=== PATIENT | male | born 1960 | race Caucasian/White ===

== ENCOUNTER 2017-10-12 13:40 | Emergency (ER) | payer OTHER ==
[~2017-10-12] VITALS: Ht 162.6 cm; Wt 87.0 kg
[2017-10-12 13:57] VITALS: BP 129/60; PULSE 111; RESP 22; TEMP 97.8; O2SAT 97
--- NOTE | 2017-10-12 14:09 | PD ---
HPI Chief Complaint: Medical Clearance Time Seen by Provider: 13:59 Travel History International Travel<30 days: No Contact w/Intl Traveler<30days: No Traveled to known affect area: No History of Present Illness HPI 57-year-old male presents to the emergency department under Isai's act. According to the [facility] senior care of intoxicated person report" Mr. Forrester was advised as stumbling drunk, unable to keep balance for treatment. Usama became combative and upset and had to be physically restrained. Due to these conditions, Isai's act is necessary." The patient arrives restrained and restraints are continued upon arrival. The patient is yelling, cursing, and being verbally aggressive towards staff. On my examination he would only answer that he has had 3 alcoholic beverages today and that I need to talk to the land inspector if I think he had more. When I tried to continue to ask him questions he would ask any questions back and I asked them to answer my questions and he came back with the statement, "well are you going to answer my questions first." He continued to curse and belittle the staff in the room. History of present illness is therefore limited secondary to patient uncooperation. PFSH Past Medical History Diabetes: Yes (TYPE 11) Patient Takes Glucophage: No Diminished Hearing: No Hypertension: Yes Tetanus Vaccination: < 5 Years Past Surgical History Other Surgery: Yes (shoulder) Social History Alcohol Use: Yes (DAILY) Tobacco Use: Yes Substance Use: No Allergies-Medications (Allergen,Severity, Reaction): Coded Allergies: lisinopril (Unverified Allergy, Severe, airway edema, 10/12/17) Reported Meds & Prescriptions Reported Meds & Active Scripts Active Active Prescriptions or Reported Medications Unobtainable Review of Systems Except as stated in HPI: all other systems reviewed are Neg Physical Exam Narrative GENERAL: Well-nourished, well-developed male patient, in no acute distress; smells of EtOH; cursing, yelling, being verbally aggressive; agitated ; all extremities restrained SKIN: Warm and dry. HEAD: Atraumatic. Normocephalic. EYES: Pupils equal and round. ENT: Mucosa pink and moist. NECK: Supple. Trachea midline. CARDIOVASCULAR: Regular rate and rhythm. No murmur appreciated. RESPIRATORY: No accessory muscle use. Clear to auscultation. Breath sounds equal bilaterally. GASTROINTESTINAL: Abdomen soft, non-tender, nondistended. Hepatic and splenic margins not palpable. Bowel sounds are active 4 quadrants. MUSCULOSKELETAL: No obvious deformities. No clubbing. No cyanosis. No edema. NEUROLOGICAL: Awake and alert. Oriented 3. No obvious cranial nerve deficits. Motor grossly within normal limits. Normal speech. Moves all extremities. 5/5 strength to all extremities. PSYCHIATRIC: No delusional thought processes. No hallucinations. Data Data Last Documented VS Vital Signs Date Time Temp Pulse Resp B/P (MAP) Pulse Ox O2 Delivery O2 Flow Rate FiO2 10/12/17 13:57 97.8 111 22 129/60 (83) 97 Orders Orders Restraints Violent (10/12/17 14:07) Lorazepam Inj (Ativan Inj) (10/12/17 14:15) Haloperidol Inj (Haldol Inj) (10/12/17 14:15) Ed Discharge Order (10/12/17 18:27) MDM Medical Decision Making Medical Screen Exam Complete: Yes Emergency Medical Condition: Yes Medical Record Reviewed: Yes Differential Diagnosis Alcohol intoxication, alcohol abuse, alcohol dependence, medical clearance Narrative Course 57-year-old male presents under Selby Act. He arrived via EMS in 4-point restraints and restraints will be continued secondary to imminent harm to others. He is being verbally aggressive, cursing, yelling and belittling staff. I tried to talk to the patient and get him to cooperate and he is unwilling to do so. I discussed the patient with Dr. Pro, my attending physician, and she agrees with my plan of care. Haldol 5 mg and Ativan 2 mg ordered. The patient will be given time to calm down, sleep it off and sober up and will be reevaluated at a later time. 1818: Patient is awake and being cooperative. Restraints removed. 1827: Patient has been cooperative and pleasant. He is asking to go home. He has no medical complaints. Patient is clinically sober and safe for discharge. Instructed patient to follow up with primary care provider. Patient verbalizes understanding and agreement with treatment plan. Patient is medically cleared and stable for discharge. Discussed reasons to return to the emergency department. Patient agrees with treatment plan. The patients vital signs are stable and the patient is stable for outpatient follow-up and treatment. Patient discharged home, stable and in no acute distress. Diagnosis Primary Impression: Alcohol intoxication Qualified Codes: F10.929 - Alcohol use, unspecified with intoxication, unspecified Referrals: [facility] Primary Care Physician Patient Instructions: Abuse of Alcohol (ED), Alcohol Dependence (ED), Alcohol Intoxication (ED), General Instructions Additional Instructions: Contract safety to your self and others Stop drinking alcohol Follow-up in the community with community support, such as Alcoholics Anonymous Follow-up with psychiatry Follow-up with primary care provider Follow-up with Mateo Butler Return to the emergency department immediately with worsening of symptoms Med/Other Pt SpecificInfo: No Change to Meds, No Meds Exist/No RX given Scripts Unable to Obtain Active Prescriptions or Reported Meds Disposition: 01 DISCHARGE HOME Condition: Stable Celeste Toure Oct 12, 2017 14:09
[2017-10-12] MEDS ORDERED: LORazepam 2 MG/ML VIAL IM ONE (14:15)
[2017-10-12] MEDS ORDERED: HALOPERIDOL LACTATE 5 MG/ML AMP IM ONE (14:15)
[2017-10-12 18:36] VITALS: BP 142/78
== END 2017-10-12 18:54 | disposition home or self-care (01) ==
LOC: NEPD 13:40
DX: F10.929 Alcohol use, unspecified with intoxication, unspecified (principal); E11.9 Type 2 diabetes mellitus without complications; I10 Essential (primary) hypertension; Z72.0 Tobacco use; Z88.8 Allergy status to other drugs, medicaments and biological substances
CPT/HCPCS: 96372; 99285; J1630; J2060

== ENCOUNTER 2018-01-26 15:24 | Emergency (ER) | payer OTHER ==
[~2018-01-26] VITALS: Ht 172.7 cm; Wt 100.0 kg
[2018-01-26 15:30] VITALS: BP 157/85; PULSE 90; RESP 16; TEMP 98.5; O2SAT 98
--- NOTE | 2018-01-26 16:51 | PD ---
HPI Chief Complaint: Alcohol/Drug Intoxication Time Seen by Provider: 16:50 Travel History International Travel<30 days: No Contact w/Intl Traveler<30days: No Traveled to known affect area: No History of Present Illness HPI 57-year-old male normally seen by the MT, presents to the emergency department voluntarily with his brother for recent binge drinking since Father' s Day. Patient has pain and swelling to the right hand, and left index finger. He is unsure how the injuries occurred. There is old ecchymosis to these areas as well as through the right upper arm, and a couple spots on his back. He states his last drink of alcohol was 2 hours prior to arrival. Patient denies any other medical issues currently. Pain in the hands and fingers is 6 out of 10. Patient denies headache, nausea, vomiting, or diarrhea. Patient denies suicidal or homicidal ideation. Patient is allergic to lisinopril. PFSH Past Medical History Cardiovascular Problems: Yes Diabetes: Yes Diminished Hearing: No Hypertension: Yes Respiratory: Yes Past Surgical History Other Surgery: Yes (shoulder) Social History Alcohol Use: Yes (DAILY) Tobacco Use: Yes Substance Use: No Allergies-Medications (Allergen,Severity, Reaction): Coded Allergies: lisinopril (Unverified Allergy, Severe, airway edema, 10/12/17) Reported Meds & Prescriptions Reported Meds & Active Scripts Active Chlordiazepoxide HCl 25 Mg Capsule 1 Tab PO QID Review of Systems ROS Limitations: Intoxication Except as stated in HPI: all other systems reviewed are Neg General / Constitutional: No: Fever Eyes: No: Visual changes HENT: No: Headaches Cardiovascular: No: Chest Pain or Discomfort Respiratory: No: Shortness of Breath Gastrointestinal: No: Abdominal Pain Genitourinary: No: Dysuria Musculoskeletal: No: Pain Skin: No Rash Neurologic: No: Weakness Psychiatric: Positive: Substance Abuse, No: Anxiety, Depression, Suicidal Ideations, Homicidal Ideation Endocrine: No: Polydipsia Hematologic/Lymphatic: No: Easy Bruising Physical Exam Exam Limitations: Intoxication Narrative GENERAL: Patient appears intoxicated. He is otherwise in no acute distress. SKIN: No open wounds. Patient has multiple ecchymotic areas of various age. Patient has some superficial abrasions to the middle of his back. HEAD: Atraumatic. Normocephalic. Nontender. EYES: Pupils equal and round. No scleral icterus. No injection or drainage. ENT: No nasal bleeding or discharge. Mucous membranes pink and moist. No dental injury. Pharynx is clear. Airways patent. NECK: Trachea midline. Supple and nontender. CARDIOVASCULAR: Regular rate and rhythm. RESPIRATORY: No accessory muscle use. Clear to auscultation. Breath sounds equal bilaterally. GASTROINTESTINAL: Abdomen soft, non-tender, nondistended. Hepatic and splenic margins not palpable. MUSCULOSKELETAL: Extremities without clubbing, cyanosis, or edema. No obvious deformities. Right hand has generalized swelling and ecchymosis across the dorsum. No obvious deformities noted. Manual Qa Tester strength is somewhat limited secondary to pain. NEUROLOGICAL: Awake and alert. No obvious cranial nerve deficits. Motor grossly within normal limits. Five out of 5 muscle strength in the arms and legs. Normal speech. PSYCHIATRIC: Appropriate mood and affect; insight and judgment normal. Data Data Last Documented VS Vital Signs Date Time Temp Pulse Resp B/P (MAP) Pulse Ox O2 Delivery O2 Flow Rate FiO2 01/26/18 15:30 98.5 90 16 157/85 (109) 98 Orders Orders Complete Blood Count With Diff (01/26/18 16:54) Comprehensive Metabolic Panel (01/26/18 16:54) Iv Access Insert/Monitor (01/26/18 16:54) Drug Screen, Random Urine (01/26/18 16:54) Alcohol (Ethanol) (01/26/18 16:54) Finger ([id number]) (01/26/18 16:54) Hand, Complete ([id number]) (01/26/18 16:54) Ice/Cold Pack (01/26/18 16:54) Sodium Chlor 0.9% 1000 Ml Inj (Ns 1000 M (01/26/18 17:00) Thiamine Inj (Thiamine Inj) (01/26/18 17:00) Chlordiazepoxide (Librium) (01/26/18 18:15) Lorazepam (Ativan) (01/26/18 18:15) Splint Or Brace Apply/Monitor (01/26/18 20:42) Ed Discharge Order (01/26/18 20:42) Finger Splint (01/26/18 ) Labs Laboratory Tests Test 01/26/18 17:15 White Blood Count 15.0 TH/MM3 Red Blood Count 5.02 MIL/MM3 Hemoglobin 15.0 GM/DL Hematocrit 44.5 % Mean Corpuscular Volume 88.8 FL Mean Corpuscular Hemoglobin 30.0 PG Mean Corpuscular Hemoglobin Concent 33.8 % Red Cell Distribution Width 15.6 % Platelet Count 227 TH/MM3 Mean Platelet Volume 6.6 FL Neutrophils (%) (Auto) 85.3 % Lymphocytes (%) (Auto) 4.8 % Monocytes (%) (Auto) 9.5 % Eosinophils (%) (Auto) 0.0 % Basophils (%) (Auto) 0.4 % Neutrophils # (Auto) 12.8 TH/MM3 Lymphocytes # (Auto) 0.7 TH/MM3 Monocytes # (Auto) 1.4 TH/MM3 Eosinophils # (Auto) 0.0 TH/MM3 Basophils # (Auto) 0.1 TH/MM3 CBC Comment DIFF FINAL Differential Comment Blood Urea Nitrogen 10 MG/DL Creatinine 1.03 MG/DL Random Glucose 192 MG/DL Total Protein 7.6 GM/DL Albumin 3.9 GM/DL Calcium Level 8.9 MG/DL Alkaline Phosphatase 108 U/L Aspartate Amino Transf (AST/SGOT) 99 U/L Alanine Aminotransferase (ALT/SGPT) 46 U/L Total Bilirubin 1.4 MG/DL Sodium Level 137 MEQ/L Potassium Level 3.4 MEQ/L Chloride Level 101 MEQ/L Carbon Dioxide Level 20.2 MEQ/L Anion Gap 16 MEQ/L Estimat Glomerular Filtration Rate 75 ML/MIN Urine Opiates Screen NEG Urine Barbiturates Screen NEG Urine Amphetamines Screen NEG Urine Benzodiazepines Screen NEG Urine Cocaine Screen NEG Urine Cannabinoids Screen POS Ethyl Alcohol Level 88 MG/DL MDM Medical Decision Making Medical Screen Exam Complete: Yes Emergency Medical Condition: Yes Medical Record Reviewed: Yes Differential Diagnosis EtOH intoxication. Alcohol abuse. Fracture. Contusions Narrative Course Labs ordered including CBC, CMP, urine drug screen, serum alcohol, and x-rays of the right hand and left index finger ordered. Psych screen is ordered as patient would like to go to [facility] Patient is given 25 mg Librium p.o. as well as 1 mg lorazepam p.o. for withdrawal symptoms. X-rays the right hand show no acute process per radiologist. X-ray of the left index finger shows a angulated fracture of the base of the proximal phalanx. Finger splint and papa tape was applied with reapproximation. Patient should follow-up with the MT for his finger fracture after discharge. 1900 hrs. care of the patient is turned over to Isma Diaz PA-C at change of shift. Scripts Chlordiazepoxide HCl (Chlordiazepoxide HCl) 25 Mg Capsule 1 TAB PO QID, #12 Prov: Maegan Carrizales 01/26/18 Condition: Stable Gen Whittington Jan 26, 2018 16:51
[2018-01-26] MEDS ORDERED: THIAMINE HCL 200 MG/2 ML VIAL IM ONE (17:00)
[2018-01-26] MEDS ORDERED: SODIUM CHLOR 0.9% 1000 ML INJ 1,000 ML IV ONE (17:00)
[2018-01-26 17:26] LABS: AUTOMATED NEUTROPHIL # 12.8 TH/MM3 (1.8-7.7); BASOPHIL # 0.1 TH/MM3 (0-0.2); BASOPHIL % 0.4 % (0.0-2.0); HEMATOCRIT 44.5 % (39.0-51.0); LYMPH % 4.8 % (9.0-44.0); LYMPHOCYTE # 0.7 TH/MM3 (1.0-4.8); MEAN CELL VOLUME 88.8 FL (80.0-100.0); MEAN CORPUSCULAR HGB CONC 33.8 % (32.0-36.0); MEAN PLATELET VOLUME 6.6 FL (7.0-11.0); MONO % 9.5 % (0.0-8.0); MONOCYTE # 1.4 TH/MM3 (0-0.9); NEUT % 85.3 % (16.0-70.0); PLATELET COUNT 227 TH/MM3 (150-450); RED BLOOD COUNT 5.02 MIL/MM3 (4.50-5.90); RED CELL DISTRIBUTION WIDTH 15.6 % (11.6-17.2)
--- NOTE | 2018-01-26 17:55 | RADRPT ---
EXAM DATE: 01/26/2018 5:48 PM EDT AGE/SEX: 57 years / Male INDICATIONS: Trauma. CLINICAL DATA: This is the patient's initial encounter. Patient reports that signs and symptoms have been present for 1 day and indicates a pain score of Nonresponsive. MEDICAL/SURGICAL HISTORY: Non-responsive. Non-responsive. COMPARISON: No prior exams available for comparison. FINDINGS: Two-view examination of the second digit demonstrates an oblique fracture through the proximal metaph ysis of the proximal phalanx with moderate dorsal angulation. Metallic prosthesis in the distal aspec t of the second metacarpal. No dislocation at the MCP joint. There is deformity of the distal tuft of the second digit suggesting old healed trauma. CONCLUSION: Angulated fracture of the proximal phalanx of the second digit. Electronically signed by: Leoncio Geller MD 01/26/2018 5:53 PM EDT
[2018-01-26 17:57] LABS: ALBUMIN 3.9 GM/DL (3.4-5.0); ALT (GPT) 46 U/L (12-78); AST (GOT) 99 U/L (15-37); BICARBONATE 20.2 MEQ/L (21.0-32.0); BLOOD UREA NITROGEN 10 MG/DL (7-18); CALCIUM 8.9 MG/DL (8.5-10.1); CHLORIDE 101 MEQ/L (98-107); CREATININE 1.03 MG/DL (0.60-1.30); GLOMERULAR FILTRATION RATE 75 ML/MIN (>89); GLUCOSE,RANDOM 192 MG/DL (74-106); SODIUM (NA) 137 MEQ/L (136-145)
[2018-01-26 17:59] LABS: ALKALINE PHOSPHATASE 108 U/L (45-117); TOTAL BILIRUBIN ADULT 1.4 MG/DL (0.2-1.0); TOTAL PROTEIN 7.6 GM/DL (6.4-8.2)
--- NOTE | 2018-01-26 18:00 | RADRPT ---
EXAM DATE: 01/26/2018 5:47 PM EDT AGE/SEX: 57 years / Male INDICATIONS: Trauma. CLINICAL DATA: This is the patient's initial encounter. Patient reports that signs and symptoms have been present for 1 day and indicates a pain score of Nonresponsive. MEDICAL/SURGICAL HISTORY: Non-responsive. Non-responsive. COMPARISON: No prior exams available for comparison. FINDINGS: There are 6 screws seen through the central and medial carpal bones. There is fusion between the [place], hamate, triquetral bone and lunate. 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 There are some hypertrophic change in the expected location of the scaphoid. There is some joint space narrowing an d hypertrophic change at the fifth DIP joint. An acute abnormality is not seen. CONCLUSION: Chronic changes as described above. Electronically signed by: Vijay Herbert MD 01/26/2018 5:59 PM EDT
[2018-01-26] MEDS ORDERED: chlordiazePOXIDE 25 MG CAP PO ONE (18:15)
[2018-01-26] MEDS ORDERED: LORazepam 1 MG TAB PO ONE (18:15)
[2018-01-26] MEDS ORDERED: CHLO25CA9 PO (20:45)
--- NOTE | 2018-01-26 20:48 | PD ---
Data Data Last Documented VS Vital Signs Date Time Temp Pulse Resp B/P (MAP) Pulse Ox O2 Delivery O2 Flow Rate FiO2 01/26/18 15:30 98.5 90 16 157/85 (109) 98 Orders Orders Complete Blood Count With Diff (01/26/18 16:54) Comprehensive Metabolic Panel (01/26/18 16:54) Iv Access Insert/Monitor (01/26/18 16:54) Drug Screen, Random Urine (01/26/18 16:54) Alcohol (Ethanol) (01/26/18 16:54) Finger (Nxs2oph) (01/26/18 16:54) Hand, Complete ([id number]) (01/26/18 16:54) Ice/Cold Pack (01/26/18 16:54) Sodium Chlor 0.9% 1000 Ml Inj (Ns 1000 M (01/26/18 17:00) Thiamine Inj (Thiamine Inj) (01/26/18 17:00) Chlordiazepoxide (Librium) (01/26/18 18:15) Lorazepam (Ativan) (01/26/18 18:15) Splint Or Brace Apply/Monitor (01/26/18 20:42) Ed Discharge Order (01/26/18 20:42) Labs Laboratory Tests Test 01/26/18 17:15 White Blood Count 15.0 TH/MM3 Red Blood Count 5.02 MIL/MM3 Hemoglobin 15.0 GM/DL Hematocrit 44.5 % Mean Corpuscular Volume 88.8 FL Mean Corpuscular Hemoglobin 30.0 PG Mean Corpuscular Hemoglobin Concent 33.8 % Red Cell Distribution Width 15.6 % Platelet Count 227 TH/MM3 Mean Platelet Volume 6.6 FL Neutrophils (%) (Auto) 85.3 % Lymphocytes (%) (Auto) 4.8 % Monocytes (%) (Auto) 9.5 % Eosinophils (%) (Auto) 0.0 % Basophils (%) (Auto) 0.4 % Neutrophils # (Auto) 12.8 TH/MM3 Lymphocytes # (Auto) 0.7 TH/MM3 Monocytes # (Auto) 1.4 TH/MM3 Eosinophils # (Auto) 0.0 TH/MM3 Basophils # (Auto) 0.1 TH/MM3 CBC Comment DIFF FINAL Differential Comment Blood Urea Nitrogen 10 MG/DL Creatinine 1.03 MG/DL Random Glucose 192 MG/DL Total Protein 7.6 GM/DL Albumin 3.9 GM/DL Calcium Level 8.9 MG/DL Alkaline Phosphatase 108 U/L Aspartate Amino Transf (AST/SGOT) 99 U/L Alanine Aminotransferase (ALT/SGPT) 46 U/L Total Bilirubin 1.4 MG/DL Sodium Level 137 MEQ/L Potassium Level 3.4 MEQ/L Chloride Level 101 MEQ/L Carbon Dioxide Level 20.2 MEQ/L Anion Gap 16 MEQ/L Estimat Glomerular Filtration Rate 75 ML/MIN Urine Opiates Screen NEG Urine Barbiturates Screen NEG Urine Amphetamines Screen NEG Urine Benzodiazepines Screen NEG Urine Cocaine Screen NEG Urine Cannabinoids Screen POS Ethyl Alcohol Level 88 MG/DL MDM Medical Record Reviewed: Yes Supervised Visit with FERNANDO: No Narrative Course See previous providers notes for complete history of present illness. This patient presents complaining of alcoholism. Symptom onset unknown. He reports that he has been a heavy drinker for quite some time and would like to quit drinking so much. He is denying any suicidal ideation, homicidal ideation, depression, hallucinations. He does have a fractured left index finger. Previous provider put a splint on it however he removed it. This will be placed back on. His alcohol level was 88. I discussed with the patient that he would likely benefit from detox at a specialty center such as [facility]. He agrees. He will be given a packet of information about local detoxification centers. He will be discharged with a short course of Librium. Diagnosis Primary Impression: Alcoholism Additional Impression: Fracture of phalanx of left index finger Referrals: Carson Buenrostro MD [facility] Additional Instruction: Do not remove the splint. Follow-up at a detoxification center such as [facility] for help with your alcoholism. Follow-up with a hand specialist such as Dr. Buenrostro in regards to your finger fracture. Return for any emergent medical conditions. Med/Other Pt SpecificInfo: Prescription(s) given, Orthopedic Instructions Scripts Chlordiazepoxide HCl (Chlordiazepoxide HCl) 25 Mg Capsule 1 TAB PO QID, #12 Prov: Maegan Carrizales DO 01/26/18 Disposition: 01 DISCHARGE HOME Condition: Stable Isma Baltazar Jan 26, 2018 20:48
== END 2018-01-26 21:23 | disposition home or self-care (01) ==
LOC: NEPD 15:24
DX: F10.20 Alcohol dependence, uncomplicated (principal); S62.611A Displaced fracture of proximal phalanx of left index finger, initial encounter for closed fracture; S20.419A Abrasion of unspecified back wall of thorax, initial encounter; Y90.4 Blood alcohol level of 80-99 mg/100 ml; X58.XXXA Exposure to other specified factors, initial encounter; I10 Essential (primary) hypertension; E11.9 Type 2 diabetes mellitus without complications; Z72.0 Tobacco use; Z88.8 Allergy status to other drugs, medicaments and biological substances; Z79.899 Other long term (current) drug therapy
CPT/HCPCS: 29130; 73130; 73140; 80053; 80307; 85025; 96360; 96372; 99284; J3411; J7030

== ENCOUNTER 2018-02-02 16:10 | Inpatient (IN) ==
[2018-02-06] MEDS ORDERED: PROTAMINE SULFATE IV.CONT PRN ×2
[2018-02-06] MEDS ORDERED: Chlorhexidine Gluconate 2% 1 Pack (2 Cloths) TOPICAL PRN
[2018-02-06] MEDS ORDERED: Potassium Chlor 40 mEq Premix 40 MEQ/100 ML PIGGYBACK IV.SIG ONE
[2018-02-06] MEDS ORDERED: Heparin 10,000 UNITS/10 ML Vial (for IV use) IV.PUSH PRN
[2018-02-06] MEDS ORDERED: Sodium Bicarbonate 8.4% Inj 50 MEQ/50 ML Syringe IV.SIG SCH
[2018-02-06] MEDS ORDERED: Dextrose 50% in Water 50 ML Vial IV.PUSH PRN
[2018-02-06] MEDS ORDERED: SODIUM CHLORIDE 0.45% IV.CONT SCH ×2
[2018-02-06] MEDS ORDERED: Sod Chloride 0.9% Inj 1,000 ML IV.SIG PRN
[2018-02-06] MEDS ORDERED: SODIUM CHLOR 0.9% IV.CONT PRN ×2
[2018-02-06] MEDS ORDERED: SODIUM BICARBONATE IV.CONT SCH ×2
[2018-02-06] MEDS ORDERED: Heparin Drip 25,000 UNIT/250 ML BAG IV.CONT PRN
[2018-02-06] MEDS ORDERED: [UNRECOGNIZED DRUG - OTHER] OTHER SCH
[2018-02-06] MEDS ORDERED: Sodium Bicarbonate 8.4% Inj 75 MEQ in Sodium Chloride 0.45 % Inj 1,000 ML IV.CONT SCH ×2
[2018-02-06] MEDS ORDERED: Sodium Bicarbonate 8.4% Inj 150 MEQ in Water for Inj, Sterile 850 ML IV.CONT SCH ×2
[2018-02-06] MEDS ORDERED: Sod Chloride 0.9% Inj 1,000 ML IV.SIG SCH ×2 (01:00)
[2018-02-06] MEDS ORDERED: fentaNYL 10 mcg/mL Premix Drip 2,500 MCG/250 ML BAG ONE (01:44)
[2018-02-06] MEDS ORDERED: Calcium Chloride Inj 2 GM in Sodium Chlor 0.9% Inj 100 ML IV.SIG ONE (02:00)
[2018-02-06] MEDS: Amiodarone Inj 450 MG in Sodium Chlor 0.9% Inj 241 ML IV.SIG SCH ×2 (02:03→16:46)
[2018-02-06] MEDS: fentaNYL 10 mcg/mL Premix Drip 2,500 MCG/250 ML BAG IV.CONT PRN ×2 (02:18→13:55)
[2018-02-06] MEDS ORDERED: Potassium Chlor 20 mEq Premix 20 MEQ/100 ML PIGGYBACK IV.SIG ONE (03:17)
[2018-02-06] MEDS ORDERED: Mag Sulf 1 gm/100 ml Premix 100 ML IV.SIG ONE (03:17)
[2018-02-06] MEDS ORDERED: Digoxin Inj 500 MCG/2 ML Ampul IV.PUSH ONE (03:22)
[2018-02-06] MEDS: Propofol 1000 mg/100 ml Inj 1,000 MG/100 ML BOTTLE IV.CONT PRN (03:42)
[2018-02-06] MEDS: Phenylephrine Inj 40 MG in Dextrose 5% in Water Inj 496 ML IV.CONT PRN ×6 (03:44→16:21)
[2018-02-06 04:08] LABS: Hemoglobin 11.7 gm/dL (13.0-17.0); Mean Corpuscular HGB Conc 33.3 % (32.0-36.0); Mean Corpuscular Hemoglobin 29.3 pg (27.0-34.0); Mean Corpuscular Volume 88.1 fL (80.0-100.0); Platelet Count 66 th/mm3 (150-450); Red Blood Count 3.97 mil/mm3 (4.50-5.90); White Blood Count 24.5 th/mm3 (4.0-11.0)
[2018-02-06 04:29] LABS: Activated Partial Thrombo Time 34.5 sec (24.3-30.1); INR 1.1 Ratio; Prothrombin Time 10.7 sec (9.8-11.6)
[2018-02-06 04:54] LABS: Albumin 1.1 g/dL (3.4-5.0); Calcium 6.2 mg/dL (8.5-10.1); Carbon Dioxide 22.6 meq/L (21.0-32.0); Magnesium 1.8 mg/dL (1.5-2.5); Phosphorus 4.4 mg/dL (2.5-4.9); Potassium 3.6 meq/L (3.5-5.1); Total Protein 4.6 g/dL (6.4-8.2)
[2018-02-06] MEDS: SODIUM CHLOR 0.9% IV.SIG SCH ×3 (05:17→22:30)
[2018-02-06] MEDS: TAZOBACTAM IV.SIG SCH ×2 (05:17→13:02)
[2018-02-06] MEDS: CEFTOLOZANE IV.SIG SCH ×2 (05:17→13:02)
[2018-02-06] MEDS: Chlorhexidine Gluconate 2% 1 Pack (2 Cloths) TOPICAL SCH (05:21)
[2018-02-06] MEDS ORDERED: Heparin - SQ 10,000 UNITS/ML Vial SQ SCH (06:00)
[2018-02-06] MEDS: Pantoprazole Inj 40 MG Vial IV.PUSH SCH (08:02)
[2018-02-06] MEDS: Chlorhexidine 0.12% Oral Kit 15 ML UDC OROPHARYNG SCH ×2 (08:03→21:17)
[2018-02-06] MEDS ORDERED: Ceftaroline Inj 300 MG in Sodium Chlor 0.9% Inj 100 ML IV.SIG SCH (09:00)
[2018-02-06 09:28] LABS: Carbon Dioxide 24.1 meq/L (21.0-32.0)
[2018-02-06 09:29] LABS: Calcium 6.2 mg/dL (8.5-10.1)
--- NOTE | 2018-02-06 09:36 | P.PN ---
Subjective Interval history: Patient remain intubated and sedated on Levophed, BP is on lower side. Physical Exam Vital signs: Vital Signs 02/06/18 00:05 02/06/18 01:00 02/06/18 02:00 Temperature Pulse Rate 166 H 102 H 108 H Respiratory Rate 18 18 18 Blood Pressure 101/55 L 93/53 L Pulse Oximetry 93 L 93 L 93 L 02/06/18 03:00 02/06/18 03:03 02/06/18 03:24 Temperature Pulse Rate 104 H 107 H Respiratory Rate 18 18 18 Blood Pressure 99/57 L 82/60 L Pulse Oximetry 93 L 94 L 95 02/06/18 04:00 02/06/18 05:00 02/06/18 06:00 Temperature Pulse Rate 107 H 104 H 101 H Respiratory Rate 2 L 14 6 L Blood Pressure 110/57 L 106/57 L 105/64 Pulse Oximetry 93 L 93 L 94 L 02/06/18 07:00 02/06/18 08:36 02/06/18 08:43 Temperature 100.1 F H Pulse Rate 103 H 103 H 103 H Respiratory Rate 19 18 18 Blood Pressure 100/57 L 98/55 L Pulse Oximetry 100 94 L 94 L Intake & Output 02/05/18 02/06/18 02/06/18 18:59 06:59 18:59 Intake Total 520 / 520 100 / 100 Output Total 270 / 270 Balance 250 / 250 100 / 100 Weight 101 kg Intake: IV 520 / 520 100 / 100 Calcium Chloride Inj 2 GM In NS 120 / 120 Inj 100 ML @ 120 mls/hr IV.SIG ONCE ONE Rx#:[id number] Teflaro Inj 300 MG In NS Inj 100 / 100 100 ML @ 100 mls/hr IV.SIG Q12HR LEROY Rx#:[id number] Zerbaxa Inj 375 MG In NS Inj 100 / 100 100 ML @ 100 mls/hr IV.SIG Q8HR LEROY Rx#:[id number] Magnesium Sulfate 1 gm/D5W 100 100 / 100 ml Premix 100 ML @ 100 mls/hr IV.SIG ONCE ONE Rx#:[id number] Flagyl 500 MG Inj 100 ML @ 100 200 / 200 mls/hr IV.SIG Q6H LEROY Rx#: [id number] Output: Urine 30 / 30 Gastric Drainage 230 / 230 Orogastric Tube 230 / 230 Chest Tube Drainage 10 / 10 #1 Right Anterior 10 / 10 - Constitutional Comments: Intubated and sedated. - Routine HEENT Exam Head: Present: normocephalic - Routine Neck Exam Present: supple, trachea midline - Routine Respiratory Exam Present: patient mechanically ventilated, decreased breath sounds, prolonged expiratory phase, rales, rhonchi - Routine Cardiovascular Exam Present: S1, S2, tachycardia, irregularly irregular - Routine Abdominal Exam Present: soft, distended, firm - Routine Extremities Exam Present: edema - Routine Neurological Exam Sedated and intubated. - Urinary Catheter Management Coude Cath placed during this visit: yes Insertion date: 02/02/18 Indwelling Urethral Catheter Cath placed during this visit: yes Urethral indwelling: Yes Reason for continuing: Chronic Urinary Retention Insertion date: 02/15/18 Insertion time: 20:00 Results - Labs CBC & Chem 7: 02/18/18 10:45 02/18/18 04:01 Laboratory Results - last 24 hr 02/02/18 02/02/18 02/02/18 16:22 16:22 16:22 WBC RBC Hgb Hct MCV MCH MCHC RDW Plt Count MPV Neut % (Auto) Lymph % (Auto) [place] % (Auto) Eos % (Auto) Baso % (Auto) Neut # (Auto) Lymph # (Auto) [place] # (Auto) Eos # (Auto) Baso # (Auto) CBC Comment Total Counted Neutrophils % (Manual) Band Neutrophils % Lymphocytes % Monocytes % Eosinophils % Neutrophils # (Manual) Metamyelocytes Nucleated RBCs Differential Comment Toxic Granulation Toxic Vacuolation Dohle Bodies Platelet Estimate Plt Morphology Comment Target Cells Tear Drop Cells [place] Cells RBC Morph Comment PT INR APTT Fibrinogen Puncture Site Patient Temperature HCO3 Base Excess O2 Saturation ABG pH ABG pCO2 ABG pO2 ABG O2 Content ABG Carboxyhemoglobin ABG Methemoglobin Hemoglobin O2 Delivery Device Vent Setting Inspired O2 Sodium 133 L Potassium 3.4 L Chloride 96 L Carbon Dioxide 10.9 L Anion Gap 26 H BUN 81 H Creatinine 5.71 H Estimated GFR 10 L Random Glucose 142 H Serum Osmolality Lactic Acid Calcium 5.8 L* Prot Corrected Calcium 6.5 L* Phosphorus Magnesium Iron TIBC % Saturation Ferritin Total Bilirubin 1.7 H AST 1685 H ALT 307 H Alkaline Phosphatase 66 Ammonia LESS THAN 10 L Total Creatine Kinase 1286 H CK-MB (CK-2) 8.6 H CK-MB (CK-2) % 0.7 Troponin I 0.03 Total Protein 5.4 L D Albumin 1.8 L Prealbumin Nlkoy-9-Ksygokctlfn Amylase Lipase Tumor Marker AFP TSH 3rd Generation 1.610 Urine Color Urine Turbidity Urine pH Ur Specific [place] Urine Protein Urine Glucose (UA) Urine Ketones Urine Occult Blood Urine Nitrite Urine Bilirubin Urine Urobilinogen Ur Leukocyte Esterase Urine RBC Urine WBC Urine Bacteria Micro UA Comment Urine Osmolality Ur Random Creatinine Ur Random Sodium Pleural pH Pleural WBC Pleural RBC Pleural Neutrophils Pleural Lymphocytes Pleural Monocytes Pleural Fluid Comment Pleural Total Protein Pleural LDH Pleural Glucose Nasal Screen MRSA (PCR) Random Vancomycin Salicylates 5.1 Urine Opiates Screen Acetaminophen LESS THAN 2.0 L Ur Barbiturates Screen Ur Amphetamines Screen U Benzodiazepines Scrn Urine Cocaine Screen U Cannabinoids Screen Ethyl Alcohol LESS THAN 3 GARY Screen Hepatitis A IgM Ab Hep Bs Antigen Hep B Core IgM Ab Hep C IgG Ab HIV 1&2 Ab/P24 Ag 4thGn 02/02/18 02/02/18 02/02/18 16:22 16:22 16:22 WBC 3.4 L RBC 4.98 Hgb 14.7 Hct 44.2 MCV 88.8 MCH 29.6 MCHC 33.3 RDW 15.9 Plt Count 50 L D MPV 11.3 H Neut % (Auto) 92.4 H Lymph % (Auto) 4.4 L [place] % (Auto) 2.6 Eos % (Auto) 0.4 Baso % (Auto) 0.2 Neut # (Auto) 3.2 Lymph # (Auto) 0.2 L [place] # (Auto) 0.1 Eos # (Auto) 0.0 Baso # (Auto) 0.0 CBC Comment AUTO DIFF Total Counted 100 Neutrophils % (Manual) 63 Band Neutrophils % 30 H Lymphocytes % 4 L Monocytes % 2 Eosinophils % 1 Neutrophils # (Manual) 3.2 Metamyelocytes Nucleated RBCs Differential Comment FINAL DIFF MANUAL Toxic Granulation 3+ H Toxic Vacuolation PRESENT H Dohle Bodies PRESENT H Platelet Estimate LOW L Plt Morphology Comment NORMAL Target Cells Tear Drop Cells Uriah Cells 2+ H RBC Morph Comment PT 12.0 H INR 1.2 APTT 32.9 H Fibrinogen Puncture Site Patient Temperature HCO3 Base Excess O2 Saturation ABG pH ABG pCO2 ABG pO2 ABG O2 Content ABG Carboxyhemoglobin ABG Methemoglobin Hemoglobin O2 Delivery Device Vent Setting Inspired O2 Sodium Potassium Chloride Carbon Dioxide Anion Gap BUN Creatinine Estimated GFR Random Glucose Serum Osmolality Lactic Acid Calcium Prot Corrected Calcium Phosphorus Magnesium Iron TIBC % Saturation Ferritin Total Bilirubin AST ALT Alkaline Phosphatase Ammonia Total Creatine Kinase CK-MB (CK-2) CK-MB (CK-2) % Troponin I Total Protein Albumin Prealbumin LESS THAN 3 L Rpdfk-4-Pyskcqndtxm Amylase Lipase Tumor Marker AFP TSH 3rd Generation Urine Color Urine Turbidity Urine pH Ur Specific [place] Urine Protein Urine Glucose (UA) Urine Ketones Urine Occult Blood Urine Nitrite Urine Bilirubin Urine Urobilinogen Ur Leukocyte Esterase Urine RBC Urine WBC Urine Bacteria Micro UA Comment Urine Osmolality Ur Random Creatinine Ur Random Sodium Pleural pH Pleural WBC Pleural RBC Pleural Neutrophils Pleural Lymphocytes Pleural Monocytes Pleural Fluid Comment Pleural Total Protein Pleural LDH Pleural Glucose Nasal Screen MRSA (PCR) Random Vancomycin Salicylates Urine Opiates Screen Acetaminophen Ur Barbiturates Screen Ur Amphetamines Screen U Benzodiazepines Scrn Urine Cocaine Screen U Cannabinoids Screen Ethyl Alcohol GARY Screen Hepatitis A IgM Ab Hep Bs Antigen Hep B Core IgM Ab Hep C IgG Ab HIV 1&2 Ab/P24 Ag 4thGn 02/02/18 02/02/18 02/02/18 16:22 17:09 17:14 WBC RBC Hgb Hct MCV MCH MCHC RDW Plt Count MPV Neut % (Auto) Lymph % (Auto) [place] % (Auto) Eos % (Auto) Baso % (Auto) Neut # (Auto) Lymph # (Auto) [place] # (Auto) Eos # (Auto) Baso # (Auto) CBC Comment Total Counted Neutrophils % (Manual) Band Neutrophils % Lymphocytes % Monocytes % Eosinophils % Neutrophils # (Manual) Metamyelocytes Nucleated RBCs Differential Comment Toxic Granulation Toxic Vacuolation Dohle Bodies Platelet Estimate Plt Morphology Comment Target Cells Tear Drop Cells [place] Cells RBC Morph Comment PT INR APTT Fibrinogen Puncture Site Patient Temperature HCO3 Base Excess O2 Saturation ABG pH ABG pCO2 ABG pO2 ABG O2 Content ABG Carboxyhemoglobin ABG Methemoglobin Hemoglobin O2 Delivery Device Vent Setting Inspired O2 Sodium Potassium Chloride Carbon Dioxide Anion Gap BUN Creatinine Estimated GFR Random Glucose Serum Osmolality 304 H Lactic Acid 6.5 H* Calcium Prot Corrected Calcium Phosphorus Magnesium Iron TIBC % Saturation Ferritin Total Bilirubin AST ALT Alkaline Phosphatase Ammonia Total Creatine Kinase CK-MB (CK-2) CK-MB (CK-2) % Troponin I Total Protein Albumin Prealbumin Sbeyg-8-Rshkiofpsue Amylase Lipase Tumor Marker AFP TSH 3rd Generation Urine Color Taisha Urine Turbidity CLOUDY H Urine pH 5.0 Ur Specific [place] 1.017 Urine Protein 100 H Urine Glucose (UA) 50 Urine Ketones NEG Urine Occult Blood LARGE H Urine Nitrite NEG Urine Bilirubin NEG Urine Urobilinogen 2.0 H Ur Leukocyte Esterase NEG Urine RBC Urine WBC Urine Bacteria FEW H Micro UA Comment CATH-CULTURE IND Urine Osmolality Ur Random Creatinine Ur Random Sodium Pleural pH Pleural WBC Pleural RBC Pleural Neutrophils Pleural Lymphocytes Pleural Monocytes Pleural Fluid Comment Pleural Total Protein Pleural LDH Pleural Glucose Nasal Screen MRSA (PCR) Random Vancomycin Salicylates Urine Opiates Screen Acetaminophen Ur Barbiturates Screen Ur Amphetamines Screen U Benzodiazepines Scrn Urine Cocaine Screen U Cannabinoids Screen Ethyl Alcohol GARY Screen Hepatitis A IgM Ab Hep Bs Antigen Hep B Core IgM Ab Hep C IgG Ab HIV 1&2 Ab/P24 Ag 4thGn 02/02/18 02/02/18 02/02/18 17:20 17:21 17:21 WBC RBC Hgb Hct MCV MCH MCHC RDW Plt Count MPV Neut % (Auto) Lymph % (Auto) [place] % (Auto) Eos % (Auto) Baso % (Auto) Neut # (Auto) Lymph # (Auto) [place] # (Auto) Eos # (Auto) Baso # (Auto) CBC Comment Total Counted Neutrophils % (Manual) Band Neutrophils % Lymphocytes % Monocytes % Eosinophils % Neutrophils # (Manual) Metamyelocytes Nucleated RBCs Differential Comment Toxic Granulation Toxic Vacuolation Dohle Bodies Platelet Estimate Plt Morphology Comment Target Cells Tear Drop Cells [place] Cells RBC Morph Comment PT INR APTT Fibrinogen Puncture Site LT FEMORAL Patient Temperature 98.6 HCO3 15 L* Base Excess -12.9 L O2 Saturation 97 ABG pH 7.13 L* ABG pCO2 47 H ABG pO2 212 H ABG O2 Content 17.8 ABG Carboxyhemoglobin 0.5 ABG Methemoglobin 0.8 Hemoglobin 12.7 O2 Delivery Device VENTILATOR Vent Setting AC/16/500/+5 Inspired O2 100 Sodium Potassium Chloride Carbon Dioxide Anion Gap BUN Creatinine Estimated GFR Random Glucose Serum Osmolality Lactic Acid Calcium Prot Corrected Calcium Phosphorus Magnesium Iron TIBC % Saturation Ferritin Total Bilirubin AST ALT Alkaline Phosphatase Ammonia Total Creatine Kinase CK-MB (CK-2) CK-MB (CK-2) % Troponin I Total Protein Albumin Prealbumin Otofk-5-Rmowqwnsqkd Amylase Lipase Tumor Marker AFP TSH 3rd Generation Urine Color Urine Turbidity Urine pH Ur Specific [place] Urine Protein Urine Glucose (UA) Urine Ketones Urine Occult Blood Urine Nitrite Urine Bilirubin Urine Urobilinogen Ur Leukocyte Esterase Urine RBC Urine WBC Urine Bacteria Micro UA Comment Urine Osmolality 328 Ur Random Creatinine 237.3 Ur Random Sodium 14 Pleural pH Pleural WBC Pleural RBC Pleural Neutrophils Pleural Lymphocytes Pleural Monocytes Pleural Fluid Comment Pleural Total Protein Pleural LDH Pleural Glucose Nasal Screen MRSA (PCR) Random Vancomycin Salicylates Urine Opiates Screen NEG Acetaminophen Ur Barbiturates Screen NEG Ur Amphetamines Screen NEG U Benzodiazepines Scrn POS H Urine Cocaine Screen NEG U Cannabinoids Screen POS H Ethyl Alcohol GARY Screen Hepatitis A IgM Ab Hep Bs Antigen Hep B Core IgM Ab Hep C IgG Ab HIV 1&2 Ab/P24 Ag 4thGn 02/02/18 02/02/18 02/02/18 18:03 21:30 21:30 WBC RBC Hgb Hct MCV MCH MCHC RDW Plt Count MPV Neut % (Auto) Lymph % (Auto) [place] % (Auto) Eos % (Auto) Baso % (Auto) Neut # (Auto) Lymph # (Auto) [place] # (Auto) Eos # (Auto) Baso # (Auto) CBC Comment Total Counted Neutrophils % (Manual) Band Neutrophils % Lymphocytes % Monocytes % Eosinophils % Neutrophils # (Manual) Metamyelocytes Nucleated RBCs Differential Comment Toxic Granulation Toxic Vacuolation Dohle Bodies Platelet Estimate Plt Morphology Comment Target Cells Tear Drop Cells Uriah Cells RBC Morph Comment PT INR APTT Fibrinogen Puncture Site ART LINE Patient Temperature 98.6 HCO3 19 L Base Excess -5.7 L O2 Saturation 95 ABG pH 7.33 L ABG pCO2 37 L ABG pO2 129 H ABG O2 Content 16.1 ABG Carboxyhemoglobin 0.8 ABG Methemoglobin 1.5 Hemoglobin 11.9 L O2 Delivery Device VENTILATOR Vent Setting VOLUME A/C Inspired O2 100 Sodium 138 Potassium Chloride Carbon Dioxide Anion Gap BUN Creatinine Estimated GFR Random Glucose Serum Osmolality Lactic Acid 7.0 H* Calcium Prot Corrected Calcium Phosphorus Magnesium Iron TIBC % Saturation Ferritin Total Bilirubin AST ALT Alkaline Phosphatase Ammonia Total Creatine Kinase 1596 H CK-MB (CK-2) 8.8 H CK-MB (CK-2) % 0.6 Troponin I 0.04 Total Protein Albumin Prealbumin Ivsld-7-Gpqyfqqqesu Amylase Lipase Tumor Marker AFP TSH 3rd Generation Urine Color Urine Turbidity Urine pH Ur Specific [place] Urine Protein Urine Glucose (UA) Urine Ketones Urine Occult Blood Urine Nitrite Urine Bilirubin Urine Urobilinogen Ur Leukocyte Esterase Urine RBC Urine WBC Urine Bacteria Micro UA Comment Urine Osmolality Ur Random Creatinine Ur Random Sodium Pleural pH Pleural WBC Pleural RBC Pleural Neutrophils Pleural Lymphocytes Pleural Monocytes Pleural Fluid Comment Pleural Total Protein Pleural LDH Pleural Glucose Nasal Screen MRSA (PCR) Random Vancomycin Salicylates Urine Opiates Screen Acetaminophen Ur Barbiturates Screen Ur Amphetamines Screen U Benzodiazepines Scrn Urine Cocaine Screen U Cannabinoids Screen Ethyl Alcohol GARY Screen Hepatitis A IgM Ab Hep Bs Antigen Hep B Core IgM Ab Hep C IgG Ab HIV 1&2 Ab/P24 Ag 4thGn 02/02/18 02/03/18 02/03/18 23:15 04:15 04:15 WBC RBC Hgb Hct MCV MCH MCHC RDW Plt Count MPV Neut % (Auto) Lymph % (Auto) [place] % (Auto) Eos % (Auto) Baso % (Auto) Neut # (Auto) Lymph # (Auto) [place] # (Auto) Eos # (Auto) Baso # (Auto) CBC Comment Total Counted Neutrophils % (Manual) Band Neutrophils % Lymphocytes % Monocytes % Eosinophils % Neutrophils # (Manual) Metamyelocytes Nucleated RBCs Differential Comment Toxic Granulation Toxic Vacuolation Dohle Bodies Platelet Estimate Plt Morphology Comment Target Cells Tear Drop Cells Uri[place] Cells RBC Morph Comment PT INR APTT Fibrinogen Puncture Site Patient Temperature HCO3 Base Excess O2 Saturation ABG pH ABG pCO2 ABG pO2 ABG O2 Content ABG Carboxyhemoglobin ABG Methemoglobin Hemoglobin O2 Delivery Device Vent Setting Inspired O2 Sodium 136 Potassium 3.4 L Chloride 97 L Carbon Dioxide 15.5 L Anion Gap 24 H BUN 85 H Creatinine 5.55 H Estimated GFR 11 L Random Glucose 121 H Serum Osmolality Lactic Acid 6.6 H* Calcium 6.8 L* D Prot Corrected Calcium 7.9 L D Phosphorus 5.0 H Magnesium 2.0 Iron TIBC % Saturation Ferritin Total Bilirubin 2.4 H AST 1778 H ALT 294 H Alkaline Phosphatase 67 Ammonia Total Creatine Kinase 2164 H CK-MB (CK-2) 9.3 H CK-MB (CK-2) % 0.4 Troponin I 0.09 H Total Protein 4.9 L Albumin 1.4 L Prealbumin Ycdxa-6-Zydsfubplav Amylase Lipase Tumor Marker AFP TSH 3rd Generation Urine Color Urine Turbidity Urine pH Ur Specific [place] Urine Protein Urine Glucose (UA) Urine Ketones Urine Occult Blood Urine Nitrite Urine Bilirubin Urine Urobilinogen Ur Leukocyte Esterase Urine RBC Urine WBC Urine Bacteria Micro UA Comment Urine Osmolality Ur Random Creatinine Ur Random Sodium Pleural pH Pleural WBC Pleural RBC Pleural Neutrophils Pleural Lymphocytes Pleural Monocytes Pleural Fluid Comment Pleural Total Protein Pleural LDH Pleural Glucose Nasal Screen MRSA (PCR) MRSA NOT DETECTED Random Vancomycin Salicylates Urine Opiates Screen Acetaminophen Ur Barbiturates Screen Ur Amphetamines Screen U Benzodiazepines Scrn Urine Cocaine Screen U Cannabinoids Screen Ethyl Alcohol GARY Screen Hepatitis A IgM Ab Hep Bs Antigen Hep B Core IgM Ab Hep C IgG Ab HIV 1&2 Ab/P24 Ag 4thGn 02/03/18 02/03/18 02/03/18 04:15 04:15 08:18 WBC 3.6 L RBC 4.60 Hgb 13.6 Hct 40.4 MCV 87.9 MCH 29.7 MCHC 33.8 RDW 16.2 Plt Count 61 L MPV 11.5 H Neut % (Auto) Lymph % (Auto) [place] % (Auto) Eos % (Auto) Baso % (Auto) Neut # (Auto) Lymph # (Auto) [place] # (Auto) Eos # (Auto) Baso # (Auto) CBC Comment Total Counted Neutrophils % (Manual) Band Neutrophils % Lymphocytes % Monocytes % Eosinophils % Neutrophils # (Manual) Metamyelocytes Nucleated RBCs Differential Comment Toxic Granulation Toxic Vacuolation Dohle Bodies Platelet Estimate Plt Morphology Comment Target Cells Tear Drop Cells Uriah Cells RBC Morph Comment PT 11.1 INR 1.1 APTT 35.1 H Fibrinogen Puncture Site ART LINE Patient Temperature 98.6 HCO3 16 L* Base Excess -8.3 L O2 Saturation 93 ABG pH 7.38 ABG pCO2 28 L ABG pO2 88 ABG O2 Content 18.2 ABG Carboxyhemoglobin 0.4 ABG Methemoglobin 1.6 Hemoglobin 13.9 O2 Delivery Device VENTILATOR Vent Setting AC22/650/PEEP5 Inspired O2 40 Sodium Potassium Chloride Carbon Dioxide Anion Gap BUN Creatinine Estimated GFR Random Glucose Serum Osmolality Lactic Acid Calcium Prot Corrected Calcium Phosphorus Magnesium Iron TIBC % Saturation Ferritin Total Bilirubin AST ALT Alkaline Phosphatase Ammonia Total Creatine Kinase CK-MB (CK-2) CK-MB (CK-2) % Troponin I Total Protein Albumin Prealbumin Lyszu-3-Wqysidztdyi Amylase Lipase Tumor Marker AFP TSH 3rd Generation Urine Color Urine Turbidity Urine pH Ur Specific [place] Urine Protein Urine Glucose (UA) Urine Ketones Urine Occult Blood Urine Nitrite Urine Bilirubin Urine Urobilinogen Ur Leukocyte Esterase Urine RBC Urine WBC Urine Bacteria Micro UA Comment Urine Osmolality Ur Random Creatinine Ur Random Sodium Pleural pH Pleural WBC Pleural RBC Pleural Neutrophils Pleural Lymphocytes Pleural Monocytes Pleural Fluid Comment Pleural Total Protein Pleural LDH Pleural Glucose Nasal Screen MRSA (PCR) Random Vancomycin Salicylates Urine Opiates Screen Acetaminophen Ur Barbiturates Screen Ur Amphetamines Screen U Benzodiazepines Scrn Urine Cocaine Screen U Cannabinoids Screen Ethyl Alcohol GARY Screen Hepatitis A IgM Ab Hep Bs Antigen Hep B Core IgM Ab Hep C IgG Ab HIV 1&2 Ab/P24 Ag 4thGn 02/03/18 02/03/18 02/03/18 10:45 10:45 10:45 WBC RBC Hgb Hct MCV MCH MCHC RDW Plt Count MPV Neut % (Auto) Lymph % (Auto) [place] % (Auto) Eos % (Auto) Baso % (Auto) Neut # (Auto) Lymph # (Auto) [place] # (Auto) Eos # (Auto) Baso # (Auto) CBC Comment Total Counted Neutrophils % (Manual) Band Neutrophils % Lymphocytes % Monocytes % Eosinophils % Neutrophils # (Manual) Metamyelocytes Nucleated RBCs Differential Comment Toxic Granulation Toxic Vacuolation Dohle Bodies Platelet Estimate Plt Morphology Comment Target Cells Tear Drop Cells [place] Cells RBC Morph Comment PT INR APTT Fibrinogen GREATER THAN 860 H Puncture Site Patient Temperature HCO3 Base Excess O2 Saturation ABG pH ABG pCO2 ABG pO2 ABG O2 Content ABG Carboxyhemoglobin ABG Methemoglobin Hemoglobin O2 Delivery Device Vent Setting Inspired O2 Sodium Potassium Chloride Carbon Dioxide Anion Gap BUN Creatinine Estimated GFR Random Glucose Serum Osmolality Lactic Acid Calcium Prot Corrected Calcium Phosphorus Magnesium Iron TIBC % Saturation Ferritin Total Bilirubin AST ALT Alkaline Phosphatase Ammonia Total Creatine Kinase CK-MB (CK-2) CK-MB (CK-2) % Troponin I Total Protein Albumin Prealbumin Tigyp-6-Bmviasaxfki Amylase Lipase Tumor Marker AFP TSH 3rd Generation Urine Color Urine Turbidity Urine pH Ur Specific [place] Urine Protein Urine Glucose (UA) Urine Ketones Urine Occult Blood Urine Nitrite Urine Bilirubin Urine Urobilinogen Ur Leukocyte Esterase Urine RBC Urine WBC Urine Bacteria Micro UA Comment Urine Osmolality Ur Random Creatinine Ur Random Sodium Pleural pH Pleural WBC Pleural RBC Pleural Neutrophils Pleural Lymphocytes Pleural Monocytes Pleural Fluid Comment Pleural Total Protein Pleural LDH Pleural Glucose Nasal Screen MRSA (PCR) Random Vancomycin Salicylates Urine Opiates Screen Acetaminophen Ur Barbiturates Screen Ur Amphetamines Screen U Benzodiazepines Scrn Urine Cocaine Screen U Cannabinoids Screen Ethyl Alcohol GARY Screen Hepatitis A IgM Ab NONREACTIVE Hep Bs Antigen NONREACTIVE Hep B Core IgM Ab NONREACTIVE Hep C IgG Ab NONREACTIVE HIV 1&2 Ab/P24 Ag 4thGn NONREACTIVE 02/03/18 02/03/18 02/03/18 12:00 12:22 13:45 WBC RBC Hgb Hct MCV MCH MCHC RDW Plt Count MPV Neut % (Auto) Lymph % (Auto) [place] % (Auto) Eos % (Auto) Baso % (Auto) Neut # (Auto) Lymph # (Auto) [place] # (Auto) Eos # (Auto) Baso # (Auto) CBC Comment Total Counted Neutrophils % (Manual) Band Neutrophils % Lymphocytes % Monocytes % Eosinophils % Neutrophils # (Manual) Metamyelocytes Nucleated RBCs Differential Comment Toxic Granulation Toxic Vacuolation Dohle Bodies Platelet Estimate Plt Morphology Comment Target Cells Tear Drop Cells [place] Cells RBC Morph Comment PT INR APTT Fibrinogen Puncture Site Patient Temperature HCO3 Base Excess O2 Saturation ABG pH ABG pCO2 ABG pO2 ABG O2 Content ABG Carboxyhemoglobin ABG Methemoglobin Hemoglobin O2 Delivery Device Vent Setting Inspired O2 Sodium 136 Potassium Chloride Carbon Dioxide Anion Gap BUN Creatinine Estimated GFR Random Glucose Serum Osmolality Lactic Acid 7.8 H* Calcium Prot Corrected Calcium Phosphorus Magnesium Iron TIBC % Saturation Ferritin Total Bilirubin AST ALT Alkaline Phosphatase Ammonia Total Creatine Kinase 2688 H CK-MB (CK-2) 9.5 H CK-MB (CK-2) % 0.4 Troponin I 0.10 H Total Protein Albumin Prealbumin Lqlbk-0-Btksfgbsvtj Amylase Lipase Tumor Marker AFP TSH 3rd Generation Urine Color Urine Turbidity Urine pH Ur Specific [place] Urine Protein Urine Glucose (UA) Urine Ketones Urine Occult Blood Urine Nitrite Urine Bilirubin Urine Urobilinogen Ur Leukocyte Esterase Urine RBC Urine WBC Urine Bacteria Micro UA Comment Urine Osmolality Ur Random Creatinine Ur Random Sodium Pleural pH 7.5 Pleural WBC 05284 H Pleural RBC 07467 H Pleural Neutrophils 82 Pleural Lymphocytes 17 Pleural Monocytes 1 Pleural Fluid Comment Pleural Total Protein Pleural LDH Pleural Glucose Nasal Screen MRSA (PCR) Random Vancomycin Salicylates Urine Opiates Screen Acetaminophen Ur Barbiturates Screen Ur Amphetamines Screen U Benzodiazepines Scrn Urine Cocaine Screen U Cannabinoids Screen Ethyl Alcohol GARY Screen Hepatitis A IgM Ab Hep Bs Antigen Hep B Core IgM Ab Hep C IgG Ab HIV 1&2 Ab/P24 Ag 4thGn 02/03/18 02/03/18 02/03/18 13:45 13:50 15:45 WBC RBC Hgb Hct MCV MCH MCHC RDW Plt Count MPV Neut % (Auto) Lymph % (Auto) [place] % (Auto) Eos % (Auto) Baso % (Auto) Neut # (Auto) Lymph # (Auto) [place] # (Auto) Eos # (Auto) Baso # (Auto) CBC Comment Total Counted Neutrophils % (Manual) Band Neutrophils % Lymphocytes % Monocytes % Eosinophils % Neutrophils # (Manual) Metamyelocytes Nucleated RBCs Differential Comment Toxic Granulation Toxic Vacuolation Dohle Bodies Platelet Estimate Plt Morphology Comment Target Cells Tear Drop Cells [place] Cells RBC Morph Comment PT INR APTT Fibrinogen Puncture Site Patient Temperature HCO3 Base Excess O2 Saturation ABG pH ABG pCO2 ABG pO2 ABG O2 Content ABG Carboxyhemoglobin ABG Methemoglobin Hemoglobin O2 Delivery Device Vent Setting Inspired O2 Sodium 133 L Potassium 4.1 Chloride 92 L Carbon Dioxide 17.4 L Anion Gap 24 H BUN 91 H Creatinine 5.85 H Estimated GFR 10 L Random Glucose 133 H Serum Osmolality Lactic Acid Calcium 6.5 L* Prot Corrected Calcium 7.6 L Phosphorus Magnesium Iron TIBC % Saturation Ferritin Total Bilirubin AST ALT Alkaline Phosphatase Ammonia Total Creatine Kinase CK-MB (CK-2) CK-MB (CK-2) % Troponin I Total Protein 4.9 L Albumin Prealbumin Dkgyy-2-Hdmfixpvynv Amylase Lipase Tumor Marker AFP 0.8 TSH 3rd Generation Urine Color Urine Turbidity Urine pH Ur Specific [place] Urine Protein Urine Glucose (UA) Urine Ketones Urine Occult Blood Urine Nitrite Urine Bilirubin Urine Urobilinogen Ur Leukocyte Esterase Urine RBC Urine WBC Urine Bacteria Micro UA Comment Urine Osmolality Ur Random Creatinine Ur Random Sodium Pleural pH Pleural WBC Pleural RBC Pleural Neutrophils Pleural Lymphocytes Pleural Monocytes Pleural Fluid Comment Pleural Total Protein 4.0 Pleural LDH 3449 Pleural Glucose 4 Nasal Screen MRSA (PCR) Random Vancomycin Salicylates Urine Opiates Screen Acetaminophen Ur Barbiturates Screen Ur Amphetamines Screen U Benzodiazepines Scrn Urine Cocaine Screen U Cannabinoids Screen Ethyl Alcohol GARY Screen Hepatitis A IgM Ab Hep Bs Antigen Hep B Core IgM Ab Hep C IgG Ab HIV 1&2 Ab/P24 Ag 4thGn 02/03/18 02/03/18 02/03/18 15:45 15:45 15:45 WBC RBC Hgb Hct MCV MCH MCHC RDW Plt Count MPV Neut % (Auto) Lymph % (Auto) [place] % (Auto) Eos % (Auto) Baso % (Auto) Neut # (Auto) Lymph # (Auto) [place] # (Auto) Eos # (Auto) Baso # (Auto) CBC Comment Total Counted Neutrophils % (Manual) Band Neutrophils % Lymphocytes % Monocytes % Eosinophils % Neutrophils # (Manual) Metamyelocytes Nucleated RBCs Differential Comment Toxic Granulation Toxic Vacuolation Dohle Bodies Platelet Estimate Plt Morphology Comment Target Cells Tear Drop Cells Logan Cells RBC Morph Comment PT INR APTT Fibrinogen Puncture Site Patient Temperature HCO3 Base Excess O2 Saturation ABG pH ABG pCO2 ABG pO2 ABG O2 Content ABG Carboxyhemoglobin ABG Methemoglobin Hemoglobin O2 Delivery Device Vent Setting Inspired O2 Sodium Potassium Chloride Carbon Dioxide Anion Gap BUN Creatinine Estimated GFR Random Glucose Serum Osmolality Lactic Acid Calcium Prot Corrected Calcium Phosphorus Magnesium Iron TIBC % Saturation Ferritin Total Bilirubin AST ALT Alkaline Phosphatase Ammonia LESS THAN 10 L Total Creatine Kinase CK-MB (CK-2) CK-MB (CK-2) % Troponin I Total Protein Albumin Prealbumin [id number] 433 H Amylase Lipase Tumor Marker AFP TSH 3rd Generation Urine Color Urine Turbidity Urine pH Ur Specific [place] Urine Protein Urine Glucose (UA) Urine Ketones Urine Occult Blood Urine Nitrite Urine Bilirubin Urine Urobilinogen Ur Leukocyte Esterase Urine RBC Urine WBC Urine Bacteria Micro UA Comment Urine Osmolality Ur Random Creatinine Ur Random Sodium Pleural pH Pleural WBC Pleural RBC Pleural Neutrophils Pleural Lymphocytes Pleural Monocytes Pleural Fluid Comment Pleural Total Protein Pleural LDH Pleural Glucose Nasal Screen MRSA (PCR) Random Vancomycin Salicylates Urine Opiates Screen Acetaminophen Ur Barbiturates Screen Ur Amphetamines Screen U Benzodiazepines Scrn Urine Cocaine Screen U Cannabinoids Screen Ethyl Alcohol GARY Screen NEG Hepatitis A IgM Ab Hep Bs Antigen Hep B Core IgM Ab Hep C IgG Ab HIV 1&2 Ab/P24 Ag 4thGn 02/04/18 02/04/18 02/04/18 04:55 04:55 04:55 WBC RBC Hgb Hct MCV MCH MCHC RDW Plt Count MPV Neut % (Auto) Lymph % (Auto) [place] % (Auto) Eos % (Auto) Baso % (Auto) Neut # (Auto) Lymph # (Auto) [place] # (Auto) Eos # (Auto) Baso # (Auto) CBC Comment Total Counted Neutrophils % (Manual) Band Neutrophils % Lymphocytes % Monocytes % Eosinophils % Neutrophils # (Manual) Metamyelocytes Nucleated RBCs Differential Comment Toxic Granulation Toxic Vacuolation Dohle Bodies Platelet Estimate Plt Morphology Comment Target Cells Tear Drop Cells Uriah Cells RBC Morph Comment PT 11.0 INR 1.1 APTT 39.9 H Fibrinogen Puncture Site Patient Temperature HCO3 Base Excess O2 Saturation ABG pH ABG pCO2 ABG pO2 ABG O2 Content ABG Carboxyhemoglobin ABG Methemoglobin Hemoglobin O2 Delivery Device Vent Setting Inspired O2 Sodium 131 L Potassium 4.0 Chloride 86 L Carbon Dioxide 20.4 L Anion Gap 25 H BUN 93 H Creatinine 5.87 H Estimated GFR 10 L Random Glucose 218 H Serum Osmolality Lactic Acid 6.2 H* Calcium 5.9 L* Prot Corrected Calcium 7.2 L* Phosphorus 8.0 H D Magnesium 1.8 Iron 30 L TIBC 126 L % Saturation 23.8 Ferritin 2246 H Total Bilirubin 3.8 H AST 1034 H ALT 184 H Alkaline Phosphatase 89 Ammonia Total Creatine Kinase 3357 H CK-MB (CK-2) 13.8 H CK-MB (CK-2) % 0.4 Troponin I Total Protein 4.4 L Albumin 1.2 L Prealbumin [id number] Amylase 49 Lipase 102 Tumor Marker AFP TSH 3rd Generation Urine Color Urine Turbidity Urine pH Ur Specific [place] Urine Protein Urine Glucose (UA) Urine Ketones Urine Occult Blood Urine Nitrite Urine Bilirubin Urine Urobilinogen Ur Leukocyte Esterase Urine RBC Urine WBC Urine Bacteria Micro UA Comment Urine Osmolality Ur Random Creatinine Ur Random Sodium Pleural pH Pleural WBC Pleural RBC Pleural Neutrophils Pleural Lymphocytes Pleural Monocytes Pleural Fluid Comment Pleural Total Protein Pleural LDH Pleural Glucose Nasal Screen MRSA (PCR) Random Vancomycin 20.4 Salicylates Urine Opiates Screen Acetaminophen Ur Barbiturates Screen Ur Amphetamines Screen U Benzodiazepines Scrn Urine Cocaine Screen U Cannabinoids Screen Ethyl Alcohol GARY Screen Hepatitis A IgM Ab Hep Bs Antigen Hep B Core IgM Ab Hep C IgG Ab HIV 1&2 Ab/P24 Ag 4thGn 02/04/18 02/04/18 02/04/18 04:55 08:10 12:46 WBC 14.4 H RBC 4.09 L Hgb 12.2 L Hct 36.0 L MCV 88.2 MCH 29.8 MCHC 33.8 RDW 16.1 Plt Count 76 L MPV 10.8 Neut % (Auto) 93.9 H Lymph % (Auto) 3.0 L [place] % (Auto) 0.5 Eos % (Auto) 2.0 Baso % (Auto) 0.6 Neut # (Auto) 13.6 H Lymph # (Auto) 0.4 L [place] # (Auto) 0.1 Eos # (Auto) 0.3 Baso # (Auto) 0.1 CBC Comment AUTO DIFF Total Counted 100 Neutrophils % (Manual) 56 Band Neutrophils % 38 H Lymphocytes % Monocytes % 4 Eosinophils % Neutrophils # (Manual) 13.8 H Metamyelocytes 2 H Nucleated RBCs 3 H Differential Comment FINAL DIFF MANUAL Toxic Granulation 1+ H Toxic Vacuolation Dohle Bodies PRESENT H Platelet Estimate LOW L Plt Morphology Comment ENLARGED H Target Cells Tear Drop Cells Logan Cells RBC Morph Comment NORMAL PT INR APTT Fibrinogen Puncture Site ART LINE Patient Temperature 98.6 HCO3 23 Base Excess -0.9 O2 Saturation 95 ABG pH 7.43 H ABG pCO2 36 L ABG pO2 101 ABG O2 Content 15.9 ABG Carboxyhemoglobin 0.6 ABG Methemoglobin 1.6 Hemoglobin 11.9 L O2 Delivery Device VENTILATOR Vent Setting A/C 650/18/5PEEP Inspired O2 40 Sodium 130 L Potassium 3.9 Chloride 84 L Carbon Dioxide 27.1 Anion Gap 19 H BUN 97 H Creatinine 5.78 H Estimated GFR 10 L Random Glucose 193 H Serum Osmolality Lactic Acid Calcium 5.5 L* Prot Corrected Calcium 6.7 L* D Phosphorus Magnesium Iron TIBC % Saturation Ferritin Total Bilirubin AST ALT Alkaline Phosphatase Ammonia Total Creatine Kinase 3765 H CK-MB (CK-2) 12.6 H CK-MB (CK-2) % 0.3 Troponin I Total Protein 4.3 L Albumin Prealbumin Ulkqj-7-Gdacognaxti Amylase Lipase Tumor Marker AFP TSH 3rd Generation Urine Color Urine Turbidity Urine pH Ur Specific [place] Urine Protein Urine Glucose (UA) Urine Ketones Urine Occult Blood Urine Nitrite Urine Bilirubin Urine Urobilinogen Ur Leukocyte Esterase Urine RBC Urine WBC Urine Bacteria Micro UA Comment Urine Osmolality Ur Random Creatinine Ur Random Sodium Pleural pH Pleural WBC Pleural RBC Pleural Neutrophils Pleural Lymphocytes Pleural Monocytes Pleural Fluid Comment Pleural Total Protein Pleural LDH Pleural Glucose Nasal Screen MRSA (PCR) Random Vancomycin Salicylates Urine Opiates Screen Acetaminophen Ur Barbiturates Screen Ur Amphetamines Screen U Benzodiazepines Scrn Urine Cocaine Screen U Cannabinoids Screen Ethyl Alcohol GARY Screen Hepatitis A IgM Ab Hep Bs Antigen Hep B Core IgM Ab Hep C IgG Ab HIV 1&2 Ab/P24 Ag 4thGn 02/04/18 02/05/18 02/05/18 16:30 01:30 01:30 WBC RBC Hgb Hct MCV MCH MCHC RDW Plt Count MPV Neut % (Auto) Lymph % (Auto) [place] % (Auto) Eos % (Auto) Baso % (Auto) Neut # (Auto) Lymph # (Auto) [place] # (Auto) Eos # (Auto) Baso # (Auto) CBC Comment Total Counted Neutrophils % (Manual) Band Neutrophils % Lymphocytes % Monocytes % Eosinophils % Neutrophils # (Manual) Metamyelocytes Nucleated RBCs Differential Comment Toxic Granulation Toxic Vacuolation Dohle Bodies Platelet Estimate Plt Morphology Comment Target Cells Tear Drop Cells Uriah Cells RBC Morph Comment PT INR APTT 37.5 H Fibrinogen Puncture Site Patient Temperature HCO3 Base Excess O2 Saturation ABG pH ABG pCO2 ABG pO2 ABG O2 Content ABG Carboxyhemoglobin ABG Methemoglobin Hemoglobin O2 Delivery Device Vent Setting Inspired O2 Sodium Cancelled 130 L Potassium Cancelled 3.5 Chloride Cancelled 86 L Carbon Dioxide Cancelled 29.1 Anion Gap Cancelled 15 BUN Cancelled 83 H D Creatinine Cancelled 4.35 H D Estimated GFR Cancelled 14 L Random Glucose Cancelled 180 H Serum Osmolality Lactic Acid Calcium Cancelled 5.1 L* Prot Corrected Calcium 6.2 L* D Phosphorus 4.7 D Magnesium 1.6 Iron TIBC % Saturation Ferritin Total Bilirubin 4.2 H AST 729 H ALT 145 H Alkaline Phosphatase 125 H Ammonia Total Creatine Kinase CK-MB (CK-2) CK-MB (CK-2) % Troponin I Total Protein 4.4 L Albumin 1.2 L Prealbumin Gtumq-1-Uyhfcquumvh Amylase Lipase Tumor Marker AFP TSH 3rd Generation Urine Color Urine Turbidity Urine pH Ur Specific [place] Urine Protein Urine Glucose (UA) Urine Ketones Urine Occult Blood Urine Nitrite Urine Bilirubin Urine Urobilinogen Ur Leukocyte Esterase Urine RBC Urine WBC Urine Bacteria Micro UA Comment Urine Osmolality Ur Random Creatinine Ur Random Sodium Pleural pH Pleural WBC Pleural RBC Pleural Neutrophils Pleural Lymphocytes Pleural Monocytes Pleural Fluid Comment Pleural Total Protein Pleural LDH Pleural Glucose Nasal Screen MRSA (PCR) Random Vancomycin Salicylates Urine Opiates Screen Acetaminophen Ur Barbiturates Screen Ur Amphetamines Screen U Benzodiazepines Scrn Urine Cocaine Screen U Cannabinoids Screen Ethyl Alcohol GARY Screen Hepatitis A IgM Ab Hep Bs Antigen Hep B Core IgM Ab Hep C IgG Ab HIV 1&2 Ab/P24 Ag 4thGn 02/05/18 02/05/18 02/05/18 01:30 01:30 01:30 WBC 18.0 H RBC 3.98 L Hgb 12.0 L Hct 34.5 L MCV 86.7 MCH 30.2 MCHC 34.8 RDW 16.8 Plt Count 69 L MPV 11.3 H Neut % (Auto) Lymph % (Auto) [place] % (Auto) Eos % (Auto) Baso % (Auto) Neut # (Auto) Lymph # (Auto) [place] # (Auto) Eos # (Auto) Baso # (Auto) CBC Comment AUTO DIFF Total Counted 100 Neutrophils % (Manual) 71 H Band Neutrophils % 20 H Lymphocytes % 1 L Monocytes % 3 Eosinophils % Neutrophils # (Manual) 17.3 H Metamyelocytes 5 H Nucleated RBCs Differential Comment FINAL DIFF MANUAL Toxic Granulation 1+ H Toxic Vacuolation PRESENT H Dohle Bodies PRESENT H Platelet Estimate LOW L Plt Morphology Comment ENLARGED H Target Cells 1+ H Tear Drop Cells 3+ H Logan Cells RBC Morph Comment PT 10.4 INR 1.0 APTT 38.6 H Fibrinogen Puncture Site Patient Temperature HCO3 Base Excess O2 Saturation ABG pH ABG pCO2 ABG pO2 ABG O2 Content ABG Carboxyhemoglobin ABG Methemoglobin Hemoglobin O2 Delivery Device Vent Setting Inspired O2 Sodium Potassium Chloride Carbon Dioxide Anion Gap BUN Creatinine Estimated GFR Random Glucose Serum Osmolality Lactic Acid 3.2 H Calcium Prot Corrected Calcium Phosphorus Magnesium Iron TIBC % Saturation Ferritin Total Bilirubin AST ALT Alkaline Phosphatase Ammonia Total Creatine Kinase CK-MB (CK-2) CK-MB (CK-2) % Troponin I Total Protein Albumin Prealbumin Hgatw-7-Bzbvaolcnzo Amylase Lipase Tumor Marker AFP TSH 3rd Generation Urine Color Urine Turbidity Urine pH Ur Specific [place] Urine Protein Urine Glucose (UA) Urine Ketones Urine Occult Blood Urine Nitrite Urine Bilirubin Urine Urobilinogen Ur Leukocyte Esterase Urine RBC Urine WBC Urine Bacteria Micro UA Comment Urine Osmolality Ur Random Creatinine Ur Random Sodium Pleural pH Pleural WBC Pleural RBC Pleural Neutrophils Pleural Lymphocytes Pleural Monocytes Pleural Fluid Comment Pleural Total Protein Pleural LDH Pleural Glucose Nasal Screen MRSA (PCR) Random Vancomycin Salicylates Urine Opiates Screen Acetaminophen Ur Barbiturates Screen Ur Amphetamines Screen U Benzodiazepines Scrn Urine Cocaine Screen U Cannabinoids Screen Ethyl Alcohol GARY Screen Hepatitis A IgM Ab Hep Bs Antigen Hep B Core IgM Ab Hep C IgG Ab HIV 1&2 Ab/P24 Ag 4thGn 02/05/18 02/06/18 02/06/18 21:00 03:40 03:40 WBC 24.5 H RBC 3.97 L Hgb 11.7 L Hct 35.0 L MCV 88.1 MCH 29.3 MCHC 33.3 RDW 17.0 Plt Count 66 L MPV 11.0 Neut % (Auto) Lymph % (Auto) [place] % (Auto) Eos % (Auto) Baso % (Auto) Neut # (Auto) Lymph # (Auto) [place] # (Auto) Eos # (Auto) Baso # (Auto) CBC Comment Total Counted Neutrophils % (Manual) Band Neutrophils % Lymphocytes % Monocytes % Eosinophils % Neutrophils # (Manual) Metamyelocytes Nucleated RBCs Differential Comment Toxic Granulation Toxic Vacuolation Dohle Bodies Platelet Estimate Plt Morphology Comment Target Cells Tear Drop Cells Uriah Cells RBC Morph Comment PT 10.7 INR 1.1 APTT 34.5 H Fibrinogen 681 H Puncture Site Patient Temperature HCO3 Base Excess O2 Saturation ABG pH ABG pCO2 ABG pO2 ABG O2 Content ABG Carboxyhemoglobin ABG Methemoglobin Hemoglobin O2 Delivery Device Vent Setting Inspired O2 Sodium 133 L Potassium 3.7 Chloride 89 L Carbon Dioxide 23.6 Anion Gap 20 H BUN 57 H D Creatinine 2.98 H D Estimated GFR 22 L Random Glucose 187 H Serum Osmolality Lactic Acid Calcium LESS THAN 5.0 L* Prot Corrected Calcium Phosphorus Magnesium Iron TIBC % Saturation Ferritin Total Bilirubin AST ALT Alkaline Phosphatase Ammonia Total Creatine Kinase CK-MB (CK-2) CK-MB (CK-2) % Troponin I Total Protein Albumin Prealbumin Tcloe-8-Ycdyszuelya Amylase Lipase Tumor Marker AFP TSH 3rd Generation Urine Color Urine Turbidity Urine pH Ur Specific [place] Urine Protein Urine Glucose (UA) Urine Ketones Urine Occult Blood Urine Nitrite Urine Bilirubin Urine Urobilinogen Ur Leukocyte Esterase Urine RBC Urine WBC Urine Bacteria Micro UA Comment Urine Osmolality Ur Random Creatinine Ur Random Sodium Pleural pH Pleural WBC Pleural RBC Pleural Neutrophils Pleural Lymphocytes Pleural Monocytes Pleural Fluid Comment Pleural Total Protein Pleural LDH Pleural Glucose Nasal Screen MRSA (PCR) Random Vancomycin Salicylates Urine Opiates Screen Acetaminophen Ur Barbiturates Screen Ur Amphetamines Screen U Benzodiazepines Scrn Urine Cocaine Screen U Cannabinoids Screen Ethyl Alcohol GARY Screen Hepatitis A IgM Ab Hep Bs Antigen Hep B Core IgM Ab Hep C IgG Ab HIV 1&2 Ab/P24 Ag 4thGn 02/06/18 02/06/18 03:40 08:00 WBC RBC Hgb Hct MCV MCH MCHC RDW Plt Count MPV Neut % (Auto) Lymph % (Auto) [place] % (Auto) Eos % (Auto) Baso % (Auto) Neut # (Auto) Lymph # (Auto) [place] # (Auto) Eos # (Auto) Baso # (Auto) CBC Comment Total Counted Neutrophils % (Manual) Band Neutrophils % Lymphocytes % Monocytes % Eosinophils % Neutrophils # (Manual) Metamyelocytes Nucleated RBCs Differential Comment Toxic Granulation Toxic Vacuolation Dohle Bodies Platelet Estimate Plt Morphology Comment Target Cells Tear Drop Cells [place] Cells RBC Morph Comment PT INR APTT Fibrinogen Puncture Site Patient Temperature HCO3 Base Excess O2 Saturation ABG pH ABG pCO2 ABG pO2 ABG O2 Content ABG Carboxyhemoglobin ABG Methemoglobin Hemoglobin O2 Delivery Device Vent Setting Inspired O2 Sodium 134 L 132 L Potassium 3.6 4.0 Chloride 91 L 90 L Carbon Dioxide 22.6 24.1 Anion Gap 20 H 18 H BUN 62 H 67 H Creatinine 3.45 H 3.79 H Estimated GFR 19 L 17 L Random Glucose 205 H 229 H Serum Osmolality Lactic Acid Calcium 6.2 L* 6.2 L* Prot Corrected Calcium 7.4 L* Phosphorus 4.4 Magnesium 1.8 Iron TIBC % Saturation Ferritin Total Bilirubin 4.6 H AST 486 H ALT 118 H Alkaline Phosphatase 163 H Ammonia Total Creatine Kinase CK-MB (CK-2) CK-MB (CK-2) % Troponin I Total Protein 4.6 L Albumin 1.1 L Prealbumin 4 L Wiodc-2-Ainawfgniur Amylase Lipase Tumor Marker AFP TSH 3rd Generation Urine Color Urine Turbidity Urine pH Ur Specific [place] Urine Protein Urine Glucose (UA) Urine Ketones Urine Occult Blood Urine Nitrite Urine Bilirubin Urine Urobilinogen Ur Leukocyte Esterase Urine RBC Urine WBC Urine Bacteria Micro UA Comment Urine Osmolality Ur Random Creatinine Ur Random Sodium Pleural pH Pleural WBC Pleural RBC Pleural Neutrophils Pleural Lymphocytes Pleural Monocytes Pleural Fluid Comment Pleural Total Protein Pleural LDH Pleural Glucose Nasal Screen MRSA (PCR) Random Vancomycin Salicylates Urine Opiates Screen Acetaminophen Ur Barbiturates Screen Ur Amphetamines Screen U Benzodiazepines Scrn Urine Cocaine Screen U Cannabinoids Screen Ethyl Alcohol GARY Screen Hepatitis A IgM Ab Hep Bs Antigen Hep B Core IgM Ab Hep C IgG Ab HIV 1&2 Ab/P24 Ag 4thGn Assessment and Plan - Assessment (1) Acute renal failure (ARF) Code(s): N17.9 - Acute kidney failure, unspecified Status: Acute (2) Sepsis Code(s): A41.9 - Sepsis, unspecified organism Status: Acute (3) Respiratory failure Code(s): J96.90 - Respiratory failure, unspecified, unspecified whether with hypoxia or hypercapnia Status: Acute (4) Hypotension Code(s): I95.9 - Hypotension, unspecified Status: Acute - Plan (1) Acute renal failure ICD Codes: N17.9 - Acute kidney failure, unspecified Plan: Patient has no urine output Cr higher CRRT started on 02/04. BP low normal off vasopressor Large pleural effusion was drained He has gram-negative in sputum Ceftaroline/Zerbaxa ID following CRRT clotted last night at 8 pm. Now BP is better, will try conventional HD today. BP is better, on pressors. (2) Sepsis ICD Codes: A41.9 - Sepsis, unspecified organism Plan: ID following (3) Rhabdomyolysis ICD Codes: M62.82 - Rhabdomyolysis Plan: On bicarbonate drip (4) UTI (lower urinary tract infection) ICD Codes: N39.0 - Urinary tract infection, site not specified Plan: Patient has staph infection and ID is following (5) Pneumonia ICD Codes: J18.9 - Pneumonia, unspecified organism Plan: Pleural effusion drained
[2018-02-06 11:34] LABS: Calcium-Albumin Corrected 7.5 mg/dL (8.5-10.1); Total Protein 4.4 g/dL (6.4-8.2)
--- NOTE | 2018-02-06 11:34 | P.PNCC ---
Subjective Subjective Remarks/Hospital Course: 02/05: This is a 57-year-old male with a strong history of EtOH abuse, his family states that he drinks greater than a pint today times at least 25 years. He was found unresponsive at home this afternoon. The last time he was seen normal was 5 days ago. He was brought in by EMS and was severely altered. He was intubated for acute hypoxemia and hypercarbia. He was also in a supraventricular tachycardia with a heart rate greater than 200. In the emergency department he was electrically cardioverted 2 without success, and given 5 mill grams of IV Lopressor which caused severe hypotension, but did not resolve his tachycardia. Immediately upon being notified went down to the emergency department evaluated the patient and transported him up to the intensive care unit. Once in the intensive care unit, I placed arterial and central lines, see separate procedure note for details. I loaded the patient with 150 mg of amiodarone and 2 g magnesium. In addition, the patient has a blood gas with severe metabolic acidosis and a pH less than 7.2. I gave 4 A of sodium bicarbonate as well as 1 g of calcium chloride for severe hypocalcemia. After these interventions, the patient spontaneously converted to a sinus tachycardia. The patient was placed on norepinephrine for persistent hypotension and shock. The emergency department attempted to place a 16 [place]divian Ennis catheter and was unsuccessful with this. I attempted an additional time to place both an 18 Maldivian coud catheter as well as a 24 Maldivian three-way catheter, both which were unsuccessful and met significant resistance at approximately 10-12 cm. I consulted urology and discussed the case with Dr. Worley who agrees to Place Ennis catheter tonight for emergent urine output monitoring while in shock. The patient remains altered no additional information is available from patient. ROS is unobtainable. 02/03 Patient is intubated on Levoped 5 mics, Amio and bicarb drips. 16Fr catheter was placed by Urology. 02/04 Patient remains intubated and sedated with Diprivan. Off Levophed on Neosyn 60mics. Right sided pig tail catheter placed yesterday with removal 1100ml cloudy fluid fluid analysis c/w empyema. Renal function declining with Cr: 5.87 and UOP 120ml in 12 hrs. Tmax 102.2 02/05: remains intubated and critically ill. on CVVHD. per RN, net -300/hr on CVVHD. off vasopressors this AM. 02/06: Remains sedated, orally intubated on mechanical ventilation. CRRT clotted off last night. Nephrology planning HD Objective Vital Signs / I&O: Vital Signs 02/06/18 00:05 02/06/18 01:00 02/06/18 02:00 Temperature Pulse Rate 166 H 102 H 108 H Respiratory Rate 18 18 18 Blood Pressure 101/55 L 93/53 L Pulse Oximetry 93 L 93 L 93 L 02/06/18 03:00 02/06/18 03:03 02/06/18 03:24 Temperature Pulse Rate 104 H 107 H Respiratory Rate 18 18 18 Blood Pressure 99/57 L 82/60 L Pulse Oximetry 93 L 94 L 95 02/06/18 04:00 02/06/18 05:00 02/06/18 06:00 Temperature Pulse Rate 107 H 104 H 101 H Respiratory Rate 2 L 14 6 L Blood Pressure 110/57 L 106/57 L 105/64 Pulse Oximetry 93 L 93 L 94 L 02/06/18 07:00 02/06/18 08:00 02/06/18 08:36 Temperature 100.1 F H Pulse Rate 103 H 105 H 103 H Respiratory Rate 19 18 Blood Pressure 100/57 L Pulse Oximetry 100 94 L 02/06/18 08:43 Temperature Pulse Rate 103 H Respiratory Rate 18 Blood Pressure 98/55 L Pulse Oximetry 94 L Intake & Output 02/05/18 02/06/18 02/06/18 18:59 06:59 18:59 Intake Total 520 / 520 100 / 100 Output Total 270 / 270 Balance 250 / 250 100 / 100 Weight 101 kg Intake: IV 520 / 520 100 / 100 Calcium Chloride Inj 2 GM In NS 120 / 120 Inj 100 ML @ 120 mls/hr IV.SIG ONCE ONE Rx#:[id number] Teflaro Inj 300 MG In NS Inj 100 / 100 100 ML @ 100 mls/hr IV.SIG Q12HR LEROY Rx#:[id number] Zerbaxa Inj 375 MG In NS Inj 100 / 100 100 ML @ 100 mls/hr IV.SIG Q8HR LEROY Rx#:[id number] Magnesium Sulfate 1 gm/D5W 100 100 / 100 ml Premix 100 ML @ 100 mls/hr IV.SIG ONCE ONE Rx#:[id number] Flagyl 500 MG Inj 100 ML @ 100 200 / 200 mls/hr IV.SIG Q6H LEROY Rx#: [id number] Output: Urine 30 / 30 Gastric Drainage 230 / 230 Orogastric Tube 230 / 230 Chest Tube Drainage #1 Right Anterior Result Diagrams: 02/06/18 03:40 02/06/18 08:00 Imaging: Last Impressions Chest X-Ray 02/03/18 Signed Impressions: CONCLUSION: Interval right chest pigtail thoracostomy tube placement with significant impro vement in aeration. Chest CT 02/03/18 0000 Signed Impressions: CONCLUSION: 1. There is a large right pleural effusion which extends up to the lateral ape x, measures in excess of 5 cm in width and with possible loculation. 2. Consolidation and volume loss in the right lower and right middle lobe. 3. Patchy areas of infiltrate scattered throughout the left lung, subsegmental . Abdomen/Pelvis CT 02/03/18 Signed Impressions: CONCLUSION: 1. Moderate-sized right pleural effusion. 2. Two calcifications in the expected region of the distal common bile duct or pancreatic head measuring 3 mm each. Correlation with alkaline phosphatase and bilirubin levels is suggested to rule out biliary obstruction. 3. Bibasilar atelectasis and/or infiltrates which are slightly worse on the ri ght than the left. 4. Cardiomegaly. 5. Left adrenal nodule measuring 2.6 x 2.3 cm consistent with probable adrenal adenoma or cyst. 6. Small amount of ascites. 7. Probable 2.3 cm right renal cyst. Head CT 02/02/18 1614 Signed Impressions: CONCLUSION: Negative noncontrasted CT examination. Renal Ultrasound 02/02/18 Signed Impressions: CONCLUSION: 1. Right renal cyst. 2. Small right pleural effusion. 3. No hydronephrosis. Lines: 02/02 left subclavian triple lumen catheter 02/02 left radial arterial line 02/03 Right pigtail catheter placement 02/04 Right IJ vascath placement Objective Remarks: Objective Remarks GENERAL: Patient is 57 yo intubated. SKIN: Warm and dry. HEAD: Normocephalic. EYES: No scleral icterus. No injection or drainage. NECK: Supple, trachea midline. No JVD. CARDIOVASCULAR: Regular rate and rhythm. sinus. HR 62. RESPIRATORY: Breath sounds equal bilaterally. No accessory muscle use. GASTROINTESTINAL: Abdomen soft, non-tender, nondistended. MUSCULOSKELETAL: No cyanosis, or edema. Neuro: Intubated Assessment and Plan - Assessment and Plan Plan: A/P Assessment and Plan Assessment: 57-year-old male with strong EtOH history found unresponsive at home who has severe metabolic derangements, multiorgan system dysfunction, acute rhabdomyolysis, and acute shock, likely combination of hypovolemic and septic, present on admission. Likely sources would be aspiration pneumonia or urinary tract infection. Remains very critically ill. Plan by systems: Neurologic: Acute metabolic encephalopathy etoh abuse Likely secondary to EtOH abuse Monitor neuro status, on Thiamine/MVI/ On Diprivan infusion for sedation. Daily sedation vacation when appropriate CT brain : No acute process on 02/02 Respiratory: Acute hypoxic and hypercarbic respiratory failure Right sided empyema Continue with vent support keep sats >92% Bronchodilates, ICU vent bundle. Check ABG s/p right pigtail catheter placement 02/03 Pleural fluid analysis c/w empyema. Follow up on fluid cxs and monitor CT drainage. CXR post CT placement showed significant improvement on right. Cardiovascular: Mixed hypovolemic and septic shock Atrial fibrillation with rapid ventricular response Larry-Synephrine for pressor support. Monitor HR and BP keep MAP>65mmHg Status post 5 L crystalloid resuscitation in the emergency department Serial lactic acid monitoring till clear. Continue with bicarb drip. Echo showed EF 60-65%, no RWMA Renal: Acute kidney injury-severe Acute rhabdomyolysis Obstructive uropathy BPH Monitor renal function, I/O's, avoid nephrotoxins Continue with bicarb drip ( SW+ 3amps bicarb), monitor CK's Urology is following- s/p 16Fr Ennis catheter placement Renal is following- Dr. Dinh. Was on CRRT which clotted off on 02/05. Nephrology planning HD FEN/GI: Elevated LFT's with hyperbilirubinemia Acute protein calorie malnutrition: S orogastric tube to low intermittent wall suction GI is following discussed with GI for perc cholecystostomy tube placement today Ammonia level <10 on 02/02 Hepatitis profile: Non reactive, Heme/ID: Coagulopathy, probably secondary to end-stage liver disease Thrombocytopenia, secondary to shock Leukopenia, secondary septic shock On Zerbaxa, Teflaro, Flagyl per ID Monitor for signs of infections ( Fever, WBC) follow up on cultures from 02/02 02/02 Sputum cx: GNR 02/02 Urine cx: Staph Aureus 02/03 BC: GPC 08/12 bottles 02/03 Fluid cx: NGTD HIV ab: non reactive Monitor CBC, coags Endocrine: Hyperglycemia of critical illness -- SSI, TSH 1.6 Prophylaxis: GI Prophylaxis Protonix IV DVT Prophylaxis -- SCDs - Subcu heparin on hold for thrombocytopenia Condition critical Time spent on critical care excluding procedures 40 minutes
[2018-02-06] MEDS ORDERED: Insulin NovoLIN Regular Correctional Sugar Inj SQ SCH ×2 (12:00)
[2018-02-06] MEDS: Insulin NovoLIN Regular Correctional Sugar Inj SQ SCH ×2 (12:24→17:22)
[2018-02-06] MEDS ORDERED: Gelatin 12 MM/7 MM Topical Foam TOPICAL PRN (13:57)
[2018-02-06] MEDS ORDERED: Sod Chloride 0.9% Inj 1,000 ML IV.CONT PRN (13:57)
[2018-02-06] MEDS ORDERED: Sod Chloride 0.9% Inj 1,000 ML OTHER PRN (13:57)
[2018-02-06 14:34] LABS: Potassium 3.4 meq/L (3.5-5.1)
[2018-02-06 14:35] LABS: Calcium 5.2 mg/dL (8.5-10.1); Carbon Dioxide 20.5 meq/L (21.0-32.0)
[2018-02-06 14:56] LABS: Total Protein 3.6 g/dL (6.4-8.2)
[2018-02-06 15:16] LABS: Calcium-Albumin Corrected 6.7 mg/dL (8.5-10.1)
--- NOTE | 2018-02-06 15:32 | P.PNGI ---
Subjective Interval history: Patient is being managed in the intensive care unit intubated FiO2 40% and continues to be critically ill. Positive for pressures Now receiving regular dialysis today Orogastric tube in place Current hemoglobin 11.7, WBC count 24.5 PT/INR 1.1 <Brittany Willard - Last Filed: 02/06/18 15:14> Physical Exam Vital signs: Vital Signs 02/06/18 00:05 02/06/18 01:00 02/06/18 02:00 Temperature Pulse Rate 166 H 102 H 108 H Respiratory Rate 18 18 18 Blood Pressure 101/55 L 93/53 L Pulse Oximetry 93 L 93 L 93 L 02/06/18 03:00 02/06/18 03:03 02/06/18 03:24 Temperature Pulse Rate 104 H 107 H Respiratory Rate 18 18 18 Blood Pressure 99/57 L 82/60 L Pulse Oximetry 93 L 94 L 95 02/06/18 04:00 02/06/18 05:00 02/06/18 06:00 Temperature Pulse Rate 107 H 104 H 101 H Respiratory Rate 2 L 14 6 L Blood Pressure 110/57 L 106/57 L 105/64 Pulse Oximetry 93 L 93 L 94 L 02/06/18 07:00 02/06/18 08:00 02/06/18 08:36 Temperature 100.1 F H Pulse Rate 101 H 103 H 103 H Respiratory Rate 11 L 18 18 Blood Pressure 127/59 L 120/64 Pulse Oximetry 94 L 94 L 94 L 02/06/18 08:43 02/06/18 09:00 02/06/18 10:00 Temperature Pulse Rate 103 H 104 H 107 H Respiratory Rate 18 18 18 Blood Pressure 98/55 L 116/59 L 114/61 Pulse Oximetry 94 L 93 L 94 L 02/06/18 11:00 02/06/18 12:00 02/06/18 12:12 Temperature Pulse Rate 107 H 109 H Respiratory Rate 13 18 18 Blood Pressure 109/59 L 110/61 Pulse Oximetry 93 L 94 L Intake & Output 02/05/18 02/06/18 02/06/18 18:59 06:59 18:59 Intake Total 520 / 520 1050 / 1050 Output Total 270 / 270 Balance 250 / 250 1050 / 1050 Weight 101 kg Intake: IV 520 / 520 1050 / 1050 Neosynephrine Inj 40 MG In D5W 500 / 500 Inj 496 ML @ 40 MCG/MIN 30 mls/ hr IV.CONT TITRATE PRN Rx#: [id number] fentaNYL 10 mcg/mL Premix Drip 250 / 250 2,500 mcg In 250 ml @ 50 MCG/HR 5 mls/hr IV.CONT TITRATE PRN Rx#:[id number] Calcium Chloride Inj 2 GM In NS 120 / 120 Inj 100 ML @ 120 mls/hr IV.SIG ONCE ONE Rx#:[id number] Teflaro Inj 300 MG In NS Inj 100 / 100 100 ML @ 100 mls/hr IV.SIG Q12HR LEROY Rx#:[id number] Zerbaxa Inj 375 MG In NS Inj 100 / 100 100 ML @ 100 mls/hr IV.SIG Q8HR LEROY Rx#:[id number] Magnesium Sulfate 1 gm/D5W 100 100 / 100 ml Premix 100 ML @ 100 mls/hr IV.SIG ONCE ONE Rx#:[id number] KCl 20 mEq Premix Inj 20 meq In 100 / 100 100 ml @ 50 mls/hr IV.SIG ONCE ONE Rx#:[id number] Flagyl 500 MG Inj 100 ML @ 100 200 / 200 100 / 100 mls/hr IV.SIG Q6H LEROY Rx#: [id number] Output: Urine 30 / 30 Gastric Drainage 230 / 230 Orogastric Tube 230 / 230 Chest Tube Drainage 10 / 10 #1 Right Anterior 10 / 10 - Constitutional obtunded Comments: Patient is intubated with 40% FiO2 OGT tube - Routine HEENT Exam Head: Present: normocephalic, atraumatic Eye: Present: EOMI (Eyes are closed) ENT: Present: mucous membranes moist - Routine Neck Exam Present: supple - Routine Respiratory Exam Present: patient mechanically ventilated, decreased breath sounds - Routine Cardiovascular Exam Present: tachycardia (Currently sinus tach with PACs heart rate 113) - Routine Abdominal Exam Present: normoactive bowel sounds (Minimal soft, abdomen taut, ) - Routine Extremities Exam Present: edema (Minimal no obvious extremity movement for now) - Detailed Neurological Exam: Coma Scale Eye Opening: None Verbal Response: None Motor Response: None Rona Coma Scale Total: 3 - Urinary Catheter Management Coude Cath placed during this visit: yes Insertion date: 02/02/18 <Brittany Willard - Last Filed: 02/06/18 15:14> Vital signs: Vital Signs 07/01/18 00:05 02/06/18 01:00 02/06/18 02:00 Temperature Pulse Rate 166 H 102 H 108 H Respiratory Rate 18 18 18 Blood Pressure 101/55 L 93/53 L Pulse Oximetry 93 L 93 L 93 L 02/06/18 03:00 02/06/18 03:03 02/06/18 03:24 Temperature Pulse Rate 104 H 107 H Respiratory Rate 18 18 18 Blood Pressure 99/57 L 82/60 L Pulse Oximetry 93 L 94 L 95 02/06/18 04:00 02/06/18 05:00 02/06/18 06:00 Temperature Pulse Rate 107 H 104 H 101 H Respiratory Rate 2 L 14 6 L Blood Pressure 110/57 L 106/57 L 105/64 Pulse Oximetry 93 L 93 L 94 L 02/06/18 07:00 02/06/18 08:00 02/06/18 08:36 Temperature 100.1 F H Pulse Rate 101 H 103 H 103 H Respiratory Rate 11 L 18 18 Blood Pressure 127/59 L 120/64 Pulse Oximetry 94 L 94 L 94 L 02/06/18 08:43 02/06/18 09:00 02/06/18 10:00 Temperature Pulse Rate 103 H 104 H 107 H Respiratory Rate 18 18 18 Blood Pressure 98/55 L 116/59 L 114/61 Pulse Oximetry 94 L 93 L 94 L 02/06/18 11:00 02/06/18 12:00 02/06/18 12:12 Temperature Pulse Rate 107 H 109 H Respiratory Rate 13 18 18 Blood Pressure 109/59 L 110/61 Pulse Oximetry 93 L 94 L 02/06/18 16:02 02/06/18 16:04 Temperature Pulse Rate 108 H Respiratory Rate 18 18 Blood Pressure Pulse Oximetry Intake & Output 02/05/18 02/06/18 02/06/18 18:59 06:59 18:59 Intake Total 520 / 520 1550 / 1550 Output Total 270 / 270 2500 / 2500 Balance 250 / 250 -950 / -950 Weight 101 kg Intake: IV 520 / 520 1550 / 1550 Neosynephrine Inj 40 MG In D5W 1000 / 1000 Inj 496 ML @ 40 MCG/MIN 30 mls/ hr IV.CONT TITRATE PRN Rx#: [id number] fentaNYL 10 mcg/mL Premix Drip 250 / 250 2,500 mcg In 250 ml @ 50 MCG/HR 5 mls/hr IV.CONT TITRATE PRN Rx#:[id number] Calcium Chloride Inj 2 GM In NS 120 / 120 Inj 100 ML @ 120 mls/hr IV.SIG ONCE ONE Rx#:[id number] Teflaro Inj 300 MG In NS Inj 100 / 100 100 ML @ 100 mls/hr IV.SIG Q12HR LEROY Rx#:[id number] Zerbaxa Inj 375 MG In NS Inj 100 / 100 100 ML @ 100 mls/hr IV.SIG Q8HR LEROY Rx#:[id number] Magnesium Sulfate 1 gm/D5W 100 100 / 100 ml Premix 100 ML @ 100 mls/hr IV.SIG ONCE ONE Rx#:[id number] KCl 20 mEq Premix Inj 20 meq In 100 / 100 100 ml @ 50 mls/hr IV.SIG ONCE ONE Rx#:[id number] Flagyl 500 MG Inj 100 ML @ 100 200 / 200 100 / 100 mls/hr IV.SIG Q6H LEROY Rx#: [id number] Output: Urine 30 / 30 Hemodialysis Amount 2500 / 2500 Gastric Drainage 230 / 230 Orogastric Tube 230 / 230 Chest Tube Drainage #1 Right Anterior - Urinary Catheter Management Coude Cath placed during this visit: no <Olena Reed - Last Filed: 02/06/18 16:59> Results - Labs CBC & Chem 7: 02/06/18 03:40 02/06/18 12:50 Labs: Laboratory Results - last 24 hr 02/02/18 02/02/18 02/02/18 16:22 16:22 16:22 WBC RBC Hgb Hct MCV MCH MCHC RDW Plt Count MPV Neut % (Auto) Lymph % (Auto) [place] % (Auto) Eos % (Auto) Baso % (Auto) Neut # (Auto) Lymph # (Auto) [place] # (Auto) Eos # (Auto) Baso # (Auto) CBC Comment Total Counted Neutrophils % (Manual) Band Neutrophils % Lymphocytes % Monocytes % Eosinophils % Neutrophils # (Manual) Metamyelocytes Nucleated RBCs Differential Comment Toxic Granulation Toxic Vacuolation Dohle Bodies Platelet Estimate Plt Morphology Comment Target Cells Tear Drop Cells [place] Cells RBC Morph Comment PT INR APTT Fibrinogen Puncture Site Patient Temperature HCO3 Base Excess O2 Saturation ABG pH ABG pCO2 ABG pO2 ABG O2 Content ABG Carboxyhemoglobin ABG Methemoglobin Hemoglobin O2 Delivery Device Vent Setting Inspired O2 Sodium 133 L Potassium 3.4 L Chloride 96 L Carbon Dioxide 10.9 L Anion Gap 26 H BUN 81 H Creatinine 5.71 H Estimated GFR 10 L POC Glucose Random Glucose 142 H Serum Osmolality Lactic Acid Calcium 5.8 L* Prot Corrected Calcium 6.5 L* Phosphorus Magnesium Iron TIBC % Saturation Ferritin Total Bilirubin 1.7 H AST 1685 H ALT 307 H Alkaline Phosphatase 66 Ammonia LESS THAN 10 L Total Creatine Kinase 1286 H CK-MB (CK-2) 8.6 H CK-MB (CK-2) % 0.7 Troponin I 0.03 Total Protein 5.4 L D Albumin 1.8 L Prealbumin Fexay-0-Vbyrrbprrfu Amylase Lipase Tumor Marker AFP TSH 3rd Generation 1.610 Urine Color Urine Turbidity Urine pH Ur Specific [place] Urine Protein Urine Glucose (UA) Urine Ketones Urine Occult Blood Urine Nitrite Urine Bilirubin Urine Urobilinogen Ur Leukocyte Esterase Urine RBC Urine WBC Urine Bacteria Micro UA Comment Urine Osmolality Ur Random Creatinine Ur Random Sodium Pleural pH Pleural WBC Pleural RBC Pleural Neutrophils Pleural Lymphocytes Pleural Monocytes Pleural Fluid Comment Pleural Total Protein Pleural LDH Pleural Glucose Nasal Screen MRSA (PCR) Random Vancomycin Salicylates 5.1 Urine Opiates Screen Acetaminophen LESS THAN 2.0 L Ur Barbiturates Screen Ur Amphetamines Screen U Benzodiazepines Scrn Urine Cocaine Screen U Cannabinoids Screen Ethyl Alcohol LESS THAN 3 GARY Screen Hepatitis A IgM Ab Hep Bs Antigen Hep B Core IgM Ab Hep C IgG Ab HIV 1&2 Ab/P24 Ag 4thGn 02/02/18 02/02/18 02/02/18 16:22 16:22 16:22 WBC 3.4 L RBC 4.98 Hgb 14.7 Hct 44.2 MCV 88.8 MCH 29.6 MCHC 33.3 RDW 15.9 Plt Count 50 L D MPV 11.3 H Neut % (Auto) 92.4 H Lymph % (Auto) 4.4 L [place] % (Auto) 2.6 Eos % (Auto) 0.4 Baso % (Auto) 0.2 Neut # (Auto) 3.2 Lymph # (Auto) 0.2 L [place] # (Auto) 0.1 Eos # (Auto) 0.0 Baso # (Auto) 0.0 CBC Comment AUTO DIFF Total Counted 100 Neutrophils % (Manual) 63 Band Neutrophils % 30 H Lymphocytes % 4 L Monocytes % 2 Eosinophils % 1 Neutrophils # (Manual) 3.2 Metamyelocytes Nucleated RBCs Differential Comment FINAL DIFF MANUAL Toxic Granulation 3+ H Toxic Vacuolation PRESENT H Dohle Bodies PRESENT H Platelet Estimate LOW L Plt Morphology Comment NORMAL Target Cells Tear Drop Cells Logan Cells 2+ H RBC Morph Comment PT 12.0 H INR 1.2 APTT 32.9 H Fibrinogen Puncture Site Patient Temperature HCO3 Base Excess O2 Saturation ABG pH ABG pCO2 ABG pO2 ABG O2 Content ABG Carboxyhemoglobin ABG Methemoglobin Hemoglobin O2 Delivery Device Vent Setting Inspired O2 Sodium Potassium Chloride Carbon Dioxide Anion Gap BUN Creatinine Estimated GFR POC Glucose Random Glucose Serum Osmolality Lactic Acid Calcium Prot Corrected Calcium Phosphorus Magnesium Iron TIBC % Saturation Ferritin Total Bilirubin AST ALT Alkaline Phosphatase Ammonia Total Creatine Kinase CK-MB (CK-2) CK-MB (CK-2) % Troponin I Total Protein Albumin Prealbumin LESS THAN 3 L Mzvbs-7-Xeclptvsoid Amylase Lipase Tumor Marker AFP TSH 3rd Generation Urine Color Urine Turbidity Urine pH Ur Specific [place] Urine Protein Urine Glucose (UA) Urine Ketones Urine Occult Blood Urine Nitrite Urine Bilirubin Urine Urobilinogen Ur Leukocyte Esterase Urine RBC Urine WBC Urine Bacteria Micro UA Comment Urine Osmolality Ur Random Creatinine Ur Random Sodium Pleural pH Pleural WBC Pleural RBC Pleural Neutrophils Pleural Lymphocytes Pleural Monocytes Pleural Fluid Comment Pleural Total Protein Pleural LDH Pleural Glucose Nasal Screen MRSA (PCR) Random Vancomycin Salicylates Urine Opiates Screen Acetaminophen Ur Barbiturates Screen Ur Amphetamines Screen U Benzodiazepines Scrn Urine Cocaine Screen U Cannabinoids Screen Ethyl Alcohol GARY Screen Hepatitis A IgM Ab Hep Bs Antigen Hep B Core IgM Ab Hep C IgG Ab HIV 1&2 Ab/P24 Ag 4thGn 02/02/18 02/02/18 02/02/18 16:22 17:09 17:14 WBC RBC Hgb Hct MCV MCH MCHC RDW Plt Count MPV Neut % (Auto) Lymph % (Auto) [place] % (Auto) Eos % (Auto) Baso % (Auto) Neut # (Auto) Lymph # (Auto) [place] # (Auto) Eos # (Auto) Baso # (Auto) CBC Comment Total Counted Neutrophils % (Manual) Band Neutrophils % Lymphocytes % Monocytes % Eosinophils % Neutrophils # (Manual) Metamyelocytes Nucleated RBCs Differential Comment Toxic Granulation Toxic Vacuolation Dohle Bodies Platelet Estimate Plt Morphology Comment Target Cells Tear Drop Cells Check Cells RBC Morph Comment PT INR APTT Fibrinogen Puncture Site Patient Temperature HCO3 Base Excess O2 Saturation ABG pH ABG pCO2 ABG pO2 ABG O2 Content ABG Carboxyhemoglobin ABG Methemoglobin Hemoglobin O2 Delivery Device Vent Setting Inspired O2 Sodium Potassium Chloride Carbon Dioxide Anion Gap BUN Creatinine Estimated GFR POC Glucose Random Glucose Serum Osmolality 304 H Lactic Acid 6.5 H* Calcium Prot Corrected Calcium Phosphorus Magnesium Iron TIBC % Saturation Ferritin Total Bilirubin AST ALT Alkaline Phosphatase Ammonia Total Creatine Kinase CK-MB (CK-2) CK-MB (CK-2) % Troponin I Total Protein Albumin Prealbumin Uvpya-1-Sclcxtqeebc Amylase Lipase Tumor Marker AFP TSH 3rd Generation Urine Color Taisha Urine Turbidity CLOUDY H Urine pH 5.0 Ur Specific [place] 1.017 Urine Protein 100 H Urine Glucose (UA) 50 Urine Ketones NEG Urine Occult Blood LARGE H Urine Nitrite NEG Urine Bilirubin NEG Urine Urobilinogen 2.0 H Ur Leukocyte Esterase NEG Urine RBC Urine WBC Urine Bacteria FEW H Micro UA Comment CATH-CULTURE IND Urine Osmolality Ur Random Creatinine Ur Random Sodium Pleural pH Pleural WBC Pleural RBC Pleural Neutrophils Pleural Lymphocytes Pleural Monocytes Pleural Fluid Comment Pleural Total Protein Pleural LDH Pleural Glucose Nasal Screen MRSA (PCR) Random Vancomycin Salicylates Urine Opiates Screen Acetaminophen Ur Barbiturates Screen Ur Amphetamines Screen U Benzodiazepines Scrn Urine Cocaine Screen U Cannabinoids Screen Ethyl Alcohol GARY Screen Hepatitis A IgM Ab Hep Bs Antigen Hep B Core IgM Ab Hep C IgG Ab HIV 1&2 Ab/P24 Ag 4thGn 02/02/18 02/02/18 02/02/18 17:20 17:21 17:21 WBC RBC Hgb Hct MCV MCH MCHC RDW Plt Count MPV Neut % (Auto) Lymph % (Auto) [place] % (Auto) Eos % (Auto) Baso % (Auto) Neut # (Auto) Lymph # (Auto) [place] # (Auto) Eos # (Auto) Baso # (Auto) CBC Comment Total Counted Neutrophils % (Manual) Band Neutrophils % Lymphocytes % Monocytes % Eosinophils % Neutrophils # (Manual) Metamyelocytes Nucleated RBCs Differential Comment Toxic Granulation Toxic Vacuolation Dohle Bodies Platelet Estimate Plt Morphology Comment Target Cells Tear Drop Cells Logan Cells RBC Morph Comment PT INR APTT Fibrinogen Puncture Site LT FEMORAL Patient Temperature 98.6 HCO3 15 L* Base Excess -12.9 L O2 Saturation 97 ABG pH 7.13 L* ABG pCO2 47 H ABG pO2 212 H ABG O2 Content 17.8 ABG Carboxyhemoglobin 0.5 ABG Methemoglobin 0.8 Hemoglobin 12.7 O2 Delivery Device VENTILATOR Vent Setting AC/16/500/+5 Inspired O2 100 Sodium Potassium Chloride Carbon Dioxide Anion Gap BUN Creatinine Estimated GFR POC Glucose Random Glucose Serum Osmolality Lactic Acid Calcium Prot Corrected Calcium Phosphorus Magnesium Iron TIBC % Saturation Ferritin Total Bilirubin AST ALT Alkaline Phosphatase Ammonia Total Creatine Kinase CK-MB (CK-2) CK-MB (CK-2) % Troponin I Total Protein Albumin Prealbumin Krqhf-5-Bynmihyrcaq Amylase Lipase Tumor Marker AFP TSH 3rd Generation Urine Color Urine Turbidity Urine pH Ur Specific [place] Urine Protein Urine Glucose (UA) Urine Ketones Urine Occult Blood Urine Nitrite Urine Bilirubin Urine Urobilinogen Ur Leukocyte Esterase Urine RBC Urine WBC Urine Bacteria Micro UA Comment Urine Osmolality 328 Ur Random Creatinine 237.3 Ur Random Sodium 14 Pleural pH Pleural WBC Pleural RBC Pleural Neutrophils Pleural Lymphocytes Pleural Monocytes Pleural Fluid Comment Pleural Total Protein Pleural LDH Pleural Glucose Nasal Screen MRSA (PCR) Random Vancomycin Salicylates Urine Opiates Screen NEG Acetaminophen Ur Barbiturates Screen NEG Ur Amphetamines Screen NEG U Benzodiazepines Scrn POS H Urine Cocaine Screen NEG U Cannabinoids Screen POS H Ethyl Alcohol GARY Screen Hepatitis A IgM Ab Hep Bs Antigen Hep B Core IgM Ab Hep C IgG Ab HIV 1&2 Ab/P24 Ag 4thGn 02/02/18 02/02/18 02/02/18 18:03 21:30 21:30 WBC RBC Hgb Hct MCV MCH MCHC RDW Plt Count MPV Neut % (Auto) Lymph % (Auto) [place] % (Auto) Eos % (Auto) Baso % (Auto) Neut # (Auto) Lymph # (Auto) [place] # (Auto) Eos # (Auto) Baso # (Auto) CBC Comment Total Counted Neutrophils % (Manual) Band Neutrophils % Lymphocytes % Monocytes % Eosinophils % Neutrophils # (Manual) Metamyelocytes Nucleated RBCs Differential Comment Toxic Granulation Toxic Vacuolation Dohle Bodies Platelet Estimate Plt Morphology Comment Target Cells Tear Drop Cells [place] Cells RBC Morph Comment PT INR APTT Fibrinogen Puncture Site ART LINE Patient Temperature 98.6 HCO3 19 L Base Excess -5.7 L O2 Saturation 95 ABG pH 7.33 L ABG pCO2 37 L ABG pO2 129 H ABG O2 Content 16.1 ABG Carboxyhemoglobin 0.8 ABG Methemoglobin 1.5 Hemoglobin 11.9 L O2 Delivery Device VENTILATOR Vent Setting VOLUME A/C Inspired O2 100 Sodium 138 Potassium Chloride Carbon Dioxide Anion Gap BUN Creatinine Estimated GFR POC Glucose Random Glucose Serum Osmolality Lactic Acid 7.0 H* Calcium Prot Corrected Calcium Phosphorus Magnesium Iron TIBC % Saturation Ferritin Total Bilirubin AST ALT Alkaline Phosphatase Ammonia Total Creatine Kinase 1596 H CK-MB (CK-2) 8.8 H CK-MB (CK-2) % 0.6 Troponin I 0.04 Total Protein Albumin Prealbumin Ktgjs-0-Cdcmjffszic Amylase Lipase Tumor Marker AFP TSH 3rd Generation Urine Color Urine Turbidity Urine pH Ur Specific [place] Urine Protein Urine Glucose (UA) Urine Ketones Urine Occult Blood Urine Nitrite Urine Bilirubin Urine Urobilinogen Ur Leukocyte Esterase Urine RBC Urine WBC Urine Bacteria Micro UA Comment Urine Osmolality Ur Random Creatinine Ur Random Sodium Pleural pH Pleural WBC Pleural RBC Pleural Neutrophils Pleural Lymphocytes Pleural Monocytes Pleural Fluid Comment Pleural Total Protein Pleural LDH Pleural Glucose Nasal Screen MRSA (PCR) Random Vancomycin Salicylates Urine Opiates Screen Acetaminophen Ur Barbiturates Screen Ur Amphetamines Screen U Benzodiazepines Scrn Urine Cocaine Screen U Cannabinoids Screen Ethyl Alcohol GARY Screen Hepatitis A IgM Ab Hep Bs Antigen Hep B Core IgM Ab Hep C IgG Ab HIV 1&2 Ab/P24 Ag 4thGn 02/02/18 02/03/18 02/03/18 23:15 04:15 04:15 WBC RBC Hgb Hct MCV MCH MCHC RDW Plt Count MPV Neut % (Auto) Lymph % (Auto) [place] % (Auto) Eos % (Auto) Baso % (Auto) Neut # (Auto) Lymph # (Auto) [place] # (Auto) Eos # (Auto) Baso # (Auto) CBC Comment Total Counted Neutrophils % (Manual) Band Neutrophils % Lymphocytes % Monocytes % Eosinophils % Neutrophils # (Manual) Metamyelocytes Nucleated RBCs Differential Comment Toxic Granulation Toxic Vacuolation Dohle Bodies Platelet Estimate Plt Morphology Comment Target Cells Tear Drop Cells [place] Cells RBC Morph Comment PT INR APTT Fibrinogen Puncture Site Patient Temperature HCO3 Base Excess O2 Saturation ABG pH ABG pCO2 ABG pO2 ABG O2 Content ABG Carboxyhemoglobin ABG Methemoglobin Hemoglobin O2 Delivery Device Vent Setting Inspired O2 Sodium 136 Potassium 3.4 L Chloride 97 L Carbon Dioxide 15.5 L Anion Gap 24 H BUN 85 H Creatinine 5.55 H Estimated GFR 11 L POC Glucose Random Glucose 121 H Serum Osmolality Lactic Acid 6.6 H* Calcium 6.8 L* D Prot Corrected Calcium 7.9 L D Phosphorus 5.0 H Magnesium 2.0 Iron TIBC % Saturation Ferritin Total Bilirubin 2.4 H AST 1778 H ALT 294 H Alkaline Phosphatase 67 Ammonia Total Creatine Kinase 2164 H CK-MB (CK-2) 9.3 H CK-MB (CK-2) % 0.4 Troponin I 0.09 H Total Protein 4.9 L Albumin 1.4 L Prealbumin Zjyfb-4-Aggfiiptmpp Amylase Lipase Tumor Marker AFP TSH 3rd Generation Urine Color Urine Turbidity Urine pH Ur Specific [place] Urine Protein Urine Glucose (UA) Urine Ketones Urine Occult Blood Urine Nitrite Urine Bilirubin Urine Urobilinogen Ur Leukocyte Esterase Urine RBC Urine WBC Urine Bacteria Micro UA Comment Urine Osmolality Ur Random Creatinine Ur Random Sodium Pleural pH Pleural WBC Pleural RBC Pleural Neutrophils Pleural Lymphocytes Pleural Monocytes Pleural Fluid Comment Pleural Total Protein Pleural LDH Pleural Glucose Nasal Screen MRSA (PCR) MRSA NOT DETECTED Random Vancomycin Salicylates Urine Opiates Screen Acetaminophen Ur Barbiturates Screen Ur Amphetamines Screen U Benzodiazepines Scrn Urine Cocaine Screen U Cannabinoids Screen Ethyl Alcohol GARY Screen Hepatitis A IgM Ab Hep Bs Antigen Hep B Core IgM Ab Hep C IgG Ab HIV 1&2 Ab/P24 Ag 4thGn 02/03/18 02/03/18 02/03/18 04:15 04:15 08:18 WBC 3.6 L RBC 4.60 Hgb 13.6 Hct 40.4 MCV 87.9 MCH 29.7 MCHC 33.8 RDW 16.2 Plt Count 61 L MPV 11.5 H Neut % (Auto) Lymph % (Auto) [place] % (Auto) Eos % (Auto) Baso % (Auto) Neut # (Auto) Lymph # (Auto) [place] # (Auto) Eos # (Auto) Baso # (Auto) CBC Comment Total Counted Neutrophils % (Manual) Band Neutrophils % Lymphocytes % Monocytes % Eosinophils % Neutrophils # (Manual) Metamyelocytes Nucleated RBCs Differential Comment Toxic Granulation Toxic Vacuolation Dohle Bodies Platelet Estimate Plt Morphology Comment Target Cells Tear Drop Cells [place] Cells RBC Morph Comment PT 11.1 INR 1.1 APTT 35.1 H Fibrinogen Puncture Site ART LINE Patient Temperature 98.6 HCO3 16 L* Base Excess -8.3 L O2 Saturation 93 ABG pH 7.38 ABG pCO2 28 L ABG pO2 88 ABG O2 Content 18.2 ABG Carboxyhemoglobin 0.4 ABG Methemoglobin 1.6 Hemoglobin 13.9 O2 Delivery Device VENTILATOR Vent Setting AC22/650/PEEP5 Inspired O2 40 Sodium Potassium Chloride Carbon Dioxide Anion Gap BUN Creatinine Estimated GFR POC Glucose Random Glucose Serum Osmolality Lactic Acid Calcium Prot Corrected Calcium Phosphorus Magnesium Iron TIBC % Saturation Ferritin Total Bilirubin AST ALT Alkaline Phosphatase Ammonia Total Creatine Kinase CK-MB (CK-2) CK-MB (CK-2) % Troponin I Total Protein Albumin Prealbumin Sviof-1-Vagxdtfclno Amylase Lipase Tumor Marker AFP TSH 3rd Generation Urine Color Urine Turbidity Urine pH Ur Specific [place] Urine Protein Urine Glucose (UA) Urine Ketones Urine Occult Blood Urine Nitrite Urine Bilirubin Urine Urobilinogen Ur Leukocyte Esterase Urine RBC Urine WBC Urine Bacteria Micro UA Comment Urine Osmolality Ur Random Creatinine Ur Random Sodium Pleural pH Pleural WBC Pleural RBC Pleural Neutrophils Pleural Lymphocytes Pleural Monocytes Pleural Fluid Comment Pleural Total Protein Pleural LDH Pleural Glucose Nasal Screen MRSA (PCR) Random Vancomycin Salicylates Urine Opiates Screen Acetaminophen Ur Barbiturates Screen Ur Amphetamines Screen U Benzodiazepines Scrn Urine Cocaine Screen U Cannabinoids Screen Ethyl Alcohol GARY Screen Hepatitis A IgM Ab Hep Bs Antigen Hep B Core IgM Ab Hep C IgG Ab HIV 1&2 Ab/P24 Ag 4thGn 02/03/18 02/03/18 02/03/18 10:45 10:45 10:45 WBC RBC Hgb Hct MCV MCH MCHC RDW Plt Count MPV Neut % (Auto) Lymph % (Auto) [place] % (Auto) Eos % (Auto) Baso % (Auto) Neut # (Auto) Lymph # (Auto) [place] # (Auto) Eos # (Auto) Baso # (Auto) CBC Comment Total Counted Neutrophils % (Manual) Band Neutrophils % Lymphocytes % Monocytes % Eosinophils % Neutrophils # (Manual) Metamyelocytes Nucleated RBCs Differential Comment Toxic Granulation Toxic Vacuolation Dohle Bodies Platelet Estimate Plt Morphology Comment Target Cells Tear Drop Cells Check Cells RBC Morph Comment PT INR APTT Fibrinogen GREATER THAN 860 H Puncture Site Patient Temperature HCO3 Base Excess O2 Saturation ABG pH ABG pCO2 ABG pO2 ABG O2 Content ABG Carboxyhemoglobin ABG Methemoglobin Hemoglobin O2 Delivery Device Vent Setting Inspired O2 Sodium Potassium Chloride Carbon Dioxide Anion Gap BUN Creatinine Estimated GFR POC Glucose Random Glucose Serum Osmolality Lactic Acid Calcium Prot Corrected Calcium Phosphorus Magnesium Iron TIBC % Saturation Ferritin Total Bilirubin AST ALT Alkaline Phosphatase Ammonia Total Creatine Kinase CK-MB (CK-2) CK-MB (CK-2) % Troponin I Total Protein Albumin Prealbumin Djowx-2-Ybpfyfzkgqt Amylase Lipase Tumor Marker AFP TSH 3rd Generation Urine Color Urine Turbidity Urine pH Ur Specific [place] Urine Protein Urine Glucose (UA) Urine Ketones Urine Occult Blood Urine Nitrite Urine Bilirubin Urine Urobilinogen Ur Leukocyte Esterase Urine RBC Urine WBC Urine Bacteria Micro UA Comment Urine Osmolality Ur Random Creatinine Ur Random Sodium Pleural pH Pleural WBC Pleural RBC Pleural Neutrophils Pleural Lymphocytes Pleural Monocytes Pleural Fluid Comment Pleural Total Protein Pleural LDH Pleural Glucose Nasal Screen MRSA (PCR) Random Vancomycin Salicylates Urine Opiates Screen Acetaminophen Ur Barbiturates Screen Ur Amphetamines Screen U Benzodiazepines Scrn Urine Cocaine Screen U Cannabinoids Screen Ethyl Alcohol GARY Screen Hepatitis A IgM Ab NONREACTIVE Hep Bs Antigen NONREACTIVE Hep B Core IgM Ab NONREACTIVE Hep C IgG Ab NONREACTIVE HIV 1&2 Ab/P24 Ag 4thGn NONREACTIVE 02/03/18 02/03/18 02/03/18 12:00 12:22 13:45 WBC RBC Hgb Hct MCV MCH MCHC RDW Plt Count MPV Neut % (Auto) Lymph % (Auto) [place] % (Auto) Eos % (Auto) Baso % (Auto) Neut # (Auto) Lymph # (Auto) [place] # (Auto) Eos # (Auto) Baso # (Auto) CBC Comment Total Counted Neutrophils % (Manual) Band Neutrophils % Lymphocytes % Monocytes % Eosinophils % Neutrophils # (Manual) Metamyelocytes Nucleated RBCs Differential Comment Toxic Granulation Toxic Vacuolation Dohle Bodies Platelet Estimate Plt Morphology Comment Target Cells Tear Drop Cells Check Cells RBC Morph Comment PT INR APTT Fibrinogen Puncture Site Patient Temperature HCO3 Base Excess O2 Saturation ABG pH ABG pCO2 ABG pO2 ABG O2 Content ABG Carboxyhemoglobin ABG Methemoglobin Hemoglobin O2 Delivery Device Vent Setting Inspired O2 Sodium 136 Potassium Chloride Carbon Dioxide Anion Gap BUN Creatinine Estimated GFR POC Glucose Random Glucose Serum Osmolality Lactic Acid 7.8 H* Calcium Prot Corrected Calcium Phosphorus Magnesium Iron TIBC % Saturation Ferritin Total Bilirubin AST ALT Alkaline Phosphatase Ammonia Total Creatine Kinase 2688 H CK-MB (CK-2) 9.5 H CK-MB (CK-2) % 0.4 Troponin I 0.10 H Total Protein Albumin Prealbumin Vvolc-1-Hiiyrrpdikv Amylase Lipase Tumor Marker AFP TSH 3rd Generation Urine Color Urine Turbidity Urine pH Ur Specific [place] Urine Protein Urine Glucose (UA) Urine Ketones Urine Occult Blood Urine Nitrite Urine Bilirubin Urine Urobilinogen Ur Leukocyte Esterase Urine RBC Urine WBC Urine Bacteria Micro UA Comment Urine Osmolality Ur Random Creatinine Ur Random Sodium Pleural pH 7.5 Pleural WBC 04405 H Pleural RBC 67660 H Pleural Neutrophils 82 Pleural Lymphocytes 17 Pleural Monocytes 1 Pleural Fluid Comment Pleural Total Protein Pleural LDH Pleural Glucose Nasal Screen MRSA (PCR) Random Vancomycin Salicylates Urine Opiates Screen Acetaminophen Ur Barbiturates Screen Ur Amphetamines Screen U Benzodiazepines Scrn Urine Cocaine Screen U Cannabinoids Screen Ethyl Alcohol GARY Screen Hepatitis A IgM Ab Hep Bs Antigen Hep B Core IgM Ab Hep C IgG Ab HIV 1&2 Ab/P24 Ag 4thGn 02/03/18 02/03/18 02/03/18 13:45 13:50 15:45 WBC RBC Hgb Hct MCV MCH MCHC RDW Plt Count MPV Neut % (Auto) Lymph % (Auto) [place] % (Auto) Eos % (Auto) Baso % (Auto) Neut # (Auto) Lymph # (Auto) [place] # (Auto) Eos # (Auto) Baso # (Auto) CBC Comment Total Counted Neutrophils % (Manual) Band Neutrophils % Lymphocytes % Monocytes % Eosinophils % Neutrophils # (Manual) Metamyelocytes Nucleated RBCs Differential Comment Toxic Granulation Toxic Vacuolation Dohle Bodies Platelet Estimate Plt Morphology Comment Target Cells Tear Drop Cells [place] Cells RBC Morph Comment PT INR APTT Fibrinogen Puncture Site Patient Temperature HCO3 Base Excess O2 Saturation ABG pH ABG pCO2 ABG pO2 ABG O2 Content ABG Carboxyhemoglobin ABG Methemoglobin Hemoglobin O2 Delivery Device Vent Setting Inspired O2 Sodium 133 L Potassium 4.1 Chloride 92 L Carbon Dioxide 17.4 L Anion Gap 24 H BUN 91 H Creatinine 5.85 H Estimated GFR 10 L POC Glucose Random Glucose 133 H Serum Osmolality Lactic Acid Calcium 6.5 L* Prot Corrected Calcium 7.6 L Phosphorus Magnesium Iron TIBC % Saturation Ferritin Total Bilirubin AST ALT Alkaline Phosphatase Ammonia Total Creatine Kinase CK-MB (CK-2) CK-MB (CK-2) % Troponin I Total Protein 4.9 L Albumin Prealbumin Pnhry-1-Thlubotcdpi Amylase Lipase Tumor Marker AFP 0.8 TSH 3rd Generation Urine Color Urine Turbidity Urine pH Ur Specific [place] Urine Protein Urine Glucose (UA) Urine Ketones Urine Occult Blood Urine Nitrite Urine Bilirubin Urine Urobilinogen Ur Leukocyte Esterase Urine RBC Urine WBC Urine Bacteria Micro UA Comment Urine Osmolality Ur Random Creatinine Ur Random Sodium Pleural pH Pleural WBC Pleural RBC Pleural Neutrophils Pleural Lymphocytes Pleural Monocytes Pleural Fluid Comment Pleural Total Protein 4.0 Pleural LDH 3449 Pleural Glucose 4 Nasal Screen MRSA (PCR) Random Vancomycin Salicylates Urine Opiates Screen Acetaminophen Ur Barbiturates Screen Ur Amphetamines Screen U Benzodiazepines Scrn Urine Cocaine Screen U Cannabinoids Screen Ethyl Alcohol GARY Screen Hepatitis A IgM Ab Hep Bs Antigen Hep B Core IgM Ab Hep C IgG Ab HIV 1&2 Ab/P24 Ag 4thGn 02/03/18 02/03/18 02/03/18 15:45 15:45 15:45 WBC RBC Hgb Hct MCV MCH MCHC RDW Plt Count MPV Neut % (Auto) Lymph % (Auto) [place] % (Auto) Eos % (Auto) Baso % (Auto) Neut # (Auto) Lymph # (Auto) [place] # (Auto) Eos # (Auto) Baso # (Auto) CBC Comment Total Counted Neutrophils % (Manual) Band Neutrophils % Lymphocytes % Monocytes % Eosinophils % Neutrophils # (Manual) Metamyelocytes Nucleated RBCs Differential Comment Toxic Granulation Toxic Vacuolation Dohle Bodies Platelet Estimate Plt Morphology Comment Target Cells Tear Drop Cells Check Cells RBC Morph Comment PT INR APTT Fibrinogen Puncture Site Patient Temperature HCO3 Base Excess O2 Saturation ABG pH ABG pCO2 ABG pO2 ABG O2 Content ABG Carboxyhemoglobin ABG Methemoglobin Hemoglobin O2 Delivery Device Vent Setting Inspired O2 Sodium Potassium Chloride Carbon Dioxide Anion Gap BUN Creatinine Estimated GFR POC Glucose Random Glucose Serum Osmolality Lactic Acid Calcium Prot Corrected Calcium Phosphorus Magnesium Iron TIBC % Saturation Ferritin Total Bilirubin AST ALT Alkaline Phosphatase Ammonia LESS THAN 10 L Total Creatine Kinase CK-MB (CK-2) CK-MB (CK-2) % Troponin I Total Protein Albumin Prealbumin Gonqs-0-Uqmijigkrca 433 H Amylase Lipase Tumor Marker AFP TSH 3rd Generation Urine Color Urine Turbidity Urine pH Ur Specific [place] Urine Protein Urine Glucose (UA) Urine Ketones Urine Occult Blood Urine Nitrite Urine Bilirubin Urine Urobilinogen Ur Leukocyte Esterase Urine RBC Urine WBC Urine Bacteria Micro UA Comment Urine Osmolality Ur Random Creatinine Ur Random Sodium Pleural pH Pleural WBC Pleural RBC Pleural Neutrophils Pleural Lymphocytes Pleural Monocytes Pleural Fluid Comment Pleural Total Protein Pleural LDH Pleural Glucose Nasal Screen MRSA (PCR) Random Vancomycin Salicylates Urine Opiates Screen Acetaminophen Ur Barbiturates Screen Ur Amphetamines Screen U Benzodiazepines Scrn Urine Cocaine Screen U Cannabinoids Screen Ethyl Alcohol GARY Screen NEG Hepatitis A IgM Ab Hep Bs Antigen Hep B Core IgM Ab Hep C IgG Ab HIV 1&2 Ab/P24 Ag 4thGn 02/04/18 02/04/18 02/04/18 04:55 04:55 04:55 WBC RBC Hgb Hct MCV MCH MCHC RDW Plt Count MPV Neut % (Auto) Lymph % (Auto) [place] % (Auto) Eos % (Auto) Baso % (Auto) Neut # (Auto) Lymph # (Auto) [place] # (Auto) Eos # (Auto) Baso # (Auto) CBC Comment Total Counted Neutrophils % (Manual) Band Neutrophils % Lymphocytes % Monocytes % Eosinophils % Neutrophils # (Manual) Metamyelocytes Nucleated RBCs Differential Comment Toxic Granulation Toxic Vacuolation Dohle Bodies Platelet Estimate Plt Morphology Comment Target Cells Tear Drop Cells Logan Cells RBC Morph Comment PT 11.0 INR 1.1 APTT 39.9 H Fibrinogen Puncture Site Patient Temperature HCO3 Base Excess O2 Saturation ABG pH ABG pCO2 ABG pO2 ABG O2 Content ABG Carboxyhemoglobin ABG Methemoglobin Hemoglobin O2 Delivery Device Vent Setting Inspired O2 Sodium 131 L Potassium 4.0 Chloride 86 L Carbon Dioxide 20.4 L Anion Gap 25 H BUN 93 H Creatinine 5.87 H Estimated GFR 10 L POC Glucose Random Glucose 218 H Serum Osmolality Lactic Acid 6.2 H* Calcium 5.9 L* Prot Corrected Calcium 7.2 L* Phosphorus 8.0 H D Magnesium 1.8 Iron 30 L TIBC 126 L % Saturation 23.8 Ferritin 2246 H Total Bilirubin 3.8 H AST 1034 H ALT 184 H Alkaline Phosphatase 89 Ammonia Total Creatine Kinase 3357 H CK-MB (CK-2) 13.8 H CK-MB (CK-2) % 0.4 Troponin I Total Protein 4.4 L Albumin 1.2 L Prealbumin Wmzot-3-Peecrutpcxo Amylase 49 Lipase 102 Tumor Marker AFP TSH 3rd Generation Urine Color Urine Turbidity Urine pH Ur Specific [place] Urine Protein Urine Glucose (UA) Urine Ketones Urine Occult Blood Urine Nitrite Urine Bilirubin Urine Urobilinogen Ur Leukocyte Esterase Urine RBC Urine WBC Urine Bacteria Micro UA Comment Urine Osmolality Ur Random Creatinine Ur Random Sodium Pleural pH Pleural WBC Pleural RBC Pleural Neutrophils Pleural Lymphocytes Pleural Monocytes Pleural Fluid Comment Pleural Total Protein Pleural LDH Pleural Glucose Nasal Screen MRSA (PCR) Random Vancomycin 20.4 Salicylates Urine Opiates Screen Acetaminophen Ur Barbiturates Screen Ur Amphetamines Screen U Benzodiazepines Scrn Urine Cocaine Screen U Cannabinoids Screen Ethyl Alcohol GARY Screen Hepatitis A IgM Ab Hep Bs Antigen Hep B Core IgM Ab Hep C IgG Ab HIV 1&2 Ab/P24 Ag 4thGn 02/04/18 02/04/18 02/04/18 04:55 08:10 12:46 WBC 14.4 H RBC 4.09 L Hgb 12.2 L Hct 36.0 L MCV 88.2 MCH 29.8 MCHC 33.8 RDW 16.1 Plt Count 76 L MPV 10.8 Neut % (Auto) 93.9 H Lymph % (Auto) 3.0 L [place] % (Auto) 0.5 Eos % (Auto) 2.0 Baso % (Auto) 0.6 Neut # (Auto) 13.6 H Lymph # (Auto) 0.4 L [place] # (Auto) 0.1 Eos # (Auto) 0.3 Baso # (Auto) 0.1 CBC Comment AUTO DIFF Total Counted 100 Neutrophils % (Manual) 56 Band Neutrophils % 38 H Lymphocytes % Monocytes % 4 Eosinophils % Neutrophils # (Manual) 13.8 H Metamyelocytes 2 H Nucleated RBCs 3 H Differential Comment FINAL DIFF MANUAL Toxic Granulation 1+ H Toxic Vacuolation Dohle Bodies PRESENT H Platelet Estimate LOW L Plt Morphology Comment ENLARGED H Target Cells Tear Drop Cells Logan Cells RBC Morph Comment NORMAL PT INR APTT Fibrinogen Puncture Site ART LINE Patient Temperature 98.6 HCO3 23 Base Excess -0.9 O2 Saturation 95 ABG pH 7.43 H ABG pCO2 36 L ABG pO2 101 ABG O2 Content 15.9 ABG Carboxyhemoglobin 0.6 ABG Methemoglobin 1.6 Hemoglobin 11.9 L O2 Delivery Device VENTILATOR Vent Setting A/C 650/18/5PEEP Inspired O2 40 Sodium 130 L Potassium 3.9 Chloride 84 L Carbon Dioxide 27.1 Anion Gap 19 H BUN 97 H Creatinine 5.78 H Estimated GFR 10 L POC Glucose Random Glucose 193 H Serum Osmolality Lactic Acid Calcium 5.5 L* Prot Corrected Calcium 6.7 L* D Phosphorus Magnesium Iron TIBC % Saturation Ferritin Total Bilirubin AST ALT Alkaline Phosphatase Ammonia Total Creatine Kinase 3765 H CK-MB (CK-2) 12.6 H CK-MB (CK-2) % 0.3 Troponin I Total Protein 4.3 L Albumin Prealbumin Hvihj-8-Ffpdvwdhjsc Amylase Lipase Tumor Marker AFP TSH 3rd Generation Urine Color Urine Turbidity Urine pH Ur Specific [place] Urine Protein Urine Glucose (UA) Urine Ketones Urine Occult Blood Urine Nitrite Urine Bilirubin Urine Urobilinogen Ur Leukocyte Esterase Urine RBC Urine WBC Urine Bacteria Micro UA Comment Urine Osmolality Ur Random Creatinine Ur Random Sodium Pleural pH Pleural WBC Pleural RBC Pleural Neutrophils Pleural Lymphocytes Pleural Monocytes Pleural Fluid Comment Pleural Total Protein Pleural LDH Pleural Glucose Nasal Screen MRSA (PCR) Random Vancomycin Salicylates Urine Opiates Screen Acetaminophen Ur Barbiturates Screen Ur Amphetamines Screen U Benzodiazepines Scrn Urine Cocaine Screen U Cannabinoids Screen Ethyl Alcohol GARY Screen Hepatitis A IgM Ab Hep Bs Antigen Hep B Core IgM Ab Hep C IgG Ab HIV 1&2 Ab/P24 Ag 4thGn 02/04/18 02/05/18 02/05/18 16:30 01:30 01:30 WBC RBC Hgb Hct MCV MCH MCHC RDW Plt Count MPV Neut % (Auto) Lymph % (Auto) [place] % (Auto) Eos % (Auto) Baso % (Auto) Neut # (Auto) Lymph # (Auto) [place] # (Auto) Eos # (Auto) Baso # (Auto) CBC Comment Total Counted Neutrophils % (Manual) Band Neutrophils % Lymphocytes % Monocytes % Eosinophils % Neutrophils # (Manual) Metamyelocytes Nucleated RBCs Differential Comment Toxic Granulation Toxic Vacuolation Dohle Bodies Platelet Estimate Plt Morphology Comment Target Cells Tear Drop Cells Check Cells RBC Morph Comment PT INR APTT 37.5 H Fibrinogen Puncture Site Patient Temperature HCO3 Base Excess O2 Saturation ABG pH ABG pCO2 ABG pO2 ABG O2 Content ABG Carboxyhemoglobin ABG Methemoglobin Hemoglobin O2 Delivery Device Vent Setting Inspired O2 Sodium Cancelled 130 L Potassium Cancelled 3.5 Chloride Cancelled 86 L Carbon Dioxide Cancelled 29.1 Anion Gap Cancelled 15 BUN Cancelled 83 H D Creatinine Cancelled 4.35 H D Estimated GFR Cancelled 14 L POC Glucose Random Glucose Cancelled 180 H Serum Osmolality Lactic Acid Calcium Cancelled 5.1 L* Prot Corrected Calcium 6.2 L* D Phosphorus 4.7 D Magnesium 1.6 Iron TIBC % Saturation Ferritin Total Bilirubin 4.2 H AST 729 H ALT 145 H Alkaline Phosphatase 125 H Ammonia Total Creatine Kinase CK-MB (CK-2) CK-MB (CK-2) % Troponin I Total Protein 4.4 L Albumin 1.2 L Prealbumin Xduot-0-Lbxaeyoxlcn Amylase Lipase Tumor Marker AFP TSH 3rd Generation Urine Color Urine Turbidity Urine pH Ur Specific [place] Urine Protein Urine Glucose (UA) Urine Ketones Urine Occult Blood Urine Nitrite Urine Bilirubin Urine Urobilinogen Ur Leukocyte Esterase Urine RBC Urine WBC Urine Bacteria Micro UA Comment Urine Osmolality Ur Random Creatinine Ur Random Sodium Pleural pH Pleural WBC Pleural RBC Pleural Neutrophils Pleural Lymphocytes Pleural Monocytes Pleural Fluid Comment Pleural Total Protein Pleural LDH Pleural Glucose Nasal Screen MRSA (PCR) Random Vancomycin Salicylates Urine Opiates Screen Acetaminophen Ur Barbiturates Screen Ur Amphetamines Screen U Benzodiazepines Scrn Urine Cocaine Screen U Cannabinoids Screen Ethyl Alcohol GARY Screen Hepatitis A IgM Ab Hep Bs Antigen Hep B Core IgM Ab Hep C IgG Ab HIV 1&2 Ab/P24 Ag 4thGn 02/05/18 02/05/18 02/05/18 01:30 01:30 01:30 WBC 18.0 H RBC 3.98 L Hgb 12.0 L Hct 34.5 L MCV 86.7 MCH 30.2 MCHC 34.8 RDW 16.8 Plt Count 69 L MPV 11.3 H Neut % (Auto) Lymph % (Auto) [place] % (Auto) Eos % (Auto) Baso % (Auto) Neut # (Auto) Lymph # (Auto) [place] # (Auto) Eos # (Auto) Baso # (Auto) CBC Comment AUTO DIFF Total Counted 100 Neutrophils % (Manual) 71 H Band Neutrophils % 20 H Lymphocytes % 1 L Monocytes % 3 Eosinophils % Neutrophils # (Manual) 17.3 H Metamyelocytes 5 H Nucleated RBCs Differential Comment FINAL DIFF MANUAL Toxic Granulation 1+ H Toxic Vacuolation PRESENT H Dohle Bodies PRESENT H Platelet Estimate LOW L Plt Morphology Comment ENLARGED H Target Cells 1+ H Tear Drop Cells 3+ H Check Cells RBC Morph Comment PT 10.4 INR 1.0 APTT 38.6 H Fibrinogen Puncture Site Patient Temperature HCO3 Base Excess O2 Saturation ABG pH ABG pCO2 ABG pO2 ABG O2 Content ABG Carboxyhemoglobin ABG Methemoglobin Hemoglobin O2 Delivery Device Vent Setting Inspired O2 Sodium Potassium Chloride Carbon Dioxide Anion Gap BUN Creatinine Estimated GFR POC Glucose Random Glucose Serum Osmolality Lactic Acid 3.2 H Calcium Prot Corrected Calcium Phosphorus Magnesium Iron TIBC % Saturation Ferritin Total Bilirubin AST ALT Alkaline Phosphatase Ammonia Total Creatine Kinase CK-MB (CK-2) CK-MB (CK-2) % Troponin I Total Protein Albumin Prealbumin Xqfut-4-Rcajcxvvefl Amylase Lipase Tumor Marker AFP TSH 3rd Generation Urine Color Urine Turbidity Urine pH Ur Specific [place] Urine Protein Urine Glucose (UA) Urine Ketones Urine Occult Blood Urine Nitrite Urine Bilirubin Urine Urobilinogen Ur Leukocyte Esterase Urine RBC Urine WBC Urine Bacteria Micro UA Comment Urine Osmolality Ur Random Creatinine Ur Random Sodium Pleural pH Pleural WBC Pleural RBC Pleural Neutrophils Pleural Lymphocytes Pleural Monocytes Pleural Fluid Comment Pleural Total Protein Pleural LDH Pleural Glucose Nasal Screen MRSA (PCR) Random Vancomycin Salicylates Urine Opiates Screen Acetaminophen Ur Barbiturates Screen Ur Amphetamines Screen U Benzodiazepines Scrn Urine Cocaine Screen U Cannabinoids Screen Ethyl Alcohol GARY Screen Hepatitis A IgM Ab Hep Bs Antigen Hep B Core IgM Ab Hep C IgG Ab HIV 1&2 Ab/P24 Ag 4thGn 02/05/18 02/06/18 02/06/18 21:00 03:40 03:40 WBC 24.5 H RBC 3.97 L Hgb 11.7 L Hct 35.0 L MCV 88.1 MCH 29.3 MCHC 33.3 RDW 17.0 Plt Count 66 L MPV 11.0 Neut % (Auto) Lymph % (Auto) [place] % (Auto) Eos % (Auto) Baso % (Auto) Neut # (Auto) Lymph # (Auto) [place] # (Auto) Eos # (Auto) Baso # (Auto) CBC Comment Total Counted Neutrophils % (Manual) Band Neutrophils % Lymphocytes % Monocytes % Eosinophils % Neutrophils # (Manual) Metamyelocytes Nucleated RBCs Differential Comment Toxic Granulation Toxic Vacuolation Dohle Bodies Platelet Estimate Plt Morphology Comment Target Cells Tear Drop Cells Check Cells RBC Morph Comment PT 10.7 INR 1.1 APTT 34.5 H Fibrinogen 681 H Puncture Site Patient Temperature HCO3 Base Excess O2 Saturation ABG pH ABG pCO2 ABG pO2 ABG O2 Content ABG Carboxyhemoglobin ABG Methemoglobin Hemoglobin O2 Delivery Device Vent Setting Inspired O2 Sodium 133 L Potassium 3.7 Chloride 89 L Carbon Dioxide 23.6 Anion Gap 20 H BUN 57 H D Creatinine 2.98 H D Estimated GFR 22 L POC Glucose Random Glucose 187 H Serum Osmolality Lactic Acid Calcium LESS THAN 5.0 L* Prot Corrected Calcium Phosphorus Magnesium Iron TIBC % Saturation Ferritin Total Bilirubin AST ALT Alkaline Phosphatase Ammonia Total Creatine Kinase CK-MB (CK-2) CK-MB (CK-2) % Troponin I Total Protein Albumin Prealbumin Zxqbx-8-Pswkwkhfwye Amylase Lipase Tumor Marker AFP TSH 3rd Generation Urine Color Urine Turbidity Urine pH Ur Specific [place] Urine Protein Urine Glucose (UA) Urine Ketones Urine Occult Blood Urine Nitrite Urine Bilirubin Urine Urobilinogen Ur Leukocyte Esterase Urine RBC Urine WBC Urine Bacteria Micro UA Comment Urine Osmolality Ur Random Creatinine Ur Random Sodium Pleural pH Pleural WBC Pleural RBC Pleural Neutrophils Pleural Lymphocytes Pleural Monocytes Pleural Fluid Comment Pleural Total Protein Pleural LDH Pleural Glucose Nasal Screen MRSA (PCR) Random Vancomycin Salicylates Urine Opiates Screen Acetaminophen Ur Barbiturates Screen Ur Amphetamines Screen U Benzodiazepines Scrn Urine Cocaine Screen U Cannabinoids Screen Ethyl Alcohol GARY Screen Hepatitis A IgM Ab Hep Bs Antigen Hep B Core IgM Ab Hep C IgG Ab HIV 1&2 Ab/P24 Ag 4thGn 02/06/18 02/06/18 02/06/18 03:40 08:00 10:24 WBC RBC Hgb Hct MCV MCH MCHC RDW Plt Count MPV Neut % (Auto) Lymph % (Auto) [place] % (Auto) Eos % (Auto) Baso % (Auto) Neut # (Auto) Lymph # (Auto) [place] # (Auto) Eos # (Auto) Baso # (Auto) CBC Comment Total Counted Neutrophils % (Manual) Band Neutrophils % Lymphocytes % Monocytes % Eosinophils % Neutrophils # (Manual) Metamyelocytes Nucleated RBCs Differential Comment Toxic Granulation Toxic Vacuolation Dohle Bodies Platelet Estimate Plt Morphology Comment Target Cells Tear Drop Cells Check Cells RBC Morph Comment PT INR APTT Fibrinogen Puncture Site Patient Temperature HCO3 Base Excess O2 Saturation ABG pH ABG pCO2 ABG pO2 ABG O2 Content ABG Carboxyhemoglobin ABG Methemoglobin Hemoglobin O2 Delivery Device Vent Setting Inspired O2 Sodium 134 L 132 L Potassium 3.6 4.0 Chloride 91 L 90 L Carbon Dioxide 22.6 24.1 Anion Gap 20 H 18 H BUN 62 H 67 H Creatinine 3.45 H 3.79 H Estimated GFR 19 L 17 L POC Glucose 250 H Random Glucose 205 H 229 H Serum Osmolality Lactic Acid Calcium 6.2 L* 6.2 L* Prot Corrected Calcium 7.4 L* 7.5 L Phosphorus 4.4 Magnesium 1.8 Iron TIBC % Saturation Ferritin Total Bilirubin 4.6 H AST 486 H ALT 118 H Alkaline Phosphatase 163 H Ammonia Total Creatine Kinase CK-MB (CK-2) CK-MB (CK-2) % Troponin I Total Protein 4.6 L 4.4 L Albumin 1.1 L Prealbumin 4 L Ghayd-2-Pcdfszunijd Amylase Lipase Tumor Marker AFP TSH 3rd Generation Urine Color Urine Turbidity Urine pH Ur Specific [place] Urine Protein Urine Glucose (UA) Urine Ketones Urine Occult Blood Urine Nitrite Urine Bilirubin Urine Urobilinogen Ur Leukocyte Esterase Urine RBC Urine WBC Urine Bacteria Micro UA Comment Urine Osmolality Ur Random Creatinine Ur Random Sodium Pleural pH Pleural WBC Pleural RBC Pleural Neutrophils Pleural Lymphocytes Pleural Monocytes Pleural Fluid Comment Pleural Total Protein Pleural LDH Pleural Glucose Nasal Screen MRSA (PCR) Random Vancomycin Salicylates Urine Opiates Screen Acetaminophen Ur Barbiturates Screen Ur Amphetamines Screen U Benzodiazepines Scrn Urine Cocaine Screen U Cannabinoids Screen Ethyl Alcohol GARY Screen Hepatitis A IgM Ab Hep Bs Antigen Hep B Core IgM Ab Hep C IgG Ab HIV 1&2 Ab/P24 Ag 4thGn 02/06/18 12:50 WBC RBC Hgb Hct MCV MCH MCHC RDW Plt Count MPV Neut % (Auto) Lymph % (Auto) [place] % (Auto) Eos % (Auto) Baso % (Auto) Neut # (Auto) Lymph # (Auto) [place] # (Auto) Eos # (Auto) Baso # (Auto) CBC Comment Total Counted Neutrophils % (Manual) Band Neutrophils % Lymphocytes % Monocytes % Eosinophils % Neutrophils # (Manual) Metamyelocytes Nucleated RBCs Differential Comment Toxic Granulation Toxic Vacuolation Dohle Bodies Platelet Estimate Plt Morphology Comment Target Cells Tear Drop Cells [place] Cells RBC Morph Comment PT INR APTT Fibrinogen Puncture Site Patient Temperature HCO3 Base Excess O2 Saturation ABG pH ABG pCO2 ABG pO2 ABG O2 Content ABG Carboxyhemoglobin ABG Methemoglobin Hemoglobin O2 Delivery Device Vent Setting Inspired O2 Sodium 138 Potassium 3.4 L Chloride 99 D Carbon Dioxide 20.5 L Anion Gap 19 H BUN 60 H Creatinine 3.34 H Estimated GFR 19 L POC Glucose Random Glucose 216 H Serum Osmolality Lactic Acid Calcium 5.2 L* D Prot Corrected Calcium 6.7 L* D Phosphorus Magnesium Iron TIBC % Saturation Ferritin Total Bilirubin AST ALT Alkaline Phosphatase Ammonia Total Creatine Kinase CK-MB (CK-2) CK-MB (CK-2) % Troponin I Total Protein Albumin Prealbumin Quvno-1-Gqzihigloww Amylase Lipase Tumor Marker AFP TSH 3rd Generation Urine Color Urine Turbidity Urine pH Ur Specific [place] Urine Protein Urine Glucose (UA) Urine Ketones Urine Occult Blood Urine Nitrite Urine Bilirubin Urine Urobilinogen Ur Leukocyte Esterase Urine RBC Urine WBC Urine Bacteria Micro UA Comment Urine Osmolality Ur Random Creatinine Ur Random Sodium Pleural pH Pleural WBC Pleural RBC Pleural Neutrophils Pleural Lymphocytes Pleural Monocytes Pleural Fluid Comment Pleural Total Protein Pleural LDH Pleural Glucose Nasal Screen MRSA (PCR) Random Vancomycin Salicylates Urine Opiates Screen Acetaminophen Ur Barbiturates Screen Ur Amphetamines Screen U Benzodiazepines Scrn Urine Cocaine Screen U Cannabinoids Screen Ethyl Alcohol GARY Screen Hepatitis A IgM Ab Hep Bs Antigen Hep B Core IgM Ab Hep C IgG Ab HIV 1&2 Ab/P24 Ag 4thGn <Brittany Willard Last Filed: 02/06/18 15:14> - Labs CBC & Chem 7: 02/06/18 03:40 02/06/18 12:50 Labs: Laboratory Results - last 24 hr 02/02/18 02/02/18 02/02/18 16:22 16:22 16:22 WBC RBC Hgb Hct MCV MCH MCHC RDW Plt Count MPV Neut % (Auto) Lymph % (Auto) [place] % (Auto) Eos % (Auto) Baso % (Auto) Neut # (Auto) Lymph # (Auto) [place] # (Auto) Eos # (Auto) Baso # (Auto) CBC Comment Total Counted Neutrophils % (Manual) Band Neutrophils % Lymphocytes % Monocytes % Eosinophils % Neutrophils # (Manual) Metamyelocytes Nucleated RBCs Differential Comment Toxic Granulation Toxic Vacuolation Dohle Bodies Platelet Estimate Plt Morphology Comment Target Cells Tear Drop Cells [place] Cells RBC Morph Comment PT INR APTT Fibrinogen Puncture Site Patient Temperature HCO3 Base Excess O2 Saturation ABG pH ABG pCO2 ABG pO2 ABG O2 Content ABG Carboxyhemoglobin ABG Methemoglobin Hemoglobin O2 Delivery Device Vent Setting Inspired O2 Sodium 133 L Potassium 3.4 L Chloride 96 L Carbon Dioxide 10.9 L Anion Gap 26 H BUN 81 H Creatinine 5.71 H Estimated GFR 10 L POC Glucose Random Glucose 142 H Serum Osmolality Lactic Acid Calcium 5.8 L* Prot Corrected Calcium 6.5 L* Phosphorus Magnesium Iron TIBC % Saturation Ferritin Total Bilirubin 1.7 H AST 1685 H ALT 307 H Alkaline Phosphatase 66 Ammonia LESS THAN 10 L Total Creatine Kinase 1286 H CK-MB (CK-2) 8.6 H CK-MB (CK-2) % 0.7 Troponin I 0.03 Total Protein 5.4 L D Albumin 1.8 L Prealbumin Fwhmt-1-Fcpmyfsdbyw Amylase Lipase Tumor Marker AFP TSH 3rd Generation 1.610 Urine Color Urine Turbidity Urine pH Ur Specific [place] Urine Protein Urine Glucose (UA) Urine Ketones Urine Occult Blood Urine Nitrite Urine Bilirubin Urine Urobilinogen Ur Leukocyte Esterase Urine RBC Urine WBC Urine Bacteria Micro UA Comment Urine Osmolality Ur Random Creatinine Ur Random Sodium Pleural pH Pleural WBC Pleural RBC Pleural Neutrophils Pleural Lymphocytes Pleural Monocytes Pleural Fluid Comment Pleural Total Protein Pleural LDH Pleural Glucose Nasal Screen MRSA (PCR) Random Vancomycin Salicylates 5.1 Urine Opiates Screen Acetaminophen LESS THAN 2.0 L Ur Barbiturates Screen Ur Amphetamines Screen U Benzodiazepines Scrn Urine Cocaine Screen U Cannabinoids Screen Ethyl Alcohol LESS THAN 3 GARY Screen Hepatitis A IgM Ab Hep Bs Antigen Hep B Core IgM Ab Hep C IgG Ab HIV 1&2 Ab/P24 Ag 4thGn 02/02/18 02/02/18 02/02/18 16:22 16:22 16:22 WBC 3.4 L RBC 4.98 Hgb 14.7 Hct 44.2 MCV 88.8 MCH 29.6 MCHC 33.3 RDW 15.9 Plt Count 50 L D MPV 11.3 H Neut % (Auto) 92.4 H Lymph % (Auto) 4.4 L [place] % (Auto) 2.6 Eos % (Auto) 0.4 Baso % (Auto) 0.2 Neut # (Auto) 3.2 Lymph # (Auto) 0.2 L [place] # (Auto) 0.1 Eos # (Auto) 0.0 Baso # (Auto) 0.0 CBC Comment AUTO DIFF Total Counted 100 Neutrophils % (Manual) 63 Band Neutrophils % 30 H Lymphocytes % 4 L Monocytes % 2 Eosinophils % 1 Neutrophils # (Manual) 3.2 Metamyelocytes Nucleated RBCs Differential Comment FINAL DIFF MANUAL Toxic Granulation 3+ H Toxic Vacuolation PRESENT H Dohle Bodies PRESENT H Platelet Estimate LOW L Plt Morphology Comment NORMAL Target Cells Tear Drop Cells [place] Cells 2+ H RBC Morph Comment PT 12.0 H INR 1.2 APTT 32.9 H Fibrinogen Puncture Site Patient Temperature HCO3 Base Excess O2 Saturation ABG pH ABG pCO2 ABG pO2 ABG O2 Content ABG Carboxyhemoglobin ABG Methemoglobin Hemoglobin O2 Delivery Device Vent Setting Inspired O2 Sodium Potassium Chloride Carbon Dioxide Anion Gap BUN Creatinine Estimated GFR POC Glucose Random Glucose Serum Osmolality Lactic Acid Calcium Prot Corrected Calcium Phosphorus Magnesium Iron TIBC % Saturation Ferritin Total Bilirubin AST ALT Alkaline Phosphatase Ammonia Total Creatine Kinase CK-MB (CK-2) CK-MB (CK-2) % Troponin I Total Protein Albumin Prealbumin LESS THAN 3 L Dqldw-8-Ybbqqmrxbxy Amylase Lipase Tumor Marker AFP TSH 3rd Generation Urine Color Urine Turbidity Urine pH Ur Specific [place] Urine Protein Urine Glucose (UA) Urine Ketones Urine Occult Blood Urine Nitrite Urine Bilirubin Urine Urobilinogen Ur Leukocyte Esterase Urine RBC Urine WBC Urine Bacteria Micro UA Comment Urine Osmolality Ur Random Creatinine Ur Random Sodium Pleural pH Pleural WBC Pleural RBC Pleural Neutrophils Pleural Lymphocytes Pleural Monocytes Pleural Fluid Comment Pleural Total Protein Pleural LDH Pleural Glucose Nasal Screen MRSA (PCR) Random Vancomycin Salicylates Urine Opiates Screen Acetaminophen Ur Barbiturates Screen Ur Amphetamines Screen U Benzodiazepines Scrn Urine Cocaine Screen U Cannabinoids Screen Ethyl Alcohol GARY Screen Hepatitis A IgM Ab Hep Bs Antigen Hep B Core IgM Ab Hep C IgG Ab HIV 1&2 Ab/P24 Ag 4thGn 02/02/18 02/02/18 02/02/18 16:22 17:09 17:14 WBC RBC Hgb Hct MCV MCH MCHC RDW Plt Count MPV Neut % (Auto) Lymph % (Auto) [place] % (Auto) Eos % (Auto) Baso % (Auto) Neut # (Auto) Lymph # (Auto) [place] # (Auto) Eos # (Auto) Baso # (Auto) CBC Comment Total Counted Neutrophils % (Manual) Band Neutrophils % Lymphocytes % Monocytes % Eosinophils % Neutrophils # (Manual) Metamyelocytes Nucleated RBCs Differential Comment Toxic Granulation Toxic Vacuolation Dohle Bodies Platelet Estimate Plt Morphology Comment Target Cells Tear Drop Cells Logan Cells RBC Morph Comment PT INR APTT Fibrinogen Puncture Site Patient Temperature HCO3 Base Excess O2 Saturation ABG pH ABG pCO2 ABG pO2 ABG O2 Content ABG Carboxyhemoglobin ABG Methemoglobin Hemoglobin O2 Delivery Device Vent Setting Inspired O2 Sodium Potassium Chloride Carbon Dioxide Anion Gap BUN Creatinine Estimated GFR POC Glucose Random Glucose Serum Osmolality 304 H Lactic Acid 6.5 H* Calcium Prot Corrected Calcium Phosphorus Magnesium Iron TIBC % Saturation Ferritin Total Bilirubin AST ALT Alkaline Phosphatase Ammonia Total Creatine Kinase CK-MB (CK-2) CK-MB (CK-2) % Troponin I Total Protein Albumin Prealbumin Gokih-5-Tsavoijhqjx Amylase Lipase Tumor Marker AFP TSH 3rd Generation Urine Color Taisha Urine Turbidity CLOUDY H Urine pH 5.0 Ur Specific [place] 1.017 Urine Protein 100 H Urine Glucose (UA) 50 Urine Ketones NEG Urine Occult Blood LARGE H Urine Nitrite NEG Urine Bilirubin NEG Urine Urobilinogen 2.0 H Ur Leukocyte Esterase NEG Urine RBC Urine WBC Urine Bacteria FEW H Micro UA Comment CATH-CULTURE IND Urine Osmolality Ur Random Creatinine Ur Random Sodium Pleural pH Pleural WBC Pleural RBC Pleural Neutrophils Pleural Lymphocytes Pleural Monocytes Pleural Fluid Comment Pleural Total Protein Pleural LDH Pleural Glucose Nasal Screen MRSA (PCR) Random Vancomycin Salicylates Urine Opiates Screen Acetaminophen Ur Barbiturates Screen Ur Amphetamines Screen U Benzodiazepines Scrn Urine Cocaine Screen U Cannabinoids Screen Ethyl Alcohol GARY Screen Hepatitis A IgM Ab Hep Bs Antigen Hep B Core IgM Ab Hep C IgG Ab HIV 1&2 Ab/P24 Ag 4thGn 02/02/18 02/02/18 02/02/18 17:20 17:21 17:21 WBC RBC Hgb Hct MCV MCH MCHC RDW Plt Count MPV Neut % (Auto) Lymph % (Auto) [place] % (Auto) Eos % (Auto) Baso % (Auto) Neut # (Auto) Lymph # (Auto) [place] # (Auto) Eos # (Auto) Baso # (Auto) CBC Comment Total Counted Neutrophils % (Manual) Band Neutrophils % Lymphocytes % Monocytes % Eosinophils % Neutrophils # (Manual) Metamyelocytes Nucleated RBCs Differential Comment Toxic Granulation Toxic Vacuolation Dohle Bodies Platelet Estimate Plt Morphology Comment Target Cells Tear Drop Cells Check Cells RBC Morph Comment PT INR APTT Fibrinogen Puncture Site LT FEMORAL Patient Temperature 98.6 HCO3 15 L* Base Excess -12.9 L O2 Saturation 97 ABG pH 7.13 L* ABG pCO2 47 H ABG pO2 212 H ABG O2 Content 17.8 ABG Carboxyhemoglobin 0.5 ABG Methemoglobin 0.8 Hemoglobin 12.7 O2 Delivery Device VENTILATOR Vent Setting AC/16/500/+5 Inspired O2 100 Sodium Potassium Chloride Carbon Dioxide Anion Gap BUN Creatinine Estimated GFR POC Glucose Random Glucose Serum Osmolality Lactic Acid Calcium Prot Corrected Calcium Phosphorus Magnesium Iron TIBC % Saturation Ferritin Total Bilirubin AST ALT Alkaline Phosphatase Ammonia Total Creatine Kinase CK-MB (CK-2) CK-MB (CK-2) % Troponin I Total Protein Albumin Prealbumin Rzmwt-9-Wyyonchcolp Amylase Lipase Tumor Marker AFP TSH 3rd Generation Urine Color Urine Turbidity Urine pH Ur Specific [place] Urine Protein Urine Glucose (UA) Urine Ketones Urine Occult Blood Urine Nitrite Urine Bilirubin Urine Urobilinogen Ur Leukocyte Esterase Urine RBC Urine WBC Urine Bacteria Micro UA Comment Urine Osmolality 328 Ur Random Creatinine 237.3 Ur Random Sodium 14 Pleural pH Pleural WBC Pleural RBC Pleural Neutrophils Pleural Lymphocytes Pleural Monocytes Pleural Fluid Comment Pleural Total Protein Pleural LDH Pleural Glucose Nasal Screen MRSA (PCR) Random Vancomycin Salicylates Urine Opiates Screen NEG Acetaminophen Ur Barbiturates Screen NEG Ur Amphetamines Screen NEG U Benzodiazepines Scrn POS H Urine Cocaine Screen NEG U Cannabinoids Screen POS H Ethyl Alcohol GARY Screen Hepatitis A IgM Ab Hep Bs Antigen Hep B Core IgM Ab Hep C IgG Ab HIV 1&2 Ab/P24 Ag 4thGn 02/02/18 02/02/18 02/02/18 18:03 21:30 21:30 WBC RBC Hgb Hct MCV MCH MCHC RDW Plt Count MPV Neut % (Auto) Lymph % (Auto) [place] % (Auto) Eos % (Auto) Baso % (Auto) Neut # (Auto) Lymph # (Auto) [place] # (Auto) Eos # (Auto) Baso # (Auto) CBC Comment Total Counted Neutrophils % (Manual) Band Neutrophils % Lymphocytes % Monocytes % Eosinophils % Neutrophils # (Manual) Metamyelocytes Nucleated RBCs Differential Comment Toxic Granulation Toxic Vacuolation Dohle Bodies Platelet Estimate Plt Morphology Comment Target Cells Tear Drop Cells Logan Cells RBC Morph Comment PT INR APTT Fibrinogen Puncture Site ART LINE Patient Temperature 98.6 HCO3 19 L Base Excess -5.7 L O2 Saturation 95 ABG pH 7.33 L ABG pCO2 37 L ABG pO2 129 H ABG O2 Content 16.1 ABG Carboxyhemoglobin 0.8 ABG Methemoglobin 1.5 Hemoglobin 11.9 L O2 Delivery Device VENTILATOR Vent Setting VOLUME A/C Inspired O2 100 Sodium 138 Potassium Chloride Carbon Dioxide Anion Gap BUN Creatinine Estimated GFR POC Glucose Random Glucose Serum Osmolality Lactic Acid 7.0 H* Calcium Prot Corrected Calcium Phosphorus Magnesium Iron TIBC % Saturation Ferritin Total Bilirubin AST ALT Alkaline Phosphatase Ammonia Total Creatine Kinase 1596 H CK-MB (CK-2) 8.8 H CK-MB (CK-2) % 0.6 Troponin I 0.04 Total Protein Albumin Prealbumin Gyyaq-9-Nvjcivdlyxb Amylase Lipase Tumor Marker AFP TSH 3rd Generation Urine Color Urine Turbidity Urine pH Ur Specific [place] Urine Protein Urine Glucose (UA) Urine Ketones Urine Occult Blood Urine Nitrite Urine Bilirubin Urine Urobilinogen Ur Leukocyte Esterase Urine RBC Urine WBC Urine Bacteria Micro UA Comment Urine Osmolality Ur Random Creatinine Ur Random Sodium Pleural pH Pleural WBC Pleural RBC Pleural Neutrophils Pleural Lymphocytes Pleural Monocytes Pleural Fluid Comment Pleural Total Protein Pleural LDH Pleural Glucose Nasal Screen MRSA (PCR) Random Vancomycin Salicylates Urine Opiates Screen Acetaminophen Ur Barbiturates Screen Ur Amphetamines Screen U Benzodiazepines Scrn Urine Cocaine Screen U Cannabinoids Screen Ethyl Alcohol GARY Screen Hepatitis A IgM Ab Hep Bs Antigen Hep B Core IgM Ab Hep C IgG Ab HIV 1&2 Ab/P24 Ag 4thGn 02/02/18 02/03/18 02/03/18 23:15 04:15 04:15 WBC RBC Hgb Hct MCV MCH MCHC RDW Plt Count MPV Neut % (Auto) Lymph % (Auto) [place] % (Auto) Eos % (Auto) Baso % (Auto) Neut # (Auto) Lymph # (Auto) [place] # (Auto) Eos # (Auto) Baso # (Auto) CBC Comment Total Counted Neutrophils % (Manual) Band Neutrophils % Lymphocytes % Monocytes % Eosinophils % Neutrophils # (Manual) Metamyelocytes Nucleated RBCs Differential Comment Toxic Granulation Toxic Vacuolation Dohle Bodies Platelet Estimate Plt Morphology Comment Target Cells Tear Drop Cells Logan Cells RBC Morph Comment PT INR APTT Fibrinogen Puncture Site Patient Temperature HCO3 Base Excess O2 Saturation ABG pH ABG pCO2 ABG pO2 ABG O2 Content ABG Carboxyhemoglobin ABG Methemoglobin Hemoglobin O2 Delivery Device Vent Setting Inspired O2 Sodium 136 Potassium 3.4 L Chloride 97 L Carbon Dioxide 15.5 L Anion Gap 24 H BUN 85 H Creatinine 5.55 H Estimated GFR 11 L POC Glucose Random Glucose 121 H Serum Osmolality Lactic Acid 6.6 H* Calcium 6.8 L* D Prot Corrected Calcium 7.9 L D Phosphorus 5.0 H Magnesium 2.0 Iron TIBC % Saturation Ferritin Total Bilirubin 2.4 H AST 1778 H ALT 294 H Alkaline Phosphatase 67 Ammonia Total Creatine Kinase 2164 H CK-MB (CK-2) 9.3 H CK-MB (CK-2) % 0.4 Troponin I 0.09 H Total Protein 4.9 L Albumin 1.4 L Prealbumin Byibm-1-Dagbwxloyny Amylase Lipase Tumor Marker AFP TSH 3rd Generation Urine Color Urine Turbidity Urine pH Ur Specific [place] Urine Protein Urine Glucose (UA) Urine Ketones Urine Occult Blood Urine Nitrite Urine Bilirubin Urine Urobilinogen Ur Leukocyte Esterase Urine RBC Urine WBC Urine Bacteria Micro UA Comment Urine Osmolality Ur Random Creatinine Ur Random Sodium Pleural pH Pleural WBC Pleural RBC Pleural Neutrophils Pleural Lymphocytes Pleural Monocytes Pleural Fluid Comment Pleural Total Protein Pleural LDH Pleural Glucose Nasal Screen MRSA (PCR) MRSA NOT DETECTED Random Vancomycin Salicylates Urine Opiates Screen Acetaminophen Ur Barbiturates Screen Ur Amphetamines Screen U Benzodiazepines Scrn Urine Cocaine Screen U Cannabinoids Screen Ethyl Alcohol GARY Screen Hepatitis A IgM Ab Hep Bs Antigen Hep B Core IgM Ab Hep C IgG Ab HIV 1&2 Ab/P24 Ag 4thGn 02/03/18 02/03/18 02/03/18 04:15 04:15 08:18 WBC 3.6 L RBC 4.60 Hgb 13.6 Hct 40.4 MCV 87.9 MCH 29.7 MCHC 33.8 RDW 16.2 Plt Count 61 L MPV 11.5 H Neut % (Auto) Lymph % (Auto) [place] % (Auto) Eos % (Auto) Baso % (Auto) Neut # (Auto) Lymph # (Auto) [place] # (Auto) Eos # (Auto) Baso # (Auto) CBC Comment Total Counted Neutrophils % (Manual) Band Neutrophils % Lymphocytes % Monocytes % Eosinophils % Neutrophils # (Manual) Metamyelocytes Nucleated RBCs Differential Comment Toxic Granulation Toxic Vacuolation Dohle Bodies Platelet Estimate Plt Morphology Comment Target Cells Tear Drop Cells Check Cells RBC Morph Comment PT 11.1 INR 1.1 APTT 35.1 H Fibrinogen Puncture Site ART LINE Patient Temperature 98.6 HCO3 16 L* Base Excess -8.3 L O2 Saturation 93 ABG pH 7.38 ABG pCO2 28 L ABG pO2 88 ABG O2 Content 18.2 ABG Carboxyhemoglobin 0.4 ABG Methemoglobin 1.6 Hemoglobin 13.9 O2 Delivery Device VENTILATOR Vent Setting AC22/650/PEEP5 Inspired O2 40 Sodium Potassium Chloride Carbon Dioxide Anion Gap BUN Creatinine Estimated GFR POC Glucose Random Glucose Serum Osmolality Lactic Acid Calcium Prot Corrected Calcium Phosphorus Magnesium Iron TIBC % Saturation Ferritin Total Bilirubin AST ALT Alkaline Phosphatase Ammonia Total Creatine Kinase CK-MB (CK-2) CK-MB (CK-2) % Troponin I Total Protein Albumin Prealbumin Dnufe-5-Fysimqftkpu Amylase Lipase Tumor Marker AFP TSH 3rd Generation Urine Color Urine Turbidity Urine pH Ur Specific [place] Urine Protein Urine Glucose (UA) Urine Ketones Urine Occult Blood Urine Nitrite Urine Bilirubin Urine Urobilinogen Ur Leukocyte Esterase Urine RBC Urine WBC Urine Bacteria Micro UA Comment Urine Osmolality Ur Random Creatinine Ur Random Sodium Pleural pH Pleural WBC Pleural RBC Pleural Neutrophils Pleural Lymphocytes Pleural Monocytes Pleural Fluid Comment Pleural Total Protein Pleural LDH Pleural Glucose Nasal Screen MRSA (PCR) Random Vancomycin Salicylates Urine Opiates Screen Acetaminophen Ur Barbiturates Screen Ur Amphetamines Screen U Benzodiazepines Scrn Urine Cocaine Screen U Cannabinoids Screen Ethyl Alcohol GARY Screen Hepatitis A IgM Ab Hep Bs Antigen Hep B Core IgM Ab Hep C IgG Ab HIV 1&2 Ab/P24 Ag 4thGn 02/03/18 02/03/18 02/03/18 10:45 10:45 10:45 WBC RBC Hgb Hct MCV MCH MCHC RDW Plt Count MPV Neut % (Auto) Lymph % (Auto) [place] % (Auto) Eos % (Auto) Baso % (Auto) Neut # (Auto) Lymph # (Auto) [place] # (Auto) Eos # (Auto) Baso # (Auto) CBC Comment Total Counted Neutrophils % (Manual) Band Neutrophils % Lymphocytes % Monocytes % Eosinophils % Neutrophils # (Manual) Metamyelocytes Nucleated RBCs Differential Comment Toxic Granulation Toxic Vacuolation Dohle Bodies Platelet Estimate Plt Morphology Comment Target Cells Tear Drop Cells Check Cells RBC Morph Comment PT INR APTT Fibrinogen GREATER THAN 860 H Puncture Site Patient Temperature HCO3 Base Excess O2 Saturation ABG pH ABG pCO2 ABG pO2 ABG O2 Content ABG Carboxyhemoglobin ABG Methemoglobin Hemoglobin O2 Delivery Device Vent Setting Inspired O2 Sodium Potassium Chloride Carbon Dioxide Anion Gap BUN Creatinine Estimated GFR POC Glucose Random Glucose Serum Osmolality Lactic Acid Calcium Prot Corrected Calcium Phosphorus Magnesium Iron TIBC % Saturation Ferritin Total Bilirubin AST ALT Alkaline Phosphatase Ammonia Total Creatine Kinase CK-MB (CK-2) CK-MB (CK-2) % Troponin I Total Protein Albumin Prealbumin Pooxw-5-Oxzsebufltu Amylase Lipase Tumor Marker AFP TSH 3rd Generation Urine Color Urine Turbidity Urine pH Ur Specific [place] Urine Protein Urine Glucose (UA) Urine Ketones Urine Occult Blood Urine Nitrite Urine Bilirubin Urine Urobilinogen Ur Leukocyte Esterase Urine RBC Urine WBC Urine Bacteria Micro UA Comment Urine Osmolality Ur Random Creatinine Ur Random Sodium Pleural pH Pleural WBC Pleural RBC Pleural Neutrophils Pleural Lymphocytes Pleural Monocytes Pleural Fluid Comment Pleural Total Protein Pleural LDH Pleural Glucose Nasal Screen MRSA (PCR) Random Vancomycin Salicylates Urine Opiates Screen Acetaminophen Ur Barbiturates Screen Ur Amphetamines Screen U Benzodiazepines Scrn Urine Cocaine Screen U Cannabinoids Screen Ethyl Alcohol GARY Screen Hepatitis A IgM Ab NONREACTIVE Hep Bs Antigen NONREACTIVE Hep B Core IgM Ab NONREACTIVE Hep C IgG Ab NONREACTIVE HIV 1&2 Ab/P24 Ag 4thGn NONREACTIVE 02/03/18 02/03/18 02/03/18 12:00 12:22 13:45 WBC RBC Hgb Hct MCV MCH MCHC RDW Plt Count MPV Neut % (Auto) Lymph % (Auto) [place] % (Auto) Eos % (Auto) Baso % (Auto) Neut # (Auto) Lymph # (Auto) [place] # (Auto) Eos # (Auto) Baso # (Auto) CBC Comment Total Counted Neutrophils % (Manual) Band Neutrophils % Lymphocytes % Monocytes % Eosinophils % Neutrophils # (Manual) Metamyelocytes Nucleated RBCs Differential Comment Toxic Granulation Toxic Vacuolation Dohle Bodies Platelet Estimate Plt Morphology Comment Target Cells Tear Drop Cells Logan Cells RBC Morph Comment PT INR APTT Fibrinogen Puncture Site Patient Temperature HCO3 Base Excess O2 Saturation ABG pH ABG pCO2 ABG pO2 ABG O2 Content ABG Carboxyhemoglobin ABG Methemoglobin Hemoglobin O2 Delivery Device Vent Setting Inspired O2 Sodium 136 Potassium Chloride Carbon Dioxide Anion Gap BUN Creatinine Estimated GFR POC Glucose Random Glucose Serum Osmolality Lactic Acid 7.8 H* Calcium Prot Corrected Calcium Phosphorus Magnesium Iron TIBC % Saturation Ferritin Total Bilirubin AST ALT Alkaline Phosphatase Ammonia Total Creatine Kinase 2688 H CK-MB (CK-2) 9.5 H CK-MB (CK-2) % 0.4 Troponin I 0.10 H Total Protein Albumin Prealbumin Njgdm-6-Rlbybgpktmf Amylase Lipase Tumor Marker AFP TSH 3rd Generation Urine Color Urine Turbidity Urine pH Ur Specific [place] Urine Protein Urine Glucose (UA) Urine Ketones Urine Occult Blood Urine Nitrite Urine Bilirubin Urine Urobilinogen Ur Leukocyte Esterase Urine RBC Urine WBC Urine Bacteria Micro UA Comment Urine Osmolality Ur Random Creatinine Ur Random Sodium Pleural pH 7.5 Pleural WBC 00864 H Pleural RBC 68822 H Pleural Neutrophils 82 Pleural Lymphocytes 17 Pleural Monocytes 1 Pleural Fluid Comment Pleural Total Protein Pleural LDH Pleural Glucose Nasal Screen MRSA (PCR) Random Vancomycin Salicylates Urine Opiates Screen Acetaminophen Ur Barbiturates Screen Ur Amphetamines Screen U Benzodiazepines Scrn Urine Cocaine Screen U Cannabinoids Screen Ethyl Alcohol GARY Screen Hepatitis A IgM Ab Hep Bs Antigen Hep B Core IgM Ab Hep C IgG Ab HIV 1&2 Ab/P24 Ag 4thGn 02/03/18 02/03/18 02/03/18 13:45 13:50 15:45 WBC RBC Hgb Hct MCV MCH MCHC RDW Plt Count MPV Neut % (Auto) Lymph % (Auto) [place] % (Auto) Eos % (Auto) Baso % (Auto) Neut # (Auto) Lymph # (Auto) [place] # (Auto) Eos # (Auto) Baso # (Auto) CBC Comment Total Counted Neutrophils % (Manual) Band Neutrophils % Lymphocytes % Monocytes % Eosinophils % Neutrophils # (Manual) Metamyelocytes Nucleated RBCs Differential Comment Toxic Granulation Toxic Vacuolation Dohle Bodies Platelet Estimate Plt Morphology Comment Target Cells Tear Drop Cells Check Cells RBC Morph Comment PT INR APTT Fibrinogen Puncture Site Patient Temperature HCO3 Base Excess O2 Saturation ABG pH ABG pCO2 ABG pO2 ABG O2 Content ABG Carboxyhemoglobin ABG Methemoglobin Hemoglobin O2 Delivery Device Vent Setting Inspired O2 Sodium 133 L Potassium 4.1 Chloride 92 L Carbon Dioxide 17.4 L Anion Gap 24 H BUN 91 H Creatinine 5.85 H Estimated GFR 10 L POC Glucose Random Glucose 133 H Serum Osmolality Lactic Acid Calcium 6.5 L* Prot Corrected Calcium 7.6 L Phosphorus Magnesium Iron TIBC % Saturation Ferritin Total Bilirubin AST ALT Alkaline Phosphatase Ammonia Total Creatine Kinase CK-MB (CK-2) CK-MB (CK-2) % Troponin I Total Protein 4.9 L Albumin Prealbumin Slzpo-1-Wdsdcctmdsj Amylase Lipase Tumor Marker AFP 0.8 TSH 3rd Generation Urine Color Urine Turbidity Urine pH Ur Specific [place] Urine Protein Urine Glucose (UA) Urine Ketones Urine Occult Blood Urine Nitrite Urine Bilirubin Urine Urobilinogen Ur Leukocyte Esterase Urine RBC Urine WBC Urine Bacteria Micro UA Comment Urine Osmolality Ur Random Creatinine Ur Random Sodium Pleural pH Pleural WBC Pleural RBC Pleural Neutrophils Pleural Lymphocytes Pleural Monocytes Pleural Fluid Comment Pleural Total Protein 4.0 Pleural LDH 3449 Pleural Glucose 4 Nasal Screen MRSA (PCR) Random Vancomycin Salicylates Urine Opiates Screen Acetaminophen Ur Barbiturates Screen Ur Amphetamines Screen U Benzodiazepines Scrn Urine Cocaine Screen U Cannabinoids Screen Ethyl Alcohol GARY Screen Hepatitis A IgM Ab Hep Bs Antigen Hep B Core IgM Ab Hep C IgG Ab HIV 1&2 Ab/P24 Ag 4thGn 02/03/18 02/03/18 02/03/18 15:45 15:45 15:45 WBC RBC Hgb Hct MCV MCH MCHC RDW Plt Count MPV Neut % (Auto) Lymph % (Auto) [place] % (Auto) Eos % (Auto) Baso % (Auto) Neut # (Auto) Lymph # (Auto) [place] # (Auto) Eos # (Auto) Baso # (Auto) CBC Comment Total Counted Neutrophils % (Manual) Band Neutrophils % Lymphocytes % Monocytes % Eosinophils % Neutrophils # (Manual) Metamyelocytes Nucleated RBCs Differential Comment Toxic Granulation Toxic Vacuolation Dohle Bodies Platelet Estimate Plt Morphology Comment Target Cells Tear Drop Cells Check Cells RBC Morph Comment PT INR APTT Fibrinogen Puncture Site Patient Temperature HCO3 Base Excess O2 Saturation ABG pH ABG pCO2 ABG pO2 ABG O2 Content ABG Carboxyhemoglobin ABG Methemoglobin Hemoglobin O2 Delivery Device Vent Setting Inspired O2 Sodium Potassium Chloride Carbon Dioxide Anion Gap BUN Creatinine Estimated GFR POC Glucose Random Glucose Serum Osmolality Lactic Acid Calcium Prot Corrected Calcium Phosphorus Magnesium Iron TIBC % Saturation Ferritin Total Bilirubin AST ALT Alkaline Phosphatase Ammonia LESS THAN 10 L Total Creatine Kinase CK-MB (CK-2) CK-MB (CK-2) % Troponin I Total Protein Albumin Prealbumin Seslk-6-Yfiadcizwmi 433 H Amylase Lipase Tumor Marker AFP TSH 3rd Generation Urine Color Urine Turbidity Urine pH Ur Specific [place] Urine Protein Urine Glucose (UA) Urine Ketones Urine Occult Blood Urine Nitrite Urine Bilirubin Urine Urobilinogen Ur Leukocyte Esterase Urine RBC Urine WBC Urine Bacteria Micro UA Comment Urine Osmolality Ur Random Creatinine Ur Random Sodium Pleural pH Pleural WBC Pleural RBC Pleural Neutrophils Pleural Lymphocytes Pleural Monocytes Pleural Fluid Comment Pleural Total Protein Pleural LDH Pleural Glucose Nasal Screen MRSA (PCR) Random Vancomycin Salicylates Urine Opiates Screen Acetaminophen Ur Barbiturates Screen Ur Amphetamines Screen U Benzodiazepines Scrn Urine Cocaine Screen U Cannabinoids Screen Ethyl Alcohol GARY Screen NEG Hepatitis A IgM Ab Hep Bs Antigen Hep B Core IgM Ab Hep C IgG Ab HIV 1&2 Ab/P24 Ag 4thGn 02/04/18 02/04/18 02/04/18 04:55 04:55 04:55 WBC RBC Hgb Hct MCV MCH MCHC RDW Plt Count MPV Neut % (Auto) Lymph % (Auto) [place] % (Auto) Eos % (Auto) Baso % (Auto) Neut # (Auto) Lymph # (Auto) [place] # (Auto) Eos # (Auto) Baso # (Auto) CBC Comment Total Counted Neutrophils % (Manual) Band Neutrophils % Lymphocytes % Monocytes % Eosinophils % Neutrophils # (Manual) Metamyelocytes Nucleated RBCs Differential Comment Toxic Granulation Toxic Vacuolation Dohle Bodies Platelet Estimate Plt Morphology Comment Target Cells Tear Drop Cells Logan Cells RBC Morph Comment PT 11.0 INR 1.1 APTT 39.9 H Fibrinogen Puncture Site Patient Temperature HCO3 Base Excess O2 Saturation ABG pH ABG pCO2 ABG pO2 ABG O2 Content ABG Carboxyhemoglobin ABG Methemoglobin Hemoglobin O2 Delivery Device Vent Setting Inspired O2 Sodium 131 L Potassium 4.0 Chloride 86 L Carbon Dioxide 20.4 L Anion Gap 25 H BUN 93 H Creatinine 5.87 H Estimated GFR 10 L POC Glucose Random Glucose 218 H Serum Osmolality Lactic Acid 6.2 H* Calcium 5.9 L* Prot Corrected Calcium 7.2 L* Phosphorus 8.0 H D Magnesium 1.8 Iron 30 L TIBC 126 L % Saturation 23.8 Ferritin 2246 H Total Bilirubin 3.8 H AST 1034 H ALT 184 H Alkaline Phosphatase 89 Ammonia Total Creatine Kinase 3357 H CK-MB (CK-2) 13.8 H CK-MB (CK-2) % 0.4 Troponin I Total Protein 4.4 L Albumin 1.2 L Prealbumin Djqzq-1-Dcihdtepvmf Amylase 49 Lipase 102 Tumor Marker AFP TSH 3rd Generation Urine Color Urine Turbidity Urine pH Ur Specific [place] Urine Protein Urine Glucose (UA) Urine Ketones Urine Occult Blood Urine Nitrite Urine Bilirubin Urine Urobilinogen Ur Leukocyte Esterase Urine RBC Urine WBC Urine Bacteria Micro UA Comment Urine Osmolality Ur Random Creatinine Ur Random Sodium Pleural pH Pleural WBC Pleural RBC Pleural Neutrophils Pleural Lymphocytes Pleural Monocytes Pleural Fluid Comment Pleural Total Protein Pleural LDH Pleural Glucose Nasal Screen MRSA (PCR) Random Vancomycin 20.4 Salicylates Urine Opiates Screen Acetaminophen Ur Barbiturates Screen Ur Amphetamines Screen U Benzodiazepines Scrn Urine Cocaine Screen U Cannabinoids Screen Ethyl Alcohol GARY Screen Hepatitis A IgM Ab Hep Bs Antigen Hep B Core IgM Ab Hep C IgG Ab HIV 1&2 Ab/P24 Ag 4thGn 02/04/18 02/04/18 02/04/18 04:55 08:10 12:46 WBC 14.4 H RBC 4.09 L Hgb 12.2 L Hct 36.0 L MCV 88.2 MCH 29.8 MCHC 33.8 RDW 16.1 Plt Count 76 L MPV 10.8 Neut % (Auto) 93.9 H Lymph % (Auto) 3.0 L [place] % (Auto) 0.5 Eos % (Auto) 2.0 Baso % (Auto) 0.6 Neut # (Auto) 13.6 H Lymph # (Auto) 0.4 L [place] # (Auto) 0.1 Eos # (Auto) 0.3 Baso # (Auto) 0.1 CBC Comment AUTO DIFF Total Counted 100 Neutrophils % (Manual) 56 Band Neutrophils % 38 H Lymphocytes % Monocytes % 4 Eosinophils % Neutrophils # (Manual) 13.8 H Metamyelocytes 2 H Nucleated RBCs 3 H Differential Comment FINAL DIFF MANUAL Toxic Granulation 1+ H Toxic Vacuolation Dohle Bodies PRESENT H Platelet Estimate LOW L Plt Morphology Comment ENLARGED H Target Cells Tear Drop Cells Check Cells RBC Morph Comment NORMAL PT INR APTT Fibrinogen Puncture Site ART LINE Patient Temperature 98.6 HCO3 23 Base Excess -0.9 O2 Saturation 95 ABG pH 7.43 H ABG pCO2 36 L ABG pO2 101 ABG O2 Content 15.9 ABG Carboxyhemoglobin 0.6 ABG Methemoglobin 1.6 Hemoglobin 11.9 L O2 Delivery Device VENTILATOR Vent Setting A/C 650/18/5PEEP Inspired O2 40 Sodium 130 L Potassium 3.9 Chloride 84 L Carbon Dioxide 27.1 Anion Gap 19 H BUN 97 H Creatinine 5.78 H Estimated GFR 10 L POC Glucose Random Glucose 193 H Serum Osmolality Lactic Acid Calcium 5.5 L* Prot Corrected Calcium 6.7 L* D Phosphorus Magnesium Iron TIBC % Saturation Ferritin Total Bilirubin AST ALT Alkaline Phosphatase Ammonia Total Creatine Kinase 3765 H CK-MB (CK-2) 12.6 H CK-MB (CK-2) % 0.3 Troponin I Total Protein 4.3 L Albumin Prealbumin Bfssd-[id number] Amylase Lipase Tumor Marker AFP TSH 3rd Generation Urine Color Urine Turbidity Urine pH Ur Specific [place] Urine Protein Urine Glucose (UA) Urine Ketones Urine Occult Blood Urine Nitrite Urine Bilirubin Urine Urobilinogen Ur Leukocyte Esterase Urine RBC Urine WBC Urine Bacteria Micro UA Comment Urine Osmolality Ur Random Creatinine Ur Random Sodium Pleural pH Pleural WBC Pleural RBC Pleural Neutrophils Pleural Lymphocytes Pleural Monocytes Pleural Fluid Comment Pleural Total Protein Pleural LDH Pleural Glucose Nasal Screen MRSA (PCR) Random Vancomycin Salicylates Urine Opiates Screen Acetaminophen Ur Barbiturates Screen Ur Amphetamines Screen U Benzodiazepines Scrn Urine Cocaine Screen U Cannabinoids Screen Ethyl Alcohol GARY Screen Hepatitis A IgM Ab Hep Bs Antigen Hep B Core IgM Ab Hep C IgG Ab HIV 1&2 Ab/P24 Ag 4thGn 02/04/18 02/05/18 02/05/18 16:30 01:30 01:30 WBC RBC Hgb Hct MCV MCH MCHC RDW Plt Count MPV Neut % (Auto) Lymph % (Auto) [place] % (Auto) Eos % (Auto) Baso % (Auto) Neut # (Auto) Lymph # (Auto) [place] # (Auto) Eos # (Auto) Baso # (Auto) CBC Comment Total Counted Neutrophils % (Manual) Band Neutrophils % Lymphocytes % Monocytes % Eosinophils % Neutrophils # (Manual) Metamyelocytes Nucleated RBCs Differential Comment Toxic Granulation Toxic Vacuolation Dohle Bodies Platelet Estimate Plt Morphology Comment Target Cells Tear Drop Cells Check Cells RBC Morph Comment PT INR APTT 37.5 H Fibrinogen Puncture Site Patient Temperature HCO3 Base Excess O2 Saturation ABG pH ABG pCO2 ABG pO2 ABG O2 Content ABG Carboxyhemoglobin ABG Methemoglobin Hemoglobin O2 Delivery Device Vent Setting Inspired O2 Sodium Cancelled 130 L Potassium Cancelled 3.5 Chloride Cancelled 86 L Carbon Dioxide Cancelled 29.1 Anion Gap Cancelled 15 BUN Cancelled 83 H D Creatinine Cancelled 4.35 H D Estimated GFR Cancelled 14 L POC Glucose Random Glucose Cancelled 180 H Serum Osmolality Lactic Acid Calcium Cancelled 5.1 L* Prot Corrected Calcium 6.2 L* D Phosphorus 4.7 D Magnesium 1.6 Iron TIBC % Saturation Ferritin Total Bilirubin 4.2 H AST 729 H ALT 145 H Alkaline Phosphatase 125 H Ammonia Total Creatine Kinase CK-MB (CK-2) CK-MB (CK-2) % Troponin I Total Protein 4.4 L Albumin 1.2 L Prealbumin Nxfzq-1-Vrtnhqqhanh Amylase Lipase Tumor Marker AFP TSH 3rd Generation Urine Color Urine Turbidity Urine pH Ur Specific [place] Urine Protein Urine Glucose (UA) Urine Ketones Urine Occult Blood Urine Nitrite Urine Bilirubin Urine Urobilinogen Ur Leukocyte Esterase Urine RBC Urine WBC Urine Bacteria Micro UA Comment Urine Osmolality Ur Random Creatinine Ur Random Sodium Pleural pH Pleural WBC Pleural RBC Pleural Neutrophils Pleural Lymphocytes Pleural Monocytes Pleural Fluid Comment Pleural Total Protein Pleural LDH Pleural Glucose Nasal Screen MRSA (PCR) Random Vancomycin Salicylates Urine Opiates Screen Acetaminophen Ur Barbiturates Screen Ur Amphetamines Screen U Benzodiazepines Scrn Urine Cocaine Screen U Cannabinoids Screen Ethyl Alcohol GARY Screen Hepatitis A IgM Ab Hep Bs Antigen Hep B Core IgM Ab Hep C IgG Ab HIV 1&2 Ab/P24 Ag 4thGn 02/05/18 02/05/18 02/05/18 01:30 01:30 01:30 WBC 18.0 H RBC 3.98 L Hgb 12.0 L Hct 34.5 L MCV 86.7 MCH 30.2 MCHC 34.8 RDW 16.8 Plt Count 69 L MPV 11.3 H Neut % (Auto) Lymph % (Auto) [place] % (Auto) Eos % (Auto) Baso % (Auto) Neut # (Auto) Lymph # (Auto) [place] # (Auto) Eos # (Auto) Baso # (Auto) CBC Comment AUTO DIFF Total Counted 100 Neutrophils % (Manual) 71 H Band Neutrophils % 20 H Lymphocytes % 1 L Monocytes % 3 Eosinophils % Neutrophils # (Manual) 17.3 H Metamyelocytes 5 H Nucleated RBCs Differential Comment FINAL DIFF MANUAL Toxic Granulation 1+ H Toxic Vacuolation PRESENT H Dohle Bodies PRESENT H Platelet Estimate LOW L Plt Morphology Comment ENLARGED H Target Cells 1+ H Tear Drop Cells 3+ H Check Cells RBC Morph Comment PT 10.4 INR 1.0 APTT 38.6 H Fibrinogen Puncture Site Patient Temperature HCO3 Base Excess O2 Saturation ABG pH ABG pCO2 ABG pO2 ABG O2 Content ABG Carboxyhemoglobin ABG Methemoglobin Hemoglobin O2 Delivery Device Vent Setting Inspired O2 Sodium Potassium Chloride Carbon Dioxide Anion Gap BUN Creatinine Estimated GFR POC Glucose Random Glucose Serum Osmolality Lactic Acid 3.2 H Calcium Prot Corrected Calcium Phosphorus Magnesium Iron TIBC % Saturation Ferritin Total Bilirubin AST ALT Alkaline Phosphatase Ammonia Total Creatine Kinase CK-MB (CK-2) CK-MB (CK-2) % Troponin I Total Protein Albumin Prealbumin Wfsfb-3-Dniashbvplb Amylase Lipase Tumor Marker AFP TSH 3rd Generation Urine Color Urine Turbidity Urine pH Ur Specific [place] Urine Protein Urine Glucose (UA) Urine Ketones Urine Occult Blood Urine Nitrite Urine Bilirubin Urine Urobilinogen Ur Leukocyte Esterase Urine RBC Urine WBC Urine Bacteria Micro UA Comment Urine Osmolality Ur Random Creatinine Ur Random Sodium Pleural pH Pleural WBC Pleural RBC Pleural Neutrophils Pleural Lymphocytes Pleural Monocytes Pleural Fluid Comment Pleural Total Protein Pleural LDH Pleural Glucose Nasal Screen MRSA (PCR) Random Vancomycin Salicylates Urine Opiates Screen Acetaminophen Ur Barbiturates Screen Ur Amphetamines Screen U Benzodiazepines Scrn Urine Cocaine Screen U Cannabinoids Screen Ethyl Alcohol GARY Screen Hepatitis A IgM Ab Hep Bs Antigen Hep B Core IgM Ab Hep C IgG Ab HIV 1&2 Ab/P24 Ag 4thGn 02/05/18 02/06/18 02/06/18 21:00 03:40 03:40 WBC 24.5 H RBC 3.97 L Hgb 11.7 L Hct 35.0 L MCV 88.1 MCH 29.3 MCHC 33.3 RDW 17.0 Plt Count 66 L MPV 11.0 Neut % (Auto) Lymph % (Auto) [place] % (Auto) Eos % (Auto) Baso % (Auto) Neut # (Auto) Lymph # (Auto) [place] # (Auto) Eos # (Auto) Baso # (Auto) CBC Comment Total Counted Neutrophils % (Manual) Band Neutrophils % Lymphocytes % Monocytes % Eosinophils % Neutrophils # (Manual) Metamyelocytes Nucleated RBCs Differential Comment Toxic Granulation Toxic Vacuolation Dohle Bodies Platelet Estimate Plt Morphology Comment Target Cells Tear Drop Cells Check Cells RBC Morph Comment PT 10.7 INR 1.1 APTT 34.5 H Fibrinogen 681 H Puncture Site Patient Temperature HCO3 Base Excess O2 Saturation ABG pH ABG pCO2 ABG pO2 ABG O2 Content ABG Carboxyhemoglobin ABG Methemoglobin Hemoglobin O2 Delivery Device Vent Setting Inspired O2 Sodium 133 L Potassium 3.7 Chloride 89 L Carbon Dioxide 23.6 Anion Gap 20 H BUN 57 H D Creatinine 2.98 H D Estimated GFR 22 L POC Glucose Random Glucose 187 H Serum Osmolality Lactic Acid Calcium LESS THAN 5.0 L* Prot Corrected Calcium Phosphorus Magnesium Iron TIBC % Saturation Ferritin Total Bilirubin AST ALT Alkaline Phosphatase Ammonia Total Creatine Kinase CK-MB (CK-2) CK-MB (CK-2) % Troponin I Total Protein Albumin Prealbumin Spmph-5-Nhctwmehtvx Amylase Lipase Tumor Marker AFP TSH 3rd Generation Urine Color Urine Turbidity Urine pH Ur Specific [place] Urine Protein Urine Glucose (UA) Urine Ketones Urine Occult Blood Urine Nitrite Urine Bilirubin Urine Urobilinogen Ur Leukocyte Esterase Urine RBC Urine WBC Urine Bacteria Micro UA Comment Urine Osmolality Ur Random Creatinine Ur Random Sodium Pleural pH Pleural WBC Pleural RBC Pleural Neutrophils Pleural Lymphocytes Pleural Monocytes Pleural Fluid Comment Pleural Total Protein Pleural LDH Pleural Glucose Nasal Screen MRSA (PCR) Random Vancomycin Salicylates Urine Opiates Screen Acetaminophen Ur Barbiturates Screen Ur Amphetamines Screen U Benzodiazepines Scrn Urine Cocaine Screen U Cannabinoids Screen Ethyl Alcohol GARY Screen Hepatitis A IgM Ab Hep Bs Antigen Hep B Core IgM Ab Hep C IgG Ab HIV 1&2 Ab/P24 Ag 4thGn 02/06/18 02/06/18 02/06/18 03:40 08:00 10:24 WBC RBC Hgb Hct MCV MCH MCHC RDW Plt Count MPV Neut % (Auto) Lymph % (Auto) [place] % (Auto) Eos % (Auto) Baso % (Auto) Neut # (Auto) Lymph # (Auto) [place] # (Auto) Eos # (Auto) Baso # (Auto) CBC Comment Total Counted Neutrophils % (Manual) Band Neutrophils % Lymphocytes % Monocytes % Eosinophils % Neutrophils # (Manual) Metamyelocytes Nucleated RBCs Differential Comment Toxic Granulation Toxic Vacuolation Dohle Bodies Platelet Estimate Plt Morphology Comment Target Cells Tear Drop Cells [place] Cells RBC Morph Comment PT INR APTT Fibrinogen Puncture Site Patient Temperature HCO3 Base Excess O2 Saturation ABG pH ABG pCO2 ABG pO2 ABG O2 Content ABG Carboxyhemoglobin ABG Methemoglobin Hemoglobin O2 Delivery Device Vent Setting Inspired O2 Sodium 134 L 132 L Potassium 3.6 4.0 Chloride 91 L 90 L Carbon Dioxide 22.6 24.1 Anion Gap 20 H 18 H BUN 62 H 67 H Creatinine 3.45 H 3.79 H Estimated GFR 19 L 17 L POC Glucose 250 H Random Glucose 205 H 229 H Serum Osmolality Lactic Acid Calcium 6.2 L* 6.2 L* Prot Corrected Calcium 7.4 L* 7.5 L Phosphorus 4.4 Magnesium 1.8 Iron TIBC % Saturation Ferritin Total Bilirubin 4.6 H AST 486 H ALT 118 H Alkaline Phosphatase 163 H Ammonia Total Creatine Kinase CK-MB (CK-2) CK-MB (CK-2) % Troponin I Total Protein 4.6 L 4.4 L Albumin 1.1 L Prealbumin 4 L Mxfjq-1-Rzqgimwmknv Amylase Lipase Tumor Marker AFP TSH 3rd Generation Urine Color Urine Turbidity Urine pH Ur Specific [place] Urine Protein Urine Glucose (UA) Urine Ketones Urine Occult Blood Urine Nitrite Urine Bilirubin Urine Urobilinogen Ur Leukocyte Esterase Urine RBC Urine WBC Urine Bacteria Micro UA Comment Urine Osmolality Ur Random Creatinine Ur Random Sodium Pleural pH Pleural WBC Pleural RBC Pleural Neutrophils Pleural Lymphocytes Pleural Monocytes Pleural Fluid Comment Pleural Total Protein Pleural LDH Pleural Glucose Nasal Screen MRSA (PCR) Random Vancomycin Salicylates Urine Opiates Screen Acetaminophen Ur Barbiturates Screen Ur Amphetamines Screen U Benzodiazepines Scrn Urine Cocaine Screen U Cannabinoids Screen Ethyl Alcohol GARY Screen Hepatitis A IgM Ab Hep Bs Antigen Hep B Core IgM Ab Hep C IgG Ab HIV 1&2 Ab/P24 Ag 4thGn 02/06/18 02/06/18 12:50 16:23 WBC RBC Hgb Hct MCV MCH MCHC RDW Plt Count MPV Neut % (Auto) Lymph % (Auto) [place] % (Auto) Eos % (Auto) Baso % (Auto) Neut # (Auto) Lymph # (Auto) [place] # (Auto) Eos # (Auto) Baso # (Auto) CBC Comment Total Counted Neutrophils % (Manual) Band Neutrophils % Lymphocytes % Monocytes % Eosinophils % Neutrophils # (Manual) Metamyelocytes Nucleated RBCs Differential Comment Toxic Granulation Toxic Vacuolation Dohle Bodies Platelet Estimate Plt Morphology Comment Target Cells Tear Drop Cells Check Cells RBC Morph Comment PT INR APTT Fibrinogen Puncture Site Patient Temperature HCO3 Base Excess O2 Saturation ABG pH ABG pCO2 ABG pO2 ABG O2 Content ABG Carboxyhemoglobin ABG Methemoglobin Hemoglobin O2 Delivery Device Vent Setting Inspired O2 Sodium 138 Potassium 3.4 L Chloride 99 D Carbon Dioxide 20.5 L Anion Gap 19 H BUN 60 H Creatinine 3.34 H Estimated GFR 19 L POC Glucose 171 H Random Glucose 216 H Serum Osmolality Lactic Acid Calcium 5.2 L* D Prot Corrected Calcium 6.7 L* D Phosphorus Magnesium Iron TIBC % Saturation Ferritin Total Bilirubin AST ALT Alkaline Phosphatase Ammonia Total Creatine Kinase CK-MB (CK-2) CK-MB (CK-2) % Troponin I Total Protein 3.6 L D Albumin Prealbumin Ltypu-4-Dubwtsquxqu Amylase Lipase Tumor Marker AFP TSH 3rd Generation Urine Color Urine Turbidity Urine pH Ur Specific [place] Urine Protein Urine Glucose (UA) Urine Ketones Urine Occult Blood Urine Nitrite Urine Bilirubin Urine Urobilinogen Ur Leukocyte Esterase Urine RBC Urine WBC Urine Bacteria Micro UA Comment Urine Osmolality Ur Random Creatinine Ur Random Sodium Pleural pH Pleural WBC Pleural RBC Pleural Neutrophils Pleural Lymphocytes Pleural Monocytes Pleural Fluid Comment Pleural Total Protein Pleural LDH Pleural Glucose Nasal Screen MRSA (PCR) Random Vancomycin Salicylates Urine Opiates Screen Acetaminophen Ur Barbiturates Screen Ur Amphetamines Screen U Benzodiazepines Scrn Urine Cocaine Screen U Cannabinoids Screen Ethyl Alcohol GARY Screen Hepatitis A IgM Ab Hep Bs Antigen Hep B Core IgM Ab Hep C IgG Ab HIV 1&2 Ab/P24 Ag 4thGn <Olena Reed - Last Filed: 02/06/18 16:59> Assessment and Plan (1) Anemia Status: Acute Code(s): D64.9 - Anemia, unspecified (2) Leukocytosis Status: Acute Code(s): D72.829 - Elevated white blood cell count, unspecified (3) Cholelithiasis Status: Acute Code(s): K80.20 - Calculus of gallbladder without cholecystitis without obstruction - Plan 02/06/2018 , 57-year-old critically ill male currently being managed in the intensive care setting intubated with FiO2 40% and currently today's receiving regular dialysis. Patient was found down at home and was last seen normal 5 days before admission. He is some on pressors, currently has sinus tachycardia with PACs heart rate 113. History of SVT this admission EtOH abuse elevated LFTs and bilirubin on admission CT scan showed 2 calcifications in the expected region of the distal common bile duct or pancreatic head measuring 3 mm questionable Choledocholithiasis initial consult suggested considering biliary tube and MRCP when stable. Transaminitis and hyper bilirubinemia, initial labs show AFP 0.8 normal iron saturation but high iron level, GARY negative, ammonia level less than 10. History of EtOH abuse, positive for barbiturates and cannabis. Thrombocytopenia secondary to above Current labs show leukocytosis increased to 24.5, hemoglobin 11.7, INR 1.1, nonreactive hepatitis panel Currently patient continues to be critical ill, with multi organ involvement . no family present Dependent on patient's progress consider PEG in the future and nutritional feedings Plan OG tube, no feedings present. Monitor labs and monitor for any acute bleeding Possible consider Jermaine tube and ERCP when stable, currently remains unstable Supportive care Further recommendations to follow we will continue to monitor this patient Patient was seen per myself and Dr Reed, this note was written on his behalf <Brittany Willard - Last Filed: 02/06/18 15:14> (1) Anemia Status: Acute Code(s): D64.9 - Anemia, unspecified (2) Leukocytosis Status: Acute Code(s): D72.829 - Elevated white blood cell count, unspecified (3) Cholelithiasis Status: Acute Code(s): K80.20 - Calculus of gallbladder without cholecystitis without obstruction - Attending Attestation Seen and examined with [facility]URSE, no bleeding. Monitor labs The exam, history, and the medical decision-making described in the above note were completed with the assistance of the mid-level provider. I reviewed and agree with the findings presented. I attest that I had a [id number] encounter with the patient on the same day, and personally performed and documented my assessment and findings in the medical record. <lOena Reed - Last Filed: 02/06/18 16:59>
[2018-02-06] MEDS ORDERED: SODIUM CHLOR 0.9% IV.SIG ONE (16:00)
[2018-02-06] MEDS ORDERED: CALCIUM CHLORIDE IV.SIG ONE (16:00)
[2018-02-06] MEDS ORDERED: Adenosine Inj 6 MG/2 ML Syringe IV.PUSH ONE (16:54)
--- NOTE | 2018-02-06 16:59 | P.PNID ---
Subjective Remarks: ID COVERAGE Most of the history of optimal review of medical records. is a 57-year-old male with very strong current history of alcohol abuse. His brother and hdumjx-sa-msa were in the room report that he drinks greater than a pint for at least 25 years. Patient is a resident of [place] and reportedly moved here to be close to his brother. [facility]. Patient's brother reports that they often go to patient's house for safety checks. The last time he was reportedly normal was 5 days prior to him coming to the hospital. When patient' s brother went to visit him on the day of admission patient was markedly obtunded and difficult to arouse and had some matting of his eyelids and brother called EMS reportedly. When patient was seen by EMS she was found to be significantly encephalopathic and there was a concern for airway protection and therefore he was intubated for acute hypoxemia and hypercarbia. Reportedly was also an SVT with a heart rate greater than 200. In the emergency department he was cardioverted and was hypotensive requiring pressors. Patient was admitted to the ICU under critical care team. Patient is currently on vasopressors Larry-Synephrine at 100 mics, he is also on a propofol drip for sedation. He is currently on a ventilator with AC 50% FiO2, PEEP of 5 not much respiratory secretions noted. He also has a right-sided chest tube which was placed when a large effusion was noted on the CT scan. Per description by RN there was a lot of yellow looking purulent material noted when the chest tube was placed. Urology has been consulted because Ennis was difficult to be placed. Patient does not have much in terms of her urine output and is currently at 50 cc. GI is following patient as well. Sepsis workup was initiated on admission infectious diseases consulted for evaluation and management of septic shock secondary to possibly right-sided empyema. Notes reviewed Discussed with LACI butts On neosynephrine Had HD today All blood cultures with staph aureus, MSSA Pleural fluid with staph aureus, MSSA Urine culture with MSSA Sputum with Pseudomonas, E coli and MSSA Has a large hemorrhagic bullous lesion L palm Antibiotics: Teflaro Zerbaxa Lines: RIJ Vascath L TLC Past Medical History: Diabetes Hypertension Significant EtOH history some shoulder surgery Allergies/Adverse Reactions: Allergies lisinopril Allergy (Severe, Verified 02/05/18 06:22) airway edema Sulfa (Sulfonamide Antibiotics) Allergy (Severe, Verified 02/05/18 06:22) Edema, Localized AIRWAY EDEMA Objective Vital Signs Temp Pulse Resp BP Pulse Ox 02/06/18 16:04 18 02/06/18 16:02 108 H 18 02/06/18 12:12 18 02/06/18 12:00 109 H 18 110/61 94 L 02/06/18 11:00 107 H 13 109/59 L 93 L 02/06/18 10:00 107 H 18 114/61 94 L 02/06/18 09:00 104 H 18 116/59 L 93 L 02/06/18 08:43 103 H 18 98/55 L 94 L 02/06/18 08:36 103 H 18 94 L 02/06/18 08:00 103 H 18 120/64 94 L 02/06/18 07:00 100.1 F H 101 H 11 L 127/59 L 94 L 02/06/18 06:00 101 H 6 L 105/64 94 L 02/06/18 05:00 104 H 14 106/57 L 93 L 02/06/18 04:00 107 H 2 L 110/57 L 93 L 02/06/18 03:24 107 H 18 82/60 L 95 02/06/18 03:03 18 94 L 02/06/18 03:00 104 H 18 99/57 L 93 L 02/06/18 02:00 108 H 18 93/53 L 93 L 02/06/18 01:00 102 H 18 101/55 L 93 L 02/06/18 00:05 166 H 18 93 L Intake and Output 02/06/18 02/06/18 02/06/18 06:59 14:59 22:59 Intake Total 520 / 520 1050 / 1050 750 / 750 Output Total 270 / 270 2500 / 2500 Balance 250 / 250 1050 / 1050 -1750 / -1750 Intake: IV 520 / 520 1050 / 1050 750 / 750 Neosynephrine Inj 40 MG In D5W 500 / 500 500 / 500 Inj 496 ML @ 40 MCG/MIN 30 mls/ hr IV.CONT TITRATE PRN Rx#: [id number] fentaNYL 10 mcg/mL Premix Drip 250 / 250 2,500 mcg In 250 ml @ 50 MCG/HR 5 mls/hr IV.CONT TITRATE PRN Rx#:[id number] Cordarone Inj 450 MG In NS Inj 250 / 250 241 ML @ 0.5 MG/MIN 16.66 mls/ hr IV.SIG .Q15H1M [facility] Rx#: [id number] Calcium Chloride Inj 2 GM In NS 120 / 120 Inj 100 ML @ 120 mls/hr IV.SIG ONCE ONE Rx#:[id number] Teflaro Inj 300 MG In NS Inj 100 / 100 100 ML @ 100 mls/hr IV.SIG Q12HR [facility] Rx#:[id number] Zerbaxa Inj 375 MG In NS Inj 100 / 100 100 ML @ 100 mls/hr IV.SIG Q8HR [facility] Rx#:[id number] Magnesium Sulfate 1 gm/D5W 100 100 / 100 ml Premix 100 ML @ 100 mls/hr IV.SIG ONCE ONE Rx#:[id number] KCl 20 mEq Premix Inj 20 meq In 100 / 100 100 ml @ 50 mls/hr IV.SIG ONCE ONE Rx#:[id number] Flagyl 500 MG Inj 100 ML @ 100 200 / 200 100 / 100 mls/hr IV.SIG Q6H [facility] Rx#: [id number] Output: Urine 30 / 30 Hemodialysis Amount 2500 / 2500 Gastric Drainage 230 / 230 Orogastric Tube 230 / 230 Chest Tube Drainage #1 Right Anterior Other: Weight 101 kg Intake & Output 02/05/18 02/06/18 02/06/18 18:59 06:59 18:59 Intake Total 520 / 520 1800 / 1800 Output Total 270 / 270 2500 / 2500 Balance 250 / 250 -700 / -700 Weight 101 kg Intake: IV 520 / 520 1800 / 1800 Neosynephrine Inj 40 MG In D5W 1000 / 1000 Inj 496 ML @ 40 MCG/MIN 30 mls/ hr IV.CONT TITRATE PRN Rx#: [id number] fentaNYL 10 mcg/mL Premix Drip 250 / 250 2,500 mcg In 250 ml @ 50 MCG/HR 5 mls/hr IV.CONT TITRATE PRN Rx#:[id number] Cordarone Inj 450 MG In NS Inj 250 / 250 241 ML @ 0.5 MG/MIN 16.66 mls/ hr IV.SIG .Q15H1M [facility] Rx#: [id number] Calcium Chloride Inj 2 GM In NS 120 / 120 Inj 100 ML @ 120 mls/hr IV.SIG ONCE ONE Rx#:[id number] Teflaro Inj 300 MG In NS Inj 100 / 100 100 ML @ 100 mls/hr IV.SIG Q12HR [facility] Rx#:[id number] Zerbaxa Inj 375 MG In NS Inj 100 / 100 100 ML @ 100 mls/hr IV.SIG Q8HR [facility] Rx#:[id number] Magnesium Sulfate 1 gm/D5W 100 100 / 100 ml Premix 100 ML @ 100 mls/hr IV.SIG ONCE ONE Rx#:[id number] KCl 20 mEq Premix Inj 20 meq In 100 / 100 100 ml @ 50 mls/hr IV.SIG ONCE ONE Rx#:[id number] Flagyl 500 MG Inj 100 ML @ 100 200 / 200 100 / 100 mls/hr IV.SIG Q6H [facility] Rx#: [id number] Output: Urine 30 / 30 Hemodialysis Amount 2500 / 2500 Gastric Drainage 230 / 230 Orogastric Tube 230 / 230 Chest Tube Drainage #1 Right Anterior 02/06/18 10:59 Blood - Peripheral Aerobic Blood Culture - Pending 02/06/18 10:59 Blood - Peripheral Anaerobic Blood Culture - Pending Lab - Hematology Results 02/02/18 02/03/18 02/04/18 16:22 04:15 04:55 WBC 3.4 L 3.6 L 14.4 H RBC 4.98 4.60 4.09 L Hgb 14.7 13.6 12.2 L Hct 44.2 40.4 36.0 L MCV 88.8 87.9 88.2 MCH 29.6 29.7 29.8 MCHC 33.3 33.8 33.8 RDW 15.9 16.2 16.1 Plt Count 50 L D 61 L 76 L MPV 11.3 H 11.5 H 10.8 Neut % (Auto) 92.4 H 93.9 H Lymph % (Auto) 4.4 L 3.0 L Gage % (Auto) 2.6 0.5 Eos % (Auto) 0.4 2.0 Baso % (Auto) 0.2 0.6 Neut # (Auto) 3.2 13.6 H Lymph # (Auto) 0.2 L 0.4 L Gage # (Auto) 0.1 0.1 Eos # (Auto) 0.0 0.3 Baso # (Auto) 0.0 0.1 CBC Comment AUTO DIFF AUTO DIFF Total Counted 100 100 Neutrophils % (Manual) 63 56 Band Neutrophils % 30 H 38 H Lymphocytes % 4 L Monocytes % 2 4 Eosinophils % 1 Neutrophils # (Manual) 3.2 13.8 H Metamyelocytes 2 H Nucleated RBCs 3 H Differential Comment FINAL DIFF MANUAL FINAL DIFF MANUAL Toxic Granulation 3+ H 1+ H Toxic Vacuolation PRESENT H Dohle Bodies PRESENT H PRESENT H Platelet Estimate LOW L LOW L Plt Morphology Comment NORMAL ENLARGED H Target Cells Tear Drop Cells Logan Cells 2+ H RBC Morph Comment NORMAL 02/05/18 02/06/18 01:30 03:40 WBC 18.0 H 24.5 H RBC 3.98 L 3.97 L Hgb 12.0 L 11.7 L Hct 34.5 L 35.0 L MCV 86.7 88.1 MCH 30.2 29.3 MCHC 34.8 33.3 RDW 16.8 17.0 Plt Count 69 L 66 L MPV 11.3 H 11.0 Neut % (Auto) Lymph % (Auto) Gage % (Auto) Eos % (Auto) Baso % (Auto) Neut # (Auto) Lymph # (Auto) Gage # (Auto) Eos # (Auto) Baso # (Auto) CBC Comment AUTO DIFF Total Counted 100 Neutrophils % (Manual) 71 H Band Neutrophils % 20 H Lymphocytes % 1 L Monocytes % 3 Eosinophils % Neutrophils # (Manual) 17.3 H Metamyelocytes 5 H Nucleated RBCs Differential Comment FINAL DIFF MANUAL Toxic Granulation 1+ H Toxic Vacuolation PRESENT H Dohle Bodies PRESENT H Platelet Estimate LOW L Plt Morphology Comment ENLARGED H Target Cells 1+ H Tear Drop Cells 3+ H Logan Cells RBC Morph Comment Lab - Chemistry Results 02/02/18 02/02/18 02/02/18 16:22 16:22 16:22 Sodium 133 L Potassium 3.4 L Chloride 96 L Carbon Dioxide 10.9 L Anion Gap 26 H BUN 81 H Creatinine 5.71 H Estimated GFR 10 L POC Glucose Random Glucose 142 H Serum Osmolality Lactic Acid Calcium 5.8 L* Prot Corrected Calcium 6.5 L* Phosphorus Magnesium Iron TIBC % Saturation Ferritin Total Bilirubin 1.7 H AST 1685 H ALT 307 H Alkaline Phosphatase 66 Ammonia LESS THAN 10 L Total Creatine Kinase 1286 H CK-MB (CK-2) 8.6 H CK-MB (CK-2) % 0.7 Troponin I 0.03 Total Protein 5.4 L D Albumin 1.8 L Prealbumin LESS THAN 3 L Bcgzx-2-Rxzhnricdqh Amylase Lipase Tumor Marker AFP TSH 3rd Generation 1.610 02/02/18 02/02/18 02/02/18 16:22 17:14 21:30 Sodium 138 Potassium Chloride Carbon Dioxide Anion Gap BUN Creatinine Estimated GFR POC Glucose Random Glucose Serum Osmolality 304 H Lactic Acid 6.5 H* Calcium Prot Corrected Calcium Phosphorus Magnesium Iron TIBC % Saturation Ferritin Total Bilirubin AST ALT Alkaline Phosphatase Ammonia Total Creatine Kinase 1596 H CK-MB (CK-2) 8.8 H CK-MB (CK-2) % 0.6 Troponin I 0.04 Total Protein Albumin Prealbumin Lykcr-9-Xvhdjqexaec Amylase Lipase Tumor Marker AFP TSH 3rd Generation 02/02/18 02/03/18 02/03/18 21:30 04:15 04:15 Sodium 136 Potassium 3.4 L Chloride 97 L Carbon Dioxide 15.5 L Anion Gap 24 H BUN 85 H Creatinine 5.55 H Estimated GFR 11 L POC Glucose Random Glucose 121 H Serum Osmolality Lactic Acid 7.0 H* 6.6 H* Calcium 6.8 L* D Prot Corrected Calcium 7.9 L D Phosphorus 5.0 H Magnesium 2.0 Iron TIBC % Saturation Ferritin Total Bilirubin 2.4 H AST 1778 H ALT 294 H Alkaline Phosphatase 67 Ammonia Total Creatine Kinase 2164 H CK-MB (CK-2) 9.3 H CK-MB (CK-2) % 0.4 Troponin I 0.09 H Total Protein 4.9 L Albumin 1.4 L Prealbumin Xcdci-7-Rnmcvjmduvn Amylase Lipase Tumor Marker AFP TSH 3rd Generation 02/03/18 02/03/18 02/03/18 12:00 12:22 13:50 Sodium 136 133 L Potassium 4.1 Chloride 92 L Carbon Dioxide 17.4 L Anion Gap 24 H BUN 91 H Creatinine 5.85 H Estimated GFR 10 L POC Glucose Random Glucose 133 H Serum Osmolality Lactic Acid 7.8 H* Calcium 6.5 L* Prot Corrected Calcium 7.6 L Phosphorus Magnesium Iron TIBC % Saturation Ferritin Total Bilirubin AST ALT Alkaline Phosphatase Ammonia Total Creatine Kinase 2688 H CK-MB (CK-2) 9.5 H CK-MB (CK-2) % 0.4 Troponin I 0.10 H Total Protein 4.9 L Albumin Prealbumin Wphip-8-Objwkbjekgk Amylase Lipase Tumor Marker AFP TSH 3rd Generation 02/03/18 02/03/18 02/03/18 15:45 15:45 15:45 Sodium Potassium Chloride Carbon Dioxide Anion Gap BUN Creatinine Estimated GFR POC Glucose Random Glucose Serum Osmolality Lactic Acid Calcium Prot Corrected Calcium Phosphorus Magnesium Iron TIBC % Saturation Ferritin Total Bilirubin AST ALT Alkaline Phosphatase Ammonia LESS THAN 10 L Total Creatine Kinase CK-MB (CK-2) CK-MB (CK-2) % Troponin I Total Protein Albumin Prealbumin Hpngu-2-Gwmtblszzwz 433 H Amylase Lipase Tumor Marker AFP 0.8 TSH 3rd Generation 02/04/18 02/04/18 02/04/18 04:55 04:55 12:46 Sodium 131 L 130 L Potassium 4.0 3.9 Chloride 86 L 84 L Carbon Dioxide 20.4 L 27.1 Anion Gap 25 H 19 H BUN 93 H 97 H Creatinine 5.87 H 5.78 H Estimated GFR 10 L 10 L POC Glucose Random Glucose 218 H 193 H Serum Osmolality Lactic Acid 6.2 H* Calcium 5.9 L* 5.5 L* Prot Corrected Calcium 7.2 L* 6.7 L* D Phosphorus 8.0 H D Magnesium 1.8 Iron 30 L TIBC 126 L % Saturation 23.8 Ferritin 2246 H Total Bilirubin 3.8 H AST 1034 H ALT 184 H Alkaline Phosphatase 89 Ammonia Total Creatine Kinase 3357 H 3765 H CK-MB (CK-2) 13.8 H 12.6 H CK-MB (CK-2) % 0.4 0.3 Troponin I Total Protein 4.4 L 4.3 L Albumin 1.2 L Prealbumin Yqvoe-4-Fyhdfvaesxe Amylase 49 Lipase 102 Tumor Marker AFP TSH 3rd Generation 02/05/18 02/05/18 02/05/18 01:30 01:30 01:30 Sodium Cancelled 130 L Potassium Cancelled 3.5 Chloride Cancelled 86 L Carbon Dioxide Cancelled 29.1 Anion Gap Cancelled 15 BUN Cancelled 83 H D Creatinine Cancelled 4.35 H D Estimated GFR Cancelled 14 L POC Glucose Random Glucose Cancelled 180 H Serum Osmolality Lactic Acid 3.2 H Calcium Cancelled 5.1 L* Prot Corrected Calcium 6.2 L* D Phosphorus 4.7 D Magnesium 1.6 Iron TIBC % Saturation Ferritin Total Bilirubin 4.2 H AST 729 H ALT 145 H Alkaline Phosphatase 125 H Ammonia Total Creatine Kinase CK-MB (CK-2) CK-MB (CK-2) % Troponin I Total Protein 4.4 L Albumin 1.2 L Prealbumin Ztwmf-7-Vdrxmvkosnx Amylase Lipase Tumor Marker AFP TSH 3rd Generation 02/05/18 02/06/18 02/06/18 21:00 03:40 08:00 Sodium 133 L 134 L 132 L Potassium 3.7 3.6 4.0 Chloride 89 L 91 L 90 L Carbon Dioxide 23.6 22.6 24.1 Anion Gap 20 H 20 H 18 H BUN 57 H D 62 H 67 H Creatinine 2.98 H D 3.45 H 3.79 H Estimated GFR 22 L 19 L 17 L POC Glucose Random Glucose 187 H 205 H 229 H Serum Osmolality Lactic Acid Calcium LESS THAN 5.0 L* 6.2 L* 6.2 L* Prot Corrected Calcium 7.4 L* 7.5 L Phosphorus 4.4 Magnesium 1.8 Iron TIBC % Saturation Ferritin Total Bilirubin 4.6 H AST 486 H ALT 118 H Alkaline Phosphatase 163 H Ammonia Total Creatine Kinase CK-MB (CK-2) CK-MB (CK-2) % Troponin I Total Protein 4.6 L 4.4 L Albumin 1.1 L Prealbumin 4 L Fxbxx-3-Llzhrfzsril Amylase Lipase Tumor Marker AFP [facility] 3rd Generation 02/06/18 02/06/18 02/06/18 10:24 12:50 16:23 Sodium 138 Potassium 3.4 L Chloride 99 D Carbon Dioxide 20.5 L Anion Gap 19 H BUN 60 H Creatinine 3.34 H Estimated GFR 19 L POC Glucose 250 H 171 H Random Glucose 216 H Serum Osmolality Lactic Acid Calcium 5.2 L* D Prot Corrected Calcium 6.7 L* D Phosphorus Magnesium Iron TIBC % Saturation Ferritin Total Bilirubin AST ALT Alkaline Phosphatase Ammonia Total Creatine Kinase CK-MB (CK-2) CK-MB (CK-2) % Troponin I Total Protein 3.6 L D Albumin Prealbumin Lizcb-5-Jlipxwnfwqv Amylase Lipase Tumor Marker AFP [facility] 3rd Generation Imaging: Chest X-Ray 02/04/18 0000 Signed Impressions: CONCLUSION: 1. Right IJ temporary dialysis catheter in good position. No pneumothorax. 2. Stable ETT and NGT. 3. Stable right-sided chest tube with minimal residual pleural-parenchymal opa cities in the right lung base. Chest CT 02/03/18 Signed Impressions: CONCLUSION: 1. There is a large right pleural effusion which extends up to the lateral ape x, measures in excess of 5 cm in width and with possible loculation. 2. Consolidation and volume loss in the right lower and right middle lobe. 3. Patchy areas of infiltrate scattered throughout the left lung, subsegmental . Abdomen/Pelvis CT 02/03/18 Signed Impressions: CONCLUSION: 1. Moderate-sized right pleural effusion. 2. Two calcifications in the expected region of the distal common bile duct or pancreatic head measuring 3 mm each. Correlation with alkaline phosphatase and bilirubin levels is suggested to rule out biliary obstruction. 3. Bibasilar atelectasis and/or infiltrates which are slightly worse on the ri ght than the left. 4. Cardiomegaly. 5. Left adrenal nodule measuring 2.6 x 2.3 cm consistent with probable adrenal adenoma or cyst. 6. Small amount of ascites. 7. Probable 2.3 cm right renal cyst. Head CT 02/02/181613 Signed Impressions: CONCLUSION: Negative noncontrasted CT examination. Renal Ultrasound 02/02/18 Signed Impressions: CONCLUSION: 1. Right renal cyst. 2. Small right pleural effusion. 3. No hydronephrosis. Physical Exam: Physical Exam GENERAL: Sedated, on the vent, NAD SKIN: Cool and dry, no generalized rash HEAD: Atraumatic. Normocephalic. No temporal or scalp tenderness. EYES: Pupils equal round and reactive. Scleral icterus. No injection or drainage. No petechia ENT: Orally intubated NECK: Trachea midline. Supple, nontender, no meningeal signs. CARDIOVASCULAR: HS audible. RESPIRATORY: AE decreased in the bases R>L. Right side CT with serous fluid noted GASTROINTESTINAL: Abdomen distended, some grimacing during palpation MUSCULOSKELETAL: Extremities without clubbing, cyanosis. Mild pedal edema. Both feet are cool to touch. Has a large hemorrhagic bullous lesion on L palm NEUROLOGICAL: Sedated Psych could not be assessed IV line sites ok. Assessment and Plan - Plan IMPRESSION MSSA sepsis, Septic Shock, on pressors Right side Pulm Empyema, MSSA Rule out endocarditis. Polymicrobial PNA ( PSAE, second GNR, Staph aureus) also likely aspiration in setting of alcoholism Cardiomegaly: ? alcohol related vs CAD. MSSA in urine. Acute resp failure on vent Acute oliguric renal failure: prerenal, sepsis. - on CVVHD Acute metabolic encephalopathy: sepsis, metabolic. Leukocytosis Thrombocytopenia: sepsis, no DIC RECOMMENDATION Change to Oxacillin for MSSA Cefepime for PSAE and E coli Continue Flagyl for aspiration PNA Repeat BC to document clearing Follow cultures Monitor progress Repeat CXR D/W RN
[2018-02-06] MEDS: Vasopressin Inj 40 UNIT in Dextrose 5% in Water Inj 98 ML IV.CONT SCH ×2 (17:40)
[2018-02-06 19:22] LABS: Carbon Dioxide 28.5 meq/L (21.0-32.0); Potassium 3.7 meq/L (3.5-5.1)
[2018-02-06 20:08] LABS: Calcium-Albumin Corrected 8.5 mg/dL (8.5-10.1); Total Protein 4.4 g/dL (6.4-8.2)
[2018-02-06 20:09] LABS: Magnesium 2.1 mg/dL (1.5-2.5); Phosphorus 2.9 mg/dL (2.5-4.9)
[2018-02-06] MEDS ORDERED: Calcium Gluconate Inj 1 GM in Sodium Chlor 0.9% Inj 90 ML IV.SIG SCH (22:00)
[2018-02-06] MEDS: CALCIUM CHLORIDE IV.SIG SCH (22:30)
[2018-02-06 23:40] LABS: Calcium 6.8 mg/dL (8.5-10.1); Potassium 3.8 meq/L (3.5-5.1)
[2018-02-07 00:03] LABS: Calcium-Albumin Corrected 8.2 mg/dL (8.5-10.1); Total Protein 4.4 g/dL (6.4-8.2)
[2018-02-07] MEDS: Insulin NovoLIN Regular Correctional Sugar Inj SQ SCH ×5 (01:12→21:29)
[2018-02-07] MEDS: CALCIUM CHLORIDE IV.SIG SCH (03:08)
[2018-02-07] MEDS: SODIUM CHLOR 0.9% IV.SIG SCH (03:08)
[2018-02-07] MEDS: Chlorhexidine Gluconate 2% 1 Pack (2 Cloths) TOPICAL SCH (03:09)
[2018-02-07] MEDS: fentaNYL 10 mcg/mL Premix Drip 2,500 MCG/250 ML BAG IV.CONT PRN ×2 (03:11→11:29)
--- NOTE | 2018-02-07 03:26 | XR ---
EXAM DATE: 02/07/2018 3:22 AM EDT AGE/SEX: 57 years / Male INDICATIONS: Short of breath. CLINICAL DATA: This is the patient's subsequent encounter. Patient reports that signs and symptoms h ave been present for 4 - 6 days and indicates a pain score of 0/10. MEDICAL/SURGICAL HISTORY: Diabetes mellitus type II. Hypertension. Non-responsive. [place] [facility] [place]. . FINDINGS: ET tube tip 2.4 cm above the ayala. Gastric tube tip projects in the stomach. Right IJ catheter tip projects in the right atrium. Interval development of areas of consolidation in the left lower lung w ith loss of delineation left hemidiaphragm. The right lung remains clear. The heart is normal in size . CONCLUSION: 1. Lines and tubes stable. 2. Interval development of left lower lung consolidation. Electronically signed by: Leoncio Geller MD 02/07/2018 3:25 AM EDT
[2018-02-07 06:11] LABS: Hemoglobin 10.2 gm/dL (13.0-17.0); Mean Corpuscular HGB Conc 33.9 % (32.0-36.0); Mean Corpuscular Hemoglobin 29.8 pg (27.0-34.0); Mean Corpuscular Volume 87.9 fL (80.0-100.0); Mean Platelet Volume 11.1 fL (7.0-11.0); Platelet Count 32 th/mm3 (150-450); Red Blood Count 3.42 mil/mm3 (4.50-5.90); Red Cell Distribution Width 17.1 % (11.6-17.2)
[2018-02-07 07:00] LABS: Activated Partial Thrombo Time 32.4 sec (24.3-30.1); INR 1.1 Ratio; Prothrombin Time 11.1 sec (9.8-11.6)
[2018-02-07 07:08] LABS: Alanine Aminotransferase 76 U/L (12-78); Albumin 0.9 g/dL (3.4-5.0); Alkaline Phosphatase 164 U/L (45-117); Anion Gap 16 meq/L (5-15); Aspartate Aminotransferase 229 U/L (15-37); Blood Urea Nitrogen 59 mg/dL (7-18); Calcium 7.8 mg/dL (8.5-10.1); Carbon Dioxide 23.7 meq/L (21.0-32.0); Chloride 97 meq/L (98-107); Glomerular Filtration Rate 17 mL/min (>89); Glucose,Random 248 mg/dL (74-106); Magnesium 2.2 mg/dL (1.5-2.5); Phosphorus 5.4 mg/dL (2.5-4.9); Potassium 3.8 meq/L (3.5-5.1); Sodium 137 meq/L (136-145); Total Protein 4.3 g/dL (6.4-8.2)
[2018-02-07] MEDS: Pantoprazole Inj 40 MG Vial IV.PUSH SCH (08:02)
[2018-02-07] MEDS: Chlorhexidine 0.12% Oral Kit 15 ML UDC OROPHARYNG SCH ×2 (08:18→21:27)
--- NOTE | 2018-02-07 08:29 | P.PNCC ---
Subjective Subjective Remarks/Hospital Course: 02/05: This is a 57-year-old male with a strong history of EtOH abuse, his family states that he drinks greater than a pint today times at least 25 years. He was found unresponsive at home this afternoon. The last time he was seen normal was 5 days ago. He was brought in by EMS and was severely altered. He was intubated for acute hypoxemia and hypercarbia. He was also in a supraventricular tachycardia with a heart rate greater than 200. In the emergency department he was electrically cardioverted 2 without success, and given 5 mill grams of IV Lopressor which caused severe hypotension, but did not resolve his tachycardia. Immediately upon being notified went down to the emergency department evaluated the patient and transported him up to the intensive care unit. Once in the intensive care unit, I placed arterial and central lines, see separate procedure note for details. I loaded the patient with 150 mg of amiodarone and 2 g magnesium. In addition, the patient has a blood gas with severe metabolic acidosis and a pH less than 7.2. I gave 4 A of sodium bicarbonate as well as 1 g of calcium chloride for severe hypocalcemia. After these interventions, the patient spontaneously converted to a sinus tachycardia. The patient was placed on norepinephrine for persistent hypotension and shock. The emergency department attempted to place a 16 Turkmen Ennis catheter and was unsuccessful with this. I attempted an additional time to place both an 18 Turkmen coud catheter as well as a 24 Turkmen three-way catheter, both which were unsuccessful and met significant resistance at approximately 10-12 cm. I consulted urology and discussed the case with Dr. Worley who agrees to Place Ennis catheter tonight for emergent urine output monitoring while in shock. The patient remains altered no additional information is available from patient. ROS is unobtainable. 02/03 Patient is intubated on Levoped 5 mics, Amio and bicarb drips. 16Fr catheter was placed by Urology. 02/04 Patient remains intubated and sedated with Diprivan. Off Levophed on Neosyn 60mics. Right sided pig tail catheter placed yesterday with removal 1100ml cloudy fluid fluid analysis c/w empyema. Renal function declining with Cr: 5.87 and UOP 120ml in 12 hrs. Tmax 102.2 02/05: remains intubated and critically ill. on CVVHD. per RN, net -300/hr on CVVHD. off vasopressors this AM. 02/06: Remains sedated, orally intubated on mechanical ventilation. CRRT clotted off last night. Nephrology planning HD 02/07 Patient remains intubated and sedated with Fentanyl infusion. Off Neosyn remains on Vasopressin and Amio drip. T;102 last night. Objective Vital Signs / I&O: Vital Signs 02/06/18 08:36 02/06/18 08:43 02/06/18 09:00 Temperature Pulse Rate 103 H 103 H 104 H Respiratory Rate 18 18 18 Blood Pressure 98/55 L 116/59 L Pulse Oximetry 94 L 94 L 93 L 02/06/18 10:00 02/06/18 11:00 02/06/18 12:00 Temperature Pulse Rate 107 H 107 H 109 H Respiratory Rate 18 13 18 Blood Pressure 114/61 109/59 L 110/61 Pulse Oximetry 94 L 93 L 94 L 02/06/18 12:12 02/06/18 13:00 02/06/18 14:00 Temperature Pulse Rate 110 H 111 H Respiratory Rate 18 18 18 Blood Pressure 108/55 L 102/60 Pulse Oximetry 93 L 94 L 02/06/18 15:00 02/06/18 16:00 02/06/18 16:02 Temperature Pulse Rate 105 H 106 H 108 H Respiratory Rate 18 18 18 Blood Pressure 103/62 100/62 Pulse Oximetry 96 96 02/06/18 16:04 02/06/18 17:00 02/06/18 17:10 Temperature Pulse Rate 100 H 171 H Respiratory Rate 18 18 Blood Pressure 103/63 Pulse Oximetry 94 L 02/06/18 18:00 02/06/18 19:00 02/06/18 19:53 Temperature Pulse Rate 101 H 100 H 100 H Respiratory Rate 18 18 18 Blood Pressure 127/61 124/63 Pulse Oximetry 94 L 93 L 99 02/06/18 20:00 02/06/18 21:00 02/06/18 22:00 Temperature 102 F H Pulse Rate 100 H 99 H 170 H Respiratory Rate 18 18 18 Blood Pressure 141/67 H 139/64 108/59 L Pulse Oximetry 96 94 L 90 L 02/06/18 23:00 02/07/18 00:00 02/07/18 02:00 Temperature Pulse Rate 91 H 152 H 134 H Respiratory Rate 18 18 Blood Pressure 130/61 117/59 L Pulse Oximetry 93 L 94 L 02/07/18 03:47 02/07/18 04:00 02/07/18 06:00 Temperature 97.7 F Pulse Rate 146 H 141 H Respiratory Rate 18 18 Blood Pressure 125/68 Pulse Oximetry 95 Intake & Output 02/06/18 02/07/18 02/07/18 18:59 06:59 18:59 Intake Total 1999 850 / 850 Output Total 2500 / 2500 360 / 360 Balance -500 / -500 490 / 490 Weight 101 kg Intake: IV 1999 850 / 850 Neosynephrine Inj 40 MG In D5W 1000 / 1000 Inj 496 ML @ 40 MCG/MIN 30 mls/ hr IV.CONT TITRATE PRN Rx#: [id number] fentaNYL 10 mcg/mL Premix Drip 250 / 250 250 / 250 2,500 mcg In 250 ml @ 50 MCG/HR 5 mls/hr IV.CONT TITRATE PRN Rx#:[id number] Cordarone Inj 450 MG In NS Inj 250 / 250 241 ML @ 0.5 MG/MIN 16.66 mls/ hr IV.SIG .Q15H1M LEROY Rx#: [id number] Calcium Chloride Inj 1 GM In NS 100 / 100 100 / 100 Inj 90 ML @ 100 mls/hr IV.SIG Q6H LEROY Rx#:[id number] Maxipime Inj 2,000 MG In NS Inj 100 / 100 100 ML @ 200 mls/hr IV.SIG Q24H LEROY Rx#:[id number] Teflaro Inj 300 MG In NS Inj 100 / 100 100 ML @ 100 mls/hr IV.SIG Q12HR LEROY Rx#:[id number] Prostaphlin Inj 2 GM In NS Inj 300 / 300 100 ML @ 200 mls/hr IV.SIG Q4H LEROY Rx#:[id number] KCl 20 mEq Premix Inj 20 meq In 100 / 100 100 ml @ 50 mls/hr IV.SIG ONCE ONE Rx#:[id number] Flagyl 500 MG Inj 100 ML @ 100 200 / 200 100 / 100 mls/hr IV.SIG Q6H LEROY Rx#: [id number] Oral 0 / 0 Output: Urine 0 / 0 Hemodialysis Amount 2500 / 2500 Urine Amount (Catheter) 60 / 60 Coude 60 / 60 Gastric Drainage 300 / 300 Orogastric Tube 300 / 300 Chest Tube Drainage 0 / 0 0 / 0 #1 Right Anterior 0 / 0 0 / 0 Other: # Bowel Movements 0 Result Diagrams: 02/07/18 05:44 02/07/18 05:44 Objective Remarks: Objective Remarks GENERAL: Patient is 57 yo intubated and sedated. SKIN: Warm and dry. HEAD: Normocephalic. EYES: No scleral icterus. No injection or drainage. NECK: Supple, trachea midline. No JVD. CARDIOVASCULAR: Regular rate and rhythm. sinus. RESPIRATORY: Breath sounds equal bilaterally. No accessory muscle use. GASTROINTESTINAL: Abdomen soft, non-tender, nondistended. MUSCULOSKELETAL: No cyanosis, or edema. Neuro: Intubated Assessment and Plan - Assessment and Plan Plan: A/P Assessment and Plan Assessment: 57-year-old male with strong EtOH history found unresponsive at home who has severe metabolic derangements, multiorgan system dysfunction, acute rhabdomyolysis, and acute shock, likely combination of hypovolemic and septic, present on admission. Likely sources would be aspiration pneumonia or urinary tract infection. Remains very critically ill. Plan by systems: Neurologic: Acute metabolic encephalopathy etoh abuse Likely secondary to EtOH abuse Monitor neuro status, on Thiamine/MVI/ On Fentanyl infusion for sedation. Daily sedation vacation CT brain : No acute process on 02/02 Respiratory: Acute hypoxic and hypercarbic respiratory failure Right sided empyema Continue with vent support keep sats >92% Bronchodilates, ICU vent bundle. s/p right pigtail catheter placement 02/03 Pleural fluid analysis c/w empyema, monitor CT drainage. CXR post CT placement showed significant improvement on right. Cardiovascular: Mixed hypovolemic and septic shock Atrial fibrillation with rapid ventricular response Off Neosy, remians on Vasopressin. Monitor HR and BP keep MAP>65mmHg Status post 5 L crystalloid resuscitation in the emergency department Serial lactic acid monitoring till clear. Echo showed EF 60-65%, no RWMA Renal: Acute kidney injury-severe Acute rhabdomyolysis Obstructive uropathy BPH Monitor renal function, I/O's, avoid nephrotoxins Urology is following- s/p 16Fr Ennis catheter placement Renal is following- Dr. Dinh. Was on CRRT which clotted, Nephrology planning HD FEN/GI: Elevated LFT's with hyperbilirubinemia Acute protein calorie malnutrition: S orogastric tube to low intermittent wall suction Ammonia level <10 on 02/02 Hepatitis profile: Non reactive, Heme/ID: Coagulopathy, probably secondary to end-stage liver disease Thrombocytopenia, secondary to shock Leukopenia, secondary septic shock On Cefepime, Oxacillin and Flagyl per ID Monitor for signs of infections ( Fever, WBC) follow up on cultures from 02/02 02/02 Sputum cx: GNR 02/02 Urine cx: Staph Aureus 02/03 BC: GPC 08/12 bottles 02/03 Fluid cx: NGTD HIV ab: non reactive Monitor CBC, coags Endocrine: Hyperglycemia of critical illness -- SSI, TSH 1.6 Prophylaxis: GI Prophylaxis Protonix IV DVT Prophylaxis -- SCDs - Subcu heparin on hold for thrombocytopenia Consult palliative care to asses with goals of care Condition critical Time spent on critical care excluding procedures 30 minutes
[2018-02-07] MEDS: Heparin 10,000 UNITS/10 ML Vial (for IV use) OTHER PRN (08:49)
[2018-02-07] MEDS: Amiodarone Inj 450 MG in Sodium Chlor 0.9% Inj 241 ML IV.SIG SCH (10:17)
--- NOTE | 2018-02-07 10:46 | P.CONPAL ---
Consult Service: Palliative Care Requesting Physician: Manny So Reason for Consult: a. To assist with evaluation and management of symptoms including: pain, anxiety b. To assist medical decision maker(s) with: better understanding of current medical conditions; weighing benefits/burdens of medical treatment options; making medical treatment decisions. Primary Care Provider: Physician [facility] Admin [facility] History of Present Illness History of Present Illness: 57-year-old who came in to the hospital on 02/02/2018 with irregular complex tachycardia via EMS. It has been documented that patient has been drinking alcohol about 1-1.5 L of vodka every 3 days for about 2 weeks. Patient's brother has stated that patient was found sleeping on his back and was essentially unarousable in the past. Patient's brother visited patient on 2017 and found the patient supine the floor beneath the chair staring and nonverbal. In the ER: * Vitals pulse is 166, respirations 18, blood pressure is 105/55, pulse ox is 93 % * WBCs 3.4, hemoglobin is 14.7, hematocrit is 44.2, platelets 50 * Sodium is 136, potassium 3.4, chloride is 97, bicarb is 15.5, BUNs 85, creatinine is 5.55 * AST is 1778, ALT is 294 * Total creatinine kinase is 2164, CK-MB is 9.3, troponin I is 0.09 * Albumin is 1.4 * PT is 12.0, INR is 1.2, PTT is 32.9, fibrinogen is 860 * Toxicology positive for benzodiazepine, positive for cannabinoids, ethyl alcohol is less than 3. * Renal ultrasound shows right renal cysts, small right pleural effusion, no hydronephrosis. * Head CT negative for acute changes * CT of the abdomen and pelvis shows moderate size right pleural effusion, to calcification in the expected region of distal common bile duct measuring 3 mm each. Bibasilar atelectasis, cardiomegaly, left adrenal nodule, small amount of ascites, probable 2.3 cm right renal cyst. * Chest CT shows a large right pleural effusion which extended's up to the lateral apex. Consolidation and volume loss in the right lower and right middle lobe. Patchy areas of infiltrate scattered throughout the left lung. In the ER patient received etomidate and cardioversion 2 without success in resolving tachycardia. Patient also receive Ativan. Patient was intubated and transferred to the ICU. In the ICU central line was placed, patient given amiodarone. Patient placed on pressors for persistent hypotension and shock. Patient was given bicarbonate as well as calcium chloride for severe hypocalcemia. After these intervention patient spontaneously converted to sinus tachycardia. Quezada catheter cannot be placed and urology is consulted. 02/03/2018-GI was consulted. Elevated LFTs and hyperbilirubinemia is likely multifactorial: alcohol abuse, possible choleledolithiasis, shock liver. Hepatitis panel was negative. 2D echo shows an EF of 60-65%. Mild tricuspid valve regurgitation. Estimated pulmonary artery pressure is 40 mmHg. Infectious disease consulted; reaffirmed sepsis, staph in the urine, pneumonia likely in the setting of alcoholism. Pt started on Zerbaxa, Tflaro, Flagyl, nephrology has been consulted 02/04- 02/05-patient's remains intubated and critically ill. Patient is weaned off Levophed, remains on Larry-Synephrine. Right sided pigtail catheter was placed for pleural effusion. Patient remains encephalopathic. Infectious disease continue to follow. HIV antibody negative, hepatitis panel negative. Nephrology continued to follow this on CRRT. GI continues to follow. Patient remains critically ill and placement of cholecystectomy tube is left up to critical medicine. In summary: 57 year old male with etoh abuse, found to be supine on the floor, unresponsive. Brought to the ER, had irregular complex tachycardia- cardioversion x 2. Pt has sepsis (aspiration pneumonia etoh, staph in urine), shock liver (multifactorial- etoh, choledolithiasis, hepatitas neg) pleurail effusion (s/p pigtail palcemnet), and renal failure (on CRRT), intubated, sedated, encephalopathic. Palliative Care was consulted by critical medicine given clinical situation. On my visit pt is intubated and sedated. Pt not able to give any history regarding anxiety or pain. I spoke with pt's brother, and also later on spoke with patient's son. Pt's health and clinical condition prior to hospitalization was inquired. Patient's course of hospitalization was reviewed. Questions answered. Goals of care is as follow per pt's son: == No cpr/acls/shock should his heart gets into trouble again. == They do want aggressive measure short of cpr. == Pt's son will arrive here from [place], and will have a Meeting this coming Wednesday. Function/Cognitive Trajectory: Per Brother, patient has had bouts of sobriety for 6 months or so, then would start drinking again, binge. The past brother reportedly was found to have a nodule, did not follow up; heavy drinking. Review of Systems All other systems reviewed negative except as stated in HPI, unobtainable due to endotracheal tube Constitutional: Reports fatigue Eyes: Denies bulging eyes, Denies change in vision Ears, Nose, Mouth, and Throat: Denies abnormal hearing, Denies mouth lesions Cardiovascular: Reports irregular heart rhythm, Reports shortness of breath Respiratory: Reports shortness of breath Gastrointestinal: Denies abdominal pain, Denies belching, Denies black, tarry stools Genitourinary: Reports decreased urination, Denies blood in semen, Denies blood in urine Musculoskeletal: Reports back pain (chronic back pain), Denies decreased muscle mass Skin/Breast: Denies lesions, Denies nail changes Neurologic: Reports confusion Psychiatric: Reports anxiety Endocrine: Denies cold intolerance Hematologic/Lymphatic: Denies enlarged lymph nodes Allergic/Immunologic: Denies seasonal runny nose PMFSH - History History Provided By: Medical Record - Medical History Medical History: Medical History (Last Updated 02/07/18 @ 12:07 by Aj Chavez MD) Chronic back pain Depression Diabetes Diverticulitis ETOH abuse - Family History Family History: Family History (Last Updated 02/07/18 @ 12:07 by Aj Chavez MD) Other Coronary artery disease Diabetes - Tobacco History Tobacco Use In Past 30 Days: Yes Smoking Status: Current every day smoker Tobacco Type: Cigarettes - Alcohol History How Often Do You Have a Drink Containing Alcohol: 4 or more times a week (daily) - Substance Use Type Marijuana Status: Active Medications and Allergies Active Medications: Active Medications Acetylcysteine (Mucomyst 10% Neb) 2 ml NEB Q4HR NEB GUNJAN Albuterol (Duoneb Neb (Gunjan)) 1 ampul NEB Q6HR NEB GUNJAN Last Admin: 02/07/18 03:47 Dose: Not Given Albuterol (Duoneb Neb (Prn)) 1 ampul NEB Q2HR NEB PRN PRN Reason: WHEEZING Chlorhexidine Gluconate (Peridex 0.12% Oral Kit) 15 ml OROPHARYNG BID@0800, 1999 GUNJAN Last Admin: 02/07/18 08:18 Dose: 15 ml Chlorhexidine Gluconate (Chlorhexidine 2% Cloth) 3 pack TOPICAL DAILY@0400 [facility] Stop: 02/10/18 03:59 Last Admin: 02/07/18 03:09 Dose: 3 pack Chlorhexidine Gluconate (Chlorhexidine 2% Cloth) 3 pack TOPICAL UNSCH PRN PRN Reason: HYGIENIC CARE Clonidine HCl (Catapres) 0.1 mg PO UNSCH PRN PRN Reason: SEE LABEL COMMENTS Dextrose (D50w Vial) 25 ml IV.PUSH UNSCH PRN PRN Reason: SEE LABEL COMMENTS Gelatin (Gelfoam 12 Mm/7 Mm Topical) 1 foam TOPICAL PRN PRN PRN Reason: help stop bleeding from site Gentamicin Sulfate (Gentamicin Inj) 20 mg OTHER WITH DIALYSIS PRN PRN Reason: Dwell Gentamycin Lock Last Admin: 02/07/18 08:49 Dose: 20 mg Heparin Sodium (Porcine) (Heparin Inj) 1,000 units OTHER WITH DIALYSIS PRN PRN Reason: Dwell Heparin to Fill Catheter Last Admin: 02/07/18 08:49 Dose: 1,000 units Heparin Sodium (Porcine) (Heparin Inj) 5,000 units SQ Q8H [facility] Heparin Sodium (Porcine) (Heparin Inj) 8,000 units IV.PUSH WITH DIALYSIS PRN PRN Reason: WITH DIALYSIS Sodium Chloride (Ns Inj) 1,000 mls @ 0 mls/hr IV.CONT .Q0M PRN PRN Reason: hypotension / volume replace Sodium Chloride (Ns Inj) 1,000 mls @ 0 mls/hr OTHER .Q0M PRN PRN Reason: for prime and rinse back Oxacillin Sodium 2 gm/ Sodium (Chloride) 100 mls @ 200 mls/hr IV.SIG Q4H [facility] Last Admin: 02/07/18 06:02 Dose: 200 mls/hr Cefepime HCl 2,000 mg/ Sodium (Chloride) 100 mls @ 200 mls/hr IV.SIG Q24H [facility] Last Infusion: 02/06/18 19:00 Dose: Infused Vasopressin 40 unit/ Dextrose 100 mls @ 6 mls/hr IV.CONT CONT GUNJAN; Protocol Last Infusion: 02/06/18 19:00 Dose: 0.04 units/min, 6 mls/hr Fentanyl (Fentanyl 10 Mcg/Ml Premix Drip) 2,500 mcg in 250 mls @ 5 mls/hr IV.CONT TITRATE PRN; Protocol PRN Reason: Per Protocol Stop: 02/12/18 00:00 Last Admin: 02/07/18 03:11 Dose: 250 mcg/hr, 25 mls/hr Metronidazole/Sodium Chloride (Flagyl 500 Mg Inj) 100 mls @ 100 mls/hr IV.SIG Q6H GUNJAN Last Admin: 02/07/18 03:08 Dose: 100 mls/hr Norepinephrine Bitartrate (Levophed-Dextrose 4 Mg/250 Ml Drip) 4 mg in 250 mls @ 7.5 mls/hr IV.SIG TITRATE PRN; Protocol PRN Reason: See protocol Sodium Chloride (Ns Inj) 1,000 mls @ 0 mls/hr IV.SIG .Q0M PRN PRN Reason: SEE LABEL COMMENTS Sodium Chloride (Ns Inj) 1,000 mls @ 500 mls/hr IV.SIG .Q2H GUNJAN Sodium Chloride (Ns Inj) 1,000 mls @ 500 mls/hr IV.SIG .Q2H GUNJAN Sodium Bicarbonate 75 meq/ (Sodium Chloride) 1,075 mls @ 999 mls/hr IV.CONT .Q1H5M GUNJAN Amiodarone HCl 450 mg/ Sodium (Chloride) 250 mls @ 16.66 mls/hr IV.SIG .Q15H1M GUNJAN Last Infusion: 02/06/18 19:00 Dose: 0.5 mg/min, 16.66 mls/hr Protamine Sulfate 25 mg/ (Sodium Chloride) 252.5 mls @ 5 mls/hr IV.CONT TITRATE PRN PRN Reason: HEPARINIZATION PROTOCOL Phenylephrine HCl 40 mg/ (Dextrose) 500 mls @ 30 mls/hr IV.CONT TITRATE PRN; Protocol PRN Reason: BLOOD PRESSURE MANAGEMENT Last Titration: 02/06/18 19:40 Dose: 0 mcg/min, 0 mls/hr Propofol (Diprivan 1000 Mg/100 Ml Inj) 1,000 mg in 100 mls @ 2.85 mls/hr IV.CONT TITRATE PRN; Protocol PRN Reason: SEDATION Last Titration: 02/06/18 19:00 Dose: 0 mcg/kg/min, 0 mls/hr Heparin Sodium/Dextrose (Heparin/D5w 25,000 U/250 Ml) 25,000 unit in 250 mls @ 0 mls/hr IV.CONT TITRATE PRN; Protocol PRN Reason: PROTOCOL Insulin Human Regular (Novolin R Supplemental Scale) 0 units SQ ACHS [facility]; Protocol Last Admin: 02/07/18 08:16 Dose: 4 units Mannitol (Mannitol Inj) 12.5 gm IV.PUSH PRN PRN PRN Reason: hypotension / volume replace Miscellaneous Information (Misc Nursing Information) 0 each OTHER UNSCH [facility] Miscellaneous Information (Mis Information) 1 each OTHER Q361D [facility] Multivitamins (Theragran) 1 tab PO DAILY [facility] Last Admin: 02/07/18 08:02 Dose: 1 tab Nitroglycerin (Nitrostat Sl) 0.4 mg SL Q5M PRN PRN Reason: CHEST PAIN Ondansetron HCl (Zofran Odt) 4 mg PO Q6H PRN PRN Reason: NAUSEA OR VOMITING Pantoprazole Sodium (Protonix Inj) 40 mg IV.PUSH DAILY [facility] Last Admin: 02/07/18 08:02 Dose: 40 mg Sodium Chloride (Ns Flush) 2 ml IV.FLUSH UNSCH PRN PRN Reason: FLUSH AFTER USING IV ACCESS Thiamine HCl (Vitamin B1) 100 mg PO DAILY [facility] Last Admin: 02/07/18 08:02 Dose: 100 mg Allergies Allergy/AdvReac Type Severity Reaction Status Date / Time lisinopril Allergy Severe airway Verified 02/05/18 06:22 edema Sulfa (Sulfonamide Allergy Severe Edema, Verified 02/05/18 06:22 Antibiotics) Localized Home Medications Medication Instructions Recorded Confirmed Type chlordiazepoxide HCl 25 mg PO QID 02/05/18 02/05/18 History Advance Directives Living Will: No Healthcare Surrogate: No Power of Corporate Security Manager: No Physical Exam Vital Signs: Vital Signs - 24 hr 02/06/18 10:00 02/06/18 11:00 02/06/18 12:00 Temperature Pulse Rate 107 H 107 H 109 H Respiratory Rate 18 13 18 Blood Pressure 114/61 109/59 L 110/61 Pulse Oximetry 94 L 93 L 94 L 02/06/18 12:12 02/06/18 13:00 02/06/18 14:00 Temperature Pulse Rate 110 H 111 H Respiratory Rate 18 18 18 Blood Pressure 108/55 L 102/60 Pulse Oximetry 93 L 94 L 02/06/18 15:00 02/06/18 16:00 02/06/18 16:02 Temperature Pulse Rate 105 H 106 H 108 H Respiratory Rate 18 18 18 Blood Pressure 103/62 100/62 Pulse Oximetry 96 96 02/06/18 16:04 02/06/18 17:00 02/06/18 17:10 Temperature Pulse Rate 100 H 171 H Respiratory Rate 18 18 Blood Pressure 103/63 Pulse Oximetry 94 L 02/06/18 18:00 02/06/18 19:00 02/06/18 19:53 Temperature Pulse Rate 101 H 100 H 100 H Respiratory Rate 18 18 18 Blood Pressure 127/61 124/63 Pulse Oximetry 94 L 93 L 99 02/06/18 20:00 02/06/18 21:00 02/06/18 22:00 Temperature 102 F H Pulse Rate 100 H 99 H 170 H Respiratory Rate 18 18 18 Blood Pressure 141/67 H 139/64 108/59 L Pulse Oximetry 96 94 L 90 L 02/06/18 23:00 02/07/18 00:00 02/07/18 01:00 Temperature Pulse Rate 91 H 152 H 80 Respiratory Rate 18 18 18 Blood Pressure 130/61 117/59 L 119/61 Pulse Oximetry 93 L 94 L 94 L 02/07/18 02:00 02/07/18 03:00 02/07/18 03:47 Temperature Pulse Rate 80 134 H Respiratory Rate 18 2 L 18 Blood Pressure 125/62 124/79 Pulse Oximetry 95 100 95 02/07/18 04:00 02/07/18 05:00 02/07/18 06:00 Temperature 97.7 F Pulse Rate 146 H 137 H 137 H Respiratory Rate 4 L 6 L 19 Blood Pressure 125/68 115/63 116/66 Pulse Oximetry 96 96 96 02/07/18 07:00 02/07/18 08:00 Temperature 98.4 F Pulse Rate 80 79 Respiratory Rate 0 L 18 Blood Pressure 108/55 L 96/61 L Pulse Oximetry 95 92 L I&O: Intake & Output 02/05/18 02/06/18 02/07/18 02/08/18 06:59 06:59 06:59 06:59 Intake Total 520 / 520 2850 / 2850 Output Total 270 / 270 2860 / 2860 Balance 250 / 250 -10 / -10 Weight 95 kg 101 kg 101 kg Physical Exam: CONSTITUTIONAL/GENERAL: This is a critically ill 57 year old male, intubated and sedated TUBES/LINES/DRAINS: pigtail cathether, quezada, ET tube, central line. SKIN:jaundice HEAD: Atraumatic. Normocephalic. EYES: Pupils equal and round and reactive. Icteric scelera ENT: Hearing grossly normal. Nose without bleeding or purulent drainage. Throat ET tube present NECK: Trachea midline. Supple, nontender. No palpable thyroid enlargement or nodularity. CARDIOVASCULAR: Regular rate and rhythm without murmurs, gallops, or rubs. No JVD. RESPIRATORY/CHEST:Rhonchi bilaterally. GASTROINTESTINAL: Abdomen distended. soft. BS present. GENITOURINARY: Without palpable bladder distension. Quezada catheter in place. MUSCULOSKELETAL: Extremities without clubbing, cyanosis. 2+ edema LYMPHATICS: No palpable cervical or supraclavicular adenopathy. NEUROLOGICAL: Intubated sedated PSYCHIATRIC: unable to elicit Diagnostic Tests Laboratory: Laboratory Results - last 72 hr 02/02/18 02/02/18 02/02/18 16:22 16:22 16:22 WBC RBC Hgb Hct MCV MCH MCHC RDW Plt Count MPV Neut % (Auto) Lymph % (Auto) [place] % (Auto) Eos % (Auto) Baso % (Auto) Neut # (Auto) Lymph # (Auto) [place] # (Auto) Eos # (Auto) Baso # (Auto) CBC Comment Total Counted Neutrophils % (Manual) Band Neutrophils % Lymphocytes % Monocytes % Eosinophils % Neutrophils # (Manual) Metamyelocytes Nucleated RBCs Differential Comment Toxic Granulation Toxic Vacuolation Dohle Bodies Platelet Estimate Plt Morphology Comment Target Cells Tear Drop Cells Logan Cells RBC Morph Comment PT INR APTT Fibrinogen Puncture Site Patient Temperature HCO3 Base Excess O2 Saturation ABG pH ABG pCO2 ABG pO2 ABG O2 Content ABG Carboxyhemoglobin ABG Methemoglobin Hemoglobin O2 Delivery Device Vent Setting Inspired O2 Sodium 133 L Potassium 3.4 L Chloride 96 L Carbon Dioxide 10.9 L Anion Gap 26 H BUN 81 H Creatinine 5.71 H Estimated GFR 10 L POC Glucose Random Glucose 142 H Serum Osmolality Lactic Acid Calcium 5.8 L* Prot Corrected Calcium 6.5 L* Phosphorus Magnesium Iron TIBC % Saturation Ferritin Total Bilirubin 1.7 H AST 1685 H ALT 307 H Alkaline Phosphatase 66 Ammonia LESS THAN 10 L Total Creatine Kinase 1286 H CK-MB (CK-2) 8.6 H CK-MB (CK-2) % 0.7 Troponin I 0.03 Total Protein 5.4 L D Albumin 1.8 L Prealbumin Iofhe-5-Odysetdbhah Amylase Lipase Tumor Marker AFP TSH 3rd Generation 1.610 Urine Color Urine Turbidity Urine pH Ur Specific [place] Urine Protein Urine Glucose (UA) Urine Ketones Urine Occult Blood Urine Nitrite Urine Bilirubin Urine Urobilinogen Ur Leukocyte Esterase Urine RBC Urine WBC Urine Bacteria Micro UA Comment Urine Osmolality Ur Random Creatinine Ur Random Sodium Pleural pH Pleural WBC Pleural RBC Pleural Neutrophils Pleural Lymphocytes Pleural Monocytes Pleural Fluid Comment Pleural Total Protein Pleural LDH Pleural Glucose Nasal Screen MRSA (PCR) Random Vancomycin Salicylates 5.1 Urine Opiates Screen Acetaminophen LESS THAN 2.0 L Ur Barbiturates Screen Ur Amphetamines Screen U Benzodiazepines Scrn Urine Cocaine Screen U Cannabinoids Screen Ethyl Alcohol LESS THAN 3 GARY Screen Hepatitis A IgM Ab Hep Bs Antigen Hep B Core IgM Ab Hep C IgG Ab HIV 1&2 Ab/P24 Ag 4thGn 02/02/18 02/02/18 02/02/18 16:22 16:22 16:22 WBC 3.4 L RBC 4.98 Hgb 14.7 Hct 44.2 MCV 88.8 MCH 29.6 MCHC 33.3 RDW 15.9 Plt Count 50 L D MPV 11.3 H Neut % (Auto) 92.4 H Lymph % (Auto) 4.4 L [place] % (Auto) 2.6 Eos % (Auto) 0.4 Baso % (Auto) 0.2 Neut # (Auto) 3.2 Lymph # (Auto) 0.2 L [place] # (Auto) 0.1 Eos # (Auto) 0.0 Baso # (Auto) 0.0 CBC Comment AUTO DIFF Total Counted 100 Neutrophils % (Manual) 63 Band Neutrophils % 30 H Lymphocytes % 4 L Monocytes % 2 Eosinophils % 1 Neutrophils # (Manual) 3.2 Metamyelocytes Nucleated RBCs Differential Comment FINAL DIFF MANUAL Toxic Granulation 3+ H Toxic Vacuolation PRESENT H Dohle Bodies PRESENT H Platelet Estimate LOW L Plt Morphology Comment NORMAL Target Cells Tear Drop Cells Amanda Cells 2+ H RBC Morph Comment PT 12.0 H INR 1.2 APTT 32.9 H Fibrinogen Puncture Site Patient Temperature HCO3 Base Excess O2 Saturation ABG pH ABG pCO2 ABG pO2 ABG O2 Content ABG Carboxyhemoglobin ABG Methemoglobin Hemoglobin O2 Delivery Device Vent Setting Inspired O2 Sodium Potassium Chloride Carbon Dioxide Anion Gap BUN Creatinine Estimated GFR POC Glucose Random Glucose Serum Osmolality Lactic Acid Calcium Prot Corrected Calcium Phosphorus Magnesium Iron TIBC % Saturation Ferritin Total Bilirubin AST ALT Alkaline Phosphatase Ammonia Total Creatine Kinase CK-MB (CK-2) CK-MB (CK-2) % Troponin I Total Protein Albumin Prealbumin LESS THAN 3 L Mhpuc-4-Zpufprcmyid Amylase Lipase Tumor Marker AFP TSH 3rd Generation Urine Color Urine Turbidity Urine pH Ur Specific [place] Urine Protein Urine Glucose (UA) Urine Ketones Urine Occult Blood Urine Nitrite Urine Bilirubin Urine Urobilinogen Ur Leukocyte Esterase Urine RBC Urine WBC Urine Bacteria Micro UA Comment Urine Osmolality Ur Random Creatinine Ur Random Sodium Pleural pH Pleural WBC Pleural RBC Pleural Neutrophils Pleural Lymphocytes Pleural Monocytes Pleural Fluid Comment Pleural Total Protein Pleural LDH Pleural Glucose Nasal Screen MRSA (PCR) Random Vancomycin Salicylates Urine Opiates Screen Acetaminophen Ur Barbiturates Screen Ur Amphetamines Screen U Benzodiazepines Scrn Urine Cocaine Screen U Cannabinoids Screen Ethyl Alcohol GARY Screen Hepatitis A IgM Ab Hep Bs Antigen Hep B Core IgM Ab Hep C IgG Ab HIV 1&2 Ab/P24 Ag 4thGn 02/02/18 02/02/18 02/02/18 16:22 17:09 17:14 WBC RBC Hgb Hct MCV MCH MCHC RDW Plt Count MPV Neut % (Auto) Lymph % (Auto) [place] % (Auto) Eos % (Auto) Baso % (Auto) Neut # (Auto) Lymph # (Auto) [place] # (Auto) Eos # (Auto) Baso # (Auto) CBC Comment Total Counted Neutrophils % (Manual) Band Neutrophils % Lymphocytes % Monocytes % Eosinophils % Neutrophils # (Manual) Metamyelocytes Nucleated RBCs Differential Comment Toxic Granulation Toxic Vacuolation Dohle Bodies Platelet Estimate Plt Morphology Comment Target Cells Tear Drop Cells Amanda Cells RBC Morph Comment PT INR APTT Fibrinogen Puncture Site Patient Temperature HCO3 Base Excess O2 Saturation ABG pH ABG pCO2 ABG pO2 ABG O2 Content ABG Carboxyhemoglobin ABG Methemoglobin Hemoglobin O2 Delivery Device Vent Setting Inspired O2 Sodium Potassium Chloride Carbon Dioxide Anion Gap BUN Creatinine Estimated GFR POC Glucose Random Glucose Serum Osmolality 304 H Lactic Acid 6.5 H* Calcium Prot Corrected Calcium Phosphorus Magnesium Iron TIBC % Saturation Ferritin Total Bilirubin AST ALT Alkaline Phosphatase Ammonia Total Creatine Kinase CK-MB (CK-2) CK-MB (CK-2) % Troponin I Total Protein Albumin Prealbumin Dqnxu-1-Chetpsgibph Amylase Lipase Tumor Marker AFP TSH 3rd Generation Urine Color Taisha Urine Turbidity CLOUDY H Urine pH 5.0 Ur Specific [place] 1.017 Urine Protein 100 H Urine Glucose (UA) 50 Urine Ketones NEG Urine Occult Blood LARGE H Urine Nitrite NEG Urine Bilirubin NEG Urine Urobilinogen 2.0 H Ur Leukocyte Esterase NEG Urine RBC Urine WBC Urine Bacteria FEW H Micro UA Comment CATH-CULTURE IND Urine Osmolality Ur Random Creatinine Ur Random Sodium Pleural pH Pleural WBC Pleural RBC Pleural Neutrophils Pleural Lymphocytes Pleural Monocytes Pleural Fluid Comment Pleural Total Protein Pleural LDH Pleural Glucose Nasal Screen MRSA (PCR) Random Vancomycin Salicylates Urine Opiates Screen Acetaminophen Ur Barbiturates Screen Ur Amphetamines Screen U Benzodiazepines Scrn Urine Cocaine Screen U Cannabinoids Screen Ethyl Alcohol GARY Screen Hepatitis A IgM Ab Hep Bs Antigen Hep B Core IgM Ab Hep C IgG Ab HIV 1&2 Ab/P24 Ag 4thGn 02/02/18 02/02/18 02/02/18 17:20 17:21 17:21 WBC RBC Hgb Hct MCV MCH MCHC RDW Plt Count MPV Neut % (Auto) Lymph % (Auto) [place] % (Auto) Eos % (Auto) Baso % (Auto) Neut # (Auto) Lymph # (Auto) [place] # (Auto) Eos # (Auto) Baso # (Auto) CBC Comment Total Counted Neutrophils % (Manual) Band Neutrophils % Lymphocytes % Monocytes % Eosinophils % Neutrophils # (Manual) Metamyelocytes Nucleated RBCs Differential Comment Toxic Granulation Toxic Vacuolation Dohle Bodies Platelet Estimate Plt Morphology Comment Target Cells Tear Drop Cells Amanda Cells RBC Morph Comment PT INR APTT Fibrinogen Puncture Site LT FEMORAL Patient Temperature 98.6 HCO3 15 L* Base Excess -12.9 L O2 Saturation 97 ABG pH 7.13 L* ABG pCO2 47 H ABG pO2 212 H ABG O2 Content 17.8 ABG Carboxyhemoglobin 0.5 ABG Methemoglobin 0.8 Hemoglobin 12.7 O2 Delivery Device VENTILATOR Vent Setting AC/16/500/+5 Inspired O2 100 Sodium Potassium Chloride Carbon Dioxide Anion Gap BUN Creatinine Estimated GFR POC Glucose Random Glucose Serum Osmolality Lactic Acid Calcium Prot Corrected Calcium Phosphorus Magnesium Iron TIBC % Saturation Ferritin Total Bilirubin AST ALT Alkaline Phosphatase Ammonia Total Creatine Kinase CK-MB (CK-2) CK-MB (CK-2) % Troponin I Total Protein Albumin Prealbumin Qarus-3-Tlibrtfklyy Amylase Lipase Tumor Marker AFP TSH 3rd Generation Urine Color Urine Turbidity Urine pH Ur Specific [place] Urine Protein Urine Glucose (UA) Urine Ketones Urine Occult Blood Urine Nitrite Urine Bilirubin Urine Urobilinogen Ur Leukocyte Esterase Urine RBC Urine WBC Urine Bacteria Micro UA Comment Urine Osmolality 328 Ur Random Creatinine 237.3 Ur Random Sodium 14 Pleural pH Pleural WBC Pleural RBC Pleural Neutrophils Pleural Lymphocytes Pleural Monocytes Pleural Fluid Comment Pleural Total Protein Pleural LDH Pleural Glucose Nasal Screen MRSA (PCR) Random Vancomycin Salicylates Urine Opiates Screen NEG Acetaminophen Ur Barbiturates Screen NEG Ur Amphetamines Screen NEG U Benzodiazepines Scrn POS H Urine Cocaine Screen NEG U Cannabinoids Screen POS H Ethyl Alcohol GARY Screen Hepatitis A IgM Ab Hep Bs Antigen Hep B Core IgM Ab Hep C IgG Ab HIV 1&2 Ab/P24 Ag 4thGn 02/02/18 02/02/18 02/02/18 18:03 21:30 21:30 WBC RBC Hgb Hct MCV MCH MCHC RDW Plt Count MPV Neut % (Auto) Lymph % (Auto) [place] % (Auto) Eos % (Auto) Baso % (Auto) Neut # (Auto) Lymph # (Auto) [place] # (Auto) Eos # (Auto) Baso # (Auto) CBC Comment Total Counted Neutrophils % (Manual) Band Neutrophils % Lymphocytes % Monocytes % Eosinophils % Neutrophils # (Manual) Metamyelocytes Nucleated RBCs Differential Comment Toxic Granulation Toxic Vacuolation Dohle Bodies Platelet Estimate Plt Morphology Comment Target Cells Tear Drop Cells Amanda Cells RBC Morph Comment PT INR APTT Fibrinogen Puncture Site ART LINE Patient Temperature 98.6 HCO3 19 L Base Excess -5.7 L O2 Saturation 95 ABG pH 7.33 L ABG pCO2 37 L ABG pO2 129 H ABG O2 Content 16.1 ABG Carboxyhemoglobin 0.8 ABG Methemoglobin 1.5 Hemoglobin 11.9 L O2 Delivery Device VENTILATOR Vent Setting VOLUME A/C Inspired O2 100 Sodium 138 Potassium Chloride Carbon Dioxide Anion Gap BUN Creatinine Estimated GFR POC Glucose Random Glucose Serum Osmolality Lactic Acid 7.0 H* Calcium Prot Corrected Calcium Phosphorus Magnesium Iron TIBC % Saturation Ferritin Total Bilirubin AST ALT Alkaline Phosphatase Ammonia Total Creatine Kinase 1596 H CK-MB (CK-2) 8.8 H CK-MB (CK-2) % 0.6 Troponin I 0.04 Total Protein Albumin Prealbumin Vcbdu-1-Erwodyczgwc Amylase Lipase Tumor Marker AFP TSH 3rd Generation Urine Color Urine Turbidity Urine pH Ur Specific [place] Urine Protein Urine Glucose (UA) Urine Ketones Urine Occult Blood Urine Nitrite Urine Bilirubin Urine Urobilinogen Ur Leukocyte Esterase Urine RBC Urine WBC Urine Bacteria Micro UA Comment Urine Osmolality Ur Random Creatinine Ur Random Sodium Pleural pH Pleural WBC Pleural RBC Pleural Neutrophils Pleural Lymphocytes Pleural Monocytes Pleural Fluid Comment Pleural Total Protein Pleural LDH Pleural Glucose Nasal Screen MRSA (PCR) Random Vancomycin Salicylates Urine Opiates Screen Acetaminophen Ur Barbiturates Screen Ur Amphetamines Screen U Benzodiazepines Scrn Urine Cocaine Screen U Cannabinoids Screen Ethyl Alcohol GARY Screen Hepatitis A IgM Ab Hep Bs Antigen Hep B Core IgM Ab Hep C IgG Ab HIV 1&2 Ab/P24 Ag 4thGn 02/02/18 02/03/18 02/03/18 23:15 04:15 04:15 WBC RBC Hgb Hct MCV MCH MCHC RDW Plt Count MPV Neut % (Auto) Lymph % (Auto) [place] % (Auto) Eos % (Auto) Baso % (Auto) Neut # (Auto) Lymph # (Auto) [place] # (Auto) Eos # (Auto) Baso # (Auto) CBC Comment Total Counted Neutrophils % (Manual) Band Neutrophils % Lymphocytes % Monocytes % Eosinophils % Neutrophils # (Manual) Metamyelocytes Nucleated RBCs Differential Comment Toxic Granulation Toxic Vacuolation Dohle Bodies Platelet Estimate Plt Morphology Comment Target Cells Tear Drop Cells [place] Cells RBC Morph Comment PT INR APTT Fibrinogen Puncture Site Patient Temperature HCO3 Base Excess O2 Saturation ABG pH ABG pCO2 ABG pO2 ABG O2 Content ABG Carboxyhemoglobin ABG Methemoglobin Hemoglobin O2 Delivery Device Vent Setting Inspired O2 Sodium 136 Potassium 3.4 L Chloride 97 L Carbon Dioxide 15.5 L Anion Gap 24 H BUN 85 H Creatinine 5.55 H Estimated GFR 11 L POC Glucose Random Glucose 121 H Serum Osmolality Lactic Acid 6.6 H* Calcium 6.8 L* D Prot Corrected Calcium 7.9 L D Phosphorus 5.0 H Magnesium 2.0 Iron TIBC % Saturation Ferritin Total Bilirubin 2.4 H AST 1778 H ALT 294 H Alkaline Phosphatase 67 Ammonia Total Creatine Kinase 2164 H CK-MB (CK-2) 9.3 H CK-MB (CK-2) % 0.4 Troponin I 0.09 H Total Protein 4.9 L Albumin 1.4 L Prealbumin Tinky-0-Bzsqquteqaw Amylase Lipase Tumor Marker AFP TSH 3rd Generation Urine Color Urine Turbidity Urine pH Ur Specific [place] Urine Protein Urine Glucose (UA) Urine Ketones Urine Occult Blood Urine Nitrite Urine Bilirubin Urine Urobilinogen Ur Leukocyte Esterase Urine RBC Urine WBC Urine Bacteria Micro UA Comment Urine Osmolality Ur Random Creatinine Ur Random Sodium Pleural pH Pleural WBC Pleural RBC Pleural Neutrophils Pleural Lymphocytes Pleural Monocytes Pleural Fluid Comment Pleural Total Protein Pleural LDH Pleural Glucose Nasal Screen MRSA (PCR) MRSA NOT DETECTED Random Vancomycin Salicylates Urine Opiates Screen Acetaminophen Ur Barbiturates Screen Ur Amphetamines Screen U Benzodiazepines Scrn Urine Cocaine Screen U Cannabinoids Screen Ethyl Alcohol GARY Screen Hepatitis A IgM Ab Hep Bs Antigen Hep B Core IgM Ab Hep C IgG Ab HIV 1&2 Ab/P24 Ag 4thGn 02/03/18 02/03/18 02/03/18 04:15 04:15 08:18 WBC 3.6 L RBC 4.60 Hgb 13.6 Hct 40.4 MCV 87.9 MCH 29.7 MCHC 33.8 RDW 16.2 Plt Count 61 L MPV 11.5 H Neut % (Auto) Lymph % (Auto) [place] % (Auto) Eos % (Auto) Baso % (Auto) Neut # (Auto) Lymph # (Auto) [place] # (Auto) Eos # (Auto) Baso # (Auto) CBC Comment Total Counted Neutrophils % (Manual) Band Neutrophils % Lymphocytes % Monocytes % Eosinophils % Neutrophils # (Manual) Metamyelocytes Nucleated RBCs Differential Comment Toxic Granulation Toxic Vacuolation Dohle Bodies Platelet Estimate Plt Morphology Comment Target Cells Tear Drop Cells Logan Cells RBC Morph Comment PT 11.1 INR 1.1 APTT 35.1 H Fibrinogen Puncture Site ART LINE Patient Temperature 98.6 HCO3 16 L* Base Excess -8.3 L O2 Saturation 93 ABG pH 7.38 ABG pCO2 28 L ABG pO2 88 ABG O2 Content 18.2 ABG Carboxyhemoglobin 0.4 ABG Methemoglobin 1.6 Hemoglobin 13.9 O2 Delivery Device VENTILATOR Vent Setting AC22/650/PEEP5 Inspired O2 40 Sodium Potassium Chloride Carbon Dioxide Anion Gap BUN Creatinine Estimated GFR POC Glucose Random Glucose Serum Osmolality Lactic Acid Calcium Prot Corrected Calcium Phosphorus Magnesium Iron TIBC % Saturation Ferritin Total Bilirubin AST ALT Alkaline Phosphatase Ammonia Total Creatine Kinase CK-MB (CK-2) CK-MB (CK-2) % Troponin I Total Protein Albumin Prealbumin Tudmn-3-Lpfvmicckdx Amylase Lipase Tumor Marker AFP TSH 3rd Generation Urine Color Urine Turbidity Urine pH Ur Specific [place] Urine Protein Urine Glucose (UA) Urine Ketones Urine Occult Blood Urine Nitrite Urine Bilirubin Urine Urobilinogen Ur Leukocyte Esterase Urine RBC Urine WBC Urine Bacteria Micro UA Comment Urine Osmolality Ur Random Creatinine Ur Random Sodium Pleural pH Pleural WBC Pleural RBC Pleural Neutrophils Pleural Lymphocytes Pleural Monocytes Pleural Fluid Comment Pleural Total Protein Pleural LDH Pleural Glucose Nasal Screen MRSA (PCR) Random Vancomycin Salicylates Urine Opiates Screen Acetaminophen Ur Barbiturates Screen Ur Amphetamines Screen U Benzodiazepines Scrn Urine Cocaine Screen U Cannabinoids Screen Ethyl Alcohol GARY Screen Hepatitis A IgM Ab Hep Bs Antigen Hep B Core IgM Ab Hep C IgG Ab HIV 1&2 Ab/P24 Ag 4thGn 02/03/18 02/03/18 02/03/18 10:45 10:45 10:45 WBC RBC Hgb Hct MCV MCH MCHC RDW Plt Count MPV Neut % (Auto) Lymph % (Auto) [place] % (Auto) Eos % (Auto) Baso % (Auto) Neut # (Auto) Lymph # (Auto) [place] # (Auto) Eos # (Auto) Baso # (Auto) CBC Comment Total Counted Neutrophils % (Manual) Band Neutrophils % Lymphocytes % Monocytes % Eosinophils % Neutrophils # (Manual) Metamyelocytes Nucleated RBCs Differential Comment Toxic Granulation Toxic Vacuolation Dohle Bodies Platelet Estimate Plt Morphology Comment Target Cells Tear Drop Cells Logan Cells RBC Morph Comment PT INR APTT Fibrinogen GREATER THAN 860 H Puncture Site Patient Temperature HCO3 Base Excess O2 Saturation ABG pH ABG pCO2 ABG pO2 ABG O2 Content ABG Carboxyhemoglobin ABG Methemoglobin Hemoglobin O2 Delivery Device Vent Setting Inspired O2 Sodium Potassium Chloride Carbon Dioxide Anion Gap BUN Creatinine Estimated GFR POC Glucose Random Glucose Serum Osmolality Lactic Acid Calcium Prot Corrected Calcium Phosphorus Magnesium Iron TIBC % Saturation Ferritin Total Bilirubin AST ALT Alkaline Phosphatase Ammonia Total Creatine Kinase CK-MB (CK-2) CK-MB (CK-2) % Troponin I Total Protein Albumin Prealbumin Tpjwr-2-Udkznygqvtm Amylase Lipase Tumor Marker AFP TSH 3rd Generation Urine Color Urine Turbidity Urine pH Ur Specific [place] Urine Protein Urine Glucose (UA) Urine Ketones Urine Occult Blood Urine Nitrite Urine Bilirubin Urine Urobilinogen Ur Leukocyte Esterase Urine RBC Urine WBC Urine Bacteria Micro UA Comment Urine Osmolality Ur Random Creatinine Ur Random Sodium Pleural pH Pleural WBC Pleural RBC Pleural Neutrophils Pleural Lymphocytes Pleural Monocytes Pleural Fluid Comment Pleural Total Protein Pleural LDH Pleural Glucose Nasal Screen MRSA (PCR) Random Vancomycin Salicylates Urine Opiates Screen Acetaminophen Ur Barbiturates Screen Ur Amphetamines Screen U Benzodiazepines Scrn Urine Cocaine Screen U Cannabinoids Screen Ethyl Alcohol GARY Screen Hepatitis A IgM Ab NONREACTIVE Hep Bs Antigen NONREACTIVE Hep B Core IgM Ab NONREACTIVE Hep C IgG Ab NONREACTIVE HIV 1&2 Ab/P24 Ag 4thGn NONREACTIVE 02/03/18 02/03/18 02/03/18 12:00 12:22 13:45 WBC RBC Hgb Hct MCV MCH MCHC RDW Plt Count MPV Neut % (Auto) Lymph % (Auto) [place] % (Auto) Eos % (Auto) Baso % (Auto) Neut # (Auto) Lymph # (Auto) [place] # (Auto) Eos # (Auto) Baso # (Auto) CBC Comment Total Counted Neutrophils % (Manual) Band Neutrophils % Lymphocytes % Monocytes % Eosinophils % Neutrophils # (Manual) Metamyelocytes Nucleated RBCs Differential Comment Toxic Granulation Toxic Vacuolation Dohle Bodies Platelet Estimate Plt Morphology Comment Target Cells Tear Drop Cells Amanda Cells RBC Morph Comment PT INR APTT Fibrinogen Puncture Site Patient Temperature HCO3 Base Excess O2 Saturation ABG pH ABG pCO2 ABG pO2 ABG O2 Content ABG Carboxyhemoglobin ABG Methemoglobin Hemoglobin O2 Delivery Device Vent Setting Inspired O2 Sodium 136 Potassium Chloride Carbon Dioxide Anion Gap BUN Creatinine Estimated GFR POC Glucose Random Glucose Serum Osmolality Lactic Acid 7.8 H* Calcium Prot Corrected Calcium Phosphorus Magnesium Iron TIBC % Saturation Ferritin Total Bilirubin AST ALT Alkaline Phosphatase Ammonia Total Creatine Kinase 2688 H CK-MB (CK-2) 9.5 H CK-MB (CK-2) % 0.4 Troponin I 0.10 H Total Protein Albumin Prealbumin Bfzsf-6-Ugdqnwxfafv Amylase Lipase Tumor Marker AFP TSH 3rd Generation Urine Color Urine Turbidity Urine pH Ur Specific [place] Urine Protein Urine Glucose (UA) Urine Ketones Urine Occult Blood Urine Nitrite Urine Bilirubin Urine Urobilinogen Ur Leukocyte Esterase Urine RBC Urine WBC Urine Bacteria Micro UA Comment Urine Osmolality Ur Random Creatinine Ur Random Sodium Pleural pH 7.5 Pleural WBC 49748 H Pleural RBC 87626 H Pleural Neutrophils 82 Pleural Lymphocytes 17 Pleural Monocytes 1 Pleural Fluid Comment Pleural Total Protein Pleural LDH Pleural Glucose Nasal Screen MRSA (PCR) Random Vancomycin Salicylates Urine Opiates Screen Acetaminophen Ur Barbiturates Screen Ur Amphetamines Screen U Benzodiazepines Scrn Urine Cocaine Screen U Cannabinoids Screen Ethyl Alcohol GARY Screen Hepatitis A IgM Ab Hep Bs Antigen Hep B Core IgM Ab Hep C IgG Ab HIV 1&2 Ab/P24 Ag 4thGn 02/03/18 02/03/18 02/03/18 13:45 13:50 15:45 WBC RBC Hgb Hct MCV MCH MCHC RDW Plt Count MPV Neut % (Auto) Lymph % (Auto) [place] % (Auto) Eos % (Auto) Baso % (Auto) Neut # (Auto) Lymph # (Auto) [place] # (Auto) Eos # (Auto) Baso # (Auto) CBC Comment Total Counted Neutrophils % (Manual) Band Neutrophils % Lymphocytes % Monocytes % Eosinophils % Neutrophils # (Manual) Metamyelocytes Nucleated RBCs Differential Comment Toxic Granulation Toxic Vacuolation Dohle Bodies Platelet Estimate Plt Morphology Comment Target Cells Tear Drop Cells [place] Cells RBC Morph Comment PT INR APTT Fibrinogen Puncture Site Patient Temperature HCO3 Base Excess O2 Saturation ABG pH ABG pCO2 ABG pO2 ABG O2 Content ABG Carboxyhemoglobin ABG Methemoglobin Hemoglobin O2 Delivery Device Vent Setting Inspired O2 Sodium 133 L Potassium 4.1 Chloride 92 L Carbon Dioxide 17.4 L Anion Gap 24 H BUN 91 H Creatinine 5.85 H Estimated GFR 10 L POC Glucose Random Glucose 133 H Serum Osmolality Lactic Acid Calcium 6.5 L* Prot Corrected Calcium 7.6 L Phosphorus Magnesium Iron TIBC % Saturation Ferritin Total Bilirubin AST ALT Alkaline Phosphatase Ammonia Total Creatine Kinase CK-MB (CK-2) CK-MB (CK-2) % Troponin I Total Protein 4.9 L Albumin Prealbumin Pbsxn-9-Zpeihggduev Amylase Lipase Tumor Marker AFP 0.8 TSH 3rd Generation Urine Color Urine Turbidity Urine pH Ur Specific [place] Urine Protein Urine Glucose (UA) Urine Ketones Urine Occult Blood Urine Nitrite Urine Bilirubin Urine Urobilinogen Ur Leukocyte Esterase Urine RBC Urine WBC Urine Bacteria Micro UA Comment Urine Osmolality Ur Random Creatinine Ur Random Sodium Pleural pH Pleural WBC Pleural RBC Pleural Neutrophils Pleural Lymphocytes Pleural Monocytes Pleural Fluid Comment Pleural Total Protein 4.0 Pleural LDH 3449 Pleural Glucose 4 Nasal Screen MRSA (PCR) Random Vancomycin Salicylates Urine Opiates Screen Acetaminophen Ur Barbiturates Screen Ur Amphetamines Screen U Benzodiazepines Scrn Urine Cocaine Screen U Cannabinoids Screen Ethyl Alcohol GARY Screen Hepatitis A IgM Ab Hep Bs Antigen Hep B Core IgM Ab Hep C IgG Ab HIV 1&2 Ab/P24 Ag 4thGn 02/03/18 02/03/18 02/03/18 15:45 15:45 15:45 WBC RBC Hgb Hct MCV MCH MCHC RDW Plt Count MPV Neut % (Auto) Lymph % (Auto) [place] % (Auto) Eos % (Auto) Baso % (Auto) Neut # (Auto) Lymph # (Auto) [place] # (Auto) Eos # (Auto) Baso # (Auto) CBC Comment Total Counted Neutrophils % (Manual) Band Neutrophils % Lymphocytes % Monocytes % Eosinophils % Neutrophils # (Manual) Metamyelocytes Nucleated RBCs Differential Comment Toxic Granulation Toxic Vacuolation Dohle Bodies Platelet Estimate Plt Morphology Comment Target Cells Tear Drop Cells Amanda Cells RBC Morph Comment PT INR APTT Fibrinogen Puncture Site Patient Temperature HCO3 Base Excess O2 Saturation ABG pH ABG pCO2 ABG pO2 ABG O2 Content ABG Carboxyhemoglobin ABG Methemoglobin Hemoglobin O2 Delivery Device Vent Setting Inspired O2 Sodium Potassium Chloride Carbon Dioxide Anion Gap BUN Creatinine Estimated GFR POC Glucose Random Glucose Serum Osmolality Lactic Acid Calcium Prot Corrected Calcium Phosphorus Magnesium Iron TIBC % Saturation Ferritin Total Bilirubin AST ALT Alkaline Phosphatase Ammonia LESS THAN 10 L Total Creatine Kinase CK-MB (CK-2) CK-MB (CK-2) % Troponin I Total Protein Albumin Prealbumin Dhhjz-8-Vsosmumwiqe 433 H Amylase Lipase Tumor Marker AFP TSH 3rd Generation Urine Color Urine Turbidity Urine pH Ur Specific [place] Urine Protein Urine Glucose (UA) Urine Ketones Urine Occult Blood Urine Nitrite Urine Bilirubin Urine Urobilinogen Ur Leukocyte Esterase Urine RBC Urine WBC Urine Bacteria Micro UA Comment Urine Osmolality Ur Random Creatinine Ur Random Sodium Pleural pH Pleural WBC Pleural RBC Pleural Neutrophils Pleural Lymphocytes Pleural Monocytes Pleural Fluid Comment Pleural Total Protein Pleural LDH Pleural Glucose Nasal Screen MRSA (PCR) Random Vancomycin Salicylates Urine Opiates Screen Acetaminophen Ur Barbiturates Screen Ur Amphetamines Screen U Benzodiazepines Scrn Urine Cocaine Screen U Cannabinoids Screen Ethyl Alcohol GARY Screen NEG Hepatitis A IgM Ab Hep Bs Antigen Hep B Core IgM Ab Hep C IgG Ab HIV 1&2 Ab/P24 Ag 4thGn 02/04/18 02/04/18 02/04/18 04:55 04:55 04:55 WBC RBC Hgb Hct MCV MCH MCHC RDW Plt Count MPV Neut % (Auto) Lymph % (Auto) [place] % (Auto) Eos % (Auto) Baso % (Auto) Neut # (Auto) Lymph # (Auto) [place] # (Auto) Eos # (Auto) Baso # (Auto) CBC Comment Total Counted Neutrophils % (Manual) Band Neutrophils % Lymphocytes % Monocytes % Eosinophils % Neutrophils # (Manual) Metamyelocytes Nucleated RBCs Differential Comment Toxic Granulation Toxic Vacuolation Dohle Bodies Platelet Estimate Plt Morphology Comment Target Cells Tear Drop Cells [place] Cells RBC Morph Comment PT 11.0 INR 1.1 APTT 39.9 H Fibrinogen Puncture Site Patient Temperature HCO3 Base Excess O2 Saturation ABG pH ABG pCO2 ABG pO2 ABG O2 Content ABG Carboxyhemoglobin ABG Methemoglobin Hemoglobin O2 Delivery Device Vent Setting Inspired O2 Sodium 131 L Potassium 4.0 Chloride 86 L Carbon Dioxide 20.4 L Anion Gap 25 H BUN 93 H Creatinine 5.87 H Estimated GFR 10 L POC Glucose Random Glucose 218 H Serum Osmolality Lactic Acid 6.2 H* Calcium 5.9 L* Prot Corrected Calcium 7.2 L* Phosphorus 8.0 H D Magnesium 1.8 Iron 30 L TIBC 126 L % Saturation 23.8 Ferritin 2246 H Total Bilirubin 3.8 H AST 1034 H ALT 184 H Alkaline Phosphatase 89 Ammonia Total Creatine Kinase 3357 H CK-MB (CK-2) 13.8 H CK-MB (CK-2) % 0.4 Troponin I Total Protein 4.4 L Albumin 1.2 L Prealbumin Gnfub-1-Qclscqfnzed Amylase 49 Lipase 102 Tumor Marker AFP TSH 3rd Generation Urine Color Urine Turbidity Urine pH Ur Specific [place] Urine Protein Urine Glucose (UA) Urine Ketones Urine Occult Blood Urine Nitrite Urine Bilirubin Urine Urobilinogen Ur Leukocyte Esterase Urine RBC Urine WBC Urine Bacteria Micro UA Comment Urine Osmolality Ur Random Creatinine Ur Random Sodium Pleural pH Pleural WBC Pleural RBC Pleural Neutrophils Pleural Lymphocytes Pleural Monocytes Pleural Fluid Comment Pleural Total Protein Pleural LDH Pleural Glucose Nasal Screen MRSA (PCR) Random Vancomycin 20.4 Salicylates Urine Opiates Screen Acetaminophen Ur Barbiturates Screen Ur Amphetamines Screen U Benzodiazepines Scrn Urine Cocaine Screen U Cannabinoids Screen Ethyl Alcohol GARY Screen Hepatitis A IgM Ab Hep Bs Antigen Hep B Core IgM Ab Hep C IgG Ab HIV 1&2 Ab/P24 Ag 4thGn 02/04/18 02/04/18 02/04/18 04:55 08:10 12:46 WBC 14.4 H RBC 4.09 L Hgb 12.2 L Hct 36.0 L MCV 88.2 MCH 29.8 MCHC 33.8 RDW 16.1 Plt Count 76 L MPV 10.8 Neut % (Auto) 93.9 H Lymph % (Auto) 3.0 L [place] % (Auto) 0.5 Eos % (Auto) 2.0 Baso % (Auto) 0.6 Neut # (Auto) 13.6 H Lymph # (Auto) 0.4 L [place] # (Auto) 0.1 Eos # (Auto) 0.3 Baso # (Auto) 0.1 CBC Comment AUTO DIFF Total Counted 100 Neutrophils % (Manual) 56 Band Neutrophils % 38 H Lymphocytes % Monocytes % 4 Eosinophils % Neutrophils # (Manual) 13.8 H Metamyelocytes 2 H Nucleated RBCs 3 H Differential Comment FINAL DIFF MANUAL Toxic Granulation 1+ H Toxic Vacuolation Dohle Bodies PRESENT H Platelet Estimate LOW L Plt Morphology Comment ENLARGED H Target Cells Tear Drop Cells Amanda Cells RBC Morph Comment NORMAL PT INR APTT Fibrinogen Puncture Site ART LINE Patient Temperature 98.6 HCO3 23 Base Excess -0.9 O2 Saturation 95 ABG pH 7.43 H ABG pCO2 36 L ABG pO2 101 ABG O2 Content 15.9 ABG Carboxyhemoglobin 0.6 ABG Methemoglobin 1.6 Hemoglobin 11.9 L O2 Delivery Device VENTILATOR Vent Setting A/C 650/18/5PEEP Inspired O2 40 Sodium 130 L Potassium 3.9 Chloride 84 L Carbon Dioxide 27.1 Anion Gap 19 H BUN 97 H Creatinine 5.78 H Estimated GFR 10 L POC Glucose Random Glucose 193 H Serum Osmolality Lactic Acid Calcium 5.5 L* Prot Corrected Calcium 6.7 L* D Phosphorus Magnesium Iron TIBC % Saturation Ferritin Total Bilirubin AST ALT Alkaline Phosphatase Ammonia Total Creatine Kinase 3765 H CK-MB (CK-2) 12.6 H CK-MB (CK-2) % 0.3 Troponin I Total Protein 4.3 L Albumin Prealbumin Fjxjd-3-Mgbnykmmdhm Amylase Lipase Tumor Marker AFP TSH 3rd Generation Urine Color Urine Turbidity Urine pH Ur Specific [place] Urine Protein Urine Glucose (UA) Urine Ketones Urine Occult Blood Urine Nitrite Urine Bilirubin Urine Urobilinogen Ur Leukocyte Esterase Urine RBC Urine WBC Urine Bacteria Micro UA Comment Urine Osmolality Ur Random Creatinine Ur Random Sodium Pleural pH Pleural WBC Pleural RBC Pleural Neutrophils Pleural Lymphocytes Pleural Monocytes Pleural Fluid Comment Pleural Total Protein Pleural LDH Pleural Glucose Nasal Screen MRSA (PCR) Random Vancomycin Salicylates Urine Opiates Screen Acetaminophen Ur Barbiturates Screen Ur Amphetamines Screen U Benzodiazepines Scrn Urine Cocaine Screen U Cannabinoids Screen Ethyl Alcohol GARY Screen Hepatitis A IgM Ab Hep Bs Antigen Hep B Core IgM Ab Hep C IgG Ab HIV 1&2 Ab/P24 Ag 4thGn 02/04/18 02/05/18 02/05/18 16:30 01:30 01:30 WBC RBC Hgb Hct MCV MCH MCHC RDW Plt Count MPV Neut % (Auto) Lymph % (Auto) [place] % (Auto) Eos % (Auto) Baso % (Auto) Neut # (Auto) Lymph # (Auto) [place] # (Auto) Eos # (Auto) Baso # (Auto) CBC Comment Total Counted Neutrophils % (Manual) Band Neutrophils % Lymphocytes % Monocytes % Eosinophils % Neutrophils # (Manual) Metamyelocytes Nucleated RBCs Differential Comment Toxic Granulation Toxic Vacuolation Dohle Bodies Platelet Estimate Plt Morphology Comment Target Cells Tear Drop Cells [place] Cells RBC Morph Comment PT INR APTT 37.5 H Fibrinogen Puncture Site Patient Temperature HCO3 Base Excess O2 Saturation ABG pH ABG pCO2 ABG pO2 ABG O2 Content ABG Carboxyhemoglobin ABG Methemoglobin Hemoglobin O2 Delivery Device Vent Setting Inspired O2 Sodium Cancelled 130 L Potassium Cancelled 3.5 Chloride Cancelled 86 L Carbon Dioxide Cancelled 29.1 Anion Gap Cancelled 15 BUN Cancelled 83 H D Creatinine Cancelled 4.35 H D Estimated GFR Cancelled 14 L POC Glucose Random Glucose Cancelled 180 H Serum Osmolality Lactic Acid Calcium Cancelled 5.1 L* Prot Corrected Calcium 6.2 L* D Phosphorus 4.7 D Magnesium 1.6 Iron TIBC % Saturation Ferritin Total Bilirubin 4.2 H AST 729 H ALT 145 H Alkaline Phosphatase 125 H Ammonia Total Creatine Kinase CK-MB (CK-2) CK-MB (CK-2) % Troponin I Total Protein 4.4 L Albumin 1.2 L Prealbumin Svyfb-1-Uczathpjteb Amylase Lipase Tumor Marker AFP TSH 3rd Generation Urine Color Urine Turbidity Urine pH Ur Specific [place] Urine Protein Urine Glucose (UA) Urine Ketones Urine Occult Blood Urine Nitrite Urine Bilirubin Urine Urobilinogen Ur Leukocyte Esterase Urine RBC Urine WBC Urine Bacteria Micro UA Comment Urine Osmolality Ur Random Creatinine Ur Random Sodium Pleural pH Pleural WBC Pleural RBC Pleural Neutrophils Pleural Lymphocytes Pleural Monocytes Pleural Fluid Comment Pleural Total Protein Pleural LDH Pleural Glucose Nasal Screen MRSA (PCR) Random Vancomycin Salicylates Urine Opiates Screen Acetaminophen Ur Barbiturates Screen Ur Amphetamines Screen U Benzodiazepines Scrn Urine Cocaine Screen U Cannabinoids Screen Ethyl Alcohol GARY Screen Hepatitis A IgM Ab Hep Bs Antigen Hep B Core IgM Ab Hep C IgG Ab HIV 1&2 Ab/P24 Ag 4thGn 02/05/18 02/05/18 02/05/18 01:30 01:30 01:30 WBC 18.0 H RBC 3.98 L Hgb 12.0 L Hct 34.5 L MCV 86.7 MCH 30.2 MCHC 34.8 RDW 16.8 Plt Count 69 L MPV 11.3 H Neut % (Auto) Lymph % (Auto) [place] % (Auto) Eos % (Auto) Baso % (Auto) Neut # (Auto) Lymph # (Auto) [place] # (Auto) Eos # (Auto) Baso # (Auto) CBC Comment AUTO DIFF Total Counted 100 Neutrophils % (Manual) 71 H Band Neutrophils % 20 H Lymphocytes % 1 L Monocytes % 3 Eosinophils % Neutrophils # (Manual) 17.3 H Metamyelocytes 5 H Nucleated RBCs Differential Comment FINAL DIFF MANUAL Toxic Granulation 1+ H Toxic Vacuolation PRESENT H Dohle Bodies PRESENT H Platelet Estimate LOW L Plt Morphology Comment ENLARGED H Target Cells 1+ H Tear Drop Cells 3+ H Amanda Cells RBC Morph Comment PT 10.4 INR 1.0 APTT 38.6 H Fibrinogen Puncture Site Patient Temperature HCO3 Base Excess O2 Saturation ABG pH ABG pCO2 ABG pO2 ABG O2 Content ABG Carboxyhemoglobin ABG Methemoglobin Hemoglobin O2 Delivery Device Vent Setting Inspired O2 Sodium Potassium Chloride Carbon Dioxide Anion Gap BUN Creatinine Estimated GFR POC Glucose Random Glucose Serum Osmolality Lactic Acid 3.2 H Calcium Prot Corrected Calcium Phosphorus Magnesium Iron TIBC % Saturation Ferritin Total Bilirubin AST ALT Alkaline Phosphatase Ammonia Total Creatine Kinase CK-MB (CK-2) CK-MB (CK-2) % Troponin I Total Protein Albumin Prealbumin Bnqrw-3-Rhbtepxpiwk Amylase Lipase Tumor Marker AFP TSH 3rd Generation Urine Color Urine Turbidity Urine pH Ur Specific [place] Urine Protein Urine Glucose (UA) Urine Ketones Urine Occult Blood Urine Nitrite Urine Bilirubin Urine Urobilinogen Ur Leukocyte Esterase Urine RBC Urine WBC Urine Bacteria Micro UA Comment Urine Osmolality Ur Random Creatinine Ur Random Sodium Pleural pH Pleural WBC Pleural RBC Pleural Neutrophils Pleural Lymphocytes Pleural Monocytes Pleural Fluid Comment Pleural Total Protein Pleural LDH Pleural Glucose Nasal Screen MRSA (PCR) Random Vancomycin Salicylates Urine Opiates Screen Acetaminophen Ur Barbiturates Screen Ur Amphetamines Screen U Benzodiazepines Scrn Urine Cocaine Screen U Cannabinoids Screen Ethyl Alcohol GARY Screen Hepatitis A IgM Ab Hep Bs Antigen Hep B Core IgM Ab Hep C IgG Ab HIV 1&2 Ab/P24 Ag 4thGn 02/05/18 02/06/18 02/06/18 21:00 03:40 03:40 WBC 24.5 H RBC 3.97 L Hgb 11.7 L Hct 35.0 L MCV 88.1 MCH 29.3 MCHC 33.3 RDW 17.0 Plt Count 66 L MPV 11.0 Neut % (Auto) Lymph % (Auto) [place] % (Auto) Eos % (Auto) Baso % (Auto) Neut # (Auto) Lymph # (Auto) [place] # (Auto) Eos # (Auto) Baso # (Auto) CBC Comment Total Counted Neutrophils % (Manual) Band Neutrophils % Lymphocytes % Monocytes % Eosinophils % Neutrophils # (Manual) Metamyelocytes Nucleated RBCs Differential Comment Toxic Granulation Toxic Vacuolation Dohle Bodies Platelet Estimate Plt Morphology Comment Target Cells Tear Drop Cells Logan Cells RBC Morph Comment PT 10.7 INR 1.1 APTT 34.5 H Fibrinogen 681 H Puncture Site Patient Temperature HCO3 Base Excess O2 Saturation ABG pH ABG pCO2 ABG pO2 ABG O2 Content ABG Carboxyhemoglobin ABG Methemoglobin Hemoglobin O2 Delivery Device Vent Setting Inspired O2 Sodium 133 L Potassium 3.7 Chloride 89 L Carbon Dioxide 23.6 Anion Gap 20 H BUN 57 H D Creatinine 2.98 H D Estimated GFR 22 L POC Glucose Random Glucose 187 H Serum Osmolality Lactic Acid Calcium LESS THAN 5.0 L* Prot Corrected Calcium Phosphorus Magnesium Iron TIBC % Saturation Ferritin Total Bilirubin AST ALT Alkaline Phosphatase Ammonia Total Creatine Kinase CK-MB (CK-2) CK-MB (CK-2) % Troponin I Total Protein Albumin Prealbumin Zicvi-5-Xrdgpslctke Amylase Lipase Tumor Marker AFP TSH 3rd Generation Urine Color Urine Turbidity Urine pH Ur Specific [place] Urine Protein Urine Glucose (UA) Urine Ketones Urine Occult Blood Urine Nitrite Urine Bilirubin Urine Urobilinogen Ur Leukocyte Esterase Urine RBC Urine WBC Urine Bacteria Micro UA Comment Urine Osmolality Ur Random Creatinine Ur Random Sodium Pleural pH Pleural WBC Pleural RBC Pleural Neutrophils Pleural Lymphocytes Pleural Monocytes Pleural Fluid Comment Pleural Total Protein Pleural LDH Pleural Glucose Nasal Screen MRSA (PCR) Random Vancomycin Salicylates Urine Opiates Screen Acetaminophen Ur Barbiturates Screen Ur Amphetamines Screen U Benzodiazepines Scrn Urine Cocaine Screen U Cannabinoids Screen Ethyl Alcohol GARY Screen Hepatitis A IgM Ab Hep Bs Antigen Hep B Core IgM Ab Hep C IgG Ab HIV 1&2 Ab/P24 Ag 4thGn 02/06/18 02/06/18 02/06/18 03:40 08:00 10:24 WBC RBC Hgb Hct MCV MCH MCHC RDW Plt Count MPV Neut % (Auto) Lymph % (Auto) [place] % (Auto) Eos % (Auto) Baso % (Auto) Neut # (Auto) Lymph # (Auto) [place] # (Auto) Eos # (Auto) Baso # (Auto) CBC Comment Total Counted Neutrophils % (Manual) Band Neutrophils % Lymphocytes % Monocytes % Eosinophils % Neutrophils # (Manual) Metamyelocytes Nucleated RBCs Differential Comment Toxic Granulation Toxic Vacuolation Dohle Bodies Platelet Estimate Plt Morphology Comment Target Cells Tear Drop Cells [place] Cells RBC Morph Comment PT INR APTT Fibrinogen Puncture Site Patient Temperature HCO3 Base Excess O2 Saturation ABG pH ABG pCO2 ABG pO2 ABG O2 Content ABG Carboxyhemoglobin ABG Methemoglobin Hemoglobin O2 Delivery Device Vent Setting Inspired O2 Sodium 134 L 132 L Potassium 3.6 4.0 Chloride 91 L 90 L Carbon Dioxide 22.6 24.1 Anion Gap 20 H 18 H BUN 62 H 67 H Creatinine 3.45 H 3.79 H Estimated GFR 19 L 17 L POC Glucose 250 H Random Glucose 205 H 229 H Serum Osmolality Lactic Acid Calcium 6.2 L* 6.2 L* Prot Corrected Calcium 7.4 L* 7.5 L Phosphorus 4.4 Magnesium 1.8 Iron TIBC % Saturation Ferritin Total Bilirubin 4.6 H AST 486 H ALT 118 H Alkaline Phosphatase 163 H Ammonia Total Creatine Kinase CK-MB (CK-2) CK-MB (CK-2) % Troponin I Total Protein 4.6 L 4.4 L Albumin 1.1 L Prealbumin 4 L Txscd-3-Opifroviceb Amylase Lipase Tumor Marker AFP TSH 3rd Generation Urine Color Urine Turbidity Urine pH Ur Specific [place] Urine Protein Urine Glucose (UA) Urine Ketones Urine Occult Blood Urine Nitrite Urine Bilirubin Urine Urobilinogen Ur Leukocyte Esterase Urine RBC Urine WBC Urine Bacteria Micro UA Comment Urine Osmolality Ur Random Creatinine Ur Random Sodium Pleural pH Pleural WBC Pleural RBC Pleural Neutrophils Pleural Lymphocytes Pleural Monocytes Pleural Fluid Comment Pleural Total Protein Pleural LDH Pleural Glucose Nasal Screen MRSA (PCR) Random Vancomycin Salicylates Urine Opiates Screen Acetaminophen Ur Barbiturates Screen Ur Amphetamines Screen U Benzodiazepines Scrn Urine Cocaine Screen U Cannabinoids Screen Ethyl Alcohol GARY Screen Hepatitis A IgM Ab Hep Bs Antigen Hep B Core IgM Ab Hep C IgG Ab HIV 1&2 Ab/P24 Ag 4thGn 02/06/18 02/06/18 02/06/18 12:50 16:23 18:06 WBC RBC Hgb Hct MCV MCH MCHC RDW Plt Count MPV Neut % (Auto) Lymph % (Auto) [place] % (Auto) Eos % (Auto) Baso % (Auto) Neut # (Auto) Lymph # (Auto) [place] # (Auto) Eos # (Auto) Baso # (Auto) CBC Comment Total Counted Neutrophils % (Manual) Band Neutrophils % Lymphocytes % Monocytes % Eosinophils % Neutrophils # (Manual) Metamyelocytes Nucleated RBCs Differential Comment Toxic Granulation Toxic Vacuolation Dohle Bodies Platelet Estimate Plt Morphology Comment Target Cells Tear Drop Cells Amanda Cells RBC Morph Comment PT INR APTT Fibrinogen Puncture Site Patient Temperature HCO3 Base Excess O2 Saturation ABG pH ABG pCO2 ABG pO2 ABG O2 Content ABG Carboxyhemoglobin ABG Methemoglobin Hemoglobin O2 Delivery Device Vent Setting Inspired O2 Sodium 138 138 Potassium 3.4 L 3.7 Chloride 99 D 98 Carbon Dioxide 20.5 L 28.5 Anion Gap 19 H 12 BUN 60 H 47 H Creatinine 3.34 H 2.99 H Estimated GFR 19 L 22 L POC Glucose 171 H Random Glucose 216 H 206 H Serum Osmolality Lactic Acid Calcium 5.2 L* D 7.0 L* D Prot Corrected Calcium 6.7 L* D 8.5 D Phosphorus Magnesium Iron TIBC % Saturation Ferritin Total Bilirubin AST ALT Alkaline Phosphatase Ammonia Total Creatine Kinase CK-MB (CK-2) CK-MB (CK-2) % Troponin I Total Protein 3.6 L D 4.4 L D Albumin Prealbumin Fynms-5-Hqkvuafwvfx Amylase Lipase Tumor Marker AFP TSH 3rd Generation Urine Color Urine Turbidity Urine pH Ur Specific [place] Urine Protein Urine Glucose (UA) Urine Ketones Urine Occult Blood Urine Nitrite Urine Bilirubin Urine Urobilinogen Ur Leukocyte Esterase Urine RBC Urine WBC Urine Bacteria Micro UA Comment Urine Osmolality Ur Random Creatinine Ur Random Sodium Pleural pH Pleural WBC Pleural RBC Pleural Neutrophils Pleural Lymphocytes Pleural Monocytes Pleural Fluid Comment Pleural Total Protein Pleural LDH Pleural Glucose Nasal Screen MRSA (PCR) Random Vancomycin Salicylates Urine Opiates Screen Acetaminophen Ur Barbiturates Screen Ur Amphetamines Screen U Benzodiazepines Scrn Urine Cocaine Screen U Cannabinoids Screen Ethyl Alcohol GARY Screen Hepatitis A IgM Ab Hep Bs Antigen Hep B Core IgM Ab Hep C IgG Ab HIV 1&2 Ab/P24 Ag 4thGn 02/06/18 02/06/18 02/06/18 18:06 20:54 21:35 WBC RBC Hgb Hct MCV MCH MCHC RDW Plt Count MPV Neut % (Auto) Lymph % (Auto) [place] % (Auto) Eos % (Auto) Baso % (Auto) Neut # (Auto) Lymph # (Auto) [place] # (Auto) Eos # (Auto) Baso # (Auto) CBC Comment Total Counted Neutrophils % (Manual) Band Neutrophils % Lymphocytes % Monocytes % Eosinophils % Neutrophils # (Manual) Metamyelocytes Nucleated RBCs Differential Comment Toxic Granulation Toxic Vacuolation Dohle Bodies Platelet Estimate Plt Morphology Comment Target Cells Tear Drop Cells Logan Cells RBC Morph Comment PT INR APTT Fibrinogen Puncture Site Patient Temperature HCO3 Base Excess O2 Saturation ABG pH ABG pCO2 ABG pO2 ABG O2 Content ABG Carboxyhemoglobin ABG Methemoglobin Hemoglobin O2 Delivery Device Vent Setting Inspired O2 Sodium 139 Potassium 3.8 Chloride 98 Carbon Dioxide 29.0 Anion Gap 12 BUN 48 H Creatinine 3.31 H Estimated GFR 19 L POC Glucose 204 H Random Glucose 212 H Serum Osmolality Lactic Acid Calcium 6.8 L* Prot Corrected Calcium 8.2 L Phosphorus 2.9 D Magnesium 2.1 Iron TIBC % Saturation Ferritin Total Bilirubin AST ALT Alkaline Phosphatase Ammonia Total Creatine Kinase CK-MB (CK-2) CK-MB (CK-2) % Troponin I Total Protein 4.4 L Albumin Prealbumin Guyec-5-Urvbwmcbmdg Amylase Lipase Tumor Marker AFP TSH 3rd Generation Urine Color Urine Turbidity Urine pH Ur Specific [place] Urine Protein Urine Glucose (UA) Urine Ketones Urine Occult Blood Urine Nitrite Urine Bilirubin Urine Urobilinogen Ur Leukocyte Esterase Urine RBC Urine WBC Urine Bacteria Micro UA Comment Urine Osmolality Ur Random Creatinine Ur Random Sodium Pleural pH Pleural WBC Pleural RBC Pleural Neutrophils Pleural Lymphocytes Pleural Monocytes Pleural Fluid Comment Pleural Total Protein Pleural LDH Pleural Glucose Nasal Screen MRSA (PCR) Random Vancomycin Salicylates Urine Opiates Screen Acetaminophen Ur Barbiturates Screen Ur Amphetamines Screen U Benzodiazepines Scrn Urine Cocaine Screen U Cannabinoids Screen Ethyl Alcohol GARY Screen Hepatitis A IgM Ab Hep Bs Antigen Hep B Core IgM Ab Hep C IgG Ab HIV 1&2 Ab/P24 Ag 4thGn 02/07/18 02/07/18 02/07/18 05:44 05:44 05:44 WBC 15.0 H RBC 3.42 L Hgb 10.2 L Hct 30.0 L MCV 87.9 MCH 29.8 MCHC 33.9 RDW 17.1 Plt Count 32 L D MPV 11.1 H Neut % (Auto) Lymph % (Auto) [place] % (Auto) Eos % (Auto) Baso % (Auto) Neut # (Auto) Lymph # (Auto) [place] # (Auto) Eos # (Auto) Baso # (Auto) CBC Comment Total Counted Neutrophils % (Manual) Band Neutrophils % Lymphocytes % Monocytes % Eosinophils % Neutrophils # (Manual) Metamyelocytes Nucleated RBCs Differential Comment Toxic Granulation Toxic Vacuolation Dohle Bodies Platelet Estimate Plt Morphology Comment Target Cells Tear Drop Cells Amanda Cells RBC Morph Comment PT 11.1 INR 1.1 APTT 32.4 H Fibrinogen 452 H Puncture Site Patient Temperature HCO3 Base Excess O2 Saturation ABG pH ABG pCO2 ABG pO2 ABG O2 Content ABG Carboxyhemoglobin ABG Methemoglobin Hemoglobin O2 Delivery Device Vent Setting Inspired O2 Sodium 137 Potassium 3.8 Chloride 97 L Carbon Dioxide 23.7 Anion Gap 16 H BUN 59 H Creatinine 3.64 H Estimated GFR 17 L POC Glucose Random Glucose 248 H Serum Osmolality Lactic Acid Calcium 7.8 L D Prot Corrected Calcium Phosphorus 5.4 H D Magnesium 2.2 Iron TIBC % Saturation Ferritin Total Bilirubin 4.6 H AST 229 H ALT 76 Alkaline Phosphatase 164 H Ammonia Total Creatine Kinase CK-MB (CK-2) CK-MB (CK-2) % Troponin I Total Protein 4.3 L Albumin 0.9 L Prealbumin Sjhva-0-Poktclypawd Amylase Lipase Tumor Marker AFP TSH 3rd Generation Urine Color Urine Turbidity Urine pH Ur Specific [place] Urine Protein Urine Glucose (UA) Urine Ketones Urine Occult Blood Urine Nitrite Urine Bilirubin Urine Urobilinogen Ur Leukocyte Esterase Urine RBC Urine WBC Urine Bacteria Micro UA Comment Urine Osmolality Ur Random Creatinine Ur Random Sodium Pleural pH Pleural WBC Pleural RBC Pleural Neutrophils Pleural Lymphocytes Pleural Monocytes Pleural Fluid Comment Pleural Total Protein Pleural LDH Pleural Glucose Nasal Screen MRSA (PCR) Random Vancomycin Salicylates Urine Opiates Screen Acetaminophen Ur Barbiturates Screen Ur Amphetamines Screen U Benzodiazepines Scrn Urine Cocaine Screen U Cannabinoids Screen Ethyl Alcohol GARY Screen Hepatitis A IgM Ab Hep Bs Antigen Hep B Core IgM Ab Hep C IgG Ab HIV 1&2 Ab/P24 Ag 4thGn Result Diagrams: 02/07/18 08:30 02/07/18 08:30 Microbiology: Laboratory Tests 02/02/18 02/02/18 02/02/18 16:22 16:22 16:22 WBC RBC Hgb Hct MCV MCH MCHC RDW Plt Count MPV Neut % (Auto) Lymph % (Auto) [place] % (Auto) Eos % (Auto) Baso % (Auto) Neut # (Auto) Lymph # (Auto) [place] # (Auto) Eos # (Auto) Baso # (Auto) CBC Comment Total Counted Neutrophils % (Manual) Band Neutrophils % Lymphocytes % Monocytes % Eosinophils % Neutrophils # (Manual) Metamyelocytes Nucleated RBCs Differential Comment Toxic Granulation Toxic Vacuolation Dohle Bodies Platelet Estimate Plt Morphology Comment Target Cells Tear Drop Cells [place] Cells RBC Morph Comment PT INR APTT Fibrinogen Puncture Site Patient Temperature HCO3 Base Excess O2 Saturation ABG pH ABG pCO2 ABG pO2 ABG O2 Content ABG Carboxyhemoglobin ABG Methemoglobin Hemoglobin O2 Delivery Device Vent Setting Inspired O2 Sodium 133 L Potassium 3.4 L Chloride 96 L Carbon Dioxide 10.9 L Anion Gap 26 H BUN 81 H Creatinine 5.71 H Estimated GFR 10 L POC Glucose Random Glucose 142 H Serum Osmolality Lactic Acid Calcium 5.8 L* Prot Corrected Calcium 6.5 L* Phosphorus Magnesium Iron TIBC % Saturation Ferritin Total Bilirubin 1.7 H AST 1685 H ALT 307 H Alkaline Phosphatase 66 Ammonia LESS THAN 10 L Total Creatine Kinase 1286 H CK-MB (CK-2) 8.6 H CK-MB (CK-2) % 0.7 Troponin I 0.03 Total Protein 5.4 L D Albumin 1.8 L Prealbumin Vsjup-2-Vddepvcqbmb Amylase Lipase Tumor Marker AFP TSH 3rd Generation 1.610 Urine Color Urine Turbidity Urine pH Ur Specific [place] Urine Protein Urine Glucose (UA) Urine Ketones Urine Occult Blood Urine Nitrite Urine Bilirubin Urine Urobilinogen Ur Leukocyte Esterase Urine RBC Urine WBC Urine Bacteria Micro UA Comment Urine Osmolality Ur Random Creatinine Ur Random Sodium Pleural pH Pleural WBC Pleural RBC Pleural Neutrophils Pleural Lymphocytes Pleural Monocytes Pleural Fluid Comment Pleural Total Protein Pleural LDH Pleural Glucose Nasal Screen MRSA (PCR) Random Vancomycin Salicylates 5.1 Urine Opiates Screen Acetaminophen LESS THAN 2.0 L Ur Barbiturates Screen Ur Amphetamines Screen U Benzodiazepines Scrn Urine Cocaine Screen U Cannabinoids Screen Ethyl Alcohol LESS THAN 3 GARY Screen Hepatitis A IgM Ab Hep Bs Antigen Hep B Core IgM Ab Hep C IgG Ab HIV 1&2 Ab/P24 Ag 4thGn 02/02/18 02/02/18 02/02/18 16:22 16:22 16:22 WBC 3.4 L RBC 4.98 Hgb 14.7 Hct 44.2 MCV 88.8 MCH 29.6 MCHC 33.3 RDW 15.9 Plt Count 50 L D MPV 11.3 H Neut % (Auto) 92.4 H Lymph % (Auto) 4.4 L [place] % (Auto) 2.6 Eos % (Auto) 0.4 Baso % (Auto) 0.2 Neut # (Auto) 3.2 Lymph # (Auto) 0.2 L [place] # (Auto) 0.1 Eos # (Auto) 0.0 Baso # (Auto) 0.0 CBC Comment AUTO DIFF Total Counted 100 Neutrophils % (Manual) 63 Band Neutrophils % 30 H Lymphocytes % 4 L Monocytes % 2 Eosinophils % 1 Neutrophils # (Manual) 3.2 Metamyelocytes Nucleated RBCs Differential Comment FINAL DIFF MANUAL Toxic Granulation 3+ H Toxic Vacuolation PRESENT H Dohle Bodies PRESENT H Platelet Estimate LOW L Plt Morphology Comment NORMAL Target Cells Tear Drop Cells Amanda Cells 2+ H RBC Morph Comment PT 12.0 H INR 1.2 APTT 32.9 H Fibrinogen Puncture Site Patient Temperature HCO3 Base Excess O2 Saturation ABG pH ABG pCO2 ABG pO2 ABG O2 Content ABG Carboxyhemoglobin ABG Methemoglobin Hemoglobin O2 Delivery Device Vent Setting Inspired O2 Sodium Potassium Chloride Carbon Dioxide Anion Gap BUN Creatinine Estimated GFR POC Glucose Random Glucose Serum Osmolality Lactic Acid Calcium Prot Corrected Calcium Phosphorus Magnesium Iron TIBC % Saturation Ferritin Total Bilirubin AST ALT Alkaline Phosphatase Ammonia Total Creatine Kinase CK-MB (CK-2) CK-MB (CK-2) % Troponin I Total Protein Albumin Prealbumin LESS THAN 3 L Jwlcj-2-Ffiuwggpodf Amylase Lipase Tumor Marker AFP TSH 3rd Generation Urine Color Urine Turbidity Urine pH Ur Specific [place] Urine Protein Urine Glucose (UA) Urine Ketones Urine Occult Blood Urine Nitrite Urine Bilirubin Urine Urobilinogen Ur Leukocyte Esterase Urine RBC Urine WBC Urine Bacteria Micro UA Comment Urine Osmolality Ur Random Creatinine Ur Random Sodium Pleural pH Pleural WBC Pleural RBC Pleural Neutrophils Pleural Lymphocytes Pleural Monocytes Pleural Fluid Comment Pleural Total Protein Pleural LDH Pleural Glucose Nasal Screen MRSA (PCR) Random Vancomycin Salicylates Urine Opiates Screen Acetaminophen Ur Barbiturates Screen Ur Amphetamines Screen U Benzodiazepines Scrn Urine Cocaine Screen U Cannabinoids Screen Ethyl Alcohol GARY Screen Hepatitis A IgM Ab Hep Bs Antigen Hep B Core IgM Ab Hep C IgG Ab HIV 1&2 Ab/P24 Ag 4thGn 02/02/18 02/02/18 02/02/18 16:22 17:09 17:14 WBC RBC Hgb Hct MCV MCH MCHC RDW Plt Count MPV Neut % (Auto) Lymph % (Auto) [place] % (Auto) Eos % (Auto) Baso % (Auto) Neut # (Auto) Lymph # (Auto) [place] # (Auto) Eos # (Auto) Baso # (Auto) CBC Comment Total Counted Neutrophils % (Manual) Band Neutrophils % Lymphocytes % Monocytes % Eosinophils % Neutrophils # (Manual) Metamyelocytes Nucleated RBCs Differential Comment Toxic Granulation Toxic Vacuolation Dohle Bodies Platelet Estimate Plt Morphology Comment Target Cells Tear Drop Cells Amanda Cells RBC Morph Comment PT INR APTT Fibrinogen Puncture Site Patient Temperature HCO3 Base Excess O2 Saturation ABG pH ABG pCO2 ABG pO2 ABG O2 Content ABG Carboxyhemoglobin ABG Methemoglobin Hemoglobin O2 Delivery Device Vent Setting Inspired O2 Sodium Potassium Chloride Carbon Dioxide Anion Gap BUN Creatinine Estimated GFR POC Glucose Random Glucose Serum Osmolality 304 H Lactic Acid 6.5 H* Calcium Prot Corrected Calcium Phosphorus Magnesium Iron TIBC % Saturation Ferritin Total Bilirubin AST ALT Alkaline Phosphatase Ammonia Total Creatine Kinase CK-MB (CK-2) CK-MB (CK-2) % Troponin I Total Protein Albumin Prealbumin Tlmho-7-Ckcvlntrges Amylase Lipase Tumor Marker AFP TSH 3rd Generation Urine Color Taisha Urine Turbidity CLOUDY H Urine pH 5.0 Ur Specific [place] 1.017 Urine Protein 100 H Urine Glucose (UA) 50 Urine Ketones NEG Urine Occult Blood LARGE H Urine Nitrite NEG Urine Bilirubin NEG Urine Urobilinogen 2.0 H Ur Leukocyte Esterase NEG Urine RBC Urine WBC Urine Bacteria FEW H Micro UA Comment CATH-CULTURE IND Urine Osmolality Ur Random Creatinine Ur Random Sodium Pleural pH Pleural WBC Pleural RBC Pleural Neutrophils Pleural Lymphocytes Pleural Monocytes Pleural Fluid Comment Pleural Total Protein Pleural LDH Pleural Glucose Nasal Screen MRSA (PCR) Random Vancomycin Salicylates Urine Opiates Screen Acetaminophen Ur Barbiturates Screen Ur Amphetamines Screen U Benzodiazepines Scrn Urine Cocaine Screen U Cannabinoids Screen Ethyl Alcohol AGRY Screen Hepatitis A IgM Ab Hep Bs Antigen Hep B Core IgM Ab Hep C IgG Ab HIV 1&2 Ab/P24 Ag 4thGn 02/02/18 02/02/18 02/02/18 17:20 17:21 17:21 WBC RBC Hgb Hct MCV MCH MCHC RDW Plt Count MPV Neut % (Auto) Lymph % (Auto) [place] % (Auto) Eos % (Auto) Baso % (Auto) Neut # (Auto) Lymph # (Auto) [place] # (Auto) Eos # (Auto) Baso # (Auto) CBC Comment Total Counted Neutrophils % (Manual) Band Neutrophils % Lymphocytes % Monocytes % Eosinophils % Neutrophils # (Manual) Metamyelocytes Nucleated RBCs Differential Comment Toxic Granulation Toxic Vacuolation Dohle Bodies Platelet Estimate Plt Morphology Comment Target Cells Tear Drop Cells Amanda Cells RBC Morph Comment PT INR APTT Fibrinogen Puncture Site LT FEMORAL Patient Temperature 98.6 HCO3 15 L* Base Excess -12.9 L O2 Saturation 97 ABG pH 7.13 L* ABG pCO2 47 H ABG pO2 212 H ABG O2 Content 17.8 ABG Carboxyhemoglobin 0.5 ABG Methemoglobin 0.8 Hemoglobin 12.7 O2 Delivery Device VENTILATOR Vent Setting AC/16/500/+5 Inspired O2 100 Sodium Potassium Chloride Carbon Dioxide Anion Gap BUN Creatinine Estimated GFR POC Glucose Random Glucose Serum Osmolality Lactic Acid Calcium Prot Corrected Calcium Phosphorus Magnesium Iron TIBC % Saturation Ferritin Total Bilirubin AST ALT Alkaline Phosphatase Ammonia Total Creatine Kinase CK-MB (CK-2) CK-MB (CK-2) % Troponin I Total Protein Albumin Prealbumin Npwko-0-Cphmtfrtqyy Amylase Lipase Tumor Marker AFP TSH 3rd Generation Urine Color Urine Turbidity Urine pH Ur Specific [place] Urine Protein Urine Glucose (UA) Urine Ketones Urine Occult Blood Urine Nitrite Urine Bilirubin Urine Urobilinogen Ur Leukocyte Esterase Urine RBC Urine WBC Urine Bacteria Micro UA Comment Urine Osmolality 328 Ur Random Creatinine 237.3 Ur Random Sodium 14 Pleural pH Pleural WBC Pleural RBC Pleural Neutrophils Pleural Lymphocytes Pleural Monocytes Pleural Fluid Comment Pleural Total Protein Pleural LDH Pleural Glucose Nasal Screen MRSA (PCR) Random Vancomycin Salicylates Urine Opiates Screen NEG Acetaminophen Ur Barbiturates Screen NEG Ur Amphetamines Screen NEG U Benzodiazepines Scrn POS H Urine Cocaine Screen NEG U Cannabinoids Screen POS H Ethyl Alcohol GARY Screen Hepatitis A IgM Ab Hep Bs Antigen Hep B Core IgM Ab Hep C IgG Ab HIV 1&2 Ab/P24 Ag 4thGn 02/02/18 02/02/18 02/02/18 18:03 21:30 21:30 WBC RBC Hgb Hct MCV MCH MCHC RDW Plt Count MPV Neut % (Auto) Lymph % (Auto) [place] % (Auto) Eos % (Auto) Baso % (Auto) Neut # (Auto) Lymph # (Auto) [place] # (Auto) Eos # (Auto) Baso # (Auto) CBC Comment Total Counted Neutrophils % (Manual) Band Neutrophils % Lymphocytes % Monocytes % Eosinophils % Neutrophils # (Manual) Metamyelocytes Nucleated RBCs Differential Comment Toxic Granulation Toxic Vacuolation Dohle Bodies Platelet Estimate Plt Morphology Comment Target Cells Tear Drop Cells Logan Cells RBC Morph Comment PT INR APTT Fibrinogen Puncture Site ART LINE Patient Temperature 98.6 HCO3 19 L Base Excess -5.7 L O2 Saturation 95 ABG pH 7.33 L ABG pCO2 37 L ABG pO2 129 H ABG O2 Content 16.1 ABG Carboxyhemoglobin 0.8 ABG Methemoglobin 1.5 Hemoglobin 11.9 L O2 Delivery Device VENTILATOR Vent Setting VOLUME A/C Inspired O2 100 Sodium 138 Potassium Chloride Carbon Dioxide Anion Gap BUN Creatinine Estimated GFR POC Glucose Random Glucose Serum Osmolality Lactic Acid 7.0 H* Calcium Prot Corrected Calcium Phosphorus Magnesium Iron TIBC % Saturation Ferritin Total Bilirubin AST ALT Alkaline Phosphatase Ammonia Total Creatine Kinase 1596 H CK-MB (CK-2) 8.8 H CK-MB (CK-2) % 0.6 Troponin I 0.04 Total Protein Albumin Prealbumin Zhjsj-8-Socshohyxhn Amylase Lipase Tumor Marker AFP TSH 3rd Generation Urine Color Urine Turbidity Urine pH Ur Specific [place] Urine Protein Urine Glucose (UA) Urine Ketones Urine Occult Blood Urine Nitrite Urine Bilirubin Urine Urobilinogen Ur Leukocyte Esterase Urine RBC Urine WBC Urine Bacteria Micro UA Comment Urine Osmolality Ur Random Creatinine Ur Random Sodium Pleural pH Pleural WBC Pleural RBC Pleural Neutrophils Pleural Lymphocytes Pleural Monocytes Pleural Fluid Comment Pleural Total Protein Pleural LDH Pleural Glucose Nasal Screen MRSA (PCR) Random Vancomycin Salicylates Urine Opiates Screen Acetaminophen Ur Barbiturates Screen Ur Amphetamines Screen U Benzodiazepines Scrn Urine Cocaine Screen U Cannabinoids Screen Ethyl Alcohol GARY Screen Hepatitis A IgM Ab Hep Bs Antigen Hep B Core IgM Ab Hep C IgG Ab HIV 1&2 Ab/P24 Ag 4thGn 02/02/18 02/03/18 02/03/18 23:15 04:15 04:15 WBC RBC Hgb Hct MCV MCH MCHC RDW Plt Count MPV Neut % (Auto) Lymph % (Auto) [place] % (Auto) Eos % (Auto) Baso % (Auto) Neut # (Auto) Lymph # (Auto) [place] # (Auto) Eos # (Auto) Baso # (Auto) CBC Comment Total Counted Neutrophils % (Manual) Band Neutrophils % Lymphocytes % Monocytes % Eosinophils % Neutrophils # (Manual) Metamyelocytes Nucleated RBCs Differential Comment Toxic Granulation Toxic Vacuolation Dohle Bodies Platelet Estimate Plt Morphology Comment Target Cells Tear Drop Cells Amanda Cells RBC Morph Comment PT INR APTT Fibrinogen Puncture Site Patient Temperature HCO3 Base Excess O2 Saturation ABG pH ABG pCO2 ABG pO2 ABG O2 Content ABG Carboxyhemoglobin ABG Methemoglobin Hemoglobin O2 Delivery Device Vent Setting Inspired O2 Sodium 136 Potassium 3.4 L Chloride 97 L Carbon Dioxide 15.5 L Anion Gap 24 H BUN 85 H Creatinine 5.55 H Estimated GFR 11 L POC Glucose Random Glucose 121 H Serum Osmolality Lactic Acid 6.6 H* Calcium 6.8 L* D Prot Corrected Calcium 7.9 L D Phosphorus 5.0 H Magnesium 2.0 Iron TIBC % Saturation Ferritin Total Bilirubin 2.4 H AST 1778 H ALT 294 H Alkaline Phosphatase 67 Ammonia Total Creatine Kinase 2164 H CK-MB (CK-2) 9.3 H CK-MB (CK-2) % 0.4 Troponin I 0.09 H Total Protein 4.9 L Albumin 1.4 L Prealbumin Vivgw-2-Ijlzzcsidge Amylase Lipase Tumor Marker AFP TSH 3rd Generation Urine Color Urine Turbidity Urine pH Ur Specific [place] Urine Protein Urine Glucose (UA) Urine Ketones Urine Occult Blood Urine Nitrite Urine Bilirubin Urine Urobilinogen Ur Leukocyte Esterase Urine RBC Urine WBC Urine Bacteria Micro UA Comment Urine Osmolality Ur Random Creatinine Ur Random Sodium Pleural pH Pleural WBC Pleural RBC Pleural Neutrophils Pleural Lymphocytes Pleural Monocytes Pleural Fluid Comment Pleural Total Protein Pleural LDH Pleural Glucose Nasal Screen MRSA (PCR) MRSA NOT DETECTED Random Vancomycin Salicylates Urine Opiates Screen Acetaminophen Ur Barbiturates Screen Ur Amphetamines Screen U Benzodiazepines Scrn Urine Cocaine Screen U Cannabinoids Screen Ethyl Alcohol GARY Screen Hepatitis A IgM Ab Hep Bs Antigen Hep B Core IgM Ab Hep C IgG Ab HIV 1&2 Ab/P24 Ag 4thGn 02/03/18 02/03/18 02/03/18 04:15 04:15 08:18 WBC 3.6 L RBC 4.60 Hgb 13.6 Hct 40.4 MCV 87.9 MCH 29.7 MCHC 33.8 RDW 16.2 Plt Count 61 L MPV 11.5 H Neut % (Auto) Lymph % (Auto) [place] % (Auto) Eos % (Auto) Baso % (Auto) Neut # (Auto) Lymph # (Auto) [place] # (Auto) Eos # (Auto) Baso # (Auto) CBC Comment Total Counted Neutrophils % (Manual) Band Neutrophils % Lymphocytes % Monocytes % Eosinophils % Neutrophils # (Manual) Metamyelocytes Nucleated RBCs Differential Comment Toxic Granulation Toxic Vacuolation Dohle Bodies Platelet Estimate Plt Morphology Comment Target Cells Tear Drop Cells Amanda Cells RBC Morph Comment PT 11.1 INR 1.1 APTT 35.1 H Fibrinogen Puncture Site ART LINE Patient Temperature 98.6 HCO3 16 L* Base Excess -8.3 L O2 Saturation 93 ABG pH 7.38 ABG pCO2 28 L ABG pO2 88 ABG O2 Content 18.2 ABG Carboxyhemoglobin 0.4 ABG Methemoglobin 1.6 Hemoglobin 13.9 O2 Delivery Device VENTILATOR Vent Setting AC22/650/[id number] Inspired O2 40 Sodium Potassium Chloride Carbon Dioxide Anion Gap BUN Creatinine Estimated GFR POC Glucose Random Glucose Serum Osmolality Lactic Acid Calcium Prot Corrected Calcium Phosphorus Magnesium Iron TIBC % Saturation Ferritin Total Bilirubin AST ALT Alkaline Phosphatase Ammonia Total Creatine Kinase CK-MB (CK-2) CK-MB (CK-2) % Troponin I Total Protein Albumin Prealbumin Qgidz-4-Vkgaonmxnth Amylase Lipase Tumor Marker AFP TSH 3rd Generation Urine Color Urine Turbidity Urine pH Ur Specific [place] Urine Protein Urine Glucose (UA) Urine Ketones Urine Occult Blood Urine Nitrite Urine Bilirubin Urine Urobilinogen Ur Leukocyte Esterase Urine RBC Urine WBC Urine Bacteria Micro UA Comment Urine Osmolality Ur Random Creatinine Ur Random Sodium Pleural pH Pleural WBC Pleural RBC Pleural Neutrophils Pleural Lymphocytes Pleural Monocytes Pleural Fluid Comment Pleural Total Protein Pleural LDH Pleural Glucose Nasal Screen MRSA (PCR) Random Vancomycin Salicylates Urine Opiates Screen Acetaminophen Ur Barbiturates Screen Ur Amphetamines Screen U Benzodiazepines Scrn Urine Cocaine Screen U Cannabinoids Screen Ethyl Alcohol GARY Screen Hepatitis A IgM Ab Hep Bs Antigen Hep B Core IgM Ab Hep C IgG Ab HIV 1&2 Ab/P24 Ag 4thGn 02/03/18 02/03/18 02/03/18 10:45 10:45 10:45 WBC RBC Hgb Hct MCV MCH MCHC RDW Plt Count MPV Neut % (Auto) Lymph % (Auto) [place] % (Auto) Eos % (Auto) Baso % (Auto) Neut # (Auto) Lymph # (Auto) [place] # (Auto) Eos # (Auto) Baso # (Auto) CBC Comment Total Counted Neutrophils % (Manual) Band Neutrophils % Lymphocytes % Monocytes % Eosinophils % Neutrophils # (Manual) Metamyelocytes Nucleated RBCs Differential Comment Toxic Granulation Toxic Vacuolation Dohle Bodies Platelet Estimate Plt Morphology Comment Target Cells Tear Drop Cells Amanda Cells RBC Morph Comment PT INR APTT Fibrinogen GREATER THAN 860 H Puncture Site Patient Temperature HCO3 Base Excess O2 Saturation ABG pH ABG pCO2 ABG pO2 ABG O2 Content ABG Carboxyhemoglobin ABG Methemoglobin Hemoglobin O2 Delivery Device Vent Setting Inspired O2 Sodium Potassium Chloride Carbon Dioxide Anion Gap BUN Creatinine Estimated GFR POC Glucose Random Glucose Serum Osmolality Lactic Acid Calcium Prot Corrected Calcium Phosphorus Magnesium Iron TIBC % Saturation Ferritin Total Bilirubin AST ALT Alkaline Phosphatase Ammonia Total Creatine Kinase CK-MB (CK-2) CK-MB (CK-2) % Troponin I Total Protein Albumin Prealbumin Boslc-1-Fltanqhclzb Amylase Lipase Tumor Marker AFP TSH 3rd Generation Urine Color Urine Turbidity Urine pH Ur Specific [place] Urine Protein Urine Glucose (UA) Urine Ketones Urine Occult Blood Urine Nitrite Urine Bilirubin Urine Urobilinogen Ur Leukocyte Esterase Urine RBC Urine WBC Urine Bacteria Micro UA Comment Urine Osmolality Ur Random Creatinine Ur Random Sodium Pleural pH Pleural WBC Pleural RBC Pleural Neutrophils Pleural Lymphocytes Pleural Monocytes Pleural Fluid Comment Pleural Total Protein Pleural LDH Pleural Glucose Nasal Screen MRSA (PCR) Random Vancomycin Salicylates Urine Opiates Screen Acetaminophen Ur Barbiturates Screen Ur Amphetamines Screen U Benzodiazepines Scrn Urine Cocaine Screen U Cannabinoids Screen Ethyl Alcohol GARY Screen Hepatitis A IgM Ab NONREACTIVE Hep Bs Antigen NONREACTIVE Hep B Core IgM Ab NONREACTIVE Hep C IgG Ab NONREACTIVE HIV 1&2 Ab/P24 Ag 4thGn NONREACTIVE 02/03/18 02/03/18 02/03/18 12:00 12:22 13:45 WBC RBC Hgb Hct MCV MCH MCHC RDW Plt Count MPV Neut % (Auto) Lymph % (Auto) [place] % (Auto) Eos % (Auto) Baso % (Auto) Neut # (Auto) Lymph # (Auto) [place] # (Auto) Eos # (Auto) Baso # (Auto) CBC Comment Total Counted Neutrophils % (Manual) Band Neutrophils % Lymphocytes % Monocytes % Eosinophils % Neutrophils # (Manual) Metamyelocytes Nucleated RBCs Differential Comment Toxic Granulation Toxic Vacuolation Dohle Bodies Platelet Estimate Plt Morphology Comment Target Cells Tear Drop Cells Logan Cells RBC Morph Comment PT INR APTT Fibrinogen Puncture Site Patient Temperature HCO3 Base Excess O2 Saturation ABG pH ABG pCO2 ABG pO2 ABG O2 Content ABG Carboxyhemoglobin ABG Methemoglobin Hemoglobin O2 Delivery Device Vent Setting Inspired O2 Sodium 136 Potassium Chloride Carbon Dioxide Anion Gap BUN Creatinine Estimated GFR POC Glucose Random Glucose Serum Osmolality Lactic Acid 7.8 H* Calcium Prot Corrected Calcium Phosphorus Magnesium Iron TIBC % Saturation Ferritin Total Bilirubin AST ALT Alkaline Phosphatase Ammonia Total Creatine Kinase 2688 H CK-MB (CK-2) 9.5 H CK-MB (CK-2) % 0.4 Troponin I 0.10 H Total Protein Albumin Prealbumin Sxrmt-1-Wypztatqjir Amylase Lipase Tumor Marker AFP TSH 3rd Generation Urine Color Urine Turbidity Urine pH Ur Specific [place] Urine Protein Urine Glucose (UA) Urine Ketones Urine Occult Blood Urine Nitrite Urine Bilirubin Urine Urobilinogen Ur Leukocyte Esterase Urine RBC Urine WBC Urine Bacteria Micro UA Comment Urine Osmolality Ur Random Creatinine Ur Random Sodium Pleural pH 7.5 Pleural WBC 44301 H Pleural RBC 16835 H Pleural Neutrophils 82 Pleural Lymphocytes 17 Pleural Monocytes 1 Pleural Fluid Comment Pleural Total Protein Pleural LDH Pleural Glucose Nasal Screen MRSA (PCR) Random Vancomycin Salicylates Urine Opiates Screen Acetaminophen Ur Barbiturates Screen Ur Amphetamines Screen U Benzodiazepines Scrn Urine Cocaine Screen U Cannabinoids Screen Ethyl Alcohol GARY Screen Hepatitis A IgM Ab Hep Bs Antigen Hep B Core IgM Ab Hep C IgG Ab HIV 1&2 Ab/P24 Ag 4thGn 02/03/18 02/03/18 02/03/18 13:45 13:50 15:45 WBC RBC Hgb Hct MCV MCH MCHC RDW Plt Count MPV Neut % (Auto) Lymph % (Auto) [place] % (Auto) Eos % (Auto) Baso % (Auto) Neut # (Auto) Lymph # (Auto) [place] # (Auto) Eos # (Auto) Baso # (Auto) CBC Comment Total Counted Neutrophils % (Manual) Band Neutrophils % Lymphocytes % Monocytes % Eosinophils % Neutrophils # (Manual) Metamyelocytes Nucleated RBCs Differential Comment Toxic Granulation Toxic Vacuolation Dohle Bodies Platelet Estimate Plt Morphology Comment Target Cells Tear Drop Cells Amanda Cells RBC Morph Comment PT INR APTT Fibrinogen Puncture Site Patient Temperature HCO3 Base Excess O2 Saturation ABG pH ABG pCO2 ABG pO2 ABG O2 Content ABG Carboxyhemoglobin ABG Methemoglobin Hemoglobin O2 Delivery Device Vent Setting Inspired O2 Sodium 133 L Potassium 4.1 Chloride 92 L Carbon Dioxide 17.4 L Anion Gap 24 H BUN 91 H Creatinine 5.85 H Estimated GFR 10 L POC Glucose Random Glucose 133 H Serum Osmolality Lactic Acid Calcium 6.5 L* Prot Corrected Calcium 7.6 L Phosphorus Magnesium Iron TIBC % Saturation Ferritin Total Bilirubin AST ALT Alkaline Phosphatase Ammonia Total Creatine Kinase CK-MB (CK-2) CK-MB (CK-2) % Troponin I Total Protein 4.9 L Albumin Prealbumin Doiyo-0-Vhduakkpxgj Amylase Lipase Tumor Marker AFP 0.8 TSH 3rd Generation Urine Color Urine Turbidity Urine pH Ur Specific [place] Urine Protein Urine Glucose (UA) Urine Ketones Urine Occult Blood Urine Nitrite Urine Bilirubin Urine Urobilinogen Ur Leukocyte Esterase Urine RBC Urine WBC Urine Bacteria Micro UA Comment Urine Osmolality Ur Random Creatinine Ur Random Sodium Pleural pH Pleural WBC Pleural RBC Pleural Neutrophils Pleural Lymphocytes Pleural Monocytes Pleural Fluid Comment Pleural Total Protein 4.0 Pleural LDH 3449 Pleural Glucose 4 Nasal Screen MRSA (PCR) Random Vancomycin Salicylates Urine Opiates Screen Acetaminophen Ur Barbiturates Screen Ur Amphetamines Screen U Benzodiazepines Scrn Urine Cocaine Screen U Cannabinoids Screen Ethyl Alcohol GARY Screen Hepatitis A IgM Ab Hep Bs Antigen Hep B Core IgM Ab Hep C IgG Ab HIV 1&2 Ab/P24 Ag 4thGn 02/03/18 02/03/18 02/03/18 15:45 15:45 15:45 WBC RBC Hgb Hct MCV MCH MCHC RDW Plt Count MPV Neut % (Auto) Lymph % (Auto) [place] % (Auto) Eos % (Auto) Baso % (Auto) Neut # (Auto) Lymph # (Auto) [place] # (Auto) Eos # (Auto) Baso # (Auto) CBC Comment Total Counted Neutrophils % (Manual) Band Neutrophils % Lymphocytes % Monocytes % Eosinophils % Neutrophils # (Manual) Metamyelocytes Nucleated RBCs Differential Comment Toxic Granulation Toxic Vacuolation Dohle Bodies Platelet Estimate Plt Morphology Comment Target Cells Tear Drop Cells Amanda Cells RBC Morph Comment PT INR APTT Fibrinogen Puncture Site Patient Temperature HCO3 Base Excess O2 Saturation ABG pH ABG pCO2 ABG pO2 ABG O2 Content ABG Carboxyhemoglobin ABG Methemoglobin Hemoglobin O2 Delivery Device Vent Setting Inspired O2 Sodium Potassium Chloride Carbon Dioxide Anion Gap BUN Creatinine Estimated GFR POC Glucose Random Glucose Serum Osmolality Lactic Acid Calcium Prot Corrected Calcium Phosphorus Magnesium Iron TIBC % Saturation Ferritin Total Bilirubin AST ALT Alkaline Phosphatase Ammonia LESS THAN 10 L Total Creatine Kinase CK-MB (CK-2) CK-MB (CK-2) % Troponin I Total Protein Albumin Prealbumin Mjssc-0-Fktihtjaphh 433 H Amylase Lipase Tumor Marker AFP TSH 3rd Generation Urine Color Urine Turbidity Urine pH Ur Specific [place] Urine Protein Urine Glucose (UA) Urine Ketones Urine Occult Blood Urine Nitrite Urine Bilirubin Urine Urobilinogen Ur Leukocyte Esterase Urine RBC Urine WBC Urine Bacteria Micro UA Comment Urine Osmolality Ur Random Creatinine Ur Random Sodium Pleural pH Pleural WBC Pleural RBC Pleural Neutrophils Pleural Lymphocytes Pleural Monocytes Pleural Fluid Comment Pleural Total Protein Pleural LDH Pleural Glucose Nasal Screen MRSA (PCR) Random Vancomycin Salicylates Urine Opiates Screen Acetaminophen Ur Barbiturates Screen Ur Amphetamines Screen U Benzodiazepines Scrn Urine Cocaine Screen U Cannabinoids Screen Ethyl Alcohol GARY Screen NEG Hepatitis A IgM Ab Hep Bs Antigen Hep B Core IgM Ab Hep C IgG Ab HIV 1&2 Ab/P24 Ag 4thGn 02/04/18 02/04/18 02/04/18 04:55 04:55 04:55 WBC RBC Hgb Hct MCV MCH MCHC RDW Plt Count MPV Neut % (Auto) Lymph % (Auto) [place] % (Auto) Eos % (Auto) Baso % (Auto) Neut # (Auto) Lymph # (Auto) [place] # (Auto) Eos # (Auto) Baso # (Auto) CBC Comment Total Counted Neutrophils % (Manual) Band Neutrophils % Lymphocytes % Monocytes % Eosinophils % Neutrophils # (Manual) Metamyelocytes Nucleated RBCs Differential Comment Toxic Granulation Toxic Vacuolation Dohle Bodies Platelet Estimate Plt Morphology Comment Target Cells Tear Drop Cells Amanda Cells RBC Morph Comment PT 11.0 INR 1.1 APTT 39.9 H Fibrinogen Puncture Site Patient Temperature HCO3 Base Excess O2 Saturation ABG pH ABG pCO2 ABG pO2 ABG O2 Content ABG Carboxyhemoglobin ABG Methemoglobin Hemoglobin O2 Delivery Device Vent Setting Inspired O2 Sodium 131 L Potassium 4.0 Chloride 86 L Carbon Dioxide 20.4 L Anion Gap 25 H BUN 93 H Creatinine 5.87 H Estimated GFR 10 L POC Glucose Random Glucose 218 H Serum Osmolality Lactic Acid 6.2 H* Calcium 5.9 L* Prot Corrected Calcium 7.2 L* Phosphorus 8.0 H D Magnesium 1.8 Iron 30 L TIBC 126 L % Saturation 23.8 Ferritin 2246 H Total Bilirubin 3.8 H AST 1034 H ALT 184 H Alkaline Phosphatase 89 Ammonia Total Creatine Kinase 3357 H CK-MB (CK-2) 13.8 H CK-MB (CK-2) % 0.4 Troponin I Total Protein 4.4 L Albumin 1.2 L Prealbumin Hdzuo-1-Varwewbjvpy Amylase 49 Lipase 102 Tumor Marker AFP TSH 3rd Generation Urine Color Urine Turbidity Urine pH Ur Specific [place] Urine Protein Urine Glucose (UA) Urine Ketones Urine Occult Blood Urine Nitrite Urine Bilirubin Urine Urobilinogen Ur Leukocyte Esterase Urine RBC Urine WBC Urine Bacteria Micro UA Comment Urine Osmolality Ur Random Creatinine Ur Random Sodium Pleural pH Pleural WBC Pleural RBC Pleural Neutrophils Pleural Lymphocytes Pleural Monocytes Pleural Fluid Comment Pleural Total Protein Pleural LDH Pleural Glucose Nasal Screen MRSA (PCR) Random Vancomycin 20.4 Salicylates Urine Opiates Screen Acetaminophen Ur Barbiturates Screen Ur Amphetamines Screen U Benzodiazepines Scrn Urine Cocaine Screen U Cannabinoids Screen Ethyl Alcohol GARY Screen Hepatitis A IgM Ab Hep Bs Antigen Hep B Core IgM Ab Hep C IgG Ab HIV 1&2 Ab/P24 Ag 4thGn 02/04/18 02/04/18 02/04/18 04:55 08:10 12:46 WBC 14.4 H RBC 4.09 L Hgb 12.2 L Hct 36.0 L MCV 88.2 MCH 29.8 MCHC 33.8 RDW 16.1 Plt Count 76 L MPV 10.8 Neut % (Auto) 93.9 H Lymph % (Auto) 3.0 L [place] % (Auto) 0.5 Eos % (Auto) 2.0 Baso % (Auto) 0.6 Neut # (Auto) 13.6 H Lymph # (Auto) 0.4 L [place] # (Auto) 0.1 Eos # (Auto) 0.3 Baso # (Auto) 0.1 CBC Comment AUTO DIFF Total Counted 100 Neutrophils % (Manual) 56 Band Neutrophils % 38 H Lymphocytes % Monocytes % 4 Eosinophils % Neutrophils # (Manual) 13.8 H Metamyelocytes 2 H Nucleated RBCs 3 H Differential Comment FINAL DIFF MANUAL Toxic Granulation 1+ H Toxic Vacuolation Dohle Bodies PRESENT H Platelet Estimate LOW L Plt Morphology Comment ENLARGED H Target Cells Tear Drop Cells [place] Cells RBC Morph Comment NORMAL PT INR APTT Fibrinogen Puncture Site ART LINE Patient Temperature 98.6 HCO3 23 Base Excess -0.9 O2 Saturation 95 ABG pH 7.43 H ABG pCO2 36 L ABG pO2 101 ABG O2 Content 15.9 ABG Carboxyhemoglobin 0.6 ABG Methemoglobin 1.6 Hemoglobin 11.9 L O2 Delivery Device VENTILATOR Vent Setting A/C 650/18/5PEEP Inspired O2 40 Sodium 130 L Potassium 3.9 Chloride 84 L Carbon Dioxide 27.1 Anion Gap 19 H BUN 97 H Creatinine 5.78 H Estimated GFR 10 L POC Glucose Random Glucose 193 H Serum Osmolality Lactic Acid Calcium 5.5 L* Prot Corrected Calcium 6.7 L* D Phosphorus Magnesium Iron TIBC % Saturation Ferritin Total Bilirubin AST ALT Alkaline Phosphatase Ammonia Total Creatine Kinase 3765 H CK-MB (CK-2) 12.6 H CK-MB (CK-2) % 0.3 Troponin I Total Protein 4.3 L Albumin Prealbumin Xuant-8-Yswsxywgaij Amylase Lipase Tumor Marker AFP TSH 3rd Generation Urine Color Urine Turbidity Urine pH Ur Specific [place] Urine Protein Urine Glucose (UA) Urine Ketones Urine Occult Blood Urine Nitrite Urine Bilirubin Urine Urobilinogen Ur Leukocyte Esterase Urine RBC Urine WBC Urine Bacteria Micro UA Comment Urine Osmolality Ur Random Creatinine Ur Random Sodium Pleural pH Pleural WBC Pleural RBC Pleural Neutrophils Pleural Lymphocytes Pleural Monocytes Pleural Fluid Comment Pleural Total Protein Pleural LDH Pleural Glucose Nasal Screen MRSA (PCR) Random Vancomycin Salicylates Urine Opiates Screen Acetaminophen Ur Barbiturates Screen Ur Amphetamines Screen U Benzodiazepines Scrn Urine Cocaine Screen U Cannabinoids Screen Ethyl Alcohol GARY Screen Hepatitis A IgM Ab Hep Bs Antigen Hep B Core IgM Ab Hep C IgG Ab HIV 1&2 Ab/P24 Ag 4thGn 02/04/18 02/05/18 02/05/18 16:30 01:30 01:30 WBC RBC Hgb Hct MCV MCH MCHC RDW Plt Count MPV Neut % (Auto) Lymph % (Auto) [place] % (Auto) Eos % (Auto) Baso % (Auto) Neut # (Auto) Lymph # (Auto) [place] # (Auto) Eos # (Auto) Baso # (Auto) CBC Comment Total Counted Neutrophils % (Manual) Band Neutrophils % Lymphocytes % Monocytes % Eosinophils % Neutrophils # (Manual) Metamyelocytes Nucleated RBCs Differential Comment Toxic Granulation Toxic Vacuolation Dohle Bodies Platelet Estimate Plt Morphology Comment Target Cells Tear Drop Cells Amanda Cells RBC Morph Comment PT INR APTT 37.5 H Fibrinogen Puncture Site Patient Temperature HCO3 Base Excess O2 Saturation ABG pH ABG pCO2 ABG pO2 ABG O2 Content ABG Carboxyhemoglobin ABG Methemoglobin Hemoglobin O2 Delivery Device Vent Setting Inspired O2 Sodium Cancelled 130 L Potassium Cancelled 3.5 Chloride Cancelled 86 L Carbon Dioxide Cancelled 29.1 Anion Gap Cancelled 15 BUN Cancelled 83 H D Creatinine Cancelled 4.35 H D Estimated GFR Cancelled 14 L POC Glucose Random Glucose Cancelled 180 H Serum Osmolality Lactic Acid Calcium Cancelled 5.1 L* Prot Corrected Calcium 6.2 L* D Phosphorus 4.7 D Magnesium 1.6 Iron TIBC % Saturation Ferritin Total Bilirubin 4.2 H AST 729 H ALT 145 H Alkaline Phosphatase 125 H Ammonia Total Creatine Kinase CK-MB (CK-2) CK-MB (CK-2) % Troponin I Total Protein 4.4 L Albumin 1.2 L Prealbumin Ubpsy-7-Ojedoeoydpj Amylase Lipase Tumor Marker AFP TSH 3rd Generation Urine Color Urine Turbidity Urine pH Ur Specific [place] Urine Protein Urine Glucose (UA) Urine Ketones Urine Occult Blood Urine Nitrite Urine Bilirubin Urine Urobilinogen Ur Leukocyte Esterase Urine RBC Urine WBC Urine Bacteria Micro UA Comment Urine Osmolality Ur Random Creatinine Ur Random Sodium Pleural pH Pleural WBC Pleural RBC Pleural Neutrophils Pleural Lymphocytes Pleural Monocytes Pleural Fluid Comment Pleural Total Protein Pleural LDH Pleural Glucose Nasal Screen MRSA (PCR) Random Vancomycin Salicylates Urine Opiates Screen Acetaminophen Ur Barbiturates Screen Ur Amphetamines Screen U Benzodiazepines Scrn Urine Cocaine Screen U Cannabinoids Screen Ethyl Alcohol GARY Screen Hepatitis A IgM Ab Hep Bs Antigen Hep B Core IgM Ab Hep C IgG Ab HIV 1&2 Ab/P24 Ag 4thGn 02/05/18 02/05/18 02/05/18 01:30 01:30 01:30 WBC 18.0 H RBC 3.98 L Hgb 12.0 L Hct 34.5 L MCV 86.7 MCH 30.2 MCHC 34.8 RDW 16.8 Plt Count 69 L MPV 11.3 H Neut % (Auto) Lymph % (Auto) [place] % (Auto) Eos % (Auto) Baso % (Auto) Neut # (Auto) Lymph # (Auto) [place] # (Auto) Eos # (Auto) Baso # (Auto) CBC Comment AUTO DIFF Total Counted 100 Neutrophils % (Manual) 71 H Band Neutrophils % 20 H Lymphocytes % 1 L Monocytes % 3 Eosinophils % Neutrophils # (Manual) 17.3 H Metamyelocytes 5 H Nucleated RBCs Differential Comment FINAL DIFF MANUAL Toxic Granulation 1+ H Toxic Vacuolation PRESENT H Dohle Bodies PRESENT H Platelet Estimate LOW L Plt Morphology Comment ENLARGED H Target Cells 1+ H Tear Drop Cells 3+ H Logan Cells RBC Morph Comment PT 10.4 INR 1.0 APTT 38.6 H Fibrinogen Puncture Site Patient Temperature HCO3 Base Excess O2 Saturation ABG pH ABG pCO2 ABG pO2 ABG O2 Content ABG Carboxyhemoglobin ABG Methemoglobin Hemoglobin O2 Delivery Device Vent Setting Inspired O2 Sodium Potassium Chloride Carbon Dioxide Anion Gap BUN Creatinine Estimated GFR POC Glucose Random Glucose Serum Osmolality Lactic Acid 3.2 H Calcium Prot Corrected Calcium Phosphorus Magnesium Iron TIBC % Saturation Ferritin Total Bilirubin AST ALT Alkaline Phosphatase Ammonia Total Creatine Kinase CK-MB (CK-2) CK-MB (CK-2) % Troponin I Total Protein Albumin Prealbumin Yxmqi-6-Tugxbarkgjk Amylase Lipase Tumor Marker AFP TSH 3rd Generation Urine Color Urine Turbidity Urine pH Ur Specific [place] Urine Protein Urine Glucose (UA) Urine Ketones Urine Occult Blood Urine Nitrite Urine Bilirubin Urine Urobilinogen Ur Leukocyte Esterase Urine RBC Urine WBC Urine Bacteria Micro UA Comment Urine Osmolality Ur Random Creatinine Ur Random Sodium Pleural pH Pleural WBC Pleural RBC Pleural Neutrophils Pleural Lymphocytes Pleural Monocytes Pleural Fluid Comment Pleural Total Protein Pleural LDH Pleural Glucose Nasal Screen MRSA (PCR) Random Vancomycin Salicylates Urine Opiates Screen Acetaminophen Ur Barbiturates Screen Ur Amphetamines Screen U Benzodiazepines Scrn Urine Cocaine Screen U Cannabinoids Screen Ethyl Alcohol GARY Screen Hepatitis A IgM Ab Hep Bs Antigen Hep B Core IgM Ab Hep C IgG Ab HIV 1&2 Ab/P24 Ag 4thGn 02/05/18 02/06/18 02/06/18 21:00 03:40 03:40 WBC 24.5 H RBC 3.97 L Hgb 11.7 L Hct 35.0 L MCV 88.1 MCH 29.3 MCHC 33.3 RDW 17.0 Plt Count 66 L MPV 11.0 Neut % (Auto) Lymph % (Auto) [place] % (Auto) Eos % (Auto) Baso % (Auto) Neut # (Auto) Lymph # (Auto) [place] # (Auto) Eos # (Auto) Baso # (Auto) CBC Comment Total Counted Neutrophils % (Manual) Band Neutrophils % Lymphocytes % Monocytes % Eosinophils % Neutrophils # (Manual) Metamyelocytes Nucleated RBCs Differential Comment Toxic Granulation Toxic Vacuolation Dohle Bodies Platelet Estimate Plt Morphology Comment Target Cells Tear Drop Cells Logan Cells RBC Morph Comment PT 10.7 INR 1.1 APTT 34.5 H Fibrinogen 681 H Puncture Site Patient Temperature HCO3 Base Excess O2 Saturation ABG pH ABG pCO2 ABG pO2 ABG O2 Content ABG Carboxyhemoglobin ABG Methemoglobin Hemoglobin O2 Delivery Device Vent Setting Inspired O2 Sodium 133 L Potassium 3.7 Chloride 89 L Carbon Dioxide 23.6 Anion Gap 20 H BUN 57 H D Creatinine 2.98 H D Estimated GFR 22 L POC Glucose Random Glucose 187 H Serum Osmolality Lactic Acid Calcium LESS THAN 5.0 L* Prot Corrected Calcium Phosphorus Magnesium Iron TIBC % Saturation Ferritin Total Bilirubin AST ALT Alkaline Phosphatase Ammonia Total Creatine Kinase CK-MB (CK-2) CK-MB (CK-2) % Troponin I Total Protein Albumin Prealbumin Sbtwl-3-Lgmczigkqpz Amylase Lipase Tumor Marker AFP TSH 3rd Generation Urine Color Urine Turbidity Urine pH Ur Specific [place] Urine Protein Urine Glucose (UA) Urine Ketones Urine Occult Blood Urine Nitrite Urine Bilirubin Urine Urobilinogen Ur Leukocyte Esterase Urine RBC Urine WBC Urine Bacteria Micro UA Comment Urine Osmolality Ur Random Creatinine Ur Random Sodium Pleural pH Pleural WBC Pleural RBC Pleural Neutrophils Pleural Lymphocytes Pleural Monocytes Pleural Fluid Comment Pleural Total Protein Pleural LDH Pleural Glucose Nasal Screen MRSA (PCR) Random Vancomycin Salicylates Urine Opiates Screen Acetaminophen Ur Barbiturates Screen Ur Amphetamines Screen U Benzodiazepines Scrn Urine Cocaine Screen U Cannabinoids Screen Ethyl Alcohol GARY Screen Hepatitis A IgM Ab Hep Bs Antigen Hep B Core IgM Ab Hep C IgG Ab HIV 1&2 Ab/P24 Ag 4thGn 02/06/18 02/06/18 02/06/18 03:40 08:00 10:24 WBC RBC Hgb Hct MCV MCH MCHC RDW Plt Count MPV Neut % (Auto) Lymph % (Auto) [place] % (Auto) Eos % (Auto) Baso % (Auto) Neut # (Auto) Lymph # (Auto) [place] # (Auto) Eos # (Auto) Baso # (Auto) CBC Comment Total Counted Neutrophils % (Manual) Band Neutrophils % Lymphocytes % Monocytes % Eosinophils % Neutrophils # (Manual) Metamyelocytes Nucleated RBCs Differential Comment Toxic Granulation Toxic Vacuolation Dohle Bodies Platelet Estimate Plt Morphology Comment Target Cells Tear Drop Cells Amanda Cells RBC Morph Comment PT INR APTT Fibrinogen Puncture Site Patient Temperature HCO3 Base Excess O2 Saturation ABG pH ABG pCO2 ABG pO2 ABG O2 Content ABG Carboxyhemoglobin ABG Methemoglobin Hemoglobin O2 Delivery Device Vent Setting Inspired O2 Sodium 134 L 132 L Potassium 3.6 4.0 Chloride 91 L 90 L Carbon Dioxide 22.6 24.1 Anion Gap 20 H 18 H BUN 62 H 67 H Creatinine 3.45 H 3.79 H Estimated GFR 19 L 17 L POC Glucose 250 H Random Glucose 205 H 229 H Serum Osmolality Lactic Acid Calcium 6.2 L* 6.2 L* Prot Corrected Calcium 7.4 L* 7.5 L Phosphorus 4.4 Magnesium 1.8 Iron TIBC % Saturation Ferritin Total Bilirubin 4.6 H AST 486 H ALT 118 H Alkaline Phosphatase 163 H Ammonia Total Creatine Kinase CK-MB (CK-2) CK-MB (CK-2) % Troponin I Total Protein 4.6 L 4.4 L Albumin 1.1 L Prealbumin 4 L Rasnq-7-Vkqjnolgaoo Amylase Lipase Tumor Marker AFP TSH 3rd Generation Urine Color Urine Turbidity Urine pH Ur Specific [place] Urine Protein Urine Glucose (UA) Urine Ketones Urine Occult Blood Urine Nitrite Urine Bilirubin Urine Urobilinogen Ur Leukocyte Esterase Urine RBC Urine WBC Urine Bacteria Micro UA Comment Urine Osmolality Ur Random Creatinine Ur Random Sodium Pleural pH Pleural WBC Pleural RBC Pleural Neutrophils Pleural Lymphocytes Pleural Monocytes Pleural Fluid Comment Pleural Total Protein Pleural LDH Pleural Glucose Nasal Screen MRSA (PCR) Random Vancomycin Salicylates Urine Opiates Screen Acetaminophen Ur Barbiturates Screen Ur Amphetamines Screen U Benzodiazepines Scrn Urine Cocaine Screen U Cannabinoids Screen Ethyl Alcohol GARY Screen Hepatitis A IgM Ab Hep Bs Antigen Hep B Core IgM Ab Hep C IgG Ab HIV 1&2 Ab/P24 Ag 4thGn 02/06/18 02/06/18 02/06/18 12:50 16:23 18:06 WBC RBC Hgb Hct MCV MCH MCHC RDW Plt Count MPV Neut % (Auto) Lymph % (Auto) [place] % (Auto) Eos % (Auto) Baso % (Auto) Neut # (Auto) Lymph # (Auto) [place] # (Auto) Eos # (Auto) Baso # (Auto) CBC Comment Total Counted Neutrophils % (Manual) Band Neutrophils % Lymphocytes % Monocytes % Eosinophils % Neutrophils # (Manual) Metamyelocytes Nucleated RBCs Differential Comment Toxic Granulation Toxic Vacuolation Dohle Bodies Platelet Estimate Plt Morphology Comment Target Cells Tear Drop Cells Amanda Cells RBC Morph Comment PT INR APTT Fibrinogen Puncture Site Patient Temperature HCO3 Base Excess O2 Saturation ABG pH ABG pCO2 ABG pO2 ABG O2 Content ABG Carboxyhemoglobin ABG Methemoglobin Hemoglobin O2 Delivery Device Vent Setting Inspired O2 Sodium 138 138 Potassium 3.4 L 3.7 Chloride 99 D 98 Carbon Dioxide 20.5 L 28.5 Anion Gap 19 H 12 BUN 60 H 47 H Creatinine 3.34 H 2.99 H Estimated GFR 19 L 22 L POC Glucose 171 H Random Glucose 216 H 206 H Serum Osmolality Lactic Acid Calcium 5.2 L* D 7.0 L* D Prot Corrected Calcium 6.7 L* D 8.5 D Phosphorus Magnesium Iron TIBC % Saturation Ferritin Total Bilirubin AST ALT Alkaline Phosphatase Ammonia Total Creatine Kinase CK-MB (CK-2) CK-MB (CK-2) % Troponin I Total Protein 3.6 L D 4.4 L D Albumin Prealbumin Mwglg-4-Beppisqjdtd Amylase Lipase Tumor Marker AFP TSH 3rd Generation Urine Color Urine Turbidity Urine pH Ur Specific [place] Urine Protein Urine Glucose (UA) Urine Ketones Urine Occult Blood Urine Nitrite Urine Bilirubin Urine Urobilinogen Ur Leukocyte Esterase Urine RBC Urine WBC Urine Bacteria Micro UA Comment Urine Osmolality Ur Random Creatinine Ur Random Sodium Pleural pH Pleural WBC Pleural RBC Pleural Neutrophils Pleural Lymphocytes Pleural Monocytes Pleural Fluid Comment Pleural Total Protein Pleural LDH Pleural Glucose Nasal Screen MRSA (PCR) Random Vancomycin Salicylates Urine Opiates Screen Acetaminophen Ur Barbiturates Screen Ur Amphetamines Screen U Benzodiazepines Scrn Urine Cocaine Screen U Cannabinoids Screen Ethyl Alcohol GARY Screen Hepatitis A IgM Ab Hep Bs Antigen Hep B Core IgM Ab Hep C IgG Ab HIV 1&2 Ab/P24 Ag 4thGn 02/06/18 02/06/18 02/06/18 18:06 20:54 21:35 WBC RBC Hgb Hct MCV MCH MCHC RDW Plt Count MPV Neut % (Auto) Lymph % (Auto) [place] % (Auto) Eos % (Auto) Baso % (Auto) Neut # (Auto) Lymph # (Auto) [place] # (Auto) Eos # (Auto) Baso # (Auto) CBC Comment Total Counted Neutrophils % (Manual) Band Neutrophils % Lymphocytes % Monocytes % Eosinophils % Neutrophils # (Manual) Metamyelocytes Nucleated RBCs Differential Comment Toxic Granulation Toxic Vacuolation Dohle Bodies Platelet Estimate Plt Morphology Comment Target Cells Tear Drop Cells [place] Cells RBC Morph Comment PT INR APTT Fibrinogen Puncture Site Patient Temperature HCO3 Base Excess O2 Saturation ABG pH ABG pCO2 ABG pO2 ABG O2 Content ABG Carboxyhemoglobin ABG Methemoglobin Hemoglobin O2 Delivery Device Vent Setting Inspired O2 Sodium 139 Potassium 3.8 Chloride 98 Carbon Dioxide 29.0 Anion Gap 12 BUN 48 H Creatinine 3.31 H Estimated GFR 19 L POC Glucose 204 H Random Glucose 212 H Serum Osmolality Lactic Acid Calcium 6.8 L* Prot Corrected Calcium 8.2 L Phosphorus 2.9 D Magnesium 2.1 Iron TIBC % Saturation Ferritin Total Bilirubin AST ALT Alkaline Phosphatase Ammonia Total Creatine Kinase CK-MB (CK-2) CK-MB (CK-2) % Troponin I Total Protein 4.4 L Albumin Prealbumin Xaixu-[id number] Amylase Lipase Tumor Marker AFP TSH 3rd Generation Urine Color Urine Turbidity Urine pH Ur Specific [place] Urine Protein Urine Glucose (UA) Urine Ketones Urine Occult Blood Urine Nitrite Urine Bilirubin Urine Urobilinogen Ur Leukocyte Esterase Urine RBC Urine WBC Urine Bacteria Micro UA Comment Urine Osmolality Ur Random Creatinine Ur Random Sodium Pleural pH Pleural WBC Pleural RBC Pleural Neutrophils Pleural Lymphocytes Pleural Monocytes Pleural Fluid Comment Pleural Total Protein Pleural LDH Pleural Glucose Nasal Screen MRSA (PCR) Random Vancomycin Salicylates Urine Opiates Screen Acetaminophen Ur Barbiturates Screen Ur Amphetamines Screen U Benzodiazepines Scrn Urine Cocaine Screen U Cannabinoids Screen Ethyl Alcohol GARY Screen Hepatitis A IgM Ab Hep Bs Antigen Hep B Core IgM Ab Hep C IgG Ab HIV 1&2 Ab/P24 Ag 4thGn 02/07/18 02/07/18 02/07/18 05:44 05:44 05:44 WBC 15.0 H RBC 3.42 L Hgb 10.2 L Hct 30.0 L MCV 87.9 MCH 29.8 MCHC 33.9 RDW 17.1 Plt Count 32 L D MPV 11.1 H Neut % (Auto) Lymph % (Auto) [place] % (Auto) Eos % (Auto) Baso % (Auto) Neut # (Auto) Lymph # (Auto) [place] # (Auto) Eos # (Auto) Baso # (Auto) CBC Comment Total Counted Neutrophils % (Manual) Band Neutrophils % Lymphocytes % Monocytes % Eosinophils % Neutrophils # (Manual) Metamyelocytes Nucleated RBCs Differential Comment Toxic Granulation Toxic Vacuolation Dohle Bodies Platelet Estimate Plt Morphology Comment Target Cells Tear Drop Cells Amanda Cells RBC Morph Comment PT 11.1 INR 1.1 APTT 32.4 H Fibrinogen 452 H Puncture Site Patient Temperature HCO3 Base Excess O2 Saturation ABG pH ABG pCO2 ABG pO2 ABG O2 Content ABG Carboxyhemoglobin ABG Methemoglobin Hemoglobin O2 Delivery Device Vent Setting Inspired O2 Sodium 137 Potassium 3.8 Chloride 97 L Carbon Dioxide 23.7 Anion Gap 16 H BUN 59 H Creatinine 3.64 H Estimated GFR 17 L POC Glucose Random Glucose 248 H Serum Osmolality Lactic Acid Calcium 7.8 L D Prot Corrected Calcium Phosphorus 5.4 H D Magnesium 2.2 Iron TIBC % Saturation Ferritin Total Bilirubin 4.6 H AST 229 H ALT 76 Alkaline Phosphatase 164 H Ammonia Total Creatine Kinase CK-MB (CK-2) CK-MB (CK-2) % Troponin I Total Protein 4.3 L Albumin 0.9 L Prealbumin Qxbfk-3-Ujddtoxwcyg Amylase Lipase Tumor Marker AFP TSH 3rd Generation Urine Color Urine Turbidity Urine pH Ur Specific [place] Urine Protein Urine Glucose (UA) Urine Ketones Urine Occult Blood Urine Nitrite Urine Bilirubin Urine Urobilinogen Ur Leukocyte Esterase Urine RBC Urine WBC Urine Bacteria Micro UA Comment Urine Osmolality Ur Random Creatinine Ur Random Sodium Pleural pH Pleural WBC Pleural RBC Pleural Neutrophils Pleural Lymphocytes Pleural Monocytes Pleural Fluid Comment Pleural Total Protein Pleural LDH Pleural Glucose Nasal Screen MRSA (PCR) Random Vancomycin Salicylates Urine Opiates Screen Acetaminophen Ur Barbiturates Screen Ur Amphetamines Screen U Benzodiazepines Scrn Urine Cocaine Screen U Cannabinoids Screen Ethyl Alcohol GARY Screen Hepatitis A IgM Ab Hep Bs Antigen Hep B Core IgM Ab Hep C IgG Ab HIV 1&2 Ab/P24 Ag 4thGn Microbiology 02/06/18 10:59 Blood - Peripheral Aerobic Blood Culture - Preliminary gram positive cocci 02/06/18 10:59 Blood - Peripheral Anaerobic Blood Culture - Preliminary No growth in 1 day Imagin/2. Chest X ray. left lower lung consolidation ITS Impressions Chest X-Ray 02/07/18 00:00 CONCLUSION: 1. Lines and tubes stable. 2. Interval development of left lower lung consolidation. Patient/Family Conference Present at Family Conference: Chris Rowaner (over the telephone) 30 min. Ronald Forrester (over the telephone) 30 min. Advance care planning >18 min. Family Conference Location: Telephone Issues Discussed: * Palliative care role, purpose, approach * Additional medical, psychosocial, and spiritual history * Patients general health, functional status, and cognitive changes in the months leading up to the current hospitalization * Patient/family understanding of the current medical problems * Patient/family understanding of prognosis * Patients goals of care as best understood from advance directives and/or conversations and/or values * Current medical treatment options and benefits/burdens of those options * Likely scenarios comparing ongoing aggressive care with a transition to comfort measures only * Questions answered to the best of my ability * Palliative care contact information provided Assessment and Plan - Disease Oriented Problem List (1) Acute renal failure (ARF) (2) Sepsis (3) Respiratory failure (4) Hypotension (5) Cholelithiasis - Symptom Scale (1) Pain 0-10 Scale: Unable to quantify (3) Anxiety 0-10 Scale: Unable to quantify Pertinent Non-Medical Issues: Psychosocial: Veteram. disablilty (back pain) and x 3. Have one son Ronald Forrester from 2nd marriage. Spiritual: Legal:no known advacnce directive per bother. Ethical issues impacting care: Important Contacts: (Son/ health care proxy) [phone] (brother)Chris Forrester [phone] Prognosis: 57 year old hx of etoh abuse, came in with severe sepsis, tachycardia, respiratory failure. Pt continue to be in sepsis with pressor support, mechanically ventilated, on dialysis, encephalopathic, hepatic shock. Prognosis is guarded. Code Status: Alternative Code (no cpr/acls/shock) Plan: == capacity- does not have capacity to make medical decision. Critically ill, encephalopathic, multi-organ failure. I do not anticipate return to have capacity unless pt becomes non critical. There is a big potential that this may not happen. == health care decision maker: x 3, and x 3. Son from 2nd marriage Ronald Forrester is medical decision maker == code- Full code for now, but family is contemplating no shock,acls/ cpr. I spoke with pt's brother, and also later on spoke with patient's son. Pt's health and clinical condition prior to hospitalization was inquired. Patient's course of hospitalization was reviewed. Questions answered. Goals of care is as follow per pt's son: * No cpr/acls/shock should his heart gets into trouble again. * They do want aggressive measure short of cpr. * Pt's son will arrive here from [place], and will have a Meeting this coming Wednesday symptom: pain- tachycardia, chronic back pain, found on the floor, hospitalize debility- fentanyl protocol placed anxiety- associated with dyspnea and discomfort. -fentanyl availabe for == Palliative care will follow to make recommendation for symptom managment, and review goals of care as clinical conditions evolves. Appreciation Thank you for the opportunity to participate in the care of Luigi Forrester. Attestation Attestation: To help prompt me to consider important information that might be impacting today's encounter and assessment, information from prior notes written by myself or my colleagues may have been "brought forward" into today's note. My signature on this note, however, is an attestation that I personally performed the exam, history, and/or decision-making noted today, and, unless otherwise indicated, the interactions with patient, family, and staff as well as the review of records all occurred today. I also attest that the listed assessment and stated plan reflect my best clinical judgment today based on the combination of historical information, prior notes, and today's exam/ interactions. When time spent is documented, it refers only to time spent today by the signer, or if indicated, combined time spent today by collaborating physician/nurse practitioner.
[2018-02-07 11:34] LABS: Baso # (Auto) 0.1 th/mm3 (0.0-0.2); Baso % (Auto) 0.4 % (0.0-2.0); Eos # (Auto) 0.2 th/mm3 (0.0-0.4); Eos % (Auto) 1.9 % (0.0-4.0); Hematocrit 26.4 % (39.0-51.0); Hemoglobin 8.8 gm/dL (13.0-17.0); Lymph # (Auto) 0.7 th/mm3 (1.0-4.8); Lymph % (Auto) 5.5 % (9.0-44.0); Mean Corpuscular HGB Conc 33.4 % (32.0-36.0); Mean Corpuscular Hemoglobin 29.4 pg (27.0-34.0); Mean Corpuscular Volume 87.9 fL (80.0-100.0); Mono # (Auto) 0.1 th/mm3 (0.0-0.9); Mono % (Auto) 1.1 % (0.0-8.0); Neut # (Auto) 11.1 th/mm3 (1.8-7.7); Neut % (Auto) 91.1 % (16.0-70.0); Platelet Count 25 th/mm3 (150-450); Red Blood Count 3.01 mil/mm3 (4.50-5.90); Red Cell Distribution Width 16.9 % (11.6-17.2); White Blood Count 12.2 th/mm3 (4.0-11.0)
[2018-02-07] MEDS: Vasopressin Inj 40 UNIT in Dextrose 5% in Water Inj 98 ML IV.CONT SCH ×2 (11:34)
[2018-02-07 12:34] LABS: Monocytes 1 % (0-8); Myelocytes 1 % (0-0); Tallied Nucleated RBC 1 (0-0)
[2018-02-07 12:35] LABS: Platelet Morphology Normal (Normal); Toxic Granulation 1+
[2018-02-07 13:01] LABS: Albumin 1.5 g/dL (3.4-5.0); Calcium 7.4 mg/dL (8.5-10.1); Carbon Dioxide 24.9 meq/L (21.0-32.0); Potassium 3.9 meq/L (3.5-5.1); Total Protein 4.7 g/dL (6.4-8.2)
--- NOTE | 2018-02-07 13:07 | P.PN ---
Subjective Interval history: Patient remain intubated and sedated, on pressors. Physical Exam Vital signs: Vital Signs 02/06/18 14:00 02/06/18 15:00 02/06/18 16:00 Temperature Pulse Rate 111 H 105 H 106 H Respiratory Rate 18 18 18 Blood Pressure 102/60 103/62 100/62 Pulse Oximetry 94 L 96 96 02/06/18 16:02 02/06/18 16:04 02/06/18 17:00 Temperature Pulse Rate 108 H 100 H Respiratory Rate 18 18 18 Blood Pressure 103/63 Pulse Oximetry 94 L 02/06/18 17:10 02/06/18 18:00 02/06/18 19:00 Temperature Pulse Rate 171 H 101 H 100 H Respiratory Rate 18 18 Blood Pressure 127/61 124/63 Pulse Oximetry 94 L 93 L 02/06/18 19:53 02/06/18 20:00 02/06/18 21:00 Temperature 102 F H Pulse Rate 100 H 100 H 99 H Respiratory Rate 18 18 18 Blood Pressure 141/67 H 139/64 Pulse Oximetry 99 96 94 L 02/06/18 22:00 02/06/18 23:00 02/07/18 00:00 Temperature Pulse Rate 170 H 91 H 152 H Respiratory Rate 18 18 18 Blood Pressure 108/59 L 130/61 117/59 L Pulse Oximetry 90 L 93 L 94 L 02/07/18 01:00 02/07/18 02:00 02/07/18 03:00 Temperature Pulse Rate 80 80 134 H Respiratory Rate 18 18 2 L Blood Pressure 119/61 125/62 124/79 Pulse Oximetry 94 L 95 100 02/07/18 03:47 02/07/18 04:00 02/07/18 05:00 Temperature 97.7 F Pulse Rate 146 H 137 H Respiratory Rate 18 4 L 6 L Blood Pressure 125/68 115/63 Pulse Oximetry 95 96 96 02/07/18 06:00 02/07/18 07:00 02/07/18 08:00 Temperature 98.4 F Pulse Rate 137 H 80 79 Respiratory Rate 19 0 L 18 Blood Pressure 116/66 108/55 L 96/61 L Pulse Oximetry 96 95 92 L 02/07/18 09:00 02/07/18 09:58 02/07/18 10:00 Temperature Pulse Rate 142 H 122 H 132 H Respiratory Rate 18 18 Blood Pressure 103/61 100/58 L Pulse Oximetry 97 98 02/07/18 10:30 02/07/18 11:00 02/07/18 11:30 Temperature Pulse Rate 129 H 133 H 130 H Respiratory Rate 18 18 18 Blood Pressure 100/60 113/66 97/57 L Pulse Oximetry 98 98 97 02/07/18 12:00 02/07/18 12:09 Temperature 98.8 F Pulse Rate 128 H Respiratory Rate 18 18 Blood Pressure 83/61 L Pulse Oximetry 96 96 Intake & Output 02/06/18 02/07/18 02/07/18 18:59 06:59 18:59 Intake Total 1999 1050 / 1050 600 / 600 Output Total 2500 / 2500 360 / 360 0 / 0 Balance -500 / -500 690 / 690 600 / 600 Weight 101 kg Intake: IV 1999 1050 / 1050 600 / 600 Neosynephrine Inj 40 MG In D5W 1000 / 1000 Inj 496 ML @ 40 MCG/MIN 30 mls/ hr IV.CONT TITRATE PRN Rx#: [id number] Pitressin Inj 40 UNIT In D5W 100 / 100 Inj 98 ML @ 0.04 UNITS/MIN 6 mls/hr IV.CONT CONT LEROY Rx#: [id number] fentaNYL 10 mcg/mL Premix Drip 250 / 250 250 / 250 250 / 250 2,500 mcg In 250 ml @ 50 MCG/HR 5 mls/hr IV.CONT TITRATE PRN Rx#:[id number] Cordarone Inj 450 MG In NS Inj 250 / 250 250 / 250 241 ML @ 0.5 MG/MIN 16.66 mls/ hr IV.SIG .Q15H1M LEROY Rx#: [id number] Calcium Chloride Inj 1 GM In NS 100 / 100 100 / 100 Inj 90 ML @ 100 mls/hr IV.SIG Q6H LEROY Rx#:[id number] Maxipime Inj 2,000 MG In NS Inj 100 / 100 100 ML @ 200 mls/hr IV.SIG Q24H LEROY Rx#:[id number] Teflaro Inj 300 MG In NS Inj 100 / 100 100 ML @ 100 mls/hr IV.SIG Q12HR LEROY Rx#:[id number] Prostaphlin Inj 2 GM In NS Inj 400 / 400 100 ML @ 200 mls/hr IV.SIG Q4H LEROY Rx#:[id number] KCl 20 mEq Premix Inj 20 meq In 100 / 100 100 ml @ 50 mls/hr IV.SIG ONCE ONE Rx#:[id number] Flagyl 500 MG Inj 100 ML @ 100 200 / 200 200 / 200 mls/hr IV.SIG Q6H LEROY Rx#: [id number] Oral 0 / 0 Output: Urine 0 / 0 Hemodialysis Amount 2500 / 2500 0 / 0 Urine Amount (Catheter) 60 / 60 Coude 60 / 60 Gastric Drainage 300 / 300 Orogastric Tube 300 / 300 Chest Tube Drainage 0 / 0 0 / 0 #1 Right Anterior 0 / 0 0 / 0 Other: # Bowel Movements 0 - Constitutional Comments: Intubated and sedated. - Routine HEENT Exam Head: Present: normocephalic Eye: Present: EOMI ENT: Present: mucous membranes moist - Routine Neck Exam Present: supple - Routine Respiratory Exam Present: patient mechanically ventilated, rales, rhonchi, diminished air movement - Routine Cardiovascular Exam Present: S1, S2, tachycardia - Routine Abdominal Exam Present: soft, distended - Routine Extremities Exam Comments: Moderate leg edema. - Urinary Catheter Management Coude Cath placed during this visit: yes Insertion date: 02/02/18 Indwelling Urethral Catheter Cath placed during this visit: yes Urethral indwelling: Yes Reason for continuing: Chronic Urinary Retention Insertion date: 02/15/18 Insertion time: 20:00 Results - Labs CBC & Chem 7: 02/18/18 10:45 02/18/18 04:01 Laboratory Results - last 24 hr 02/06/18 02/06/18 02/06/18 12:50 16:23 18:06 WBC RBC Hgb Hct MCV MCH MCHC RDW Plt Count MPV Prelim Diff (Auto) Neut % (Auto) Lymph % (Auto) [place] % (Auto) Eos % (Auto) Baso % (Auto) Neut # (Auto) Lymph # (Auto) [place] # (Auto) Eos # (Auto) Baso # (Auto) WBC Differential Seg Neuts % (Manual) Band Neuts % (Manual) Monocytes % (Manual) Myelocytes % (Man) Abs Neuts (Manual) Nucleated RBCs/100 WBC Differential Comment Toxic Granulation Platelet Estimate Platelet Morphology PT INR APTT Fibrinogen Sodium 138 138 Potassium 3.4 L 3.7 Chloride 99 D 98 Carbon Dioxide 20.5 L 28.5 Anion Gap 19 H 12 BUN 60 H 47 H Creatinine 3.34 H 2.99 H Estimated GFR 19 L 22 L POC Glucose 171 H Random Glucose 216 H 206 H Calcium 5.2 L* D 7.0 L* D Prot Corrected Calcium 6.7 L* D 8.5 D Phosphorus Magnesium Total Bilirubin AST ALT Alkaline Phosphatase Total Protein 3.6 L D 4.4 L D Albumin 02/06/18 02/06/18 02/06/18 18:06 20:54 21:35 WBC RBC Hgb Hct MCV MCH MCHC RDW Plt Count MPV Prelim Diff (Auto) Neut % (Auto) Lymph % (Auto) [place] % (Auto) Eos % (Auto) Baso % (Auto) Neut # (Auto) Lymph # (Auto) [place] # (Auto) Eos # (Auto) Baso # (Auto) WBC Differential Seg Neuts % (Manual) Band Neuts % (Manual) Monocytes % (Manual) Myelocytes % (Man) Abs Neuts (Manual) Nucleated RBCs/100 WBC Differential Comment Toxic Granulation Platelet Estimate Platelet Morphology PT INR APTT Fibrinogen Sodium 139 Potassium 3.8 Chloride 98 Carbon Dioxide 29.0 Anion Gap 12 BUN 48 H Creatinine 3.31 H Estimated GFR 19 L POC Glucose 204 H Random Glucose 212 H Calcium 6.8 L* Prot Corrected Calcium 8.2 L Phosphorus 2.9 D Magnesium 2.1 Total Bilirubin AST ALT Alkaline Phosphatase Total Protein 4.4 L Albumin 02/07/18 02/07/18 02/07/18 05:44 05:44 05:44 WBC 15.0 H RBC 3.42 L Hgb 10.2 L Hct 30.0 L MCV 87.9 MCH 29.8 MCHC 33.9 RDW 17.1 Plt Count 32 L D MPV 11.1 H Prelim Diff (Auto) Neut % (Auto) Lymph % (Auto) [place] % (Auto) Eos % (Auto) Baso % (Auto) Neut # (Auto) Lymph # (Auto) [place] # (Auto) Eos # (Auto) Baso # (Auto) WBC Differential Seg Neuts % (Manual) Band Neuts % (Manual) Monocytes % (Manual) Myelocytes % (Man) Abs Neuts (Manual) Nucleated RBCs/100 WBC Differential Comment Toxic Granulation Platelet Estimate Platelet Morphology PT 11.1 INR 1.1 APTT 32.4 H Fibrinogen 452 H Sodium 137 Potassium 3.8 Chloride 97 L Carbon Dioxide 23.7 Anion Gap 16 H BUN 59 H Creatinine 3.64 H Estimated GFR 17 L POC Glucose Random Glucose 248 H Calcium 7.8 L D Prot Corrected Calcium Phosphorus 5.4 H D Magnesium 2.2 Total Bilirubin 4.6 H AST 229 H ALT 76 Alkaline Phosphatase 164 H Total Protein 4.3 L Albumin 0.9 L 02/07/18 02/07/18 02/07/18 08:30 08:30 11:51 WBC 12.2 H RBC 3.01 L Hgb 8.8 L Hct 26.4 L MCV 87.9 MCH 29.4 MCHC 33.4 RDW 16.9 Plt Count 25 L MPV 10.0 Prelim Diff (Auto) Slide review pending Neut % (Auto) 91.1 H Lymph % (Auto) 5.5 L [place] % (Auto) 1.1 Eos % (Auto) 1.9 Baso % (Auto) 0.4 Neut # (Auto) 11.1 H Lymph # (Auto) 0.7 L [place] # (Auto) 0.1 Eos # (Auto) 0.2 Baso # (Auto) 0.1 WBC Differential Manual diff final Seg Neuts % (Manual) 88 H Band Neuts % (Manual) 10 H Monocytes % (Manual) 1 Myelocytes % (Man) 1 H Abs Neuts (Manual) 12.1 H Nucleated RBCs/100 WBC 1 H Differential Comment . Toxic Granulation 1+ H Platelet Estimate Low L Platelet Morphology Normal PT INR APTT Fibrinogen Sodium 139 Potassium 3.9 Chloride 99 Carbon Dioxide 24.9 Anion Gap 15 BUN 52 H Creatinine 3.45 H Estimated GFR 19 L POC Glucose 169 H Random Glucose 220 H Calcium 7.4 L* Prot Corrected Calcium 8.8 D Phosphorus Magnesium Total Bilirubin 4.3 H AST 198 H ALT 70 Alkaline Phosphatase 159 H Total Protein 4.7 L Albumin 1.5 L D Microbiology 02/06/18 10:59 Blood - Peripheral Aerobic Blood Culture - Preliminary gram positive cocci 02/06/18 10:59 Blood - Peripheral Anaerobic Blood Culture - Preliminary No growth in 1 day - Imaging Impressions Chest X-Ray 02/07/18 00:00 CONCLUSION: 1. Lines and tubes stable. 2. Interval development of left lower lung consolidation. Assessment and Plan - Assessment (1) Acute renal failure (ARF) Code(s): N17.9 - Acute kidney failure, unspecified Status: Acute (2) Sepsis Code(s): A41.9 - Sepsis, unspecified organism Status: Acute (3) Respiratory failure Code(s): J96.90 - Respiratory failure, unspecified, unspecified whether with hypoxia or hypercapnia Status: Acute (4) Hypotension Code(s): I95.9 - Hypotension, unspecified Status: Acute - Plan (1) Acute renal failure ICD Codes: N17.9 - Acute kidney failure, unspecified Plan: Patient has no urine output Cr higher CRRT started on 02/04. BP low normal off vasopressor Large pleural effusion was drained He has gram-negative in sputum Ceftaroline/Zerbaxa ID following HD done yesterday. ID want to get Vascath removed, will need tomorrow again if removed, as HD due in AM. Continue antibiotics. D/W the mother at bed side. (2) Sepsis ICD Codes: A41.9 - Sepsis, unspecified organism Plan: ID following (3) Rhabdomyolysis ICD Codes: M62.82 - Rhabdomyolysis Plan: On bicarbonate drip (4) UTI (lower urinary tract infection) ICD Codes: N39.0 - Urinary tract infection, site not specified Plan: Patient has staph infection and ID is following (5) Pneumonia ICD Codes: J18.9 - Pneumonia, unspecified organism Plan: Pleural effusion drained
--- NOTE | 2018-02-07 14:02 | P.PNID ---
Subjective Remarks: ID COVERAGE Most of the history of optimal review of medical records. is a 57-year-old male with very strong current history of alcohol abuse. His brother and [id number] were in the room report that he drinks greater than a pint for at least 25 years. Patient is a resident of [place] and reportedly moved here to be close to his brother. [facility]. Patient's brother reports that they often go to patient's house for safety checks. The last time he was reportedly normal was 5 days prior to him coming to the hospital. When patient' s brother went to visit him on the day of admission patient was markedly obtunded and difficult to arouse and had some matting of his eyelids and brother called EMS reportedly. When patient was seen by EMS she was found to be significantly encephalopathic and there was a concern for airway protection and therefore he was intubated for acute hypoxemia and hypercarbia. Reportedly was also an SVT with a heart rate greater than 200. In the emergency department he was cardioverted and was hypotensive requiring pressors. Patient was admitted to the ICU under critical care team. Patient is currently on vasopressors Larry-Synephrine at 100 mics, he is also on a propofol drip for sedation. He is currently on a ventilator with AC 50% FiO2, PEEP of 5 not much respiratory secretions noted. He also has a right-sided chest tube which was placed when a large effusion was noted on the CT scan. Per description by RN there was a lot of yellow looking purulent material noted when the chest tube was placed. Urology has been consulted because En[place] was difficult to be placed. Patient does not have much in terms of her urine output and is currently at 50 cc. GI is following patient as well. Sepsis workup was initiated on admission infectious diseases consulted for evaluation and management of septic shock secondary to possibly right-sided empyema. Overnight events reviewed with RN. Temp 102 F On neosynephrine and vasopressin Had HD yday All blood cultures with staph aureus, MSSA Pleural fluid with staph aureus, MSSA Urine culture with MSSA Sputum with Pseudomonas, E coli and MSSA Has a large hemorrhagic bullous lesion L palm No generalized rash No diarrhea. No BM. Antibiotics: Cefepime IV Flagyl IV Oxacillin IV Lines: MARIA DOLORES Gonzalez T[facility] Past Medical History: Diabetes Hypertension Significant EtOH history some shoulder surgery Allergies/Adverse Reactions: Allergies lisinopril Allergy (Severe, Verified 02/05/18 06:22) airway edema Sulfa (Sulfonamide Antibiotics) Allergy (Severe, Verified 02/05/18 06:22) Edema, Localized AIRWAY EDEMA Objective Vital Signs 02/06/18 14:00 02/06/18 15:00 02/06/18 16:00 Temperature Pulse Rate 111 H 105 H 106 H Respiratory Rate 18 18 18 Blood Pressure 102/60 103/62 100/62 Pulse Oximetry 94 L 96 96 02/06/18 16:02 02/06/18 16:04 02/06/18 17:00 Temperature Pulse Rate 108 H 100 H Respiratory Rate 18 18 18 Blood Pressure 103/63 Pulse Oximetry 94 L 02/06/18 17:10 02/06/18 18:00 02/06/18 19:00 Temperature Pulse Rate 171 H 101 H 100 H Respiratory Rate 18 18 Blood Pressure 127/61 124/63 Pulse Oximetry 94 L 93 L 02/06/18 19:53 02/06/18 20:00 02/06/18 21:00 Temperature 102 F H Pulse Rate 100 H 100 H 99 H Respiratory Rate 18 18 18 Blood Pressure 141/67 H 139/64 Pulse Oximetry 99 96 94 L 02/06/18 22:00 02/06/18 23:00 02/07/18 00:00 Temperature Pulse Rate 170 H 91 H 152 H Respiratory Rate 18 18 18 Blood Pressure 108/59 L 130/61 117/59 L Pulse Oximetry 90 L 93 L 94 L 02/07/18 01:00 02/07/18 02:00 02/07/18 03:00 Temperature Pulse Rate 80 80 134 H Respiratory Rate 18 18 2 L Blood Pressure 119/61 125/62 124/79 Pulse Oximetry 94 L 95 100 02/07/18 03:47 02/07/18 04:00 02/07/18 05:00 Temperature 97.7 F Pulse Rate 146 H 137 H Respiratory Rate 18 4 L 6 L Blood Pressure 125/68 115/63 Pulse Oximetry 95 96 96 02/07/18 06:00 02/07/18 07:00 02/07/18 08:00 Temperature 98.4 F Pulse Rate 137 H 80 79 Respiratory Rate 19 0 L 18 Blood Pressure 116/66 108/55 L 96/61 L Pulse Oximetry 96 95 92 L 02/07/18 09:00 02/07/18 09:58 02/07/18 10:00 Temperature Pulse Rate 142 H 122 H 132 H Respiratory Rate 18 18 Blood Pressure 103/61 100/58 L Pulse Oximetry 97 98 02/07/18 10:30 02/07/18 11:00 02/07/18 11:30 Temperature Pulse Rate 129 H 133 H 130 H Respiratory Rate 18 18 18 Blood Pressure 100/60 113/66 97/57 L Pulse Oximetry 98 98 97 02/07/18 12:00 02/07/18 12:09 Temperature 98.8 F Pulse Rate 128 H Respiratory Rate 18 18 Blood Pressure 83/61 L Pulse Oximetry 96 96 Intake & Output 02/06/18 02/07/18 02/07/18 18:59 06:59 18:59 Intake Total 1999 1050 / 1050 800 / 800 Output Total 2500 / 2500 360 / 360 0 / 0 Balance -500 / -500 690 / 690 800 / 800 Weight 101 kg Intake: IV 1999 1050 / 1050 800 / 800 Neosynephrine Inj 40 MG In D5W 1000 / 1000 Inj 496 ML @ 40 MCG/MIN 30 mls/ hr IV.CONT TITRATE PRN Rx#: [id number] Pitressin Inj 40 UNIT In D5W 100 / 100 Inj 98 ML @ 0.04 UNITS/MIN 6 mls/hr IV.CONT CONT [facility] Rx#: [id number] fentaNYL 10 mcg/mL Premix Drip 250 / 250 250 / 250 250 / 250 2,500 mcg In 250 ml @ 50 MCG/HR 5 mls/hr IV.CONT TITRATE PRN Rx#:[id number] Cordarone Inj 450 MG In NS Inj 250 / 250 250 / 250 241 ML @ 0.5 MG/MIN 16.66 mls/ hr IV.SIG .Q15H1M [facility] Rx#: [id number] Calcium Chloride Inj 1 GM In NS 100 / 100 100 / 100 Inj 90 ML @ 100 mls/hr IV.SIG Q6H [facility] Rx#:[id number] Maxipime Inj 2,000 MG In NS Inj 100 / 100 100 ML @ 200 mls/hr IV.SIG Q24H [facility] Rx#:[id number] Teflaro Inj 300 MG In NS Inj 100 / 100 100 ML @ 100 mls/hr IV.SIG Q12HR [facility] Rx#:[id number] Prostaphlin Inj 2 GM In NS Inj 400 / 400 100 / 100 100 ML @ 200 mls/hr IV.SIG Q4H [facility] Rx#:[id number] KCl 20 mEq Premix Inj 20 meq In 100 / 100 100 ml @ 50 mls/hr IV.SIG ONCE ONE Rx#:[id number] Flagyl 500 MG Inj 100 ML @ 100 200 / 200 200 / 200 100 / 100 mls/hr IV.SIG Q6H [facility] Rx#: [id number] Oral 0 / 0 Output: Urine 0 / 0 Hemodialysis Amount 2500 / 2500 0 / 0 Urine Amount (Catheter) 60 / 60 Coude 60 / 60 Gastric Drainage 300 / 300 Orogastric Tube 300 / 300 Chest Tube Drainage 0 / 0 0 / 0 #1 Right Anterior 0 / 0 0 / 0 Other: # Bowel Movements 0 02/06/18 10:59 Blood - Peripheral Aerobic Blood Culture - Preliminary gram positive cocci 02/06/18 10:59 Blood - Peripheral Anaerobic Blood Culture - Preliminary No growth in 1 day 02/07/18 03:59 Blood - Peripheral Aerobic Blood Culture - Pending 02/07/18 03:59 Blood - Peripheral Anaerobic Blood Culture - Pending Lab - Hematology Results 02/02/18 02/03/18 02/04/18 16:22 04:15 04:55 WBC 3.4 L 3.6 L 14.4 H RBC 4.98 4.60 4.09 L Hgb 14.7 13.6 12.2 L Hct 44.2 40.4 36.0 L MCV 88.8 87.9 88.2 MCH 29.6 29.7 29.8 MCHC 33.3 33.8 33.8 RDW 15.9 16.2 16.1 Plt Count 50 L D 61 L 76 L MPV 11.3 H 11.5 H 10.8 Prelim Diff (Auto) Neut % (Auto) 92.4 H 93.9 H Lymph % (Auto) 4.4 L 3.0 L [place] % (Auto) 2.6 0.5 Eos % (Auto) 0.4 2.0 Baso % (Auto) 0.2 0.6 Neut # (Auto) 3.2 13.6 H Lymph # (Auto) 0.2 L 0.4 L [place] # (Auto) 0.1 0.1 Eos # (Auto) 0.0 0.3 Baso # (Auto) 0.0 0.1 CBC Comment AUTO DIFF AUTO DIFF WBC Differential Total Counted 100 100 Neutrophils % (Manual) 63 56 Seg Neuts % (Manual) Band Neutrophils % 30 H 38 H Band Neuts % (Manual) Lymphocytes % 4 L Monocytes % 2 4 Monocytes % (Manual) Eosinophils % 1 Myelocytes % (Man) Neutrophils # (Manual) 3.2 13.8 H Abs Neuts (Manual) Metamyelocytes 2 H Nucleated RBCs 3 H Nucleated RBCs/100 WBC Differential Comment FINAL DIFF MANUAL FINAL DIFF MANUAL Toxic Granulation 3+ H 1+ H Toxic Vacuolation PRESENT H Dohle Bodies PRESENT H PRESENT H Platelet Estimate LOW L LOW L Platelet Morphology Plt Morphology Comment NORMAL ENLARGED H Target Cells Tear Drop Cells Logan Cells 2+ H RBC Morph Comment NORMAL 02/05/18 02/06/18 02/07/18 01:30 03:40 05:44 WBC 18.0 H 24.5 H 15.0 H RBC 3.98 L 3.97 L 3.42 L Hgb 12.0 L 11.7 L 10.2 L Hct 34.5 L 35.0 L 30.0 L MCV 86.7 88.1 87.9 MCH 30.2 29.3 29.8 MCHC 34.8 33.3 33.9 RDW 16.8 17.0 17.1 Plt Count 69 L 66 L 32 L D MPV 11.3 H 11.0 11.1 H Prelim Diff (Auto) Neut % (Auto) Lymph % (Auto) [place] % (Auto) Eos % (Auto) Baso % (Auto) Neut # (Auto) Lymph # (Auto) [place] # (Auto) Eos # (Auto) Baso # (Auto) CBC Comment AUTO DIFF WBC Differential Total Counted 100 Neutrophils % (Manual) 71 H Seg Neuts % (Manual) Band Neutrophils % 20 H Band Neuts % (Manual) Lymphocytes % 1 L Monocytes % 3 Monocytes % (Manual) Eosinophils % Myelocytes % (Man) Neutrophils # (Manual) 17.3 H Abs Neuts (Manual) Metamyelocytes 5 H Nucleated RBCs Nucleated RBCs/100 WBC Differential Comment FINAL DIFF MANUAL Toxic Granulation 1+ H Toxic Vacuolation PRESENT H Dohle Bodies PRESENT H Platelet Estimate LOW L Platelet Morphology Plt Morphology Comment ENLARGED H Target Cells 1+ H Tear Drop Cells 3+ H Logan Cells RBC Morph Comment 02/07/18 08:30 WBC 12.2 H RBC 3.01 L Hgb 8.8 L Hct 26.4 L MCV 87.9 MCH 29.4 MCHC 33.4 RDW 16.9 Plt Count 25 L MPV 10.0 Prelim Diff (Auto) Slide review pending Neut % (Auto) 91.1 H Lymph % (Auto) 5.5 L [place] % (Auto) 1.1 Eos % (Auto) 1.9 Baso % (Auto) 0.4 Neut # (Auto) 11.1 H Lymph # (Auto) 0.7 L [place] # (Auto) 0.1 Eos # (Auto) 0.2 Baso # (Auto) 0.1 CBC Comment WBC Differential Manual diff final Total Counted Neutrophils % (Manual) Seg Neuts % (Manual) 88 H Band Neutrophils % Band Neuts % (Manual) 10 H Lymphocytes % Monocytes % Monocytes % (Manual) 1 Eosinophils % Myelocytes % (Man) 1 H Neutrophils # (Manual) Abs Neuts (Manual) 12.1 H Metamyelocytes Nucleated RBCs Nucleated RBCs/100 WBC 1 H Differential Comment . Toxic Granulation 1+ H Toxic Vacuolation Dohle Bodies Platelet Estimate Low L Platelet Morphology Normal Plt Morphology Comment Target Cells Tear Drop Cells Benedict Cells RBC Morph Comment Lab - Chemistry Results 02/02/18 02/02/18 02/02/18 16:22 16:22 16:22 Sodium 133 L Potassium 3.4 L Chloride 96 L Carbon Dioxide 10.9 L Anion Gap 26 H BUN 81 H Creatinine 5.71 H Estimated GFR 10 L POC Glucose Random Glucose 142 H Serum Osmolality Lactic Acid Calcium 5.8 L* Prot Corrected Calcium 6.5 L* Phosphorus Magnesium Iron TIBC % Saturation Ferritin Total Bilirubin 1.7 H AST 1685 H ALT 307 H Alkaline Phosphatase 66 Ammonia LESS THAN 10 L Total Creatine Kinase 1286 H CK-MB (CK-2) 8.6 H CK-MB (CK-2) % 0.7 Troponin I 0.03 Total Protein 5.4 L D Albumin 1.8 L Prealbumin LESS THAN 3 L Huipo-4-Ennkpttltsb Amylase Lipase Tumor Marker AFP TSH 3rd Generation 1.610 02/02/18 02/02/18 02/02/18 16:22 17:14 21:30 Sodium 138 Potassium Chloride Carbon Dioxide Anion Gap BUN Creatinine Estimated GFR POC Glucose Random Glucose Serum Osmolality 304 H Lactic Acid 6.5 H* Calcium Prot Corrected Calcium Phosphorus Magnesium Iron TIBC % Saturation Ferritin Total Bilirubin AST ALT Alkaline Phosphatase Ammonia Total Creatine Kinase 1596 H CK-MB (CK-2) 8.8 H CK-MB (CK-2) % 0.6 Troponin I 0.04 Total Protein Albumin Prealbumin Goyfz-4-Logksijjsyc Amylase Lipase Tumor Marker AFP TSH 3rd Generation 02/02/18 02/03/18 02/03/18 21:30 04:15 04:15 Sodium 136 Potassium 3.4 L Chloride 97 L Carbon Dioxide 15.5 L Anion Gap 24 H BUN 85 H Creatinine 5.55 H Estimated GFR 11 L POC Glucose Random Glucose 121 H Serum Osmolality Lactic Acid 7.0 H* 6.6 H* Calcium 6.8 L* D Prot Corrected Calcium 7.9 L D Phosphorus 5.0 H Magnesium 2.0 Iron TIBC % Saturation Ferritin Total Bilirubin 2.4 H AST 1778 H ALT 294 H Alkaline Phosphatase 67 Ammonia Total Creatine Kinase 2164 H CK-MB (CK-2) 9.3 H CK-MB (CK-2) % 0.4 Troponin I 0.09 H Total Protein 4.9 L Albumin 1.4 L Prealbumin Gvjsv-8-Swthoceoicb Amylase Lipase Tumor Marker AFP [facility] 3rd Generation 02/03/18 02/03/18 02/03/18 12:00 12:22 13:50 Sodium 136 133 L Potassium 4.1 Chloride 92 L Carbon Dioxide 17.4 L Anion Gap 24 H BUN 91 H Creatinine 5.85 H Estimated GFR 10 L POC Glucose Random Glucose 133 H Serum Osmolality Lactic Acid 7.8 H* Calcium 6.5 L* Prot Corrected Calcium 7.6 L Phosphorus Magnesium Iron TIBC % Saturation Ferritin Total Bilirubin AST ALT Alkaline Phosphatase Ammonia Total Creatine Kinase 2688 H CK-MB (CK-2) 9.5 H CK-MB (CK-2) % 0.4 Troponin I 0.10 H Total Protein 4.9 L Albumin Prealbumin Mwetq-8-Fidxvwfprrk Amylase Lipase Tumor Marker AFP TSH 3rd Generation 02/03/18 02/03/18 02/03/18 15:45 15:45 15:45 Sodium Potassium Chloride Carbon Dioxide Anion Gap BUN Creatinine Estimated GFR POC Glucose Random Glucose Serum Osmolality Lactic Acid Calcium Prot Corrected Calcium Phosphorus Magnesium Iron TIBC % Saturation Ferritin Total Bilirubin AST ALT Alkaline Phosphatase Ammonia LESS THAN 10 L Total Creatine Kinase CK-MB (CK-2) CK-MB (CK-2) % Troponin I Total Protein Albumin Prealbumin Wkuej-5-Mxkdiwyafmz 433 H Amylase Lipase Tumor Marker AFP 0.8 TSH 3rd Generation 02/04/18 02/04/18 02/04/18 04:55 04:55 12:46 Sodium 131 L 130 L Potassium 4.0 3.9 Chloride 86 L 84 L Carbon Dioxide 20.4 L 27.1 Anion Gap 25 H 19 H BUN 93 H 97 H Creatinine 5.87 H 5.78 H Estimated GFR 10 L 10 L POC Glucose Random Glucose 218 H 193 H Serum Osmolality Lactic Acid 6.2 H* Calcium 5.9 L* 5.5 L* Prot Corrected Calcium 7.2 L* 6.7 L* D Phosphorus 8.0 H D Magnesium 1.8 Iron 30 L TIBC 126 L % Saturation 23.8 Ferritin 2246 H Total Bilirubin 3.8 H AST 1034 H ALT 184 H Alkaline Phosphatase 89 Ammonia Total Creatine Kinase 3357 H 3765 H CK-MB (CK-2) 13.8 H 12.6 H CK-MB (CK-2) % 0.4 0.3 Troponin I Total Protein 4.4 L 4.3 L Albumin 1.2 L Prealbumin Rgxzf-8-Myxxbenosow Amylase 49 Lipase 102 Tumor Marker AFP [facility] 3rd Generation 02/05/18 02/05/18 02/05/18 01:30 01:30 01:30 Sodium Cancelled 130 L Potassium Cancelled 3.5 Chloride Cancelled 86 L Carbon Dioxide Cancelled 29.1 Anion Gap Cancelled 15 BUN Cancelled 83 H D Creatinine Cancelled 4.35 H D Estimated GFR Cancelled 14 L POC Glucose Random Glucose Cancelled 180 H Serum Osmolality Lactic Acid 3.2 H Calcium Cancelled 5.1 L* Prot Corrected Calcium 6.2 L* D Phosphorus 4.7 D Magnesium 1.6 Iron TIBC % Saturation Ferritin Total Bilirubin 4.2 H AST 729 H ALT 145 H Alkaline Phosphatase 125 H Ammonia Total Creatine Kinase CK-MB (CK-2) CK-MB (CK-2) % Troponin I Total Protein 4.4 L Albumin 1.2 L Prealbumin Jgfzk-8-Efmgpkdzmqa Amylase Lipase Tumor Marker AFP TSH 3rd Generation 02/05/18 02/06/18 02/06/18 21:00 03:40 08:00 Sodium 133 L 134 L 132 L Potassium 3.7 3.6 4.0 Chloride 89 L 91 L 90 L Carbon Dioxide 23.6 22.6 24.1 Anion Gap 20 H 20 H 18 H BUN 57 H D 62 H 67 H Creatinine 2.98 H D 3.45 H 3.79 H Estimated GFR 22 L 19 L 17 L POC Glucose Random Glucose 187 H 205 H 229 H Serum Osmolality Lactic Acid Calcium LESS THAN 5.0 L* 6.2 L* 6.2 L* Prot Corrected Calcium 7.4 L* 7.5 L Phosphorus 4.4 Magnesium 1.8 Iron TIBC % Saturation Ferritin Total Bilirubin 4.6 H AST 486 H ALT 118 H Alkaline Phosphatase 163 H Ammonia Total Creatine Kinase CK-MB (CK-2) CK-MB (CK-2) % Troponin I Total Protein 4.6 L 4.4 L Albumin 1.1 L Prealbumin 4 L Syvqw-8-Sdlrtnvwlrt Amylase Lipase Tumor Marker AFP [facility] 3rd Generation 02/06/18 02/06/18 02/06/18 10:24 12:50 16:23 Sodium 138 Potassium 3.4 L Chloride 99 D Carbon Dioxide 20.5 L Anion Gap 19 H BUN 60 H Creatinine 3.34 H Estimated GFR 19 L POC Glucose 250 H 171 H Random Glucose 216 H Serum Osmolality Lactic Acid Calcium 5.2 L* D Prot Corrected Calcium 6.7 L* D Phosphorus Magnesium Iron TIBC % Saturation Ferritin Total Bilirubin AST ALT Alkaline Phosphatase Ammonia Total Creatine Kinase CK-MB (CK-2) CK-MB (CK-2) % Troponin I Total Protein 3.6 L D Albumin Prealbumin Aychu-9-Fkyurqnirkb Amylase Lipase Tumor Marker AFP [facility] 3rd Generation 02/06/18 02/06/18 02/06/18 18:06 18:06 20:54 Sodium 138 Potassium 3.7 Chloride 98 Carbon Dioxide 28.5 Anion Gap 12 BUN 47 H Creatinine 2.99 H Estimated GFR 22 L POC Glucose 204 H Random Glucose 206 H Serum Osmolality Lactic Acid Calcium 7.0 L* D Prot Corrected Calcium 8.5 D Phosphorus 2.9 D Magnesium 2.1 Iron TIBC % Saturation Ferritin Total Bilirubin AST ALT Alkaline Phosphatase Ammonia Total Creatine Kinase CK-MB (CK-2) CK-MB (CK-2) % Troponin I Total Protein 4.4 L D Albumin Prealbumin Khsls-9-Cvviibrobly Amylase Lipase Tumor Marker AFP [facility] 3rd Generation 02/06/18 02/07/18 02/07/18 21:35 05:44 08:30 Sodium 139 137 139 Potassium 3.8 3.8 3.9 Chloride 98 97 L 99 Carbon Dioxide 29.0 23.7 24.9 Anion Gap 12 16 H 15 BUN 48 H 59 H 52 H Creatinine 3.31 H 3.64 H 3.45 H Estimated GFR 19 L 17 L 19 L POC Glucose Random Glucose 212 H 248 H 220 H Serum Osmolality Lactic Acid Calcium 6.8 L* 7.8 L D 7.4 L* Prot Corrected Calcium 8.2 L 8.8 D Phosphorus 5.4 H D Magnesium 2.2 Iron TIBC % Saturation Ferritin Total Bilirubin 4.6 H 4.3 H AST 229 H 198 H ALT 76 70 Alkaline Phosphatase 164 H 159 H Ammonia Total Creatine Kinase CK-MB (CK-2) CK-MB (CK-2) % Troponin I Total Protein 4.4 L 4.3 L 4.7 L Albumin 0.9 L 1.5 L D Prealbumin Pgtzt-4-Nrmrolxccxs Amylase Lipase Tumor Marker AFP TSH 3rd Generation 02/07/18 11:51 Sodium Potassium Chloride Carbon Dioxide Anion Gap BUN Creatinine Estimated GFR POC Glucose 169 H Random Glucose Serum Osmolality Lactic Acid Calcium Prot Corrected Calcium Phosphorus Magnesium Iron TIBC % Saturation Ferritin Total Bilirubin AST ALT Alkaline Phosphatase Ammonia Total Creatine Kinase CK-MB (CK-2) CK-MB (CK-2) % Troponin I Total Protein Albumin Prealbumin Ovmid-0-Cqnhvnhwigz Amylase Lipase Tumor Marker AFP TSH 3rd Generation Imaging: ITS Impressions Chest X-Ray 02/07/18 00:00 CONCLUSION: 1. Lines and tubes stable. 2. Interval development of left lower lung consolidation. Physical Exam: Physical Exam GENERAL: Sedated, on the vent, NAD SKIN: Cool and dry, no generalized rash HEAD: Atraumatic. Normocephalic. No temporal or scalp tenderness. EYES: Pupils equal round and reactive. Scleral icterus. No injection or drainage. No petechia ENT: Orally intubated NECK: Trachea midline. Supple, nontender, no meningeal signs. CARDIOVASCULAR: HS audible. RESPIRATORY: AE decreased in the bases R>L. Right side CT with serous fluid noted GASTROINTESTINAL: Abdomen distended, some grimacing during palpation MUSCULOSKELETAL: Extremities without clubbing, cyanosis. Mild pedal edema. Both feet are cool to touch. Has a large hemorrhagic bullous lesion on L palm NEUROLOGICAL: Sedated Psych could not be assessed IV line sites ok. Assessment and Plan - Plan MSSA sepsis, Septic Shock, on pressors Right side Pulm Empyema, MSSA Rule out endocarditis. Polymicrobial PNA ( PSAE, second GNR, Staph aureus) also likely aspiration in setting of alcoholism Cardiomegaly: ? alcohol related vs CAD. MSSA in urine. Acute resp failure on vent Acute oliguric renal failure: prerenal, sepsis. - on CVVHD Acute metabolic encephalopathy: sepsis, metabolic. Leukocytosis Thrombocytopenia: sepsis, no DIC RECOMMENDATION Change to Oxacillin for MSSA Continue IV Cefepime for PSAE and E coli Continue Flagyl for aspiration PNA Start Teflaro IV Repeat BC to document clearing Troy Aguirre to change Central line and HD cath. EMILY if goals remain aggressive. Cholecystostomy per GI although I suspect ongoing sepsis more from MSSA sepsis. If lines removed please send tips for culture. Source control is essential. troy Oscar he is ok with HD cath removal as HD planned for tomorrow. His platelets are low await troy palliative care. troy Palliative care : patients family would like aggressive medical management. Follow cultures Monitor progress D/W RN
[2018-02-08] MEDS: Amiodarone Inj 450 MG in Sodium Chlor 0.9% Inj 241 ML IV.SIG SCH ×2 (00:17→16:39)
[2018-02-08 01:30] LABS: Carbon Dioxide 25.3 meq/L (21.0-32.0); Potassium 3.4 meq/L (3.5-5.1)
[2018-02-08 01:31] LABS: Calcium 7.3 mg/dL (8.5-10.1)
[2018-02-08 02:02] LABS: Calcium-Albumin Corrected 8.7 mg/dL (8.5-10.1); Total Protein 4.7 g/dL (6.4-8.2)
[2018-02-08] MEDS: fentaNYL 10 mcg/mL Premix Drip 2,500 MCG/250 ML BAG IV.CONT PRN (02:04)
[2018-02-08] MEDS: Chlorhexidine Gluconate 2% 1 Pack (2 Cloths) TOPICAL SCH (04:34)
[2018-02-08 05:08] LABS: Baso % (Auto) 0.3 % (0.0-2.0); Eos % (Auto) 0.2 % (0.0-4.0); Hematocrit 25.5 % (39.0-51.0); Hemoglobin 8.7 gm/dL (13.0-17.0); Lymph # (Auto) 0.5 th/mm3 (1.0-4.8); Lymph % (Auto) 4.8 % (9.0-44.0); Mean Corpuscular HGB Conc 34.2 % (32.0-36.0); Mean Corpuscular Hemoglobin 29.9 pg (27.0-34.0); Mean Corpuscular Volume 87.5 fL (80.0-100.0); Mean Platelet Volume 10.8 fL (7.0-11.0); Mono # (Auto) 0.2 th/mm3 (0.0-0.9); Mono % (Auto) 1.9 % (0.0-8.0); Neut # (Auto) 9.8 th/mm3 (1.8-7.7); Neut % (Auto) 92.8 % (16.0-70.0); Platelet Count 29 th/mm3 (150-450); Red Blood Count 2.92 mil/mm3 (4.50-5.90); Red Cell Distribution Width 17.1 % (11.6-17.2); White Blood Count 10.5 th/mm3 (4.0-11.0)
[2018-02-08 05:31] LABS: Albumin 1.6 g/dL (3.4-5.0); Calcium 7.4 mg/dL (8.5-10.1); Carbon Dioxide 23.8 meq/L (21.0-32.0); Potassium 3.4 meq/L (3.5-5.1); Total Protein 4.8 g/dL (6.4-8.2)
[2018-02-08] MEDS: Insulin NovoLIN Regular Correctional Sugar Inj SQ SCH ×4 (08:02→21:52)
[2018-02-08] MEDS: Chlorhexidine 0.12% Oral Kit 15 ML UDC OROPHARYNG SCH ×2 (08:02→21:53)
[2018-02-08] MEDS: Pantoprazole Inj 40 MG Vial IV.PUSH SCH (08:03)
--- NOTE | 2018-02-08 08:16 | P.PNCC ---
Subjective Subjective Remarks/Hospital Course: 02/05: This is a 57-year-old male with a strong history of EtOH abuse, his family states that he drinks greater than a pint today times at least 25 years. He was found unresponsive at home this afternoon. The last time he was seen normal was 5 days ago. He was brought in by EMS and was severely altered. He was intubated for acute hypoxemia and hypercarbia. He was also in a supraventricular tachycardia with a heart rate greater than 200. In the emergency department he was electrically cardioverted 2 without success, and given 5 mill grams of IV Lopressor which caused severe hypotension, but did not resolve his tachycardia. Immediately upon being notified went down to the emergency department evaluated the patient and transported him up to the intensive care unit. Once in the intensive care unit, I placed arterial and central lines, see separate procedure note for details. I loaded the patient with 150 mg of amiodarone and 2 g magnesium. In addition, the patient has a blood gas with severe metabolic acidosis and a pH less than 7.2. I gave 4 A of sodium bicarbonate as well as 1 g of calcium chloride for severe hypocalcemia. After these interventions, the patient spontaneously converted to a sinus tachycardia. The patient was placed on norepinephrine for persistent hypotension and shock. The emergency department attempted to place a 16 Danish Ennis catheter and was unsuccessful with this. I attempted an additional time to place both an 18 Danish coud catheter as well as a 24 Danish three-way catheter, both which were unsuccessful and met significant resistance at approximately 10-12 cm. I consulted urology and discussed the case with Dr. Worley who agrees to Place Ennis catheter tonight for emergent urine output monitoring while in shock. The patient remains altered no additional information is available from patient. ROS is unobtainable. 02/03 Patient is intubated on Levoped 5 mics, Amio and bicarb drips. 16Fr catheter was placed by Urology. 02/04 Patient remains intubated and sedated with Diprivan. Off Levophed on Neosyn 60mics. Right sided pig tail catheter placed yesterday with removal 1100ml cloudy fluid fluid analysis c/w empyema. Renal function declining with Cr: 5.87 and UOP 120ml in 12 hrs. Tmax 102.2 02/05: remains intubated and critically ill. on CVVHD. per RN, net -300/hr on CVVHD. off vasopressors this AM. 02/06: Remains sedated, orally intubated on mechanical ventilation. CRRT clotted off last night. Nephrology planning HD 02/07 Patient remains intubated and sedated with Fentanyl infusion. Off Neosyn remains on Vasopressin and Amio drip. T;102 last night. 02/08 No events overnight. Intubated and on Fentnayl infusion for sedation. Afebrile. Off all pressors. s/p HD yesterday. On Amio drip. Objective Vital Signs / I&O: Vital Signs 02/07/18 09:00 02/07/18 09:58 02/07/18 10:00 Temperature Pulse Rate 142 H 122 H 132 H Respiratory Rate 18 18 Blood Pressure 103/61 100/58 L Pulse Oximetry 97 98 02/07/18 10:30 02/07/18 11:00 02/07/18 11:30 Temperature Pulse Rate 129 H 133 H 130 H Respiratory Rate 18 18 18 Blood Pressure 100/60 113/66 97/57 L Pulse Oximetry 98 98 97 02/07/18 12:00 02/07/18 12:09 02/07/18 12:30 Temperature 98.8 F Pulse Rate 128 H 126 H Respiratory Rate 18 18 0 L Blood Pressure 83/61 L 88/58 L Pulse Oximetry 96 96 96 02/07/18 13:00 02/07/18 14:00 02/07/18 15:00 Temperature Pulse Rate 128 H 83 82 Respiratory Rate 18 18 18 Blood Pressure 92/56 L 118/59 L 100/55 L Pulse Oximetry 96 96 96 02/07/18 15:26 02/07/18 16:00 02/07/18 17:00 Temperature 99.2 F Pulse Rate 88 91 H Respiratory Rate 18 18 18 Blood Pressure 101/56 L 123/58 L Pulse Oximetry 97 96 97 02/07/18 18:00 02/07/18 20:00 02/07/18 20:01 Temperature 99.3 F Pulse Rate 89 89 Respiratory Rate 18 3 L 18 Blood Pressure 102/54 L 120/58 L Pulse Oximetry 96 97 97 02/07/18 21:02 02/07/18 22:00 02/07/18 22:33 Temperature Pulse Rate 86 88 Respiratory Rate 18 18 Blood Pressure Pulse Oximetry 97 02/08/18 00:00 02/08/18 00:34 02/08/18 01:45 Temperature 99.1 F Pulse Rate 90 90 Respiratory Rate 18 20 18 Blood Pressure 112/56 L Pulse Oximetry 96 97 02/08/18 02:00 02/08/18 04:00 02/08/18 04:36 Temperature 98.4 F Pulse Rate 98 H 94 H 94 H Respiratory Rate 19 Blood Pressure 118/56 L Pulse Oximetry 97 97 02/08/18 06:00 Temperature Pulse Rate 95 H Respiratory Rate Blood Pressure Pulse Oximetry Intake & Output 02/07/18 02/08/18 02/08/18 18:59 06:59 18:59 Intake Total 1299 / 1299 1020 / 1020 100 / 100 Output Total 95 / 95 25 / 25 Balance 1204 / 1204 995 / 995 100 / 100 Weight 103.5 kg Intake: IV 1299 / 1299 1020 / 1020 100 / 100 Pitressin Inj 40 UNIT In D5W 119 / 119 Inj 98 ML @ 0.04 UNITS/MIN 6 mls/hr IV.CONT CONT LEROY Rx#: [id number] fentaNYL 10 mcg/mL Premix Drip 330 / 330 170 / 170 2,500 mcg In 250 ml @ 50 MCG/HR 5 mls/hr IV.CONT TITRATE PRN Rx#:[id number] Cordarone Inj 450 MG In NS Inj 250 / 250 250 / 250 241 ML @ 0.5 MG/MIN 16.66 mls/ hr IV.SIG .Q15H1M LEROY Rx#: [id number] Calcium Chloride Inj 1 GM In NS 100 / 100 Inj 90 ML @ 100 mls/hr IV.SIG Q6H LEROY Rx#:[id number] Maxipime Inj 2,000 MG In NS Inj 100 / 100 100 ML @ 200 mls/hr IV.SIG Q24H LEROY Rx#:[id number] Teflaro Inj 600 MG In NS Inj 100 / 100 100 / 100 100 ML @ 100 mls/hr IV.SIG Q8H LEROY Rx#:[id number] Prostaphlin Inj 2 GM In NS Inj 200 / 200 200 / 200 100 / 100 100 ML @ 200 mls/hr IV.SIG Q4H LEROY Rx#:[id number] Flagyl 500 MG Inj 100 ML @ 100 200 / 200 200 / 200 mls/hr IV.SIG Q6H LEROY Rx#: [id number] Output: Hemodialysis Amount 0 / 0 Urine Amount (Catheter) Coude Gastric Drainage 75 / 75 Orogastric Tube 75 / 75 Chest Tube Drainage 0 / 0 #1 Right Anterior 0 / 0 Other: # Bowel Movements 0 Result Diagrams: 02/08/18 08:50 02/08/18 08:50 Objective Remarks: Objective Remarks GENERAL: Patient is 57 yo intubated and sedated. SKIN: Warm and dry. HEAD: Normocephalic. EYES: No scleral icterus. No injection or drainage. NECK: Supple, trachea midline. No JVD. CARDIOVASCULAR: Regular rate and rhythm. sinus. RESPIRATORY: Breath sounds equal bilaterally. No accessory muscle use. GASTROINTESTINAL: Abdomen soft, non-tender, nondistended. MUSCULOSKELETAL: No cyanosis, or edema. Neuro: Intubated, sedated Assessment and Plan - Assessment and Plan Plan: A/P Plan by systems: Neurologic: Acute metabolic encephalopathy etoh abuse Likely secondary to EtOH abuse Monitor neuro status, on Thiamine/MVI/ On Fentanyl infusion for sedation. Daily sedation vacation CT brain : No acute process on 02/02 Check EEG Respiratory: Acute hypoxic and hypercarbic respiratory failure Right sided empyema Continue with vent support keep sats >92% Bronchodilates, ICU vent bundle. s/p right pigtail catheter placement 02/03 Pleural fluid analysis c/w empyema, monitor CT drainage. CXR post CT placement showed significant improvement on right. Cardiovascular: Mixed hypovolemic and septic shock Atrial fibrillation with rapid ventricular response Monitor HR and BP keep MAP>65mmHg Status post 5 L crystalloid resuscitation in the emergency department Lactic acid is trending down Echo showed EF 60-65%, no RWMA Cards consulted for EMILY ( persistent bacteremia) Renal: Acute kidney injury-severe Acute rhabdomyolysis Obstructive uropathy BPH Monitor renal function, I/O's, avoid nephrotoxins Urology is following- s/p 16Fr Ennis catheter placement Renal is following- Dr. Dinh. s/p HD yesterday FEN/GI: Elevated LFT's with hyperbilirubinemia Acute protein calorie malnutrition: S Start tube feeds ( Nepro) with goal rate 40ml/hr Ammonia level <10 on 02/02 Hepatitis profile: Non reactive, Heme/ID: Coagulopathy, probably secondary to end-stage liver disease Thrombocytopenia, secondary to shock Leukopenia, secondary septic shock On Teflaro, Cefepime, Oxacillin and Flagyl per ID Monitor for signs of infections ( Fever, WBC) follow up on cultures 02/07 BC GPC 1/4 bottles 02/02 Sputum cx: GNR 02/02 Urine cx: Staph Aureus 02/03 BC: GPC 1/ bottles 02/03 Fluid cx: NGTD HIV ab: non reactive Monitor CBC, coags, will transfuse 1u PLT pheresis for PLT 29 prior to vascath placement. Endocrine: Hyperglycemia of critical illness -- SSI, TSH 1.6 Prophylaxis: GI Prophylaxis Protonix IV DVT Prophylaxis -- SCDs - Subcu heparin on hold for thrombocytopenia Palliative care is following Code status: Alternative code Lines: Right IJ vascath d/c yesterday will d/c central line today Condition critical Time spent on critical care excluding procedures 30 minutes
[2018-02-08 08:34] LABS: Lymphocytes 1 % (9-44); Monocytes 1 % (0-8); Myelocytes 2 % (0-0); Tallied Nucleated RBC 2 (0-0)
[2018-02-08 08:35] LABS: Stomatocytes 1+; Toxic Granulation 1+
[2018-02-08 10:53] LABS: Baso # (Auto) 0.1 th/mm3 (0.0-0.2); Baso % (Auto) 0.6 % (0.0-2.0); Eos % (Auto) 0.3 % (0.0-4.0); Hematocrit 25.3 % (39.0-51.0); Hemoglobin 8.5 gm/dL (13.0-17.0); Lymph # (Auto) 0.4 th/mm3 (1.0-4.8); Lymph % (Auto) 4.8 % (9.0-44.0); Mean Corpuscular HGB Conc 33.7 % (32.0-36.0); Mean Corpuscular Hemoglobin 30.2 pg (27.0-34.0); Mean Corpuscular Volume 89.7 fL (80.0-100.0); Mean Platelet Volume 9.7 fL (7.0-11.0); Mono # (Auto) 0.1 th/mm3 (0.0-0.9); Mono % (Auto) 1.1 % (0.0-8.0); Neut # (Auto) 8.7 th/mm3 (1.8-7.7); Neut % (Auto) 93.2 % (16.0-70.0); Platelet Count 33 th/mm3 (150-450); Red Blood Count 2.82 mil/mm3 (4.50-5.90); Red Cell Distribution Width 16.9 % (11.6-17.2); White Blood Count 9.3 th/mm3 (4.0-11.0)
[2018-02-08 11:23] LABS: Albumin 1.6 g/dL (3.4-5.0); Calcium 7.4 mg/dL (8.5-10.1); Potassium 3.7 meq/L (3.5-5.1); Total Protein 4.8 g/dL (6.4-8.2)
[2018-02-08 12:22] LABS: Eosinophils 1 % (0-4); Lymphocytes 1 % (9-44)
[2018-02-08 12:23] LABS: Platelet Morphology Normal (Normal)
--- NOTE | 2018-02-08 12:25 | P.PNID ---
Subjective Remarks: ID COVERAGE Most of the history of optimal review of medical records. is a 57-year-old male with very strong current history of alcohol abuse. His brother and [id number] were in the room report that he drinks greater than a pint for at least 25 years. Patient is a resident of [place] and reportedly moved here to be close to his brother. [facility]. Patient's brother reports that they often go to patient's house for safety checks. The last time he was reportedly normal was 5 days prior to him coming to the hospital. When patient' s brother went to visit him on the day of admission patient was markedly obtunded and difficult to arouse and had some matting of his eyelids and brother called EMS reportedly. When patient was seen by EMS she was found to be significantly encephalopathic and there was a concern for airway protection and therefore he was intubated for acute hypoxemia and hypercarbia. Reportedly was also an SVT with a heart rate greater than 200. In the emergency department he was cardioverted and was hypotensive requiring pressors. Patient was admitted to the ICU under critical care team. Patient is currently on vasopressors Larry-Synephrine at 100 mics, he is also on a propofol drip for sedation. He is currently on a ventilator with AC 50% FiO2, PEEP of 5 not much respiratory secretions noted. He also has a right-sided chest tube which was placed when a large effusion was noted on the CT scan. Per description by RN there was a lot of yellow looking purulent material noted when the chest tube was placed. Urology has been consulted because Ennis was difficult to be placed. Patient does not have much in terms of her urine output and is currently at 50 cc. GI is following patient as well. Sepsis workup was initiated on admission infectious diseases consulted for evaluation and management of septic shock secondary to possibly right-sided empyema. Overnight events reviewed with RN. Temp 102 F On neosynephrine and vasopressin Had HD yday All blood cultures with staph aureus, MSSA Pleural fluid with staph aureus, MSSA Urine culture with MSSA Sputum with Pseudomonas, E coli and MSSA Has a large hemorrhagic bullous lesion L palm No generalized rash No diarrhea. No BM. Antibiotics: Cefepime IV Flagyl IV Oxacillin IV Teflaro IV Lines: L TLC Past Medical History: Diabetes Hypertension Significant EtOH history some shoulder surgery Allergies/Adverse Reactions: Allergies lisinopril Allergy (Severe, Verified 02/05/18 06:22) airway edema Sulfa (Sulfonamide Antibiotics) Allergy (Severe, Verified 02/05/18 06:22) Edema, Localized AIRWAY EDEMA Objective Vital Signs 02/07/18 12:30 02/07/18 13:00 02/07/18 14:00 Temperature Pulse Rate 126 H 128 H 83 Respiratory Rate 0 L 18 18 Blood Pressure 88/58 L 92/56 L 118/59 L Pulse Oximetry 96 96 96 02/07/18 15:00 02/07/18 15:26 02/07/18 16:00 Temperature 99.2 F Pulse Rate 82 88 Respiratory Rate 18 18 18 Blood Pressure 100/55 L 101/56 L Pulse Oximetry 96 97 96 02/07/18 17:00 02/07/18 18:00 02/07/18 19:00 Temperature Pulse Rate 91 H 89 87 Respiratory Rate 18 18 5 L Blood Pressure 123/58 L 102/54 L 104/58 L Pulse Oximetry 97 96 97 02/07/18 20:00 02/07/18 20:01 02/07/18 21:00 Temperature 99.3 F Pulse Rate 89 86 Respiratory Rate 3 L 18 1 L Blood Pressure 120/58 L 108/57 L Pulse Oximetry 97 97 97 02/07/18 21:02 02/07/18 22:00 02/07/18 22:33 Temperature Pulse Rate 86 88 Respiratory Rate 18 17 18 Blood Pressure 105/58 L Pulse Oximetry 97 97 02/07/18 23:00 02/08/18 00:00 02/08/18 00:34 Temperature 99.1 F Pulse Rate 89 90 90 Respiratory Rate 18 18 20 Blood Pressure 109/59 L 112/56 L Pulse Oximetry 97 96 02/08/18 01:00 02/08/18 01:45 02/08/18 02:00 Temperature Pulse Rate 90 98 H Respiratory Rate 9 L 18 29 H Blood Pressure 109/59 L 165/95 H Pulse Oximetry 97 97 100 02/08/18 03:00 02/08/18 04:00 02/08/18 04:36 Temperature 98.4 F Pulse Rate 95 H 94 H 94 H Respiratory Rate 18 18 19 Blood Pressure 126/59 L 118/56 L Pulse Oximetry 96 97 97 02/08/18 05:00 02/08/18 06:00 02/08/18 07:00 Temperature Pulse Rate 94 H 95 H 96 H Respiratory Rate 18 18 18 Blood Pressure 118/56 L 114/56 L 112/56 L Pulse Oximetry 97 98 98 02/08/18 08:00 02/08/18 08:47 02/08/18 09:00 Temperature 100.1 F H Pulse Rate 100 H 97 H 100 H Respiratory Rate 18 18 18 Blood Pressure 114/59 L 119/57 L Pulse Oximetry 97 98 97 02/08/18 10:00 02/08/18 12:14 Temperature Pulse Rate 100 H 97 H Respiratory Rate 18 Blood Pressure Pulse Oximetry 97 Intake & Output 02/07/18 02/08/18 02/08/18 18:59 06:59 18:59 Intake Total 1299 / 1299 1020 / 1020 278 / 278 Output Total 95 / 95 25 / 25 Balance 1204 / 1204 995 / 995 278 / 278 Weight 103.5 kg Intake: IV 1299 / 1299 1020 / 1020 278 / 278 Neosynephrine Inj 40 MG In D5W 178 / 178 Inj 496 ML @ 40 MCG/MIN 30 mls/ hr IV.CONT TITRATE PRN Rx#: [id number] Pitressin Inj 40 UNIT In D5W 119 / 119 0 / 0 Inj 98 ML @ 0.04 UNITS/MIN 6 mls/hr IV.CONT CONT LEROY Rx#: [id number] fentaNYL 10 mcg/mL Premix Drip 330 / 330 170 / 170 2,500 mcg In 250 ml @ 50 MCG/HR 5 mls/hr IV.CONT TITRATE PRN Rx#:[id number] Cordarone Inj 450 MG In NS Inj 250 / 250 250 / 250 241 ML @ 0.5 MG/MIN 16.66 mls/ hr IV.SIG .Q15H1M LEROY Rx#: [id number] Calcium Chloride Inj 1 GM In NS 100 / 100 Inj 90 ML @ 100 mls/hr IV.SIG Q6H LEROY Rx#:[id number] Maxipime Inj 2,000 MG In NS Inj 100 / 100 100 ML @ 200 mls/hr IV.SIG Q24H LEROY Rx#:[id number] Teflaro Inj 600 MG In NS Inj 100 / 100 100 / 100 100 ML @ 100 mls/hr IV.SIG Q8H LEROY Rx#:[id number] Prostaphlin Inj 2 GM In NS Inj 200 / 200 200 / 200 100 / 100 100 ML @ 200 mls/hr IV.SIG Q4H LEROY Rx#:[id number] Flagyl 500 MG Inj 100 ML @ 100 200 / 200 200 / 200 mls/hr IV.SIG Q6H LEROY Rx#: [id number] Output: Hemodialysis Amount 0 / 0 Urine Amount (Catheter) Coude Gastric Drainage 75 / 75 Orogastric Tube 75 / 75 Chest Tube Drainage 0 / 0 #1 Right Anterior 0 / 0 Other: # Bowel Movements 0 02/07/18 03:59 Blood - Peripheral Aerobic Blood Culture - Preliminary gram positive cocci 02/07/18 03:59 Blood - Peripheral Anaerobic Blood Culture - Preliminary No growth in 1 day 02/06/18 10:59 Blood - Peripheral Aerobic Blood Culture - Preliminary gram positive cocci 02/06/18 10:59 Blood - Peripheral Anaerobic Blood Culture - Preliminary No growth in 2 days Lab - Hematology Results 02/07/18 02/07/18 02/08/18 05:44 08:30 04:30 WBC 15.0 H 12.2 H 10.5 RBC 3.42 L 3.01 L 2.92 L Hgb 10.2 L 8.8 L 8.7 L Hct 30.0 L 26.4 L 25.5 L MCV 87.9 87.9 87.5 MCH 29.8 29.4 29.9 MCHC 33.9 33.4 34.2 RDW 17.1 16.9 17.1 Plt Count 32 L D 25 L 29 L MPV 11.1 H 10.0 10.8 Prelim Diff (Auto) Slide review pending Slide review pending Neut % (Auto) 91.1 H 92.8 H Lymph % (Auto) 5.5 L 4.8 L Trigg % (Auto) 1.1 1.9 Eos % (Auto) 1.9 0.2 Baso % (Auto) 0.4 0.3 Neut # (Auto) 11.1 H 9.8 H Lymph # (Auto) 0.7 L 0.5 L Trigg # (Auto) 0.1 0.2 Eos # (Auto) 0.2 0.0 Baso # (Auto) 0.1 0.0 WBC Differential Manual diff final Manual diff final Seg Neuts % (Manual) 88 H 83 H Band Neuts % (Manual) 10 H 13 H Lymphocytes % (Manual) 1 L Monocytes % (Manual) 1 1 Myelocytes % (Man) 1 H 2 H Abs Neuts (Manual) 12.1 H 10.3 H Nucleated RBCs/100 WBC 1 H 2 H Differential Comment . . Toxic Granulation 1+ H 1+ H Platelet Estimate Low L Low L Platelet Morphology Normal Enlarged H Stomatocytes 1+ H 02/08/18 08:50 WBC 9.3 RBC 2.82 L Hgb 8.5 L Hct 25.3 L MCV 89.7 MCH 30.2 MCHC 33.7 RDW 16.9 Plt Count 33 L MPV 9.7 Prelim Diff (Auto) Slide review pending Neut % (Auto) 93.2 H Lymph % (Auto) 4.8 L Trigg % (Auto) 1.1 Eos % (Auto) 0.3 Baso % (Auto) 0.6 Neut # (Auto) 8.7 H Lymph # (Auto) 0.4 L Trigg # (Auto) 0.1 Eos # (Auto) 0.0 Baso # (Auto) 0.1 WBC Differential Seg Neuts % (Manual) Band Neuts % (Manual) Lymphocytes % (Manual) Monocytes % (Manual) Myelocytes % (Man) Abs Neuts (Manual) Nucleated RBCs/100 WBC Differential Comment . Toxic Granulation Platelet Estimate Platelet Morphology Stomatocytes Lab - Chemistry Results 02/06/18 02/06/18 02/06/18 12:50 16:23 18:06 Sodium 138 138 Potassium 3.4 L 3.7 Chloride 99 D 98 Carbon Dioxide 20.5 L 28.5 Anion Gap 19 H 12 BUN 60 H 47 H Creatinine 3.34 H 2.99 H Estimated GFR 19 L 22 L POC Glucose 171 H Random Glucose 216 H 206 H Calcium 5.2 L* D 7.0 L* D Prot Corrected Calcium 6.7 L* D 8.5 D Phosphorus Magnesium Total Bilirubin AST ALT Alkaline Phosphatase Total Protein 3.6 L D 4.4 L D Albumin 02/06/18 02/06/18 02/06/18 18:06 20:54 21:35 Sodium 139 Potassium 3.8 Chloride 98 Carbon Dioxide 29.0 Anion Gap 12 BUN 48 H Creatinine 3.31 H Estimated GFR 19 L POC Glucose 204 H Random Glucose 212 H Calcium 6.8 L* Prot Corrected Calcium 8.2 L Phosphorus 2.9 D Magnesium 2.1 Total Bilirubin AST ALT Alkaline Phosphatase Total Protein 4.4 L Albumin 02/07/18 02/07/18 02/07/18 05:44 08:30 11:51 Sodium 137 139 Potassium 3.8 3.9 Chloride 97 L 99 Carbon Dioxide 23.7 24.9 Anion Gap 16 H 15 BUN 59 H 52 H Creatinine 3.64 H 3.45 H Estimated GFR 17 L 19 L POC Glucose 169 H Random Glucose 248 H 220 H Calcium 7.8 L D 7.4 L* Prot Corrected Calcium 8.8 D Phosphorus 5.4 H D Magnesium 2.2 Total Bilirubin 4.6 H 4.3 H AST 229 H 198 H ALT 76 70 Alkaline Phosphatase 164 H 159 H Total Protein 4.3 L 4.7 L Albumin 0.9 L 1.5 L D 02/07/18 02/07/18 02/08/18 17:14 21:25 00:30 Sodium 143 Potassium 3.4 L Chloride 104 Carbon Dioxide 25.3 Anion Gap 14 BUN 49 H Creatinine 3.22 H Estimated GFR 20 L POC Glucose 181 H 188 H Random Glucose 180 H Calcium 7.3 L* Prot Corrected Calcium 8.7 Phosphorus Magnesium Total Bilirubin AST ALT Alkaline Phosphatase Total Protein 4.7 L Albumin 02/08/18 02/08/18 02/08/18 04:30 07:42 08:50 Sodium 142 142 Potassium 3.4 L 3.7 Chloride 102 103 Carbon Dioxide 23.8 21.0 Anion Gap 16 H 18 H BUN 52 H 57 H Creatinine 3.50 H 3.77 H Estimated GFR 18 L 17 L POC Glucose 194 H Random Glucose 189 H 191 H Calcium 7.4 L* 7.4 L* Prot Corrected Calcium 8.7 8.7 Phosphorus Magnesium Total Bilirubin 6.2 H 6.1 H AST 114 H 106 H ALT 49 48 Alkaline Phosphatase 121 H 118 H Total Protein 4.8 L 4.8 L Albumin 1.6 L 1.6 L 02/08/18 11:34 Sodium Potassium Chloride Carbon Dioxide Anion Gap BUN Creatinine Estimated GFR POC Glucose 183 H Random Glucose Calcium Prot Corrected Calcium Phosphorus Magnesium Total Bilirubin AST ALT Alkaline Phosphatase Total Protein Albumin Imaging: ITS Impressions Chest X-Ray 02/07/18 00:00 CONCLUSION: 1. Lines and tubes stable. 2. Interval development of left lower lung consolidation. Physical Exam: GENERAL: Sedated, on the vent, NAD SKIN: Cool and dry, no generalized rash HEAD: Atraumatic. Normocephalic. No temporal or scalp tenderness. EYES: Pupils equal round and reactive. Scleral icterus. No injection or drainage. No petechia ENT: Orally intubated NECK: Trachea midline. Supple, nontender, no meningeal signs. CARDIOVASCULAR: HS audible. RESPIRATORY: AE decreased in the bases R>L. Right side CT with serous fluid noted GASTROINTESTINAL: Abdomen distended, some grimacing during palpation MUSCULOSKELETAL: Extremities without clubbing, cyanosis. Mild pedal edema. Both feet are cool to touch. Has a large hemorrhagic bullous lesion on L palm NEUROLOGICAL: Sedated Psych could not be assessed IV line sites ok. Assessment and Plan - Plan MSSA sepsis, Septic Shock, on pressors Right side Pulm Empyema, MSSA Rule out endocarditis. Polymicrobial PNA ( PSAE, second GNR, Staph aureus) also likely aspiration in setting of alcoholism Cardiomegaly: ? alcohol related vs CAD. MSSA in urine. Acute resp failure on vent Acute oliguric renal failure: prerenal, sepsis. - on CVVHD Acute metabolic encephalopathy: sepsis, metabolic. Leukocytosis Thrombocytopenia: sepsis, no DIC RECOMMENDATION Continue IV Oxacillin for MSSA Continue IV Cefepime for PSAE and E coli Continue Flagyl for aspiration PNA Continue Teflaro IV Repeat BC to document clearing Dw Catheter holiday. EMILY if goals remain aggressive. Cholecystostomy per GI although I suspect ongoing sepsis more from MSSA sepsis. If lines removed please send tips for culture. Source control is essential. Follow cultures Monitor progress D/W RN
--- NOTE | 2018-02-08 16:35 | XR ---
EXAM DATE: 02/08/2018 4:17 PM EDT AGE/SEX: 57 years / Male INDICATIONS: Status post vas-cath insertion. CLINICAL DATA: This is the patient's subsequent encounter. Patient reports that signs and symptoms h ave been present for 1 day and indicates a pain score of Nonresponsive. MEDICAL/SURGICAL HISTORY: . Diabetes mellitus type II. Hypertension. Non-responsive. COMPARISON: [facility] – [place]ST 1V SINGLE AP, 02/07/2018. . FINDINGS: A single AP view of the chest demonstrates bibasilar and right upper lobe airspace disease. Cardiomeg hanny. Endotracheal tube and nasogastric tube are stable in position. Right jugular vascular catheter w ith tip in the right atrium. No pneumothorax. Right-sided chest tube stable in position. The cardiome diastinal contours are unremarkable. Osseous structures are intact. Left humeral prosthesis. CONCLUSION: Stable chest. Vascular catheter in good position. Electronically signed by: Joshua Crocker MD 02/08/2018 4:33 PM EDT
--- NOTE | 2018-02-08 17:02 | MG ---
cc: Darshan Pham MD, PhD DATE OF STUDY: 02/08/2018 TECHNIQUE: This is a 17-channel EEG. DESCRIPTION: The background rhythm is generalized slow in the delta frequency of 3-4 Hz, amplitude about 10-20 microvolts. Rare muscle artifact identified. There were no lateralizing features seen. There were no epileptiform discharges present. Photic results in a poor driving response. Occasional intermittent sharp activity seen, but this is mainly artifactual. INTERPRETATION: Abnormal study consistent with a diffuse encephalopathy. Darshan Pham MD, PhD LAUREL/DENZEL , 04:48 PM , 05:01 PM
--- NOTE | 2018-02-08 21:38 | P.PN ---
Subjective Interval history: Patient remain on the vent., and off sedation now. Physical Exam Vital signs: Vital Signs 02/07/18 22:00 02/07/18 22:33 02/07/18 23:00 Temperature Pulse Rate 88 89 Respiratory Rate 17 18 18 Blood Pressure 105/58 L 109/59 L Pulse Oximetry 97 97 97 02/08/18 00:00 02/08/18 00:34 02/08/18 01:00 Temperature 99.1 F Pulse Rate 90 90 90 Respiratory Rate 18 20 9 L Blood Pressure 112/56 L 109/59 L Pulse Oximetry 96 97 02/08/18 01:45 02/08/18 02:00 02/08/18 03:00 Temperature Pulse Rate 98 H 95 H Respiratory Rate 18 29 H 18 Blood Pressure 165/95 H 126/59 L Pulse Oximetry 97 100 96 02/08/18 04:00 02/08/18 04:36 02/08/18 05:00 Temperature 98.4 F Pulse Rate 94 H 94 H 94 H Respiratory Rate 18 19 18 Blood Pressure 118/56 L 118/56 L Pulse Oximetry 97 97 97 02/08/18 06:00 02/08/18 07:00 02/08/18 08:00 Temperature 100.1 F H Pulse Rate 95 H 96 H 100 H Respiratory Rate 18 18 18 Blood Pressure 114/56 L 112/56 L 114/59 L Pulse Oximetry 98 98 97 02/08/18 08:47 02/08/18 09:00 02/08/18 10:00 Temperature Pulse Rate 97 H 100 H 97 H Respiratory Rate 18 18 18 Blood Pressure 119/57 L 115/56 L Pulse Oximetry 98 97 97 02/08/18 11:00 02/08/18 12:00 02/08/18 12:14 Temperature 100.3 F H Pulse Rate 96 H 97 H 97 H Respiratory Rate 18 18 18 Blood Pressure 113/59 L 112/55 L Pulse Oximetry 97 97 97 02/08/18 13:00 02/08/18 14:00 02/08/18 14:48 Temperature 99.0 F Pulse Rate 97 H 99 H 93 H Respiratory Rate 18 18 20 Blood Pressure 113/55 L 138/74 129/68 Pulse Oximetry 96 97 02/08/18 15:00 02/08/18 15:51 02/08/18 16:00 Temperature 99.5 F 99.5 F Pulse Rate 93 H 93 H 93 H Respiratory Rate 18 18 18 Blood Pressure 132/71 120/66 137/76 Pulse Oximetry 97 100 97 02/08/18 17:00 02/08/18 17:42 02/08/18 18:00 Temperature Pulse Rate 91 H 94 H 94 H Respiratory Rate 1 L 24 Blood Pressure 118/59 L Pulse Oximetry 98 96 Intake & Output 02/08/18 02/08/18 02/09/18 06:59 18:59 06:59 Intake Total 1020 / 1020 1631 / 1631 Output Total 30 / 30 Balance 995 / 995 1601 / 1601 Weight 103.5 kg Intake: IV 1020 / 1020 1228 / 1228 Neosynephrine Inj 40 MG In D5W 178 / 178 Inj 496 ML @ 40 MCG/MIN 30 mls/ hr IV.CONT TITRATE PRN Rx#: [id number] Pitressin Inj 40 UNIT In D5W 0 / 0 Inj 98 ML @ 0.04 UNITS/MIN 6 mls/hr IV.CONT CONT LEROY Rx#: [id number] fentaNYL 10 mcg/mL Premix Drip 170 / 170 2,500 mcg In 250 ml @ 50 MCG/HR 5 mls/hr IV.CONT TITRATE PRN Rx#:[id number] Cordarone Inj 450 MG In NS Inj 250 / 250 250 / 250 241 ML @ 0.5 MG/MIN 16.66 mls/ hr IV.SIG .Q15H1M LEROY Rx#: [id number] Maxipime Inj 2,000 MG In NS Inj 100 / 100 100 ML @ 200 mls/hr IV.SIG Q24H LEROY Rx#:[id number] Teflaro Inj 600 MG In NS Inj 100 / 100 200 / 200 100 ML @ 100 mls/hr IV.SIG Q8H LEROY Rx#:[id number] Prostaphlin Inj 2 GM In NS Inj 200 / 200 400 / 400 100 ML @ 200 mls/hr IV.SIG Q4H LEROY Rx#:[id number] Flagyl 500 MG Inj 100 ML @ 100 200 / 200 200 / 200 mls/hr IV.SIG Q6H LEROY Rx#: [id number] Tube Feeding 56 / 56 Water Bolus Amount 60 / 60 Intake (Blood Product) Amt 287 / 287 Plt Pheresis B Leukoreduced 287 / 287 Unit [id number] Output: Urine Amount (Catheter) Coude Gastric Drainage Orogastric Tube Chest Tube Drainage 0 / 0 0 / 0 #1 Right Anterior 0 / 0 0 / 0 Other: # Bowel Movements 0 - Constitutional obtunded Comments: Intubated and off sedation. - Routine Neck Exam Present: supple, JVD - Routine Respiratory Exam Present: patient mechanically ventilated, rales, rhonchi, crackles, distant breath sounds, diminished air movement - Routine Cardiovascular Exam Present: S1, S2 - Routine Abdominal Exam Present: soft, normoactive bowel sounds, distended - Routine Neurological Exam Obtunded. - Urinary Catheter Management Coude Cath placed during this visit: yes Reason for continuing: Hourly intake/output Insertion date: 02/02/18 Results - Labs CBC & Chem 7: 02/08/18 08:50 02/08/18 08:50 Laboratory Results - last 24 hr 02/08/18 02/08/18 02/08/18 00:30 04:30 04:30 WBC 10.5 RBC 2.92 L Hgb 8.7 L Hct 25.5 L MCV 87.5 MCH 29.9 MCHC 34.2 RDW 17.1 Plt Count 29 L MPV 10.8 Prelim Diff (Auto) Slide review pending Neut % (Auto) 92.8 H Lymph % (Auto) 4.8 L Cherry % (Auto) 1.9 Eos % (Auto) 0.2 Baso % (Auto) 0.3 Neut # (Auto) 9.8 H Lymph # (Auto) 0.5 L Cherry # (Auto) 0.2 Eos # (Auto) 0.0 Baso # (Auto) 0.0 WBC Differential Manual diff final Seg Neuts % (Manual) 83 H Band Neuts % (Manual) 13 H Lymphocytes % (Manual) 1 L Monocytes % (Manual) 1 Eosinophils % (Manual) Myelocytes % (Man) 2 H Abs Neuts (Manual) 10.3 H Nucleated RBCs/100 WBC 2 H Differential Comment . Toxic Granulation 1+ H Platelet Estimate Low L Platelet Morphology Enlarged H Stomatocytes 1+ H Sodium 143 142 Potassium 3.4 L 3.4 L Chloride 104 102 Carbon Dioxide 25.3 23.8 Anion Gap 14 16 H BUN 49 H 52 H Creatinine 3.22 H 3.50 H Estimated GFR 20 L 18 L POC Glucose Random Glucose 180 H 189 H Calcium 7.3 L* 7.4 L* Prot Corrected Calcium 8.7 8.7 Total Bilirubin 6.2 H AST 114 H ALT 49 Alkaline Phosphatase 121 H Total Protein 4.7 L 4.8 L Albumin 1.6 L Blood Type Blood Type Confirm Blood Type Recheck Bld Prod Order Comment 02/08/18 02/08/18 02/08/18 07:42 08:50 08:50 WBC 9.3 RBC 2.82 L Hgb 8.5 L Hct 25.3 L MCV 89.7 MCH 30.2 MCHC 33.7 RDW 16.9 Plt Count 33 L MPV 9.7 Prelim Diff (Auto) Slide review pending Neut % (Auto) 93.2 H Lymph % (Auto) 4.8 L Cherry % (Auto) 1.1 Eos % (Auto) 0.3 Baso % (Auto) 0.6 Neut # (Auto) 8.7 H Lymph # (Auto) 0.4 L Cherry # (Auto) 0.1 Eos # (Auto) 0.0 Baso # (Auto) 0.1 WBC Differential Manual diff final Seg Neuts % (Manual) 78 H Band Neuts % (Manual) 20 H Lymphocytes % (Manual) 1 L Monocytes % (Manual) Eosinophils % (Manual) 1 Myelocytes % (Man) Abs Neuts (Manual) 9.1 H Nucleated RBCs/100 WBC Differential Comment . Toxic Granulation Platelet Estimate Low L Platelet Morphology Normal Stomatocytes Sodium 142 Potassium 3.7 Chloride 103 Carbon Dioxide 21.0 Anion Gap 18 H BUN 57 H Creatinine 3.77 H Estimated GFR 17 L POC Glucose 194 H Random Glucose 191 H Calcium 7.4 L* Prot Corrected Calcium 8.7 Total Bilirubin 6.1 H AST 106 H ALT 48 Alkaline Phosphatase 118 H Total Protein 4.8 L Albumin 1.6 L Blood Type Blood Type Confirm Blood Type Recheck Bld Prod Order Comment 02/08/18 02/08/18 02/08/18 11:34 13:00 13:09 WBC RBC Hgb Hct MCV MCH MCHC RDW Plt Count MPV Prelim Diff (Auto) Neut % (Auto) Lymph % (Auto) Cherry % (Auto) Eos % (Auto) Baso % (Auto) Neut # (Auto) Lymph # (Auto) Cherry # (Auto) Eos # (Auto) Baso # (Auto) WBC Differential Seg Neuts % (Manual) Band Neuts % (Manual) Lymphocytes % (Manual) Monocytes % (Manual) Eosinophils % (Manual) Myelocytes % (Man) Abs Neuts (Manual) Nucleated RBCs/100 WBC Differential Comment Toxic Granulation Platelet Estimate Platelet Morphology Stomatocytes Sodium Potassium Chloride Carbon Dioxide Anion Gap BUN Creatinine Estimated GFR POC Glucose 183 H Random Glucose Calcium Prot Corrected Calcium Total Bilirubin AST ALT Alkaline Phosphatase Total Protein Albumin Blood Type O Positive Blood Type Confirm O Positive Blood Type Recheck Required Bld Prod Order Comment 02/08/18 02/08/18 16:09 20:53 WBC RBC Hgb Hct MCV MCH MCHC RDW Plt Count MPV Prelim Diff (Auto) Neut % (Auto) Lymph % (Auto) Cherry % (Auto) Eos % (Auto) Baso % (Auto) Neut # (Auto) Lymph # (Auto) Cherry # (Auto) Eos # (Auto) Baso # (Auto) WBC Differential Seg Neuts % (Manual) Band Neuts % (Manual) Lymphocytes % (Manual) Monocytes % (Manual) Eosinophils % (Manual) Myelocytes % (Man) Abs Neuts (Manual) Nucleated RBCs/100 WBC Differential Comment Toxic Granulation Platelet Estimate Platelet Morphology Stomatocytes Sodium Potassium Chloride Carbon Dioxide Anion Gap BUN Creatinine Estimated GFR POC Glucose 186 H 215 H Random Glucose Calcium Prot Corrected Calcium Total Bilirubin AST ALT Alkaline Phosphatase Total Protein Albumin Blood Type Blood Type Confirm Blood Type Recheck Bld Prod Order Comment Microbiology 02/06/18 10:59 Blood - Peripheral Aerobic Blood Culture - Final Staphylococcus aureus 02/06/18 10:59 Blood - Peripheral Anaerobic Blood Culture - Preliminary No growth in 2 days 02/07/18 03:59 Blood - Peripheral Aerobic Blood Culture - Preliminary gram positive cocci 02/07/18 03:59 Blood - Peripheral Anaerobic Blood Culture - Preliminary No growth in 1 day - Imaging Impressions Chest X-Ray 02/08/18 00:00 CONCLUSION: Stable chest. Vascular catheter in good position. Assessment and Plan - Assessment (1) Acute renal failure (ARF) Code(s): N17.9 - Acute kidney failure, unspecified Status: Acute (2) Sepsis Code(s): A41.9 - Sepsis, unspecified organism Status: Acute (3) Respiratory failure Code(s): J96.90 - Respiratory failure, unspecified, unspecified whether with hypoxia or hypercapnia Status: Acute (4) Hypotension Code(s): I95.9 - Hypotension, unspecified Status: Acute - Plan (1) Acute renal failure ICD Codes: N17.9 - Acute kidney failure, unspecified Plan: Patient has no urine output Cr higher CRRT started on 02/04. BP low normal off vasopressor Large pleural effusion was drained He has gram-negative in sputum Ceftaroline/Zerbaxa ID following HD done yesterday. Vascath was removed, and re inserted today will need tomorrow again. Continue antibiotics. D/W the mother at bed side. (2) Sepsis ICD Codes: A41.9 - Sepsis, unspecified organism Plan: ID following (3) Rhabdomyolysis ICD Codes: M62.82 - Rhabdomyolysis Plan: On bicarbonate drip (4) UTI (lower urinary tract infection) ICD Codes: N39.0 - Urinary tract infection, site not specified Plan: Patient has staph infection and ID is following (5) Pneumonia ICD Codes: J18.9 - Pneumonia, unspecified organism Plan: Pleural effusion drained
[2018-02-09] MEDS: Chlorhexidine Gluconate 2% 1 Pack (2 Cloths) TOPICAL SCH (05:26)
[2018-02-09 06:22] LABS: Hematocrit 25.9 % (39.0-51.0); Hemoglobin 8.9 gm/dL (13.0-17.0); Mean Corpuscular HGB Conc 34.1 % (32.0-36.0); Mean Corpuscular Hemoglobin 30.1 pg (27.0-34.0); Mean Corpuscular Volume 88.2 fL (80.0-100.0); Mean Platelet Volume 9.9 fL (7.0-11.0); Platelet Count 39 th/mm3 (150-450); Red Blood Count 2.94 mil/mm3 (4.50-5.90); Red Cell Distribution Width 17.1 % (11.6-17.2); White Blood Count 9.4 th/mm3 (4.0-11.0)
[2018-02-09 06:57] LABS: Alanine Aminotransferase 45 U/L (12-78); Albumin 1.4 g/dL (3.4-5.0); Alkaline Phosphatase 131 U/L (45-117); Anion Gap 16 meq/L (5-15); Aspartate Aminotransferase 86 U/L (15-37); Blood Urea Nitrogen 75 mg/dL (7-18); Calcium 7.5 mg/dL (8.5-10.1); Carbon Dioxide 21.8 meq/L (21.0-32.0); Chloride 105 meq/L (98-107); Glomerular Filtration Rate 12 mL/min (>89); Glucose,Random 209 mg/dL (74-106); Potassium 4.1 meq/L (3.5-5.1); Sodium 143 meq/L (136-145); Total Protein 5.5 g/dL (6.4-8.2)
--- NOTE | 2018-02-09 08:16 | P.PNCC ---
Subjective Subjective Remarks/Hospital Course: 02/05: This is a 57-year-old male with a strong history of EtOH abuse, his family states that he drinks greater than a pint today times at least 25 years. He was found unresponsive at home this afternoon. The last time he was seen normal was 5 days ago. He was brought in by EMS and was severely altered. He was intubated for acute hypoxemia and hypercarbia. He was also in a supraventricular tachycardia with a heart rate greater than 200. In the emergency department he was electrically cardioverted 2 without success, and given 5 mill grams of IV Lopressor which caused severe hypotension, but did not resolve his tachycardia. Immediately upon being notified went down to the emergency department evaluated the patient and transported him up to the intensive care unit. Once in the intensive care unit, I placed arterial and central lines, see separate procedure note for details. I loaded the patient with 150 mg of amiodarone and 2 g magnesium. In addition, the patient has a blood gas with severe metabolic acidosis and a pH less than 7.2. I gave 4 A of sodium bicarbonate as well as 1 g of calcium chloride for severe hypocalcemia. After these interventions, the patient spontaneously converted to a sinus tachycardia. The patient was placed on norepinephrine for persistent hypotension and shock. The emergency department attempted to place a 16 [place] Ennis catheter and was unsuccessful with this. I attempted an additional time to place both an 18 Latvian coud catheter as well as a 24 Latvian three-way catheter, both which were unsuccessful and met significant resistance at approximately 10-12 cm. I consulted urology and discussed the case with Dr. Worley who agrees to Place Ennis catheter tonight for emergent urine output monitoring while in shock. The patient remains altered no additional information is available from patient. ROS is unobtainable. 02/03 Patient is intubated on Levoped 5 mics, Amio and bicarb drips. 16Fr catheter was placed by Urology. 02/04 Patient remains intubated and sedated with Diprivan. Off Levophed on Neosyn 60mics. Right sided pig tail catheter placed yesterday with removal 1100ml cloudy fluid fluid analysis c/w empyema. Renal function declining with Cr: 5.87 and UOP 120ml in 12 hrs. Tmax 102.2 02/05: remains intubated and critically ill. on CVVHD. per RN, net -300/hr on CVVHD. off vasopressors this AM. 02/06: Remains sedated, orally intubated on mechanical ventilation. CRRT clotted off last night. Nephrology planning HD 02/07 Patient remains intubated and sedated with Fentanyl infusion. Off Neosyn remains on Vasopressin and Amio drip. T;102 last night. 02/08 No events overnight. Intubated and on Fentanyl infusion for sedation. Afebrile. Off all pressors. s/p HD yesterday. On Amio drip. 02/09 Patient remains sedated and intubated. For HD today. On Amio drip, T:101.3 last night. Objective Vital Signs / I&O: Vital Signs 02/08/18 08:47 02/08/18 09:00 02/08/18 10:00 Temperature Pulse Rate 97 H 100 H 97 H Respiratory Rate 18 18 18 Blood Pressure 119/57 L 115/56 L Pulse Oximetry 98 97 97 02/08/18 11:00 02/08/18 12:00 02/08/18 12:14 Temperature 100.3 F H Pulse Rate 96 H 97 H 97 H Respiratory Rate 18 18 18 Blood Pressure 113/59 L 112/55 L Pulse Oximetry 97 97 97 02/08/18 13:00 02/08/18 14:00 02/08/18 14:48 Temperature 99.0 F Pulse Rate 97 H 99 H 93 H Respiratory Rate 18 18 20 Blood Pressure 113/55 L 138/74 129/68 Pulse Oximetry 96 97 02/08/18 15:00 02/08/18 15:51 02/08/18 16:00 Temperature 99.5 F 99.5 F Pulse Rate 93 H 93 H 93 H Respiratory Rate 18 18 18 Blood Pressure 132/71 120/66 137/76 Pulse Oximetry 97 100 97 02/08/18 17:00 02/08/18 17:42 02/08/18 18:00 Temperature Pulse Rate 91 H 94 H 96 H Respiratory Rate 1 L 24 0 L Blood Pressure 118/59 L 119/59 L Pulse Oximetry 98 96 97 02/08/18 19:00 02/08/18 20:00 02/08/18 21:00 Temperature 101.3 F H Pulse Rate 97 H 101 H 101 H Respiratory Rate 18 18 18 Blood Pressure 114/57 L 115/60 118/58 L Pulse Oximetry 97 97 97 02/08/18 21:45 02/08/18 22:00 02/08/18 23:00 Temperature Pulse Rate 160 H 103 H Respiratory Rate 18 18 18 Blood Pressure 111/60 114/57 L Pulse Oximetry 96 97 97 02/09/18 00:00 02/09/18 01:00 02/09/18 02:00 Temperature 100.6 F H Pulse Rate 101 H 97 H 95 H Respiratory Rate 18 18 18 Blood Pressure 111/55 L 113/56 L 116/57 L Pulse Oximetry 97 96 96 02/09/18 03:00 02/09/18 04:00 02/09/18 05:00 Temperature 100.3 F H Pulse Rate 96 H 97 H 165 H Respiratory Rate 18 18 18 Blood Pressure 110/56 L 112/56 L 117/74 Pulse Oximetry 97 97 94 L 02/09/18 06:00 02/09/18 06:02 Temperature Pulse Rate 155 H 156 H Respiratory Rate 18 18 Blood Pressure 106/59 L Pulse Oximetry 96 96 Intake & Output 02/08/18 02/09/18 02/09/18 18:59 06:59 18:59 Intake Total 1631 / 1631 743 / 743 Output Total 30 / 30 28 / 28 Balance 1601 / 1601 715 / 715 Weight 106 kg Intake: IV 1228 / 1228 500 / 500 Neosynephrine Inj 40 MG In D5W 178 / 178 Inj 496 ML @ 40 MCG/MIN 30 mls/ hr IV.CONT TITRATE PRN Rx#: [id number] Pitressin Inj 40 UNIT In D5W 0 / 0 Inj 98 ML @ 0.04 UNITS/MIN 6 mls/hr IV.CONT CONT LEROY Rx#: [id number] Cordarone Inj 450 MG In NS Inj 250 / 250 241 ML @ 0.5 MG/MIN 16.66 mls/ hr IV.SIG .Q15H1M LEROY Rx#: [id number] Teflaro Inj 600 MG In NS Inj 200 / 200 100 / 100 100 ML @ 100 mls/hr IV.SIG Q8H LEROY Rx#:[id number] Prostaphlin Inj 2 GM In NS Inj 400 / 400 200 / 200 100 ML @ 200 mls/hr IV.SIG Q4H LEROY Rx#:[id number] Flagyl 500 MG Inj 100 ML @ 100 200 / 200 200 / 200 mls/hr IV.SIG Q6H LEROY Rx#: [id number] Tube Feeding 56 / 56 243 / 243 Water Bolus Amount 60 / 60 Intake (Blood Product) Amt 287 / 287 Plt Pheresis B Leukoreduced 287 / 287 Unit [id number] Output: Urine Amount (Catheter) Coude Chest Tube Drainage 0 / 0 #1 Right Anterior 0 / 0 Result Diagrams: 02/09/18 10:08 02/09/18 10:08 Objective Remarks: GENERAL: Patient is 57 yo intubated and sedated. SKIN: Warm and dry. HEAD: Normocephalic. EYES: No scleral icterus. No injection or drainage. NECK: Supple, trachea midline. No JVD. CARDIOVASCULAR: Regular rate and rhythm. sinus. RESPIRATORY: Breath sounds equal bilaterally. No accessory muscle use. GASTROINTESTINAL: Abdomen soft, non-tender, nondistended. MUSCULOSKELETAL: No cyanosis, or edema. Neuro: Intubated, sedated Assessment and Plan - Assessment and Plan Plan: A/P Plan by systems: Neurologic: Acute metabolic encephalopathy etoh abuse Likely secondary to EtOH abuse Monitor neuro status, on Thiamine/MVI/ On Fentanyl infusion for sedation. Daily sedation vacation CT brain : No acute process on 02/02 EEG: Diffuse encephalopathy Respiratory: Acute hypoxic and hypercarbic respiratory failure Right sided empyema Continue with vent support keep sats >92% Bronchodilates, ICU vent bundle, SBT daily as marquez. s/p right pigtail catheter placement 02/03 Pleural fluid analysis c/w empyema, monitor CT drainage. Cardiovascular: Mixed hypovolemic and septic shock Atrial fibrillation with rapid ventricular response Monitor HR and BP keep MAP>65mmHg Status post 5 L crystalloid resuscitation in the emergency department Lactic acid is trending down Echo showed EF 60-65%, no RWMA Discussed with Dr. Delcid plan for EMILY on Wednesday. Renal: Acute kidney injury-severe Acute rhabdomyolysis Obstructive uropathy BPH Monitor renal function, I/O's, avoid nephrotoxins Urology is following- s/p 16Fr Ennis catheter placement Renal is following- Dr. Dinh. For HD today FEN/GI: Elevated LFT's with hyperbilirubinemia Acute protein calorie malnutrition: S Start tube feeds ( Nepro) with goal rate 40ml/hr Ammonia level <10 on 02/02 Hepatitis profile: Non reactive, Heme/ID: Coagulopathy, probably secondary to end-stage liver disease Thrombocytopenia, secondary to shock Leukopenia, secondary septic shock On Teflaro, Cefepime, Oxacillin and Flagyl per ID Monitor for signs of infections ( Fever, WBC) follow up on cultures on BC from 02/08 02/07 BC GPC , staph bacteremia 02/02 Sputum cx: GNR 02/02 Urine cx: Staph Aureus 02/03 BC: GPC 08/12 bottles 02/03 Fluid cx: NGTD HIV ab: non reactive Monitor CBC, coags, s/p transfusion 1u PLT pheresis 02/08 Endocrine: Hyperglycemia of critical illness -- SSI, TSH 1.6 Prophylaxis: GI Prophylaxis Protonix IV DVT Prophylaxis -- SCDs - Subcu heparin on hold for thrombocytopenia Palliative care is following Code status: Alternative code Lines: New Right IJ vascath placed 02/08. Peripheral IV's Condition critical Time spent on critical care excluding procedures 30 minutes
[2018-02-09] MEDS: Albumin Human 25% Inj 100 ML IV.SIG SCH ×2 (08:48→09:07)
--- NOTE | 2018-02-09 10:55 | P.PNPAL ---
Reason for Visit Reason for visit: a. To assist with evaluation and management of symptoms including: pain, anxiety b. To assist medical decision maker(s) with: better understanding of current medical conditions; weighing benefits/burdens of medical treatment options; making medical treatment decisions. Subjective Subjective/Interval History: Pt had tMax of 101.4 this morning. Leukocytosis trending down. Cr up at 4.90. Again getting dialysis. Liver enzymes trending down. Blood cultures from 02/07 shows S. aureus. other blood culture form 02/08 and cath tip culture pending. Chest X ray form 11/09 show stable chest. EEG show diffuse encephalopathy. ID noted pt would need EMILY. Pt continue Oxacillin for MSSA, Cefepime for E. coli, Flagyl for PNA and Tflaro. Patient is off pressors. Family/Friend Interactions: Met with pt's son, Ronald. Pt's ex , pt's sister in law. Geovani is health care proxy. Spend extensive time review pt's condition prior to hospitalization, course of hospitalization. revew challenges. reviewed cod status again. peg/ trach. Spoke about EMILY. Goals of care- okay with EMILY. = continue aggressive care short of cpr/compression/ shock/acls. = If pt could not be weaned of venitilator and required peg or trach, family state pt would not want to proceed with peg or trach, and at that time they are amenable to transition to hospice care and compassionate withdrawl. Objective Vital Signs: Vital Signs 02/08/18 11:00 02/08/18 12:00 02/08/18 12:14 Temperature 100.3 F H Pulse Rate 96 H 97 H 97 H Respiratory Rate 18 18 18 Blood Pressure 113/59 L 112/55 L Pulse Oximetry 97 97 97 02/08/18 13:00 02/08/18 14:00 02/08/18 14:48 Temperature 99.0 F Pulse Rate 97 H 99 H 93 H Respiratory Rate 18 18 20 Blood Pressure 113/55 L 138/74 129/68 Pulse Oximetry 96 97 02/08/18 15:00 02/08/18 15:51 02/08/18 16:00 Temperature 99.5 F 99.5 F Pulse Rate 93 H 93 H 93 H Respiratory Rate 18 18 18 Blood Pressure 132/71 120/66 137/76 Pulse Oximetry 97 100 97 02/08/18 17:00 02/08/18 17:42 02/08/18 18:00 Temperature Pulse Rate 91 H 94 H 96 H Respiratory Rate 1 L 24 0 L Blood Pressure 118/59 L 119/59 L Pulse Oximetry 98 96 97 02/08/18 19:00 02/08/18 20:00 02/08/18 21:00 Temperature 101.3 F H Pulse Rate 97 H 101 H 101 H Respiratory Rate 18 18 18 Blood Pressure 114/57 L 115/60 118/58 L Pulse Oximetry 97 97 97 02/08/18 21:45 02/08/18 22:00 02/08/18 23:00 Temperature Pulse Rate 160 H 103 H Respiratory Rate 18 18 18 Blood Pressure 111/60 114/57 L Pulse Oximetry 96 97 97 02/09/18 00:00 02/09/18 01:00 02/09/18 02:00 Temperature 100.6 F H Pulse Rate 101 H 97 H 95 H Respiratory Rate 18 18 18 Blood Pressure 111/55 L 113/56 L 116/57 L Pulse Oximetry 97 96 96 02/09/18 03:00 02/09/18 04:00 02/09/18 05:00 Temperature 100.3 F H Pulse Rate 96 H 97 H 165 H Respiratory Rate 18 18 18 Blood Pressure 110/56 L 112/56 L 117/74 Pulse Oximetry 97 97 94 L 02/09/18 06:00 02/09/18 06:02 02/09/18 08:00 Temperature 101.4 F H Pulse Rate 155 H 156 H 155 H Respiratory Rate 18 18 Blood Pressure 106/59 L 109/63 Pulse Oximetry 96 96 02/09/18 08:57 02/09/18 10:19 Temperature Pulse Rate 161 H Respiratory Rate 20 18 Blood Pressure Pulse Oximetry 98 98 Intake & Output 02/08/18 02/09/18 02/09/18 18:59 06:59 18:59 Intake Total 1631 / 1631 743 / 743 200 / 200 Output Total 30 / 30 28 / 28 Balance 1601 / 1601 715 / 715 200 / 200 Weight 106 kg Intake: IV 1228 / 1228 500 / 500 200 / 200 Neosynephrine Inj 40 MG In D5W 178 / 178 Inj 496 ML @ 40 MCG/MIN 30 mls/ hr IV.CONT TITRATE PRN Rx#: [id number] Pitressin Inj 40 UNIT In D5W 0 / 0 Inj 98 ML @ 0.04 UNITS/MIN 6 mls/hr IV.CONT CONT LEROY Rx#: [id number] Flexbumin 25% Inj 100 ML @ 60 200 / 200 mls/hr IV.SIG WITH DIALYSIS LEROY Rx#:[id number] Cordarone Inj 450 MG In NS Inj 250 / 250 241 ML @ 0.5 MG/MIN 16.66 mls/ hr IV.SIG .Q15H1M LEROY Rx#: [id number] Teflaro Inj 600 MG In NS Inj 200 / 200 100 / 100 100 ML @ 100 mls/hr IV.SIG Q8H LEROY Rx#:[id number] Prostaphlin Inj 2 GM In NS Inj 400 / 400 200 / 200 100 ML @ 200 mls/hr IV.SIG Q4H LEROY Rx#:[id number] Flagyl 500 MG Inj 100 ML @ 100 200 / 200 200 / 200 mls/hr IV.SIG Q6H LEROY Rx#: [id number] Tube Feeding / 243 / 243 Water Bolus Amount 60 / 60 Intake (Blood Product) Amt 287 / 287 Plt Pheresis B Leukoreduced 287 / 287 Unit [id number] Output: Urine Amount (Catheter) Coude Chest Tube Drainage 0 / 0 #1 Right Anterior 0 / 0 Physical Exam: CONSTITUTIONAL/GENERAL: This is a critically ill 57 year old male, intubated and sedated TUBES/LINES/DRAINS: pigtail cathether, quezada, ET tube, central line. SKIN:jaundice HEAD: Atraumatic. Normocephalic. EYES: Pupils equal and round and reactive. Icteric scelera ENT: Hearing grossly normal. Nose without bleeding or purulent drainage. Throat ET tube present NECK: Trachea midline. Supple, nontender. No palpable thyroid enlargement or nodularity. CARDIOVASCULAR: Regular rate and rhythm without murmurs, gallops, or rubs. No JVD. RESPIRATORY/CHEST:Rhonchi bilaterally. GASTROINTESTINAL: Abdomen distended. soft. BS present. GENITOURINARY: Without palpable bladder distension. Quezada catheter in place. MUSCULOSKELETAL: Extremities without clubbing, cyanosis. 2+ edema LYMPHATICS: No palpable cervical or supraclavicular adenopathy. NEUROLOGICAL: Intubated sedated PSYCHIATRIC: unable to elicit Diagnostic Tests Laboratory: Laboratory Results - last 72 hr 02/06/18 02/06/18 02/06/18 08:00 12:50 16:23 WBC RBC Hgb Hct MCV MCH MCHC RDW Plt Count MPV Prelim Diff (Auto) Neut % (Auto) Lymph % (Auto) [place] % (Auto) Eos % (Auto) Baso % (Auto) Neut # (Auto) Lymph # (Auto) [place] # (Auto) Eos # (Auto) Baso # (Auto) WBC Differential Seg Neuts % (Manual) Band Neuts % (Manual) Lymphocytes % (Manual) Monocytes % (Manual) Eosinophils % (Manual) Myelocytes % (Man) Abs Neuts (Manual) Nucleated RBCs/100 WBC Differential Comment Toxic Granulation Platelet Estimate Platelet Morphology Stomatocytes PT INR APTT Fibrinogen Sodium 138 Potassium 3.4 L Chloride 99 D Carbon Dioxide 20.5 L Anion Gap 19 H BUN 60 H Creatinine 3.34 H Estimated GFR 19 L POC Glucose 171 H Random Glucose 216 H Calcium 5.2 L* D Prot Corrected Calcium 7.5 L 6.7 L* D Phosphorus Magnesium Total Bilirubin AST ALT Alkaline Phosphatase Total Protein 4.4 L 3.6 L D Albumin Blood Type Blood Type Confirm Blood Type Recheck Bld Prod Order Comment 02/06/18 02/06/18 02/06/18 18:06 18:06 20:54 WBC RBC Hgb Hct MCV MCH MCHC RDW Plt Count MPV Prelim Diff (Auto) Neut % (Auto) Lymph % (Auto) [place] % (Auto) Eos % (Auto) Baso % (Auto) Neut # (Auto) Lymph # (Auto) [place] # (Auto) Eos # (Auto) Baso # (Auto) WBC Differential Seg Neuts % (Manual) Band Neuts % (Manual) Lymphocytes % (Manual) Monocytes % (Manual) Eosinophils % (Manual) Myelocytes % (Man) Abs Neuts (Manual) Nucleated RBCs/100 WBC Differential Comment Toxic Granulation Platelet Estimate Platelet Morphology Stomatocytes PT INR APTT Fibrinogen Sodium 138 Potassium 3.7 Chloride 98 Carbon Dioxide 28.5 Anion Gap 12 BUN 47 H Creatinine 2.99 H Estimated GFR 22 L POC Glucose 204 H Random Glucose 206 H Calcium 7.0 L* D Prot Corrected Calcium 8.5 D Phosphorus 2.9 D Magnesium 2.1 Total Bilirubin AST ALT Alkaline Phosphatase Total Protein 4.4 L D Albumin Blood Type Blood Type Confirm Blood Type Recheck Bld Prod Order Comment 02/06/18 02/07/18 02/07/18 21:35 05:44 05:44 WBC 15.0 H RBC 3.42 L Hgb 10.2 L Hct 30.0 L MCV 87.9 MCH 29.8 MCHC 33.9 RDW 17.1 Plt Count 32 L D MPV 11.1 H Prelim Diff (Auto) Neut % (Auto) Lymph % (Auto) [place] % (Auto) Eos % (Auto) Baso % (Auto) Neut # (Auto) Lymph # (Auto) [place] # (Auto) Eos # (Auto) Baso # (Auto) WBC Differential Seg Neuts % (Manual) Band Neuts % (Manual) Lymphocytes % (Manual) Monocytes % (Manual) Eosinophils % (Manual) Myelocytes % (Man) Abs Neuts (Manual) Nucleated RBCs/100 WBC Differential Comment Toxic Granulation Platelet Estimate Platelet Morphology Stomatocytes PT 11.1 INR 1.1 APTT 32.4 H Fibrinogen 452 H Sodium 139 Potassium 3.8 Chloride 98 Carbon Dioxide 29.0 Anion Gap 12 BUN 48 H Creatinine 3.31 H Estimated GFR 19 L POC Glucose Random Glucose 212 H Calcium 6.8 L* Prot Corrected Calcium 8.2 L Phosphorus Magnesium Total Bilirubin AST ALT Alkaline Phosphatase Total Protein 4.4 L Albumin Blood Type Blood Type Confirm Blood Type Recheck Bld Prod Order Comment 02/07/18 02/07/18 02/07/18 05:44 08:30 08:30 WBC 12.2 H RBC 3.01 L Hgb 8.8 L Hct 26.4 L MCV 87.9 MCH 29.4 MCHC 33.4 RDW 16.9 Plt Count 25 L MPV 10.0 Prelim Diff (Auto) Slide review pending Neut % (Auto) 91.1 H Lymph % (Auto) 5.5 L [place] % (Auto) 1.1 Eos % (Auto) 1.9 Baso % (Auto) 0.4 Neut # (Auto) 11.1 H Lymph # (Auto) 0.7 L [place] # (Auto) 0.1 Eos # (Auto) 0.2 Baso # (Auto) 0.1 WBC Differential Manual diff final Seg Neuts % (Manual) 88 H Band Neuts % (Manual) 10 H Lymphocytes % (Manual) Monocytes % (Manual) 1 Eosinophils % (Manual) Myelocytes % (Man) 1 H Abs Neuts (Manual) 12.1 H Nucleated RBCs/100 WBC 1 H Differential Comment . Toxic Granulation 1+ H Platelet Estimate Low L Platelet Morphology Normal Stomatocytes PT INR APTT Fibrinogen Sodium 137 139 Potassium 3.8 3.9 Chloride 97 L 99 Carbon Dioxide 23.7 24.9 Anion Gap 16 H 15 BUN 59 H 52 H Creatinine 3.64 H 3.45 H Estimated GFR 17 L 19 L POC Glucose Random Glucose 248 H 220 H Calcium 7.8 L D 7.4 L* Prot Corrected Calcium 8.8 D Phosphorus 5.4 H D Magnesium 2.2 Total Bilirubin 4.6 H 4.3 H AST 229 H 198 H ALT 76 70 Alkaline Phosphatase 164 H 159 H Total Protein 4.3 L 4.7 L Albumin 0.9 L 1.5 L D Blood Type Blood Type Confirm Blood Type Recheck Bld Prod Order Comment 02/07/18 02/07/18 02/07/18 11:51 17:14 21:25 WBC RBC Hgb Hct MCV MCH MCHC RDW Plt Count MPV Prelim Diff (Auto) Neut % (Auto) Lymph % (Auto) [place] % (Auto) Eos % (Auto) Baso % (Auto) Neut # (Auto) Lymph # (Auto) [place] # (Auto) Eos # (Auto) Baso # (Auto) WBC Differential Seg Neuts % (Manual) Band Neuts % (Manual) Lymphocytes % (Manual) Monocytes % (Manual) Eosinophils % (Manual) Myelocytes % (Man) Abs Neuts (Manual) Nucleated RBCs/100 WBC Differential Comment Toxic Granulation Platelet Estimate Platelet Morphology Stomatocytes PT INR APTT Fibrinogen Sodium Potassium Chloride Carbon Dioxide Anion Gap BUN Creatinine Estimated GFR POC Glucose 169 H 181 H 188 H Random Glucose Calcium Prot Corrected Calcium Phosphorus Magnesium Total Bilirubin AST ALT Alkaline Phosphatase Total Protein Albumin Blood Type Blood Type Confirm Blood Type Recheck Bld Prod Order Comment 02/08/18 02/08/18 02/08/18 00:30 04:30 04:30 WBC 10.5 RBC 2.92 L Hgb 8.7 L Hct 25.5 L MCV 87.5 MCH 29.9 MCHC 34.2 RDW 17.1 Plt Count 29 L MPV 10.8 Prelim Diff (Auto) Slide review pending Neut % (Auto) 92.8 H Lymph % (Auto) 4.8 L [place] % (Auto) 1.9 Eos % (Auto) 0.2 Baso % (Auto) 0.3 Neut # (Auto) 9.8 H Lymph # (Auto) 0.5 L [place] # (Auto) 0.2 Eos # (Auto) 0.0 Baso # (Auto) 0.0 WBC Differential Manual diff final Seg Neuts % (Manual) 83 H Band Neuts % (Manual) 13 H Lymphocytes % (Manual) 1 L Monocytes % (Manual) 1 Eosinophils % (Manual) Myelocytes % (Man) 2 H Abs Neuts (Manual) 10.3 H Nucleated RBCs/100 WBC 2 H Differential Comment . Toxic Granulation 1+ H Platelet Estimate Low L Platelet Morphology Enlarged H Stomatocytes 1+ H PT INR APTT Fibrinogen Sodium 143 142 Potassium 3.4 L 3.4 L Chloride 104 102 Carbon Dioxide 25.3 23.8 Anion Gap 14 16 H BUN 49 H 52 H Creatinine 3.22 H 3.50 H Estimated GFR 20 L 18 L POC Glucose Random Glucose 180 H 189 H Calcium 7.3 L* 7.4 L* Prot Corrected Calcium 8.7 8.7 Phosphorus Magnesium Total Bilirubin 6.2 H AST 114 H ALT 49 Alkaline Phosphatase 121 H Total Protein 4.7 L 4.8 L Albumin 1.6 L Blood Type Blood Type Confirm Blood Type Recheck Bld Prod Order Comment 02/08/18 02/08/18 02/08/18 07:42 08:50 08:50 WBC 9.3 RBC 2.82 L Hgb 8.5 L Hct 25.3 L MCV 89.7 MCH 30.2 MCHC 33.7 RDW 16.9 Plt Count 33 L MPV 9.7 Prelim Diff (Auto) Slide review pending Neut % (Auto) 93.2 H Lymph % (Auto) 4.8 L [place] % (Auto) 1.1 Eos % (Auto) 0.3 Baso % (Auto) 0.6 Neut # (Auto) 8.7 H Lymph # (Auto) 0.4 L [place] # (Auto) 0.1 Eos # (Auto) 0.0 Baso # (Auto) 0.1 WBC Differential Manual diff final Seg Neuts % (Manual) 78 H Band Neuts % (Manual) 20 H Lymphocytes % (Manual) 1 L Monocytes % (Manual) Eosinophils % (Manual) 1 Myelocytes % (Man) Abs Neuts (Manual) 9.1 H Nucleated RBCs/100 WBC Differential Comment . Toxic Granulation Platelet Estimate Low L Platelet Morphology Normal Stomatocytes PT INR APTT Fibrinogen Sodium 142 Potassium 3.7 Chloride 103 Carbon Dioxide 21.0 Anion Gap 18 H BUN 57 H Creatinine 3.77 H Estimated GFR 17 L POC Glucose 194 H Random Glucose 191 H Calcium 7.4 L* Prot Corrected Calcium 8.7 Phosphorus Magnesium Total Bilirubin 6.1 H AST 106 H ALT 48 Alkaline Phosphatase 118 H Total Protein 4.8 L Albumin 1.6 L Blood Type Blood Type Confirm Blood Type Recheck Bld Prod Order Comment 02/08/18 02/08/18 02/08/18 11:34 13:00 13:09 WBC RBC Hgb Hct MCV MCH MCHC RDW Plt Count MPV Prelim Diff (Auto) Neut % (Auto) Lymph % (Auto) [place] % (Auto) Eos % (Auto) Baso % (Auto) Neut # (Auto) Lymph # (Auto) [place] # (Auto) Eos # (Auto) Baso # (Auto) WBC Differential Seg Neuts % (Manual) Band Neuts % (Manual) Lymphocytes % (Manual) Monocytes % (Manual) Eosinophils % (Manual) Myelocytes % (Man) Abs Neuts (Manual) Nucleated RBCs/100 WBC Differential Comment Toxic Granulation Platelet Estimate Platelet Morphology Stomatocytes PT INR APTT Fibrinogen Sodium Potassium Chloride Carbon Dioxide Anion Gap BUN Creatinine Estimated GFR POC Glucose 183 H Random Glucose Calcium Prot Corrected Calcium Phosphorus Magnesium Total Bilirubin AST ALT Alkaline Phosphatase Total Protein Albumin Blood Type O Positive Blood Type Confirm O Positive Blood Type Recheck Required Bld Prod Order Comment 02/08/18 02/08/18 02/09/18 16:09 20:53 05:14 WBC 9.4 RBC 2.94 L Hgb 8.9 L Hct 25.9 L MCV 88.2 MCH 30.1 MCHC 34.1 RDW 17.1 Plt Count 39 L MPV 9.9 Prelim Diff (Auto) Neut % (Auto) Lymph % (Auto) [place] % (Auto) Eos % (Auto) Baso % (Auto) Neut # (Auto) Lymph # (Auto) [place] # (Auto) Eos # (Auto) Baso # (Auto) WBC Differential Seg Neuts % (Manual) Band Neuts % (Manual) Lymphocytes % (Manual) Monocytes % (Manual) Eosinophils % (Manual) Myelocytes % (Man) Abs Neuts (Manual) Nucleated RBCs/100 WBC Differential Comment Toxic Granulation Platelet Estimate Platelet Morphology Stomatocytes PT INR APTT Fibrinogen Sodium Potassium Chloride Carbon Dioxide Anion Gap BUN Creatinine Estimated GFR POC Glucose 186 H 215 H Random Glucose Calcium Prot Corrected Calcium Phosphorus Magnesium Total Bilirubin AST ALT Alkaline Phosphatase Total Protein Albumin Blood Type Blood Type Confirm Blood Type Recheck Bld Prod Order Comment 02/09/18 02/09/18 05:14 08:08 WBC RBC Hgb Hct MCV MCH MCHC RDW Plt Count MPV Prelim Diff (Auto) Neut % (Auto) Lymph % (Auto) [place] % (Auto) Eos % (Auto) Baso % (Auto) Neut # (Auto) Lymph # (Auto) [place] # (Auto) Eos # (Auto) Baso # (Auto) WBC Differential Seg Neuts % (Manual) Band Neuts % (Manual) Lymphocytes % (Manual) Monocytes % (Manual) Eosinophils % (Manual) Myelocytes % (Man) Abs Neuts (Manual) Nucleated RBCs/100 WBC Differential Comment Toxic Granulation Platelet Estimate Platelet Morphology Stomatocytes PT INR APTT Fibrinogen Sodium 143 Potassium 4.1 Chloride 105 Carbon Dioxide 21.8 Anion Gap 16 H BUN 75 H Creatinine 4.90 H Estimated GFR 12 L POC Glucose 256 H Random Glucose 209 H Calcium 7.5 L Prot Corrected Calcium Phosphorus Magnesium Total Bilirubin 7.4 H AST 86 H ALT 45 Alkaline Phosphatase 131 H Total Protein 5.5 L D Albumin 1.4 L Blood Type Blood Type Confirm Blood Type Recheck Bld Prod Order Comment Result Diagrams: 02/09/18 10:08 02/09/18 10:08 Microbiology: Microbiology 02/07/18 03:59 Aerobic Blood Culture - Preliminary Blood - Peripheral Staphylococcus aureus Anaerobic Blood Culture - Preliminary No growth in 1 day 02/06/18 10:59 Aerobic Blood Culture - Final Blood - Peripheral Staphylococcus aureus Anaerobic Blood Culture - Preliminary No growth in 2 days Assessment and Plan - Disease Oriented Problem List (1) Acute renal failure (ARF) (2) Sepsis (3) Respiratory failure (4) Hypotension (5) Cholelithiasis Pertinent Non-Medical Issues: Psychosocial: Veteram. disablilty (back pain) and x 3. Have one son Ronald Forrester from 2nd marriage. Spiritual: Legal:no known advacnce directive per bother. Ethical issues impacting care: Important Contacts: (Son/ health care proxy) [phone] (brother)Chris Forrester [phone] Prognosis: 57 year old hx of etoh abuse, came in with severe sepsis, tachycardia, respiratory failure. Pt continue to be in sepsis with pressor support, mechanically ventilated, on dialysis, encephalopathic, hepatic shock. Prognosis is guarded. Code Status: Alternative Code (no cpr/acls/shock) Plan: == capacity- does not have capacity to make medical decision. Critically ill, encephalopathic, multi-organ failure. I do not anticipate return to have capacity unless pt becomes non critical. There is a big potential that this may not happen. == health care decision maker: x 3, and x 3. Son from 2nd marriage Ronald Forrester is medical decision maker == code- Alternative Code: No shock/acls/cpr. Okay with pressors and continue with intubation. I spoke with pt's son, sister in law, and ex . Pt's son is health care proxy. = Goals of care- okay with EMILY. = continue aggressive care short of cpr/compression/ shock/acls. = If pt could not be weaned of venitilator and required peg or trach, family state pt would not want to proceed with peg or trach, and at that time they would consider/ and transition to hospice care and compassionate withdrawl. symptom: pain- tachycardia, chronic back pain, found on the floor, hospitalize debility- fentanyl protocol placed anxiety- associated with dyspnea and discomfort. -fentanyl availabe for == Palliative care will follow to make recommendation for symptom managment, and review goals of care as clinical conditions evolves. d/w with Dr. Bell and Dr. Terrell [place] Attestation Attestation: To help prompt me to consider important information that might be impacting today's encounter and assessment, information from prior notes written by myself or my colleagues may have been "brought forward" into today's note. My signature on this note, however, is an attestation that I personally performed the exam, history, and/or decision-making noted today, and, unless otherwise indicated, the interactions with patient, family, and staff as well as the review of records all occurred today. I also attest that the listed assessment and stated plan reflect my best clinical judgment today based on the combination of historical information, prior notes, and today's exam/ interactions. When time spent is documented, it refers only to time spent today by the signer, or if indicated, combined time spent today by collaborating physician/nurse practitioner.
[2018-02-09 10:59] LABS: Baso % (Auto) 0.4 % (0.0-2.0); Eos % (Auto) 0.1 % (0.0-4.0); Hematocrit 24.2 % (39.0-51.0); Hemoglobin 8.1 gm/dL (13.0-17.0); Lymph # (Auto) 0.3 th/mm3 (1.0-4.8); Lymph % (Auto) 3.2 % (9.0-44.0); Mean Corpuscular HGB Conc 33.5 % (32.0-36.0); Mean Corpuscular Hemoglobin 29.8 pg (27.0-34.0); Mean Corpuscular Volume 88.9 fL (80.0-100.0); Mean Platelet Volume 9.7 fL (7.0-11.0); Mono # (Auto) 0.2 th/mm3 (0.0-0.9); Mono % (Auto) 2.5 % (0.0-8.0); Neut # (Auto) 8.2 th/mm3 (1.8-7.7); Neut % (Auto) 93.8 % (16.0-70.0); Platelet Count 37 th/mm3 (150-450); Red Blood Count 2.72 mil/mm3 (4.50-5.90); Red Cell Distribution Width 17.3 % (11.6-17.2); White Blood Count 8.8 th/mm3 (4.0-11.0)
[2018-02-09 11:28] LABS: Alanine Aminotransferase 40 U/L (12-78); Albumin 2.3 g/dL (3.4-5.0); Alkaline Phosphatase 122 U/L (45-117); Anion Gap 15 meq/L (5-15); Aspartate Aminotransferase 74 U/L (15-37); Blood Urea Nitrogen 50 mg/dL (7-18); Calcium 8.1 mg/dL (8.5-10.1); Carbon Dioxide 23.6 meq/L (21.0-32.0); Chloride 105 meq/L (98-107); Glomerular Filtration Rate 20 mL/min (>89); Glucose,Random 202 mg/dL (74-106); Potassium 3.9 meq/L (3.5-5.1); Sodium 144 meq/L (136-145)
[2018-02-09] MEDS: Amiodarone Inj 450 MG in Sodium Chlor 0.9% Inj 241 ML IV.SIG SCH ×2 (11:43→21:18)
--- NOTE | 2018-02-09 11:51 | P.PNID ---
Subjective Remarks: ID COVERAGE Most of the history of optimal review of medical records. is a 57-year-old male with very strong current history of alcohol abuse. His brother and [id number]-sy-jps were in the room report that he drinks greater than a pint for at least 25 years. Patient is a resident of [place] and reportedly moved here to be close to his brother. [facility]. Patient's brother reports that they often go to patient's house for safety checks. The last time he was reportedly normal was 5 days prior to him coming to the hospital. When patient' s brother went to visit him on the day of admission patient was markedly obtunded and difficult to arouse and had some matting of his eyelids and brother called EMS reportedly. When patient was seen by EMS she was found to be significantly encephalopathic and there was a concern for airway protection and therefore he was intubated for acute hypoxemia and hypercarbia. Reportedly was also an SVT with a heart rate greater than 200. In the emergency department he was cardioverted and was hypotensive requiring pressors. Patient was admitted to the ICU under critical care team. Patient is currently on vasopressors Larry-Synephrine at 100 mics, he is also on a propofol drip for sedation. He is currently on a ventilator with AC 50% FiO2, PEEP of 5 not much respiratory secretions noted. He also has a right-sided chest tube which was placed when a large effusion was noted on the CT scan. Per description by RN there was a lot of yellow looking purulent material noted when the chest tube was placed. Urology has been consulted because [place] was difficult to be placed. Patient does not have much in terms of her urine output and is currently at 50 cc. GI is following patient as well. Sepsis workup was initiated on admission infectious diseases consulted for evaluation and management of septic shock secondary to possibly right-sided empyema. Overnight events reviewed with RN. Temp 101 F Off pressors. Had HD today 2.5 L removed. All blood cultures with staph aureus, MSSA Pleural fluid with staph aureus, MSSA Urine culture with MSSA Sputum with Pseudomonas, E coli and MSSA No generalized rash No diarrhea. No BM. Antibiotics: Cefepime IV Flagyl IV Oxacillin IV Teflaro IV Lines: L TLC Past Medical History: Diabetes Hypertension Significant EtOH history some shoulder surgery Allergies/Adverse Reactions: Allergies lisinopril Allergy (Severe, Verified 02/05/18 06:22) airway edema Sulfa (Sulfonamide Antibiotics) Allergy (Severe, Verified 02/05/18 06:22) Edema, Localized AIRWAY EDEMA Objective Vital Signs 02/08/18 12:00 02/08/18 12:14 02/08/18 13:00 Temperature 100.3 F H Pulse Rate 97 H 97 H 97 H Respiratory Rate 18 18 18 Blood Pressure 112/55 L 113/55 L Pulse Oximetry 97 97 96 02/08/18 14:00 02/08/18 14:48 02/08/18 15:00 Temperature 99.0 F Pulse Rate 99 H 93 H 93 H Respiratory Rate 18 20 18 Blood Pressure 138/74 129/68 132/71 Pulse Oximetry 97 97 02/08/18 15:51 02/08/18 16:00 02/08/18 17:00 Temperature 99.5 F 99.5 F Pulse Rate 93 H 93 H 91 H Respiratory Rate 18 18 1 L Blood Pressure 120/66 137/76 118/59 L Pulse Oximetry 100 97 98 02/08/18 17:42 02/08/18 18:00 02/08/18 19:00 Temperature Pulse Rate 94 H 96 H 97 H Respiratory Rate 24 0 L 18 Blood Pressure 119/59 L 114/57 L Pulse Oximetry 96 97 97 02/08/18 20:00 02/08/18 21:00 02/08/18 21:45 Temperature 101.3 F H Pulse Rate 101 H 101 H Respiratory Rate 18 18 18 Blood Pressure 115/60 118/58 L Pulse Oximetry 97 97 96 02/08/18 22:00 02/08/18 23:00 02/09/18 00:00 Temperature 100.6 F H Pulse Rate 160 H 103 H 101 H Respiratory Rate 18 18 18 Blood Pressure 111/60 114/57 L 111/55 L Pulse Oximetry 97 97 97 02/09/18 01:00 02/09/18 02:00 02/09/18 03:00 Temperature Pulse Rate 97 H 95 H 96 H Respiratory Rate 18 18 18 Blood Pressure 113/56 L 116/57 L 110/56 L Pulse Oximetry 96 96 97 02/09/18 04:00 02/09/18 05:00 02/09/18 06:00 Temperature 100.3 F H Pulse Rate 97 H 165 H 155 H Respiratory Rate 18 18 18 Blood Pressure 112/56 L 117/74 106/59 L Pulse Oximetry 97 94 L 96 02/09/18 06:02 02/09/18 08:00 02/09/18 08:57 Temperature 101.4 F H Pulse Rate 156 H 155 H 161 H Respiratory Rate 18 20 Blood Pressure 109/63 Pulse Oximetry 96 98 02/09/18 10:19 02/09/18 11:38 Temperature Pulse Rate 145 H Respiratory Rate 18 22 Blood Pressure Pulse Oximetry 98 Intake & Output 02/08/18 02/09/18 02/09/18 18:59 06:59 18:59 Intake Total 1631 / 1631 743 / 743 450 / 450 Output Total 2500 / 2500 Balance 1601 / 1601 715 / 715 -2049 / -2049 Weight 106 kg Intake: IV 1228 / 1228 500 / 500 450 / 450 Neosynephrine Inj 40 MG In D5W 178 / 178 Inj 496 ML @ 40 MCG/MIN 30 mls/ hr IV.CONT TITRATE PRN Rx#: [id number] Pitressin Inj 40 UNIT In D5W 0 / 0 Inj 98 ML @ 0.04 UNITS/MIN 6 mls/hr IV.CONT CONT LEROY Rx#: [id number] Flexbumin 25% Inj 100 ML @ 60 200 / 200 mls/hr IV.SIG WITH DIALYSIS LEROY Rx#:[id number] Cordarone Inj 450 MG In NS Inj 250 / 250 250 / 250 241 ML @ 0.5 MG/MIN 16.66 mls/ hr IV.SIG .Q15H1M LEROY Rx#: [id number] Teflaro Inj 600 MG In NS Inj 200 / 200 100 / 100 100 ML @ 100 mls/hr IV.SIG Q8H LEROY Rx#:[id number] Prostaphlin Inj 2 GM In NS Inj 400 / 400 200 / 200 100 ML @ 200 mls/hr IV.SIG Q4H LEROY Rx#:[id number] Flagyl 500 MG Inj 100 ML @ 100 200 / 200 200 / 200 mls/hr IV.SIG Q6H LEROY Rx#: [id number] Tube Feeding 56 / 56 243 / 243 Water Bolus Amount 60 / 60 Intake (Blood Product) Amt 287 / 287 Plt Pheresis B Leukoreduced 287 / 287 Unit [id number] Output: Hemodialysis Amount 2500 / 2500 Urine Amount (Catheter) Coude Chest Tube Drainage 0 / 0 #1 Right Anterior 0 / 0 02/08/18 14:02 Blood - Peripheral Aerobic Blood Culture - Preliminary No growth in 1 day 02/08/18 14:02 Blood - Peripheral Anaerobic Blood Culture - Preliminary No growth in 1 day 02/08/18 13:55 Blood - Peripheral Aerobic Blood Culture - Preliminary No growth in 1 day 02/08/18 13:55 Blood - Peripheral Anaerobic Blood Culture - Preliminary No growth in 1 day 02/07/18 03:59 Blood - Peripheral Aerobic Blood Culture - Preliminary Staphylococcus aureus 02/07/18 03:59 Blood - Peripheral Anaerobic Blood Culture - Preliminary No growth in 2 days 02/06/18 10:59 Blood - Peripheral Aerobic Blood Culture - Final Staphylococcus aureus 02/06/18 10:59 Blood - Peripheral Anaerobic Blood Culture - Preliminary No growth in 3 days 02/08/18 12:30 Catheter Tip - Central Venous Line Wound Culture - Pending Lab - Hematology Results 02/07/18 02/08/18 02/08/18 08:30 04:30 08:50 WBC 10.5 9.3 RBC 2.92 L 2.82 L Hgb 8.7 L 8.5 L Hct 25.5 L 25.3 L MCV 87.5 89.7 MCH 29.9 30.2 MCHC 34.2 33.7 RDW 17.1 16.9 Plt Count 29 L 33 L MPV 10.8 9.7 Prelim Diff (Auto) Slide review pending Slide review pending Neut % (Auto) 92.8 H 93.2 H Lymph % (Auto) 4.8 L 4.8 L [place] % (Auto) 1.9 1.1 Eos % (Auto) 0.2 0.3 Baso % (Auto) 0.3 0.6 Neut # (Auto) 9.8 H 8.7 H Lymph # (Auto) 0.5 L 0.4 L [place] # (Auto) 0.2 0.1 Eos # (Auto) 0.0 0.0 Baso # (Auto) 0.0 0.1 WBC Differential Manual diff final Manual diff final Manual diff final Seg Neuts % (Manual) 88 H 83 H 78 H Band Neuts % (Manual) 10 H 13 H 20 H Lymphocytes % (Manual) 1 L 1 L Monocytes % (Manual) 1 1 Eosinophils % (Manual) 1 Myelocytes % (Man) 1 H 2 H Abs Neuts (Manual) 12.1 H 10.3 H 9.1 H Nucleated RBCs/100 WBC 1 H 2 H Differential Comment . . Toxic Granulation 1+ H 1+ H Platelet Estimate Low L Low L Low L Platelet Morphology Normal Enlarged H Normal Stomatocytes 1+ H 02/09/18 02/09/18 05:14 10:08 WBC 9.4 8.8 RBC 2.94 L 2.72 L Hgb 8.9 L 8.1 L Hct 25.9 L 24.2 L MCV 88.2 88.9 MCH 30.1 29.8 MCHC 34.1 33.5 RDW 17.1 17.3 H Plt Count 39 L 37 L MPV 9.9 9.7 Prelim Diff (Auto) Slide review pending Neut % (Auto) 93.8 H Lymph % (Auto) 3.2 L [place] % (Auto) 2.5 Eos % (Auto) 0.1 Baso % (Auto) 0.4 Neut # (Auto) 8.2 H Lymph # (Auto) 0.3 L [place] # (Auto) 0.2 Eos # (Auto) 0.0 Baso # (Auto) 0.0 WBC Differential Seg Neuts % (Manual) Band Neuts % (Manual) Lymphocytes % (Manual) Monocytes % (Manual) Eosinophils % (Manual) Myelocytes % (Man) Abs Neuts (Manual) Nucleated RBCs/100 WBC Differential Comment . Toxic Granulation Platelet Estimate Platelet Morphology Stomatocytes Lab - Chemistry Results 02/07/18 02/07/18 02/07/18 08:30 11:51 17:14 Sodium 139 Potassium 3.9 Chloride 99 Carbon Dioxide 24.9 Anion Gap 15 BUN 52 H Creatinine 3.45 H Estimated GFR 19 L POC Glucose 169 H 181 H Random Glucose 220 H Calcium 7.4 L* Prot Corrected Calcium 8.8 D Total Bilirubin 4.3 H AST 198 H ALT 70 Alkaline Phosphatase 159 H Total Protein 4.7 L Albumin 1.5 L D 02/07/18 02/08/18 02/08/18 21:25 00:30 04:30 Sodium 143 142 Potassium 3.4 L 3.4 L Chloride 104 102 Carbon Dioxide 25.3 23.8 Anion Gap 14 16 H BUN 49 H 52 H Creatinine 3.22 H 3.50 H Estimated GFR 20 L 18 L POC Glucose 188 H Random Glucose 180 H 189 H Calcium 7.3 L* 7.4 L* Prot Corrected Calcium 8.7 8.7 Total Bilirubin 6.2 H AST 114 H ALT 49 Alkaline Phosphatase 121 H Total Protein 4.7 L 4.8 L Albumin 1.6 L 02/08/18 02/08/18 02/08/18 07:42 08:50 11:34 Sodium 142 Potassium 3.7 Chloride 103 Carbon Dioxide 21.0 Anion Gap 18 H BUN 57 H Creatinine 3.77 H Estimated GFR 17 L POC Glucose 194 H 183 H Random Glucose 191 H Calcium 7.4 L* Prot Corrected Calcium 8.7 Total Bilirubin 6.1 H AST 106 H ALT 48 Alkaline Phosphatase 118 H Total Protein 4.8 L Albumin 1.6 L 02/08/18 02/08/18 02/09/18 16:09 20:53 05:14 Sodium 143 Potassium 4.1 Chloride 105 Carbon Dioxide 21.8 Anion Gap 16 H BUN 75 H Creatinine 4.90 H Estimated GFR 12 L POC Glucose 186 H 215 H Random Glucose 209 H Calcium 7.5 L Prot Corrected Calcium Total Bilirubin 7.4 H AST 86 H ALT 45 Alkaline Phosphatase 131 H Total Protein 5.5 L D Albumin 1.4 L 02/09/18 02/09/18 08:08 10:08 Sodium 144 Potassium 3.9 Chloride 105 Carbon Dioxide 23.6 Anion Gap 15 BUN 50 H Creatinine 3.30 H Estimated GFR 20 L POC Glucose 256 H Random Glucose 202 H Calcium 8.1 L Prot Corrected Calcium Total Bilirubin 7.7 H AST 74 H ALT 40 Alkaline Phosphatase 122 H Total Protein 6.0 L Albumin 2.3 L D Imaging: ITS Impressions Chest X-Ray 02/08/18 00:00 CONCLUSION: Stable chest. Vascular catheter in good position. Physical Exam: GENERAL: Sedated, on the vent, NAD SKIN: Cool and dry, no generalized rash HEAD: Atraumatic. Normocephalic. No temporal or scalp tenderness. EYES: Pupils equal round and reactive. Scleral icterus. No injection or drainage. No petechia ENT: Orally intubated NECK: Trachea midline. Supple, nontender, no meningeal signs. CARDIOVASCULAR: HS audible. RESPIRATORY: AE decreased in the bases R>L. Right side CT with serous fluid noted GASTROINTESTINAL: Abdomen distended, some grimacing during palpation MUSCULOSKELETAL: Extremities without clubbing, cyanosis. Mild pedal edema. Both feet are cool to touch. Has a large hemorrhagic bullous lesion on L palm NEUROLOGICAL: Sedated Psych could not be assessed IV line sites ok. Assessment and Plan - Plan MSSA sepsis, Septic Shock, on pressors Right side Pulm Empyema, MSSA Rule out endocarditis. Polymicrobial PNA ( PSAE, second GNR, Staph aureus) also likely aspiration in setting of alcoholism Cardiomegaly: ? alcohol related vs CAD. MSSA in urine. Acute resp failure on vent Acute oliguric renal failure: prerenal, sepsis. - on CVVHD Acute metabolic encephalopathy: sepsis, metabolic. Leukocytosis Thrombocytopenia: sepsis, no DIC RECOMMENDATION Continue IV Oxacillin for MSSA Continue IV Cefepime for PSAE and E coli Continue Teflaro IV (as second MSSA agent pending clearance of bacteremia) DC Flagyl IV Repeat BC to document clearing Troy Aguirre EMILY if goals remain aggressive. Cardiology consult placed 02/07/2018 by . Control Systems Engineer and RN notified. Troy Aguirre to address this as EMILY may help with further guidance of care and prognostication. troy Vega palliative care: he will dw Family about EMILY. He later informed me patient family ok with EMILY. Follow cultures Monitor progress D/W RN
[2018-02-09 11:59] LABS: Platelet Morphology Normal (Normal); Stomatocytes 2+; Toxic Granulation 1+
[2018-02-09] MEDS: Pantoprazole Inj 40 MG Vial IV.PUSH SCH (12:06)
[2018-02-09] MEDS: Chlorhexidine 0.12% Oral Kit 15 ML UDC OROPHARYNG SCH ×2 (12:07→21:18)
[2018-02-09] MEDS: Insulin NovoLIN Regular Correctional Sugar Inj SQ SCH ×4 (14:00→21:19)
--- NOTE | 2018-02-09 14:09 | MB ---
cc: Kellen Delcid MD DATE: 02/09/2018 HISTORY OF PRESENT ILLNESS: A 57-year-old white male with a history of alcohol abuse, was found unresponsive at home on 02/02/2018. He had altered mental status, respiratory failure and was intubated. He was found to have atrial fibrillation/flutter; cardioversion was unsuccessful. His rate was eventually slowed with IV amiodarone. The patient was started on pressors for hypotension and shock. He was seen by ID and transesophageal echocardiogram is now requested to evaluate for endocarditis. The patient is intubated on the ventilator in the ICU. PAST MEDICAL HISTORY: Positive for diabetes mellitus, hypertension. PAST SURGICAL HISTORY: Shoulder surgery. MEDICATIONS: Include Mucomyst, Albumin, Albuterol, amiodarone, cefepime, ceftaroline, vancomycin, insulin and thiamine. The patient is now off pressors. ALLERGIES: LISINOPRIL AND SULFA. SOCIAL HISTORY: The patient admits to heavy alcohol use. He also smokes. FAMILY HISTORY: Negative for heart disease. REVIEW OF SYSTEMS: Otherwise negative. PHYSICAL EXAMINATION: VITAL SIGNS: Blood pressure 109/63, pulse 145 and irregular. GENERAL: The patient is intubated, restless. NECK: 2+ carotid upstrokes. No bruits. LUNGS: Bilateral few rhonchi. HEART: Irregular. No murmur, gallop or rub. ABDOMEN: Soft. EXTREMITIES: Trace edema. 2+ distal pulses. NEUROLOGIC: Grossly nonfocal. The patient is moving all extremities. He is restless, but not responding to commands. LABORATORY DATA: EKG was reviewed and showed atrial fibrillation/flutter with a rapid ventricular response. Telemetry now shows atrial flutter with variable block. Echocardiogram on 02/03/2018, showed preserved left ventricular systolic function, ejection fraction 60-65%, mild tricuspid regurgitation and pulmonary artery pressure of 40 mmHg. Hemoglobin 8.1, platelets 37, potassium 3.9, creatinine 3.3, AST 74, ALT 40. DIAGNOSES: 1. Respiratory failure. 2. Acute metabolic encephalopathy. 3. Heavy alcohol abuse. 4. Right-sided empyema. 5. Septic shock. 6. Atrial flutter with a rapid ventricular response. 7. Acute kidney injury. 8. Acute rhabdomyolysis. 9. Elevated liver function tests. 10. Coagulopathy. DISPOSITION: Mr. Forrester will continue his current ICU program. I recommend to continue antibiotics as per infectious disease service. He has been weaned off pressors. I recommend to continue to wean him off the ventilator as tolerated. He will be scheduled for transesophageal echocardiogram in the near future to evaluate for endocarditis. MD LACEY Santillan/TL , 01:42 PM , 02:08 PM MTDLaureano
--- NOTE | 2018-02-09 14:26 | P.DIET ---
Nutritional Evaluation Type of nutrition evaluation: initial Nutrition consult regarding: Tube Feeding Objective - Diagnosis AMS, Intubated - Objective % IBW: 127 Body Weight Used for Calculations: IBW Energy Needs - Lower Range (kCal/kg): 28 Energy Needs - Upper Range (kCal/kg): 33 Lower Limit kCal/kg (kCals): 1,960 Upper Limit kCal/kg (kCals): 2,310 Lower Limit Protein Factor (Grams per Kg): 1.2 Upper Limit Protein Factor (Grams per Kg): 1.5 Lower Protein Needs (Protein): 84 Upper Protein Needs (Protein): 105 Objective Comments: Nutritional needs assessed using 70kg PMH: Chronic back pain, Depression, DM, Diverticulitis, ETOH Abuse Meds include: Theragran, Vit B1, Fentanyl Labs include: Hgb 8.1, Hct 24.2, Cr 3.30, Glu 202, POC Glu 256, 215, T Bili 7.7 , elevated LFT's HD 02/09 2500mls removed (-) BM Feeding - Current Tube Feeding Tube Feeding Product: Nepro Tube Feeding Method: Pump Tube Feeding Rate: 35 Assessment Assessment: Pt at nutritional risk r/t dx and need for a TF for nutrition support. Pt intubated and sedated on Fentanyl. Pt with acute kidney failure with tubular necrosis, is on HD. TF Nepro with goal rate 40 ml/hr per MD. P't's nutritional needs as assessed above. To meet his needs, a goal rate of 50 ml/hr is necessary which provides 2160 kcals, 97 gms protein and 872 mls free water. Will monitor TF tolerance, clinical course. Recommendations: TF Nepro with goal rate 50 ml/hr to meet pt's nutritional needs Dietitian to monitor TF tolerance, clinica course. Dietitian to Monitor: Lab values, Renal labs, Intake & Output, Tube feeding tolerance, Medical course
[2018-02-09] MEDS: fentaNYL 10 mcg/mL Premix Drip 2,500 MCG/250 ML BAG IV.CONT PRN (14:53)
--- NOTE | 2018-02-09 19:06 | P.PN ---
Subjective Interval history: Patient remain on the vent. and sedated. Physical Exam Vital signs: Vital Signs 02/08/18 20:00 02/08/18 21:00 02/08/18 21:45 Temperature 101.3 F H Pulse Rate 101 H 101 H Respiratory Rate 18 18 18 Blood Pressure 115/60 118/58 L Pulse Oximetry 97 97 96 02/08/18 22:00 02/08/18 23:00 02/09/18 00:00 Temperature 100.6 F H Pulse Rate 160 H 103 H 101 H Respiratory Rate 18 18 18 Blood Pressure 111/60 114/57 L 111/55 L Pulse Oximetry 97 97 97 02/09/18 01:00 02/09/18 02:00 02/09/18 03:00 Temperature Pulse Rate 97 H 95 H 96 H Respiratory Rate 18 18 18 Blood Pressure 113/56 L 116/57 L 110/56 L Pulse Oximetry 96 96 97 02/09/18 04:00 02/09/18 05:00 02/09/18 06:00 Temperature 100.3 F H Pulse Rate 97 H 165 H 155 H Respiratory Rate 18 18 18 Blood Pressure 112/56 L 117/74 106/59 L Pulse Oximetry 97 94 L 96 02/09/18 06:02 02/09/18 08:00 02/09/18 08:57 Temperature 101.4 F H Pulse Rate 156 H 155 H 161 H Respiratory Rate 18 20 Blood Pressure 109/63 Pulse Oximetry 96 98 02/09/18 10:00 02/09/18 10:19 02/09/18 11:38 Temperature Pulse Rate 146 H 145 H Respiratory Rate 18 22 Blood Pressure Pulse Oximetry 98 02/09/18 12:00 02/09/18 14:00 02/09/18 14:04 Temperature 99.5 F Pulse Rate 144 H 162 H Respiratory Rate 18 24 Blood Pressure 94/56 L Pulse Oximetry 99 95 02/09/18 15:29 02/09/18 16:00 02/09/18 16:45 Temperature 99.0 F Pulse Rate 49 L 169 H Respiratory Rate 16 18 17 Blood Pressure 111/66 Pulse Oximetry 97 97 02/09/18 18:00 Temperature Pulse Rate 154 H Respiratory Rate Blood Pressure Pulse Oximetry Intake & Output 02/09/18 02/09/18 02/10/18 06:59 18:59 06:59 Intake Total 743 / 743 1304 / 1304 Output Total 2528 / 2528 Balance 715 / 715 -1224 / -1224 Weight 106 kg Intake: IV 500 / 500 950 / 950 Flexbumin 25% Inj 100 ML @ 60 200 / 200 mls/hr IV.SIG WITH DIALYSIS LEROY Rx#:[id number] Cordarone Inj 450 MG In NS Inj 250 / 250 241 ML @ 0.5 MG/MIN 16.66 mls/ hr IV.SIG .Q15H1M LEROY Rx#: [id number] Maxipime Inj 2,000 MG In NS Inj 100 / 100 100 ML @ 200 mls/hr IV.SIG Q24H LEROY Rx#:[id number] Teflaro Inj 600 MG In NS Inj 100 / 100 100 / 100 100 ML @ 100 mls/hr IV.SIG Q8H LEROY Rx#:[id number] Prostaphlin Inj 2 GM In NS Inj 200 / 200 300 / 300 100 ML @ 200 mls/hr IV.SIG Q4H LEROY Rx#:[id number] Flagyl 500 MG Inj 100 ML @ 100 200 / 200 mls/hr IV.SIG Q6H LEROY Rx#: [id number] Tube Feeding 243 / 243 354 / 354 Output: Hemodialysis Amount 2500 / 2500 Urine Amount (Catheter) Coude Chest Tube Drainage 0 / 0 #1 Right Anterior 0 / 0 - Constitutional no acute distress - Routine HEENT Exam Head: Present: normocephalic - Routine Neck Exam Present: supple - Routine Cardiovascular Exam Present: S1, S2 - Routine Abdominal Exam Present: soft, normoactive bowel sounds - Routine Extremities Exam Present: edema - Urinary Catheter Management Coude Cath placed during this visit: yes Reason for continuing: Hourly intake/output Insertion date: 02/02/18 Results - Labs CBC & Chem 7: 02/09/18 10:08 02/09/18 10:08 Laboratory Results - last 24 hr 02/08/18 02/09/18 02/09/18 20:53 05:14 05:14 WBC 9.4 RBC 2.94 L Hgb 8.9 L Hct 25.9 L MCV 88.2 MCH 30.1 MCHC 34.1 RDW 17.1 Plt Count 39 L MPV 9.9 Prelim Diff (Auto) Neut % (Auto) Lymph % (Auto) [place] % (Auto) Eos % (Auto) Baso % (Auto) Neut # (Auto) Lymph # (Auto) [place] # (Auto) Eos # (Auto) Baso # (Auto) WBC Differential Diff Scan Differential Comment Toxic Granulation Platelet Estimate Platelet Morphology Stomatocytes Sodium 143 Potassium 4.1 Chloride 105 Carbon Dioxide 21.8 Anion Gap 16 H BUN 75 H Creatinine 4.90 H Estimated GFR 12 L POC Glucose 215 H Random Glucose 209 H Calcium 7.5 L Total Bilirubin 7.4 H AST 86 H ALT 45 Alkaline Phosphatase 131 H Total Protein 5.5 L D Albumin 1.4 L 02/09/18 02/09/18 02/09/18 08:08 10:08 10:08 WBC 8.8 RBC 2.72 L Hgb 8.1 L Hct 24.2 L MCV 88.9 MCH 29.8 MCHC 33.5 RDW 17.3 H Plt Count 37 L MPV 9.7 Prelim Diff (Auto) Slide review pending Neut % (Auto) 93.8 H Lymph % (Auto) 3.2 L [place] % (Auto) 2.5 Eos % (Auto) 0.1 Baso % (Auto) 0.4 Neut # (Auto) 8.2 H Lymph # (Auto) 0.3 L [place] # (Auto) 0.2 Eos # (Auto) 0.0 Baso # (Auto) 0.0 WBC Differential . Diff Scan Auto diff confirmed Differential Comment . Toxic Granulation 1+ H Platelet Estimate Low L Platelet Morphology Normal Stomatocytes 2+ H Sodium 144 Potassium 3.9 Chloride 105 Carbon Dioxide 23.6 Anion Gap 15 BUN 50 H Creatinine 3.30 H Estimated GFR 20 L POC Glucose 256 H Random Glucose 202 H Calcium 8.1 L Total Bilirubin 7.7 H AST 74 H ALT 40 Alkaline Phosphatase 122 H Total Protein 6.0 L Albumin 2.3 L D 02/09/18 02/09/18 13:17 16:39 WBC RBC Hgb Hct MCV MCH MCHC RDW Plt Count MPV Prelim Diff (Auto) Neut % (Auto) Lymph % (Auto) [place] % (Auto) Eos % (Auto) Baso % (Auto) Neut # (Auto) Lymph # (Auto) [place] # (Auto) Eos # (Auto) Baso # (Auto) WBC Differential Diff Scan Differential Comment Toxic Granulation Platelet Estimate Platelet Morphology Stomatocytes Sodium Potassium Chloride Carbon Dioxide Anion Gap BUN Creatinine Estimated GFR POC Glucose 226 H 261 H Random Glucose Calcium Total Bilirubin AST ALT Alkaline Phosphatase Total Protein Albumin Microbiology 02/08/18 12:30 Catheter Tip - Central Venous Line Wound Culture - Preliminary No growth in 24 hours 02/08/18 14:02 Blood - Peripheral Aerobic Blood Culture - Preliminary No growth in 1 day 02/08/18 14:02 Blood - Peripheral Anaerobic Blood Culture - Preliminary No growth in 1 day 02/08/18 13:55 Blood - Peripheral Aerobic Blood Culture - Preliminary No growth in 1 day 02/08/18 13:55 Blood - Peripheral Anaerobic Blood Culture - Preliminary No growth in 1 day 02/07/18 03:59 Blood - Peripheral Aerobic Blood Culture - Preliminary Staphylococcus aureus 02/07/18 03:59 Blood - Peripheral Anaerobic Blood Culture - Preliminary No growth in 2 days 02/06/18 10:59 Blood - Peripheral Aerobic Blood Culture - Final Staphylococcus aureus 02/06/18 10:59 Blood - Peripheral Anaerobic Blood Culture - Preliminary No growth in 3 days Assessment and Plan - Assessment (1) Acute renal failure (ARF) Code(s): N17.9 - Acute kidney failure, unspecified Status: Acute (2) Sepsis Code(s): A41.9 - Sepsis, unspecified organism Status: Acute (3) Respiratory failure Code(s): J96.90 - Respiratory failure, unspecified, unspecified whether with hypoxia or hypercapnia Status: Acute (4) Hypotension Code(s): I95.9 - Hypotension, unspecified Status: Acute - Plan (1) Acute renal failure ICD Codes: N17.9 - Acute kidney failure, unspecified Plan: Patient has no urine output Cr higher CRRT started on 02/04. BP low normal off vasopressor Large pleural effusion was drained He has gram-negative in sputum Ceftaroline/Zerbaxa ID following Vascath was removed, and re inserted. HD done in AM, Continue antibiotics. Watch for renal recovery. (2) Sepsis ICD Codes: A41.9 - Sepsis, unspecified organism Plan: ID following (3) Rhabdomyolysis ICD Codes: M62.82 - Rhabdomyolysis Plan: On bicarbonate drip (4) UTI (lower urinary tract infection) ICD Codes: N39.0 - Urinary tract infection, site not specified Plan: Patient has staph infection and ID is following (5) Pneumonia ICD Codes: J18.9 - Pneumonia, unspecified organism Plan: Pleural effusion drained
[2018-02-10] MEDS: Propofol 1000 mg/100 ml Inj 1,000 MG/100 ML BOTTLE IV.CONT PRN ×3 (02:05→22:55)
[2018-02-10] MEDS: fentaNYL 10 mcg/mL Premix Drip 2,500 MCG/250 ML BAG IV.CONT PRN ×3 (02:05→22:56)
[2018-02-10] MEDS: Insulin NovoLIN Regular Correctional Sugar Inj SQ SCH ×2 (08:00→12:29)
[2018-02-10] MEDS: Pantoprazole Inj 40 MG Vial IV.PUSH SCH (08:02)
[2018-02-10] MEDS: Chlorhexidine 0.12% Oral Kit 15 ML UDC OROPHARYNG SCH ×2 (08:05→22:53)
--- NOTE | 2018-02-10 08:48 | P.PNCC ---
Subjective Subjective Remarks/Hospital Course: 02/05: This is a 57-year-old male with a strong history of EtOH abuse, his family states that he drinks greater than a pint today times at least 25 years. He was found unresponsive at home this afternoon. The last time he was seen normal was 5 days ago. He was brought in by EMS and was severely altered. He was intubated for acute hypoxemia and hypercarbia. He was also in a supraventricular tachycardia with a heart rate greater than 200. In the emergency department he was electrically cardioverted 2 without success, and given 5 mill grams of IV Lopressor which caused severe hypotension, but did not resolve his tachycardia. Immediately upon being notified went down to the emergency department evaluated the patient and transported him up to the intensive care unit. Once in the intensive care unit, I placed arterial and central lines, see separate procedure note for details. I loaded the patient with 150 mg of amiodarone and 2 g magnesium. In addition, the patient has a blood gas with severe metabolic acidosis and a pH less than 7.2. I gave 4 A of sodium bicarbonate as well as 1 g of calcium chloride for severe hypocalcemia. After these interventions, the patient spontaneously converted to a sinus tachycardia. The patient was placed on norepinephrine for persistent hypotension and shock. The emergency department attempted to place a 16 Iranian Ennis catheter and was unsuccessful with this. I attempted an additional time to place both an 18 Iranian coud catheter as well as a 24 Iranian three-way catheter, both which were unsuccessful and met significant resistance at approximately 10-12 cm. I consulted urology and discussed the case with Dr. Worley who agrees to Place Ennis catheter tonight for emergent urine output monitoring while in shock. The patient remains altered no additional information is available from patient. ROS is unobtainable. 02/03 Patient is intubated on Levoped 5 mics, Amio and bicarb drips. 16Fr catheter was placed by Urology. 02/04 Patient remains intubated and sedated with Diprivan. Off Levophed on Neosyn 60mics. Right sided pig tail catheter placed yesterday with removal 1100ml cloudy fluid fluid analysis c/w empyema. Renal function declining with Cr: 5.87 and UOP 120ml in 12 hrs. Tmax 102.2 02/05: remains intubated and critically ill. on CVVHD. per RN, net -300/hr on CVVHD. off vasopressors this AM. 02/06: Remains sedated, orally intubated on mechanical ventilation. CRRT clotted off last night. Nephrology planning HD 02/07 Patient remains intubated and sedated with Fentanyl infusion. Off Neosyn remains on Vasopressin and Amio drip. T;102 last night. 02/08 No events overnight. Intubated and on Fentanyl infusion for sedation. Afebrile. Off all pressors. s/p HD yesterday. On Amio drip. 02/09 Patient remains sedated and intubated. For HD today. On Amio drip, T:101.3 last night. 02/10 No events overnight. Sedated with Diprivan and Fentnayl drips. Afebrile. For possible EMILY today. Objective Vital Signs / I&O: Vital Signs 02/09/18 08:57 02/09/18 10:00 02/09/18 10:19 Temperature Pulse Rate 161 H 146 H Respiratory Rate 20 18 Blood Pressure Pulse Oximetry 98 98 02/09/18 11:38 02/09/18 12:00 02/09/18 14:00 Temperature 99.5 F Pulse Rate 145 H 144 H 162 H Respiratory Rate 22 18 Blood Pressure 94/56 L Pulse Oximetry 99 02/09/18 14:04 02/09/18 15:29 02/09/18 16:00 Temperature 99.0 F Pulse Rate 49 L 169 H Respiratory Rate 24 16 18 Blood Pressure 111/66 Pulse Oximetry 95 97 02/09/18 16:45 02/09/18 18:00 02/09/18 19:00 Temperature Pulse Rate 154 H 149 H Respiratory Rate 17 18 Blood Pressure 110/64 Pulse Oximetry 97 96 02/09/18 20:00 02/09/18 20:41 02/09/18 20:49 Temperature 98.9 F Pulse Rate 146 H 101 H Respiratory Rate 18 18 18 Blood Pressure 103/57 L Pulse Oximetry 96 97 02/09/18 21:00 02/09/18 22:00 02/09/18 23:00 Temperature Pulse Rate 146 H 144 H 146 H Respiratory Rate 18 18 18 Blood Pressure 89/57 L 135/74 106/65 Pulse Oximetry 96 96 97 02/10/18 00:00 02/10/18 01:00 02/10/18 01:06 Temperature 99.2 F Pulse Rate 149 H 146 H 101 H Respiratory Rate 18 18 21 Blood Pressure 109/63 151/84 H Pulse Oximetry 97 96 02/10/18 01:07 02/10/18 02:00 02/10/18 03:00 Temperature Pulse Rate 147 H 150 H Respiratory Rate 23 18 18 Blood Pressure 130/78 99/58 L Pulse Oximetry 95 96 97 02/10/18 04:00 02/10/18 04:45 02/10/18 04:58 Temperature 99.0 F Pulse Rate 150 H 100 H Respiratory Rate 18 18 18 Blood Pressure 104/63 Pulse Oximetry 97 97 02/10/18 05:00 02/10/18 06:00 02/10/18 07:00 Temperature Pulse Rate 148 H 148 H 90 Respiratory Rate 18 18 18 Blood Pressure 106/72 104/64 104/55 L Pulse Oximetry 97 97 98 Intake & Output 02/09/18 02/10/18 02/10/18 18:59 06:59 18:59 Intake Total 1304 / 1304 1073 / 1073 100 / 100 Output Total 2528 / 2528 0 / 0 Balance -1224 / -1224 1073 / 1073 100 / 100 Weight 106 kg Intake: IV 950 / 950 800 / 800 100 / 100 Diprivan 1000 mg/100 ml Inj 1, 0 / 0 000 mg In 100 ml @ 5 MCG/KG/MIN 2.85 mls/hr IV.CONT TITRATE PRN Rx#:[id number] fentaNYL 10 mcg/mL Premix Drip 250 / 250 2,500 mcg In 250 ml @ 50 MCG/HR 5 mls/hr IV.CONT TITRATE PRN Rx#:[id number] Flexbumin 25% Inj 100 ML @ 60 200 / 200 mls/hr IV.SIG WITH DIALYSIS LEROY Rx#:[id number] Cordarone Inj 450 MG In NS Inj 250 / 250 250 / 250 241 ML @ 0.5 MG/MIN 16.66 mls/ hr IV.SIG .Q15H1M LEROY Rx#: [id number] Maxipime Inj 2,000 MG In NS Inj 100 / 100 100 ML @ 200 mls/hr IV.SIG Q24H LEROY Rx#:[id number] Teflaro Inj 600 MG In NS Inj 100 / 100 100 / 100 100 ML @ 100 mls/hr IV.SIG Q8H LEROY Rx#:[id number] Prostaphlin Inj 2 GM In NS Inj 300 / 300 200 / 200 100 / 100 100 ML @ 200 mls/hr IV.SIG Q4H LEROY Rx#:[id number] Tube Feeding 354 / 354 273 / 273 Output: Hemodialysis Amount 2500 / 2500 Urine Amount (Catheter) 0 / 0 Coude 0 / 0 Chest Tube Drainage 0 / 0 #1 Right Anterior 0 / 0 Result Diagrams: 02/10/18 10:54 02/10/18 09:30 Objective Remarks: GENERAL: Patient is 57 yo intubated and sedated. SKIN: Warm and dry. HEAD: Normocephalic. EYES: No scleral icterus. No injection or drainage. NECK: Supple, trachea midline. No JVD. CARDIOVASCULAR: Regular rate and rhythm. sinus. RESPIRATORY: Breath sounds equal bilaterally. No accessory muscle use. GASTROINTESTINAL: Abdomen soft, non-tender, nondistended. MUSCULOSKELETAL: No cyanosis, or edema. Neuro: Intubated, sedated Assessment and Plan - Assessment and Plan Plan: A/P Plan by systems: Neurologic: Acute metabolic encephalopathy etoh abuse Likely secondary to EtOH abuse Monitor neuro status, on Thiamine/MVI/ On Fentanyl/Diprivan infusion for sedation. Daily sedation vacation CT brain : No acute process on 02/02 EEG: Diffuse encephalopathy Respiratory: Acute hypoxic and hypercarbic respiratory failure Right sided empyema Continue with vent support keep sats >92% Bronchodilates, ICU vent bundle, SBT daily as marquez. s/p right pigtail catheter placement 02/03 Pleural fluid analysis c/w empyema, monitor CT drainage. Cardiovascular: Mixed hypovolemic and septic shock Atrial fibrillation with rapid ventricular response Monitor HR and BP keep MAP>65mmHg On Amio drip, place on Cardizem 60mg QID Status post 5 L crystalloid resuscitation in the emergency department Lactic acid is trending down Echo showed EF 60-65%, no RWMA Discussed with Dr. Delcid for possible EMILY today Renal: Acute kidney injury-severe Acute rhabdomyolysis Obstructive uropathy BPH Monitor renal function, I/O's, avoid nephrotoxins Urology is following- s/p 16Fr Ennis catheter placement Renal is following- Dr. Dinh. s/p HD yesterday with 2.5L fluid removal. FEN/GI: Elevated LFT's with hyperbilirubinemia Acute protein calorie malnutrition: S NPO for EMILY today tube feeds ( Nepro) @ 40ml/hr on hold Ammonia level <10 on 02/02 Hepatitis profile: Non reactive, Heme/ID: Coagulopathy, probably secondary to end-stage liver disease Thrombocytopenia, secondary to shock Leukopenia, secondary septic shock On Teflaro, Cefepime, Oxacillinnl per ID Monitor for signs of infections ( Fever, WBC) follow up on cultures on BC from 02/08- NGTD 02/07 BC GPC , staph bacteremia 02/02 Sputum cx: GNR 02/02 Urine cx: Staph Aureus 02/03 BC: GPC 08/12 bottles 02/03 Fluid cx: NGTD HIV ab: non reactive Monitor CBC, coags, s/p transfusion 1u PLT pheresis 02/08 Endocrine: Hyperglycemia of critical illness -- SSI, TSH 1.6 Prophylaxis: GI Prophylaxis Protonix IV DVT Prophylaxis -- SCDs - Subcu heparin on hold for thrombocytopenia Palliative care is following Code status: Alternative code Lines: New Right IJ vascath placed 02/08. Peripheral IV's Follow up on labs today Condition critical Time spent on critical care excluding procedures 30 minutes
[2018-02-10 09:52] LABS: Hematocrit 21.7 % (39.0-51.0); Hemoglobin 7.2 gm/dL (13.0-17.0); Mean Corpuscular HGB Conc 33.4 % (32.0-36.0); Mean Corpuscular Hemoglobin 30.4 pg (27.0-34.0); Mean Platelet Volume 10.3 fL (7.0-11.0); Platelet Count 51 th/mm3 (150-450); Red Blood Count 2.38 mil/mm3 (4.50-5.90); Red Cell Distribution Width 17.5 % (11.6-17.2); White Blood Count 5.8 th/mm3 (4.0-11.0)
[2018-02-10 10:08] LABS: ABG Base Excess -1.4 mmol/L (-2-2); ABG PCO2 30 mmHg (38-42); ABG PO2 80 mmHG (61-120)
[2018-02-10 10:13] LABS: Albumin 1.5 g/dL (3.4-5.0); Calcium 7.1 mg/dL (8.5-10.1); Carbon Dioxide 22.5 meq/L (21.0-32.0); Potassium 4.1 meq/L (3.5-5.1); Total Protein 5.3 g/dL (6.4-8.2)
--- NOTE | 2018-02-10 12:56 | P.PNGI ---
Subjective Interval history: Pt on Fentany and Propofol but awake. Remains intubated via ETT. Tube feeding currently off for possible EMILY today. Physical Exam Vital signs: Vital Signs 02/09/18 14:00 02/09/18 14:04 02/09/18 15:29 Temperature Pulse Rate 162 H 49 L Respiratory Rate 24 16 Blood Pressure Pulse Oximetry 95 02/09/18 16:00 02/09/18 16:45 02/09/18 18:00 Temperature 99.0 F Pulse Rate 169 H 154 H Respiratory Rate 18 17 Blood Pressure 111/66 Pulse Oximetry 97 97 02/09/18 19:00 02/09/18 20:00 02/09/18 20:41 Temperature 98.9 F Pulse Rate 149 H 146 H Respiratory Rate 18 18 18 Blood Pressure 110/64 103/57 L Pulse Oximetry 96 96 97 02/09/18 20:49 02/09/18 21:00 02/09/18 22:00 Temperature Pulse Rate 101 H 146 H 144 H Respiratory Rate 18 18 18 Blood Pressure 89/57 L 135/74 Pulse Oximetry 96 96 02/09/18 23:00 02/10/18 00:00 02/10/18 01:00 Temperature 99.2 F Pulse Rate 146 H 149 H 146 H Respiratory Rate 18 18 18 Blood Pressure 106/65 109/63 151/84 H Pulse Oximetry 97 97 96 02/10/18 01:06 02/10/18 01:07 02/10/18 02:00 Temperature Pulse Rate 101 H 147 H Respiratory Rate 21 23 18 Blood Pressure 130/78 Pulse Oximetry 95 96 02/10/18 03:00 02/10/18 04:00 02/10/18 04:45 Temperature 99.0 F Pulse Rate 150 H 150 H Respiratory Rate 18 18 18 Blood Pressure 99/58 L 104/63 Pulse Oximetry 97 97 97 02/10/18 04:58 02/10/18 05:00 02/10/18 06:00 Temperature Pulse Rate 100 H 148 H 148 H Respiratory Rate 18 18 18 Blood Pressure 106/72 104/64 Pulse Oximetry 97 97 02/10/18 07:00 02/10/18 08:00 02/10/18 09:17 Temperature 100.1 F H Pulse Rate 90 91 H 86 Respiratory Rate 18 18 22 Blood Pressure 104/55 L 111/60 Pulse Oximetry 98 91 L 97 02/10/18 10:00 Temperature Pulse Rate 83 Respiratory Rate Blood Pressure Pulse Oximetry Intake & Output 02/09/18 02/10/18 02/10/18 18:59 06:59 18:59 Intake Total 1304 / 1304 1073 / 1073 450 / 450 Output Total 2528 / 2528 0 / 0 Balance -1224 / -1224 1073 / 1073 450 / 450 Weight 106 kg Intake: IV 950 / 950 800 / 800 450 / 450 Diprivan 1000 mg/100 ml Inj 1, 0 / 0 100 / 100 000 mg In 100 ml @ 5 MCG/KG/MIN 2.85 mls/hr IV.CONT TITRATE PRN Rx#:[id number] fentaNYL 10 mcg/mL Premix Drip 250 / 250 250 / 250 2,500 mcg In 250 ml @ 50 MCG/HR 5 mls/hr IV.CONT TITRATE PRN Rx#:[id number] Flexbumin 25% Inj 100 ML @ 60 200 / 200 mls/hr IV.SIG WITH DIALYSIS LEROY Rx#:[id number] Cordarone Inj 450 MG In NS Inj 250 / 250 250 / 250 241 ML @ 0.5 MG/MIN 16.66 mls/ hr IV.SIG .Q15H1M LEROY Rx#: [id number] Maxipime Inj 2,000 MG In NS Inj 100 / 100 100 ML @ 200 mls/hr IV.SIG Q24H LEROY Rx#:[id number] Teflaro Inj 600 MG In NS Inj 100 / 100 100 / 100 100 ML @ 100 mls/hr IV.SIG Q8H LEROY Rx#:[id number] Prostaphlin Inj 2 GM In NS Inj 300 / 300 200 / 200 100 / 100 100 ML @ 200 mls/hr IV.SIG Q4H LEROY Rx#:[id number] Tube Feeding 354 / 354 273 / 273 Output: Hemodialysis Amount 2500 / 2500 Urine Amount (Catheter) 0 / 0 Coude 0 / 0 Chest Tube Drainage 0 / 0 #1 Right Anterior 0 / 0 - Constitutional mild distress - Routine HEENT Exam Head: Present: normocephalic, atraumatic Eye: Present: conjunctival icterus - Routine Respiratory Exam Present: patient mechanically ventilated - Routine Cardiovascular Exam Present: RRR - Routine Abdominal Exam Present: distended, firm Comments: decreased bowel sounds - Routine Skin Exam Present: jaundice - Urinary Catheter Management Coude Cath placed during this visit: yes Reason for continuing: Hourly intake/output Insertion date: 02/02/18 Results - Labs CBC & Chem 7: 02/10/18 10:54 02/10/18 09:30 Laboratory Results - last 24 hr 02/09/18 02/09/18 02/09/18 13:17 16:39 21:18 WBC RBC Hgb Hct MCV MCH MCHC RDW Plt Count MPV Puncture Site Patient Temperature O2 Saturation ABG pH ABG pCO2 ABG pO2 ABG HCO3 ABG O2 Content ABG Base Excess ABG Methemoglobin Hemoglobin Carboxyhemoglobin O2 Delivery Device Vent Setting Inspired O2 Critical Value Sodium Potassium Chloride Carbon Dioxide Anion Gap BUN Creatinine Estimated GFR POC Glucose 226 H 261 H 254 H Random Glucose Calcium Prot Corrected Calcium Total Bilirubin AST ALT Alkaline Phosphatase Total Protein Albumin 02/10/18 02/10/18 02/10/18 08:00 09:30 09:30 WBC 5.8 RBC 2.38 L Hgb 7.2 L Hct 21.7 L MCV 91.0 MCH 30.4 MCHC 33.4 RDW 17.5 H Plt Count 51 L D MPV 10.3 Puncture Site Patient Temperature O2 Saturation ABG pH ABG pCO2 ABG pO2 ABG HCO3 ABG O2 Content ABG Base Excess ABG Methemoglobin Hemoglobin Carboxyhemoglobin O2 Delivery Device Vent Setting Inspired O2 Critical Value Sodium 144 Potassium 4.1 Chloride 107 Carbon Dioxide 22.5 Anion Gap 15 BUN 73 H Creatinine 4.71 H Estimated GFR 13 L POC Glucose 256 H Random Glucose 234 H Calcium 7.1 L* D Prot Corrected Calcium 8.1 L Total Bilirubin 6.8 H AST 56 H ALT 32 Alkaline Phosphatase 156 H Total Protein 5.3 L D Albumin 1.5 L D 02/10/18 02/10/18 02/10/18 09:58 10:54 11:48 WBC RBC Hgb 7.0 L Hct 21.0 L MCV MCH MCHC RDW Plt Count MPV Puncture Site Art line Patient Temperature 98.6 O2 Saturation 92 ABG pH 7.48 H ABG pCO2 30 L ABG pO2 80 ABG HCO3 22 ABG O2 Content 17.2 ABG Base Excess -1.4 ABG Methemoglobin 1.6 Hemoglobin 13.2 Carboxyhemoglobin 1.0 O2 Delivery Device Ventilator Vent Setting Prvc/ac Inspired O2 40 Critical Value No Sodium Potassium Chloride Carbon Dioxide Anion Gap BUN Creatinine Estimated GFR POC Glucose 237 H Random Glucose Calcium Prot Corrected Calcium Total Bilirubin AST ALT Alkaline Phosphatase Total Protein Albumin Microbiology 02/07/18 03:59 Blood - Peripheral Aerobic Blood Culture - Final Staphylococcus aureus 02/07/18 03:59 Blood - Peripheral Anaerobic Blood Culture - Preliminary No growth in 3 days 02/08/18 14:02 Blood - Peripheral Aerobic Blood Culture - Preliminary gram positive cocci 02/08/18 14:02 Blood - Peripheral Anaerobic Blood Culture - Preliminary No growth in 2 days 02/08/18 13:55 Blood - Peripheral Aerobic Blood Culture - Preliminary gram positive cocci 02/08/18 13:55 Blood - Peripheral Anaerobic Blood Culture - Preliminary No growth in 2 days 02/06/18 10:59 Blood - Peripheral Aerobic Blood Culture - Final Staphylococcus aureus 02/06/18 10:59 Blood - Peripheral Anaerobic Blood Culture - Preliminary No growth in 4 days 02/08/18 12:30 Catheter Tip - Central Venous Line Wound Culture - Final No growth in 48 hours Assessment and Plan (1) Anemia Status: Acute Code(s): D64.9 - Anemia, unspecified (2) Leukocytosis Status: Acute Code(s): D72.829 - Elevated white blood cell count, unspecified (3) Cholelithiasis Status: Acute Code(s): K80.20 - Calculus of gallbladder without cholecystitis without obstruction - Plan Assessment: - Elevated LFTs likely secondary to shocked liver in background of ETOH abuse LFTs from ER visit 01/26 AST-99 ALT-46 Alk phos-108 T bili-1.4 Returned on 02/02 AST-[id number] ALT-307 Alk phos-66 T bili-1.7 Pt found unresponsive at home with known history of ETOH abuse, on admission pt was in SVT with noted extreme hypotension and sleeve turner noted persistent hypotension and shock requiring Levo gtt. Unable to obtain history from pt because he is orally intubated, on sedation but awake. According to notes pt was drinking greater than a pint daily. Abdomen US (02/04) Prominent gallbladder with small stones and minimal gallbladder wall thickening. Patient is not tender over the gallbladder. Echogenic liver. Small right pleural effusion. CT abdomen and pelvis WO IV contrast (02/03) Moderate-sized right pleural effusion. Two calcifications in the expected region of the distal common bile duct or pancreatic head measuring 3 mm each. Bibasilar atelectasis and/or infiltrates which are slightly worse on the right than the left. Cardiomegaly. Left adrenal nodule measuring 2.6 x 2.3 cm consistent with probable adrenal adenoma or cyst. Small amount of ascites. Probable 2.3 cm right renal cyst. Liver Work up: Hepatitis panel negative. GARY negative. AAT-433 Ceruloplasmin-69 AFP-0.8 Iron-30 TIBC-126 %Sat-23.8 Ferritin-2246 - Thrombocytopenia- secondary to liver disease - Hypoalbuminemia- albumin 1.5 - pt on replacement - ANIBAL, rhabdomyolysis, obstructive uropathy, BPH- Pt on HD- nephorlogy following (02/10) T bili and alk phos have increased and fluctuated some since admission. Give CT findings of calcifications in expected region on CBD or pancreatic head, pt would likely benefit from MRCP when stable to transport. Plan HFE Serum copper MRCP WO contrast Albumin replacement Monitor LFTS Continue TF- currently NPO for possible EMILY today Prognosis guarded Further recommendations based on clinical course and results of above Patient has been seen and examined by myself and Dr. Galvin and this note is written on her behalf
--- NOTE | 2018-02-10 13:27 | P.PNID ---
Subjective Remarks: ID COVERAGE Most of the history of optimal review of medical records. is a 57-year-old male with very strong current history of alcohol abuse. His brother and [id number] were in the room report that he drinks greater than a pint for at least 25 years. Patient is a resident of [place] and reportedly moved here to be close to his brother. [facility]. Patient's brother reports that they often go to patient's house for safety checks. The last time he was reportedly normal was 5 days prior to him coming to the hospital. When patient' s brother went to visit him on the day of admission patient was markedly obtunded and difficult to arouse and had some matting of his eyelids and brother called EMS reportedly. When patient was seen by EMS she was found to be significantly encephalopathic and there was a concern for airway protection and therefore he was intubated for acute hypoxemia and hypercarbia. Reportedly was also an SVT with a heart rate greater than 200. In the emergency department he was cardioverted and was hypotensive requiring pressors. Patient was admitted to the ICU under critical care team. Patient is currently on vasopressors Larry-Synephrine at 100 mics, he is also on a propofol drip for sedation. He is currently on a ventilator with AC 50% FiO2, PEEP of 5 not much respiratory secretions noted. He also has a right-sided chest tube which was placed when a large effusion was noted on the CT scan. Per description by RN there was a lot of yellow looking purulent material noted when the chest tube was placed. Urology has been consulted because Ennis was difficult to be placed. Patient does not have much in terms of her urine output and is currently at 50 cc. GI is following patient as well. Sepsis workup was initiated on admission infectious diseases consulted for evaluation and management of septic shock secondary to possibly right-sided empyema. Overnight events reviewed with RN. Tmax 100 F Off pressors. Had HD y. Has an arterial line still in place. All blood cultures with staph aureus, MSSA Pleural fluid with staph aureus, MSSA Urine culture with MSSA Sputum with Pseudomonas, E coli and MSSA No generalized rash No diarrhea. No BM. Antibiotics: Cefepime IV Flagyl IV Oxacillin IV Teflaro IV Lines: Line sites ok Past Medical History: Diabetes Hypertension Significant EtOH history some shoulder surgery Allergies/Adverse Reactions: Allergies lisinopril Allergy (Severe, Verified 02/05/18 06:22) airway edema Sulfa (Sulfonamide Antibiotics) Allergy (Severe, Verified 02/05/18 06:22) Edema, Localized AIRWAY EDEMA Objective Vital Signs 02/09/18 14:00 02/09/18 14:04 02/09/18 15:29 Temperature Pulse Rate 162 H 49 L Respiratory Rate 24 16 Blood Pressure Pulse Oximetry 95 02/09/18 16:00 02/09/18 16:45 02/09/18 18:00 Temperature 99.0 F Pulse Rate 169 H 154 H Respiratory Rate 18 17 Blood Pressure 111/66 Pulse Oximetry 97 97 02/09/18 19:00 02/09/18 20:00 02/09/18 20:41 Temperature 98.9 F Pulse Rate 149 H 146 H Respiratory Rate 18 18 18 Blood Pressure 110/64 103/57 L Pulse Oximetry 96 96 97 02/09/18 20:49 02/09/18 21:00 02/09/18 22:00 Temperature Pulse Rate 101 H 146 H 144 H Respiratory Rate 18 18 18 Blood Pressure 89/57 L 135/74 Pulse Oximetry 96 96 02/09/18 23:00 02/10/18 00:00 02/10/18 01:00 Temperature 99.2 F Pulse Rate 146 H 149 H 146 H Respiratory Rate 18 18 18 Blood Pressure 106/65 109/63 151/84 H Pulse Oximetry 97 97 96 02/10/18 01:06 02/10/18 01:07 02/10/18 02:00 Temperature Pulse Rate 101 H 147 H Respiratory Rate 21 23 18 Blood Pressure 130/78 Pulse Oximetry 95 96 02/10/18 03:00 02/10/18 04:00 02/10/18 04:45 Temperature 99.0 F Pulse Rate 150 H 150 H Respiratory Rate 18 18 18 Blood Pressure 99/58 L 104/63 Pulse Oximetry 97 97 97 02/10/18 04:58 02/10/18 05:00 02/10/18 06:00 Temperature Pulse Rate 100 H 148 H 148 H Respiratory Rate 18 18 18 Blood Pressure 106/72 104/64 Pulse Oximetry 97 97 02/10/18 07:00 02/10/18 08:00 02/10/18 09:17 Temperature 100.1 F H Pulse Rate 90 91 H 86 Respiratory Rate 18 18 22 Blood Pressure 104/55 L 111/60 Pulse Oximetry 98 91 L 97 02/10/18 10:00 02/10/18 13:13 Temperature Pulse Rate 83 Respiratory Rate 18 Blood Pressure Pulse Oximetry 96 Intake & Output 02/09/18 02/10/18 02/10/18 18:59 06:59 18:59 Intake Total 1304 / 1304 1073 / 1073 450 / 450 Output Total 2528 / 2528 0 / 0 Balance -1224 / -1224 1073 / 1073 450 / 450 Weight 106 kg Intake: IV 950 / 950 800 / 800 450 / 450 Diprivan 1000 mg/100 ml Inj 1, 0 / 0 100 / 100 000 mg In 100 ml @ 5 MCG/KG/MIN 2.85 mls/hr IV.CONT TITRATE PRN Rx#:[id number] fentaNYL 10 mcg/mL Premix Drip 250 / 250 250 / 250 2,500 mcg In 250 ml @ 50 MCG/HR 5 mls/hr IV.CONT TITRATE PRN Rx#:[id number] Flexbumin 25% Inj 100 ML @ 60 200 / 200 mls/hr IV.SIG WITH DIALYSIS LEROY Rx#:[id number] Cordarone Inj 450 MG In NS Inj 250 / 250 250 / 250 241 ML @ 0.5 MG/MIN 16.66 mls/ hr IV.SIG .Q15H1M LEROY Rx#: [id number] Maxipime Inj 2,000 MG In NS Inj 100 / 100 100 ML @ 200 mls/hr IV.SIG Q24H LEROY Rx#:[id number] Teflaro Inj 600 MG In NS Inj 100 / 100 100 / 100 100 ML @ 100 mls/hr IV.SIG Q8H LEROY Rx#:[id number] Prostaphlin Inj 2 GM In NS Inj 300 / 300 200 / 200 100 / 100 100 ML @ 200 mls/hr IV.SIG Q4H LEROY Rx#:[id number] Tube Feeding 354 / 354 273 / 273 Output: Hemodialysis Amount 2500 / 2500 Urine Amount (Catheter) 0 / 0 Coude 0 / 0 Chest Tube Drainage 0 / 0 #1 Right Anterior 0 / 0 02/07/18 03:59 Blood - Peripheral Aerobic Blood Culture - Final Staphylococcus aureus 02/07/18 03:59 Blood - Peripheral Anaerobic Blood Culture - Preliminary No growth in 3 days 02/08/18 14:02 Blood - Peripheral Aerobic Blood Culture - Preliminary gram positive cocci 02/08/18 14:02 Blood - Peripheral Anaerobic Blood Culture - Preliminary No growth in 2 days 02/08/18 13:55 Blood - Peripheral Aerobic Blood Culture - Preliminary gram positive cocci 02/08/18 13:55 Blood - Peripheral Anaerobic Blood Culture - Preliminary No growth in 2 days 02/06/18 10:59 Blood - Peripheral Aerobic Blood Culture - Final Staphylococcus aureus 02/06/18 10:59 Blood - Peripheral Anaerobic Blood Culture - Preliminary No growth in 4 days 02/08/18 12:30 Catheter Tip - Central Venous Line Wound Culture - Final No growth in 48 hours Lab - Hematology Results 02/09/18 02/09/18 02/10/18 05:14 10:08 09:30 WBC 9.4 8.8 5.8 RBC 2.94 L 2.72 L 2.38 L Hgb 8.9 L 8.1 L 7.2 L Hct 25.9 L 24.2 L 21.7 L MCV 88.2 88.9 91.0 MCH 30.1 29.8 30.4 MCHC 34.1 33.5 33.4 RDW 17.1 17.3 H 17.5 H Plt Count 39 L 37 L 51 L D MPV 9.9 9.7 10.3 Prelim Diff (Auto) Slide review pending Neut % (Auto) 93.8 H Lymph % (Auto) 3.2 L Mercer % (Auto) 2.5 Eos % (Auto) 0.1 Baso % (Auto) 0.4 Neut # (Auto) 8.2 H Lymph # (Auto) 0.3 L Mercer # (Auto) 0.2 Eos # (Auto) 0.0 Baso # (Auto) 0.0 WBC Differential . Diff Scan Auto diff confirmed Differential Comment . Toxic Granulation 1+ H Platelet Estimate Low L Platelet Morphology Normal Stomatocytes 2+ H 02/10/18 10:54 WBC RBC Hgb 7.0 L Hct 21.0 L MCV MCH MCHC RDW Plt Count MPV Prelim Diff (Auto) Neut % (Auto) Lymph % (Auto) Mercer % (Auto) Eos % (Auto) Baso % (Auto) Neut # (Auto) Lymph # (Auto) Mercer # (Auto) Eos # (Auto) Baso # (Auto) WBC Differential Diff Scan Differential Comment Toxic Granulation Platelet Estimate Platelet Morphology Stomatocytes Lab - Chemistry Results 02/08/18 02/08/18 02/09/18 16:09 20:53 05:14 Sodium 143 Potassium 4.1 Chloride 105 Carbon Dioxide 21.8 Anion Gap 16 H BUN 75 H Creatinine 4.90 H Estimated GFR 12 L POC Glucose 186 H 215 H Random Glucose 209 H Calcium 7.5 L Prot Corrected Calcium Total Bilirubin 7.4 H AST 86 H ALT 45 Alkaline Phosphatase 131 H Total Protein 5.5 L D Albumin 1.4 L 02/09/18 02/09/18 02/09/18 08:08 10:08 13:17 Sodium 144 Potassium 3.9 Chloride 105 Carbon Dioxide 23.6 Anion Gap 15 BUN 50 H Creatinine 3.30 H Estimated GFR 20 L POC Glucose 256 H 226 H Random Glucose 202 H Calcium 8.1 L Prot Corrected Calcium Total Bilirubin 7.7 H AST 74 H ALT 40 Alkaline Phosphatase 122 H Total Protein 6.0 L Albumin 2.3 L D 02/09/18 02/09/18 02/10/18 16:39 21:18 08:00 Sodium Potassium Chloride Carbon Dioxide Anion Gap BUN Creatinine Estimated GFR POC Glucose 261 H 254 H 256 H Random Glucose Calcium Prot Corrected Calcium Total Bilirubin AST ALT Alkaline Phosphatase Total Protein Albumin 02/10/18 02/10/18 09:30 11:48 Sodium 144 Potassium 4.1 Chloride 107 Carbon Dioxide 22.5 Anion Gap 15 BUN 73 H Creatinine 4.71 H Estimated GFR 13 L POC Glucose 237 H Random Glucose 234 H Calcium 7.1 L* D Prot Corrected Calcium 8.1 L Total Bilirubin 6.8 H AST 56 H ALT 32 Alkaline Phosphatase 156 H Total Protein 5.3 L D Albumin 1.5 L D Imaging: ITS Impressions Chest X-Ray 02/08/18 00:00 CONCLUSION: Stable chest. Vascular catheter in good position. Physical Exam: GENERAL: Sedated, on the vent, NAD SKIN: Cool and dry, no generalized rash HEAD: Atraumatic. Normocephalic. No temporal or scalp tenderness. EYES: Pupils equal round and reactive. Scleral icterus. No injection or drainage. No petechia ENT: Orally intubated NECK: Trachea midline. Supple, nontender, no meningeal signs. CARDIOVASCULAR: HS audible. RESPIRATORY: AE decreased in the bases R>L. Right side CT with serous fluid noted GASTROINTESTINAL: Abdomen distended, some grimacing during palpation MUSCULOSKELETAL: Extremities without clubbing, cyanosis. Septic emboli to feet noted. Has a large hemorrhagic bullous lesion on L palm NEUROLOGICAL: Sedated Psych could not be assessed IV line sites ok. Assessment and Plan - Plan MSSA sepsis, Septic Shock, on pressors Right side Pulm Empyema, MSSA Rule out endocarditis. Polymicrobial PNA ( PSAE, second GNR, Staph aureus) also likely aspiration in setting of alcoholism Cardiomegaly: ? alcohol related vs CAD. MSSA in urine. Acute resp failure on vent Acute oliguric renal failure: prerenal, sepsis. - on CVVHD Acute metabolic encephalopathy: sepsis, metabolic. Leukocytosis Thrombocytopenia: sepsis, no DIC RECOMMENDATION Continue IV Oxacillin for MSSA Continue IV Cefepime for PSAE and E coli Continue Teflaro IV (as second MSSA agent pending clearance of bacteremia) Repeat BC to document clearing Troy Aguirre discontinue arterial line as could be source of ongoing bacteremia as was present during bacteremic phase, not on pressors anymore. EMILY today possibly per cardiology. troy Vega palliative care: informed me patient family ok with EMILY. Follow cultures Follow EMILY results. Monitor progress D/W RN Prognosis guarded.
--- NOTE | 2018-02-10 13:31 | P.PN ---
Subjective Interval history: Patient remain on the vent. and sedated. Physical Exam Vital signs: Vital Signs 02/09/18 14:00 02/09/18 14:04 02/09/18 15:29 Temperature Pulse Rate 162 H 49 L Respiratory Rate 24 16 Blood Pressure Pulse Oximetry 95 02/09/18 16:00 02/09/18 16:45 02/09/18 18:00 Temperature 99.0 F Pulse Rate 169 H 154 H Respiratory Rate 18 17 Blood Pressure 111/66 Pulse Oximetry 97 97 02/09/18 19:00 02/09/18 20:00 02/09/18 20:41 Temperature 98.9 F Pulse Rate 149 H 146 H Respiratory Rate 18 18 18 Blood Pressure 110/64 103/57 L Pulse Oximetry 96 96 97 02/09/18 20:49 02/09/18 21:00 02/09/18 22:00 Temperature Pulse Rate 101 H 146 H 144 H Respiratory Rate 18 18 18 Blood Pressure 89/57 L 135/74 Pulse Oximetry 96 96 02/09/18 23:00 02/10/18 00:00 02/10/18 01:00 Temperature 99.2 F Pulse Rate 146 H 149 H 146 H Respiratory Rate 18 18 18 Blood Pressure 106/65 109/63 151/84 H Pulse Oximetry 97 97 96 02/10/18 01:06 02/10/18 01:07 02/10/18 02:00 Temperature Pulse Rate 101 H 147 H Respiratory Rate 21 23 18 Blood Pressure 130/78 Pulse Oximetry 95 96 02/10/18 03:00 02/10/18 04:00 02/10/18 04:45 Temperature 99.0 F Pulse Rate 150 H 150 H Respiratory Rate 18 18 18 Blood Pressure 99/58 L 104/63 Pulse Oximetry 97 97 97 02/10/18 04:58 02/10/18 05:00 02/10/18 06:00 Temperature Pulse Rate 100 H 148 H 148 H Respiratory Rate 18 18 18 Blood Pressure 106/72 104/64 Pulse Oximetry 97 97 02/10/18 07:00 02/10/18 08:00 02/10/18 09:17 Temperature 100.1 F H Pulse Rate 90 91 H 86 Respiratory Rate 18 18 22 Blood Pressure 104/55 L 111/60 Pulse Oximetry 98 91 L 97 02/10/18 10:00 02/10/18 13:13 Temperature Pulse Rate 83 Respiratory Rate 18 Blood Pressure Pulse Oximetry 96 Intake & Output 02/09/18 02/10/18 02/10/18 18:59 06:59 18:59 Intake Total 1304 / 1304 1073 / 1073 450 / 450 Output Total 2528 / 2528 0 / 0 Balance -1224 / -1224 1073 / 1073 450 / 450 Weight 106 kg Intake: IV 950 / 950 800 / 800 450 / 450 Diprivan 1000 mg/100 ml Inj 1, 0 / 0 100 / 100 000 mg In 100 ml @ 5 MCG/KG/MIN 2.85 mls/hr IV.CONT TITRATE PRN Rx#:[id number] fentaNYL 10 mcg/mL Premix Drip 250 / 250 250 / 250 2,500 mcg In 250 ml @ 50 MCG/HR 5 mls/hr IV.CONT TITRATE PRN Rx#:[id number] Flexbumin 25% Inj 100 ML @ 60 200 / 200 mls/hr IV.SIG WITH DIALYSIS LEROY Rx#:[id number] Cordarone Inj 450 MG In NS Inj 250 / 250 250 / 250 241 ML @ 0.5 MG/MIN 16.66 mls/ hr IV.SIG .Q15H1M LEROY Rx#: [id number] Maxipime Inj 2,000 MG In NS Inj 100 / 100 100 ML @ 200 mls/hr IV.SIG Q24H LEROY Rx#:[id number] Teflaro Inj 600 MG In NS Inj 100 / 100 100 / 100 100 ML @ 100 mls/hr IV.SIG Q8H LEROY Rx#:[id number] Prostaphlin Inj 2 GM In NS Inj 300 / 300 200 / 200 100 / 100 100 ML @ 200 mls/hr IV.SIG Q4H LEROY Rx#:[id number] Tube Feeding 354 / 354 273 / 273 Output: Hemodialysis Amount 2500 / 2500 Urine Amount (Catheter) 0 / 0 Coude 0 / 0 Chest Tube Drainage 0 / 0 #1 Right Anterior 0 / 0 Narrative: Intubated and sedated. - Constitutional moderate distress - Routine HEENT Exam Head: Present: normocephalic Eye: Present: EOMI ENT: Present: mucous membranes moist - Routine Neck Exam Present: supple - Routine Cardiovascular Exam Present: S1, S2 - Routine Abdominal Exam Present: soft, normoactive bowel sounds - Routine Neurological Exam Sedated. - Urinary Catheter Management Coude Cath placed during this visit: yes Reason for continuing: Hourly intake/output Insertion date: 02/02/18 Results - Labs CBC & Chem 7: 02/10/18 10:54 02/10/18 09:30 Laboratory Results - last 24 hr 02/09/18 02/09/18 02/10/18 16:39 21:18 08:00 WBC RBC Hgb Hct MCV MCH MCHC RDW Plt Count MPV Puncture Site Patient Temperature O2 Saturation ABG pH ABG pCO2 ABG pO2 ABG HCO3 ABG O2 Content ABG Base Excess ABG Methemoglobin Hemoglobin Carboxyhemoglobin O2 Delivery Device Vent Setting Inspired O2 Critical Value Sodium Potassium Chloride Carbon Dioxide Anion Gap BUN Creatinine Estimated GFR POC Glucose 261 H 254 H 256 H Random Glucose Calcium Prot Corrected Calcium Total Bilirubin AST ALT Alkaline Phosphatase Total Protein Albumin 02/10/18 02/10/18 02/10/18 09:30 09:30 09:58 WBC 5.8 RBC 2.38 L Hgb 7.2 L Hct 21.7 L MCV 91.0 MCH 30.4 MCHC 33.4 RDW 17.5 H Plt Count 51 L D MPV 10.3 Puncture Site Art line Patient Temperature 98.6 O2 Saturation 92 ABG pH 7.48 H ABG pCO2 30 L ABG pO2 80 ABG HCO3 22 ABG O2 Content 17.2 ABG Base Excess -1.4 ABG Methemoglobin 1.6 Hemoglobin 13.2 Carboxyhemoglobin 1.0 O2 Delivery Device Ventilator Vent Setting Prvc/ac Inspired O2 40 Critical Value No Sodium 144 Potassium 4.1 Chloride 107 Carbon Dioxide 22.5 Anion Gap 15 BUN 73 H Creatinine 4.71 H Estimated GFR 13 L POC Glucose Random Glucose 234 H Calcium 7.1 L* D Prot Corrected Calcium 8.1 L Total Bilirubin 6.8 H AST 56 H ALT 32 Alkaline Phosphatase 156 H Total Protein 5.3 L D Albumin 1.5 L D 02/10/18 02/10/18 10:54 11:48 WBC RBC Hgb 7.0 L Hct 21.0 L MCV MCH MCHC RDW Plt Count MPV Puncture Site Patient Temperature O2 Saturation ABG pH ABG pCO2 ABG pO2 ABG HCO3 ABG O2 Content ABG Base Excess ABG Methemoglobin Hemoglobin Carboxyhemoglobin O2 Delivery Device Vent Setting Inspired O2 Critical Value Sodium Potassium Chloride Carbon Dioxide Anion Gap BUN Creatinine Estimated GFR POC Glucose 237 H Random Glucose Calcium Prot Corrected Calcium Total Bilirubin AST ALT Alkaline Phosphatase Total Protein Albumin Microbiology 02/07/18 03:59 Blood - Peripheral Aerobic Blood Culture - Final Staphylococcus aureus 02/07/18 03:59 Blood - Peripheral Anaerobic Blood Culture - Preliminary No growth in 3 days 02/08/18 14:02 Blood - Peripheral Aerobic Blood Culture - Preliminary gram positive cocci 02/08/18 14:02 Blood - Peripheral Anaerobic Blood Culture - Preliminary No growth in 2 days 02/08/18 13:55 Blood - Peripheral Aerobic Blood Culture - Preliminary gram positive cocci 02/08/18 13:55 Blood - Peripheral Anaerobic Blood Culture - Preliminary No growth in 2 days 02/06/18 10:59 Blood - Peripheral Aerobic Blood Culture - Final Staphylococcus aureus 02/06/18 10:59 Blood - Peripheral Anaerobic Blood Culture - Preliminary No growth in 4 days 02/08/18 12:30 Catheter Tip - Central Venous Line Wound Culture - Final No growth in 48 hours Assessment and Plan - Assessment (1) Acute renal failure (ARF) Code(s): N17.9 - Acute kidney failure, unspecified Status: Acute (2) Sepsis Code(s): A41.9 - Sepsis, unspecified organism Status: Acute (3) Respiratory failure Code(s): J96.90 - Respiratory failure, unspecified, unspecified whether with hypoxia or hypercapnia Status: Acute (4) Hypotension Code(s): I95.9 - Hypotension, unspecified Status: Acute - Plan (1) Acute renal failure ICD Codes: N17.9 - Acute kidney failure, unspecified Plan: Patient has no urine output Cr higher CRRT started on 02/04. BP low normal off vasopressor Large pleural effusion was drained He has gram-negative in sputum Ceftaroline/Zerbaxa ID following Vascath was removed, and re inserted. HD done yesterday, urine out put is minimal. Continue antibiotics. Watch for renal recovery. Now getting EMILY, has MSSA in the culture. (2) Sepsis ICD Codes: A41.9 - Sepsis, unspecified organism Plan: ID following (3) Rhabdomyolysis ICD Codes: M62.82 - Rhabdomyolysis Plan: On bicarbonate drip (4) UTI (lower urinary tract infection) ICD Codes: N39.0 - Urinary tract infection, site not specified Plan: Patient has staph infection and ID is following (5) Pneumonia ICD Codes: J18.9 - Pneumonia, unspecified organism Plan: Pleural effusion drained
--- NOTE | 2018-02-10 13:57 | P.PN ---
Physical Exam Vital signs: Vital Signs 02/09/18 14:00 02/09/18 14:04 02/09/18 15:29 Temperature Pulse Rate 162 H 49 L Respiratory Rate 24 16 Blood Pressure Pulse Oximetry 95 02/09/18 16:00 02/09/18 16:45 02/09/18 18:00 Temperature 99.0 F Pulse Rate 169 H 154 H Respiratory Rate 18 17 Blood Pressure 111/66 Pulse Oximetry 97 97 02/09/18 19:00 02/09/18 20:00 02/09/18 20:41 Temperature 98.9 F Pulse Rate 149 H 146 H Respiratory Rate 18 18 18 Blood Pressure 110/64 103/57 L Pulse Oximetry 96 96 97 02/09/18 20:49 02/09/18 21:00 02/09/18 22:00 Temperature Pulse Rate 101 H 146 H 144 H Respiratory Rate 18 18 18 Blood Pressure 89/57 L 135/74 Pulse Oximetry 96 96 02/09/18 23:00 02/10/18 00:00 02/10/18 01:00 Temperature 99.2 F Pulse Rate 146 H 149 H 146 H Respiratory Rate 18 18 18 Blood Pressure 106/65 109/63 151/84 H Pulse Oximetry 97 97 96 02/10/18 01:06 02/10/18 01:07 02/10/18 02:00 Temperature Pulse Rate 101 H 147 H Respiratory Rate 21 23 18 Blood Pressure 130/78 Pulse Oximetry 95 96 02/10/18 03:00 02/10/18 04:00 02/10/18 04:45 Temperature 99.0 F Pulse Rate 150 H 150 H Respiratory Rate 18 18 18 Blood Pressure 99/58 L 104/63 Pulse Oximetry 97 97 97 02/10/18 04:58 02/10/18 05:00 02/10/18 06:00 Temperature Pulse Rate 100 H 148 H 148 H Respiratory Rate 18 18 18 Blood Pressure 106/72 104/64 Pulse Oximetry 97 97 02/10/18 07:00 02/10/18 08:00 02/10/18 09:17 Temperature 100.1 F H Pulse Rate 90 91 H 86 Respiratory Rate 18 18 22 Blood Pressure 104/55 L 111/60 Pulse Oximetry 98 91 L 97 02/10/18 10:00 02/10/18 13:13 Temperature Pulse Rate 83 Respiratory Rate 18 Blood Pressure Pulse Oximetry 96 Intake & Output 02/09/18 02/10/18 02/10/18 18:59 06:59 18:59 Intake Total 1304 / 1304 1073 / 1073 450 / 450 Output Total 2528 / 2528 0 / 0 Balance -1224 / -1224 1073 / 1073 450 / 450 Weight 233 lb 11.04 oz Intake: IV 950 / 950 800 / 800 450 / 450 Diprivan 1000 mg/100 ml Inj 1, 0 / 0 100 / 100 000 mg In 100 ml @ 5 MCG/KG/MIN 2.85 mls/hr IV.CONT TITRATE PRN Rx#:[id number] fentaNYL 10 mcg/mL Premix Drip 250 / 250 250 / 250 2,500 mcg In 250 ml @ 50 MCG/HR 5 mls/hr IV.CONT TITRATE PRN Rx#:[id number] Flexbumin 25% Inj 100 ML @ 60 200 / 200 mls/hr IV.SIG WITH DIALYSIS LEROY Rx#:[id number] Cordarone Inj 450 MG In NS Inj 250 / 250 250 / 250 241 ML @ 0.5 MG/MIN 16.66 mls/ hr IV.SIG .Q15H1M LEROY Rx#: [id number] Maxipime Inj 2,000 MG In NS Inj 100 / 100 100 ML @ 200 mls/hr IV.SIG Q24H LEROY Rx#:[id number] Teflaro Inj 600 MG In NS Inj 100 / 100 100 / 100 100 ML @ 100 mls/hr IV.SIG Q8H LEROY Rx#:[id number] Prostaphlin Inj 2 GM In NS Inj 300 / 300 200 / 200 100 / 100 100 ML @ 200 mls/hr IV.SIG Q4H LEROY Rx#:[id number] Tube Feeding 354 / 354 273 / 273 Output: Hemodialysis Amount 2500 / 2500 Urine Amount (Catheter) 0 / 0 Coude 0 / 0 Chest Tube Drainage 0 / 0 #1 Right Anterior 0 / 0 Narrative: Intubated and agitated. GENERAL: In NAD. SKIN: Warm and dry. NECK: JVD normal - less than or equal to 5 cm H20. CARDIOVASCULAR: Regular rate and rhythm without murmurs, gallops or rubs. RESPIRATORY: Normal breath sounds - equal bilaterally. No accessory muscle use. No wheezes, rales or rubs. PERIPHERY: No cyanosis, mild edema. - Urinary Catheter Management Coude Cath placed during this visit: yes Reason for continuing: Hourly intake/output Insertion date: 02/02/18 Results - Labs CBC & Chem 7: 02/10/18 10:54 02/10/18 09:30 Laboratory Results - last 24 hr 02/09/18 02/09/18 02/10/18 16:39 21:18 08:00 WBC RBC Hgb Hct MCV MCH MCHC RDW Plt Count MPV Puncture Site Patient Temperature O2 Saturation ABG pH ABG pCO2 ABG pO2 ABG HCO3 ABG O2 Content ABG Base Excess ABG Methemoglobin Hemoglobin Carboxyhemoglobin O2 Delivery Device Vent Setting Inspired O2 Critical Value Sodium Potassium Chloride Carbon Dioxide Anion Gap BUN Creatinine Estimated GFR POC Glucose 261 H 254 H 256 H Random Glucose Calcium Prot Corrected Calcium Total Bilirubin AST ALT Alkaline Phosphatase Total Protein Albumin 02/10/18 02/10/18 02/10/18 09:30 09:30 09:58 WBC 5.8 RBC 2.38 L Hgb 7.2 L Hct 21.7 L MCV 91.0 MCH 30.4 MCHC 33.4 RDW 17.5 H Plt Count 51 L D MPV 10.3 Puncture Site Art line Patient Temperature 98.6 O2 Saturation 92 ABG pH 7.48 H ABG pCO2 30 L ABG pO2 80 ABG HCO3 22 ABG O2 Content 17.2 ABG Base Excess -1.4 ABG Methemoglobin 1.6 Hemoglobin 13.2 Carboxyhemoglobin 1.0 O2 Delivery Device Ventilator Vent Setting Prvc/ac Inspired O2 40 Critical Value No Sodium 144 Potassium 4.1 Chloride 107 Carbon Dioxide 22.5 Anion Gap 15 BUN 73 H Creatinine 4.71 H Estimated GFR 13 L POC Glucose Random Glucose 234 H Calcium 7.1 L* D Prot Corrected Calcium 8.1 L Total Bilirubin 6.8 H AST 56 H ALT 32 Alkaline Phosphatase 156 H Total Protein 5.3 L D Albumin 1.5 L D 02/10/18 02/10/18 10:54 11:48 WBC RBC Hgb 7.0 L Hct 21.0 L MCV MCH MCHC RDW Plt Count MPV Puncture Site Patient Temperature O2 Saturation ABG pH ABG pCO2 ABG pO2 ABG HCO3 ABG O2 Content ABG Base Excess ABG Methemoglobin Hemoglobin Carboxyhemoglobin O2 Delivery Device Vent Setting Inspired O2 Critical Value Sodium Potassium Chloride Carbon Dioxide Anion Gap BUN Creatinine Estimated GFR POC Glucose 237 H Random Glucose Calcium Prot Corrected Calcium Total Bilirubin AST ALT Alkaline Phosphatase Total Protein Albumin Microbiology 02/07/18 03:59 Blood - Peripheral Aerobic Blood Culture - Final Staphylococcus aureus 02/07/18 03:59 Blood - Peripheral Anaerobic Blood Culture - Preliminary No growth in 3 days 02/08/18 14:02 Blood - Peripheral Aerobic Blood Culture - Preliminary gram positive cocci 02/08/18 14:02 Blood - Peripheral Anaerobic Blood Culture - Preliminary No growth in 2 days 02/08/18 13:55 Blood - Peripheral Aerobic Blood Culture - Preliminary gram positive cocci 02/08/18 13:55 Blood - Peripheral Anaerobic Blood Culture - Preliminary No growth in 2 days 02/06/18 10:59 Blood - Peripheral Aerobic Blood Culture - Final Staphylococcus aureus 02/06/18 10:59 Blood - Peripheral Anaerobic Blood Culture - Preliminary No growth in 4 days 02/08/18 12:30 Catheter Tip - Central Venous Line Wound Culture - Final No growth in 48 hours Assessment and Plan - Assessment (1) Encephalopathy Code(s): G93.40 - Encephalopathy, unspecified Status: Acute (2) Septic shock Code(s): A41.9 - Sepsis, unspecified organism; R65.21 - Severe sepsis with septic shock Status: Acute (3) Atrial flutter Code(s): I48.92 - Unspecified atrial flutter Status: Acute (4) ANIBAL (acute kidney injury) Code(s): N17.9 - Acute kidney failure, unspecified Status: Acute (5) Respiratory failure Code(s): J96.90 - Respiratory failure, unspecified, unspecified whether with hypoxia or hypercapnia Status: Acute - Plan Continue ICU care. Continue abx tx as per ID. EMILY today to evaluate for endocarditis. Wean vent as tolerated.
[2018-02-10] MEDS ORDERED: Dextrose 50% in Water 50 ML Vial IV.PUSH PRN (14:22)
--- NOTE | 2018-02-10 14:36 | XR ---
EXAM DATE: 02/10/2018 2:29 PM EDT AGE/SEX: 57 years / Male INDICATIONS: Shortness of breath. CLINICAL DATA: This is the patient's initial encounter. Patient reports that signs and symptoms have been present for 3 days and indicates a pain score of Nonresponsive. MEDICAL/SURGICAL HISTORY: Diabetes mellitus type II. Hypertension. None. COMPARISON: [facility], CHEST 1V SINGLE AP, 02/08/2018. . FINDINGS: The support devices remain in place. There is no evidence of pneumothorax. There is a small right-claudia ed chest tube remaining in place. There continue to be bilateral pulmonary infiltrates, right greater than left. However, this pattern is not significantly changed compared to the prior study. The heart size is stable. The bony structures are stable. CONCLUSION: Stable examination compared to the prior study. Electronically signed by: Khang Arguello MD 02/10/2018 2:35 PM EDT
[2018-02-10] MEDS: Insulin NovoLOG Aspart Correctional Sugar Inj SQ SCH (18:11)
[2018-02-10] MEDS: dilTIAZem 60 MG Tablet PO SCH (22:51)
--- NOTE | 2018-02-10 22:54 | MR ---
EXAM DATE: 02/10/2018 10:34 PM EDT AGE/SEX: 57 years / Male INDICATIONS: . Elevated lfts, calcification possibly in CBD on CT CLINICAL DATA: This is the patient's initial encounter. Patient reports that signs and symptoms have been present for 2 days and indicates a pain score of Nonresponsive. MEDICAL/SURGICAL HISTORY: Diabetes mellitus type II. Hypertension. Vented. . Shoulder sx, Annie k sx, Right hand sx. COMPARISON: [facility] [place], CT ABDOMEN & PELVIS W/O CONTRAST, 02/03/2018. . TECHNIQUE: Multiplanar, multisequence images of the abdomen were obtained without contrast including dedicated cholangiographic images. FINDINGS: Liver: The liver is homogeneous and normal in signal intensity with no focal defects. Intrahepatic Bile Ducts: There is no intrahepatic biliary ductal dilatation. Common Bile Duct: The common bile duct is normal in caliber No filling defects or obstructing lesio ns are identified. Gallbladder: Mildly distended with minimal sludge Pancreas: The pancreas appears normal in signal with no focal parenchymal abnormalities. The pancrea tic duct is normal in caliber with no filling defects, or obstructing lesions identified. Nonspecific slightly greater than 2 cm left adrenal mass CONCLUSION: No evidence of biliary obstruction Electronically signed by: Vijay Verdugo MD 02/10/2018 10:53 PM EDT
[2018-02-11] MEDS: Amiodarone Inj 450 MG in Sodium Chlor 0.9% Inj 241 ML IV.SIG SCH ×2 (00:08→22:28)
[2018-02-11] MEDS: Propofol 1000 mg/100 ml Inj 1,000 MG/100 ML BOTTLE IV.CONT PRN (01:13)
[2018-02-11] MEDS: Insulin NovoLOG Aspart Correctional Sugar Inj SQ SCH ×3 (06:21→18:23)
[2018-02-11] MEDS: fentaNYL 10 mcg/mL Premix Drip 2,500 MCG/250 ML BAG IV.CONT PRN (06:23)
[2018-02-11] MEDS: Albumin Human 25% Inj 100 ML IV.SIG SCH ×2 (07:08→07:45)
[2018-02-11] MEDS: Heparin 10,000 UNITS/10 ML Vial (for IV use) OTHER PRN (07:08)
--- NOTE | 2018-02-11 09:34 | P.PNCC ---
Subjective Subjective Remarks/Hospital Course: 02/05: This is a 57-year-old male with a strong history of EtOH abuse, his family states that he drinks greater than a pint today times at least 25 years. He was found unresponsive at home this afternoon. The last time he was seen normal was 5 days ago. He was brought in by EMS and was severely altered. He was intubated for acute hypoxemia and hypercarbia. He was also in a supraventricular tachycardia with a heart rate greater than 200. In the emergency department he was electrically cardioverted 2 without success, and given 5 mill grams of IV Lopressor which caused severe hypotension, but did not resolve his tachycardia. Immediately upon being notified went down to the emergency department evaluated the patient and transported him up to the intensive care unit. Once in the intensive care unit, I placed arterial and central lines, see separate procedure note for details. I loaded the patient with 150 mg of amiodarone and 2 g magnesium. In addition, the patient has a blood gas with severe metabolic acidosis and a pH less than 7.2. I gave 4 A of sodium bicarbonate as well as 1 g of calcium chloride for severe hypocalcemia. After these interventions, the patient spontaneously converted to a sinus tachycardia. The patient was placed on norepinephrine for persistent hypotension and shock. The emergency department attempted to place a 16 Gabonese Ennis catheter and was unsuccessful with this. I attempted an additional time to place both an 18 Gabonese coud catheter as well as a 24 Gabonese three-way catheter, both which were unsuccessful and met significant resistance at approximately 10-12 cm. I consulted urology and discussed the case with Dr. Worley who agrees to Place Ennis catheter tonight for emergent urine output monitoring while in shock. The patient remains altered no additional information is available from patient. ROS is unobtainable. 02/03 Patient is intubated on Levoped 5 mics, Amio and bicarb drips. 16Fr catheter was placed by Urology. 02/04 Patient remains intubated and sedated with Diprivan. Off Levophed on Neosyn 60mics. Right sided pig tail catheter placed yesterday with removal 1100ml cloudy fluid fluid analysis c/w empyema. Renal function declining with Cr: 5.87 and UOP 120ml in 12 hrs. Tmax 102.2 02/05: remains intubated and critically ill. on CVVHD. per RN, net -300/hr on CVVHD. off vasopressors this AM. 02/06: Remains sedated, orally intubated on mechanical ventilation. CRRT clotted off last night. Nephrology planning HD 02/07 Patient remains intubated and sedated with Fentanyl infusion. Off Neosyn remains on Vasopressin and Amio drip. T;102 last night. 02/08 No events overnight. Intubated and on Fentanyl infusion for sedation. Afebrile. Off all pressors. s/p HD yesterday. On Amio drip. 02/09 Patient remains sedated and intubated. For HD today. On Amio drip, T:101.3 last night. 02/10 No events overnight. Sedated with Diprivan and Fentanyl drips. Afebrile. For possible EMILY today. 02/11 Patient remains intubated and sedated. Tmax 100.1. MRCP yesterday no biliary obstruction. On Amio drip. Objective Vital Signs / I&O: Vital Signs 02/10/18 10:00 02/10/18 12:00 02/10/18 13:13 Temperature 99.5 F Pulse Rate 83 80 Respiratory Rate 18 18 Blood Pressure 99/58 L Pulse Oximetry 97 96 02/10/18 14:00 02/10/18 15:15 02/10/18 16:00 Temperature 99 F Pulse Rate 139 H 82 Respiratory Rate 18 18 Blood Pressure 102/51 L Pulse Oximetry 98 98 02/10/18 17:45 02/10/18 17:47 02/10/18 17:50 Temperature Pulse Rate 74 73 73 Respiratory Rate 0 L 0 L 0 L Blood Pressure 95/54 L 95/56 L 95/55 L Pulse Oximetry 97 98 97 02/10/18 17:52 02/10/18 17:55 02/10/18 17:57 Temperature Pulse Rate 74 73 73 Respiratory Rate 0 L 0 L 0 L Blood Pressure 95/56 L 95/55 L 96/55 L Pulse Oximetry 98 97 97 02/10/18 18:00 02/10/18 18:02 02/10/18 18:05 Temperature Pulse Rate 73 73 73 Respiratory Rate 0 L 0 L 0 L Blood Pressure 95/53 L 96/54 L 96/54 L Pulse Oximetry 98 98 98 02/10/18 18:07 02/10/18 18:10 02/10/18 18:12 Temperature Pulse Rate 73 73 73 Respiratory Rate 0 L 0 L 0 L Blood Pressure 98/54 L 98/54 L 96/53 L Pulse Oximetry 98 97 97 02/10/18 18:15 02/10/18 18:18 02/10/18 18:20 Temperature Pulse Rate 73 76 76 Respiratory Rate 0 L 11 L 10 L Blood Pressure 96/55 L 104/62 111/61 Pulse Oximetry 97 94 L 96 02/10/18 18:22 02/10/18 18:25 02/10/18 18:28 Temperature Pulse Rate 76 76 76 Respiratory Rate 11 L 14 10 L Blood Pressure 116/59 L 110/61 114/60 Pulse Oximetry 97 97 97 02/10/18 18:30 02/10/18 18:33 02/10/18 18:35 Temperature Pulse Rate 77 76 76 Respiratory Rate 15 14 18 Blood Pressure 105/61 105/55 L 113/55 L Pulse Oximetry 97 97 97 02/10/18 18:38 02/10/18 18:40 02/10/18 19:00 Temperature Pulse Rate 76 76 73 Respiratory Rate 14 15 18 Blood Pressure 114/55 L 111/59 L Pulse Oximetry 96 96 98 02/10/18 20:00 02/10/18 20:40 02/10/18 20:43 Temperature Pulse Rate 71 69 Respiratory Rate 12 19 18 Blood Pressure Pulse Oximetry 97 97 02/10/18 20:49 02/10/18 20:54 02/10/18 21:00 Temperature Pulse Rate 71 72 69 Respiratory Rate 9 L 4 L 13 Blood Pressure 107/62 111/59 L 97/52 L Pulse Oximetry 99 98 100 02/10/18 22:05 02/10/18 22:06 02/10/18 23:00 Temperature Pulse Rate 77 76 72 Respiratory Rate 17 37 H 18 Blood Pressure 104/58 L Pulse Oximetry 99 95 02/10/18 23:34 02/11/18 00:00 02/11/18 00:11 Temperature 99.0 F Pulse Rate 71 70 73 Respiratory Rate 18 18 20 Blood Pressure 91/52 L 92/54 L 107/62 Pulse Oximetry 95 97 97 02/11/18 00:31 02/11/18 01:38 02/11/18 02:00 Temperature Pulse Rate 75 69 Respiratory Rate 19 20 Blood Pressure 114/72 Pulse Oximetry 95 02/11/18 04:00 02/11/18 04:02 02/11/18 06:00 Temperature Pulse Rate 69 69 71 Respiratory Rate 18 Blood Pressure Pulse Oximetry 96 Intake & Output 02/10/18 02/11/18 02/11/18 18:59 06:59 18:59 Intake Total 1000 / 1000 970 / 970 200 / 200 Output Total 0 / 0 0 / 0 Balance 1000 / 1000 970 / 970 200 / 200 Weight 107 kg Intake: IV 1000 / 1000 970 / 970 200 / 200 Diprivan 1000 mg/100 ml Inj 1, 100 / 100 170 / 170 000 mg In 100 ml @ 5 MCG/KG/MIN 2.85 mls/hr IV.CONT TITRATE PRN Rx#:[id number] fentaNYL 10 mcg/mL Premix Drip 250 / 250 500 / 500 2,500 mcg In 250 ml @ 50 MCG/HR 5 mls/hr IV.CONT TITRATE PRN Rx#:[id number] Flexbumin 25% Inj 100 ML @ 60 200 / 200 mls/hr IV.SIG WITH DIALYSIS LEROY Rx#:[id number] Cordarone Inj 450 MG In NS Inj 250 / 250 241 ML @ 0.5 MG/MIN 16.66 mls/ hr IV.SIG .Q15H1M LEROY Rx#: [id number] Teflaro Inj 600 MG In NS Inj 100 / 100 100 ML @ 100 mls/hr IV.SIG Q8H LEROY Rx#:[id number] Prostaphlin Inj 2 GM In NS Inj 300 / 300 300 / 300 100 ML @ 200 mls/hr IV.SIG Q4H LEROY Rx#:[id number] Tube Feeding 0 / 0 Output: Urine Amount (Catheter) 0 / 0 0 / 0 Coude 0 / 0 0 / 0 Chest Tube Drainage 0 / 0 #1 Right Anterior 0 / 0 Other: # Bowel Movements 0 Result Diagrams: 02/10/18 17:20 02/10/18 09:30 Objective Remarks: GENERAL: Patient is 57 yo intubated and sedated. SKIN: Warm and dry. HEAD: Normocephalic. EYES: No scleral icterus. No injection or drainage. NECK: Supple, trachea midline. No JVD. CARDIOVASCULAR: Regular rate and rhythm. sinus. RESPIRATORY: Breath sounds equal bilaterally. No accessory muscle use. GASTROINTESTINAL: Abdomen soft, non-tender, nondistended. MUSCULOSKELETAL: No cyanosis, or edema. Neuro: Intubated, sedated Assessment and Plan - Assessment and Plan Plan: A/P Plan by systems: Neurologic: Acute metabolic encephalopathy etoh abuse Likely secondary to EtOH abuse Monitor neuro status, on Thiamine/MVI/ On Fentanyl/Diprivan infusion for sedation. Daily sedation vacation Place on Precedex drip to facilitate with weaning trials. CT brain : No acute process on 02/02 EEG: Diffuse encephalopathy Respiratory: Acute hypoxic and hypercarbic respiratory failure Right sided empyema Continue with vent support keep sats >92% Bronchodilates, ICU vent bundle, SBT daily as marquez. s/p right pigtail catheter placement 02/03 Pleural fluid analysis c/w empyema, monitor CT drainage. CXR yesterday unchanged in b/l pulm infiltrates Cardiovascular: Mixed hypovolemic and septic shock Atrial fibrillation with rapid ventricular response Monitor HR and BP keep MAP>65mmHg On Amio drip, Cardizem 60mg QID Status post 5 L crystalloid resuscitation in the emergency department Lactic acid is trending down Echo showed EF 60-65%, no RWMA s/p EMILY 02/10 : No vegetations, unremarkable Renal: Acute kidney injury-severe Acute rhabdomyolysis Obstructive uropathy BPH Monitor renal function, I/O's, avoid nephrotoxins Urology is following- s/p 16Fr Ennis catheter placement Renal is following- Dr. Dinh. HD per renal FEN/GI: Elevated LFT's with hyperbilirubinemia Acute protein calorie malnutrition: S Resume tube feeds ( Nepro) @ 40ml/hr on hold Ammonia level <10 on 02/02 Hepatitis profile: Non reactive, GI is following MRCP 02/10: No biliary obstruction. Bowel regimen with Lactulose, Colace and Senna. Heme/ID: Coagulopathy, probably secondary to end-stage liver disease Thrombocytopenia, secondary to shock Leukopenia, secondary septic shock On Teflaro, Cefepime, Oxacillin per ID Monitor for signs of infections ( Fever, WBC) follow up on cultures on BC from 02/08- NGTD 02/08 BC GPC , staph bacteremia 02/02 Sputum cx: GNR 02/02 Urine cx: Staph Aureus 02/03 BC: GPC 08/12 bottles 02/03 Fluid cx: NGT HIV ab: non reactive Monitor CBC, coags, s/p transfusion 1u PLT pheresis 02/08 Endocrine: Hyperglycemia of critical illness -- SSI, TSH 1.6 Prophylaxis: GI Prophylaxis Protonix IV DVT Prophylaxis -- SCDs - Subcu heparin on hold for thrombocytopenia Palliative care is following Code status: Alternative code Lines: New Right IJ vascath placed 02/08. Peripheral IV's Follow up on labs today Condition critical Time spent on critical care excluding procedures 30 minutes
[2018-02-11] MEDS ORDERED: [UNRECOGNIZED DRUG - REMARK] IV.SIG ONE (09:37)
[2018-02-11] MEDS: Chlorhexidine 0.12% Oral Kit 15 ML UDC OROPHARYNG SCH (10:52)
[2018-02-11] MEDS: dilTIAZem 60 MG Tablet PO SCH ×3 (10:52→20:56)
[2018-02-11] MEDS: Pantoprazole Inj 40 MG Vial IV.PUSH SCH (10:53)
[2018-02-11] MEDS: Sennosides Liq 8.8 MG/5 ML UDC PO SCH (11:02)
[2018-02-11] MEDS: Docusate Sodium 100 MG Capsule PO SCH ×2 (11:02→20:56)
--- NOTE | 2018-02-11 11:45 | P.PNPAL ---
Reason for Visit Reason for visit: a. To assist with evaluation and management of symptoms including: pain, anxiety b. To assist medical decision maker(s) with: better understanding of current medical conditions; weighing benefits/burdens of medical treatment options; making medical treatment decisions. Subjective Subjective/Interval History: Again has had fevers, Tmax 100.1. MRCP performed yesterday and did not show biliary obstruction. Pt on amio drip for tachycardia. EMILY performed. Patient remains intubated. He remains confused, restless. unable to elicit history. Family/Friend Interactions: Pt's son/health care proxy is on his way back home to [place]. Objective Vital Signs: Vital Signs 02/10/18 12:00 02/10/18 13:13 02/10/18 14:00 Temperature 99.5 F Pulse Rate 80 139 H Respiratory Rate 18 18 Blood Pressure 99/58 L Pulse Oximetry 97 96 02/10/18 15:15 02/10/18 16:00 02/10/18 17:45 Temperature 99 F Pulse Rate 82 74 Respiratory Rate 18 18 0 L Blood Pressure 102/51 L 95/54 L Pulse Oximetry 98 98 97 02/10/18 17:47 02/10/18 17:50 02/10/18 17:52 Temperature Pulse Rate 73 73 74 Respiratory Rate 0 L 0 L 0 L Blood Pressure 95/56 L 95/55 L 95/56 L Pulse Oximetry 98 97 98 02/10/18 17:55 02/10/18 17:57 02/10/18 18:00 Temperature Pulse Rate 73 73 73 Respiratory Rate 0 L 0 L 0 L Blood Pressure 95/55 L 96/55 L 95/53 L Pulse Oximetry 97 97 98 02/10/18 18:02 02/10/18 18:05 02/10/18 18:07 Temperature Pulse Rate 73 73 73 Respiratory Rate 0 L 0 L 0 L Blood Pressure 96/54 L 96/54 L 98/54 L Pulse Oximetry 98 98 98 02/10/18 18:10 02/10/18 18:12 02/10/18 18:15 Temperature Pulse Rate 73 73 73 Respiratory Rate 0 L 0 L 0 L Blood Pressure 98/54 L 96/53 L 96/55 L Pulse Oximetry 97 97 97 02/10/18 18:18 02/10/18 18:20 02/10/18 18:22 Temperature Pulse Rate 76 76 76 Respiratory Rate 11 L 10 L 11 L Blood Pressure 104/62 111/61 116/59 L Pulse Oximetry 94 L 96 97 02/10/18 18:25 02/10/18 18:28 02/10/18 18:30 Temperature Pulse Rate 76 76 77 Respiratory Rate 14 10 L 15 Blood Pressure 110/61 114/60 105/61 Pulse Oximetry 97 97 97 02/10/18 18:33 02/10/18 18:35 02/10/18 18:38 Temperature Pulse Rate 76 76 76 Respiratory Rate 14 18 14 Blood Pressure 105/55 L 113/55 L 114/55 L Pulse Oximetry 97 97 96 02/10/18 18:40 02/10/18 19:00 02/10/18 20:00 Temperature Pulse Rate 76 73 71 Respiratory Rate 15 18 12 Blood Pressure 111/59 L Pulse Oximetry 96 98 97 02/10/18 20:40 02/10/18 20:43 02/10/18 20:49 Temperature Pulse Rate 69 71 Respiratory Rate 19 18 9 L Blood Pressure 107/62 Pulse Oximetry 97 99 02/10/18 20:54 02/10/18 21:00 02/10/18 22:05 Temperature Pulse Rate 72 69 77 Respiratory Rate 4 L 13 17 Blood Pressure 111/59 L 97/52 L Pulse Oximetry 98 100 02/10/18 22:06 02/10/18 23:00 02/10/18 23:34 Temperature Pulse Rate 76 72 71 Respiratory Rate 37 H 18 18 Blood Pressure 104/58 L 91/52 L Pulse Oximetry 99 95 95 02/11/18 00:00 02/11/18 00:11 02/11/18 00:31 Temperature 99.0 F Pulse Rate 70 73 75 Respiratory Rate 18 20 19 Blood Pressure 92/54 L 107/62 114/72 Pulse Oximetry 97 97 95 02/11/18 01:38 02/11/18 02:00 02/11/18 04:00 Temperature Pulse Rate 69 69 Respiratory Rate 20 Blood Pressure Pulse Oximetry 02/11/18 04:02 02/11/18 06:00 02/11/18 09:33 Temperature Pulse Rate 69 71 69 Respiratory Rate 18 19 Blood Pressure Pulse Oximetry 96 96 Intake & Output 02/10/18 02/11/18 02/11/18 18:59 06:59 18:59 Intake Total 1000 / 1000 1070 / 1070 200 / 200 Output Total 0 / 0 0 / 0 2500 / 2500 Balance 1000 / 1000 1070 / 1070 -2300 / -2300 Weight 107 kg Intake: IV 1000 / 1000 1070 / 1070 200 / 200 Diprivan 1000 mg/100 ml Inj 1, 100 / 100 170 / 170 000 mg In 100 ml @ 5 MCG/KG/MIN 2.85 mls/hr IV.CONT TITRATE PRN Rx#:[id number] fentaNYL 10 mcg/mL Premix Drip 250 / 250 500 / 500 2,500 mcg In 250 ml @ 50 MCG/HR 5 mls/hr IV.CONT TITRATE PRN Rx#:[id number] Flexbumin 25% Inj 100 ML @ 60 200 / 200 mls/hr IV.SIG WITH DIALYSIS LEROY Rx#:[id number] Cordarone Inj 450 MG In NS Inj 250 / 250 241 ML @ 0.5 MG/MIN 16.66 mls/ hr IV.SIG .Q15H1M LEROY Rx#: [id number] Teflaro Inj 600 MG In NS Inj 100 / 100 100 / 100 100 ML @ 100 mls/hr IV.SIG Q8H LEROY Rx#:[id number] Prostaphlin Inj 2 GM In NS Inj 300 / 300 300 / 300 100 ML @ 200 mls/hr IV.SIG Q4H LEROY Rx#:[id number] Tube Feeding 0 / 0 Output: Hemodialysis Amount 2500 / 2500 Urine Amount (Catheter) 0 / 0 0 / 0 Coude 0 / 0 0 / 0 Chest Tube Drainage 0 / 0 #1 Right Anterior 0 / 0 Other: # Bowel Movements 0 Physical Exam: CONSTITUTIONAL/GENERAL: This is a critically ill 57 year old male, intubated and sedated TUBES/LINES/DRAINS: pigtail cathether, quezada, ET tube, central line. SKIN:jaundice HEAD: Atraumatic. Normocephalic. EYES: Pupils equal and round and reactive. Icteric scelera ENT: Hearing grossly normal. Nose without bleeding or purulent drainage. Throat ET tube present NECK: Trachea midline. Supple, nontender. No palpable thyroid enlargement or nodularity. CARDIOVASCULAR: Regular rate and rhythm without murmurs, gallops, or rubs. No JVD. RESPIRATORY/CHEST:Rhonchi bilaterally. GASTROINTESTINAL: Abdomen distended. soft. BS present. GENITOURINARY: Without palpable bladder distension. Quezada catheter in place. MUSCULOSKELETAL: Extremities without clubbing, cyanosis. 2+ edema LYMPHATICS: No palpable cervical or supraclavicular adenopathy. NEUROLOGICAL: Intubated sedated PSYCHIATRIC: unable to elicit Diagnostic Tests Laboratory: Laboratory Results - last 72 hr 02/08/18 02/08/18 02/08/18 08:50 11:34 13:00 WBC RBC Hgb Hct MCV MCH MCHC RDW Plt Count MPV Prelim Diff (Auto) Neut % (Auto) Lymph % (Auto) [place] % (Auto) Eos % (Auto) Baso % (Auto) Neut # (Auto) Lymph # (Auto) [place] # (Auto) Eos # (Auto) Baso # (Auto) WBC Differential Manual diff final Diff Scan Seg Neuts % (Manual) 78 H Band Neuts % (Manual) 20 H Lymphocytes % (Manual) 1 L Eosinophils % (Manual) 1 Abs Neuts (Manual) 9.1 H Differential Comment Toxic Granulation Platelet Estimate Low L Platelet Morphology Normal Stomatocytes Puncture Site Patient Temperature O2 Saturation ABG pH ABG pCO2 ABG pO2 ABG HCO3 ABG O2 Content ABG Base Excess ABG Methemoglobin Hemoglobin Carboxyhemoglobin O2 Delivery Device Vent Setting Inspired O2 Critical Value Sodium Potassium Chloride Carbon Dioxide Anion Gap BUN Creatinine Estimated GFR POC Glucose 183 H Random Glucose Calcium Prot Corrected Calcium Total Bilirubin AST ALT Alkaline Phosphatase Total Protein Albumin Blood Type O Positive Blood Type Confirm Blood Type Recheck Required Bld Prod Order Comment 02/08/18 02/08/18 02/08/18 13:09 16:09 20:53 WBC RBC Hgb Hct MCV MCH MCHC RDW Plt Count MPV Prelim Diff (Auto) Neut % (Auto) Lymph % (Auto) [place] % (Auto) Eos % (Auto) Baso % (Auto) Neut # (Auto) Lymph # (Auto) [place] # (Auto) Eos # (Auto) Baso # (Auto) WBC Differential Diff Scan Seg Neuts % (Manual) Band Neuts % (Manual) Lymphocytes % (Manual) Eosinophils % (Manual) Abs Neuts (Manual) Differential Comment Toxic Granulation Platelet Estimate Platelet Morphology Stomatocytes Puncture Site Patient Temperature O2 Saturation ABG pH ABG pCO2 ABG pO2 ABG HCO3 ABG O2 Content ABG Base Excess ABG Methemoglobin Hemoglobin Carboxyhemoglobin O2 Delivery Device Vent Setting Inspired O2 Critical Value Sodium Potassium Chloride Carbon Dioxide Anion Gap BUN Creatinine Estimated GFR POC Glucose 186 H 215 H Random Glucose Calcium Prot Corrected Calcium Total Bilirubin AST ALT Alkaline Phosphatase Total Protein Albumin Blood Type Blood Type Confirm O Positive Blood Type Recheck Bld Prod Order Comment 02/09/18 02/09/18 02/09/18 05:14 05:14 08:08 WBC 9.4 RBC 2.94 L Hgb 8.9 L Hct 25.9 L MCV 88.2 MCH 30.1 MCHC 34.1 RDW 17.1 Plt Count 39 L MPV 9.9 Prelim Diff (Auto) Neut % (Auto) Lymph % (Auto) [place] % (Auto) Eos % (Auto) Baso % (Auto) Neut # (Auto) Lymph # (Auto) [place] # (Auto) Eos # (Auto) Baso # (Auto) WBC Differential Diff Scan Seg Neuts % (Manual) Band Neuts % (Manual) Lymphocytes % (Manual) Eosinophils % (Manual) Abs Neuts (Manual) Differential Comment Toxic Granulation Platelet Estimate Platelet Morphology Stomatocytes Puncture Site Patient Temperature O2 Saturation ABG pH ABG pCO2 ABG pO2 ABG HCO3 ABG O2 Content ABG Base Excess ABG Methemoglobin Hemoglobin Carboxyhemoglobin O2 Delivery Device Vent Setting Inspired O2 Critical Value Sodium 143 Potassium 4.1 Chloride 105 Carbon Dioxide 21.8 Anion Gap 16 H BUN 75 H Creatinine 4.90 H Estimated GFR 12 L POC Glucose 256 H Random Glucose 209 H Calcium 7.5 L Prot Corrected Calcium Total Bilirubin 7.4 H AST 86 H ALT 45 Alkaline Phosphatase 131 H Total Protein 5.5 L D Albumin 1.4 L Blood Type Blood Type Confirm Blood Type Recheck Bld Prod Order Comment 02/09/18 02/09/18 02/09/18 10:08 10:08 13:17 WBC 8.8 RBC 2.72 L Hgb 8.1 L Hct 24.2 L MCV 88.9 MCH 29.8 MCHC 33.5 RDW 17.3 H Plt Count 37 L MPV 9.7 Prelim Diff (Auto) Slide review pending Neut % (Auto) 93.8 H Lymph % (Auto) 3.2 L [place] % (Auto) 2.5 Eos % (Auto) 0.1 Baso % (Auto) 0.4 Neut # (Auto) 8.2 H Lymph # (Auto) 0.3 L [place] # (Auto) 0.2 Eos # (Auto) 0.0 Baso # (Auto) 0.0 WBC Differential . Diff Scan Auto diff confirmed Seg Neuts % (Manual) Band Neuts % (Manual) Lymphocytes % (Manual) Eosinophils % (Manual) Abs Neuts (Manual) Differential Comment . Toxic Granulation 1+ H Platelet Estimate Low L Platelet Morphology Normal Stomatocytes 2+ H Puncture Site Patient Temperature O2 Saturation ABG pH ABG pCO2 ABG pO2 ABG HCO3 ABG O2 Content ABG Base Excess ABG Methemoglobin Hemoglobin Carboxyhemoglobin O2 Delivery Device Vent Setting Inspired O2 Critical Value Sodium 144 Potassium 3.9 Chloride 105 Carbon Dioxide 23.6 Anion Gap 15 BUN 50 H Creatinine 3.30 H Estimated GFR 20 L POC Glucose 226 H Random Glucose 202 H Calcium 8.1 L Prot Corrected Calcium Total Bilirubin 7.7 H AST 74 H ALT 40 Alkaline Phosphatase 122 H Total Protein 6.0 L Albumin 2.3 L D Blood Type Blood Type Confirm Blood Type Recheck Bld Prod Order Comment 02/09/18 02/09/18 02/10/18 16:39 21:18 08:00 WBC RBC Hgb Hct MCV MCH MCHC RDW Plt Count MPV Prelim Diff (Auto) Neut % (Auto) Lymph % (Auto) [place] % (Auto) Eos % (Auto) Baso % (Auto) Neut # (Auto) Lymph # (Auto) [place] # (Auto) Eos # (Auto) Baso # (Auto) WBC Differential Diff Scan Seg Neuts % (Manual) Band Neuts % (Manual) Lymphocytes % (Manual) Eosinophils % (Manual) Abs Neuts (Manual) Differential Comment Toxic Granulation Platelet Estimate Platelet Morphology Stomatocytes Puncture Site Patient Temperature O2 Saturation ABG pH ABG pCO2 ABG pO2 ABG HCO3 ABG O2 Content ABG Base Excess ABG Methemoglobin Hemoglobin Carboxyhemoglobin O2 Delivery Device Vent Setting Inspired O2 Critical Value Sodium Potassium Chloride Carbon Dioxide Anion Gap BUN Creatinine Estimated GFR POC Glucose 261 H 254 H 256 H Random Glucose Calcium Prot Corrected Calcium Total Bilirubin AST ALT Alkaline Phosphatase Total Protein Albumin Blood Type Blood Type Confirm Blood Type Recheck Bld Prod Order Comment 02/10/18 02/10/18 02/10/18 09:30 09:30 09:58 WBC 5.8 RBC 2.38 L Hgb 7.2 L Hct 21.7 L MCV 91.0 MCH 30.4 MCHC 33.4 RDW 17.5 H Plt Count 51 L D MPV 10.3 Prelim Diff (Auto) Neut % (Auto) Lymph % (Auto) [place] % (Auto) Eos % (Auto) Baso % (Auto) Neut # (Auto) Lymph # (Auto) [place] # (Auto) Eos # (Auto) Baso # (Auto) WBC Differential Diff Scan Seg Neuts % (Manual) Band Neuts % (Manual) Lymphocytes % (Manual) Eosinophils % (Manual) Abs Neuts (Manual) Differential Comment Toxic Granulation Platelet Estimate Platelet Morphology Stomatocytes Puncture Site Art line Patient Temperature 98.6 O2 Saturation 92 ABG pH 7.48 H ABG pCO2 30 L ABG pO2 80 ABG HCO3 22 ABG O2 Content 17.2 ABG Base Excess -1.4 ABG Methemoglobin 1.6 Hemoglobin 13.2 Carboxyhemoglobin 1.0 O2 Delivery Device Ventilator Vent Setting Prvc/ac Inspired O2 40 Critical Value No Sodium 144 Potassium 4.1 Chloride 107 Carbon Dioxide 22.5 Anion Gap 15 BUN 73 H Creatinine 4.71 H Estimated GFR 13 L POC Glucose Random Glucose 234 H Calcium 7.1 L* D Prot Corrected Calcium 8.1 L Total Bilirubin 6.8 H AST 56 H ALT 32 Alkaline Phosphatase 156 H Total Protein 5.3 L D Albumin 1.5 L D Blood Type Blood Type Confirm Blood Type Recheck Bld Prod Order Comment 02/10/18 02/10/18 02/10/18 10:54 11:48 17:20 WBC RBC Hgb 7.0 L 7.0 L Hct 21.0 L 21.0 L MCV MCH MCHC RDW Plt Count MPV Prelim Diff (Auto) Neut % (Auto) Lymph % (Auto) [place] % (Auto) Eos % (Auto) Baso % (Auto) Neut # (Auto) Lymph # (Auto) [place] # (Auto) Eos # (Auto) Baso # (Auto) WBC Differential Diff Scan Seg Neuts % (Manual) Band Neuts % (Manual) Lymphocytes % (Manual) Eosinophils % (Manual) Abs Neuts (Manual) Differential Comment Toxic Granulation Platelet Estimate Platelet Morphology Stomatocytes Puncture Site Patient Temperature O2 Saturation ABG pH ABG pCO2 ABG pO2 ABG HCO3 ABG O2 Content ABG Base Excess ABG Methemoglobin Hemoglobin Carboxyhemoglobin O2 Delivery Device Vent Setting Inspired O2 Critical Value Sodium Potassium Chloride Carbon Dioxide Anion Gap BUN Creatinine Estimated GFR POC Glucose 237 H Random Glucose Calcium Prot Corrected Calcium Total Bilirubin AST ALT Alkaline Phosphatase Total Protein Albumin Blood Type Blood Type Confirm Blood Type Recheck Bld Prod Order Comment 02/10/18 02/10/18 02/11/18 17:24 23:59 06:14 WBC RBC Hgb Hct MCV MCH MCHC RDW Plt Count MPV Prelim Diff (Auto) Neut % (Auto) Lymph % (Auto) [place] % (Auto) Eos % (Auto) Baso % (Auto) Neut # (Auto) Lymph # (Auto) [place] # (Auto) Eos # (Auto) Baso # (Auto) WBC Differential Diff Scan Seg Neuts % (Manual) Band Neuts % (Manual) Lymphocytes % (Manual) Eosinophils % (Manual) Abs Neuts (Manual) Differential Comment Toxic Granulation Platelet Estimate Platelet Morphology Stomatocytes Puncture Site Patient Temperature O2 Saturation ABG pH ABG pCO2 ABG pO2 ABG HCO3 ABG O2 Content ABG Base Excess ABG Methemoglobin Hemoglobin Carboxyhemoglobin O2 Delivery Device Vent Setting Inspired O2 Critical Value Sodium Potassium Chloride Carbon Dioxide Anion Gap BUN Creatinine Estimated GFR POC Glucose 238 H 181 H 211 H Random Glucose Calcium Prot Corrected Calcium Total Bilirubin AST ALT Alkaline Phosphatase Total Protein Albumin Blood Type Blood Type Confirm Blood Type Recheck Bld Prod Order Comment Result Diagrams: 02/11/18 11:34 02/11/18 11:34 Microbiology: Microbiology 02/08/18 14:02 Aerobic Blood Culture - Preliminary Blood - Peripheral gram positive cocci Anaerobic Blood Culture - Preliminary No growth in 3 days 02/08/18 13:55 Aerobic Blood Culture - Preliminary Blood - Peripheral gram positive cocci Anaerobic Blood Culture - Preliminary No growth in 3 days 02/07/18 03:59 Aerobic Blood Culture - Final Blood - Peripheral Staphylococcus aureus Anaerobic Blood Culture - Preliminary No growth in 4 days 02/06/18 10:59 Aerobic Blood Culture - Final Blood - Peripheral Staphylococcus aureus Anaerobic Blood Culture - Final No growth in 5 days 02/08/18 12:30 Wound Culture - Final Catheter Tip - Central Venous Line No growth in 48 hours Assessment and Plan - Disease Oriented Problem List (1) Acute renal failure (ARF) (2) Sepsis (3) Respiratory failure (4) Hypotension (5) Cholelithiasis Pertinent Non-Medical Issues: Psychosocial: Veteram. disablilty (back pain) and x 3. Have one son Ronald Forrester from 2nd marriage. Spiritual:chrisitan Legal:no known advacnce directive per bother. Ethical issues impacting care: Important Contacts: (Son/ health care proxy) [phone] (brother)Chris Forrester [phone] Prognosis: 57 year old hx of etoh abuse, came in with severe sepsis, tachycardia, respiratory failure. Pt continue to be in sepsis with pressor support, mechanically ventilated, on dialysis, encephalopathic, hepatic shock. Prognosis is guarded. Code Status: Alternative Code (no cpr/acls/shock) Plan: == capacity- does not have capacity to make medical decision. Critically ill, encephalopathic, multi-organ failure. I do not anticipate return to have capacity unless pt becomes non critical. There is a big potential that this may not happen. == health care decision maker: x 3, and x 3. Son from 2nd marriage Ronald Forrester is medical decision maker == code- Alternative Code: No shock/acls/cpr. Okay with pressors and continue with intubation. Goals of care- No change = continue aggressive care short of cpr/compression/ shock/acls. = If pt could not be weaned of ventilator and required peg or trach, family state pt would not want to proceed with peg or trach, and at that time they would proceed/ transition to hospice care and compassionate withdrawal. symptom: pain- tachycardia, chronic back pain, found on the floor, hospitalize debility- fentanyl protocol placed anxiety- associated with dyspnea and discomfort. -fentanyl availabe for == Palliative care will follow to make recommendation for symptom managment, and review goals of care as clinical conditions evolves.
[2018-02-11] MEDS ORDERED: Dexmedetomidine Inj 200 MCG/50 ML INFUS..BTL IV.CONT PRN ×2 (12:07→17:00)
[2018-02-11 12:17] LABS: Baso % (Auto) 0.7 % (0.0-2.0); Eos % (Auto) 0.6 % (0.0-4.0); Lymph # (Auto) 0.4 th/mm3 (1.0-4.8); Lymph % (Auto) 10.5 % (9.0-44.0); Mean Corpuscular HGB Conc 33.6 % (32.0-36.0); Mean Corpuscular Hemoglobin 30.1 pg (27.0-34.0); Mean Corpuscular Volume 89.7 fL (80.0-100.0); Mean Platelet Volume 10.2 fL (7.0-11.0); Mono # (Auto) 0.2 th/mm3 (0.0-0.9); Mono % (Auto) 4.3 % (0.0-8.0); Neut # (Auto) 3.5 th/mm3 (1.8-7.7); Neut % (Auto) 83.9 % (16.0-70.0); Platelet Count 66 th/mm3 (150-450); Red Blood Count 2.28 mil/mm3 (4.50-5.90); Red Cell Distribution Width 18.3 % (11.6-17.2); White Blood Count 4.2 th/mm3 (4.0-11.0)
[2018-02-11 12:32] LABS: Hemoglobin 6.9 gm/dL (13.0-17.0)
[2018-02-11 12:33] LABS: Hematocrit 20.5 % (39.0-51.0)
[2018-02-11 12:56] LABS: Lymphocytes 2 % (9-44); Monocytes 4 % (0-8)
[2018-02-11 12:57] LABS: Platelet Morphology Normal (Normal); Toxic Granulation 1+
[2018-02-11 12:58] LABS: Carbon Dioxide 24.4 meq/L (21.0-32.0); Potassium 3.9 meq/L (3.5-5.1); Stomatocytes 2+; Total Protein 5.8 g/dL (6.4-8.2)
[2018-02-11] MEDS ORDERED: Dexmedetomidine Inj 200 MCG in Sodium Chlor 0.9% Inj 50 ML IV.SIG PRN (13:23)
[2018-02-11] MEDS ORDERED: Magnesium Citrate Liq 300 ML Bottle PO ONE (13:48)
--- NOTE | 2018-02-11 13:48 | P.PNGI ---
Subjective Interval history: Patient currently on ventilator management but does move her head around with some agitation Abdomen firm large Questionable bowel movement timing, none over the past week? NG tube with Nepro at 20 cc/h Current hemoglobin 6.9 <Brittany Willard - Last Filed: 02/11/18 13:53> Physical Exam Vital signs: Vital Signs 02/10/18 14:00 02/10/18 15:15 02/10/18 16:00 Temperature 99 F Pulse Rate 139 H 82 Respiratory Rate 18 18 Blood Pressure 102/51 L Pulse Oximetry 98 98 02/10/18 17:45 02/10/18 17:47 02/10/18 17:50 Temperature Pulse Rate 74 73 73 Respiratory Rate 0 L 0 L 0 L Blood Pressure 95/54 L 95/56 L 95/55 L Pulse Oximetry 97 98 97 02/10/18 17:52 02/10/18 17:55 02/10/18 17:57 Temperature Pulse Rate 74 73 73 Respiratory Rate 0 L 0 L 0 L Blood Pressure 95/56 L 95/55 L 96/55 L Pulse Oximetry 98 97 97 02/10/18 18:00 02/10/18 18:02 02/10/18 18:05 Temperature Pulse Rate 73 73 73 Respiratory Rate 0 L 0 L 0 L Blood Pressure 95/53 L 96/54 L 96/54 L Pulse Oximetry 98 98 98 02/10/18 18:07 02/10/18 18:10 02/10/18 18:12 Temperature Pulse Rate 73 73 73 Respiratory Rate 0 L 0 L 0 L Blood Pressure 98/54 L 98/54 L 96/53 L Pulse Oximetry 98 97 97 02/10/18 18:15 02/10/18 18:18 02/10/18 18:20 Temperature Pulse Rate 73 76 76 Respiratory Rate 0 L 11 L 10 L Blood Pressure 96/55 L 104/62 111/61 Pulse Oximetry 97 94 L 96 02/10/18 18:22 02/10/18 18:25 02/10/18 18:28 Temperature Pulse Rate 76 76 76 Respiratory Rate 11 L 14 10 L Blood Pressure 116/59 L 110/61 114/60 Pulse Oximetry 97 97 97 02/10/18 18:30 02/10/18 18:33 02/10/18 18:35 Temperature Pulse Rate 77 76 76 Respiratory Rate 15 14 18 Blood Pressure 105/61 105/55 L 113/55 L Pulse Oximetry 97 97 97 02/10/18 18:38 02/10/18 18:40 02/10/18 19:00 Temperature Pulse Rate 76 76 73 Respiratory Rate 14 15 18 Blood Pressure 114/55 L 111/59 L Pulse Oximetry 96 96 98 02/10/18 20:00 02/10/18 20:40 02/10/18 20:43 Temperature Pulse Rate 71 69 Respiratory Rate 12 19 18 Blood Pressure Pulse Oximetry 97 97 02/10/18 20:49 02/10/18 20:54 02/10/18 21:00 Temperature Pulse Rate 71 72 69 Respiratory Rate 9 L 4 L 13 Blood Pressure 107/62 111/59 L 97/52 L Pulse Oximetry 99 98 100 02/10/18 22:05 02/10/18 22:06 02/10/18 23:00 Temperature Pulse Rate 77 76 72 Respiratory Rate 17 37 H 18 Blood Pressure 104/58 L Pulse Oximetry 99 95 02/10/18 23:34 02/11/18 00:00 02/11/18 00:11 Temperature 99.0 F Pulse Rate 71 70 73 Respiratory Rate 18 18 20 Blood Pressure 91/52 L 92/54 L 107/62 Pulse Oximetry 95 97 97 02/11/18 00:31 02/11/18 01:38 02/11/18 02:00 Temperature Pulse Rate 75 69 Respiratory Rate 19 20 Blood Pressure 114/72 Pulse Oximetry 95 02/11/18 04:00 02/11/18 04:02 02/11/18 06:00 Temperature Pulse Rate 69 69 71 Respiratory Rate 18 Blood Pressure Pulse Oximetry 96 02/11/18 09:33 02/11/18 11:52 Temperature Pulse Rate 69 Respiratory Rate 19 18 Blood Pressure Pulse Oximetry 96 94 L Intake & Output 02/10/18 02/11/18 02/11/18 18:59 06:59 18:59 Intake Total 1000 / 1000 1170 / 1170 300 / 300 Output Total 0 / 0 0 / 0 2500 / 2500 Balance 1000 / 1000 1170 / 1170 -2200 / -2200 Weight 107 kg Intake: IV 1000 / 1000 1170 / 1170 300 / 300 Diprivan 1000 mg/100 ml Inj 1, 100 / 100 170 / 170 000 mg In 100 ml @ 5 MCG/KG/MIN 2.85 mls/hr IV.CONT TITRATE PRN Rx#:[id number] fentaNYL 10 mcg/mL Premix Drip 250 / 250 500 / 500 2,500 mcg In 250 ml @ 50 MCG/HR 5 mls/hr IV.CONT TITRATE PRN Rx#:[id number] Flexbumin 25% Inj 100 ML @ 60 200 / 200 mls/hr IV.SIG WITH DIALYSIS LEROY Rx#:[id number] Cordarone Inj 450 MG In NS Inj 250 / 250 241 ML @ 0.5 MG/MIN 16.66 mls/ hr IV.SIG .Q15H1M LEROY Rx#: [id number] Teflaro Inj 600 MG In NS Inj 100 / 100 100 / 100 100 / 100 100 ML @ 100 mls/hr IV.SIG Q8H LEROY Rx#:[id number] Prostaphlin Inj 2 GM In NS Inj 300 / 300 400 / 400 100 ML @ 200 mls/hr IV.SIG Q4H LEROY Rx#:[id number] Tube Feeding 0 / 0 Output: Hemodialysis Amount 2500 / 2500 Urine Amount (Catheter) 0 / 0 0 / 0 Coude 0 / 0 0 / 0 Chest Tube Drainage 0 / 0 #1 Right Anterior 0 / 0 Other: # Bowel Movements 0 - Constitutional moderate distress - Routine HEENT Exam Head: Present: normocephalic, atraumatic Eye: Present: EOMI ENT: Present: mucous membranes moist (Anxious thrashing head around) - Routine Neck Exam Present: supple - Routine Respiratory Exam Present: patient mechanically ventilated, decreased breath sounds - Routine Cardiovascular Exam Present: RRR (Currently but has been in and out of irregular heart rhythm) - Routine Skin Exam Present: intact - Routine Neurological Exam Present: altered mental status (Currently ventilated support) - Detailed Neurological Exam: Coma Scale Verbal Response: None (ET tube) - Routine Psychiatric Exam Present: anxious, agitated - Urinary Catheter Management Coude Cath placed during this visit: yes Reason for continuing: Hourly intake/output Insertion date: 02/02/18 <Brittany Willard - Last Filed: 02/11/18 13:53> Vital signs: Vital Signs 02/10/18 15:15 02/10/18 16:00 02/10/18 17:45 Temperature 99 F Pulse Rate 82 74 Respiratory Rate 18 18 0 L Blood Pressure 102/51 L 95/54 L Pulse Oximetry 98 98 97 02/10/18 17:47 07/05/18 17:50 02/10/18 17:52 Temperature Pulse Rate 73 73 74 Respiratory Rate 0 L 0 L 0 L Blood Pressure 95/56 L 95/55 L 95/56 L Pulse Oximetry 98 97 98 02/10/18 17:55 02/10/18 17:57 02/10/18 18:00 Temperature Pulse Rate 73 73 73 Respiratory Rate 0 L 0 L 0 L Blood Pressure 95/55 L 96/55 L 95/53 L Pulse Oximetry 97 97 98 02/10/18 18:02 02/10/18 18:05 02/10/18 18:07 Temperature Pulse Rate 73 73 73 Respiratory Rate 0 L 0 L 0 L Blood Pressure 96/54 L 96/54 L 98/54 L Pulse Oximetry 98 98 98 02/10/18 18:10 02/10/18 18:12 02/10/18 18:15 Temperature Pulse Rate 73 73 73 Respiratory Rate 0 L 0 L 0 L Blood Pressure 98/54 L 96/53 L 96/55 L Pulse Oximetry 97 97 97 02/10/18 18:18 02/10/18 18:20 02/10/18 18:22 Temperature Pulse Rate 76 76 76 Respiratory Rate 11 L 10 L 11 L Blood Pressure 104/62 111/61 116/59 L Pulse Oximetry 94 L 96 97 02/10/18 18:25 02/10/18 18:28 02/10/18 18:30 Temperature Pulse Rate 76 76 77 Respiratory Rate 14 10 L 15 Blood Pressure 110/61 114/60 105/61 Pulse Oximetry 97 97 97 02/10/18 18:33 02/10/18 18:35 02/10/18 18:38 Temperature Pulse Rate 76 76 76 Respiratory Rate 14 18 14 Blood Pressure 105/55 L 113/55 L 114/55 L Pulse Oximetry 97 97 96 02/10/18 18:40 02/10/18 19:00 02/10/18 20:00 Temperature Pulse Rate 76 73 71 Respiratory Rate 15 18 12 Blood Pressure 111/59 L Pulse Oximetry 96 98 97 02/10/18 20:40 02/10/18 20:43 02/10/18 20:49 Temperature Pulse Rate 69 71 Respiratory Rate 19 18 9 L Blood Pressure 107/62 Pulse Oximetry 97 99 02/10/18 20:54 02/10/18 21:00 02/10/18 22:05 Temperature Pulse Rate 72 69 77 Respiratory Rate 4 L 13 17 Blood Pressure 111/59 L 97/52 L Pulse Oximetry 98 100 02/10/18 22:06 02/10/18 23:00 02/10/18 23:34 Temperature Pulse Rate 76 72 71 Respiratory Rate 37 H 18 18 Blood Pressure 104/58 L 91/52 L Pulse Oximetry 99 95 95 02/11/18 00:00 02/11/18 00:11 02/11/18 00:31 Temperature 99.0 F Pulse Rate 70 73 75 Respiratory Rate 18 20 19 Blood Pressure 92/54 L 107/62 114/72 Pulse Oximetry 97 97 95 02/11/18 01:38 02/11/18 02:00 02/11/18 04:00 Temperature Pulse Rate 69 69 Respiratory Rate 20 Blood Pressure Pulse Oximetry 02/11/18 04:02 02/11/18 06:00 02/11/18 09:33 Temperature Pulse Rate 69 71 69 Respiratory Rate 18 19 Blood Pressure Pulse Oximetry 96 96 02/11/18 11:52 Temperature Pulse Rate Respiratory Rate 18 Blood Pressure Pulse Oximetry 94 L Intake & Output 02/10/18 02/11/18 02/11/18 18:59 06:59 18:59 Intake Total 1000 / 1000 1170 / 1170 300 / 300 Output Total 0 / 0 0 / 0 2500 / 2500 Balance 1000 / 1000 1170 / 1170 -2200 / -2200 Weight 107 kg Intake: IV 1000 / 1000 1170 / 1170 300 / 300 Diprivan 1000 mg/100 ml Inj 1, 100 / 100 170 / 170 000 mg In 100 ml @ 5 MCG/KG/MIN 2.85 mls/hr IV.CONT TITRATE PRN Rx#:[id number] fentaNYL 10 mcg/mL Premix Drip 250 / 250 500 / 500 2,500 mcg In 250 ml @ 50 MCG/HR 5 mls/hr IV.CONT TITRATE PRN Rx#:[id number] Flexbumin 25% Inj 100 ML @ 60 200 / 200 mls/hr IV.SIG WITH DIALYSIS LEROY Rx#:[id number] Cordarone Inj 450 MG In NS Inj 250 / 250 241 ML @ 0.5 MG/MIN 16.66 mls/ hr IV.SIG .Q15H1M [facility]ERO[facility] Rx#: [id number] Teflaro Inj 600 MG In NS Inj 100 / 100 100 / 100 100 / 100 100 ML @ 100 mls/hr IV.SIG Q8H LEROY Rx#:[id number] Prostaphlin Inj 2 GM In NS Inj 300 / 300 400 / 400 100 ML @ 200 mls/hr IV.SIG Q4H LEROY Rx#:[id number] Tube Feeding 0 / 0 Output: Hemodialysis Amount 2500 / 2500 Urine Amount (Catheter) 0 / 0 0 / 0 Coude 0 / 0 0 / 0 Chest Tube Drainage 0 / 0 #1 Right Anterior 0 / 0 Other: # Bowel Movements 0 - Urinary Catheter Management Coude Cath placed during this visit: no <Helene Galvin - Last Filed: 02/11/18 14:17> Results - Labs CBC & Chem 7: 02/11/18 11:34 02/11/18 11:34 Laboratory Results - last 24 hr 02/10/18 02/10/18 02/10/18 17:20 17:24 23:59 WBC RBC Hgb 7.0 L Hct 21.0 L MCV MCH MCHC RDW Plt Count MPV Prelim Diff (Auto) Neut % (Auto) Lymph % (Auto) [place] % (Auto) Eos % (Auto) Baso % (Auto) Neut # (Auto) Lymph # (Auto) [place] # (Auto) Eos # (Auto) Baso # (Auto) WBC Differential Seg Neuts % (Manual) Band Neuts % (Manual) Lymphocytes % (Manual) Monocytes % (Manual) Abs Neuts (Manual) Differential Comment Toxic Granulation Platelet Estimate Platelet Morphology Stomatocytes Sodium Potassium Chloride Carbon Dioxide Anion Gap BUN Creatinine Estimated GFR POC Glucose 238 H 181 H Random Glucose Calcium Prot Corrected Calcium Total Bilirubin AST ALT Alkaline Phosphatase Total Protein Albumin 02/11/18 02/11/18 02/11/18 06:14 11:34 11:34 WBC 4.2 RBC 2.28 L Hgb 6.9 L* Hct 20.5 L* MCV 89.7 MCH 30.1 MCHC 33.6 RDW 18.3 H Plt Count 66 L MPV 10.2 Prelim Diff (Auto) Slide review pending Neut % (Auto) 83.9 H Lymph % (Auto) 10.5 [place] % (Auto) 4.3 Eos % (Auto) 0.6 Baso % (Auto) 0.7 Neut # (Auto) 3.5 Lymph # (Auto) 0.4 L [place] # (Auto) 0.2 Eos # (Auto) 0.0 Baso # (Auto) 0.0 WBC Differential Manual diff final Seg Neuts % (Manual) 82 H Band Neuts % (Manual) 12 H Lymphocytes % (Manual) 2 L Monocytes % (Manual) 4 Abs Neuts (Manual) 3.9 Differential Comment . Toxic Granulation 1+ H Platelet Estimate Low L Platelet Morphology Normal Stomatocytes 2+ H Sodium 145 Potassium 3.9 Chloride 106 Carbon Dioxide 24.4 Anion Gap 15 BUN 54 H Creatinine 3.93 H Estimated GFR 16 L POC Glucose 211 H Random Glucose 117 H D Calcium 7.0 L* Prot Corrected Calcium 7.7 L Total Bilirubin 5.9 H AST 42 H ALT 26 Alkaline Phosphatase 138 H Total Protein 5.8 L Albumin 2.0 L 02/11/18 11:49 WBC RBC Hgb Hct MCV MCH MCHC RDW Plt Count MPV Prelim Diff (Auto) Neut % (Auto) Lymph % (Auto) [place] % (Auto) Eos % (Auto) Baso % (Auto) Neut # (Auto) Lymph # (Auto) [place] # (Auto) Eos # (Auto) Baso # (Auto) WBC Differential Seg Neuts % (Manual) Band Neuts % (Manual) Lymphocytes % (Manual) Monocytes % (Manual) Abs Neuts (Manual) Differential Comment Toxic Granulation Platelet Estimate Platelet Morphology Stomatocytes Sodium Potassium Chloride Carbon Dioxide Anion Gap BUN Creatinine Estimated GFR POC Glucose 134 H Random Glucose Calcium Prot Corrected Calcium Total Bilirubin AST ALT Alkaline Phosphatase Total Protein Albumin Microbiology 02/08/18 14:02 Blood - Peripheral Aerobic Blood Culture - Preliminary Staphylococcus coag negative 02/08/18 14:02 Blood - Peripheral Anaerobic Blood Culture - Preliminary No growth in 3 days 02/08/18 13:55 Blood - Peripheral Aerobic Blood Culture - Preliminary Staphylococcus coag negative 02/08/18 13:55 Blood - Peripheral Anaerobic Blood Culture - Preliminary No growth in 3 days 02/07/18 03:59 Blood - Peripheral Aerobic Blood Culture - Final Staphylococcus aureus 02/07/18 03:59 Blood - Peripheral Anaerobic Blood Culture - Preliminary No growth in 4 days 02/06/18 10:59 Blood - Peripheral Aerobic Blood Culture - Final Staphylococcus aureus 02/06/18 10:59 Blood - Peripheral Anaerobic Blood Culture - Final No growth in 5 days - Imaging Impressions Chest X-Ray 02/10/18 00:00 CONCLUSION: Stable examination compared to the prior study. Cholangiopancreatography MRI 02/10/18 00:00 CONCLUSION: No evidence of biliary obstruction <Brittany Willard - Last Filed: 02/11/18 13:53> - Labs CBC & Chem 7: 02/11/18 11:34 02/11/18 11:34 Laboratory Results - last 24 hr 02/10/18 02/10/18 02/10/18 17:20 17:24 23:59 WBC RBC Hgb 7.0 L Hct 21.0 L MCV MCH MCHC RDW Plt Count MPV Prelim Diff (Auto) Neut % (Auto) Lymph % (Auto) [place] % (Auto) Eos % (Auto) Baso % (Auto) Neut # (Auto) Lymph # (Auto) [place] # (Auto) Eos # (Auto) Baso # (Auto) WBC Differential Seg Neuts % (Manual) Band Neuts % (Manual) Lymphocytes % (Manual) Monocytes % (Manual) Abs Neuts (Manual) Differential Comment Toxic Granulation Platelet Estimate Platelet Morphology Stomatocytes Sodium Potassium Chloride Carbon Dioxide Anion Gap BUN Creatinine Estimated GFR POC Glucose 238 H 181 H Random Glucose Calcium Prot Corrected Calcium Total Bilirubin AST ALT Alkaline Phosphatase Total Protein Albumin 02/11/18 02/11/18 02/11/18 06:14 11:34 11:34 WBC 4.2 RBC 2.28 L Hgb 6.9 L* Hct 20.5 L* MCV 89.7 MCH 30.1 MCHC 33.6 RDW 18.3 H Plt Count 66 L MPV 10.2 Prelim Diff (Auto) Slide review pending Neut % (Auto) 83.9 H Lymph % (Auto) 10.5 [place] % (Auto) 4.3 Eos % (Auto) 0.6 Baso % (Auto) 0.7 Neut # (Auto) 3.5 Lymph # (Auto) 0.4 L [place] # (Auto) 0.2 Eos # (Auto) 0.0 Baso # (Auto) 0.0 WBC Differential Manual diff final Seg Neuts % (Manual) 82 H Band Neuts % (Manual) 12 H Lymphocytes % (Manual) 2 L Monocytes % (Manual) 4 Abs Neuts (Manual) 3.9 Differential Comment . Toxic Granulation 1+ H Platelet Estimate Low L Platelet Morphology Normal Stomatocytes 2+ H Sodium 145 Potassium 3.9 Chloride 106 Carbon Dioxide 24.4 Anion Gap 15 BUN 54 H Creatinine 3.93 H Estimated GFR 16 L POC Glucose 211 H Random Glucose 117 H D Calcium 7.0 L* Prot Corrected Calcium 7.7 L Total Bilirubin 5.9 H AST 42 H ALT 26 Alkaline Phosphatase 138 H Total Protein 5.8 L Albumin 2.0 L 02/11/18 11:49 WBC RBC Hgb Hct MCV MCH MCHC RDW Plt Count MPV Prelim Diff (Auto) Neut % (Auto) Lymph % (Auto) [place] % (Auto) Eos % (Auto) Baso % (Auto) Neut # (Auto) Lymph # (Auto) [place] # (Auto) Eos # (Auto) Baso # (Auto) WBC Differential Seg Neuts % (Manual) Band Neuts % (Manual) Lymphocytes % (Manual) Monocytes % (Manual) Abs Neuts (Manual) Differential Comment Toxic Granulation Platelet Estimate Platelet Morphology Stomatocytes Sodium Potassium Chloride Carbon Dioxide Anion Gap BUN Creatinine Estimated GFR POC Glucose 134 H Random Glucose Calcium Prot Corrected Calcium Total Bilirubin AST ALT Alkaline Phosphatase Total Protein Albumin Microbiology 02/08/18 14:02 Blood - Peripheral Aerobic Blood Culture - Preliminary Staphylococcus coag negative 02/08/18 14:02 Blood - Peripheral Anaerobic Blood Culture - Preliminary No growth in 3 days 02/08/18 13:55 Blood - Peripheral Aerobic Blood Culture - Preliminary Staphylococcus coag negative 02/08/18 13:55 Blood - Peripheral Anaerobic Blood Culture - Preliminary No growth in 3 days 02/07/18 03:59 Blood - Peripheral Aerobic Blood Culture - Final Staphylococcus aureus 02/07/18 03:59 Blood - Peripheral Anaerobic Blood Culture - Preliminary No growth in 4 days 02/06/18 10:59 Blood - Peripheral Aerobic Blood Culture - Final Staphylococcus aureus 02/06/18 10:59 Blood - Peripheral Anaerobic Blood Culture - Final No growth in 5 days - Imaging Impressions Chest X-Ray 02/10/18 00:00 CONCLUSION: Stable examination compared to the prior study. Cholangiopancreatography MRI 02/10/18 00:00 CONCLUSION: No evidence of biliary obstruction <Helene Galvin - Last Filed: 02/11/18 14:17> Assessment and Plan (1) Anemia Status: Acute Code(s): D64.9 - Anemia, unspecified (2) Leukocytosis Status: Acute Code(s): D72.829 - Elevated white blood cell count, unspecified (3) Cholelithiasis Status: Acute Code(s): K80.20 - Calculus of gallbladder without cholecystitis without obstruction - Plan Assessment: - Elevated LFTs likely secondary to shocked liver in background of ETOH abuse LFTs from ER visit 01/26 AST-99 ALT-46 Alk phos-108 T bili-1.4 Returned on 02/02 AST-1685 ALT-307 Alk phos-66 T bili-1.7 Pt found unresponsive at home with known history of ETOH abuse, on admission pt was in SVT with noted extreme hypotension and head animal trainer noted persistent hypotension and shock requiring Levo gtt. Unable to obtain history from pt because he is orally intubated, on sedation but awake. According to notes pt was drinking greater than a pint daily. Abdomen US (02/04) Prominent gallbladder with small stones and minimal gallbladder wall thickening. Patient is not tender over the gallbladder. Echogenic liver. Small right pleural effusion. CT abdomen and pelvis WO IV contrast (02/03) Moderate-sized right pleural effusion. Two calcifications in the expected region of the distal common bile duct or pancreatic head measuring 3 mm each. Bibasilar atelectasis and/or infiltrates which are slightly worse on the right than the left. Cardiomegaly. Left adrenal nodule measuring 2.6 x 2.3 cm consistent with probable adrenal adenoma or cyst. Small amount of ascites. Probable 2.3 cm right renal cyst. Liver Work up: Hepatitis panel negative. GARY negative. AAT-433 Ceruloplasmin-69 AFP-0.8 Iron-30 TIBC-126 %Sat-23.8 Ferritin-2246 - Thrombocytopenia- secondary to liver disease - Hypoalbuminemia- albumin 1.5 - pt on replacement - ANIBAL, rhabdomyolysis, obstructive uropathy, BPH- Pt on HD- nephorlogy following Anemia, probable acute on chronic but need to rule out any source of bleeding when patient is stable (02/10) T bili and alk phos have increased and fluctuated some since admission. Give CT findings of calcifications in expected region on CBD or pancreatic head, pt would likely benefit from MRCP when stable to transport. 02/11/2018 patient appears agitated continues with ventilator support noted per staff 2.5 L pulled off from dialysis yesterday. Probable constipation without bowel movement times 1 week? Currently sinus rhythm but noted to be in and out of atrial dysrhythmias. Continues nutritional support with Nepro at 20 cc an hour labs show current hemoglobin 6.9 noted EtOH abuse with cirrhosis large from abdomen. Noted palliative care consult appreciated. MRCP showed no biliary obstruction. Patient continues to be critically ill. No family present. May consider EGD, but currently patient is too unstable. Continue to monitor hemoglobin for any source of GI bleed. Currently 6.9 today Plan Diet, Nepro at 20 cc an hour per NG tube Aggressive bowel management with mag citrate and suppositories for today. If no results fleets enema as needed Check for impaction Monitor labs Further recommendations based on clinical course and results of above Patient has been seen and examined by myself and Dr. Galvin and this note is written on her behalf <Brittany Willard - Last Filed: 02/11/18 13:53> (1) Anemia Status: Acute Code(s): D64.9 - Anemia, unspecified (2) Leukocytosis Status: Acute Code(s): D72.829 - Elevated white blood cell count, unspecified (3) Cholelithiasis Status: Acute Code(s): K80.20 - Calculus of gallbladder without cholecystitis without obstruction - Attending Attestation The exam, history, and the medical decision-making described in the above note were completed with the assistance of the mid-level provider. I reviewed and agree with the findings presented. I attest that I had a [id number] encounter with the patient on the same day, and personally performed and documented my assessment and findings in the medical record. seen, examined agree with above may need eus /ercp when more stable abdominal x-ray <Helene Galvin - Last Filed: 02/11/18 14:17>
[2018-02-11 14:19] LABS: Smooth Muscle Total Auto Abs Negative (Negative)
--- NOTE | 2018-02-11 15:36 | P.PNCA ---
Addendum entered and electronically signed by FREEDOM Macedo 02/11/18 16:25: The patient was seen and evaluated by Dr. Delcid who participated in care, management and decision making. Original Note: <Brianda Lyn - Last Filed: 02/11/18 15:21> Subjective Interval history: pt currently intubated at this time. VSS stable. No acute distress at this time. Physical Exam Vital signs: Vital Signs 02/10/18 16:00 02/10/18 17:45 02/10/18 17:47 Temperature 99 F Pulse Rate 82 74 73 Respiratory Rate 18 0 L 0 L Blood Pressure 102/51 L 95/54 L 95/56 L Pulse Oximetry 98 97 98 02/10/18 17:50 02/10/18 17:52 02/10/18 17:55 Temperature Pulse Rate 73 74 73 Respiratory Rate 0 L 0 L 0 L Blood Pressure 95/55 L 95/56 L 95/55 L Pulse Oximetry 97 98 97 02/10/18 17:57 02/10/18 18:00 02/10/18 18:02 Temperature Pulse Rate 73 73 73 Respiratory Rate 0 L 0 L 0 L Blood Pressure 96/55 L 95/53 L 96/54 L Pulse Oximetry 97 98 98 02/10/18 18:05 02/10/18 18:07 02/10/18 18:10 Temperature Pulse Rate 73 73 73 Respiratory Rate 0 L 0 L 0 L Blood Pressure 96/54 L 98/54 L 98/54 L Pulse Oximetry 98 98 97 02/10/18 18:12 02/10/18 18:15 02/10/18 18:18 Temperature Pulse Rate 73 73 76 Respiratory Rate 0 L 0 L 11 L Blood Pressure 96/53 L 96/55 L 104/62 Pulse Oximetry 97 97 94 L 02/10/18 18:20 02/10/18 18:22 02/10/18 18:25 Temperature Pulse Rate 76 76 76 Respiratory Rate 10 L 11 L 14 Blood Pressure 111/61 116/59 L 110/61 Pulse Oximetry 96 97 97 02/10/18 18:28 02/10/18 18:30 02/10/18 18:33 Temperature Pulse Rate 76 77 76 Respiratory Rate 10 L 15 14 Blood Pressure 114/60 105/61 105/55 L Pulse Oximetry 97 97 97 02/10/18 18:35 02/10/18 18:38 02/10/18 18:40 Temperature Pulse Rate 76 76 76 Respiratory Rate 18 14 15 Blood Pressure 113/55 L 114/55 L 111/59 L Pulse Oximetry 97 96 96 02/10/18 19:00 02/10/18 20:00 02/10/18 20:40 Temperature Pulse Rate 73 71 Respiratory Rate 18 12 19 Blood Pressure Pulse Oximetry 98 97 97 02/10/18 20:43 02/10/18 20:49 02/10/18 20:54 Temperature Pulse Rate 69 71 72 Respiratory Rate 18 9 L 4 L Blood Pressure 107/62 111/59 L Pulse Oximetry 99 98 02/10/18 21:00 02/10/18 22:05 02/10/18 22:06 Temperature Pulse Rate 69 77 76 Respiratory Rate 13 17 37 H Blood Pressure 97/52 L 104/58 L Pulse Oximetry 100 99 02/10/18 23:00 02/10/18 23:34 02/11/18 00:00 Temperature 99.0 F Pulse Rate 72 71 70 Respiratory Rate 18 18 18 Blood Pressure 91/52 L 92/54 L Pulse Oximetry 95 95 97 02/11/18 00:11 02/11/18 00:31 02/11/18 01:38 Temperature Pulse Rate 73 75 Respiratory Rate 20 19 20 Blood Pressure 107/62 114/72 Pulse Oximetry 97 95 02/11/18 02:00 02/11/18 04:00 02/11/18 04:02 Temperature Pulse Rate 69 69 69 Respiratory Rate 18 Blood Pressure Pulse Oximetry 96 02/11/18 06:00 02/11/18 09:33 02/11/18 11:52 Temperature Pulse Rate 71 69 Respiratory Rate 19 18 Blood Pressure Pulse Oximetry 96 94 L Intake & Output 02/10/18 02/11/18 02/11/18 18:59 06:59 18:59 Intake Total 1000 / 1000 1170 / 1170 300 / 300 Output Total 0 / 0 0 / 0 2500 / 2500 Balance 1000 / 1000 1170 / 1170 -2200 / -2200 Weight 107 kg Intake: IV 1000 / 1000 1170 / 1170 300 / 300 Diprivan 1000 mg/100 ml Inj 1, 100 / 100 170 / 170 000 mg In 100 ml @ 5 MCG/KG/MIN 2.85 mls/hr IV.CONT TITRATE PRN Rx#:[id number] fentaNYL 10 mcg/mL Premix Drip 250 / 250 500 / 500 2,500 mcg In 250 ml @ 50 MCG/HR 5 mls/hr IV.CONT TITRATE PRN Rx#:[id number] Flexbumin 25% Inj 100 ML @ 60 200 / 200 mls/hr IV.SIG WITH DIALYSIS LEROY Rx#:[id number] Cordarone Inj 450 MG In NS Inj 250 / 250 241 ML @ 0.5 MG/MIN 16.66 mls/ hr IV.SIG .Q15H1M LEROY Rx#: [id number] Teflaro Inj 600 MG In NS Inj 100 / 100 100 / 100 100 / 100 100 ML @ 100 mls/hr IV.SIG Q8H LEROY Rx#:[id number] Prostaphlin Inj 2 GM In NS Inj 300 / 300 400 / 400 100 ML @ 200 mls/hr IV.SIG Q4H LEROY Rx#:[id number] Tube Feeding 0 / 0 Output: Hemodialysis Amount 2500 / 2500 Urine Amount (Catheter) 0 / 0 0 / 0 Coude 0 / 0 0 / 0 Chest Tube Drainage 0 / 0 #1 Right Anterior 0 / 0 Other: # Bowel Movements 0 - Constitutional no acute distress - Routine Respiratory Exam Present: patient mechanically ventilated. Absent: wheezes - Routine Cardiovascular Exam Present: RRR. Absent: gallop, rubs - Routine Extremities Exam Present: pulses intact, normal capillary refill - Routine Skin Exam Absent: cyanosis, jaundice - Routine Neurological Exam pt sedated - Urinary Catheter Management Coude Cath placed during this visit: yes Reason for continuing: Hourly intake/output Insertion date: 02/02/18 Assessment and Plan - Assessment (1) Encephalopathy Code(s): G93.40 - Encephalopathy, unspecified Status: Acute (2) Septic shock Code(s): A41.9 - Sepsis, unspecified organism; R65.21 - Severe sepsis with septic shock Status: Acute (3) Atrial flutter Code(s): I48.92 - Unspecified atrial flutter Status: Acute (4) ANIBAL (acute kidney injury) Code(s): N17.9 - Acute kidney failure, unspecified Status: Acute (5) Respiratory failure Code(s): J96.90 - Respiratory failure, unspecified, unspecified whether with hypoxia or hypercapnia Status: Acute - Plan Pt is being switched to Precedex for sedation. EMILY was performed at bedside on which patient tolerated well, no evidence of endocarditis at this time. Pt stable on Cardizem. Continue with current treatment plan. <Kellen Delcid - Last Filed: 02/11/18 16:42> Physical Exam Vital signs: Vital Signs 02/10/18 17:45 02/10/18 17:47 02/10/18 17:50 Temperature Pulse Rate 74 73 73 Respiratory Rate 0 L 0 L 0 L Blood Pressure 95/54 L 95/56 L 95/55 L Pulse Oximetry 97 98 97 02/10/18 17:52 02/10/18 17:55 02/10/18 17:57 Temperature Pulse Rate 74 73 73 Respiratory Rate 0 L 0 L 0 L Blood Pressure 95/56 L 95/55 L 96/55 L Pulse Oximetry 98 97 97 02/10/18 18:00 02/10/18 18:02 02/10/18 18:05 Temperature Pulse Rate 73 73 73 Respiratory Rate 0 L 0 L 0 L Blood Pressure 95/53 L 96/54 L 96/54 L Pulse Oximetry 98 98 98 02/10/18 18:07 02/10/18 18:10 02/10/18 18:12 Temperature Pulse Rate 73 73 73 Respiratory Rate 0 L 0 L 0 L Blood Pressure 98/54 L 98/54 L 96/53 L Pulse Oximetry 98 97 97 02/10/18 18:15 02/10/18 18:18 02/10/18 18:20 Temperature Pulse Rate 73 76 76 Respiratory Rate 0 L 11 L 10 L Blood Pressure 96/55 L 104/62 111/61 Pulse Oximetry 97 94 L 96 02/10/18 18:22 02/10/18 18:25 02/10/18 18:28 Temperature Pulse Rate 76 76 76 Respiratory Rate 11 L 14 10 L Blood Pressure 116/59 L 110/61 114/60 Pulse Oximetry 97 97 97 02/10/18 18:30 02/10/18 18:33 02/10/18 18:35 Temperature Pulse Rate 77 76 76 Respiratory Rate 15 14 18 Blood Pressure 105/61 105/55 L 113/55 L Pulse Oximetry 97 97 97 02/10/18 18:38 02/10/18 18:40 02/10/18 19:00 Temperature Pulse Rate 76 76 73 Respiratory Rate 14 15 18 Blood Pressure 114/55 L 111/59 L Pulse Oximetry 96 96 98 02/10/18 20:00 02/10/18 20:40 02/10/18 20:43 Temperature Pulse Rate 71 69 Respiratory Rate 12 19 18 Blood Pressure Pulse Oximetry 97 97 02/10/18 20:49 02/10/18 20:54 02/10/18 21:00 Temperature Pulse Rate 71 72 69 Respiratory Rate 9 L 4 L 13 Blood Pressure 107/62 111/59 L 97/52 L Pulse Oximetry 99 98 100 02/10/18 22:05 02/10/18 22:06 02/10/18 23:00 Temperature Pulse Rate 77 76 72 Respiratory Rate 17 37 H 18 Blood Pressure 104/58 L Pulse Oximetry 99 95 02/10/18 23:34 02/11/18 00:00 02/11/18 00:11 Temperature 99.0 F Pulse Rate 71 70 73 Respiratory Rate 18 18 20 Blood Pressure 91/52 L 92/54 L 107/62 Pulse Oximetry 95 97 97 02/11/18 00:31 02/11/18 01:38 02/11/18 02:00 Temperature Pulse Rate 75 69 Respiratory Rate 19 20 Blood Pressure 114/72 Pulse Oximetry 95 02/11/18 04:00 02/11/18 04:02 02/11/18 06:00 Temperature Pulse Rate 69 69 71 Respiratory Rate 18 Blood Pressure Pulse Oximetry 96 02/11/18 09:33 02/11/18 11:52 02/11/18 15:42 Temperature Pulse Rate 69 70 Respiratory Rate 19 18 18 Blood Pressure Pulse Oximetry 96 94 L 97 Intake & Output 02/10/18 02/11/18 02/11/18 18:59 06:59 18:59 Intake Total 1000 / 1000 1170 / 1170 400 / 400 Output Total 0 / 0 0 / 0 2500 / 2500 Balance 1000 / 1000 1170 / 1170 -2100 / -2100 Weight 235 lb 14.314 oz Intake: IV 1000 / 1000 1170 / 1170 400 / 400 Diprivan 1000 mg/100 ml Inj 1, 100 / 100 170 / 170 000 mg In 100 ml @ 5 MCG/KG/MIN 2.85 mls/hr IV.CONT TITRATE PRN Rx#:[id number] fentaNYL 10 mcg/mL Premix Drip 250 / 250 500 / 500 2,500 mcg In 250 ml @ 50 MCG/HR 5 mls/hr IV.CONT TITRATE PRN Rx#:[id number] Flexbumin 25% Inj 100 ML @ 60 200 / 200 mls/hr IV.SIG WITH DIALYSIS LEROY Rx#:[id number] Cordarone Inj 450 MG In NS Inj 250 / 250 241 ML @ 0.5 MG/MIN 16.66 mls/ hr IV.SIG .Q15H1M LEROY Rx#: [id number] Teflaro Inj 600 MG In NS Inj 100 / 100 100 / 100 100 / 100 100 ML @ 100 mls/hr IV.SIG Q8H LEROY Rx#:[id number] Prostaphlin Inj 2 GM In NS Inj 300 / 300 400 / 400 100 / 100 100 ML @ 200 mls/hr IV.SIG Q4H LEROY Rx#:[id number] Tube Feeding 0 / 0 Output: Hemodialysis Amount 2500 / 2500 Urine Amount (Catheter) 0 / 0 0 / 0 Coude 0 / 0 0 / 0 Chest Tube Drainage 0 / 0 #1 Right Anterior 0 / 0 Other: # Bowel Movements 0 - Urinary Catheter Management Coude Cath placed during this visit: no Assessment and Plan - Assessment (1) Encephalopathy Code(s): G93.40 - Encephalopathy, unspecified Status: Acute (2) Septic shock Code(s): A41.9 - Sepsis, unspecified organism; R65.21 - Severe sepsis with septic shock Status: Acute (3) Atrial flutter Code(s): I48.92 - Unspecified atrial flutter Status: Acute (4) ANIBAL (acute kidney injury) Code(s): N17.9 - Acute kidney failure, unspecified Status: Acute (5) Respiratory failure Code(s): J96.90 - Respiratory failure, unspecified, unspecified whether with hypoxia or hypercapnia Status: Acute - Attending Attestation Patient seen and examined. I reviewed and agree with the findings and plan presented. Continue current program including antibiotics as per ID. Wean vent as tolerated. EMILY with no evidence of endocarditis.
--- NOTE | 2018-02-11 15:39 | XR ---
EXAM DATE: 02/11/2018 3:34 PM EDT AGE/SEX: 57 years / Male INDICATIONS: Abdomen distention CLINICAL DATA: This is the patient's initial encounter. Patient reports that signs and symptoms have been present for 1 week and indicates a pain score of Nonresponsive. MEDICAL/SURGICAL HISTORY: . Hypertension None. COMPARISON: No prior exams available for comparison. FINDINGS: There is an NG tube in the stomach. There is a rectal tube in the rectum. There is no abnormal dilata tion of the small bowel. There is some mildly dilated loops of colon with some air. There does appear to be some stool in the colon. Multiple surgical clips are seen deep in the pelvis. There is evidenc e of previous lumbar spinal surgery with fusion at L5-S1. CONCLUSION: Nonspecific bowel gas pattern with some mildly dilated loops of colon. No definite mechanical obstruc tion is demonstrated. Electronically signed by: Khang Arguello MD 02/11/2018 3:38 PM EDT
--- NOTE | 2018-02-11 15:51 | P.PNID ---
Subjective Remarks: ID COVERAGE Most of the history of optimal review of medical records. is a 57-year-old male with very strong current history of alcohol abuse. His brother and [id number] were in the room report that he drinks greater than a pint for at least 25 years. Patient is a resident of [place] and reportedly moved here to be close to his brother. [facility]. Patient's brother reports that they often go to patient's house for safety checks. The last time he was reportedly normal was 5 days prior to him coming to the hospital. When patient' s brother went to visit him on the day of admission patient was markedly obtunded and difficult to arouse and had some matting of his eyelids and brother called EMS reportedly. When patient was seen by EMS she was found to be significantly encephalopathic and there was a concern for airway protection and therefore he was intubated for acute hypoxemia and hypercarbia. Reportedly was also an SVT with a heart rate greater than 200. In the emergency department he was cardioverted and was hypotensive requiring pressors. Patient was admitted to the ICU under critical care team. Patient is currently on vasopressors Larry-Synephrine at 100 mics, he is also on a propofol drip for sedation. He is currently on a ventilator with AC 50% FiO2, PEEP of 5 not much respiratory secretions noted. He also has a right-sided chest tube which was placed when a large effusion was noted on the CT scan. Per description by RN there was a lot of yellow looking purulent material noted when the chest tube was placed. Urology has been consulted because Ennis was difficult to be placed. Patient does not have much in terms of her urine output and is currently at 50 cc. GI is following patient as well. Sepsis workup was initiated on admission infectious diseases consulted for evaluation and management of septic shock secondary to possibly right-sided empyema. Overnight events reviewed with RN. Low grade fevers. Off pressors. Had HD y. Arterial line removed yday. All blood cultures with staph aureus, MSSA Pleural fluid with staph aureus, MSSA Urine culture with MSSA Sputum with Pseudomonas, E coli and MSSA No generalized rash No diarrhea. No BM. H/H dropped but no obvious bleeding. Antibiotics: Cefepime IV Flagyl IV Oxacillin IV Teflaro IV Lines: Line sites ok Past Medical History: Diabetes Hypertension Significant EtOH history some shoulder surgery Allergies/Adverse Reactions: Allergies lisinopril Allergy (Severe, Verified 02/05/18 06:22) airway edema Sulfa (Sulfonamide Antibiotics) Allergy (Severe, Verified 02/05/18 06:22) Edema, Localized AIRWAY EDEMA Objective Vital Signs 02/10/18 16:00 02/10/18 17:45 02/10/18 17:47 Temperature 99 F Pulse Rate 82 74 73 Respiratory Rate 18 0 L 0 L Blood Pressure 102/51 L 95/54 L 95/56 L Pulse Oximetry 98 97 98 02/10/18 17:50 02/10/18 17:52 02/10/18 17:55 Temperature Pulse Rate 73 74 73 Respiratory Rate 0 L 0 L 0 L Blood Pressure 95/55 L 95/56 L 95/55 L Pulse Oximetry 97 98 97 02/10/18 17:57 02/10/18 18:00 02/10/18 18:02 Temperature Pulse Rate 73 73 73 Respiratory Rate 0 L 0 L 0 L Blood Pressure 96/55 L 95/53 L 96/54 L Pulse Oximetry 97 98 98 02/10/18 18:05 02/10/18 18:07 02/10/18 18:10 Temperature Pulse Rate 73 73 73 Respiratory Rate 0 L 0 L 0 L Blood Pressure 96/54 L 98/54 L 98/54 L Pulse Oximetry 98 98 97 02/10/18 18:12 02/10/18 18:15 02/10/18 18:18 Temperature Pulse Rate 73 73 76 Respiratory Rate 0 L 0 L 11 L Blood Pressure 96/53 L 96/55 L 104/62 Pulse Oximetry 97 97 94 L 02/10/18 18:20 02/10/18 18:22 02/10/18 18:25 Temperature Pulse Rate 76 76 76 Respiratory Rate 10 L 11 L 14 Blood Pressure 111/61 116/59 L 110/61 Pulse Oximetry 96 97 97 02/10/18 18:28 02/10/18 18:30 02/10/18 18:33 Temperature Pulse Rate 76 77 76 Respiratory Rate 10 L 15 14 Blood Pressure 114/60 105/61 105/55 L Pulse Oximetry 97 97 97 02/10/18 18:35 02/10/18 18:38 02/10/18 18:40 Temperature Pulse Rate 76 76 76 Respiratory Rate 18 14 15 Blood Pressure 113/55 L 114/55 L 111/59 L Pulse Oximetry 97 96 96 02/10/18 19:00 02/10/18 20:00 02/10/18 20:40 Temperature Pulse Rate 73 71 Respiratory Rate 18 12 19 Blood Pressure Pulse Oximetry 98 97 97 02/10/18 20:43 02/10/18 20:49 02/10/18 20:54 Temperature Pulse Rate 69 71 72 Respiratory Rate 18 9 L 4 L Blood Pressure 107/62 111/59 L Pulse Oximetry 99 98 02/10/18 21:00 02/10/18 22:05 02/10/18 22:06 Temperature Pulse Rate 69 77 76 Respiratory Rate 13 17 37 H Blood Pressure 97/52 L 104/58 L Pulse Oximetry 100 99 02/10/18 23:00 02/10/18 23:34 02/11/18 00:00 Temperature 99.0 F Pulse Rate 72 71 70 Respiratory Rate 18 18 18 Blood Pressure 91/52 L 92/54 L Pulse Oximetry 95 95 97 02/11/18 00:11 02/11/18 00:31 02/11/18 01:38 Temperature Pulse Rate 73 75 Respiratory Rate 20 19 20 Blood Pressure 107/62 114/72 Pulse Oximetry 97 95 02/11/18 02:00 02/11/18 04:00 02/11/18 04:02 Temperature Pulse Rate 69 69 69 Respiratory Rate 18 Blood Pressure Pulse Oximetry 96 02/11/18 06:00 02/11/18 09:33 02/11/18 11:52 Temperature Pulse Rate 71 69 Respiratory Rate 19 18 Blood Pressure Pulse Oximetry 96 94 L 02/11/18 15:42 Temperature Pulse Rate 70 Respiratory Rate 18 Blood Pressure Pulse Oximetry 97 Intake & Output 02/10/18 02/11/18 02/11/18 18:59 06:59 18:59 Intake Total 1000 / 1000 1170 / 1170 300 / 300 Output Total 0 / 0 0 / 0 2500 / 2500 Balance 1000 / 1000 1170 / 1170 -2200 / -2200 Weight 107 kg Intake: IV 1000 / 1000 1170 / 1170 300 / 300 Diprivan 1000 mg/100 ml Inj 1, 100 / 100 170 / 170 000 mg In 100 ml @ 5 MCG/KG/MIN 2.85 mls/hr IV.CONT TITRATE PRN Rx#:[id number] fentaNYL 10 mcg/mL Premix Drip 250 / 250 500 / 500 2,500 mcg In 250 ml @ 50 MCG/HR 5 mls/hr IV.CONT TITRATE PRN Rx#:[id number] Flexbumin 25% Inj 100 ML @ 60 200 / 200 mls/hr IV.SIG WITH DIALYSIS LEROY Rx#:[id number] Cordarone Inj 450 MG In NS Inj 250 / 250 241 ML @ 0.5 MG/MIN 16.66 mls/ hr IV.SIG .Q15H1M LEROY Rx#: [id number] Teflaro Inj 600 MG In NS Inj 100 / 100 100 / 100 100 / 100 100 ML @ 100 mls/hr IV.SIG Q8H LEROY Rx#:[id number] Prostaphlin Inj 2 GM In NS Inj 300 / 300 400 / 400 100 ML @ 200 mls/hr IV.SIG Q4H LEROY Rx#:[id number] Tube Feeding 0 / 0 Output: Hemodialysis Amount 2500 / 2500 Urine Amount (Catheter) 0 / 0 0 / 0 Coude 0 / 0 0 / 0 Chest Tube Drainage 0 / 0 #1 Right Anterior 0 / 0 Other: # Bowel Movements 0 02/08/18 14:02 Blood - Peripheral Aerobic Blood Culture - Preliminary Staphylococcus coag negative 02/08/18 14:02 Blood - Peripheral Anaerobic Blood Culture - Preliminary No growth in 3 days 02/08/18 13:55 Blood - Peripheral Aerobic Blood Culture - Preliminary Staphylococcus coag negative 02/08/18 13:55 Blood - Peripheral Anaerobic Blood Culture - Preliminary No growth in 3 days 02/07/18 03:59 Blood - Peripheral Aerobic Blood Culture - Final Staphylococcus aureus 02/07/18 03:59 Blood - Peripheral Anaerobic Blood Culture - Preliminary No growth in 4 days 02/06/18 10:59 Blood - Peripheral Aerobic Blood Culture - Final Staphylococcus aureus 02/06/18 10:59 Blood - Peripheral Anaerobic Blood Culture - Final No growth in 5 days 02/11/18 04:50 Blood - Peripheral Aerobic Blood Culture - Pending 02/11/18 04:50 Blood - Peripheral Anaerobic Blood Culture - Pending 02/11/18 04:57 Blood - Peripheral Aerobic Blood Culture - Pending 02/11/18 04:57 Blood - Peripheral Anaerobic Blood Culture - Pending 02/08/18 12:30 Catheter Tip - Central Venous Line Wound Culture - Final No growth in 48 hours Lab - Hematology Results 02/10/18 02/10/18 02/10/18 09:30 10:54 17:20 WBC 5.8 RBC 2.38 L Hgb 7.2 L 7.0 L 7.0 L Hct 21.7 L 21.0 L 21.0 L MCV 91.0 MCH 30.4 MCHC 33.4 RDW 17.5 H Plt Count 51 L D MPV 10.3 Prelim Diff (Auto) Neut % (Auto) Lymph % (Auto) Cecil % (Auto) Eos % (Auto) Baso % (Auto) Neut # (Auto) Lymph # (Auto) Cecil # (Auto) Eos # (Auto) Baso # (Auto) WBC Differential Seg Neuts % (Manual) Band Neuts % (Manual) Lymphocytes % (Manual) Monocytes % (Manual) Abs Neuts (Manual) Differential Comment Toxic Granulation Platelet Estimate Platelet Morphology Stomatocytes 02/11/18 11:34 WBC 4.2 RBC 2.28 L Hgb 6.9 L* Hct 20.5 L* MCV 89.7 MCH 30.1 MCHC 33.6 RDW 18.3 H Plt Count 66 L MPV 10.2 Prelim Diff (Auto) Slide review pending Neut % (Auto) 83.9 H Lymph % (Auto) 10.5 Cecil % (Auto) 4.3 Eos % (Auto) 0.6 Baso % (Auto) 0.7 Neut # (Auto) 3.5 Lymph # (Auto) 0.4 L Cecil # (Auto) 0.2 Eos # (Auto) 0.0 Baso # (Auto) 0.0 WBC Differential Manual diff final Seg Neuts % (Manual) 82 H Band Neuts % (Manual) 12 H Lymphocytes % (Manual) 2 L Monocytes % (Manual) 4 Abs Neuts (Manual) 3.9 Differential Comment . Toxic Granulation 1+ H Platelet Estimate Low L Platelet Morphology Normal Stomatocytes 2+ H Lab - Chemistry Results 02/09/18 02/09/18 02/10/18 16:39 21:18 08:00 Sodium Potassium Chloride Carbon Dioxide Anion Gap BUN Creatinine Estimated GFR POC Glucose 261 H 254 H 256 H Random Glucose Calcium Prot Corrected Calcium Total Bilirubin AST ALT Alkaline Phosphatase Total Protein Albumin 02/10/18 02/10/18 02/10/18 09:30 11:48 17:24 Sodium 144 Potassium 4.1 Chloride 107 Carbon Dioxide 22.5 Anion Gap 15 BUN 73 H Creatinine 4.71 H Estimated GFR 13 L POC Glucose 237 H 238 H Random Glucose 234 H Calcium 7.1 L* D Prot Corrected Calcium 8.1 L Total Bilirubin 6.8 H AST 56 H ALT 32 Alkaline Phosphatase 156 H Total Protein 5.3 L D Albumin 1.5 L D 02/10/18 02/11/18 02/11/18 23:59 06:14 11:34 Sodium 145 Potassium 3.9 Chloride 106 Carbon Dioxide 24.4 Anion Gap 15 BUN 54 H Creatinine 3.93 H Estimated GFR 16 L POC Glucose 181 H 211 H Random Glucose 117 H D Calcium 7.0 L* Prot Corrected Calcium 7.7 L Total Bilirubin 5.9 H AST 42 H ALT 26 Alkaline Phosphatase 138 H Total Protein 5.8 L Albumin 2.0 L 02/11/18 11:49 Sodium Potassium Chloride Carbon Dioxide Anion Gap BUN Creatinine Estimated GFR POC Glucose 134 H Random Glucose Calcium Prot Corrected Calcium Total Bilirubin AST ALT Alkaline Phosphatase Total Protein Albumin Imaging: ITS Impressions Chest X-Ray 02/10/18 00:00 CONCLUSION: Stable examination compared to the prior study. Cholangiopancreatography MRI 02/10/18 00:00 CONCLUSION: No evidence of biliary obstruction Abdomen X-Ray 02/11/18 00:00 CONCLUSION: Nonspecific bowel gas pattern with some mildly dilated loops of colon. No definite mechanical obstruction is demonstrated. Physical Exam: GENERAL: Sedated, on the vent, NAD SKIN: Cool and dry, no generalized rash HEAD: Atraumatic. Normocephalic. No temporal or scalp tenderness. EYES: Pupils equal round and reactive. Scleral icterus. No injection or drainage. No petechia ENT: Orally intubated NECK: Trachea midline. Supple, nontender, no meningeal signs. CARDIOVASCULAR: HS audible. RESPIRATORY: AE decreased in the bases R>L. Right side CT with serous fluid noted GASTROINTESTINAL: Abdomen distended, some grimacing during palpation MUSCULOSKELETAL: Extremities without clubbing, cyanosis. Septic emboli to feet noted. Has a large hemorrhagic bullous lesion on L palm NEUROLOGICAL: Sedated Psych could not be assessed IV line sites ok. Assessment and Plan - Plan MSSA sepsis, Septic Shock, on pressors Right side Pulm Empyema, MSSA Rule out endocarditis. Polymicrobial PNA ( PSAE, second GNR, Staph aureus) also likely aspiration in setting of alcoholism Cardiomegaly: ? alcohol related vs CAD. MSSA in urine. Acute resp failure on vent Acute oliguric renal failure: prerenal, sepsis. - on CVVHD Acute metabolic encephalopathy: sepsis, metabolic. Leukocytosis Thrombocytopenia: sepsis, no DIC RECOMMENDATION Continue IV Oxacillin for MSSA Continue IV Cefepime for PSAE and E coli Continue Teflaro IV (as second MSSA agent pending clearance of bacteremia) Repeat BC to document clearing Sputum cultures. If fevers persist will get CT C/A/P to look for evidence of further dissemination. EMILY negative. Follow cultures. Follow EMILY results. Monitor progress D/W RN Prognosis guarded.
--- NOTE | 2018-02-11 16:28 | P.PNNP ---
Subjective Interval history: Orally intubated on mechanically ventilation. FiO2 at 40 %. <Maria MShannenJeanna - Last Filed: 02/11/18 16:14> Physical Exam Vital signs: Vital Signs 02/10/18 17:45 02/10/18 17:47 02/10/18 17:50 Temperature Pulse Rate 74 73 73 Respiratory Rate 0 L 0 L 0 L Blood Pressure 95/54 L 95/56 L 95/55 L Pulse Oximetry 97 98 97 02/10/18 17:52 02/10/18 17:55 02/10/18 17:57 Temperature Pulse Rate 74 73 73 Respiratory Rate 0 L 0 L 0 L Blood Pressure 95/56 L 95/55 L 96/55 L Pulse Oximetry 98 97 97 02/10/18 18:00 02/10/18 18:02 02/10/18 18:05 Temperature Pulse Rate 73 73 73 Respiratory Rate 0 L 0 L 0 L Blood Pressure 95/53 L 96/54 L 96/54 L Pulse Oximetry 98 98 98 02/10/18 18:07 02/10/18 18:10 02/10/18 18:12 Temperature Pulse Rate 73 73 73 Respiratory Rate 0 L 0 L 0 L Blood Pressure 98/54 L 98/54 L 96/53 L Pulse Oximetry 98 97 97 02/10/18 18:15 02/10/18 18:18 02/10/18 18:20 Temperature Pulse Rate 73 76 76 Respiratory Rate 0 L 11 L 10 L Blood Pressure 96/55 L 104/62 111/61 Pulse Oximetry 97 94 L 96 02/10/18 18:22 02/10/18 18:25 02/10/18 18:28 Temperature Pulse Rate 76 76 76 Respiratory Rate 11 L 14 10 L Blood Pressure 116/59 L 110/61 114/60 Pulse Oximetry 97 97 97 02/10/18 18:30 02/10/18 18:33 02/10/18 18:35 Temperature Pulse Rate 77 76 76 Respiratory Rate 15 14 18 Blood Pressure 105/61 105/55 L 113/55 L Pulse Oximetry 97 97 97 02/10/18 18:38 02/10/18 18:40 02/10/18 19:00 Temperature Pulse Rate 76 76 73 Respiratory Rate 14 15 18 Blood Pressure 114/55 L 111/59 L Pulse Oximetry 96 96 98 02/10/18 20:00 02/10/18 20:40 02/10/18 20:43 Temperature Pulse Rate 71 69 Respiratory Rate 12 19 18 Blood Pressure Pulse Oximetry 97 97 02/10/18 20:49 02/10/18 20:54 02/10/18 21:00 Temperature Pulse Rate 71 72 69 Respiratory Rate 9 L 4 L 13 Blood Pressure 107/62 111/59 L 97/52 L Pulse Oximetry 99 98 100 02/10/18 22:05 02/10/18 22:06 02/10/18 23:00 Temperature Pulse Rate 77 76 72 Respiratory Rate 17 37 H 18 Blood Pressure 104/58 L Pulse Oximetry 99 95 02/10/18 23:34 02/11/18 00:00 02/11/18 00:11 Temperature 99.0 F Pulse Rate 71 70 73 Respiratory Rate 18 18 20 Blood Pressure 91/52 L 92/54 L 107/62 Pulse Oximetry 95 97 97 02/11/18 00:31 02/11/18 01:38 02/11/18 02:00 Temperature Pulse Rate 75 69 Respiratory Rate 19 20 Blood Pressure 114/72 Pulse Oximetry 95 02/11/18 04:00 02/11/18 04:02 02/11/18 06:00 Temperature Pulse Rate 69 69 71 Respiratory Rate 18 Blood Pressure Pulse Oximetry 96 02/11/18 09:33 02/11/18 11:52 02/11/18 15:42 Temperature Pulse Rate 69 70 Respiratory Rate 19 18 18 Blood Pressure Pulse Oximetry 96 94 L 97 Intake & Output 02/10/18 02/11/18 02/11/18 18:59 06:59 18:59 Intake Total 1000 / 1000 1170 / 1170 300 / 300 Output Total 0 / 0 0 / 0 2500 / 2500 Balance 1000 / 1000 1170 / 1170 -2200 / -2200 Weight 107 kg Intake: IV 1000 / 1000 1170 / 1170 300 / 300 Diprivan 1000 mg/100 ml Inj 1, 100 / 100 170 / 170 000 mg In 100 ml @ 5 MCG/KG/MIN 2.85 mls/hr IV.CONT TITRATE PRN Rx#:[id number] fentaNYL 10 mcg/mL Premix Drip 250 / 250 500 / 500 2,500 mcg In 250 ml @ 50 MCG/HR 5 mls/hr IV.CONT TITRATE PRN Rx#:[id number] Flexbumin 25% Inj 100 ML @ 60 200 / 200 mls/hr IV.SIG WITH DIALYSIS LEROY Rx#:[id number] Cordarone Inj 450 MG In NS Inj 250 / 250 241 ML @ 0.5 MG/MIN 16.66 mls/ hr IV.SIG .Q15H1M LEROY Rx#: [id number] Teflaro Inj 600 MG In NS Inj 100 / 100 100 / 100 100 / 100 100 ML @ 100 mls/hr IV.SIG Q8H LEROY Rx#:[id number] Prostaphlin Inj 2 GM In NS Inj 300 / 300 400 / 400 100 ML @ 200 mls/hr IV.SIG Q4H LEROY Rx#:[id number] Tube Feeding 0 / 0 Output: Hemodialysis Amount 2500 / 2500 Urine Amount (Catheter) 0 / 0 0 / 0 Coude 0 / 0 0 / 0 Chest Tube Drainage 0 / 0 #1 Right Anterior 0 / 0 Other: # Bowel Movements 0 - Constitutional no acute distress - Routine HEENT Exam Head: Present: normocephalic ENT: Present: mucous membranes moist - Routine Neck Exam Present: supple. Absent: JVD - Routine Respiratory Exam Present: patient mechanically ventilated - Routine Cardiovascular Exam Present: RRR. Absent: murmur Comments: chest tube right chest wall - Routine Abdominal Exam Present: soft, normoactive bowel sounds - Routine Exam Scrotal: Present: swelling - Routine Extremities Exam Present: edema - Routine Skin Exam Present: warm - Urinary Catheter Management Coude Cath placed during this visit: yes Urethral indwelling: Yes Reason for continuing: Hourly intake/output Insertion date: 02/02/18 <Jeanna Franz - Last Filed: 02/11/18 16:14> Vital signs: Vital Signs 02/10/18 23:00 02/10/18 23:34 02/11/18 00:00 Temperature 99.0 F Pulse Rate 72 71 70 Respiratory Rate 18 18 18 Blood Pressure 91/52 L 92/54 L Pulse Oximetry 95 95 97 02/11/18 00:11 02/11/18 00:31 02/11/18 01:38 Temperature Pulse Rate 73 75 Respiratory Rate 20 19 20 Blood Pressure 107/62 114/72 Pulse Oximetry 97 95 02/11/18 02:00 02/11/18 04:00 02/11/18 04:02 Temperature Pulse Rate 69 69 69 Respiratory Rate 18 Blood Pressure Pulse Oximetry 96 02/11/18 06:00 07/06/18 08:00 02/11/18 08:45 Temperature Pulse Rate 71 70 Respiratory Rate Blood Pressure 90/55 L Pulse Oximetry 02/11/18 09:00 02/11/18 09:15 02/11/18 09:30 Temperature Pulse Rate 71 70 69 Respiratory Rate 18 18 18 Blood Pressure 91/53 L 99/57 L 91/50 L Pulse Oximetry 95 97 96 02/11/18 09:33 02/11/18 09:45 02/11/18 10:00 Temperature Pulse Rate 69 70 71 Respiratory Rate 19 18 18 Blood Pressure 91/53 L 87/54 L Pulse Oximetry 96 96 95 02/11/18 10:04 02/11/18 10:30 02/11/18 11:00 Temperature Pulse Rate 73 72 72 Respiratory Rate 16 18 18 Blood Pressure 94/57 L 88/54 L 88/55 L Pulse Oximetry 95 95 95 02/11/18 11:30 02/11/18 11:52 02/11/18 12:00 Temperature 99.7 F H Pulse Rate 79 78 Respiratory Rate 19 18 18 Blood Pressure 115/66 90/53 L Pulse Oximetry 96 94 L 95 02/11/18 12:30 02/11/18 13:00 02/11/18 13:30 Temperature Pulse Rate 79 85 87 Respiratory Rate 20 21 18 Blood Pressure 98/57 L 111/63 109/61 Pulse Oximetry 95 96 95 02/11/18 14:00 02/11/18 14:30 02/11/18 15:00 Temperature Pulse Rate 91 H 75 74 Respiratory Rate 21 18 18 Blood Pressure 117/69 86/52 L 89/51 L Pulse Oximetry 95 98 100 02/11/18 15:31 02/11/18 15:42 02/11/18 16:00 Temperature 99.5 F Pulse Rate 74 70 73 Respiratory Rate 20 18 20 Blood Pressure 95/56 L 88/54 L Pulse Oximetry 97 97 96 02/11/18 16:31 02/11/18 16:52 02/11/18 16:53 Temperature 99.7 F H Pulse Rate 73 71 71 Respiratory Rate 20 18 18 Blood Pressure 88/56 L 95/58 L 95/58 L Pulse Oximetry 96 97 97 02/11/18 17:00 02/11/18 17:05 07/06/18 17:10 Temperature 99.9 F H Pulse Rate 72 71 71 Respiratory Rate 26 H 18 24 Blood Pressure 92/56 L 107/62 Pulse Oximetry 96 96 98 02/11/18 17:15 02/11/18 17:30 02/11/18 17:45 Temperature Pulse Rate 71 70 69 Respiratory Rate 22 18 18 Blood Pressure 92/56 L 95/57 L 99/59 L Pulse Oximetry 98 97 97 02/11/18 18:00 02/11/18 21:03 02/11/18 21:10 Temperature Pulse Rate 69 62 Respiratory Rate 18 18 Blood Pressure Pulse Oximetry 95 Intake & Output 02/11/18 02/11/18 02/12/18 06:59 18:59 06:59 Intake Total 1270 / 1270 894 / 894 304 / 304 Output Total 0 / 0 2500 / 2500 Balance 1270 / 1270 -1606 / -1606 304 / 304 Weight 107 kg Intake: IV 1270 / 1270 799 / 799 304 / 304 Diprivan 1000 mg/100 ml Inj 1, 170 / 170 100 / 100 000 mg In 100 ml @ 5 MCG/KG/MIN 2.85 mls/hr IV.CONT TITRATE PRN Rx#:[id number] fentaNYL 10 mcg/mL Premix Drip 500 / 500 147 / 147 2,500 mcg In 250 ml @ 50 MCG/HR 5 mls/hr IV.CONT TITRATE PRN Rx#:[id number] Flexbumin 25% Inj 100 ML @ 60 200 / 200 mls/hr IV.SIG WITH DIALYSIS LEROY Rx#:[id number] Maxipime Inj 2,000 MG In NS Inj 100 / 100 100 / 100 100 ML @ 200 mls/hr IV.SIG Q24H LEROY Rx#:[id number] Teflaro Inj 600 MG In NS Inj 100 / 100 100 / 100 100 / 100 100 ML @ 100 mls/hr IV.SIG Q8H LEROY Rx#:[id number] Precedex Inj 200 MCG In NS Inj 52 / 52 104 / 104 50 ML @ 0.2 MCG/KG/HR 5.56 mls/ hr IV.SIG TITRATE PRN Rx#: [id number] Prostaphlin Inj 2 GM In NS Inj 400 / 400 200 / 200 100 ML @ 200 mls/hr IV.SIG Q4H LEROY Rx#:[id number] Tube Feeding 0 / 0 95 / 95 Intake (Blood Product) Amt 0 / 0 Rbc As-3 Leukoreduced Unit 0 / 0 [id number] Output: Hemodialysis Amount 2500 / 2500 Urine Amount (Catheter) 0 / 0 0 / 0 Coude 0 / 0 0 / 0 Chest Tube Drainage 0 / 0 0 / 0 #1 Right Anterior 0 / 0 0 / 0 Other: Date of Last Bowel Movement 02/11/18 # Bowel Movements 0 # Incontinent Bowel Movements 1 - Urinary Catheter Management Coude Cath placed during this visit: no <Melvi Edwards - Last Filed: 02/11/18 22:14> Assessment and Plan - Assessment (1) Acute renal failure (ARF) Code(s): N17.9 - Acute kidney failure, unspecified Status: Acute (2) Sepsis Code(s): A41.9 - Sepsis, unspecified organism Status: Acute (3) Respiratory failure Code(s): J96.90 - Respiratory failure, unspecified, unspecified whether with hypoxia or hypercapnia Status: Acute (4) Hypotension Code(s): I95.9 - Hypotension, unspecified Status: Acute Plan: Assessment Acute renal failure Anemia ICD Codes: N17.9 - Acute kidney failure, unspecified Plan: Patient has no urine output Creatinine at 3.9 CRRT started on 02/04 for acute renal failure Vascath was removed, and re inserted. HD done today with removal of 2.5 liters of fluid Continue antibiotics. Watch for renal recovery. Might need hemodialysis on Wednesday otherwise on Wednesday Respiratory failure Management per CC Anemia Respiratory failure Plan to tranfuse PRBC for HGB of 6.8 Sepsis ICD Codes: A41.9 - Sepsis, unspecified organism Plan: ID following EMILY negative, antibiotics per ID Rhabdomyolysis ICD Codes: M62.82 - Rhabdomyolysis Plan: Monitor CPK UTI (lower urinary tract infection) ICD Codes: N39.0 - Urinary tract infection, site not specified Plan: Patient has MSSA and ID is following Pneumonia ICD Codes: J18.9 - Pneumonia, unspecified organism Plan: Pleural effusion drained chest tube in place <Jeanna Franz - Last Filed: 02/11/18 16:14> - Assessment (1) Acute renal failure (ARF) Code(s): N17.9 - Acute kidney failure, unspecified Status: Acute (2) Sepsis Code(s): A41.9 - Sepsis, unspecified organism Status: Acute (3) Respiratory failure Code(s): J96.90 - Respiratory failure, unspecified, unspecified whether with hypoxia or hypercapnia Status: Acute (4) Hypotension Code(s): I95.9 - Hypotension, unspecified Status: Acute - Attending Attestation Patient seen and examined, agree with above. HD done today, watch for renal recovery. <Melvi Edwards - Last Filed: 02/11/18 22:14>
[2018-02-11 16:42] LABS: Hematocrit 18.8 % (39.0-51.0); Hemoglobin 6.2 gm/dL (13.0-17.0)
[2018-02-11] MEDS: Dexmedetomidine Inj 200 MCG in Sodium Chlor 0.9% Inj 50 ML IV.SIG PRN ×4 (17:32→20:57)
[2018-02-11] MEDS: rifAXIMin 550 MG Tablet PO SCH (20:55)
[2018-02-11] MEDS: Dexmedetomidine Inj 1,000 MCG in Sodium Chlor 0.9% Inj 240 ML IV.SIG PRN (22:27)
[2018-02-12] MEDS: Chlorhexidine 0.12% Oral Kit 15 ML UDC OROPHARYNG SCH ×3 (00:35→20:37)
[2018-02-12 03:26] LABS: Baso # (Auto) 0.1 th/mm3 (0.0-0.2); Baso % (Auto) 1.5 % (0.0-2.0); Eos % (Auto) 0.6 % (0.0-4.0); Hematocrit 23.7 % (39.0-51.0); Hemoglobin 7.9 gm/dL (13.0-17.0); Lymph # (Auto) 0.2 th/mm3 (1.0-4.8); Lymph % (Auto) 5.2 % (9.0-44.0); Mean Corpuscular HGB Conc 33.3 % (32.0-36.0); Mean Corpuscular Hemoglobin 30.5 pg (27.0-34.0); Mean Corpuscular Volume 91.4 fL (80.0-100.0); Mean Platelet Volume 10.3 fL (7.0-11.0); Mono # (Auto) 0.3 th/mm3 (0.0-0.9); Mono % (Auto) 6.5 % (0.0-8.0); Neut # (Auto) 3.6 th/mm3 (1.8-7.7); Neut % (Auto) 86.2 % (16.0-70.0); Platelet Count 78 th/mm3 (150-450); Red Cell Distribution Width 17.5 % (11.6-17.2); White Blood Count 4.2 th/mm3 (4.0-11.0)
[2018-02-12] MEDS: Insulin NovoLOG Aspart Correctional Sugar Inj SQ SCH ×5 (03:27→18:30)
[2018-02-12 03:58] LABS: Albumin 1.6 g/dL (3.4-5.0); Calcium 6.7 mg/dL (8.5-10.1); Carbon Dioxide 21.5 meq/L (21.0-32.0); Potassium 4.7 meq/L (3.5-5.1); Total Protein 5.7 g/dL (6.4-8.2)
[2018-02-12] MEDS: Dexmedetomidine Inj 1,000 MCG in Sodium Chlor 0.9% Inj 240 ML IV.SIG PRN ×2 (04:35→20:37)
[2018-02-12] MEDS: rifAXIMin 550 MG Tablet PO SCH ×2 (08:04→20:37)
[2018-02-12] MEDS: Docusate Sodium 100 MG Capsule PO SCH (08:04)
[2018-02-12] MEDS: dilTIAZem 60 MG Tablet PO SCH ×2 (08:05→13:11)
[2018-02-12] MEDS: Sennosides Liq 8.8 MG/5 ML UDC PO SCH (08:05)
[2018-02-12] MEDS: Pantoprazole Inj 40 MG Vial IV.PUSH SCH (08:05)
[2018-02-12] MEDS: Bisacodyl 10 MG Supp RECTAL SCH (08:06)
--- NOTE | 2018-02-12 09:06 | P.PNCC ---
Subjective Subjective Remarks/Hospital Course: 02/05: This is a 57-year-old male with a strong history of EtOH abuse, his family states that he drinks greater than a pint today times at least 25 years. He was found unresponsive at home this afternoon. The last time he was seen normal was 5 days ago. He was brought in by EMS and was severely altered. He was intubated for acute hypoxemia and hypercarbia. He was also in a supraventricular tachycardia with a heart rate greater than 200. In the emergency department he was electrically cardioverted 2 without success, and given 5 mill grams of IV Lopressor which caused severe hypotension, but did not resolve his tachycardia. Immediately upon being notified went down to the emergency department evaluated the patient and transported him up to the intensive care unit. Once in the intensive care unit, I placed arterial and central lines, see separate procedure note for details. I loaded the patient with 150 mg of amiodarone and 2 g magnesium. In addition, the patient has a blood gas with severe metabolic acidosis and a pH less than 7.2. I gave 4 A of sodium bicarbonate as well as 1 g of calcium chloride for severe hypocalcemia. After these interventions, the patient spontaneously converted to a sinus tachycardia. The patient was placed on norepinephrine for persistent hypotension and shock. The emergency department attempted to place a 16 [place] Ennis catheter and was unsuccessful with this. I attempted an additional time to place both an 18 [place] coud catheter as well as a 24 [place] three-way catheter, both which were unsuccessful and met significant resistance at approximately 10-12 cm. I consulted urology and discussed the case with Dr. Worley who agrees to Place Ennis catheter tonight for emergent urine output monitoring while in shock. The patient remains altered no additional information is available from patient. ROS is unobtainable. 02/03 Patient is intubated on Levoped 5 mics, Amio and bicarb drips. 16Fr catheter was placed by Urology. 02/04 Patient remains intubated and sedated with Diprivan. Off Levophed on Neosyn 60mics. Right sided pig tail catheter placed yesterday with removal 1100ml cloudy fluid fluid analysis c/w empyema. Renal function declining with Cr: 5.87 and UOP 120ml in 12 hrs. Tmax 102.2 02/05: remains intubated and critically ill. on CVVHD. per RN, net -300/hr on CVVHD. off vasopressors this AM. 02/06: Remains sedated, orally intubated on mechanical ventilation. CRRT clotted off last night. Nephrology planning HD 02/07 Patient remains intubated and sedated with Fentanyl infusion. Off Neosyn remains on Vasopressin and Amio drip. T;102 last night. 02/08 No events overnight. Intubated and on Fentanyl infusion for sedation. Afebrile. Off all pressors. s/p HD yesterday. On Amio drip. 02/09 Patient remains sedated and intubated. For HD today. On Amio drip, T:101.3 last night. 02/10 No events overnight. Sedated with Diprivan and Fentanyl drips. Afebrile. For possible EMILY today. 02/11 Patient remains intubated and sedated. Tmax 100.1. MRCP yesterday no biliary obstruction. On Amio drip. 02/12 Patient remains intubated, now on Precedex drip, Off Diprivan and Fentanyl drip. Tmax:99.7 Objective Vital Signs / I&O: Vital Signs 02/11/18 09:00 02/11/18 09:15 02/11/18 09:30 Temperature Pulse Rate 71 70 69 Respiratory Rate 18 18 18 Blood Pressure 91/53 L 99/57 L 91/50 L Pulse Oximetry 95 97 96 02/11/18 09:33 02/11/18 09:45 02/11/18 10:00 Temperature Pulse Rate 69 70 71 Respiratory Rate 19 18 18 Blood Pressure 91/53 L 87/54 L Pulse Oximetry 96 96 95 02/11/18 10:04 02/11/18 10:30 02/11/18 11:00 Temperature Pulse Rate 73 72 72 Respiratory Rate 16 18 18 Blood Pressure 94/57 L 88/54 L 88/55 L Pulse Oximetry 95 95 95 02/11/18 11:30 02/11/18 11:52 02/11/18 12:00 Temperature 99.7 F H Pulse Rate 79 78 Respiratory Rate 19 18 18 Blood Pressure 115/66 90/53 L Pulse Oximetry 96 94 L 95 02/11/18 12:30 02/11/18 13:00 02/11/18 13:30 Temperature Pulse Rate 79 85 87 Respiratory Rate 20 21 18 Blood Pressure 98/57 L 111/63 109/61 Pulse Oximetry 95 96 95 02/11/18 14:00 02/11/18 14:30 02/11/18 15:00 Temperature Pulse Rate 91 H 75 74 Respiratory Rate 21 18 18 Blood Pressure 117/69 86/52 L 89/51 L Pulse Oximetry 95 98 100 02/11/18 15:31 02/11/18 15:42 02/11/18 16:00 Temperature 99.5 F Pulse Rate 74 70 73 Respiratory Rate 20 18 20 Blood Pressure 95/56 L 88/54 L Pulse Oximetry 97 97 96 02/11/18 16:31 02/11/18 16:52 02/11/18 16:53 Temperature 99.7 F H Pulse Rate 73 71 71 Respiratory Rate 20 18 18 Blood Pressure 88/56 L 95/58 L 95/58 L Pulse Oximetry 96 97 97 02/11/18 17:00 02/11/18 17:05 02/11/18 17:10 Temperature 99.9 F H Pulse Rate 72 71 71 Respiratory Rate 26 H 18 24 Blood Pressure 92/56 L 107/62 Pulse Oximetry 96 96 98 02/11/18 17:15 02/11/18 17:30 02/11/18 17:45 Temperature Pulse Rate 71 70 69 Respiratory Rate 22 18 18 Blood Pressure 92/56 L 95/57 L 99/59 L Pulse Oximetry 98 97 97 02/11/18 18:00 02/11/18 18:15 02/11/18 18:30 Temperature Pulse Rate 69 68 67 Respiratory Rate 18 18 Blood Pressure 101/65 103/67 Pulse Oximetry 96 97 02/11/18 18:45 02/11/18 19:00 02/11/18 19:15 Temperature Pulse Rate 67 68 68 Respiratory Rate 18 18 18 Blood Pressure 106/68 109/70 111/71 Pulse Oximetry 97 96 97 02/11/18 19:30 02/11/18 19:45 02/11/18 20:00 Temperature Pulse Rate 68 67 65 Respiratory Rate 18 18 19 Blood Pressure 110/73 109/71 101/66 Pulse Oximetry 97 96 97 02/11/18 20:15 02/11/18 20:30 02/11/18 20:45 Temperature Pulse Rate 66 66 66 Respiratory Rate 18 18 18 Blood Pressure 101/65 109/69 105/69 Pulse Oximetry 96 95 95 02/11/18 21:00 02/11/18 21:03 02/11/18 21:10 Temperature Pulse Rate 61 62 Respiratory Rate 21 18 18 Blood Pressure 105/65 Pulse Oximetry 98 95 02/11/18 21:15 02/11/18 21:30 02/11/18 21:45 Temperature Pulse Rate 63 65 66 Respiratory Rate 18 18 18 Blood Pressure 95/58 L 97/61 L 100/62 Pulse Oximetry 95 95 95 02/11/18 22:00 02/11/18 22:15 02/11/18 22:30 Temperature Pulse Rate 66 65 64 Respiratory Rate 18 18 18 Blood Pressure 102/66 101/65 98/61 L Pulse Oximetry 95 96 92 L 02/11/18 22:45 02/11/18 23:00 02/11/18 23:15 Temperature Pulse Rate 64 65 64 Respiratory Rate 18 18 18 Blood Pressure 94/60 L 95/58 L 92/62 L Pulse Oximetry 93 L 93 L 93 L 02/11/18 23:30 02/11/18 23:45 02/12/18 00:00 Temperature 98.3 F Pulse Rate 64 64 64 Respiratory Rate 18 18 18 Blood Pressure 93/59 L 98/62 L 96/61 L Pulse Oximetry 94 L 94 L 95 02/12/18 00:15 02/12/18 00:31 02/12/18 00:35 Temperature Pulse Rate 62 63 Respiratory Rate 18 19 20 Blood Pressure 94/59 L 88/54 L Pulse Oximetry 96 95 96 02/12/18 00:45 02/12/18 01:00 02/12/18 01:15 Temperature Pulse Rate 63 64 64 Respiratory Rate 18 18 18 Blood Pressure 97/61 L 101/67 100/65 Pulse Oximetry 96 94 L 94 L 02/12/18 01:30 02/12/18 01:45 02/12/18 02:00 Temperature Pulse Rate 62 63 63 Respiratory Rate 18 18 18 Blood Pressure 95/57 L 97/60 L 98/61 L Pulse Oximetry 95 94 L 94 L 02/12/18 02:15 02/12/18 02:30 02/12/18 02:45 Temperature Pulse Rate 63 63 63 Respiratory Rate 18 18 18 Blood Pressure 97/60 L 92/56 L 90/58 L Pulse Oximetry 94 L 94 L 94 L 02/12/18 03:00 02/12/18 03:15 02/12/18 03:30 Temperature Pulse Rate 63 63 63 Respiratory Rate 18 18 18 Blood Pressure 92/60 L 92/61 L 94/59 L Pulse Oximetry 94 L 94 L 95 02/12/18 03:45 02/12/18 03:48 02/12/18 03:50 Temperature Pulse Rate 63 64 Respiratory Rate 18 18 19 Blood Pressure 97/62 L Pulse Oximetry 95 94 L 02/12/18 04:00 02/12/18 04:15 02/12/18 04:30 Temperature Pulse Rate 65 65 64 Respiratory Rate 18 18 18 Blood Pressure 95/61 L 93/61 L 100/59 L Pulse Oximetry 94 L 93 L 92 L 02/12/18 04:45 02/12/18 05:00 02/12/18 05:15 Temperature Pulse Rate 64 63 63 Respiratory Rate 23 18 19 Blood Pressure 91/58 L 85/51 L 81/52 L Pulse Oximetry 92 L 93 L 92 L 02/12/18 05:30 02/12/18 05:45 02/12/18 06:00 Temperature Pulse Rate 63 64 64 Respiratory Rate 18 18 18 Blood Pressure 85/55 L 89/56 L 90/56 L Pulse Oximetry 93 L 93 L 93 L 02/12/18 06:15 02/12/18 06:30 02/12/18 06:45 Temperature Pulse Rate 62 62 63 Respiratory Rate 18 18 18 Blood Pressure 85/57 L 85/55 L 88/56 L Pulse Oximetry 91 L 93 L 93 L 02/12/18 07:00 02/12/18 07:15 02/12/18 07:30 Temperature Pulse Rate 62 61 62 Respiratory Rate 17 18 18 Blood Pressure 81/53 L 82/55 L 88/54 L Pulse Oximetry 93 L 93 L 92 L 02/12/18 07:45 02/12/18 08:00 02/12/18 08:01 Temperature 98.8 F Pulse Rate 61 73 61 Respiratory Rate 18 18 24 Blood Pressure 89/60 L 82/49 L Pulse Oximetry 90 L 100 97 02/12/18 08:15 02/12/18 08:28 02/12/18 08:30 Temperature Pulse Rate 62 60 Respiratory Rate 18 19 Blood Pressure 81/52 L 79/52 L Pulse Oximetry 96 96 93 L 02/12/18 08:45 Temperature Pulse Rate 60 Respiratory Rate 18 Blood Pressure 81/51 L Pulse Oximetry 93 L Intake & Output 02/11/18 02/12/18 02/12/18 18:59 06:59 18:59 Intake Total 1144 / 1144 1513 / 1513 100 / 100 Output Total 2500 / 2500 10 Balance -1356 / -1356 1503 / 1503 100 / 100 Weight 108 kg Intake: IV 1049 / 1049 854 / 854 100 / 100 Diprivan 1000 mg/100 ml Inj 1, 100 / 100 000 mg In 100 ml @ 5 MCG/KG/MIN 2.85 mls/hr IV.CONT TITRATE PRN Rx#:[id number] fentaNYL 10 mcg/mL Premix Drip 147 / 147 2,500 mcg In 250 ml @ 50 MCG/HR 5 mls/hr IV.CONT TITRATE PRN Rx#:[id number] Flexbumin 25% Inj 100 ML @ 60 200 / 200 mls/hr IV.SIG WITH DIALYSIS LEROY Rx#:[id number] Cordarone Inj 450 MG In NS Inj 250 / 250 241 ML @ 0.5 MG/MIN 16.66 mls/ hr IV.SIG .Q15H1M LEROY Rx#: [id number] Maxipime Inj 2,000 MG In NS Inj 100 / 100 100 ML @ 200 mls/hr IV.SIG Q24H LEROY Rx#:[id number] Teflaro Inj 600 MG In NS Inj 100 / 100 100 / 100 100 ML @ 100 mls/hr IV.SIG Q8H LEROY Rx#:[id number] Precedex Inj 1,000 MCG In NS 250 / 250 Inj 240 ML @ 0.2 MCG/KG/HR 5.35 mls/hr IV.SIG TITRATE PRN Rx#: [id number] Precedex Inj 200 MCG In NS Inj 52 / 52 104 / 104 50 ML @ 0.2 MCG/KG/HR 5.56 mls/ hr IV.SIG TITRATE PRN Rx#: [id number] Prostaphlin Inj 2 GM In NS Inj 200 / 200 300 / 300 100 / 100 100 ML @ 200 mls/hr IV.SIG Q4H LEROY Rx#:[id number] Tube Feeding 95 / 95 259 / 259 Intake (Blood Product) Amt 0 / 0 400 / 400 Rbc As-3 Leukoreduced Unit 0 / 0 400 / 400 [id number] Output: Hemodialysis Amount 2500 / 2500 Urine Amount (Catheter) 0 / 0 10 Coude 0 / 0 Chest Tube Drainage 0 / 0 0 / 0 #1 Right Anterior 0 / 0 0 / 0 Other: Date of Last Bowel Movement 02/11/18 02/11/18 # Incontinent Bowel Movements 1 0 Result Diagrams: 02/12/18 03:14 02/12/18 03:14 Objective Remarks: GENERAL: Patient is 57 yo intubated and sedated. SKIN: Warm and dry. HEAD: Normocephalic. EYES: No scleral icterus. No injection or drainage. NECK: Supple, trachea midline. No JVD. CARDIOVASCULAR: Regular rate and rhythm. sinus. RESPIRATORY: Breath sounds equal bilaterally. No accessory muscle use. GASTROINTESTINAL: Abdomen soft, non-tender, nondistended. MUSCULOSKELETAL: No cyanosis, or edema. Neuro: Intubated, sedated Assessment and Plan - Assessment and Plan Plan: A/P Plan by systems: Neurologic: Acute metabolic encephalopathy etoh abuse Likely secondary to EtOH abuse Monitor neuro status, on Thiamine/MVI/ on Precedex drip to facilitate with weaning trials. CT brain : No acute process on 02/02 EEG: Diffuse encephalopathy Respiratory: Acute hypoxic and hypercarbic respiratory failure Right sided empyema Continue with vent support keep sats >92% Bronchodilates, ICU vent bundle, SBT daily as marquez. s/p right pigtail catheter placement 02/03 Pleural fluid analysis c/w empyema, monitor CT drainage. CXR 02/10 unchanged in b/l pulm infiltrates Cardiovascular: Mixed hypovolemic and septic shock Atrial fibrillation with rapid ventricular response Monitor HR and BP keep MAP>65mmHg Cardizem 60mg QID, d/c Amio drip Status post 5 L crystalloid resuscitation in the emergency department Lactic acid is trending down Echo showed EF 60-65%, no RWMA s/p EMILY 02/10 : No vegetations, unremarkable Renal: Acute kidney injury-severe Acute rhabdomyolysis Obstructive uropathy BPH Monitor renal function, I/O's, avoid nephrotoxins, s/p HD yesterday with removal 2.5L Urology is following- s/p 16Fr Ennis catheter placement Renal is following- Dr. Dinh. FEN/GI: Elevated LFT's with hyperbilirubinemia Acute protein calorie malnutrition: S Resume tube feeds ( Nepro) @ 40ml/hr on hold Ammonia level <10 on 02/02 Hepatitis profile: Non reactive, GI is following MRCP 02/10: No biliary obstruction. Bowel regimen with Lactulose, Colace and Senna. Heme/ID: Coagulopathy, probably secondary to end-stage liver disease Thrombocytopenia, secondary to shock Leukopenia, secondary septic shock On Teflaro, Cefepime, Oxacillin per ID Monitor for signs of infections ( Fever, WBC) follow up on cultures on BC from 02/11 NGTD 02/08 BC coag negative staph bacteremia 02/02 Sputum cx: GNR 02/02 Urine cx: Staph Aureus 02/03 BC: GPC 08/12 bottles 02/03 Fluid cx: NGT HIV ab: non reactive Monitor CBC, coags, s/p transfusion 1u PLT pheresis 02/08 Endocrine: Hyperglycemia of critical illness -- SSI, TSH 1.6 Prophylaxis: GI Prophylaxis Protonix IV DVT Prophylaxis -- SCDs - Subcu heparin on hold for thrombocytopenia Palliative care is following Code status: Alternative code Lines: New Right IJ vascath placed 02/08. Peripheral IV's Level 3
--- NOTE | 2018-02-12 13:49 | P.PNNP ---
Subjective Interval history: intubated Physical Exam Vital signs: Vital Signs 02/11/18 14:00 02/11/18 14:30 02/11/18 15:00 Temperature Pulse Rate 91 H 75 74 Respiratory Rate 21 18 18 Blood Pressure 117/69 86/52 L 89/51 L Pulse Oximetry 95 98 100 02/11/18 15:31 02/11/18 15:42 02/11/18 16:00 Temperature 99.5 F Pulse Rate 74 70 73 Respiratory Rate 20 18 20 Blood Pressure 95/56 L 88/54 L Pulse Oximetry 97 97 96 02/11/18 16:31 02/11/18 16:52 02/11/18 16:53 Temperature 99.7 F H Pulse Rate 73 71 71 Respiratory Rate 20 18 18 Blood Pressure 88/56 L 95/58 L 95/58 L Pulse Oximetry 96 97 97 02/11/18 17:00 02/11/18 17:05 02/11/18 17:10 Temperature 99.9 F H Pulse Rate 72 71 71 Respiratory Rate 26 H 18 24 Blood Pressure 92/56 L 107/62 Pulse Oximetry 96 96 98 02/11/18 17:15 02/11/18 17:30 02/11/18 17:45 Temperature Pulse Rate 71 70 69 Respiratory Rate 22 18 18 Blood Pressure 92/56 L 95/57 L 99/59 L Pulse Oximetry 98 97 97 02/11/18 18:00 02/11/18 18:15 02/11/18 18:30 Temperature Pulse Rate 69 68 67 Respiratory Rate 18 18 Blood Pressure 101/65 103/67 Pulse Oximetry 96 97 02/11/18 18:45 02/11/18 19:00 02/11/18 19:15 Temperature Pulse Rate 67 68 68 Respiratory Rate 18 18 18 Blood Pressure 106/68 109/70 111/71 Pulse Oximetry 97 96 97 02/11/18 19:30 02/11/18 19:45 02/11/18 20:00 Temperature Pulse Rate 68 67 65 Respiratory Rate 18 18 19 Blood Pressure 110/73 109/71 101/66 Pulse Oximetry 97 96 97 02/11/18 20:15 02/11/18 20:30 02/11/18 20:45 Temperature Pulse Rate 66 66 66 Respiratory Rate 18 18 18 Blood Pressure 101/65 109/69 105/69 Pulse Oximetry 96 95 95 02/11/18 21:00 02/11/18 21:03 02/11/18 21:10 Temperature Pulse Rate 61 62 Respiratory Rate 21 18 18 Blood Pressure 105/65 Pulse Oximetry 98 95 02/11/18 21:15 02/11/18 21:30 02/11/18 21:45 Temperature Pulse Rate 63 65 66 Respiratory Rate 18 18 18 Blood Pressure 95/58 L 97/61 L 100/62 Pulse Oximetry 95 95 95 02/11/18 22:00 02/11/18 22:15 02/11/18 22:30 Temperature Pulse Rate 66 65 64 Respiratory Rate 18 18 18 Blood Pressure 102/66 101/65 98/61 L Pulse Oximetry 95 96 92 L 02/11/18 22:45 02/11/18 23:00 02/11/18 23:15 Temperature Pulse Rate 64 65 64 Respiratory Rate 18 18 18 Blood Pressure 94/60 L 95/58 L 92/62 L Pulse Oximetry 93 L 93 L 93 L 02/11/18 23:30 02/11/18 23:45 02/12/18 00:00 Temperature 98.3 F Pulse Rate 64 64 64 Respiratory Rate 18 18 18 Blood Pressure 93/59 L 98/62 L 96/61 L Pulse Oximetry 94 L 94 L 95 02/12/18 00:15 02/12/18 00:31 02/12/18 00:35 Temperature Pulse Rate 62 63 Respiratory Rate 18 19 20 Blood Pressure 94/59 L 88/54 L Pulse Oximetry 96 95 96 02/12/18 00:45 02/12/18 01:00 02/12/18 01:15 Temperature Pulse Rate 63 64 64 Respiratory Rate 18 18 18 Blood Pressure 97/61 L 101/67 100/65 Pulse Oximetry 96 94 L 94 L 02/12/18 01:30 02/12/18 01:45 02/12/18 02:00 Temperature Pulse Rate 62 63 63 Respiratory Rate 18 18 18 Blood Pressure 95/57 L 97/60 L 98/61 L Pulse Oximetry 95 94 L 94 L 02/12/18 02:15 02/12/18 02:30 02/12/18 02:45 Temperature Pulse Rate 63 63 63 Respiratory Rate 18 18 18 Blood Pressure 97/60 L 92/56 L 90/58 L Pulse Oximetry 94 L 94 L 94 L 02/12/18 03:00 02/12/18 03:15 02/12/18 03:30 Temperature Pulse Rate 63 63 63 Respiratory Rate 18 18 18 Blood Pressure 92/60 L 92/61 L 94/59 L Pulse Oximetry 94 L 94 L 95 02/12/18 03:45 02/12/18 03:48 02/12/18 03:50 Temperature Pulse Rate 63 64 Respiratory Rate 18 18 19 Blood Pressure 97/62 L Pulse Oximetry 95 94 L 02/12/18 04:00 02/12/18 04:15 02/12/18 04:30 Temperature Pulse Rate 65 65 64 Respiratory Rate 18 18 18 Blood Pressure 95/61 L 93/61 L 100/59 L Pulse Oximetry 94 L 93 L 92 L 02/12/18 04:45 02/12/18 05:00 02/12/18 05:15 Temperature Pulse Rate 64 63 63 Respiratory Rate 23 18 19 Blood Pressure 91/58 L 85/51 L 81/52 L Pulse Oximetry 92 L 93 L 92 L 02/12/18 05:30 02/12/18 05:45 02/12/18 06:00 Temperature Pulse Rate 63 64 64 Respiratory Rate 18 18 18 Blood Pressure 85/55 L 89/56 L 90/56 L Pulse Oximetry 93 L 93 L 93 L 02/12/18 06:15 02/12/18 06:30 02/12/18 06:45 Temperature Pulse Rate 62 62 63 Respiratory Rate 18 18 18 Blood Pressure 85/57 L 85/55 L 88/56 L Pulse Oximetry 91 L 93 L 93 L 02/12/18 07:00 02/12/18 07:15 02/12/18 07:30 Temperature Pulse Rate 62 61 62 Respiratory Rate 17 18 18 Blood Pressure 81/53 L 82/55 L 88/54 L Pulse Oximetry 93 L 93 L 92 L 02/12/18 07:45 02/12/18 08:00 02/12/18 08:01 Temperature 98.8 F Pulse Rate 61 73 61 Respiratory Rate 18 18 24 Blood Pressure 89/60 L 82/49 L Pulse Oximetry 90 L 100 97 02/12/18 08:15 02/12/18 08:28 02/12/18 08:30 Temperature Pulse Rate 62 60 Respiratory Rate 18 19 Blood Pressure 81/52 L 79/52 L Pulse Oximetry 96 96 93 L 02/12/18 08:45 07/07/18 10:00 Temperature Pulse Rate 60 67 Respiratory Rate 18 Blood Pressure 81/51 L Pulse Oximetry 93 L Intake & Output 02/11/18 02/12/18 02/12/18 18:59 06:59 18:59 Intake Total 1144 / 1144 1513 / 1513 690 / 690 Output Total 2500 / 2500 10 10 Balance -1356 / -1356 1503 / 1503 690 / 690 Weight 108 kg Intake: IV 1049 / 1049 854 / 854 690 / 690 Diprivan 1000 mg/100 ml Inj 1, 100 / 100 000 mg In 100 ml @ 5 MCG/KG/MIN 2.85 mls/hr IV.CONT TITRATE PRN Rx#:[id number] fentaNYL 10 mcg/mL Premix Drip 147 / 147 2,500 mcg In 250 ml @ 50 MCG/HR 5 mls/hr IV.CONT TITRATE PRN Rx#:[id number] Flexbumin 25% Inj 100 ML @ 60 200 / 200 mls/hr IV.SIG WITH DIALYSIS [facility] Rx#:[id number] Cordarone Inj 450 MG In NS Inj 250 / 250 180 / 180 241 ML @ 0.5 MG/MIN 16.66 mls/ hr IV.SIG .Q15H1M [facility]Y Rx#: [id number] Maxipime Inj 2,000 MG In NS Inj 100 / 100 100 ML @ 200 mls/hr IV.SIG Q24H [facility] Rx#:[id number] Teflaro Inj 600 MG In NS Inj 100 / 100 100 / 100 100 / 100 100 ML @ 100 mls/hr IV.SIG Q8H [facility] Rx#:[id number] Precedex Inj 1,000 MCG In NS 250 / 250 200 / 200 Inj 240 ML @ 0.2 MCG/KG/HR 5.35 mls/hr IV.SIG TITRATE PRN Rx#: [id number] Precedex Inj 200 MCG In NS Inj 52 / 52 104 / 104 50 ML @ 0.2 MCG/KG/HR 5.56 mls/ hr IV.SIG TITRATE PRN Rx#: [id number] Prostaphlin Inj 2 GM In NS Inj 200 / 200 300 / 300 210 / 210 100 ML @ 200 mls/hr IV.SIG Q4H [facility] Rx#:[id number] Tube Feeding 95 / 95 259 / 259 Intake (Blood Product) Amt 0 / 0 400 / 400 Rbc As-3 Leukoreduced Unit 0 / 0 400 / 400 [id number] Output: Hemodialysis Amount 2500 / 2500 Urine Amount (Catheter) 0 / 0 Coude 0 / 0 Chest Tube Drainage 0 / 0 0 / 0 #1 Right Anterior 0 / 0 0 / 0 Other: Date of Last Bowel Movement 02/11/18 02/11/18 02/12/18 # Incontinent Bowel Movements 1 0 - Constitutional no acute distress - Routine HEENT Exam Head: Present: normocephalic - Routine Neck Exam Present: supple - Routine Respiratory Exam Present: patient mechanically ventilated, diminished air movement - Routine Cardiovascular Exam Present: RRR - Routine Abdominal Exam Present: soft - Routine Extremities Exam Present: edema - Routine Skin Exam Present: intact - Detailed Neurological Exam: Coma Scale Eye Opening: Spontaneous - Routine Psychiatric Exam Present: unable to assess - Urinary Catheter Management Coude Cath placed during this visit: yes Urethral indwelling: Yes Reason for continuing: Other continuation reason Insertion date: 02/02/18 Assessment and Plan - Assessment (1) Acute renal failure (ARF) Code(s): N17.9 - Acute kidney failure, unspecified Status: Acute (2) Sepsis Code(s): A41.9 - Sepsis, unspecified organism Status: Acute (3) Respiratory failure Code(s): J96.90 - Respiratory failure, unspecified, unspecified whether with hypoxia or hypercapnia Status: Acute (4) Hypotension Code(s): I95.9 - Hypotension, unspecified Status: Acute Plan: Assessment Acute renal failure Anemia ICD Codes: N17.9 - Acute kidney failure, unspecified Plan: Patient has no urine output Initially on CRRT started on 02/04 for acute renal failure Vascath was removed, and re inserted. HD done Wednesday with removal of 2.5 liters of fluid Plan for next HD Wednesday Continue antibiotics. Watch for renal recovery. Respiratory failure Management per CC Anemia Respiratory failure Transfused , HGb 7.9 today Sepsis ICD Codes: A41.9 - Sepsis, unspecified organism Plan: ID following EMILY negative, antibiotics per ID Rhabdomyolysis ICD Codes: M62.82 - Rhabdomyolysis Plan: Monitor CPK UTI (lower urinary tract infection) ICD Codes: N39.0 - Urinary tract infection, site not specified Plan: Patient has MSSA and ID is following Pneumonia ICD Codes: J18.9 - Pneumonia, unspecified organism Plan: Pleural effusion drained chest tube in place
--- NOTE | 2018-02-12 15:30 | P.PNCA ---
Subjective Interval history: Intubated, sedated, multiple BMs today Physical Exam Vital signs: Vital Signs 02/11/18 15:31 02/11/18 15:42 02/11/18 16:00 Temperature 99.5 F Pulse Rate 74 70 73 Respiratory Rate 20 18 20 Blood Pressure 95/56 L 88/54 L Pulse Oximetry 97 97 96 02/11/18 16:31 02/11/18 16:52 02/11/18 16:53 Temperature 99.7 F H Pulse Rate 73 71 71 Respiratory Rate 20 18 18 Blood Pressure 88/56 L 95/58 L 95/58 L Pulse Oximetry 96 97 97 02/11/18 17:00 02/11/18 17:05 02/11/18 17:10 Temperature 99.9 F H Pulse Rate 72 71 71 Respiratory Rate 26 H 18 24 Blood Pressure 92/56 L 107/62 Pulse Oximetry 96 96 98 02/11/18 17:15 02/11/18 17:30 02/11/18 17:45 Temperature Pulse Rate 71 70 69 Respiratory Rate 22 18 18 Blood Pressure 92/56 L 95/57 L 99/59 L Pulse Oximetry 98 97 97 02/11/18 18:00 02/11/18 18:15 02/11/18 18:30 Temperature Pulse Rate 69 68 67 Respiratory Rate 18 18 Blood Pressure 101/65 103/67 Pulse Oximetry 96 97 02/11/18 18:45 02/11/18 19:00 02/11/18 19:15 Temperature Pulse Rate 67 68 68 Respiratory Rate 18 18 18 Blood Pressure 106/68 109/70 111/71 Pulse Oximetry 97 96 97 02/11/18 19:30 02/11/18 19:45 02/11/18 20:00 Temperature Pulse Rate 68 67 65 Respiratory Rate 18 18 19 Blood Pressure 110/73 109/71 101/66 Pulse Oximetry 97 96 97 02/11/18 20:15 02/11/18 20:30 02/11/18 20:45 Temperature Pulse Rate 66 66 66 Respiratory Rate 18 18 18 Blood Pressure 101/65 109/69 105/69 Pulse Oximetry 96 95 95 02/11/18 21:00 02/11/18 21:03 02/11/18 21:10 Temperature Pulse Rate 61 62 Respiratory Rate 21 18 18 Blood Pressure 105/65 Pulse Oximetry 98 95 02/11/18 21:15 02/11/18 21:30 02/11/18 21:45 Temperature Pulse Rate 63 65 66 Respiratory Rate 18 18 18 Blood Pressure 95/58 L 97/61 L 100/62 Pulse Oximetry 95 95 95 02/11/18 22:00 02/11/18 22:15 02/11/18 22:30 Temperature Pulse Rate 66 65 64 Respiratory Rate 18 18 18 Blood Pressure 102/66 101/65 98/61 L Pulse Oximetry 95 96 92 L 02/11/18 22:45 02/11/18 23:00 02/11/18 23:15 Temperature Pulse Rate 64 65 64 Respiratory Rate 18 18 18 Blood Pressure 94/60 L 95/58 L 92/62 L Pulse Oximetry 93 L 93 L 93 L 02/11/18 23:30 02/11/18 23:45 02/12/18 00:00 Temperature 98.3 F Pulse Rate 64 64 64 Respiratory Rate 18 18 18 Blood Pressure 93/59 L 98/62 L 96/61 L Pulse Oximetry 94 L 94 L 95 02/12/18 00:15 02/12/18 00:31 02/12/18 00:35 Temperature Pulse Rate 62 63 Respiratory Rate 18 19 20 Blood Pressure 94/59 L 88/54 L Pulse Oximetry 96 95 96 02/12/18 00:45 02/12/18 01:00 02/12/18 01:15 Temperature Pulse Rate 63 64 64 Respiratory Rate 18 18 18 Blood Pressure 97/61 L 101/67 100/65 Pulse Oximetry 96 94 L 94 L 02/12/18 01:30 02/12/18 01:45 02/12/18 02:00 Temperature Pulse Rate 62 63 63 Respiratory Rate 18 18 18 Blood Pressure 95/57 L 97/60 L 98/61 L Pulse Oximetry 95 94 L 94 L 02/12/18 02:15 02/12/18 02:30 02/12/18 02:45 Temperature Pulse Rate 63 63 63 Respiratory Rate 18 18 18 Blood Pressure 97/60 L 92/56 L 90/58 L Pulse Oximetry 94 L 94 L 94 L 02/12/18 03:00 02/12/18 03:15 02/12/18 03:30 Temperature Pulse Rate 63 63 63 Respiratory Rate 18 18 18 Blood Pressure 92/60 L 92/61 L 94/59 L Pulse Oximetry 94 L 94 L 95 02/12/18 03:45 02/12/18 03:48 02/12/18 03:50 Temperature Pulse Rate 63 64 Respiratory Rate 18 18 19 Blood Pressure 97/62 L Pulse Oximetry 95 94 L 02/12/18 04:00 02/12/18 04:15 02/12/18 04:30 Temperature Pulse Rate 65 65 64 Respiratory Rate 18 18 18 Blood Pressure 95/61 L 93/61 L 100/59 L Pulse Oximetry 94 L 93 L 92 L 02/12/18 04:45 02/12/18 05:00 02/12/18 05:15 Temperature Pulse Rate 64 63 63 Respiratory Rate 23 18 19 Blood Pressure 91/58 L 85/51 L 81/52 L Pulse Oximetry 92 L 93 L 92 L 02/12/18 05:30 02/12/18 05:45 02/12/18 06:00 Temperature Pulse Rate 63 64 64 Respiratory Rate 18 18 18 Blood Pressure 85/55 L 89/56 L 90/56 L Pulse Oximetry 93 L 93 L 93 L 02/12/18 06:15 02/12/18 06:30 02/12/18 06:45 Temperature Pulse Rate 62 62 63 Respiratory Rate 18 18 18 Blood Pressure 85/57 L 85/55 L 88/56 L Pulse Oximetry 91 L 93 L 93 L 02/12/18 07:00 02/12/18 07:15 02/12/18 07:30 Temperature Pulse Rate 62 61 62 Respiratory Rate 17 18 18 Blood Pressure 81/53 L 82/55 L 88/54 L Pulse Oximetry 93 L 93 L 92 L 02/12/18 07:45 02/12/18 08:00 02/12/18 08:01 Temperature 98.8 F Pulse Rate 61 73 61 Respiratory Rate 18 18 24 Blood Pressure 89/60 L 82/49 L Pulse Oximetry 90 L 100 97 02/12/18 08:15 02/12/18 08:28 02/12/18 08:30 Temperature Pulse Rate 62 60 Respiratory Rate 18 19 Blood Pressure 81/52 L 79/52 L Pulse Oximetry 96 96 93 L 02/12/18 08:45 02/12/18 10:00 02/12/18 12:00 Temperature Pulse Rate 60 67 76 Respiratory Rate 18 Blood Pressure 81/51 L Pulse Oximetry 93 L 02/12/18 14:00 Temperature Pulse Rate 76 Respiratory Rate Blood Pressure Pulse Oximetry Intake & Output 02/11/18 02/12/18 02/12/18 18:59 06:59 18:59 Intake Total 1144 / 1144 1513 / 1513 690 / 690 Output Total 2500 / 2500 Balance -1356 / -1356 1503 / 1503 690 / 690 Weight 238 lb 1.588 oz Intake: IV 1049 / 1049 854 / 854 690 / 690 Diprivan 1000 mg/100 ml Inj 1, 100 / 100 000 mg In 100 ml @ 5 MCG/KG/MIN 2.85 mls/hr IV.CONT TITRATE PRN Rx#:[id number] fentaNYL 10 mcg/mL Premix Drip 147 / 147 2,500 mcg In 250 ml @ 50 MCG/HR 5 mls/hr IV.CONT TITRATE PRN Rx#:[id number] Flexbumin 25% Inj 100 ML @ 60 200 / 200 mls/hr IV.SIG WITH DIALYSIS [facility] Rx#:[id number] Cordarone Inj 450 MG In NS Inj 250 / 250 180 / 180 241 ML @ 0.5 MG/MIN 16.66 mls/ hr IV.SIG .Q15H1M [facility] Rx#: [id number] Maxipime Inj 2,000 MG In NS Inj 100 / 100 100 ML @ 200 mls/hr IV.SIG Q24H [facility] Rx#:[id number] Teflaro Inj 600 MG In NS Inj 100 / 100 100 / 100 100 / 100 100 ML @ 100 mls/hr IV.SIG Q8H [facility] Rx#:[id number] Precedex Inj 1,000 MCG In NS 250 / 250 200 / 200 Inj 240 ML @ 0.2 MCG/KG/HR 5.35 mls/hr IV.SIG TITRATE PRN Rx#: [id number] Precedex Inj 200 MCG In NS Inj 52 / 52 104 / 104 50 ML @ 0.2 MCG/KG/HR 5.56 mls/ hr IV.SIG TITRATE PRN Rx#: [id number] Prostaphlin Inj 2 GM In NS Inj 200 / 200 300 / 300 210 / 210 100 ML @ 200 mls/hr IV.SIG Q4H [facility] Rx#:[id number] Tube Feeding 95 / 95 259 / 259 Intake (Blood Product) Amt 0 / 0 400 / 400 Rbc As-3 Leukoreduced Unit 0 / 0 400 / 400 [id number] Output: Hemodialysis Amount 2500 / 2500 Urine Amount (Catheter) 0 / 0 Coude 0 / 0 Chest Tube Drainage 0 / 0 0 / 0 #1 Right Anterior 0 / 0 0 / 0 Other: Date of Last Bowel Movement 02/11/18 02/11/18 02/12/18 # Incontinent Bowel Movements 1 0 Narrative: GENERAL: Intubated, on the vent, sedated SKIN: Warm and dry. NECK: 2+ carotid upstrokes. CARDIOVASCULAR: Regular rate and rhythm without murmurs, gallops or rubs. RESPIRATORY: Normal breath sounds - equal bilaterally. No wheezes, rales or rubs. PERIPHERY: No cyanosis, trace edema. - Urinary Catheter Management Coude Cath placed during this visit: yes Urethral indwelling: Yes Reason for continuing: Other continuation reason Insertion date: 02/02/18 Assessment and Plan - Assessment (1) Encephalopathy Code(s): G93.40 - Encephalopathy, unspecified Status: Acute (2) Septic shock Code(s): A41.9 - Sepsis, unspecified organism; R65.21 - Severe sepsis with septic shock Status: Acute (3) Atrial flutter Code(s): I48.92 - Unspecified atrial flutter Status: Acute (4) ANIBAL (acute kidney injury) Code(s): N17.9 - Acute kidney failure, unspecified Status: Acute (5) Respiratory failure Code(s): J96.90 - Respiratory failure, unspecified, unspecified whether with hypoxia or hypercapnia Status: Acute - Plan No new cardiac issues. Rhythm stable. Continue abxs as per ID. EMILY was performed at bedside on 02-10-2018; no evidence of endocarditis at this time. Wean vent as tolerated. Continue with current treatment plan.
--- NOTE | 2018-02-12 16:36 | P.PNGI ---
Subjective Interval history: Patient is beginning to respond slowly to loud verbal stimuli Did shake his head no to abdominal pain Continues to be intubated Rectal bag has yellowish-brown liquid stool, Physical Exam Vital signs: Vital Signs 02/11/18 16:31 02/11/18 16:52 02/11/18 16:53 Temperature 99.7 F H Pulse Rate 73 71 71 Respiratory Rate 20 18 18 Blood Pressure 88/56 L 95/58 L 95/58 L Pulse Oximetry 96 97 97 02/11/18 17:00 02/11/18 17:05 02/11/18 17:10 Temperature 99.9 F H Pulse Rate 72 71 71 Respiratory Rate 26 H 18 24 Blood Pressure 92/56 L 107/62 Pulse Oximetry 96 96 98 02/11/18 17:15 02/11/18 17:30 02/11/18 17:45 Temperature Pulse Rate 71 70 69 Respiratory Rate 22 18 18 Blood Pressure 92/56 L 95/57 L 99/59 L Pulse Oximetry 98 97 97 02/11/18 18:00 02/11/18 18:15 02/11/18 18:30 Temperature Pulse Rate 69 68 67 Respiratory Rate 18 18 Blood Pressure 101/65 103/67 Pulse Oximetry 96 97 02/11/18 18:45 02/11/18 19:00 02/11/18 19:15 Temperature Pulse Rate 67 68 68 Respiratory Rate 18 18 18 Blood Pressure 106/68 109/70 111/71 Pulse Oximetry 97 96 97 02/11/18 19:30 02/11/18 19:45 02/11/18 20:00 Temperature Pulse Rate 68 67 65 Respiratory Rate 18 18 19 Blood Pressure 110/73 109/71 101/66 Pulse Oximetry 97 96 97 02/11/18 20:15 02/11/18 20:30 02/11/18 20:45 Temperature Pulse Rate 66 66 66 Respiratory Rate 18 18 18 Blood Pressure 101/65 109/69 105/69 Pulse Oximetry 96 95 95 02/11/18 21:00 02/11/18 21:03 02/11/18 21:10 Temperature Pulse Rate 61 62 Respiratory Rate 21 18 18 Blood Pressure 105/65 Pulse Oximetry 98 95 02/11/18 21:15 02/11/18 21:30 02/11/18 21:45 Temperature Pulse Rate 63 65 66 Respiratory Rate 18 18 18 Blood Pressure 95/58 L 97/61 L 100/62 Pulse Oximetry 95 95 95 02/11/18 22:00 02/11/18 22:15 02/11/18 22:30 Temperature Pulse Rate 66 65 64 Respiratory Rate 18 18 18 Blood Pressure 102/66 101/65 98/61 L Pulse Oximetry 95 96 92 L 02/11/18 22:45 02/11/18 23:00 02/11/18 23:15 Temperature Pulse Rate 64 65 64 Respiratory Rate 18 18 18 Blood Pressure 94/60 L 95/58 L 92/62 L Pulse Oximetry 93 L 93 L 93 L 02/11/18 23:30 02/11/18 23:45 02/12/18 00:00 Temperature 98.3 F Pulse Rate 64 64 64 Respiratory Rate 18 18 18 Blood Pressure 93/59 L 98/62 L 96/61 L Pulse Oximetry 94 L 94 L 95 02/12/18 00:15 02/12/18 00:31 02/12/18 00:35 Temperature Pulse Rate 62 63 Respiratory Rate 18 19 20 Blood Pressure 94/59 L 88/54 L Pulse Oximetry 96 95 96 02/12/18 00:45 02/12/18 01:00 02/12/18 01:15 Temperature Pulse Rate 63 64 64 Respiratory Rate 18 18 18 Blood Pressure 97/61 L 101/67 100/65 Pulse Oximetry 96 94 L 94 L 02/12/18 01:30 02/12/18 01:45 02/12/18 02:00 Temperature Pulse Rate 62 63 63 Respiratory Rate 18 18 18 Blood Pressure 95/57 L 97/60 L 98/61 L Pulse Oximetry 95 94 L 94 L 02/12/18 02:15 02/12/18 02:30 02/12/18 02:45 Temperature Pulse Rate 63 63 63 Respiratory Rate 18 18 18 Blood Pressure 97/60 L 92/56 L 90/58 L Pulse Oximetry 94 L 94 L 94 L 02/12/18 03:00 02/12/18 03:15 02/12/18 03:30 Temperature Pulse Rate 63 63 63 Respiratory Rate 18 18 18 Blood Pressure 92/60 L 92/61 L 94/59 L Pulse Oximetry 94 L 94 L 95 02/12/18 03:45 02/12/18 03:48 02/12/18 03:50 Temperature Pulse Rate 63 64 Respiratory Rate 18 18 19 Blood Pressure 97/62 L Pulse Oximetry 95 94 L 02/12/18 04:00 02/12/18 04:15 02/12/18 04:30 Temperature Pulse Rate 65 65 64 Respiratory Rate 18 18 18 Blood Pressure 95/61 L 93/61 L 100/59 L Pulse Oximetry 94 L 93 L 92 L 02/12/18 04:45 02/12/18 05:00 02/12/18 05:15 Temperature Pulse Rate 64 63 63 Respiratory Rate 23 18 19 Blood Pressure 91/58 L 85/51 L 81/52 L Pulse Oximetry 92 L 93 L 92 L 02/12/18 05:30 02/12/18 05:45 02/12/18 06:00 Temperature Pulse Rate 63 64 64 Respiratory Rate 18 18 18 Blood Pressure 85/55 L 89/56 L 90/56 L Pulse Oximetry 93 L 93 L 93 L 02/12/18 06:15 02/12/18 06:30 02/12/18 06:45 Temperature Pulse Rate 62 62 63 Respiratory Rate 18 18 18 Blood Pressure 85/57 L 85/55 L 88/56 L Pulse Oximetry 91 L 93 L 93 L 02/12/18 07:00 02/12/18 07:15 02/12/18 07:30 Temperature Pulse Rate 62 61 62 Respiratory Rate 17 18 18 Blood Pressure 81/53 L 82/55 L 88/54 L Pulse Oximetry 93 L 93 L 92 L 02/12/18 07:45 02/12/18 08:00 02/12/18 08:01 Temperature 98.8 F Pulse Rate 61 73 61 Respiratory Rate 18 18 24 Blood Pressure 89/60 L 82/49 L Pulse Oximetry 90 L 100 97 02/12/18 08:15 02/12/18 08:28 02/12/18 08:30 Temperature Pulse Rate 62 60 Respiratory Rate 18 19 Blood Pressure 81/52 L 79/52 L Pulse Oximetry 96 96 93 L 02/12/18 08:45 02/12/18 09:00 02/12/18 09:15 Temperature Pulse Rate 60 60 60 Respiratory Rate 18 18 18 Blood Pressure 81/51 L 84/53 L 82/52 L Pulse Oximetry 93 L 93 L 92 L 02/12/18 09:30 02/12/18 09:45 02/12/18 10:00 Temperature Pulse Rate 60 59 L 58 L Respiratory Rate 18 18 18 Blood Pressure 82/51 L 82/52 L 77/50 L Pulse Oximetry 93 L 93 L 94 L 02/12/18 10:30 02/12/18 11:00 02/12/18 11:17 Temperature Pulse Rate 62 68 70 Respiratory Rate 20 24 31 H Blood Pressure 83/50 L 86/55 L 87/54 L Pulse Oximetry 94 L 94 L 93 L 02/12/18 11:30 02/12/18 12:00 02/12/18 12:30 Temperature 98.7 F Pulse Rate 79 76 75 Respiratory Rate 25 H 26 H 23 Blood Pressure 122/63 102/65 91/50 L Pulse Oximetry 97 96 02/12/18 13:00 02/12/18 13:30 02/12/18 14:00 Temperature Pulse Rate 73 75 76 Respiratory Rate 24 23 26 H Blood Pressure 88/52 L 89/55 L 84/56 L Pulse Oximetry 94 L 93 L 02/12/18 14:45 02/12/18 15:00 02/12/18 16:00 Temperature Pulse Rate 82 80 80 Respiratory Rate 20 19 Blood Pressure 87/54 L 94/59 L Pulse Oximetry 96 95 Intake & Output 02/11/18 02/12/18 02/12/18 18:59 06:59 18:59 Intake Total 1144 / 1144 1513 / 1513 690 / 690 Output Total 2500 / 2500 Balance -1356 / -1356 1503 / 1503 690 / 690 Weight 108 kg Intake: IV 1049 / 1049 854 / 854 690 / 690 Diprivan 1000 mg/100 ml Inj 1, 100 / 100 000 mg In 100 ml @ 5 MCG/KG/MIN 2.85 mls/hr IV.CONT TITRATE PRN Rx#:[id number] fentaNYL 10 mcg/mL Premix Drip 147 / 147 2,500 mcg In 250 ml @ 50 MCG/HR 5 mls/hr IV.CONT TITRATE PRN Rx#:[id number] Flexbumin 25% Inj 100 ML @ 60 200 / 200 mls/hr IV.SIG WITH DIALYSIS LEROY Rx#:[id number] Cordarone Inj 450 MG In NS Inj 250 / 250 180 / 180 241 ML @ 0.5 MG/MIN 16.66 mls/ hr IV.SIG .Q15H1M LEROY Rx#: [id number] Maxipime Inj 2,000 MG In NS Inj 100 / 100 100 ML @ 200 mls/hr IV.SIG Q24H LEROY Rx#:[id number] Teflaro Inj 600 MG In NS Inj 100 / 100 100 / 100 100 / 100 100 ML @ 100 mls/hr IV.SIG Q8H LEROY Rx#:[id number] Precedex Inj 1,000 MCG In NS 250 / 250 200 / 200 Inj 240 ML @ 0.2 MCG/KG/HR 5.35 mls/hr IV.SIG TITRATE PRN Rx#: [id number] Precedex Inj 200 MCG In NS Inj 52 / 52 104 / 104 50 ML @ 0.2 MCG/KG/HR 5.56 mls/ hr IV.SIG TITRATE PRN Rx#: [id number] Prostaphlin Inj 2 GM In NS Inj 200 / 200 300 / 300 210 / 210 100 ML @ 200 mls/hr IV.SIG Q4H LEROY Rx#:[id number] Tube Feeding 95 / 95 259 / 259 Intake (Blood Product) Amt 0 / 0 400 / 400 Rbc As-3 Leukoreduced Unit 0 / 0 400 / 400 [id number] Output: Hemodialysis Amount 2500 / 2500 Urine Amount (Catheter) 0 / 0 10 10 Coude 0 / 0 10 10 Chest Tube Drainage 0 / 0 0 / 0 #1 Right Anterior 0 / 0 0 / 0 Other: Date of Last Bowel Movement 02/11/18 02/11/18 02/12/18 # Incontinent Bowel Movements 1 0 - Constitutional mild distress, agitated - Routine HEENT Exam Head: Present: normocephalic (Mild), atraumatic (ET tube for ventilator management) Eye: Present: conjunctival icterus ENT: Present: mucous membranes moist - Routine Neck Exam Present: supple - Routine Respiratory Exam Present: patient mechanically ventilated, decreased breath sounds, rhonchi (No obvious respiratory distress) - Routine Cardiovascular Exam Present: RRR - Routine Abdominal Exam Present: normoactive bowel sounds (Very soft minimal bowel sounds, taut, mild distention) - Routine Extremities Exam Present: pallor - Routine Skin Exam Present: dry, pallor, jaundice - Routine Neurological Exam Present: sensory deficit, altered mental status - Detailed Neurological Exam: Coma Scale Eye Opening: To sound Motor Response: Localizing - Urinary Catheter Management Coude Cath placed during this visit: yes Urethral indwelling: Yes Reason for continuing: Other continuation reason Insertion date: 02/02/18 Results - Labs CBC & Chem 7: 02/12/18 03:14 02/12/18 03:14 Laboratory Results - last 24 hr 02/11/18 02/11/18 02/11/18 15:17 15:30 18:08 WBC RBC Hgb 6.2 L* Hct 18.8 L* MCV MCH MCHC RDW Plt Count MPV Prelim Diff (Auto) Neut % (Auto) Lymph % (Auto) Roberts % (Auto) Eos % (Auto) Baso % (Auto) Neut # (Auto) Lymph # (Auto) Roberts # (Auto) Eos # (Auto) Baso # (Auto) WBC Differential Diff Scan Differential Comment Sodium Potassium Chloride Carbon Dioxide Anion Gap BUN Creatinine Estimated GFR POC Glucose 220 H Random Glucose Calcium Prot Corrected Calcium Total Bilirubin AST ALT Alkaline Phosphatase Total Protein Albumin Blood Type O Positive Antibody Screen Negative MTS Gel Crossmatch See Detail Bld Prod Order Comment 02/12/18 02/12/18 02/12/18 01:44 03:14 03:14 WBC 4.2 RBC 2.60 L Hgb 7.9 L Hct 23.7 L MCV 91.4 MCH 30.5 MCHC 33.3 RDW 17.5 H Plt Count 78 L MPV 10.3 Prelim Diff (Auto) Slide review pending Neut % (Auto) 86.2 H Lymph % (Auto) 5.2 L Roberts % (Auto) 6.5 Eos % (Auto) 0.6 Baso % (Auto) 1.5 Neut # (Auto) 3.6 Lymph # (Auto) 0.2 L Roberts # (Auto) 0.3 Eos # (Auto) 0.0 Baso # (Auto) 0.1 WBC Differential . Diff Scan Auto diff confirmed Differential Comment . Sodium 141 Potassium 4.7 D Chloride 105 Carbon Dioxide 21.5 Anion Gap 15 BUN 68 H Creatinine 4.67 H Estimated GFR 13 L POC Glucose 254 H Random Glucose 238 H D Calcium 6.7 L* Prot Corrected Calcium 7.4 L* Total Bilirubin 6.9 H AST 45 H ALT 23 Alkaline Phosphatase 182 H Total Protein 5.7 L Albumin 1.6 L Blood Type Antibody Screen MTS Gel Crossmatch Bld Prod Order Comment 02/12/18 02/12/18 06:04 13:06 WBC RBC Hgb Hct MCV MCH MCHC RDW Plt Count MPV Prelim Diff (Auto) Neut % (Auto) Lymph % (Auto) Roberts % (Auto) Eos % (Auto) Baso % (Auto) Neut # (Auto) Lymph # (Auto) Roberts # (Auto) Eos # (Auto) Baso # (Auto) WBC Differential Diff Scan Differential Comment Sodium Potassium Chloride Carbon Dioxide Anion Gap BUN Creatinine Estimated GFR POC Glucose 219 H 233 H Random Glucose Calcium Prot Corrected Calcium Total Bilirubin AST ALT Alkaline Phosphatase Total Protein Albumin Blood Type Antibody Screen MTS Gel Crossmatch Bld Prod Order Comment Microbiology 02/08/18 14:02 Blood - Peripheral Aerobic Blood Culture - Final Staphylococcus epidermidis 02/08/18 14:02 Blood - Peripheral Anaerobic Blood Culture - Preliminary No growth in 4 days 02/08/18 13:55 Blood - Peripheral Aerobic Blood Culture - Final Staphylococcus epidermidis 02/08/18 13:55 Blood - Peripheral Anaerobic Blood Culture - Preliminary No growth in 4 days 02/11/18 04:50 Blood - Peripheral Aerobic Blood Culture - Preliminary No growth in 1 day 02/11/18 04:50 Blood - Peripheral Anaerobic Blood Culture - Preliminary No growth in 1 day 02/11/18 04:57 Blood - Peripheral Aerobic Blood Culture - Preliminary No growth in 1 day 02/11/18 04:57 Blood - Peripheral Anaerobic Blood Culture - Preliminary No growth in 1 day 02/07/18 03:59 Blood - Peripheral Aerobic Blood Culture - Final Staphylococcus aureus 02/07/18 03:59 Blood - Peripheral Anaerobic Blood Culture - Final No growth in 5 days Assessment and Plan (1) Anemia Status: Acute Code(s): D64.9 - Anemia, unspecified (2) Leukocytosis Status: Acute Code(s): D72.829 - Elevated white blood cell count, unspecified (3) Cholelithiasis Status: Acute Code(s): K80.20 - Calculus of gallbladder without cholecystitis without obstruction - Plan Assessment: - Elevated LFTs likely secondary to shocked liver in background of ETOH abuse LFTs from ER visit 01/26 AST-99 ALT-46 Alk phos-108 T bili-1.4 Returned on 02/02 AST-1685 ALT-307 Alk phos-66 T bili-1.7 Pt found unresponsive at home with known history of ETOH abuse, on admission pt was in SVT with noted extreme hypotension and fund raiser noted persistent hypotension and shock requiring Levo gtt. Unable to obtain history from pt because he is orally intubated, on sedation but awake. According to notes pt was drinking greater than a pint daily. Abdomen US (02/04) Prominent gallbladder with small stones and minimal gallbladder wall thickening. Patient is not tender over the gallbladder. Echogenic liver. Small right pleural effusion. CT abdomen and pelvis WO IV contrast (02/03) Moderate-sized right pleural effusion. Two calcifications in the expected region of the distal common bile duct or pancreatic head measuring 3 mm each. Bibasilar atelectasis and/or infiltrates which are slightly worse on the right than the left. Cardiomegaly. Left adrenal nodule measuring 2.6 x 2.3 cm consistent with probable adrenal adenoma or cyst. Small amount of ascites. Probable 2.3 cm right renal cyst. Liver Work up: Hepatitis panel negative. GARY negative. AAT-433 Ceruloplasmin-69 AFP-0.8 Iron-30 TIBC-126 %Sat-23.8 Ferritin-2246 - Thrombocytopenia- secondary to liver disease - Hypoalbuminemia- albumin 1.5 - pt on replacement - ANIBAL, rhabdomyolysis, obstructive uropathy, BPH- Pt on HD- nephorlogy following Anemia, probable acute on chronic but need to rule out any source of bleeding when patient is stable (02/10) T bili and alk phos have increased and fluctuated some since admission. Give CT findings of calcifications in expected region on CBD or pancreatic head, pt would likely benefit from MRCP when stable to transport. 02/11/2018 patient appears agitated continues with ventilator support noted per staff 2.5 L pulled off from dialysis yesterday. Probable constipation without bowel movement times 1 week? Currently sinus rhythm but noted to be in and out of atrial dysrhythmias. Continues nutritional support with Nepro at 20 cc an hour labs show current hemoglobin 6.9 noted EtOH abuse with cirrhosis large from abdomen. Noted palliative care consult appreciated. MRCP showed no biliary obstruction. Patient continues to be critically ill. No family present. May consider EGD, but currently patient is too unstable. Continue to monitor hemoglobin for any source of GI bleed. Currently 6.9 today 02/12/2018 patient continues with ventilator management but is beginning to respond slowly to loud verbal stimuli. Did localize and shake head no to abdominal pain. Anemia noted with drop in hemoglobin 6.2 now back up to 7.9 with transfusion. Labs show alkaline phosphatase 182, bilirubin 6.9, AST 45 ALT 23. Rectal bag shows dark bilious yellowish-brown diarrhea PT/INR 1.1. Will need to continue to monitor patient's source of bleeding when clinically stable. Patient's LFTs are normalizing but bilirubin continues at 6.9 which is probably hepatocellular disease related to alcohol. Patient will need EGD when clinically stable. Has liquid brown dark yellow bilious diarrhea via rectal bag. Patient had aggressive treatment for constipation yesterday. Patient still remains in serious condition. Plan Diet, tube feeds, monitor toleration Bowel regimen as needed, Consider EGD, TBA Needs alcohol abstinence Monitor labs with special attention to hemoglobin and transfuse as needed Supportive care Further recommendations based on clinical course and results of above Patient has been seen and examined by myself and Dr. Galvin and this note is written on her behalf
[2018-02-13] MEDS: Insulin NovoLOG Aspart Correctional Sugar Inj SQ SCH ×5 (01:44→18:21)
[2018-02-13] MEDS: Dexmedetomidine Inj 1,000 MCG in Sodium Chlor 0.9% Inj 240 ML IV.SIG PRN ×3 (03:47→23:36)
[2018-02-13 05:40] LABS: Baso % (Auto) 0.9 % (0.0-2.0); Eos % (Auto) 0.3 % (0.0-4.0); Hematocrit 21.7 % (39.0-51.0); Hemoglobin 7.2 gm/dL (13.0-17.0); Lymph # (Auto) 0.2 th/mm3 (1.0-4.8); Lymph % (Auto) 5.6 % (9.0-44.0); Mean Corpuscular HGB Conc 32.9 % (32.0-36.0); Mean Corpuscular Hemoglobin 30.2 pg (27.0-34.0); Mean Corpuscular Volume 91.5 fL (80.0-100.0); Mean Platelet Volume 9.7 fL (7.0-11.0); Mono # (Auto) 0.3 th/mm3 (0.0-0.9); Mono % (Auto) 7.1 % (0.0-8.0); Neut # (Auto) 3.6 th/mm3 (1.8-7.7); Neut % (Auto) 86.1 % (16.0-70.0); Platelet Count 110 th/mm3 (150-450); Red Blood Count 2.38 mil/mm3 (4.50-5.90); Red Cell Distribution Width 18.4 % (11.6-17.2); White Blood Count 4.2 th/mm3 (4.0-11.0)
[2018-02-13 06:09] LABS: Albumin 1.3 g/dL (3.4-5.0); Calcium 6.6 mg/dL (8.5-10.1); Carbon Dioxide 19.4 meq/L (21.0-32.0); Potassium 4.6 meq/L (3.5-5.1); Total Protein 5.5 g/dL (6.4-8.2)
--- NOTE | 2018-02-13 07:57 | P.PNCC ---
Subjective Subjective Remarks/Hospital Course: 02/05: This is a 57-year-old male with a strong history of EtOH abuse, his family states that he drinks greater than a pint today times at least 25 years. He was found unresponsive at home this afternoon. The last time he was seen normal was 5 days ago. He was brought in by EMS and was severely altered. He was intubated for acute hypoxemia and hypercarbia. He was also in a supraventricular tachycardia with a heart rate greater than 200. In the emergency department he was electrically cardioverted 2 without success, and given 5 mill grams of IV Lopressor which caused severe hypotension, but did not resolve his tachycardia. Immediately upon being notified went down to the emergency department evaluated the patient and transported him up to the intensive care unit. Once in the intensive care unit, I placed arterial and central lines, see separate procedure note for details. I loaded the patient with 150 mg of amiodarone and 2 g magnesium. In addition, the patient has a blood gas with severe metabolic acidosis and a pH less than 7.2. I gave 4 A of sodium bicarbonate as well as 1 g of calcium chloride for severe hypocalcemia. After these interventions, the patient spontaneously converted to a sinus tachycardia. The patient was placed on norepinephrine for persistent hypotension and shock. The emergency department attempted to place a 16 Niger[place] Ennis catheter and was unsuccessful with this. I attempted an additional time to place both an 18 Nigerien coud catheter as well as a 24 Nigerien three-way catheter, both which were unsuccessful and met significant resistance at approximately 10-12 cm. I consulted urology and discussed the case with Dr. Worley who agrees to Place Ennis catheter tonight for emergent urine output monitoring while in shock. The patient remains altered no additional information is available from patient. ROS is unobtainable. 02/03 Patient is intubated on Levoped 5 mics, Amio and bicarb drips. 16Fr catheter was placed by Urology. 02/04 Patient remains intubated and sedated with Diprivan. Off Levophed on Neosyn 60mics. Right sided pig tail catheter placed yesterday with removal 1100ml cloudy fluid fluid analysis c/w empyema. Renal function declining with Cr: 5.87 and UOP 120ml in 12 hrs. Tmax 102.2 02/05: remains intubated and critically ill. on CVVHD. per RN, net -300/hr on CVVHD. off vasopressors this AM. 02/06: Remains sedated, orally intubated on mechanical ventilation. CRRT clotted off last night. Nephrology planning HD 02/07 Patient remains intubated and sedated with Fentanyl infusion. Off Neosyn remains on Vasopressin and Amio drip. T;102 last night. 02/08 No events overnight. Intubated and on Fentanyl infusion for sedation. Afebrile. Off all pressors. s/p HD yesterday. On Amio drip. 02/09 Patient remains sedated and intubated. For HD today. On Amio drip, T:101.3 last night. 02/10 No events overnight. Sedated with Diprivan and Fentanyl drips. Afebrile. For possible EMILY today. 02/11 Patient remains intubated and sedated. Tmax 100.1. MRCP yesterday no biliary obstruction. On Amio drip. 02/12 Patient remains intubated, now on Precedex drip, Off Diprivan and Fentanyl drip. Tmax:99.7 02/13 No events overnight. Off Diprivan and Fentanyl drips on Precedex drip 0.5. Afebrile. Objective Vital Signs / I&O: Vital Signs 02/12/18 08:00 02/12/18 08:01 02/12/18 08:15 Temperature 98.8 F Pulse Rate 73 61 62 Respiratory Rate 18 24 18 Blood Pressure 82/49 L 81/52 L Pulse Oximetry 100 97 96 02/12/18 08:28 02/12/18 08:30 02/12/18 08:45 Temperature Pulse Rate 60 60 Respiratory Rate 19 18 Blood Pressure 79/52 L 81/51 L Pulse Oximetry 96 93 L 93 L 02/12/18 09:00 02/12/18 09:15 02/12/18 09:30 Temperature Pulse Rate 60 60 60 Respiratory Rate 18 18 18 Blood Pressure 84/53 L 82/52 L 82/51 L Pulse Oximetry 93 L 92 L 93 L 02/12/18 09:45 02/12/18 10:00 02/12/18 10:30 Temperature Pulse Rate 59 L 58 L 62 Respiratory Rate 18 18 20 Blood Pressure 82/52 L 77/50 L 83/50 L Pulse Oximetry 93 L 94 L 94 L 02/12/18 11:00 02/12/18 11:17 02/12/18 11:30 Temperature Pulse Rate 68 70 79 Respiratory Rate 24 31 H 25 H Blood Pressure 86/55 L 87/54 L 122/63 Pulse Oximetry 94 L 93 L 97 02/12/18 12:00 02/12/18 12:30 02/12/18 13:00 Temperature 98.7 F Pulse Rate 76 75 73 Respiratory Rate 26 H 23 24 Blood Pressure 102/65 91/50 L 88/52 L Pulse Oximetry 96 02/12/18 13:30 02/12/18 14:00 02/12/18 14:45 Temperature Pulse Rate 75 76 82 Respiratory Rate 23 26 H 20 Blood Pressure 89/55 L 84/56 L 87/54 L Pulse Oximetry 94 L 93 L 96 02/12/18 15:00 02/12/18 15:30 02/12/18 16:00 Temperature Pulse Rate 80 77 78 Respiratory Rate 19 12 20 Blood Pressure 94/59 L 93/53 L 102/55 L Pulse Oximetry 95 94 L 94 L 02/12/18 16:30 02/12/18 17:00 02/12/18 17:26 Temperature Pulse Rate 78 79 81 Respiratory Rate 14 15 22 Blood Pressure 95/53 L 95/53 L Pulse Oximetry 94 L 95 02/12/18 17:29 02/12/18 17:30 02/12/18 18:00 Temperature Pulse Rate 83 83 Respiratory Rate 26 H 14 13 Blood Pressure 110/61 103/57 L Pulse Oximetry 95 95 95 02/12/18 18:30 02/12/18 19:00 02/12/18 19:30 Temperature Pulse Rate 84 85 86 Respiratory Rate 21 23 21 Blood Pressure 104/59 L 104/56 L 111/60 Pulse Oximetry 94 L 95 95 02/12/18 20:00 02/12/18 20:30 02/12/18 21:00 Temperature 99.1 F Pulse Rate 84 77 74 Respiratory Rate 24 20 19 Blood Pressure 112/63 103/63 98/55 L Pulse Oximetry 95 95 95 02/12/18 21:11 02/12/18 21:30 02/12/18 22:00 Temperature Pulse Rate 73 75 Respiratory Rate 19 19 23 Blood Pressure 99/60 L 100/59 L Pulse Oximetry 94 L 94 L 94 L 02/12/18 22:30 02/12/18 23:00 02/12/18 23:30 Temperature Pulse Rate 72 71 72 Respiratory Rate 18 23 18 Blood Pressure 90/55 L 96/55 L 91/55 L Pulse Oximetry 96 97 96 02/13/18 00:00 02/13/18 00:29 02/13/18 00:30 Temperature Pulse Rate 69 68 Respiratory Rate 17 18 18 Blood Pressure 93/54 L 94/55 L Pulse Oximetry 96 96 96 02/13/18 01:00 02/13/18 01:30 02/13/18 02:00 Temperature Pulse Rate 67 68 72 Respiratory Rate 18 18 19 Blood Pressure 93/54 L 93/55 L 81/48 L Pulse Oximetry 95 95 95 02/13/18 02:30 02/13/18 03:00 02/13/18 03:30 Temperature Pulse Rate 73 71 72 Respiratory Rate 22 21 23 Blood Pressure 84/54 L 86/53 L 83/53 L Pulse Oximetry 95 95 95 02/13/18 04:00 02/13/18 04:30 02/13/18 05:00 Temperature 99.0 F Pulse Rate 69 67 66 Respiratory Rate 18 18 18 Blood Pressure 86/54 L 86/50 L 88/50 L Pulse Oximetry 96 95 95 02/13/18 05:01 02/13/18 05:30 02/13/18 06:00 Temperature Pulse Rate 66 68 Respiratory Rate 18 19 18 Blood Pressure 87/50 L 87/50 L Pulse Oximetry 95 94 L 94 L Intake & Output 02/12/18 02/13/18 02/13/18 18:59 06:59 18:59 Intake Total 1468 / 1468 1108 / 1108 110 / 110 Output Total 10 / 10 Balance 1468 / 1468 1098 / 1098 110 / 110 Weight 109.5 kg Intake: IV 1000 / 1000 680 / 680 110 / 110 Cordarone Inj 450 MG In NS Inj 180 / 180 241 ML @ 0.5 MG/MIN 16.66 mls/ hr IV.SIG .Q15H1M [facility] Rx#: [id number] Maxipime Inj 2,000 MG In NS Inj 100 / 100 100 ML @ 200 mls/hr IV.SIG Q24H [facility] Rx#:[id number] Teflaro Inj 600 MG In NS Inj 200 / 200 100 / 100 100 ML @ 100 mls/hr IV.SIG Q8H [facility] Rx#:[id number] Precedex Inj 1,000 MCG In NS 200 / 200 250 / 250 Inj 240 ML @ 0.2 MCG/KG/HR 5.35 mls/hr IV.SIG TITRATE PRN Rx#: [id number] Prostaphlin Inj 2 GM In NS Inj 320 / 320 330 / 330 110 / 110 100 ML @ 200 mls/hr IV.SIG Q4H [facility] Rx#:[id number] Tube Feeding 268 / 268 368 / 368 Tube Irrigant 200 / 200 60 / 60 Output: Urine Amount (Catheter) Coude Chest Tube Drainage 0 / 0 #1 Right Anterior 0 / 0 Other: Date of Last Bowel Movement 02/12/18 02/12/18 # Bowel Movements 5 Result Diagrams: 02/13/18 04:35 02/13/18 04:35 Other Results: Laboratory Results - last 12 hr 02/13/18 02/13/18 02/13/18 01:39 04:35 04:35 WBC 4.2 RBC 2.38 L Hgb 7.2 L Hct 21.7 L MCV 91.5 MCH 30.2 MCHC 32.9 RDW 18.4 H Plt Count 110 L D MPV 9.7 Neut % (Auto) 86.1 H Lymph % (Auto) 5.[address] [place] % (Auto) 7.1 Eos % (Auto) 0.3 Baso % (Auto) 0.9 Neut # (Auto) 3.6 Lymph # (Auto) 0.[address] [place] # (Auto) 0.3 Eos # (Auto) 0.0 Baso # (Auto) 0.0 WBC Differential . Differential Comment Auto diff final Sodium 144 Potassium 4.6 Chloride 107 Carbon Dioxide 19.4 L Anion Gap 18 H BUN 81 H Creatinine 5.69 H Estimated GFR 10 L POC Glucose 312 H Random Glucose 213 H Calcium 6.6 L* Prot Corrected Calcium 7.4 L* Total Bilirubin 5.6 H AST 49 H ALT 23 Alkaline Phosphatase 278 H Total Protein 5.5 L Albumin 1.3 L 02/13/18 05:34 WBC RBC Hgb Hct MCV MCH MCHC RDW Plt Count MPV Neut % (Auto) Lymph % (Auto) [place] % (Auto) Eos % (Auto) Baso % (Auto) Neut # (Auto) Lymph # (Auto) [place] # (Auto) Eos # (Auto) Baso # (Auto) WBC Differential Differential Comment Sodium Potassium Chloride Carbon Dioxide Anion Gap BUN Creatinine Estimated GFR POC Glucose 232 H Random Glucose Calcium Prot Corrected Calcium Total Bilirubin AST ALT Alkaline Phosphatase Total Protein Albumin Imaging: Chest X-Ray 02/10/18 00:00 CONCLUSION: Stable examination compared to the prior study. Cholangiopancreatography MRI 02/10/18 00:00 CONCLUSION: No evidence of biliary obstruction Abdomen X-Ray 02/11/18 00:00 CONCLUSION: Nonspecific bowel gas pattern with some mildly dilated loops of colon. No definite mechanical obstruction is demonstrated. Objective Remarks: GENERAL: Patient is 57 yo intubated and sedated. SKIN: Warm and dry. HEAD: Normocephalic. EYES: No scleral icterus. No injection or drainage. NECK: Supple, trachea midline. No JVD. CARDIOVASCULAR: Regular rate and rhythm. sinus. RESPIRATORY: Breath sounds equal bilaterally. No accessory muscle use. GASTROINTESTINAL: Abdomen soft, non-tender, nondistended. MUSCULOSKELETAL: No cyanosis, +2 edema. Neuro: Intubated, sedated Assessment and Plan - Assessment and Plan Plan: A/P Plan by systems: Neurologic: Acute metabolic encephalopathy etoh abuse Likely secondary to EtOH abuse Monitor neuro status, on Thiamine/MVI/ On Precedex drip to facilitate with weaning trials. CT brain : No acute process on 02/02 EEG: Diffuse encephalopathy Respiratory: Acute hypoxic and hypercarbic respiratory failure Right sided empyema Continue with vent support keep sats >92% Bronchodilates, ICU vent bundle, SBT daily as marquez. Family leaning against trach/PEG s/p right pigtail catheter placement 02/03 Pleural fluid analysis c/w empyema, monitor CT drainage. CXR 02/10 unchanged in b/l pulm infiltrates Cardiovascular: Mixed hypovolemic and septic shock Atrial fibrillation with rapid ventricular response Monitor HR and BP keep MAP>65mmHg Cardizem 60mg QID, Status post 5 L crystalloid resuscitation in the emergency department Lactic acid is trending down Echo showed EF 60-65%, no RWMA s/p EMILY 02/10 : No vegetations, unremarkable Renal: Acute kidney injury-severe Acute rhabdomyolysis Obstructive uropathy BPH Monitor renal function, I/O's, avoid nephrotoxins, s/p HD 02/11 with removal 2.5L Urology is following- s/p 16Fr Ennis catheter placement Renal is following- Dr. Dinh. FEN/GI: Elevated LFT's with hyperbilirubinemia Acute protein calorie malnutrition: S KUB abdomen 02/11: Non specific bowel gas pattern, no def mechanical obstruction Resume tube feeds ( Nepro) @ 40ml/hr on hold Ammonia level <10 on 02/02 Hepatitis profile: Non reactive, GI is following MRCP 02/10: No biliary obstruction. Bowel regimen with Lactulose, Colace and Senna. Heme/ID: Coagulopathy, probably secondary to end-stage liver disease Thrombocytopenia, secondary to shock Leukopenia, secondary septic shock On Teflaro, Cefepime, Oxacillin per ID Monitor for signs of infections ( Fever, WBC) follow up on cultures on BC from 02/11 NGTD 02/08 BC coag negative staph bacteremia 02/02 Sputum cx: GNR 02/02 Urine cx: Staph Aureus 02/03 BC: GPC 08/12 bottles 02/03 Fluid cx: NGTD HIV ab: non reactive Monitor CBC, coags s/p transfusion 1u PRBC on 02/11 s/p transfusion 1u PLT pheresis 02/08 Endocrine: Hyperglycemia of critical illness -- SSI, TSH 1.6 Prophylaxis: GI Prophylaxis Protonix IV DVT Prophylaxis -- SCDs - Subcu heparin on hold for thrombocytopenia Palliative care is following Code status: Alternative code Lines: Right IJ vascath placed 02/08. Peripheral IV's Level 3
[2018-02-13] MEDS: Bisacodyl 10 MG Supp RECTAL SCH (08:08)
[2018-02-13] MEDS: Pantoprazole Inj 40 MG Vial IV.PUSH SCH (08:08)
[2018-02-13] MEDS: rifAXIMin 550 MG Tablet PO SCH ×2 (08:08→22:03)
[2018-02-13] MEDS: Chlorhexidine 0.12% Oral Kit 15 ML UDC OROPHARYNG SCH ×2 (08:09→22:03)
[2018-02-13] MEDS: dilTIAZem 60 MG Tablet PO SCH (08:10)
--- NOTE | 2018-02-13 08:27 | P.PNNP ---
Subjective Interval history: no acute events Physical Exam Vital signs: Vital Signs 02/12/18 08:28 02/12/18 08:30 02/12/18 08:45 Temperature Pulse Rate 60 60 Respiratory Rate 19 18 Blood Pressure 79/52 L 81/51 L Pulse Oximetry 96 93 L 93 L 02/12/18 09:00 02/12/18 09:15 02/12/18 09:30 Temperature Pulse Rate 60 60 60 Respiratory Rate 18 18 18 Blood Pressure 84/53 L 82/52 L 82/51 L Pulse Oximetry 93 L 92 L 93 L 02/12/18 09:45 02/12/18 10:00 02/12/18 10:30 Temperature Pulse Rate 59 L 58 L 62 Respiratory Rate 18 18 20 Blood Pressure 82/52 L 77/50 L 83/50 L Pulse Oximetry 93 L 94 L 94 L 02/12/18 11:00 02/12/18 11:17 02/12/18 11:30 Temperature Pulse Rate 68 70 79 Respiratory Rate 24 31 H 25 H Blood Pressure 86/55 L 87/54 L 122/63 Pulse Oximetry 94 L 93 L 97 02/12/18 12:00 02/12/18 12:30 02/12/18 13:00 Temperature 98.7 F Pulse Rate 76 75 73 Respiratory Rate 26 H 23 24 Blood Pressure 102/65 91/50 L 88/52 L Pulse Oximetry 96 02/12/18 13:30 02/12/18 14:00 02/12/18 14:45 Temperature Pulse Rate 75 76 82 Respiratory Rate 23 26 H 20 Blood Pressure 89/55 L 84/56 L 87/54 L Pulse Oximetry 94 L 93 L 96 02/12/18 15:00 02/12/18 15:30 02/12/18 16:00 Temperature Pulse Rate 80 77 78 Respiratory Rate 19 12 20 Blood Pressure 94/59 L 93/53 L 102/55 L Pulse Oximetry 95 94 L 94 L 02/12/18 16:30 02/12/18 17:00 02/12/18 17:26 Temperature Pulse Rate 78 79 81 Respiratory Rate 14 15 22 Blood Pressure 95/53 L 95/53 L Pulse Oximetry 94 L 95 02/12/18 17:29 02/12/18 17:30 02/12/18 18:00 Temperature Pulse Rate 83 83 Respiratory Rate 26 H 14 13 Blood Pressure 110/61 103/57 L Pulse Oximetry 95 95 95 02/12/18 18:30 02/12/18 19:00 02/12/18 19:30 Temperature Pulse Rate 84 85 86 Respiratory Rate 21 23 21 Blood Pressure 104/59 L 104/56 L 111/60 Pulse Oximetry 94 L 95 95 02/12/18 20:00 02/12/18 20:30 02/12/18 21:00 Temperature 99.1 F Pulse Rate 84 77 74 Respiratory Rate 24 20 19 Blood Pressure 112/63 103/63 98/55 L Pulse Oximetry 95 95 95 02/12/18 21:11 02/12/18 21:30 02/12/18 22:00 Temperature Pulse Rate 73 75 Respiratory Rate 19 19 23 Blood Pressure 99/60 L 100/59 L Pulse Oximetry 94 L 94 L 94 L 02/12/18 22:30 02/12/18 23:00 02/12/18 23:30 Temperature Pulse Rate 72 71 72 Respiratory Rate 18 23 18 Blood Pressure 90/55 L 96/55 L 91/55 L Pulse Oximetry 96 97 96 02/13/18 00:00 02/13/18 00:29 02/13/18 00:30 Temperature Pulse Rate 69 68 Respiratory Rate 17 18 18 Blood Pressure 93/54 L 94/55 L Pulse Oximetry 96 96 96 02/13/18 01:00 02/13/18 01:30 02/13/18 02:00 Temperature Pulse Rate 67 68 72 Respiratory Rate 18 18 19 Blood Pressure 93/54 L 93/55 L 81/48 L Pulse Oximetry 95 95 95 02/13/18 02:30 02/13/18 03:00 02/13/18 03:30 Temperature Pulse Rate 73 71 72 Respiratory Rate 22 21 23 Blood Pressure 84/54 L 86/53 L 83/53 L Pulse Oximetry 95 95 95 02/13/18 04:00 02/13/18 04:30 02/13/18 05:00 Temperature 99.0 F Pulse Rate 69 67 66 Respiratory Rate 18 18 18 Blood Pressure 86/54 L 86/50 L 88/50 L Pulse Oximetry 96 95 95 02/13/18 05:01 02/13/18 05:30 02/13/18 06:00 Temperature Pulse Rate 66 68 Respiratory Rate 18 19 18 Blood Pressure 87/50 L 87/50 L Pulse Oximetry 95 94 L 94 L 02/13/18 08:21 Temperature Pulse Rate Respiratory Rate 22 Blood Pressure Pulse Oximetry 95 Intake & Output 02/12/18 02/13/18 02/13/18 18:59 06:59 18:59 Intake Total 1468 / 1468 1108 / 1108 110 / 110 Output Total Balance 1468 / 1468 1098 / 1098 110 / 110 Weight 109.5 kg Intake: IV 1000 / 1000 680 / 680 110 / 110 Cordarone Inj 450 MG In NS Inj 180 / 180 241 ML @ 0.5 MG/MIN 16.66 mls/ hr IV.SIG .Q15H1M [facility] Rx#: [id number] Maxipime Inj 2,000 MG In NS Inj 100 / 100 100 ML @ 200 mls/hr IV.SIG Q24H [facility] Rx#:[id number] Teflaro Inj 600 MG In NS Inj 200 / 200 100 / 100 100 ML @ 100 mls/hr IV.SIG Q8H [facility] Rx#:[id number] Precedex Inj 1,000 MCG In NS 200 / 200 250 / 250 Inj 240 ML @ 0.2 MCG/KG/HR 5.35 mls/hr IV.SIG TITRATE PRN Rx#: [id number] Prostaphlin Inj 2 GM In NS Inj 320 / 320 330 / 330 110 / 110 100 ML @ 200 mls/hr IV.SIG Q4H [facility] Rx#:[id number] Tube Feeding 268 / 268 368 / 368 Tube Irrigant 200 / 200 60 / 60 Output: Urine Amount (Catheter) 10 / 10 Coude 10 / 10 Chest Tube Drainage 0 / 0 #1 Right Anterior 0 / 0 Other: Date of Last Bowel Movement 02/12/18 02/12/18 # Bowel Movements 5 - Constitutional no acute distress - Routine HEENT Exam Head: Present: normocephalic - Routine Neck Exam Present: supple - Routine Respiratory Exam Present: patient mechanically ventilated - Routine Cardiovascular Exam Present: RRR - Routine Abdominal Exam Present: soft - Routine Skin Exam Present: intact - Routine Psychiatric Exam Present: unable to assess - Urinary Catheter Management Coude Cath placed during this visit: yes Urethral indwelling: Yes Reason for continuing: Other continuation reason Insertion date: 02/02/18 Assessment and Plan - Assessment (1) Acute renal failure (ARF) Code(s): N17.9 - Acute kidney failure, unspecified Status: Acute (2) Sepsis Code(s): A41.9 - Sepsis, unspecified organism Status: Acute (3) Respiratory failure Code(s): J96.90 - Respiratory failure, unspecified, unspecified whether with hypoxia or hypercapnia Status: Acute (4) Hypotension Code(s): I95.9 - Hypotension, unspecified Status: Acute Plan: Assessment Acute renal failure Anemia ICD Codes: N17.9 - Acute kidney failure, unspecified Plan: Patient has minimal UOP Initially on CRRT started on 02/04 for acute renal failure Vascath was removed, and re inserted. HD done Wednesday with removal of 2.5 liters of fluid Plan for next HD Wednesday Continue antibiotics. Watch for renal recovery. Respiratory failure Management per CC Anemia Respiratory failure Transfused Wednesday, HGb 7.2 today. may further transfuse with HD tomorrow if needed Sepsis ICD Codes: A41.9 - Sepsis, unspecified organism Plan: ID following EMILY negative, antibiotics per ID Rhabdomyolysis ICD Codes: M62.82 - Rhabdomyolysis Plan: Monitor CPK UTI (lower urinary tract infection) ICD Codes: N39.0 - Urinary tract infection, site not specified Plan: Patient has MSSA and ID is following Pneumonia ICD Codes: J18.9 - Pneumonia, unspecified organism Plan: Pleural effusion drained chest tube in place
[2018-02-13] MEDS ORDERED: WATER IV.SIG ONE ×2 (08:30)
[2018-02-13] MEDS ORDERED: CALCIUM CHLORIDE IV.SIG ONE ×2 (08:30)
[2018-02-13] MEDS ORDERED: DEXTROSE 5% IV.SIG ONE ×2 (08:30)
--- NOTE | 2018-02-13 17:14 | P.PNCA ---
<Brianda Lyn N - Last Filed: 02/13/18 16:59> Subjective Interval history: Pt intubated and sedated. Pt appears to be a little restless at this time. No cardiac events noted. Physical Exam Vital signs: Vital Signs 02/12/18 17:00 02/12/18 17:26 02/12/18 17:29 Temperature Pulse Rate 79 81 Respiratory Rate 15 22 26 H Blood Pressure 95/53 L Pulse Oximetry 95 95 02/12/18 17:30 02/12/18 18:00 02/12/18 18:30 Temperature Pulse Rate 83 83 84 Respiratory Rate 14 13 21 Blood Pressure 110/61 103/57 L 104/59 L Pulse Oximetry 95 95 94 L 02/12/18 19:00 02/12/18 19:30 02/12/18 20:00 Temperature 99.1 F Pulse Rate 85 86 84 Respiratory Rate 23 21 24 Blood Pressure 104/56 L 111/60 112/63 Pulse Oximetry 95 95 95 02/12/18 20:30 02/12/18 21:00 02/12/18 21:11 Temperature Pulse Rate 77 74 Respiratory Rate 20 19 19 Blood Pressure 103/63 98/55 L Pulse Oximetry 95 95 94 L 02/12/18 21:30 02/12/18 22:00 02/12/18 22:30 Temperature Pulse Rate 73 75 72 Respiratory Rate 19 23 18 Blood Pressure 99/60 L 100/59 L 90/55 L Pulse Oximetry 94 L 94 L 96 02/12/18 23:00 02/12/18 23:30 02/13/18 00:00 Temperature Pulse Rate 71 72 69 Respiratory Rate 23 18 17 Blood Pressure 96/55 L 91/55 L 93/54 L Pulse Oximetry 97 96 96 02/13/18 00:29 02/13/18 00:30 02/13/18 01:00 Temperature Pulse Rate 68 67 Respiratory Rate 18 18 18 Blood Pressure 94/55 L 93/54 L Pulse Oximetry 96 96 95 02/13/18 01:30 02/13/18 02:00 02/13/18 02:30 Temperature Pulse Rate 68 72 73 Respiratory Rate 18 19 22 Blood Pressure 93/55 L 81/48 L 84/54 L Pulse Oximetry 95 95 95 02/13/18 03:00 02/13/18 03:30 02/13/18 04:00 Temperature 99.0 F Pulse Rate 71 72 69 Respiratory Rate 21 23 18 Blood Pressure 86/53 L 83/53 L 86/54 L Pulse Oximetry 95 95 96 02/13/18 04:30 02/13/18 05:00 02/13/18 05:01 Temperature Pulse Rate 67 66 Respiratory Rate 18 18 18 Blood Pressure 86/50 L 88/50 L Pulse Oximetry 95 95 95 02/13/18 05:30 02/13/18 06:00 02/13/18 06:30 Temperature Pulse Rate 66 68 68 Respiratory Rate 19 18 18 Blood Pressure 87/50 L 87/50 L 90/52 L Pulse Oximetry 94 L 94 L 94 L 02/13/18 07:00 02/13/18 07:30 02/13/18 08:00 Temperature 99.1 F Pulse Rate 66 66 72 Respiratory Rate 18 18 25 H Blood Pressure 89/51 L 87/50 L 78/51 L Pulse Oximetry 94 L 94 L 95 02/13/18 08:01 02/13/18 08:21 02/13/18 08:23 Temperature Pulse Rate 73 73 Respiratory Rate 30 H 22 21 Blood Pressure 81/51 L Pulse Oximetry 95 95 02/13/18 08:30 02/13/18 09:00 02/13/18 09:30 Temperature Pulse Rate 72 74 74 Respiratory Rate 28 H 25 H 27 H Blood Pressure 99/55 L 92/56 L 95/61 L Pulse Oximetry 95 94 L 95 02/13/18 10:00 02/13/18 10:30 02/13/18 11:00 Temperature Pulse Rate 74 70 70 Respiratory Rate 22 21 21 Blood Pressure 89/52 L 89/50 L 92/54 L Pulse Oximetry 94 L 95 95 02/13/18 11:30 02/13/18 12:00 02/13/18 12:08 Temperature 100.1 F H Pulse Rate 69 71 Respiratory Rate 23 24 24 Blood Pressure 93/53 L 98/55 L Pulse Oximetry 95 96 96 02/13/18 12:30 02/13/18 13:00 02/13/18 13:30 Temperature Pulse Rate 72 71 71 Respiratory Rate 24 22 22 Blood Pressure 98/57 L 91/53 L 92/53 L Pulse Oximetry 96 96 95 02/13/18 14:00 02/13/18 14:30 02/13/18 15:00 Temperature Pulse Rate 70 70 69 Respiratory Rate 24 25 H 24 Blood Pressure 100/58 L 99/60 L 97/53 L Pulse Oximetry 95 95 95 02/13/18 15:30 02/13/18 16:00 02/13/18 16:59 Temperature 99.6 F Pulse Rate 69 69 69 Respiratory Rate 33 H 20 23 Blood Pressure 97/64 L 100/60 Pulse Oximetry 94 L 100 Intake & Output 02/12/18 02/13/18 02/13/18 18:59 06:59 18:59 Intake Total 1468 / 1468 1108 / 1108 680 / 680 Output Total Balance 1468 / 1468 1098 / 1098 680 / 680 Weight 109.5 kg Intake: IV 1000 / 1000 680 / 680 680 / 680 Cordarone Inj 450 MG In NS Inj 180 / 180 241 ML @ 0.5 MG/MIN 16.66 mls/ hr IV.SIG .Q15H1M LEROY Rx#: [id number] Maxipime Inj 2,000 MG In NS Inj 100 / 100 100 ML @ 200 mls/hr IV.SIG Q24H LEROY Rx#:[id number] Teflaro Inj 600 MG In NS Inj 200 / 200 100 / 100 100 / 100 100 ML @ 100 mls/hr IV.SIG Q8H LEROY Rx#:[id number] Precedex Inj 1,000 MCG In NS 200 / 200 250 / 250 250 / 250 Inj 240 ML @ 0.2 MCG/KG/HR 5.35 mls/hr IV.SIG TITRATE PRN Rx#: [id number] Prostaphlin Inj 2 GM In NS Inj 320 / 320 330 / 330 330 / 330 100 ML @ 200 mls/hr IV.SIG Q4H LEROY Rx#:[id number] Tube Feeding 268 / 268 368 / 368 Tube Irrigant 200 / 200 60 / 60 Output: Urine Amount (Catheter) 10 Coude 10 Chest Tube Drainage 0 / 0 #1 Right Anterior 0 / 0 Other: Date of Last Bowel Movement 02/12/18 02/12/18 02/13/18 # Bowel Movements 5 - Constitutional no acute distress - Routine HEENT Exam Head: Present: normocephalic - Routine Respiratory Exam Present: patient mechanically ventilated, distant breath sounds - Routine Cardiovascular Exam Present: RRR - Routine Abdominal Exam Comments: flexiseal present - Routine Extremities Exam Present: pulses intact, normal capillary refill - Urinary Catheter Management Coude Cath placed during this visit: yes Urethral indwelling: Yes Reason for continuing: Other continuation reason Insertion date: 02/02/18 Assessment and Plan - Assessment (1) Encephalopathy Code(s): G93.40 - Encephalopathy, unspecified Status: Acute (2) Septic shock Code(s): A41.9 - Sepsis, unspecified organism; R65.21 - Severe sepsis with septic shock Status: Acute (3) Atrial flutter Code(s): I48.92 - Unspecified atrial flutter Status: Acute (4) ANIBAL (acute kidney injury) Code(s): N17.9 - Acute kidney failure, unspecified Status: Acute (5) Respiratory failure Code(s): J96.90 - Respiratory failure, unspecified, unspecified whether with hypoxia or hypercapnia Status: Acute - Plan No new cardiac issues. Rhythm stable. Continue abxs as per ID. Pt still intubated, wean vent as tolerated. Continue with current treatment plan. The patient was seen and evaluated by Dr. Delcid who participated in care, management and decision making. <Kellen Delcid - Last Filed: 02/14/18 13:21> Physical Exam Vital signs: Vital Signs 02/13/18 13:30 02/13/18 14:00 02/13/18 14:30 Temperature Pulse Rate 71 70 70 Respiratory Rate 22 24 25 H Blood Pressure 92/53 L 100/58 L 99/60 L Pulse Oximetry 95 95 95 02/13/18 15:00 02/13/18 15:30 02/13/18 16:00 Temperature 99.6 F Pulse Rate 69 69 69 Respiratory Rate 24 33 H 20 Blood Pressure 97/53 L 97/64 L 100/60 Pulse Oximetry 95 94 L 100 02/13/18 16:59 02/13/18 17:00 02/13/18 18:00 Temperature Pulse Rate 69 70 Respiratory Rate 23 24 Blood Pressure Pulse Oximetry 96 02/13/18 20:00 02/13/18 21:57 02/13/18 22:00 Temperature 101.5 F H Pulse Rate 70 70 Respiratory Rate 23 24 23 Blood Pressure 106/56 L Pulse Oximetry 96 97 02/14/18 00:00 02/14/18 00:29 02/14/18 02:00 Temperature 100.6 F H Pulse Rate 69 69 Respiratory Rate 24 26 H Blood Pressure 112/60 Pulse Oximetry 97 96 02/14/18 04:00 02/14/18 04:35 02/14/18 06:00 Temperature 100.4 F H Pulse Rate 66 65 65 Respiratory Rate 24 22 Blood Pressure 104/59 L Pulse Oximetry 96 96 02/14/18 08:00 02/14/18 08:49 02/14/18 10:00 Temperature 99.2 F Pulse Rate 68 69 68 Respiratory Rate 18 25 H Blood Pressure 92/50 L Pulse Oximetry 97 96 02/14/18 11:38 Temperature Pulse Rate Respiratory Rate 18 Blood Pressure Pulse Oximetry 97 Intake & Output 02/13/18 02/14/18 02/14/18 18:59 06:59 18:59 Intake Total 1517 / 1517 1356 / 1356 Output Total 627 / 627 Balance 890 / 890 1331 / 1331 Weight 249 lb 1.957 oz Intake: IV 980 / 980 700 / 700 Maxipime Inj 2,000 MG In NS Inj 100 / 100 100 ML @ 200 mls/hr IV.SIG Q24H LEROY Rx#:[id number] Teflaro Inj 600 MG In NS Inj 200 / 200 100 / 100 100 ML @ 100 mls/hr IV.SIG Q8H LEROY Rx#:[id number] Precedex Inj 1,000 MCG In NS 250 / 250 500 / 500 Inj 240 ML @ 0.2 MCG/KG/HR 5.35 mls/hr IV.SIG TITRATE PRN Rx#: [id number] Prostaphlin Inj 2 GM In NS Inj 430 / 430 100 / 100 100 ML @ 200 mls/hr IV.SIG Q4H LEROY Rx#:[id number] Oral 0 / 0 Tube Feeding 487 / 487 456 / 456 Tube Irrigant 200 / 200 Water Bolus Amount 50 / 50 0 / 0 Output: Urine 25 / 25 0 / 0 Stool 600 / 600 0 / 0 Pleural Fluid 0 / 0 Hemodialysis Amount 0 / 0 Urine Amount (Catheter) 25 / 25 Coude 25 / 25 Gastric Drainage 0 / 0 Orogastric Tube 0 / 0 Chest Tube Drainage 2 / 2 0 / 0 #1 Right Anterior 2 / 2 0 / 0 Other: Date of Last Bowel Movement 02/13/18 02/14/18 02/14/18 # Bowel Movements 0 # Incontinent Bowel Movements 0 - Urinary Catheter Management Coude Cath placed during this visit: no Assessment and Plan - Assessment (1) Encephalopathy Code(s): G93.40 - Encephalopathy, unspecified Status: Acute (2) Septic shock Code(s): A41.9 - Sepsis, unspecified organism; R65.21 - Severe sepsis with septic shock Status: Acute (3) Atrial flutter Code(s): I48.92 - Unspecified atrial flutter Status: Acute (4) ANIBAL (acute kidney injury) Code(s): N17.9 - Acute kidney failure, unspecified Status: Acute (5) Respiratory failure Code(s): J96.90 - Respiratory failure, unspecified, unspecified whether with hypoxia or hypercapnia Status: Acute - Attending Attestation Patient seen and examined. I reviewed and agree with the findings and plan presented. Continue ICU care.
--- NOTE | 2018-02-13 17:39 | P.PNID ---
Subjective Remarks: ID COVERAGE Most of the history of optimal review of medical records. is a 57-year-old male with very strong current history of alcohol abuse. His brother and [id number] were in the room report that he drinks greater than a pint for at least 25 years. Patient is a resident of [place] and reportedly moved here to be close to his brother. [facility]. Patient's brother reports that they often go to patient's house for safety checks. The last time he was reportedly normal was 5 days prior to him coming to the hospital. When patient' s brother went to visit him on the day of admission patient was markedly obtunded and difficult to arouse and had some matting of his eyelids and brother called EMS reportedly. When patient was seen by EMS she was found to be significantly encephalopathic and there was a concern for airway protection and therefore he was intubated for acute hypoxemia and hypercarbia. Reportedly was also an SVT with a heart rate greater than 200. In the emergency department he was cardioverted and was hypotensive requiring pressors. Patient was admitted to the ICU under critical care team. Patient is currently on vasopressors Larry-Synephrine at 100 mics, he is also on a propofol drip for sedation. He is currently on a ventilator with AC 50% FiO2, PEEP of 5 not much respiratory secretions noted. He also has a right-sided chest tube which was placed when a large effusion was noted on the CT scan. Per description by RN there was a lot of yellow looking purulent material noted when the chest tube was placed. Urology has been consulted because [place] was difficult to be placed. Patient does not have much in terms of her urine output and is currently at 50 cc. GI is following patient as well. Sepsis workup was initiated on admission infectious diseases consulted for evaluation and management of septic shock secondary to possibly right-sided empyema. Overnight events reviewed with RN. Low grade fevers. Off pressors. HD in am. No generalized rash No diarrhea. No BM. Antibiotics: Cefepime IV Flagyl IV Oxacillin IV Teflaro IV Lines: Line sites ok Past Medical History: Diabetes Hypertension Significant EtOH history some shoulder surgery Allergies/Adverse Reactions: Allergies lisinopril Allergy (Severe, Verified 02/05/18 06:22) airway edema Sulfa (Sulfonamide Antibiotics) Allergy (Severe, Verified 02/05/18 06:22) Edema, Localized AIRWAY EDEMA Objective Vital Signs 02/12/18 18:00 02/12/18 18:30 02/12/18 19:00 Temperature Pulse Rate 83 84 85 Respiratory Rate 13 21 23 Blood Pressure 103/57 L 104/59 L 104/56 L Pulse Oximetry 95 94 L 95 02/12/18 19:30 02/12/18 20:00 02/12/18 20:30 Temperature 99.1 F Pulse Rate 86 84 77 Respiratory Rate 21 24 20 Blood Pressure 111/60 112/63 103/63 Pulse Oximetry 95 95 95 02/12/18 21:00 02/12/18 21:11 02/12/18 21:30 Temperature Pulse Rate 74 73 Respiratory Rate 19 19 19 Blood Pressure 98/55 L 99/60 L Pulse Oximetry 95 94 L 94 L 02/12/18 22:00 02/12/18 22:30 02/12/18 23:00 Temperature Pulse Rate 75 72 71 Respiratory Rate 23 18 23 Blood Pressure 100/59 L 90/55 L 96/55 L Pulse Oximetry 94 L 96 97 02/12/18 23:30 02/13/18 00:00 02/13/18 00:29 Temperature Pulse Rate 72 69 Respiratory Rate 18 17 18 Blood Pressure 91/55 L 93/54 L Pulse Oximetry 96 96 96 02/13/18 00:30 02/13/18 01:00 02/13/18 01:30 Temperature Pulse Rate 68 67 68 Respiratory Rate 18 18 18 Blood Pressure 94/55 L 93/54 L 93/55 L Pulse Oximetry 96 95 95 02/13/18 02:00 02/13/18 02:30 02/13/18 03:00 Temperature Pulse Rate 72 73 71 Respiratory Rate 19 22 21 Blood Pressure 81/48 L 84/54 L 86/53 L Pulse Oximetry 95 95 95 02/13/18 03:30 02/13/18 04:00 02/13/18 04:30 Temperature 99.0 F Pulse Rate 72 69 67 Respiratory Rate 23 18 18 Blood Pressure 83/53 L 86/54 L 86/50 L Pulse Oximetry 95 96 95 02/13/18 05:00 02/13/18 05:01 02/13/18 05:30 Temperature Pulse Rate 66 66 Respiratory Rate 18 18 19 Blood Pressure 88/50 L 87/50 L Pulse Oximetry 95 95 94 L 02/13/18 06:00 02/13/18 06:30 02/13/18 07:00 Temperature Pulse Rate 68 68 66 Respiratory Rate 18 18 18 Blood Pressure 87/50 L 90/52 L 89/51 L Pulse Oximetry 94 L 94 L 94 L 02/13/18 07:30 02/13/18 08:00 02/13/18 08:01 Temperature 99.1 F Pulse Rate 66 72 73 Respiratory Rate 18 25 H 30 H Blood Pressure 87/50 L 78/51 L 81/51 L Pulse Oximetry 94 L 95 95 02/13/18 08:21 02/13/18 08:23 02/13/18 08:30 Temperature Pulse Rate 73 72 Respiratory Rate 22 21 28 H Blood Pressure 99/55 L Pulse Oximetry 95 95 02/13/18 09:00 02/13/18 09:30 02/13/18 10:00 Temperature Pulse Rate 74 74 74 Respiratory Rate 25 H 27 H 22 Blood Pressure 92/56 L 95/61 L 89/52 L Pulse Oximetry 94 L 95 94 L 02/13/18 10:30 02/13/18 11:00 02/13/18 11:30 Temperature Pulse Rate 70 70 69 Respiratory Rate 21 21 23 Blood Pressure 89/50 L 92/54 L 93/53 L Pulse Oximetry 95 95 95 02/13/18 12:00 02/13/18 12:08 02/13/18 12:30 Temperature 100.1 F H Pulse Rate 71 72 Respiratory Rate 24 24 24 Blood Pressure 98/55 L 98/57 L Pulse Oximetry 96 96 96 02/13/18 13:00 02/13/18 13:30 02/13/18 14:00 Temperature Pulse Rate 71 71 70 Respiratory Rate 22 22 24 Blood Pressure 91/53 L 92/53 L 100/58 L Pulse Oximetry 96 95 95 02/13/18 14:30 02/13/18 15:00 02/13/18 15:30 Temperature Pulse Rate 70 69 69 Respiratory Rate 25 H 24 33 H Blood Pressure 99/60 L 97/53 L 97/64 L Pulse Oximetry 95 95 94 L 02/13/18 16:00 02/13/18 16:59 02/13/18 17:00 Temperature 99.6 F Pulse Rate 69 69 Respiratory Rate 20 23 24 Blood Pressure 100/60 Pulse Oximetry 100 96 Intake & Output 02/12/18 02/13/18 02/13/18 18:59 06:59 18:59 Intake Total 1468 / 1468 1108 / 1108 680 / 680 Output Total Balance 1468 / 1468 1098 / 1098 680 / 680 Weight 109.5 kg Intake: IV 1000 / 1000 680 / 680 680 / 680 Cordarone Inj 450 MG In NS Inj 180 / 180 241 ML @ 0.5 MG/MIN 16.66 mls/ hr IV.SIG .Q15H1M LEROY Rx#: [id number] Maxipime Inj 2,000 MG In NS Inj 100 / 100 100 ML @ 200 mls/hr IV.SIG Q24H LEROY Rx#:[id number] Teflaro Inj 600 MG In NS Inj 200 / 200 100 / 100 100 / 100 100 ML @ 100 mls/hr IV.SIG Q8H LEROY Rx#:[id number] Precedex Inj 1,000 MCG In NS 200 / 200 250 / 250 250 / 250 Inj 240 ML @ 0.2 MCG/KG/HR 5.35 mls/hr IV.SIG TITRATE PRN Rx#: [id number] Prostaphlin Inj 2 GM In NS Inj 320 / 320 330 / 330 330 / 330 100 ML @ 200 mls/hr IV.SIG Q4H LEROY Rx#:[id number] Tube Feeding 268 / 268 368 / 368 Tube Irrigant 200 / 200 60 / 60 Output: Urine Amount (Catheter) 10 / 10 Coude 10 / 10 Chest Tube Drainage 0 / 0 #1 Right Anterior 0 / 0 Other: Date of Last Bowel Movement 02/12/18 02/12/18 02/13/18 # Bowel Movements 5 02/11/18 04:50 Blood - Peripheral Aerobic Blood Culture - Preliminary No growth in 2 days 02/11/18 04:50 Blood - Peripheral Anaerobic Blood Culture - Preliminary No growth in 2 days 02/11/18 04:57 Blood - Peripheral Aerobic Blood Culture - Preliminary No growth in 2 days 02/11/18 04:57 Blood - Peripheral Anaerobic Blood Culture - Preliminary No growth in 2 days 02/08/18 14:02 Blood - Peripheral Aerobic Blood Culture - Final Staphylococcus epidermidis 02/08/18 14:02 Blood - Peripheral Anaerobic Blood Culture - Final No growth in 5 days 02/08/18 13:55 Blood - Peripheral Aerobic Blood Culture - Final Staphylococcus epidermidis 02/08/18 13:55 Blood - Peripheral Anaerobic Blood Culture - Final No growth in 5 days 02/07/18 03:59 Blood - Peripheral Aerobic Blood Culture - Final Staphylococcus aureus 02/07/18 03:59 Blood - Peripheral Anaerobic Blood Culture - Final No growth in 5 days 02/06/18 10:59 Blood - Peripheral Aerobic Blood Culture - Final Staphylococcus aureus 02/06/18 10:59 Blood - Peripheral Anaerobic Blood Culture - Final No growth in 5 days Lab - Hematology Results 02/12/18 02/13/18 03:14 04:35 WBC 4.2 4.2 RBC 2.60 L 2.38 L Hgb 7.9 L 7.2 L Hct 23.7 L 21.7 L MCV 91.4 91.5 MCH 30.5 30.2 MCHC 33.3 32.9 RDW 17.5 H 18.4 H Plt Count 78 L 110 L D MPV 10.3 9.7 Prelim Diff (Auto) Slide review pending Neut % (Auto) 86.2 H 86.1 H Lymph % (Auto) 5.2 L 5.6 L [place] % (Auto) 6.5 7.1 Eos % (Auto) 0.6 0.3 Baso % (Auto) 1.5 0.9 Neut # (Auto) 3.6 3.6 Lymph # (Auto) 0.2 L 0.2 L [place] # (Auto) 0.3 0.3 Eos # (Auto) 0.0 0.0 Baso # (Auto) 0.1 0.0 WBC Differential . . Diff Scan Auto diff confirmed Differential Comment . Auto diff final Lab - Chemistry Results 02/11/18 02/12/18 02/12/18 18:08 01:44 03:14 Sodium 141 Potassium 4.7 D Chloride 105 Carbon Dioxide 21.5 Anion Gap 15 BUN 68 H Creatinine 4.67 H Estimated GFR 13 L POC Glucose 220 H 254 H Random Glucose 238 H D Calcium 6.7 L* Prot Corrected Calcium 7.4 L* Total Bilirubin 6.9 H AST 45 H ALT 23 Alkaline Phosphatase 182 H Total Protein 5.7 L Albumin 1.6 L 02/12/18 02/12/18 02/12/18 06:04 13:06 18:22 Sodium Potassium Chloride Carbon Dioxide Anion Gap BUN Creatinine Estimated GFR POC Glucose 219 H 233 H 227 H Random Glucose Calcium Prot Corrected Calcium Total Bilirubin AST ALT Alkaline Phosphatase Total Protein Albumin 02/13/18 02/13/18 02/13/18 01:39 04:35 05:34 Sodium 144 Potassium 4.6 Chloride 107 Carbon Dioxide 19.4 L Anion Gap 18 H BUN 81 H Creatinine 5.69 H Estimated GFR 10 L POC Glucose 312 H 232 H Random Glucose 213 H Calcium 6.6 L* Prot Corrected Calcium 7.4 L* Total Bilirubin 5.6 H AST 49 H ALT 23 Alkaline Phosphatase 278 H Total Protein 5.5 L Albumin 1.3 L 02/13/18 02/13/18 11:44 17:29 Sodium Potassium Chloride Carbon Dioxide Anion Gap BUN Creatinine Estimated GFR POC Glucose 242 H 245 H Random Glucose Calcium Prot Corrected Calcium Total Bilirubin AST ALT Alkaline Phosphatase Total Protein Albumin Imaging: ITS Impressions Chest X-Ray 02/10/18 00:00 CONCLUSION: Stable examination compared to the prior study. Cholangiopancreatography MRI 02/10/18 00:00 CONCLUSION: No evidence of biliary obstruction Abdomen X-Ray 02/11/18 00:00 CONCLUSION: Nonspecific bowel gas pattern with some mildly dilated loops of colon. No definite mechanical obstruction is demonstrated. Physical Exam: GENERAL: Sedated, on the vent, NAD SKIN: Cool and dry, no generalized rash HEAD: Atraumatic. Normocephalic. No temporal or scalp tenderness. EYES: Pupils equal round and reactive. Scleral icterus. No injection or drainage. No petechia ENT: Orally intubated NECK: Trachea midline. Supple, nontender, no meningeal signs. CARDIOVASCULAR: HS audible. RESPIRATORY: AE decreased in the bases R>L. Right side CT with serous fluid noted GASTROINTESTINAL: Abdomen distended, some grimacing during palpation MUSCULOSKELETAL: Extremities without clubbing, cyanosis. Septic emboli to feet noted. Has a large hemorrhagic bullous lesion on L palm NEUROLOGICAL: Sedated Psych could not be assessed IV line sites ok. Assessment and Plan - Plan MSSA sepsis, Septic Shock, on pressors Right side Pulm Empyema, MSSA Rule out endocarditis. Polymicrobial PNA ( PSAE, second GNR, Staph aureus) also likely aspiration in setting of alcoholism Cardiomegaly: ? alcohol related vs CAD. MSSA in urine. Acute resp failure on vent Acute oliguric renal failure: prerenal, sepsis. - on CVVHD Acute metabolic encephalopathy: sepsis, metabolic. Leukocytosis Thrombocytopenia: sepsis, no DIC RECOMMENDATION Continue IV Oxacillin for MSSA Continue IV Cefepime for PSAE and E coli Continue Teflaro IV (as second MSSA agent pending clearance of bacteremia) Repeat BC to document clearing Sputum cultures. If fevers persist will get CT C/A/P to look for evidence of further dissemination. EMILY negative. Follow cultures. Follow EMILY results. Monitor progress D/W RN Prognosis guarded.
--- NOTE | 2018-02-13 22:32 | XR ---
EXAM DATE: 02/13/2018 10:23 PM EDT AGE/SEX: 57 years / Male INDICATIONS: Respiratory disease CLINICAL DATA: This is the patient's subsequent encounter. Patient reports that signs and symptoms h ave been present for 4 - 6 days and indicates a pain score of Nonresponsive. MEDICAL/SURGICAL HISTORY: Hypertension. None. COMPARISON: [facility], CHEST 1V SINGLE AP, 02/10/2018. . FINDINGS: Endotracheal tube tip is in satisfactory position. NG enters stomach. Right central line near cavoatr ial junction. Bilateral mostly basilar airspace disease and pleural effusions are similar to August 13. Left shoulder joint replacement. CONCLUSION: Support apparatus unchanged. Stable basilar airspace disease and pleural effusions. Electronically signed by: Kei Larson MD 02/13/2018 10:30 PM EDT
[2018-02-14] MEDS: Insulin NovoLOG Aspart Correctional Sugar Inj SQ SCH ×4 (00:47→22:02)
--- NOTE | 2018-02-14 03:12 | XR ---
EXAM DATE: 02/14/2018 2:40 AM EDT AGE/SEX: 57 years / Male INDICATIONS: Respiratory failure. CLINICAL DATA: This is the patient's subsequent encounter. Patient reports that signs and symptoms h ave been present for 1 week and indicates a pain score of Nonresponsive. MEDICAL/SURGICAL HISTORY: Hypertension. None. COMPARISON: [facility], CHEST 1V SINGLE AP, 02/13/2018. . FINDINGS: Stable ETT, right IJ central line and NGT coursing beyond the GE junction. Stable bilateral pleural e ffusions and associated airspace disease in the lower lobes. Cardiomediastinal contours are stable. R emainder of exam is unchanged. CONCLUSION: 1. No significant interval change. 2. Stable tubes and lines. 3. Stable bilateral pleural effusions and associated lower lobe airspace disease. Electronically signed by: Sushant eLal MD 02/14/2018 3:11 AM EDT
[2018-02-14] MEDS: Dexmedetomidine Inj 1,000 MCG in Sodium Chlor 0.9% Inj 240 ML IV.SIG PRN ×3 (06:36→20:20)
[2018-02-14 07:19] LABS: Baso # (Auto) 0.1 th/mm3 (0.0-0.2); Baso % (Auto) 1.4 % (0.0-2.0); Eos % (Auto) 0.3 % (0.0-4.0); Hematocrit 21.5 % (39.0-51.0); Hemoglobin 7.1 gm/dL (13.0-17.0); Lymph # (Auto) 0.5 th/mm3 (1.0-4.8); Lymph % (Auto) 11.8 % (9.0-44.0); Mean Corpuscular HGB Conc 32.9 % (32.0-36.0); Mean Corpuscular Hemoglobin 30.8 pg (27.0-34.0); Mean Corpuscular Volume 93.6 fL (80.0-100.0); Mean Platelet Volume 9.8 fL (7.0-11.0); Mono # (Auto) 0.3 th/mm3 (0.0-0.9); Mono % (Auto) 6.5 % (0.0-8.0); Neut # (Auto) 3.4 th/mm3 (1.8-7.7); Platelet Count 139 th/mm3 (150-450); Red Cell Distribution Width 18.8 % (11.6-17.2); White Blood Count 4.3 th/mm3 (4.0-11.0)
[2018-02-14 07:35] LABS: Albumin 1.2 g/dL (3.4-5.0); Calcium 6.9 mg/dL (8.5-10.1); Carbon Dioxide 16.9 meq/L (21.0-32.0); Potassium 5.4 meq/L (3.5-5.1); Total Protein 5.9 g/dL (6.4-8.2)
--- NOTE | 2018-02-14 09:30 | CF ---
cc: Kellen Delcid MD DATE: 02/10/2018 INDICATION: Sepsis, bacteremia, evaluation for endocarditis. PROCEDURE: 1. Transesophageal echocardiogram. 2. Moderate sedation. MEDICATIONS: Propofol IV. DESCRIPTION OF PROCEDURE: After the patient was sedated, transesophageal probe was placed without difficulty. Tomographic images were obtained. Left ventricle function was borderline, with estimated ejection fraction of 50% with no segmental wall motion abnormalities. The left atrial appendage was visualized and there was no evidence of left atrial thrombus. Aortic valve was structurally normal. There was no aortic stenosis or regurgitation. There was no evidence of aortic valve vegetations. There was no evidence of an abscess in perivalvular structures. Mitral valve was structurally normal. There was no evidence of mitral stenosis. There was evidence of trace mitral regurgitation. There was no evidence of mitral valve vegetations. There was evidence of trace tricuspid regurgitation. There was no evidence of tricuspid valve vegetations. There is no evidence of pulmonary valve stenosis or regurgitation. There is no evidence of pulmonary valve vegetations. A bubble study was performed and there was no evidence of [id number]-[id number] shunt. The descending thoracic aorta had no significant plaque. DIAGNOSES: 1. No evidence of valvular vegetations. 2. No evidence of perivalvular abscess. 3. Borderline normal left ventricular systolic function. 4. Trace mitral regurgitation. 5. Trace tricuspid regurgitation. IMPRESSION: No evidence of endocarditis. Kellen Delcid MD OTravis/KALEY , 06:36 PM , 06:57 PM [facility]
--- NOTE | 2018-02-14 09:36 | P.PNPAL ---
Reason for Visit Reason for visit: a. To assist with evaluation and management of symptoms including: pain, anxiety b. To assist medical decision maker(s) with: better understanding of current medical conditions; weighing benefits/burdens of medical treatment options; making medical treatment decisions. Subjective Subjective/Interval History: Pt on precedex drip for pain/anxiety. Patient off pressors, continue to be on hemodialysis. Continue to be intubated Chest X ray continue to show stable bilateraly pleural effusions and associated lower lobe airspace. EMILY did not show any evidence of endocarditis. Continues to spike temps. Tmax 100.6. Family/Friend Interactions: I spoke with patient's son/ health care proxy. Pt would not want peg and trach. If he is not able to be medically extubated by around 14 days, he would be amenable to transition to comfort. If pt was able to be medically extubated , son do not feel patient would want to undergo another intubation. He is amenable to switch to a DNR/DNI. Objective Vital Signs: Vital Signs 02/13/18 09:30 02/13/18 10:00 02/13/18 10:30 Temperature Pulse Rate 74 74 70 Respiratory Rate 27 H 22 21 Blood Pressure 95/61 L 89/52 L 89/50 L Pulse Oximetry 95 94 L 95 02/13/18 11:00 02/13/18 11:30 02/13/18 12:00 Temperature 100.1 F H Pulse Rate 70 69 71 Respiratory Rate 21 23 24 Blood Pressure 92/54 L 93/53 L 98/55 L Pulse Oximetry 95 95 96 02/13/18 12:08 02/13/18 12:30 02/13/18 13:00 Temperature Pulse Rate 72 71 Respiratory Rate 24 24 22 Blood Pressure 98/57 L 91/53 L Pulse Oximetry 96 96 96 02/13/18 13:30 02/13/18 14:00 02/13/18 14:30 Temperature Pulse Rate 71 70 70 Respiratory Rate 22 24 25 H Blood Pressure 92/53 L 100/58 L 99/60 L Pulse Oximetry 95 95 95 02/13/18 15:00 02/13/18 15:30 02/13/18 16:00 Temperature 99.6 F Pulse Rate 69 69 69 Respiratory Rate 24 33 H 20 Blood Pressure 97/53 L 97/64 L 100/60 Pulse Oximetry 95 94 L 100 02/13/18 16:59 02/13/18 17:00 02/13/18 18:00 Temperature Pulse Rate 69 70 Respiratory Rate 23 24 Blood Pressure Pulse Oximetry 96 02/13/18 20:00 02/13/18 21:57 02/13/18 22:00 Temperature 101.5 F H Pulse Rate 70 70 Respiratory Rate 23 24 23 Blood Pressure 106/56 L Pulse Oximetry 96 97 02/14/18 00:00 02/14/18 00:29 02/14/18 02:00 Temperature 100.6 F H Pulse Rate 69 69 Respiratory Rate 24 26 H Blood Pressure 112/60 Pulse Oximetry 97 96 02/14/18 04:00 02/14/18 04:35 02/14/18 06:00 Temperature 100.4 F H Pulse Rate 66 65 65 Respiratory Rate 24 22 Blood Pressure 104/59 L Pulse Oximetry 96 96 02/14/18 08:49 Temperature Pulse Rate 69 Respiratory Rate 25 H Blood Pressure Pulse Oximetry 96 Intake & Output 02/13/18 02/14/18 02/14/18 18:59 06:59 18:59 Intake Total 1517 / 1517 1256 / 1256 Output Total 627 / 627 Balance 890 / 890 1231 / 1231 Weight 113 kg Intake: IV 980 / 980 600 / 600 Maxipime Inj 2,000 MG In NS Inj 100 / 100 100 ML @ 200 mls/hr IV.SIG Q24H LEROY Rx#:[id number] Teflaro Inj 600 MG In NS Inj 200 / 200 100 ML @ 100 mls/hr IV.SIG Q8H LEROY Rx#:[id number] Precedex Inj 1,000 MCG In NS 250 / 250 500 / 500 Inj 240 ML @ 0.2 MCG/KG/HR 5.35 mls/hr IV.SIG TITRATE PRN Rx#: [id number] Prostaphlin Inj 2 GM In NS Inj 430 / 430 100 / 100 100 ML @ 200 mls/hr IV.SIG Q4H LEROY Rx#:[id number] Oral 0 / 0 Tube Feeding 487 / 487 456 / 456 Tube Irrigant 200 / 200 Water Bolus Amount 50 / 50 0 / 0 Output: Urine 25 / 25 0 / 0 Stool 600 / 600 0 / 0 Pleural Fluid 0 / 0 Hemodialysis Amount 0 / 0 Urine Amount (Catheter) 25 / 25 Coude 25 / 25 Gastric Drainage 0 / 0 Orogastric Tube 0 / 0 Chest Tube Drainage 2 0 / 0 #1 Right Anterior / 0 / 0 Other: Date of Last Bowel Movement 02/13/18 02/14/18 # Bowel Movements 0 # Incontinent Bowel Movements 0 Physical Exam: CONSTITUTIONAL/GENERAL: This is a critically ill 57 year old male, intubated and sedated TUBES/LINES/DRAINS: pigtail cathether, quezada, ET tube, central line. SKIN:jaundice HEAD: Atraumatic. Normocephalic. EYES: Pupils equal and round and reactive. Icteric scelera ENT: Hearing grossly normal. Nose without bleeding or purulent drainage. Throat ET tube present NECK: Trachea midline. Supple, nontender. No palpable thyroid enlargement or nodularity. CARDIOVASCULAR: Regular rate and rhythm without murmurs, gallops, or rubs. No JVD. RESPIRATORY/CHEST:Rhonchi bilaterally. GASTROINTESTINAL: Abdomen distended. soft. BS present. GENITOURINARY: Without palpable bladder distension. Quezada catheter in place. MUSCULOSKELETAL: Extremities without clubbing, cyanosis. 2+ edema LYMPHATICS: No palpable cervical or supraclavicular adenopathy. NEUROLOGICAL: Intubated sedated PSYCHIATRIC: unable to elicit Diagnostic Tests Laboratory: Laboratory Results - last 72 hr 02/10/18 02/11/18 02/11/18 14:19 11:34 11:34 WBC 4.2 RBC 2.28 L Hgb 6.9 L* Hct 20.5 L* MCV 89.7 MCH 30.1 MCHC 33.6 RDW 18.3 H Plt Count 66 L MPV 10.2 Prelim Diff (Auto) Slide review pending Neut % (Auto) 83.9 H Lymph % (Auto) 10.5 [place] % (Auto) 4.3 Eos % (Auto) 0.6 Baso % (Auto) 0.7 Neut # (Auto) 3.5 Lymph # (Auto) 0.4 L [place] # (Auto) 0.2 Eos # (Auto) 0.0 Baso # (Auto) 0.0 WBC Differential Manual diff final Diff Scan Seg Neuts % (Manual) 82 H Band Neuts % (Manual) 12 H Lymphocytes % (Manual) 2 L Monocytes % (Manual) 4 Abs Neuts (Manual) 3.9 Differential Comment . Toxic Granulation 1+ H Platelet Estimate Low L Platelet Morphology Normal Stomatocytes 2+ H Sodium 145 Potassium 3.9 Chloride 106 Carbon Dioxide 24.4 Anion Gap 15 BUN 54 H Creatinine 3.93 H Estimated GFR 16 L POC Glucose Random Glucose 117 H D Calcium 7.0 L* Prot Corrected Calcium 7.7 L Total Bilirubin 5.9 H AST 42 H ALT 26 Alkaline Phosphatase 138 H Total Protein 5.8 L Albumin 2.0 L Anti-Smooth Muscle Ab Negative Blood Type Antibody Screen MTS Gel Crossmatch Bld Prod Order Comment 02/11/18 02/11/18 02/11/18 11:49 15:17 15:30 WBC RBC Hgb 6.2 L* Hct 18.8 L* MCV MCH MCHC RDW Plt Count MPV Prelim Diff (Auto) Neut % (Auto) Lymph % (Auto) [place] % (Auto) Eos % (Auto) Baso % (Auto) Neut # (Auto) Lymph # (Auto) [place] # (Auto) Eos # (Auto) Baso # (Auto) WBC Differential Diff Scan Seg Neuts % (Manual) Band Neuts % (Manual) Lymphocytes % (Manual) Monocytes % (Manual) Abs Neuts (Manual) Differential Comment Toxic Granulation Platelet Estimate Platelet Morphology Stomatocytes Sodium Potassium Chloride Carbon Dioxide Anion Gap BUN Creatinine Estimated GFR POC Glucose 134 H Random Glucose Calcium Prot Corrected Calcium Total Bilirubin AST ALT Alkaline Phosphatase Total Protein Albumin Anti-Smooth Muscle Ab Blood Type O Positive Antibody Screen Negative MTS Gel Crossmatch See Detail Bld Prod Order Comment 02/11/18 02/12/18 02/12/18 18:08 01:44 03:14 WBC 4.2 RBC 2.60 L Hgb 7.9 L Hct 23.7 L MCV 91.4 MCH 30.5 MCHC 33.3 RDW 17.5 H Plt Count 78 L MPV 10.3 Prelim Diff (Auto) Slide review pending Neut % (Auto) 86.2 H Lymph % (Auto) 5.2 L [place] % (Auto) 6.5 Eos % (Auto) 0.6 Baso % (Auto) 1.5 Neut # (Auto) 3.6 Lymph # (Auto) 0.2 L [place] # (Auto) 0.3 Eos # (Auto) 0.0 Baso # (Auto) 0.1 WBC Differential . Diff Scan Auto diff confirmed Seg Neuts % (Manual) Band Neuts % (Manual) Lymphocytes % (Manual) Monocytes % (Manual) Abs Neuts (Manual) Differential Comment . Toxic Granulation Platelet Estimate Platelet Morphology Stomatocytes Sodium Potassium Chloride Carbon Dioxide Anion Gap BUN Creatinine Estimated GFR POC Glucose 220 H 254 H Random Glucose Calcium Prot Corrected Calcium Total Bilirubin AST ALT Alkaline Phosphatase Total Protein Albumin Anti-Smooth Muscle Ab Blood Type Antibody Screen MTS Gel Crossmatch Bld Prod Order Comment 02/12/18 02/12/18 02/12/18 03:14 06:04 13:06 WBC RBC Hgb Hct MCV MCH MCHC RDW Plt Count MPV Prelim Diff (Auto) Neut % (Auto) Lymph % (Auto) [place] % (Auto) Eos % (Auto) Baso % (Auto) Neut # (Auto) Lymph # (Auto) [place] # (Auto) Eos # (Auto) Baso # (Auto) WBC Differential Diff Scan Seg Neuts % (Manual) Band Neuts % (Manual) Lymphocytes % (Manual) Monocytes % (Manual) Abs Neuts (Manual) Differential Comment Toxic Granulation Platelet Estimate Platelet Morphology Stomatocytes Sodium 141 Potassium 4.7 D Chloride 105 Carbon Dioxide 21.5 Anion Gap 15 BUN 68 H Creatinine 4.67 H Estimated GFR 13 L POC Glucose 219 H 233 H Random Glucose 238 H D Calcium 6.7 L* Prot Corrected Calcium 7.4 L* Total Bilirubin 6.9 H AST 45 H ALT 23 Alkaline Phosphatase 182 H Total Protein 5.7 L Albumin 1.6 L Anti-Smooth Muscle Ab Blood Type Antibody Screen MTS Gel Crossmatch Bld Prod Order Comment 02/12/18 02/13/18 02/13/18 18:22 01:39 04:35 WBC 4.2 RBC 2.38 L Hgb 7.2 L Hct 21.7 L MCV 91.5 MCH 30.2 MCHC 32.9 RDW 18.4 H Plt Count 110 L D MPV 9.7 Prelim Diff (Auto) Neut % (Auto) 86.1 H Lymph % (Auto) 5.6 L [place] % (Auto) 7.1 Eos % (Auto) 0.3 Baso % (Auto) 0.9 Neut # (Auto) 3.6 Lymph # (Auto) 0.2 L [place] # (Auto) 0.3 Eos # (Auto) 0.0 Baso # (Auto) 0.0 WBC Differential . Diff Scan Seg Neuts % (Manual) Band Neuts % (Manual) Lymphocytes % (Manual) Monocytes % (Manual) Abs Neuts (Manual) Differential Comment Auto diff final Toxic Granulation Platelet Estimate Platelet Morphology Stomatocytes Sodium Potassium Chloride Carbon Dioxide Anion Gap BUN Creatinine Estimated GFR POC Glucose 227 H 312 H Random Glucose Calcium Prot Corrected Calcium Total Bilirubin AST ALT Alkaline Phosphatase Total Protein Albumin Anti-Smooth Muscle Ab Blood Type Antibody Screen MTS Gel Crossmatch Bld Prod Order Comment 02/13/18 02/13/18 02/13/18 04:35 05:34 11:44 WBC RBC Hgb Hct MCV MCH MCHC RDW Plt Count MPV Prelim Diff (Auto) Neut % (Auto) Lymph % (Auto) [place] % (Auto) Eos % (Auto) Baso % (Auto) Neut # (Auto) Lymph # (Auto) [place] # (Auto) Eos # (Auto) Baso # (Auto) WBC Differential Diff Scan Seg Neuts % (Manual) Band Neuts % (Manual) Lymphocytes % (Manual) Monocytes % (Manual) Abs Neuts (Manual) Differential Comment Toxic Granulation Platelet Estimate Platelet Morphology Stomatocytes Sodium 144 Potassium 4.6 Chloride 107 Carbon Dioxide 19.4 L Anion Gap 18 H BUN 81 H Creatinine 5.69 H Estimated GFR 10 L POC Glucose 232 H 242 H Random Glucose 213 H Calcium 6.6 L* Prot Corrected Calcium 7.4 L* Total Bilirubin 5.6 H AST 49 H ALT 23 Alkaline Phosphatase 278 H Total Protein 5.5 L Albumin 1.3 L Anti-Smooth Muscle Ab Blood Type Antibody Screen MTS Gel Crossmatch Bld Prod Order Comment 02/13/18 02/14/18 02/14/18 17:29 00:30 04:10 WBC 4.3 RBC 2.30 L Hgb 7.1 L Hct 21.5 L MCV 93.6 MCH 30.8 MCHC 32.9 RDW 18.8 H Plt Count 139 L MPV 9.8 Prelim Diff (Auto) Neut % (Auto) 80.0 H Lymph % (Auto) 11.8 [place] % (Auto) 6.5 Eos % (Auto) 0.3 Baso % (Auto) 1.4 Neut # (Auto) 3.4 Lymph # (Auto) 0.5 L [place] # (Auto) 0.3 Eos # (Auto) 0.0 Baso # (Auto) 0.1 WBC Differential . Diff Scan Seg Neuts % (Manual) Band Neuts % (Manual) Lymphocytes % (Manual) Monocytes % (Manual) Abs Neuts (Manual) Differential Comment Auto diff final Toxic Granulation Platelet Estimate Platelet Morphology Stomatocytes Sodium Potassium Chloride Carbon Dioxide Anion Gap BUN Creatinine Estimated GFR POC Glucose 245 H 285 H Random Glucose Calcium Prot Corrected Calcium Total Bilirubin AST ALT Alkaline Phosphatase Total Protein Albumin Anti-Smooth Muscle Ab Blood Type Antibody Screen MTS Gel Crossmatch Bld Prod Order Comment 02/14/18 02/14/18 04:10 06:20 WBC RBC Hgb Hct MCV MCH MCHC RDW Plt Count MPV Prelim Diff (Auto) Neut % (Auto) Lymph % (Auto) [place] % (Auto) Eos % (Auto) Baso % (Auto) Neut # (Auto) Lymph # (Auto) [place] # (Auto) Eos # (Auto) Baso # (Auto) WBC Differential Diff Scan Seg Neuts % (Manual) Band Neuts % (Manual) Lymphocytes % (Manual) Monocytes % (Manual) Abs Neuts (Manual) Differential Comment Toxic Granulation Platelet Estimate Platelet Morphology Stomatocytes Sodium 142 Potassium 5.4 H D Chloride 106 Carbon Dioxide 16.9 L Anion Gap 19 H BUN 92 H Creatinine 6.40 H Estimated GFR 9 L POC Glucose 349 H Random Glucose 293 H Calcium 6.9 L* Prot Corrected Calcium 7.5 L Total Bilirubin 4.6 H AST 58 H ALT 25 Alkaline Phosphatase 377 H Total Protein 5.9 L Albumin 1.2 L Anti-Smooth Muscle Ab Blood Type Antibody Screen MTS Gel Crossmatch Bld Prod Order Comment Result Diagrams: 02/14/18 04:10 02/14/18 04:10 Microbiology: Microbiology 02/11/18 04:50 Aerobic Blood Culture - Preliminary Blood - Peripheral No growth in 2 days Anaerobic Blood Culture - Preliminary No growth in 2 days 02/11/18 04:57 Aerobic Blood Culture - Preliminary Blood - Peripheral No growth in 2 days Anaerobic Blood Culture - Preliminary No growth in 2 days 02/08/18 14:02 Aerobic Blood Culture - Final Blood - Peripheral Staphylococcus epidermidis Anaerobic Blood Culture - Final No growth in 5 days 02/08/18 13:55 Aerobic Blood Culture - Final Blood - Peripheral Staphylococcus epidermidis Anaerobic Blood Culture - Final No growth in 5 days 02/07/18 03:59 Aerobic Blood Culture - Final Blood - Peripheral Staphylococcus aureus Anaerobic Blood Culture - Final No growth in 5 days 02/06/18 10:59 Aerobic Blood Culture - Final Blood - Peripheral Staphylococcus aureus Anaerobic Blood Culture - Final No growth in 5 days Assessment and Plan - Disease Oriented Problem List (1) Acute renal failure (ARF) (2) Sepsis (3) Respiratory failure (4) Hypotension (5) Cholelithiasis - Symptom Scale (1) Pain 0-10 Scale: Unable to quantify (2) Anxiety 0-10 Scale: Unable to quantify Pertinent Non-Medical Issues: Psychosocial: Veteram. disablilty (back pain) and x 3. Have one son Ronald Forrester from 2nd marriage. Spiritual:shannon Legal:no known advacnce directive per bother. Ethical issues impacting care: Important Contacts: (Son/ health care proxy) [phone] (brother)Chris Forrester [phone] Prognosis: 57 year old hx of etoh abuse, came in with severe sepsis, tachycardia, respiratory failure. Pt continue to be in sepsis with pressor support, mechanically ventilated, on dialysis, encephalopathic, hepatic shock. Prognosis is guarded. Code Status: Alternative Code (no cpr/acls/shock) Plan: == capacity- does not have capacity to make medical decision. Critically ill, encephalopathic, multi-organ failure. I do not anticipate return to have capacity unless pt becomes non critical. There is a big potential that this may not happen. == health care decision maker: x 3, and x 3. Son from 2nd marriage Ronald Forrester is medical decision maker == code- DNR. Goals of care- I spoke with patient's son/ health care proxy. Pt would not want peg and trach. If he is not able to be medically extubated by around 14 days, he would be amenable to transition to comfort. If pt was able to be medically extubated, son do not feel patient would want to undergo another intubation. He is amenable to switch to a DNR/DNI symptom: pain- tachycardia, chronic back pain, found on the floor, hospitalize debility- fentanyl protocol placed anxiety- associated with dyspnea and discomfort. -no new med rec. == Palliative care will follow to make recommendation for symptom managment, and review goals of care as clinical conditions evolves. Attestation Attestation: To help prompt me to consider important information that might be impacting today's encounter and assessment, information from prior notes written by myself or my colleagues may have been "brought forward" into today's note. My signature on this note, however, is an attestation that I personally performed the exam, history, and/or decision-making noted today, and, unless otherwise indicated, the interactions with patient, family, and staff as well as the review of records all occurred today. I also attest that the listed assessment and stated plan reflect my best clinical judgment today based on the combination of historical information, prior notes, and today's exam/ interactions. When time spent is documented, it refers only to time spent today by the signer, or if indicated, combined time spent today by collaborating physician/nurse practitioner.
[2018-02-14] MEDS: Pantoprazole Inj 40 MG Vial IV.PUSH SCH (10:14)
[2018-02-14] MEDS: rifAXIMin 550 MG Tablet PO SCH ×2 (10:14→22:01)
[2018-02-14] MEDS: Chlorhexidine 0.12% Oral Kit 15 ML UDC OROPHARYNG SCH ×2 (10:16→22:00)
[2018-02-14] MEDS: Bisacodyl 10 MG Supp RECTAL SCH (10:17)
--- NOTE | 2018-02-14 10:54 | P.PNCC ---
Subjective Subjective Remarks/Hospital Course: 02/05: This is a 57-year-old male with a strong history of EtOH abuse, his family states that he drinks greater than a pint today times at least 25 years. He was found unresponsive at home this afternoon. The last time he was seen normal was 5 days ago. He was brought in by EMS and was severely altered. He was intubated for acute hypoxemia and hypercarbia. He was also in a supraventricular tachycardia with a heart rate greater than 200. In the emergency department he was electrically cardioverted 2 without success, and given 5 mill grams of IV Lopressor which caused severe hypotension, but did not resolve his tachycardia. Immediately upon being notified went down to the emergency department evaluated the patient and transported him up to the intensive care unit. Once in the intensive care unit, I placed arterial and central lines, see separate procedure note for details. I loaded the patient with 150 mg of amiodarone and 2 g magnesium. In addition, the patient has a blood gas with severe metabolic acidosis and a pH less than 7.2. I gave 4 A of sodium bicarbonate as well as 1 g of calcium chloride for severe hypocalcemia. After these interventions, the patient spontaneously converted to a sinus tachycardia. The patient was placed on norepinephrine for persistent hypotension and shock. The emergency department attempted to place a 16 Dutch Ennis catheter and was unsuccessful with this. I attempted an additional time to place both an 18 Dutch coud catheter as well as a 24 Dutch three-way catheter, both which were unsuccessful and met significant resistance at approximately 10-12 cm. I consulted urology and discussed the case with Dr. Worley who agrees to Place Ennis catheter tonight for emergent urine output monitoring while in shock. The patient remains altered no additional information is available from patient. ROS is unobtainable. 02/03 Patient is intubated on Levoped 5 mics, Amio and bicarb drips. 16Fr catheter was placed by Urology. 02/04 Patient remains intubated and sedated with Diprivan. Off Levophed on Neosyn 60mics. Right sided pig tail catheter placed yesterday with removal 1100ml cloudy fluid fluid analysis c/w empyema. Renal function declining with Cr: 5.87 and UOP 120ml in 12 hrs. Tmax 102.2 02/05: remains intubated and critically ill. on CVVHD. per RN, net -300/hr on CVVHD. off vasopressors this AM. 02/06: Remains sedated, orally intubated on mechanical ventilation. CRRT clotted off last night. Nephrology planning HD 02/07 Patient remains intubated and sedated with Fentanyl infusion. Off Neosyn remains on Vasopressin and Amio drip. T;102 last night. 02/08 No events overnight. Intubated and on Fentanyl infusion for sedation. Afebrile. Off all pressors. s/p HD yesterday. On Amio drip. 02/09 Patient remains sedated and intubated. For HD today. On Amio drip, T:101.3 last night. 02/10 No events overnight. Sedated with Diprivan and Fentanyl drips. Afebrile. For possible EMILY today. 02/11 Patient remains intubated and sedated. Tmax 100.1. MRCP yesterday no biliary obstruction. On Amio drip. 02/12 Patient remains intubated, now on Precedex drip, Off Diprivan and Fentanyl drip. Tmax:99.7 02/13 No events overnight. Off Diprivan and Fentanyl drips on Precedex drip 0.5. Afebrile. 02/14: Remains on 1.5 mcg/kg/hr of Precedex, No spontaneous eye opening, do not follow commands. Urology reconsulted for persistent retention Objective Vital Signs / I&O: Vital Signs 02/13/18 11:00 02/13/18 11:30 02/13/18 12:00 Temperature 100.1 F H Pulse Rate 70 69 71 Respiratory Rate 21 23 24 Blood Pressure 92/54 L 93/53 L 98/55 L Pulse Oximetry 95 95 96 02/13/18 12:08 02/13/18 12:30 02/13/18 13:00 Temperature Pulse Rate 72 71 Respiratory Rate 24 24 22 Blood Pressure 98/57 L 91/53 L Pulse Oximetry 96 96 96 02/13/18 13:30 02/13/18 14:00 02/13/18 14:30 Temperature Pulse Rate 71 70 70 Respiratory Rate 22 24 25 H Blood Pressure 92/53 L 100/58 L 99/60 L Pulse Oximetry 95 95 95 02/13/18 15:00 02/13/18 15:30 02/13/18 16:00 Temperature 99.6 F Pulse Rate 69 69 69 Respiratory Rate 24 33 H 20 Blood Pressure 97/53 L 97/64 L 100/60 Pulse Oximetry 95 94 L 100 02/13/18 16:59 02/13/18 17:00 02/13/18 18:00 Temperature Pulse Rate 69 70 Respiratory Rate 23 24 Blood Pressure Pulse Oximetry 96 02/13/18 20:00 02/13/18 21:57 02/13/18 22:00 Temperature 101.5 F H Pulse Rate 70 70 Respiratory Rate 23 24 23 Blood Pressure 106/56 L Pulse Oximetry 96 97 02/14/18 00:00 02/14/18 00:29 02/14/18 02:00 Temperature 100.6 F H Pulse Rate 69 69 Respiratory Rate 24 26 H Blood Pressure 112/60 Pulse Oximetry 97 96 02/14/18 04:00 02/14/18 04:35 02/14/18 06:00 Temperature 100.4 F H Pulse Rate 66 65 65 Respiratory Rate 24 22 Blood Pressure 104/59 L Pulse Oximetry 96 96 02/14/18 08:49 Temperature Pulse Rate 69 Respiratory Rate 25 H Blood Pressure Pulse Oximetry 96 Intake & Output 02/13/18 02/14/18 02/14/18 18:59 06:59 18:59 Intake Total 1517 / 1517 1356 / 1356 Output Total 627 / 627 25 / 25 Balance 890 / 890 1331 / 1331 Weight 113 kg Intake: IV 980 / 980 700 / 700 Maxipime Inj 2,000 MG In NS Inj 100 / 100 100 ML @ 200 mls/hr IV.SIG Q24H LEROY Rx#:[id number] Teflaro Inj 600 MG In NS Inj 200 / 200 100 / 100 100 ML @ 100 mls/hr IV.SIG Q8H LEROY Rx#:[id number] Precedex Inj 1,000 MCG In NS 250 / 250 500 / 500 Inj 240 ML @ 0.2 MCG/KG/HR 5.35 mls/hr IV.SIG TITRATE PRN Rx#: [id number] Prostaphlin Inj 2 GM In NS Inj 430 / 430 100 / 100 100 ML @ 200 mls/hr IV.SIG Q4H LEROY Rx#:[id number] Oral 0 / 0 Tube Feeding 487 / 487 456 / 456 Tube Irrigant 200 / 200 Water Bolus Amount 50 / 50 0 / 0 Output: Urine 0 / 0 Stool 600 / 600 0 / 0 Pleural Fluid 0 / 0 Hemodialysis Amount 0 / 0 Urine Amount (Catheter) 25 / Coude Gastric Drainage 0 / 0 Orogastric Tube 0 / 0 Chest Tube Drainage 2 / 2 0 / 0 #1 Right Anterior 2 / 2 0 / 0 Other: Date of Last Bowel Movement 02/13/18 02/14/18 # Bowel Movements 0 # Incontinent Bowel Movements 0 Result Diagrams: 02/14/18 04:10 02/14/18 04:10 Objective Remarks: GENERAL: Patient is 57 yo intubated and sedated with Precedex SKIN: Warm and dry. HEAD: Normocephalic. EYES: No scleral icterus. No injection or drainage. NECK: Supple, trachea midline. No JVD. CARDIOVASCULAR: Regular rate and rhythm. sinus. RESPIRATORY: Breath sounds equal bilaterally. No accessory muscle use. GASTROINTESTINAL: Abdomen soft, non-tender, nondistended. MUSCULOSKELETAL: No cyanosis, +2 edema. Neuro: Intubated, sedated,, did not follow commands Assessment and Plan - Assessment and Plan Plan: A/P Plan by systems: Neurologic: Acute metabolic encephalopathy Etoh abuse Likely secondary to EtOH abuse Monitor neuro status, on Thiamine/MVI/ On Precedex drip to facilitate with weaning trials. CT brain : No acute process on 02/02 EEG: Diffuse encephalopathy Respiratory: Acute hypoxic and hypercarbic respiratory failure Right sided empyema Continue with vent support keep sats >92% Bronchodilates, ICU vent bundle, SBT daily as marquez, mental status will not permit Family leaning against trach/PEG s/p right pigtail catheter placement 02/03, dislodged yesterday night Pleural fluid analysis c/w empyema, monitor CT drainage. CXR 02/10 unchanged in b/l pulm infiltrates Cardiovascular: Mixed hypovolemic and septic shock, resolved Atrial fibrillation with rapid ventricular response Monitor HR and BP keep MAP>65mmHg Cardizem 60mg QID, Status post 5 L crystalloid resuscitation in the emergency department Lactic acid is trending down Echo showed EF 60-65%, no RWMA s/p EMILY 02/10 : No vegetations, unremarkable Renal: Acute kidney injury-severe Acute rhabdomyolysis Obstructive uropathy BPH Monitor renal function, I/O's, avoid nephrotoxins, s/p HD 02/11 with removal 2.5L Urology is following- s/p 16Fr Ennis catheter placement, reconsulted due to obstruction Renal is following- Dr. Dinh. FEN/GI: Elevated LFT's with hyperbilirubinemia Acute protein calorie malnutrition: S KUB abdomen 02/11: Non specific bowel gas pattern, no def mechanical obstruction Tube feeds ( Nepro) @ 40ml/hr on hold Ammonia level <10 on 02/02 Hepatitis profile: Non reactive, GI is following MRCP 02/10: No biliary obstruction. Bowel regimen with Lactulose, Colace and Senna. Heme/ID: Coagulopathy, probably secondary to end-stage liver disease Thrombocytopenia, secondary to shock Leukopenia, secondary septic shock On Teflaro, Cefepime, Oxacillin per ID Monitor for signs of infections ( Fever, WBC) follow up on cultures on BC from 02/11 NGTD 02/08 BC coag negative staph bacteremia 02/02 Sputum cx: GNR 02/02 Urine cx: Staph Aureus 02/03 BC: GPC 08/12 bottles 02/03 Fluid cx: NGTD HIV ab: non reactive Monitor CBC, coags s/p transfusion 1u PRBC on 02/11 s/p transfusion 1u PLT pheresis 02/08 Endocrine: Hyperglycemia of critical illness -- SSI, TSH 1.6 Prophylaxis: GI Prophylaxis Protonix IV DVT Prophylaxis -- SCDs - Subcu heparin on hold for thrombocytopenia Palliative care is following Code status: Alternative code Lines: Right IJ vascath placed 02/08. Peripheral IV's Level 3
--- NOTE | 2018-02-14 11:21 | P.PNGI ---
Subjective Interval history: Pt sedated and orally intubated. Per RN, urology consult placed, obstruction and pt unable to void. <Cristal Jeronimo - Last Filed: 02/14/18 11:22> Physical Exam Vital signs: Vital Signs 02/13/18 11:30 02/13/18 12:00 02/13/18 12:08 Temperature 100.1 F H Pulse Rate 69 71 Respiratory Rate 23 24 24 Blood Pressure 93/53 L 98/55 L Pulse Oximetry 95 96 96 02/13/18 12:30 02/13/18 13:00 02/13/18 13:30 Temperature Pulse Rate 72 71 71 Respiratory Rate 24 22 22 Blood Pressure 98/57 L 91/53 L 92/53 L Pulse Oximetry 96 96 95 02/13/18 14:00 02/13/18 14:30 02/13/18 15:00 Temperature Pulse Rate 70 70 69 Respiratory Rate 24 25 H 24 Blood Pressure 100/58 L 99/60 L 97/53 L Pulse Oximetry 95 95 95 02/13/18 15:30 02/13/18 16:00 02/13/18 16:59 Temperature 99.6 F Pulse Rate 69 69 69 Respiratory Rate 33 H 20 23 Blood Pressure 97/64 L 100/60 Pulse Oximetry 94 L 100 02/13/18 17:00 02/13/18 18:00 02/13/18 20:00 Temperature 101.5 F H Pulse Rate 70 70 Respiratory Rate 24 23 Blood Pressure 106/56 L Pulse Oximetry 96 96 02/13/18 21:57 02/13/18 22:00 02/14/18 00:00 Temperature 100.6 F H Pulse Rate 70 69 Respiratory Rate 24 23 24 Blood Pressure 112/60 Pulse Oximetry 97 97 02/14/18 00:29 02/14/18 02:00 02/14/18 04:00 Temperature 100.4 F H Pulse Rate 69 66 Respiratory Rate 26 H 24 Blood Pressure 104/59 L Pulse Oximetry 96 96 02/14/18 04:35 02/14/18 06:00 02/14/18 08:00 Temperature 99.2 F Pulse Rate 65 65 68 Respiratory Rate 22 18 Blood Pressure 92/50 L Pulse Oximetry 96 97 02/14/18 08:49 Temperature Pulse Rate 69 Respiratory Rate 25 H Blood Pressure Pulse Oximetry 96 Intake & Output 0702/14/18 02/14/18 18:59 06:59 18:59 Intake Total 1517 / 1517 1356 / 1356 Output Total 627 / 627 25 / 25 Balance 890 / 890 1331 / 1331 Weight 113 kg Intake: IV 980 / 980 700 / 700 Maxipime Inj 2,000 MG In NS Inj 100 / 100 100 ML @ 200 mls/hr IV.SIG Q24H LEROY Rx#:[id number] Teflaro Inj 600 MG In NS Inj 200 / 200 100 / 100 100 ML @ 100 mls/hr IV.SIG Q8H LEROY Rx#:[id number] Precedex Inj 1,000 MCG In NS 250 / 250 500 / 500 Inj 240 ML @ 0.2 MCG/KG/HR 5.35 mls/hr IV.SIG TITRATE PRN Rx#: [id number] Prostaphlin Inj 2 GM In NS Inj 430 / 430 100 / 100 100 ML @ 200 mls/hr IV.SIG Q4H LEROY Rx#:[id number] Oral 0 / 0 Tube Feeding 487 / 487 456 / 456 Tube Irrigant 200 / 200 Water Bolus Amount 50 / 50 0 / 0 Output: Urine 25 / 25 0 / 0 Stool 600 / 600 0 / 0 Pleural Fluid 0 / 0 Hemodialysis Amount 0 / 0 Urine Amount (Catheter) 25 / 25 Coude 25 / 25 Gastric Drainage 0 / 0 Orogastric Tube 0 / 0 Chest Tube Drainage 2 / 2 0 / 0 #1 Right Anterior 2 / 2 0 / 0 Other: Date of Last Bowel Movement 02/13/18 02/14/18 02/14/18 # Bowel Movements 0 # Incontinent Bowel Movements 0 - Constitutional no acute distress - Routine HEENT Exam Head: Present: normocephalic, atraumatic Eye: Present: conjunctival icterus - Routine Respiratory Exam Present: patient mechanically ventilated - Routine Abdominal Exam Present: normoactive bowel sounds, distended, firm - Routine Skin Exam Present: jaundice - Urinary Catheter Management Coude Cath placed during this visit: yes Urethral indwelling: Yes Reason for continuing: Other continuation reason Insertion date: 02/02/18 <Cristal Jeronimo - Last Filed: 02/14/18 11:22> Vital signs: Vital Signs 02/13/18 16:00 02/13/18 16:59 02/13/18 17:00 Temperature 99.6 F Pulse Rate 69 69 Respiratory Rate 20 23 24 Blood Pressure 100/60 Pulse Oximetry 100 96 02/13/18 18:00 02/13/18 20:00 02/13/18 21:57 Temperature 101.5 F H Pulse Rate 70 70 Respiratory Rate 23 24 Blood Pressure 106/56 L Pulse Oximetry 96 97 02/13/18 22:00 02/14/18 00:00 02/14/18 00:29 Temperature 100.6 F H Pulse Rate 70 69 Respiratory Rate 23 24 26 H Blood Pressure 112/60 Pulse Oximetry 97 96 02/14/18 02:00 02/14/18 04:00 02/14/18 04:35 Temperature 100.4 F H Pulse Rate 69 66 65 Respiratory Rate 24 22 Blood Pressure 104/59 L Pulse Oximetry 96 96 02/14/18 06:00 02/14/18 08:00 02/14/18 08:49 Temperature 99.2 F Pulse Rate 65 68 69 Respiratory Rate 18 25 H Blood Pressure 92/50 L Pulse Oximetry 97 96 02/14/18 10:00 02/14/18 11:38 02/14/18 12:00 Temperature 99.1 F Pulse Rate 68 61 Respiratory Rate 18 18 Blood Pressure 96/54 L Pulse Oximetry 97 02/14/18 14:45 Temperature 98.3 F Pulse Rate 61 Respiratory Rate 20 Blood Pressure 96/54 L Pulse Oximetry Intake & Output 02/13/18 02/14/18 02/14/18 18:59 06:59 18:59 Intake Total 1517 / 1517 1356 / 1356 350 / 350 Output Total 627 / 627 25 / 25 Balance 890 / 890 1331 / 1331 350 / 350 Weight 113 kg Intake: IV 980 / 980 700 / 700 350 / 350 Maxipime Inj 2,000 MG In NS Inj 100 / 100 100 ML @ 200 mls/hr IV.SIG Q24H LEROY Rx#:[id number] Teflaro Inj 600 MG In NS Inj 200 / 200 100 / 100 100 ML @ 100 mls/hr IV.SIG Q8H LEROY Rx#:[id number] Precedex Inj 1,000 MCG In NS 250 / 250 500 / 500 250 / 250 Inj 240 ML @ 0.2 MCG/KG/HR 5.35 mls/hr IV.SIG TITRATE PRN Rx#: [id number] Prostaphlin Inj 2 GM In NS Inj 430 / 430 100 / 100 100 / 100 100 ML @ 200 mls/hr IV.SIG Q4H LEROY Rx#:[id number] Oral 0 / 0 Tube Feeding 487 / 487 456 / 456 Tube Irrigant 200 / 200 Water Bolus Amount 50 / 50 0 / 0 Intake (Blood Product) Amt 0 / 0 Rbc As-3 Leukoreduced Unit 0 / 0 [id number] Output: Urine 25 / 25 0 / 0 Stool 600 / 600 0 / 0 Pleural Fluid 0 / 0 Hemodialysis Amount 0 / 0 Urine Amount (Catheter) 25 / 25 Coude 25 / 25 Gastric Drainage 0 / 0 Orogastric Tube 0 / 0 Chest Tube Drainage 2 / 2 0 / 0 #1 Right Anterior 2 / 2 0 / 0 Other: Date of Last Bowel Movement 02/13/18 02/14/18 02/14/18 # Bowel Movements 0 # Incontinent Bowel Movements 0 - Urinary Catheter Management Coude Cath placed during this visit: no <Evelyn Chapin - Last Filed: 02/14/18 15:32> Results - Labs CBC & Chem 7: 02/14/18 04:10 02/14/18 04:10 Laboratory Results - last 24 hr 02/13/18 02/13/18 02/14/18 11:44 17:29 00:30 WBC RBC Hgb Hct MCV MCH MCHC RDW Plt Count MPV Neut % (Auto) Lymph % (Auto) [place] % (Auto) Eos % (Auto) Baso % (Auto) Neut # (Auto) Lymph # (Auto) [place] # (Auto) Eos # (Auto) Baso # (Auto) WBC Differential Differential Comment Sodium Potassium Chloride Carbon Dioxide Anion Gap BUN Creatinine Estimated GFR POC Glucose 242 H 245 H 285 H Random Glucose Calcium Prot Corrected Calcium Total Bilirubin AST ALT Alkaline Phosphatase Total Protein Albumin 02/14/18 02/14/18 02/14/18 04:10 04:10 06:20 WBC 4.3 RBC 2.30 L Hgb 7.1 L Hct 21.5 L MCV 93.6 MCH 30.8 MCHC 32.9 RDW 18.8 H Plt Count 139 L MPV 9.8 Neut % (Auto) 80.0 H Lymph % (Auto) 11.8 [place] % (Auto) 6.5 Eos % (Auto) 0.3 Baso % (Auto) 1.4 Neut # (Auto) 3.4 Lymph # (Auto) 0.5 L [place] # (Auto) 0.3 Eos # (Auto) 0.0 Baso # (Auto) 0.1 WBC Differential . Differential Comment Auto diff final Sodium 142 Potassium 5.4 H D Chloride 106 Carbon Dioxide 16.9 L Anion Gap 19 H BUN 92 H Creatinine 6.40 H Estimated GFR 9 L POC Glucose 349 H Random Glucose 293 H Calcium 6.9 L* Prot Corrected Calcium 7.5 L Total Bilirubin 4.6 H AST 58 H ALT 25 Alkaline Phosphatase 377 H Total Protein 5.9 L Albumin 1.2 L Microbiology 02/11/18 04:50 Blood - Peripheral Aerobic Blood Culture - Preliminary No growth in 3 days 02/11/18 04:50 Blood - Peripheral Anaerobic Blood Culture - Preliminary No growth in 3 days 02/11/18 04:57 Blood - Peripheral Aerobic Blood Culture - Preliminary No growth in 3 days 02/11/18 04:57 Blood - Peripheral Anaerobic Blood Culture - Preliminary No growth in 3 days 02/08/18 14:02 Blood - Peripheral Aerobic Blood Culture - Final Staphylococcus epidermidis 02/08/18 14:02 Blood - Peripheral Anaerobic Blood Culture - Final No growth in 5 days 02/08/18 13:55 Blood - Peripheral Aerobic Blood Culture - Final Staphylococcus epidermidis 02/08/18 13:55 Blood - Peripheral Anaerobic Blood Culture - Final No growth in 5 days - Imaging Impressions Chest X-Ray 02/13/18 22:08 CONCLUSION: Support apparatus unchanged. Stable basilar airspace disease and pleural effusions. Chest X-Ray 02/14/18 06:00 CONCLUSION: 1. No significant interval change. 2. Stable tubes and lines. 3. Stable bilateral pleural effusions and associated lower lobe airspace disease. <Cristal Jeronimo - Last Filed: 02/14/18 11:22> - Labs CBC & Chem 7: 02/14/18 11:45 02/14/18 04:10 Laboratory Results - last 24 hr 02/11/18 02/13/18 02/14/18 15:17 17:29 00:30 WBC RBC Hgb Hct MCV MCH MCHC RDW Plt Count MPV Neut % (Auto) Lymph % (Auto) [place] % (Auto) Eos % (Auto) Baso % (Auto) Neut # (Auto) Lymph # (Auto) [place] # (Auto) Eos # (Auto) Baso # (Auto) WBC Differential Differential Comment PT INR APTT Sodium Potassium Chloride Carbon Dioxide Anion Gap BUN Creatinine Estimated GFR POC Glucose 245 H 285 H Random Glucose Calcium Prot Corrected Calcium Total Bilirubin AST ALT Alkaline Phosphatase Lactate Dehydrogenase Total Protein Albumin Blood Type Antibody Screen MTS Gel Crossmatch See Detail 02/14/18 02/14/18 02/14/18 04:10 04:10 06:20 WBC 4.3 RBC 2.30 L Hgb 7.1 L Hct 21.5 L MCV 93.6 MCH 30.8 MCHC 32.9 RDW 18.8 H Plt Count 139 L MPV 9.8 Neut % (Auto) 80.0 H Lymph % (Auto) 11.8 [place] % (Auto) 6.5 Eos % (Auto) 0.3 Baso % (Auto) 1.4 Neut # (Auto) 3.4 Lymph # (Auto) 0.5 L [place] # (Auto) 0.3 Eos # (Auto) 0.0 Baso # (Auto) 0.1 WBC Differential . Differential Comment Auto diff final PT INR APTT Sodium 142 Potassium 5.4 H D Chloride 106 Carbon Dioxide 16.9 L Anion Gap 19 H BUN 92 H Creatinine 6.40 H Estimated GFR 9 L POC Glucose 349 H Random Glucose 293 H Calcium 6.9 L* Prot Corrected Calcium 7.5 L Total Bilirubin 4.6 H AST 58 H ALT 25 Alkaline Phosphatase 377 H Lactate Dehydrogenase Total Protein 5.9 L Albumin 1.2 L Blood Type Antibody Screen MTS Gel Crossmatch 02/14/18 02/14/18 02/14/18 11:45 11:45 11:45 WBC 3.7 L RBC 2.14 L Hgb 6.6 L* Hct 19.9 L* MCV 92.7 MCH 30.9 MCHC 33.3 RDW 19.0 H Plt Count 128 L MPV 9.8 Neut % (Auto) Lymph % (Auto) [place] % (Auto) Eos % (Auto) Baso % (Auto) Neut # (Auto) Lymph # (Auto) [place] # (Auto) Eos # (Auto) Baso # (Auto) WBC Differential Differential Comment PT 11.5 INR 1.1 APTT 28.0 Sodium Potassium Chloride Carbon Dioxide Anion Gap BUN Creatinine Estimated GFR POC Glucose Random Glucose Calcium Prot Corrected Calcium Total Bilirubin AST ALT Alkaline Phosphatase Lactate Dehydrogenase 451 H Total Protein 5.9 L Albumin Blood Type Antibody Screen MTS Gel Crossmatch 02/14/18 02/14/18 12:20 13:00 WBC RBC Hgb Hct MCV MCH MCHC RDW Plt Count MPV Neut % (Auto) Lymph % (Auto) [place] % (Auto) Eos % (Auto) Baso % (Auto) Neut # (Auto) Lymph # (Auto) [place] # (Auto) Eos # (Auto) Baso # (Auto) WBC Differential Differential Comment PT INR APTT Sodium Potassium Chloride Carbon Dioxide Anion Gap BUN Creatinine Estimated GFR POC Glucose 333 H Random Glucose Calcium Prot Corrected Calcium Total Bilirubin AST ALT Alkaline Phosphatase Lactate Dehydrogenase Total Protein Albumin Blood Type O Positive Antibody Screen Negative MTS Gel Crossmatch See Detail Microbiology 02/11/18 04:50 Blood - Peripheral Aerobic Blood Culture - Preliminary No growth in 3 days 02/11/18 04:50 Blood - Peripheral Anaerobic Blood Culture - Preliminary No growth in 3 days 02/11/18 04:57 Blood - Peripheral Aerobic Blood Culture - Preliminary No growth in 3 days 02/11/18 04:57 Blood - Peripheral Anaerobic Blood Culture - Preliminary No growth in 3 days - Imaging Impressions Chest X-Ray 02/13/18 22:08 CONCLUSION: Support apparatus unchanged. Stable basilar airspace disease and pleural effusions. Abdomen Ultrasound 02/14/18 00:00 CONCLUSION: 1. Small volume ascites Chest X-Ray 02/14/18 06:00 CONCLUSION: 1. No significant interval change. 2. Stable tubes and lines. 3. Stable bilateral pleural effusions and associated lower lobe airspace disease. <Evelyn Chapin - Last Filed: 02/14/18 15:32> Assessment and Plan (1) Anemia Status: Acute Code(s): D64.9 - Anemia, unspecified (2) Leukocytosis Status: Acute Code(s): D72.829 - Elevated white blood cell count, unspecified (3) Cholelithiasis Status: Acute Code(s): K80.20 - Calculus of gallbladder without cholecystitis without obstruction - Plan Assessment: - Elevated LFTs likely secondary to shocked liver in background of ETOH abuse LFTs from ER visit 01/26 AST-99 ALT-46 Alk phos-108 T bili-1.4 Returned on 02/02 AST-1685 ALT-307 Alk phos-66 T bili-1.7 Pt found unresponsive at home with known history of ETOH abuse, on admission pt was in SVT with noted extreme hypotension and fish roe technician noted persistent hypotension and shock requiring Levo gtt. Unable to obtain history from pt because he is orally intubated, on sedation but awake. According to notes pt was drinking greater than a pint daily. Abdomen US (02/04) Prominent gallbladder with small stones and minimal gallbladder wall thickening. Patient is not tender over the gallbladder. Echogenic liver. Small right pleural effusion. CT abdomen and pelvis WO IV contrast (02/03) Moderate-sized right pleural effusion. Two calcifications in the expected region of the distal common bile duct or pancreatic head measuring 3 mm each. Bibasilar atelectasis and/or infiltrates which are slightly worse on the right than the left. Cardiomegaly. Left adrenal nodule measuring 2.6 x 2.3 cm consistent with probable adrenal adenoma or cyst. Small amount of ascites. Probable 2.3 cm right renal cyst. Liver Work up: Hepatitis panel negative. GARY negative. AAT-433 Ceruloplasmin-69 AFP-0.8 Iron-30 TIBC-126 %Sat-23.8 Ferritin-2246 MRCP --> No evidence of biliary obstruction - Thrombocytopenia- secondary to liver disease - Hypoalbuminemia- albumin 1.5 - pt on replacement - ANIBAL, rhabdomyolysis, obstructive uropathy, BPH- Pt on HD- nephorlogy following - Anemia, probable acute on chronic but need to rule out any source of bleeding when patient is stable (02/14) Pt remains intubated and sedated. Per RN, urology consult placed, obstruction and pt is unable to void. LFTs trending down. Abdomen distended and firm- will order US for possible paracentesis Plan US and paracentesis if fluid Albumin replacement Xifaxan Diet, tube feeds Bowel regimen as needed, Needs alcohol abstinence Supportive care Further recommendations based on clinical course and results of above Patient has been seen and examined by myself and Dr. Chapin and this note is written on her behalf <Cristal Jeronimo - Last Filed: 02/14/18 11:22> (1) Anemia Status: Acute Code(s): D64.9 - Anemia, unspecified (2) Leukocytosis Status: Acute Code(s): D72.829 - Elevated white blood cell count, unspecified (3) Cholelithiasis Status: Acute Code(s): K80.20 - Calculus of gallbladder without cholecystitis without obstruction - Attending Attestation As above, critically ill with multiple comorbid conditions, for possible palliative care and comfort measures only. Limited input from GI point of view. <Evelyn Chapin - Last Filed: 02/14/18 15:32>
[2018-02-14 12:04] LABS: Mean Corpuscular HGB Conc 33.3 % (32.0-36.0); Mean Corpuscular Hemoglobin 30.9 pg (27.0-34.0); Mean Corpuscular Volume 92.7 fL (80.0-100.0); Mean Platelet Volume 9.8 fL (7.0-11.0); Platelet Count 128 th/mm3 (150-450); Red Blood Count 2.14 mil/mm3 (4.50-5.90); White Blood Count 3.7 th/mm3 (4.0-11.0)
[2018-02-14 12:07] LABS: Hematocrit 19.9 % (39.0-51.0); Hemoglobin 6.6 gm/dL (13.0-17.0)
[2018-02-14 12:15] LABS: INR 1.1 Ratio; Prothrombin Time 11.5 sec (9.8-11.6)
[2018-02-14 12:26] LABS: Total Protein 5.9 g/dL (6.4-8.2)
--- NOTE | 2018-02-14 12:42 | P.PNID ---
Subjective Remarks: ID COVERAGE Most of the history of optimal review of medical records. is a 57-year-old male with very strong current history of alcohol abuse. His brother and [id number] were in the room report that he drinks greater than a pint for at least 25 years. Patient is a resident of [place] and reportedly moved here to be close to his brother. [facility]. Patient's brother reports that they often go to patient's house for safety checks. The last time he was reportedly normal was 5 days prior to him coming to the hospital. When patient' s brother went to visit him on the day of admission patient was markedly obtunded and difficult to arouse and had some matting of his eyelids and brother called EMS reportedly. When patient was seen by EMS she was found to be significantly encephalopathic and there was a concern for airway protection and therefore he was intubated for acute hypoxemia and hypercarbia. Reportedly was also an SVT with a heart rate greater than 200. In the emergency department he was cardioverted and was hypotensive requiring pressors. Patient was admitted to the ICU under critical care team. Patient is currently on vasopressors Larry-Synephrine at 100 mics, he is also on a propofol drip for sedation. He is currently on a ventilator with AC 50% FiO2, PEEP of 5 not much respiratory secretions noted. He also has a right-sided chest tube which was placed when a large effusion was noted on the CT scan. Per description by RN there was a lot of yellow looking purulent material noted when the chest tube was placed. Urology has been consulted because [place] was difficult to be placed. Patient does not have much in terms of her urine output and is currently at 50 cc. GI is following patient as well. Sepsis workup was initiated on admission infectious diseases consulted for evaluation and management of septic shock secondary to possibly right-sided empyema. Overnight events reviewed with RN. Fevers overnight Tmax 101.5 F WBC 3.7, plts 127. Low H/H no overt bleeding. Secretions syed small to moderate. Off pressors. HD planned for today. No generalized rash No diarrhea. No BM. All lines changed recently. A line DCed. UO minimal, Bladder scan with 1 L urine per RN. Plan for cath change. troy RN to send new specimen from [facility] [place]. Antibiotics: Cefepime IV Oxacillin IV Teflaro IV Lines: Line sites ok Past Medical History: Diabetes Hypertension Significant EtOH history some shoulder surgery Allergies/Adverse Reactions: Allergies lisinopril Allergy (Severe, Verified 02/05/18 06:22) airway edema Sulfa (Sulfonamide Antibiotics) Allergy (Severe, Verified 02/05/18 06:22) Edema, Localized AIRWAY EDEMA Objective Vital Signs 02/13/18 13:00 02/13/18 13:30 02/13/18 14:00 Temperature Pulse Rate 71 71 70 Respiratory Rate 22 22 24 Blood Pressure 91/53 L 92/53 L 100/58 L Pulse Oximetry 96 95 95 02/13/18 14:30 02/13/18 15:00 02/13/18 15:30 Temperature Pulse Rate 70 69 69 Respiratory Rate 25 H 24 33 H Blood Pressure 99/60 L 97/53 L 97/64 L Pulse Oximetry 95 95 94 L 02/13/18 16:00 02/13/18 16:59 02/13/18 17:00 Temperature 99.6 F Pulse Rate 69 69 Respiratory Rate 20 23 24 Blood Pressure 100/60 Pulse Oximetry 100 96 02/13/18 18:00 02/13/18 20:00 02/13/18 21:57 Temperature 101.5 F H Pulse Rate 70 70 Respiratory Rate 23 24 Blood Pressure 106/56 L Pulse Oximetry 96 97 02/13/18 22:00 02/14/18 00:00 02/14/18 00:29 Temperature 100.6 F H Pulse Rate 70 69 Respiratory Rate 23 24 26 H Blood Pressure 112/60 Pulse Oximetry 97 96 02/14/18 02:00 02/14/18 04:00 02/14/18 04:35 Temperature 100.4 F H Pulse Rate 69 66 65 Respiratory Rate 24 22 Blood Pressure 104/59 L Pulse Oximetry 96 96 02/14/18 06:00 02/14/18 08:00 02/14/18 08:49 Temperature 99.2 F Pulse Rate 65 68 69 Respiratory Rate 18 25 H Blood Pressure 92/50 L Pulse Oximetry 97 96 02/14/18 10:00 02/14/18 11:38 Temperature Pulse Rate 68 Respiratory Rate 18 Blood Pressure Pulse Oximetry 97 Intake & Output 02/13/18 02/14/18 02/14/18 18:59 06:59 18:59 Intake Total 1517 / 1517 1356 / 1356 Output Total 627 / 627 25 / 25 Balance 890 / 890 1331 / 1331 Weight 113 kg Intake: IV 980 / 980 700 / 700 Maxipime Inj 2,000 MG In NS Inj 100 / 100 100 ML @ 200 mls/hr IV.SIG Q24H LEROY Rx#:[id number] Teflaro Inj 600 MG In NS Inj 200 / 200 100 / 100 100 ML @ 100 mls/hr IV.SIG Q8H LEROY Rx#:[id number] Precedex Inj 1,000 MCG In NS 250 / 250 500 / 500 Inj 240 ML @ 0.2 MCG/KG/HR 5.35 mls/hr IV.SIG TITRATE PRN Rx#: [id number] Prostaphlin Inj 2 GM In NS Inj 430 / 430 100 / 100 100 ML @ 200 mls/hr IV.SIG Q4H LEROY Rx#:[id number] Oral 0 / 0 Tube Feeding 487 / 487 456 / 456 Tube Irrigant 200 / 200 Water Bolus Amount 50 / 50 0 / 0 Output: Urine 25 / 25 0 / 0 Stool 600 / 600 0 / 0 Pleural Fluid 0 / 0 Hemodialysis Amount 0 / 0 Urine Amount (Catheter) 25 / 25 Coude 25 / 25 Gastric Drainage 0 / 0 Orogastric Tube 0 / 0 Chest Tube Drainage 2 / 2 0 / 0 #1 Right Anterior 2 / 2 0 / 0 Other: Date of Last Bowel Movement 02/13/18 02/14/18 02/14/18 # Bowel Movements 0 # Incontinent Bowel Movements 0 02/11/18 04:50 Blood - Peripheral Aerobic Blood Culture - Preliminary No growth in 3 days 02/11/18 04:50 Blood - Peripheral Anaerobic Blood Culture - Preliminary No growth in 3 days 02/11/18 04:57 Blood - Peripheral Aerobic Blood Culture - Preliminary No growth in 3 days 02/11/18 04:57 Blood - Peripheral Anaerobic Blood Culture - Preliminary No growth in 3 days 02/14/18 10:10 Blood - Peripheral Aerobic Blood Culture - Pending 02/14/18 10:10 Blood - Peripheral Anaerobic Blood Culture - Pending 02/14/18 10:20 Blood - Peripheral Aerobic Blood Culture - Pending 02/14/18 10:20 Blood - Peripheral Anaerobic Blood Culture - Pending 02/08/18 14:02 Blood - Peripheral Aerobic Blood Culture - Final Staphylococcus epidermidis 07/03/18 14:02 Blood - Peripheral Anaerobic Blood Culture - Final No growth in 5 days 02/08/18 13:55 Blood - Peripheral Aerobic Blood Culture - Final Staphylococcus epidermidis 02/08/18 13:55 Blood - Peripheral Anaerobic Blood Culture - Final No growth in 5 days 02/07/18 03:59 Blood - Peripheral Aerobic Blood Culture - Final Staphylococcus aureus 02/07/18 03:59 Blood - Peripheral Anaerobic Blood Culture - Final No growth in 5 days 02/06/18 10:59 Blood - Peripheral Aerobic Blood Culture - Final Staphylococcus aureus 02/06/18 10:59 Blood - Peripheral Anaerobic Blood Culture - Final No growth in 5 days Lab - Hematology Results 02/13/18 02/14/18 02/14/18 04:35 04:10 11:45 WBC 4.2 4.3 3.7 L RBC 2.38 L 2.30 L 2.14 L Hgb 7.2 L 7.1 L 6.6 L* Hct 21.7 L 21.5 L 19.9 L* MCV 91.5 93.6 92.7 MCH 30.2 30.8 30.9 MCHC 32.9 32.9 33.3 RDW 18.4 H 18.8 H 19.0 H Plt Count 110 L D 139 L 128 L MPV 9.7 9.8 9.8 Neut % (Auto) 86.1 H 80.0 H Lymph % (Auto) 5.6 L 11.8 [place] % (Auto) 7.1 6.5 Eos % (Auto) 0.3 0.3 Baso % (Auto) 0.9 1.4 Neut # (Auto) 3.6 3.4 Lymph # (Auto) 0.2 L 0.5 L [place] # (Auto) 0.3 0.3 Eos # (Auto) 0.0 0.0 Baso # (Auto) 0.0 0.1 WBC Differential . . Differential Comment Auto diff final Auto diff final Lab - Chemistry Results 02/12/18 02/12/18 02/13/18 13:06 18:22 01:39 Sodium Potassium Chloride Carbon Dioxide Anion Gap BUN Creatinine Estimated GFR POC Glucose 233 H 227 H 312 H Random Glucose Calcium Prot Corrected Calcium Total Bilirubin AST ALT Alkaline Phosphatase Lactate Dehydrogenase Total Protein Albumin 07/08/18 07/08/18 07/08/18 04:35 05:34 11:44 Sodium 144 Potassium 4.6 Chloride 107 Carbon Dioxide 19.4 L Anion Gap 18 H BUN 81 H Creatinine 5.69 H Estimated GFR 10 L POC Glucose 232 H 242 H Random Glucose 213 H Calcium 6.6 L* Prot Corrected Calcium 7.4 L* Total Bilirubin 5.6 H AST 49 H ALT 23 Alkaline Phosphatase 278 H Lactate Dehydrogenase Total Protein 5.5 L Albumin 1.3 L 02/13/18 02/14/18 02/14/18 17:29 00:30 04:10 Sodium 142 Potassium 5.4 H D Chloride 106 Carbon Dioxide 16.9 L Anion Gap 19 H BUN 92 H Creatinine 6.40 H Estimated GFR 9 L POC Glucose 245 H 285 H Random Glucose 293 H Calcium 6.9 L* Prot Corrected Calcium 7.5 L Total Bilirubin 4.6 H AST 58 H ALT 25 Alkaline Phosphatase 377 H Lactate Dehydrogenase Total Protein 5.9 L Albumin 1.2 L 02/14/18 02/14/18 02/14/18 06:20 11:45 12:20 Sodium Potassium Chloride Carbon Dioxide Anion Gap BUN Creatinine Estimated GFR POC Glucose 349 H 333 H Random Glucose Calcium Prot Corrected Calcium Total Bilirubin AST ALT Alkaline Phosphatase Lactate Dehydrogenase 451 H Total Protein 5.9 L Albumin Imaging: ITS Impressions Cholangiopancreatography MRI 02/10/18 00:00 CONCLUSION: No evidence of biliary obstruction Abdomen X-Ray 02/11/18 00:00 CONCLUSION: Nonspecific bowel gas pattern with some mildly dilated loops of colon. No definite mechanical obstruction is demonstrated. Chest X-Ray 02/14/18 06:00 CONCLUSION: 1. No significant interval change. 2. Stable tubes and lines. 3. Stable bilateral pleural effusions and associated lower lobe airspace disease. Physical Exam: GENERAL: Sedated, on the vent, NAD SKIN: Cool and dry, no generalized rash HEAD: Atraumatic. Normocephalic. No temporal or scalp tenderness. EYES: Pupils equal round and reactive. Scleral icterus. No injection or drainage. No petechia ENT: Orally intubated NECK: Trachea midline. Supple, nontender, no meningeal signs. CARDIOVASCULAR: HS audible. RESPIRATORY: AE decreased in the bases R>L. Right side CT with serous fluid noted GASTROINTESTINAL: Abdomen distended, some grimacing during palpation MUSCULOSKELETAL: Extremities without clubbing, cyanosis. Septic emboli to feet noted. Has a large hemorrhagic bullous lesion on L palm NEUROLOGICAL: Sedated Psych could not be assessed IV line sites ok. Assessment and Plan - Plan MSSA sepsis, Septic Shock, on pressors Right side Pulm Empyema, MSSA Rule out endocarditis. Polymicrobial PNA ( PSAE, second GNR, Staph aureus) also likely aspiration in setting of alcoholism Cardiomegaly: ? alcohol related vs CAD. MSSA in urine. Acute resp failure on vent Acute oliguric renal failure: prerenal, sepsis. - on CVVHD Acute metabolic encephalopathy: sepsis, metabolic. Leukocytosis Thrombocytopenia: sepsis, no DIC RECOMMENDATION Continue IV Oxacillin for MSSA Continue IV Cefepime for PSAE and E coli Continue Teflaro IV (as second MSSA agent pending clearance of bacteremia) Repeat blood cultures RN asked to send Sputum cultures. UA with reflex to culture from [place]. Has retention of urine. If fevers persist will get CT C/A/P to look for evidence of further dissemination. troy Robb he informs me patient would like to transition to comfort care in am per his discussion with palliative care. troy Tomlinson will hold off CT imaging as well as MRI spine (concern for epidural abscess due to retention of urine) EMILY negative. Follow cultures. Monitor progress D/W RN Prognosis guarded.
--- NOTE | 2018-02-14 14:11 | US ---
EXAM DATE: 02/14/2018 1:34 PM EDT AGE/SEX: 57 years / Male INDICATIONS: Ascites. CLINICAL DATA: This is the patient's initial encounter. Patient reports that signs and symptoms have been present for 1 day and indicates a pain score of Nonresponsive. MEDICAL/SURGICAL HISTORY: Diverticulitis. Diabetes. ETOH abuse. Depression. Back pain. None. COMPARISON: . FINDINGS: Masses: None Fluid Collections: Trace amount of ascites is present inadequate for tapping Other: None. CONCLUSION: 1. Small volume ascites Electronically signed by: Bacilio Sanchez MD 02/14/2018 2:09 PM EDT
--- NOTE | 2018-02-14 14:36 | P.PNCA ---
<Brianda Lyn N - Last Filed: 02/14/18 14:23> Subjective Interval history: Pt intubated and sedated. VSS. No cardiac events noted on tele. Physical Exam Vital signs: Vital Signs 02/13/18 14:30 02/13/18 15:00 02/13/18 15:30 Temperature Pulse Rate 70 69 69 Respiratory Rate 25 H 24 33 H Blood Pressure 99/60 L 97/53 L 97/64 L Pulse Oximetry 95 95 94 L 02/13/18 16:00 02/13/18 16:59 02/13/18 17:00 Temperature 99.6 F Pulse Rate 69 69 Respiratory Rate 20 23 24 Blood Pressure 100/60 Pulse Oximetry 100 96 02/13/18 18:00 02/13/18 20:00 02/13/18 21:57 Temperature 101.5 F H Pulse Rate 70 70 Respiratory Rate 23 24 Blood Pressure 106/56 L Pulse Oximetry 96 97 02/13/18 22:00 02/14/18 00:00 02/14/18 00:29 Temperature 100.6 F H Pulse Rate 70 69 Respiratory Rate 23 24 26 H Blood Pressure 112/60 Pulse Oximetry 97 96 02/14/18 02:00 02/14/18 04:00 02/14/18 04:35 Temperature 100.4 F H Pulse Rate 69 66 65 Respiratory Rate 24 22 Blood Pressure 104/59 L Pulse Oximetry 96 96 02/14/18 06:00 02/14/18 08:00 02/14/18 08:49 Temperature 99.2 F Pulse Rate 65 68 69 Respiratory Rate 18 25 H Blood Pressure 92/50 L Pulse Oximetry 97 96 02/14/18 10:00 02/14/18 11:38 02/14/18 12:00 Temperature Pulse Rate 68 68 Respiratory Rate 18 Blood Pressure Pulse Oximetry 97 Intake & Output 02/13/18 02/14/18 02/14/18 18:59 06:59 18:59 Intake Total 1517 / 1517 1356 / 1356 350 / 350 Output Total 627 / 627 25 / 25 Balance 890 / 890 1331 / 1331 350 / 350 Weight 113 kg Intake: IV 980 / 980 700 / 700 350 / 350 Maxipime Inj 2,000 MG In NS Inj 100 / 100 100 ML @ 200 mls/hr IV.SIG Q24H LEROY Rx#:[id number] Teflaro Inj 600 MG In NS Inj 200 / 200 100 / 100 100 ML @ 100 mls/hr IV.SIG Q8H LEROY Rx#:[id number] Precedex Inj 1,000 MCG In NS 250 / 250 500 / 500 250 / 250 Inj 240 ML @ 0.2 MCG/KG/HR 5.35 mls/hr IV.SIG TITRATE PRN Rx#: [id number] Prostaphlin Inj 2 GM In NS Inj 430 / 430 100 / 100 100 / 100 100 ML @ 200 mls/hr IV.SIG Q4H LEROY Rx#:[id number] Oral 0 / 0 Tube Feeding 487 / 487 456 / 456 Tube Irrigant 200 / 200 Water Bolus Amount 50 / 50 0 / 0 Output: Urine 25 / 25 0 / 0 Stool 600 / 600 0 / 0 Pleural Fluid 0 / 0 Hemodialysis Amount 0 / 0 Urine Amount (Catheter) 25 / 25 Coude 25 / 25 Gastric Drainage 0 / 0 Orogastric Tube 0 / 0 Chest Tube Drainage 2 / 2 0 / 0 #1 Right Anterior 2 / 2 0 / 0 Other: Date of Last Bowel Movement 02/13/18 02/14/18 02/14/18 # Bowel Movements 0 # Incontinent Bowel Movements 0 - Constitutional no acute distress - Routine Respiratory Exam Present: patient mechanically ventilated - Routine Cardiovascular Exam Present: RRR. Absent: murmur, gallop, rubs - Routine Abdominal Exam Present: soft - Routine Extremities Exam Present: edema, pulses intact, normal capillary refill Comments: 1 edema bilateral LE. - Routine Neurological Exam Sedated - Urinary Catheter Management Coude Cath placed during this visit: yes Urethral indwelling: Yes Reason for continuing: Other continuation reason Insertion date: 02/02/18 Assessment and Plan - Assessment (1) Encephalopathy Code(s): G93.40 - Encephalopathy, unspecified Status: Acute (2) Septic shock Code(s): A41.9 - Sepsis, unspecified organism; R65.21 - Severe sepsis with septic shock Status: Acute (3) Atrial flutter Code(s): I48.92 - Unspecified atrial flutter Status: Acute (4) ANIBAL (acute kidney injury) Code(s): N17.9 - Acute kidney failure, unspecified Status: Acute (5) Respiratory failure Code(s): J96.90 - Respiratory failure, unspecified, unspecified whether with hypoxia or hypercapnia Status: Acute - Plan No cardiac events noted per tele. Rhythm stable. Continue abxs as per ID. Pt intubated, wean vent as tolerated. Continue with current cardiac treatment plan. The patient was seen and evaluated by Dr. Delcid who participated in care, management and decision making. <Kellen Delcid - Last Filed: 02/14/18 14:41> Physical Exam Vital signs: Vital Signs 02/13/18 15:00 02/13/18 15:30 02/13/18 16:00 Temperature 99.6 F Pulse Rate 69 69 69 Respiratory Rate 24 33 H 20 Blood Pressure 97/53 L 97/64 L 100/60 Pulse Oximetry 95 94 L 100 02/13/18 16:59 02/13/18 17:00 02/13/18 18:00 Temperature Pulse Rate 69 70 Respiratory Rate 23 24 Blood Pressure Pulse Oximetry 96 02/13/18 20:00 02/13/18 21:57 02/13/18 22:00 Temperature 101.5 F H Pulse Rate 70 70 Respiratory Rate 23 24 23 Blood Pressure 106/56 L Pulse Oximetry 96 97 02/14/18 00:00 02/14/18 00:29 02/14/18 02:00 Temperature 100.6 F H Pulse Rate 69 69 Respiratory Rate 24 26 H Blood Pressure 112/60 Pulse Oximetry 97 96 02/14/18 04:00 02/14/18 04:35 02/14/18 06:00 Temperature 100.4 F H Pulse Rate 66 65 65 Respiratory Rate 24 22 Blood Pressure 104/59 L Pulse Oximetry 96 96 02/14/18 08:00 02/14/18 08:49 02/14/18 10:00 Temperature 99.2 F Pulse Rate 68 69 68 Respiratory Rate 18 25 H Blood Pressure 92/50 L Pulse Oximetry 97 96 02/14/18 11:38 02/14/18 12:00 Temperature 99.1 F Pulse Rate 61 Respiratory Rate 18 18 Blood Pressure 96/54 L Pulse Oximetry 97 Intake & Output 02/13/18 02/14/18 02/14/18 18:59 06:59 18:59 Intake Total 1517 / 1517 1356 / 1356 350 / 350 Output Total 627 / 627 25 / 25 Balance 890 / 890 1331 / 1331 350 / 350 Weight 249 lb 1.957 oz Intake: IV 980 / 980 700 / 700 350 / 350 Maxipime Inj 2,000 MG In NS Inj 100 / 100 100 ML @ 200 mls/hr IV.SIG Q24H LEROY Rx#:[id number] Teflaro Inj 600 MG In NS Inj 200 / 200 100 / 100 100 ML @ 100 mls/hr IV.SIG Q8H LEROY Rx#:[id number] Precedex Inj 1,000 MCG In NS 250 / 250 500 / 500 250 / 250 Inj 240 ML @ 0.2 MCG/KG/HR 5.35 mls/hr IV.SIG TITRATE PRN Rx#: [id number] Prostaphlin Inj 2 GM In NS Inj 430 / 430 100 / 100 100 / 100 100 ML @ 200 mls/hr IV.SIG Q4H LEROY Rx#:[id number] Oral 0 / 0 Tube Feeding 487 / 487 456 / 456 Tube Irrigant 200 / 200 Water Bolus Amount 50 / 50 0 / 0 Output: Urine 25 / 25 0 / 0 Stool 600 / 600 0 / 0 Pleural Fluid 0 / 0 Hemodialysis Amount 0 / 0 Urine Amount (Catheter) 25 / 25 Coude 25 / 25 Gastric Drainage 0 / 0 Orogastric Tube 0 / 0 Chest Tube Drainage 2 / 2 0 / 0 #1 Right Anterior 2 / 2 0 / 0 Other: Date of Last Bowel Movement 02/13/18 02/14/18 02/14/18 # Bowel Movements 0 # Incontinent Bowel Movements 0 - Urinary Catheter Management Coude Cath placed during this visit: no Assessment and Plan - Assessment (1) Encephalopathy Code(s): G93.40 - Encephalopathy, unspecified Status: Acute (2) Septic shock Code(s): A41.9 - Sepsis, unspecified organism; R65.21 - Severe sepsis with septic shock Status: Acute (3) Atrial flutter Code(s): I48.92 - Unspecified atrial flutter Status: Acute (4) ANIBAL (acute kidney injury) Code(s): N17.9 - Acute kidney failure, unspecified Status: Acute (5) Respiratory failure Code(s): J96.90 - Respiratory failure, unspecified, unspecified whether with hypoxia or hypercapnia Status: Acute - Attending Attestation Patient seen and examined. I reviewed and agree with the findings and plan presented. Continue current program.
--- NOTE | 2018-02-14 14:39 | P.PNURO ---
Subjective Patient symptoms today: Urology was asked to see pt today due to poor drainage from quezada catheter and 900cc of urine detected on bladder scan. Pt is intubated, on Dialysis. 30cc of bloody urine is in the bag. As per RN GI saw him too and nelly zimmerman did not show a lot of ascites. He does have large scrotal edema. Urology service saw him couple of weeks ago and he was diagnosed with BN contracture and had urethral dilation and 16Fr quezada cath placement with help of a wire. The plan for him will be a placement for palliative care in few days Procedure: Quezada balloon was deflated, quezada adjusted and manually with help of 60cc syringe bladder was drained (>900cc of urine and about 30cc of clots removed). Bladder was irrigated with 400cc of normal sline as well until urine became light red and clear. Then balloon was inflated with 10cc of water and bag was attached. Objective Vital Signs: Vital Signs 02/13/18 14:30 02/13/18 15:00 02/13/18 15:30 Temperature Pulse Rate 70 69 69 Respiratory Rate 25 H 24 33 H Blood Pressure 99/60 L 97/53 L 97/64 L Pulse Oximetry 95 95 94 L 02/13/18 16:00 02/13/18 16:59 02/13/18 17:00 Temperature 99.6 F Pulse Rate 69 69 Respiratory Rate 20 23 24 Blood Pressure 100/60 Pulse Oximetry 100 96 02/13/18 18:00 02/13/18 20:00 02/13/18 21:57 Temperature 101.5 F H Pulse Rate 70 70 Respiratory Rate 23 24 Blood Pressure 106/56 L Pulse Oximetry 96 97 02/13/18 22:00 02/14/18 00:00 02/14/18 00:29 Temperature 100.6 F H Pulse Rate 70 69 Respiratory Rate 23 24 26 H Blood Pressure 112/60 Pulse Oximetry 97 96 02/14/18 02:00 02/14/18 04:00 02/14/18 04:35 Temperature 100.4 F H Pulse Rate 69 66 65 Respiratory Rate 24 22 Blood Pressure 104/59 L Pulse Oximetry 96 96 02/14/18 06:00 02/14/18 08:00 02/14/18 08:49 Temperature 99.2 F Pulse Rate 65 68 69 Respiratory Rate 18 25 H Blood Pressure 92/50 L Pulse Oximetry 97 96 02/14/18 10:00 02/14/18 11:38 02/14/18 12:00 Temperature Pulse Rate 68 68 Respiratory Rate 18 Blood Pressure Pulse Oximetry 97 Intake & Output 02/13/18 02/14/18 02/14/18 18:59 06:59 18:59 Intake Total 1517 / 1517 1356 / 1356 350 / 350 Output Total 627 / 627 25 / 25 Balance 890 / 890 1331 / 1331 350 / 350 Weight 113 kg Intake: IV 980 / 980 700 / 700 350 / 350 Maxipime Inj 2,000 MG In NS Inj 100 / 100 100 ML @ 200 mls/hr IV.SIG Q24H GUNJAN Rx#:[id number] Teflaro Inj 600 MG In NS Inj 200 / 200 100 / 100 100 ML @ 100 mls/hr IV.SIG Q8H GUNJAN Rx#:[id number] Precedex Inj 1,000 MCG In NS 250 / 250 500 / 500 250 / 250 Inj 240 ML @ 0.2 MCG/KG/HR 5.35 mls/hr IV.SIG TITRATE PRN Rx#: [id number] Prostaphlin Inj 2 GM In NS Inj 430 / 430 100 / 100 100 / 100 100 ML @ 200 mls/hr IV.SIG Q4H GUNJAN Rx#:[id number] Oral 0 / 0 Tube Feeding 487 / 487 456 / 456 Tube Irrigant 200 / 200 Water Bolus Amount 50 / 50 0 / 0 Output: Urine 25 / 25 0 / 0 Stool 600 / 600 0 / 0 Pleural Fluid 0 / 0 Hemodialysis Amount 0 / 0 Urine Amount (Catheter) 25 / 25 Coude 25 / 25 Gastric Drainage 0 / 0 Orogastric Tube 0 / 0 Chest Tube Drainage 2 / 2 0 / 0 #1 Right Anterior 2 / 2 0 / 0 Other: Date of Last Bowel Movement 02/13/18 02/14/18 02/14/18 # Bowel Movements 0 # Incontinent Bowel Movements 0 Result Diagrams: 02/14/18 11:45 02/14/18 04:10 Imaging: Impressions Chest X-Ray 02/13/18 22:08 CONCLUSION: Support apparatus unchanged. Stable basilar airspace disease and pleural effusions. Abdomen Ultrasound 02/14/18 00:00 CONCLUSION: 1. Small volume ascites Chest X-Ray 02/14/18 06:00 CONCLUSION: 1. No significant interval change. 2. Stable tubes and lines. 3. Stable bilateral pleural effusions and associated lower lobe airspace disease. Medications and IVs: Active Medications Generic Name Dose Route Start Last Admin Trade Name Freq PRN Reason Stop Dose Admin Albuterol 1 ampul 02/06/18 00:00 02/10/18 09:15 Duoneb Neb (Prn) NEB 1 ampul Q2HR NEB PRN Administration WHEEZING Albuterol 1 ampul 02/10/18 16:00 02/14/18 08:48 Duoneb Neb (Gunjan) NEB 1 ampul Q6HR NEB GUNJAN Administration Bisacodyl 10 mg 02/12/18 09:00 02/14/18 10:17 Dulcolax Supp RECTAL Not Given DAILY GUNJAN Chlorhexidine Gluconate 15 ml 02/06/18 08:00 02/14/18 10:16 Peridex 0.12% Oral Kit OROPHARYNG 15 ml BID@0800,2000 [facility] Administration Chlorhexidine Gluconate 3 pack 02/06/18 00:00 Chlorhexidine 2% Cloth TOPICAL UNSCH PRN HYGIENIC CARE Clonidine HCl 0.1 mg 02/06/18 13:57 Catapres PO UNSCH PRN SEE LABEL COMMENTS Dextrose 50 ml 02/10/18 14:22 D50w Vial IV.PUSH UNSCH PRN PER HYPOGLYCEMIA PROTOCOL Diltiazem HCl 60 mg 02/10/18 18:00 02/13/18 08:10 Cardizem PO Not Given QID [facility] Gelatin 1 foam 02/06/18 13:57 Gelfoam 12 Mm/7 Mm Topical TOPICAL PRN PRN help stop bleeding from site Gentamicin Sulfate 20 mg 02/06/18 13:57 02/11/18 07:10 Gentamicin Inj OTHER 20 mg WITH DIALYSIS PRN Administration Dwell Gentamycin Lock Glucagon 1 mg 02/10/18 14:22 Glucagon Inj OTHER PRN PRN for Hypoglycemia Protocol Heparin Sodium (Porcine) 1,000 units 02/06/18 13:57 02/11/18 07:08 Heparin Inj OTHER 1,000 units WITH DIALYSIS PRN Administration Dwell Heparin to Fill Catheter Heparin Sodium (Porcine) 8,000 units 02/06/18 00:00 Heparin Inj IV.PUSH WITH DIALYSIS PRN WITH DIALYSIS Sodium Chloride 1,000 mls @ 0 mls/hr 02/06/18 13:57 Ns Inj IV.CONT .Q0M PRN hypotension / volume replace As Directed Sodium Chloride 1,000 mls @ 0 mls/hr 02/06/18 13:57 Ns Inj OTHER .Q0M PRN for prime and rinse back As Directed Oxacillin Sodium 2 gm/ Sodium 100 mls @ 200 mls/hr 02/06/18 18:00 02/14/18 13 :40 Chloride IV.SIG Infused Q4H GUNJAN Infusion Cefepime HCl 2,000 mg/ Sodium 100 mls @ 200 mls/hr 02/06/18 18:00 02/13/18 18 :08 Chloride IV.SIG Infused Q24H GUNJAN Infusion Albumin Human 100 mls @ 60 mls/hr 02/07/18 12:00 02/11/18 08:06 Flexbumin 25% Inj IV.SIG Infused WITH DIALYSIS GUNJAN Infusion Ceftaroline Fosamil 600 mg/ 100 mls @ 100 mls/hr 02/07/18 16:00 02/14/18 10: 15 Sodium Chloride IV.SIG 200 mls/hr Q8H GUNJAN Administration Dexmedetomidine HCl 1,000 mcg/ 250 mls @ 5.35 mls/hr 02/11/18 22:07 02/14/18 13:22 Sodium Chloride IV.SIG 1.5 mcg/kg/hr TITRATE PRN 40.12 mls/hr SEDATION Administration Protocol 0.2 MCG/KG/HR Micafungin Sodium 100 mg/ 100 mls @ 100 mls/hr 02/14/18 13:00 Sodium Chloride IV.SIG Q24H GUNJAN Sodium Chloride 1,000 mls @ 0 mls/hr 02/06/18 00:00 Ns Inj IV.SIG .Q0M PRN SEE LABEL COMMENTS As Directed Protamine Sulfate 25 mg/ 252.5 mls @ 5 mls/hr 02/06/18 00:00 Sodium Chloride IV.CONT TITRATE PRN HEPARINIZATION PROTOCOL Propofol 1,000 mg in 100 mls @ 2.85 mls/hr 02/06/18 00:00 02/11/18 15:00 Diprivan 1000 Mg/100 Ml Inj IV.CONT Infused TITRATE PRN Titration SEDATION Protocol 5 MCG/KG/MIN Heparin Sodium/Dextrose 25,000 unit in 250 mls @ 0 mls/hr 02/06/18 00:00 Heparin/D5w 25,000 U/250 Ml IV.CONT TITRATE PRN PROTOCOL Protocol Per Protocol Insulin Aspart 0 unit 02/10/18 18:00 02/14/18 13:06 Novolog Insulin Suppl Scale Inj SQ 10 unit Q6HR GUNJAN Administration Protocol Mannitol 12.5 gm 02/06/18 13:57 02/11/18 07:08 Mannitol Inj IV.PUSH 12.5 gm PRN PRN Administration hypotension / volume replace Miscellaneous Information 0 each 02/06/18 00:00 Misc Nursing Information OTHER UNSCH [facility] Miscellaneous Information 1 each 01/27/19 00:00 Misc Information OTHER Q361D [facility] Multivitamins 1 tab 02/06/18 09:00 02/14/18 10:13 Theragran PO 1 tab DAILY GUNJAN Administration Nitroglycerin 0.4 mg 02/06/18 13:57 Nitrostat Sl SL Q5M PRN CHEST PAIN Ondansetron HCl 4 mg 02/06/18 00:00 Zofran Odt PO Q6H PRN NAUSEA OR VOMITING Pantoprazole Sodium 40 mg 02/06/18 09:00 02/14/18 10:14 Protonix Inj IV.PUSH 40 mg DAILY GUNJAN Administration Rifaximin 550 mg 02/11/18 21:00 02/14/18 10:14 Xifaxan PO 550 mg Q12HR GUNJAN Administration Sodium Chloride 2 ml 02/06/18 00:00 02/14/18 10:14 Ns Flush IV.FLUSH 2 ml UNSCH PRN Administration FLUSH AFTER USING IV ACCESS Thiamine HCl 100 mg 02/06/18 09:00 02/14/18 10:13 Vitamin B1 PO 100 mg DAILY GUNJAN Administration Objective Remarks: Intubated RRR Quezada is in place Assessment and Plan - Plan Continue care and current management plan as per primary team No additional intervention needed Perform bladder scan 1-2 times a day and if retaining > 300cc RN can irrigate and drain urine manually with 60cc syringe Urology remains available as needed Discussed Condition With: Dr Clarke and Dr Worley attendings who also agree with this plan Also discussed management with RN
[2018-02-14 15:52] LABS: Copper, Serum 79 mcg/dL (70-175)
--- NOTE | 2018-02-14 16:22 | P.PNNP ---
Subjective Interval history: Patient seen during HD, intubated and sedated. Physical Exam Vital signs: Vital Signs 02/13/18 16:59 02/13/18 17:00 02/13/18 18:00 Temperature Pulse Rate 69 70 Respiratory Rate 23 24 Blood Pressure Pulse Oximetry 96 02/13/18 20:00 02/13/18 21:57 02/13/18 22:00 Temperature 101.5 F H Pulse Rate 70 70 Respiratory Rate 23 24 23 Blood Pressure 106/56 L Pulse Oximetry 96 97 02/14/18 00:00 02/14/18 00:29 02/14/18 02:00 Temperature 100.6 F H Pulse Rate 69 69 Respiratory Rate 24 26 H Blood Pressure 112/60 Pulse Oximetry 97 96 02/14/18 04:00 02/14/18 04:35 02/14/18 06:00 Temperature 100.4 F H Pulse Rate 66 65 65 Respiratory Rate 24 22 Blood Pressure 104/59 L Pulse Oximetry 96 96 02/14/18 08:00 02/14/18 08:49 02/14/18 10:00 Temperature 99.2 F Pulse Rate 68 69 68 Respiratory Rate 18 25 H Blood Pressure 92/50 L Pulse Oximetry 97 96 02/14/18 11:38 02/14/18 12:00 02/14/18 14:45 Temperature 99.1 F 98.3 F Pulse Rate 61 61 Respiratory Rate 18 18 20 Blood Pressure 96/54 L 96/54 L Pulse Oximetry 97 Intake & Output 02/13/18 02/14/18 02/14/18 18:59 06:59 18:59 Intake Total 1517 / 1517 1356 / 1356 350 / 350 Output Total 627 / 627 25 / 25 Balance 890 / 890 1331 / 1331 350 / 350 Weight 113 kg Intake: IV 980 / 980 700 / 700 350 / 350 Maxipime Inj 2,000 MG In NS Inj 100 / 100 100 ML @ 200 mls/hr IV.SIG Q24H LERO[facility] Rx#:[id number] Teflaro Inj 600 MG In NS Inj 200 / 200 100 / 100 100 ML @ 100 mls/hr IV.SIG Q8H LEROY Rx#:[id number] Precedex Inj 1,000 MCG In NS 250 / 250 500 / 500 250 / 250 Inj 240 ML @ 0.2 MCG/KG/HR 5.35 mls/hr IV.SIG TITRATE PRN Rx#: [id number] Prostaphlin Inj 2 GM In NS Inj 430 / 430 100 / 100 100 / 100 100 ML @ 200 mls/hr IV.SIG Q4H LEROY Rx#:[id number] Oral 0 / 0 Tube Feeding 487 / 487 456 / 456 Tube Irrigant 200 / 200 Water Bolus Amount 50 / 50 0 / 0 Intake (Blood Product) Amt 0 / 0 Rbc As-3 Leukoreduced Unit 0 / 0 [id number] Output: Urine 0 / 0 Stool 600 / 600 0 / 0 Pleural Fluid 0 / 0 Hemodialysis Amount 0 / 0 Urine Amount (Catheter) Coude Gastric Drainage 0 / 0 Orogastric Tube 0 / 0 Chest Tube Drainage 2 / 2 0 / 0 #1 Right Anterior 2 / 2 0 / 0 Other: Date of Last Bowel Movement 02/13/18 02/14/18 02/14/18 # Bowel Movements 0 # Incontinent Bowel Movements 0 - Constitutional obtunded - Routine HEENT Exam Head: Present: normocephalic - Routine Neck Exam Present: supple - Routine Respiratory Exam Present: patient mechanically ventilated, decreased breath sounds, rhonchi, distant breath sounds, diminished air movement - Routine Cardiovascular Exam Present: S1, S2, tachycardia - Routine Abdominal Exam Present: soft, normoactive bowel sounds, distended - Routine Extremities Exam Present: edema - Routine Neurological Exam Sedated. - Urinary Catheter Management Coude Cath placed during this visit: yes Urethral indwelling: Yes Reason for continuing: Other continuation reason Insertion date: 02/02/18 Assessment and Plan - Assessment (1) Acute renal failure (ARF) Code(s): N17.9 - Acute kidney failure, unspecified Status: Acute (2) Sepsis Code(s): A41.9 - Sepsis, unspecified organism Status: Acute (3) Respiratory failure Code(s): J96.90 - Respiratory failure, unspecified, unspecified whether with hypoxia or hypercapnia Status: Acute (4) Hypotension Code(s): I95.9 - Hypotension, unspecified Status: Acute Plan: Assessment Acute renal failure Anemia ICD Codes: N17.9 - Acute kidney failure, unspecified Plan: Patient has minimal UOP Initially on CRRT started on 02/04 for acute renal failure Vascath was removed, and re inserted. HD now, remove fluid as tolerated. Continue antibiotics. Watch for renal recovery. Respiratory failure Management per CC Anemia Respiratory failure Transfused Wednesday, HGb 7.2 today. may further transfuse with HD tomorrow if needed Sepsis ICD Codes: A41.9 - Sepsis, unspecified organism Plan: ID following EMILY negative, antibiotics per ID Rhabdomyolysis ICD Codes: M62.82 - Rhabdomyolysis Plan: Monitor CPK UTI (lower urinary tract infection) ICD Codes: N39.0 - Urinary tract infection, site not specified Plan: Patient has MSSA and ID is following Pneumonia ICD Codes: J18.9 - Pneumonia, unspecified organism Plan: Pleural effusion drained chest tube in place
[2018-02-14] MEDS: Heparin 10,000 UNITS/10 ML Vial (for IV use) OTHER PRN (16:31)
[2018-02-14] MEDS: Insulin Detemir Inj 1,000 UNIT/10 ML Vial SQ SCH (22:00)
[2018-02-15] MEDS: Insulin NovoLOG Aspart Correctional Sugar Inj SQ SCH ×4 (00:35→19:36)
[2018-02-15 01:48] LABS: Hematocrit 22.2 % (39.0-51.0); Hemoglobin 7.4 gm/dL (13.0-17.0); Mean Corpuscular HGB Conc 33.3 % (32.0-36.0); Mean Corpuscular Hemoglobin 30.5 pg (27.0-34.0); Mean Corpuscular Volume 91.5 fL (80.0-100.0); Mean Platelet Volume 9.6 fL (7.0-11.0); Platelet Count 133 th/mm3 (150-450); Red Blood Count 2.43 mil/mm3 (4.50-5.90); Red Cell Distribution Width 18.1 % (11.6-17.2); White Blood Count 3.4 th/mm3 (4.0-11.0)
[2018-02-15 01:58] LABS: Activated Partial Thrombo Time 27.9 sec (24.3-30.1); INR 1.1 Ratio; Prothrombin Time 11.4 sec (9.8-11.6)
[2018-02-15 03:30] LABS: Bacteria,Urine Many /hpf; Bilirubin,Urine Negative (Negative); Clarity,Urine Cloudy (Clear); Color,Urine Red (Yellw/Straw); Glucose,Urine (UA) 150 mg/dL (Negative); Leukocyte Esterase,Urine Negative (Negative); Nitrite,Urine Negative (Negative); Specific Gravity,Urine 1.018 (1.002-1.035)
[2018-02-15] MEDS: Dexmedetomidine Inj 1,000 MCG in Sodium Chlor 0.9% Inj 240 ML IV.SIG PRN (03:58)
--- NOTE | 2018-02-15 09:13 | P.PNID ---
Subjective Remarks: ID COVERAGE Most of the history of optimal review of medical records. is a 57-year-old male with very strong current history of alcohol abuse. His brother and [id number] were in the room report that he drinks greater than a pint for at least 25 years. Patient is a resident of [place] and reportedly moved here to be close to his brother. [facility]. Patient's brother reports that they often go to patient's house for safety checks. The last time he was reportedly normal was 5 days prior to him coming to the hospital. When patient' s brother went to visit him on the day of admission patient was markedly obtunded and difficult to arouse and had some matting of his eyelids and brother called EMS reportedly. When patient was seen by EMS she was found to be significantly encephalopathic and there was a concern for airway protection and therefore he was intubated for acute hypoxemia and hypercarbia. Reportedly was also an SVT with a heart rate greater than 200. In the emergency department he was cardioverted and was hypotensive requiring pressors. Patient was admitted to the ICU under critical care team. Patient is currently on vasopressors Larry-Synephrine at 100 mics, he is also on a propofol drip for sedation. He is currently on a ventilator with AC 50% FiO2, PEEP of 5 not much respiratory secretions noted. He also has a right-sided chest tube which was placed when a large effusion was noted on the CT scan. Per description by RN there was a lot of yellow looking purulent material noted when the chest tube was placed. Urology has been consulted because Quezada was difficult to be placed. Patient does not have much in terms of her urine output and is currently at 50 cc. GI is following patient as well. Sepsis workup was initiated on admission infectious diseases consulted for evaluation and management of septic shock secondary to possibly right-sided empyema. Overnight events reviewed with RN. No fevers Urology saw pt quezada flushed at 900 cc urine plus blood clots noted. Urine in quezada today blood tinged and 50 cc so far. UA sent. Secretions syed small to moderate. Sputum Cultures sent. On Precedex: opens eyes, ? tracks. Did not follow commands for me. Off pressors. No generalized rash No diarrhea. No BM. All lines changed recently. A line DCed. Antibiotics: Cefepime IV Oxacillin IV Teflaro IV MicafungiN IV Lines: Line sites ok Past Medical History: Diabetes Hypertension Significant EtOH history some shoulder surgery Allergies/Adverse Reactions: Allergies lisinopril Allergy (Severe, Verified 02/05/18 06:22) airway edema Sulfa (Sulfonamide Antibiotics) Allergy (Severe, Verified 02/05/18 06:22) Edema, Localized AIRWAY EDEMA Objective Vital Signs 02/14/18 10:00 02/14/18 11:38 02/14/18 12:00 Temperature 99.1 F Pulse Rate 68 61 Respiratory Rate 18 18 Blood Pressure 96/54 L Pulse Oximetry 97 02/14/18 14:45 02/14/18 16:00 02/14/18 17:50 Temperature 98.3 F 98.5 F Pulse Rate 61 66 66 Respiratory Rate 20 18 Blood Pressure 96/54 L 96/57 L Pulse Oximetry 99 02/14/18 17:57 02/14/18 18:02 02/14/18 19:00 Temperature Pulse Rate 63 67 Respiratory Rate 18 18 18 Blood Pressure 94/53 L Pulse Oximetry 96 02/14/18 20:00 02/14/18 21:00 02/14/18 21:21 Temperature 98.2 F Pulse Rate 67 63 63 Respiratory Rate 18 18 18 Blood Pressure 92/52 L 96/55 L Pulse Oximetry 94 L 94 L 99 02/14/18 22:00 02/14/18 23:00 02/15/18 00:00 Temperature 99.0 F Pulse Rate 67 68 67 Respiratory Rate 19 19 20 Blood Pressure 92/53 L 98/57 L 97/54 L Pulse Oximetry 94 L 95 94 L 02/15/18 01:00 02/15/18 02:00 02/15/18 02:19 Temperature Pulse Rate 69 67 Respiratory Rate 20 19 20 Blood Pressure 105/61 101/58 L Pulse Oximetry 96 96 97 02/15/18 03:00 02/15/18 04:00 02/15/18 05:00 Temperature 98.4 F Pulse Rate 67 66 65 Respiratory Rate 19 19 27 H Blood Pressure 101/58 L 94/52 L 95/56 L Pulse Oximetry 96 96 97 02/15/18 05:41 02/15/18 06:00 02/15/18 07:00 Temperature Pulse Rate 64 61 Respiratory Rate 21 20 18 Blood Pressure 101/61 107/60 Pulse Oximetry 98 98 97 02/15/18 07:55 02/15/18 08:00 Temperature 98.5 F Pulse Rate 62 Respiratory Rate 18 29 H Blood Pressure 107/60 Pulse Oximetry 97 Intake & Output 02/14/18 02/15/18 02/15/18 18:59 06:59 18:59 Intake Total 1306 / 1306 1691 / 1691 963 / 963 Output Total 600 / 600 Balance 1281 / 1281 1091 / 1091 963 / 963 Weight 111.5 kg Intake: IV 650 / 650 700 / 700 503 / 503 Maxipime Inj 2,000 MG In NS Inj 100 / 100 100 ML @ 200 mls/hr IV.SIG Q24H [facility] Rx#:[id number] Teflaro Inj 600 MG In NS Inj 200 / 200 100 / 100 100 ML @ 100 mls/hr IV.SIG Q8H [facility]ERO[facility] Rx#:[id number] Precedex Inj 1,000 MCG In NS 250 / 250 500 / 500 Inj 240 ML @ 0.2 MCG/KG/HR 5.35 mls/hr IV.SIG TITRATE PRN Rx#: [id number] Mycamine Inj 100 MG In NS Inj 100 / 100 100 ML @ 100 mls/hr IV.SIG Q24H [facility] Rx#:[id number] Prostaphlin Inj 2 GM In NS Inj 200 / 200 200 / 200 100 / 100 100 ML @ 200 mls/hr IV.SIG Q4H [facility]ERO[facility] Rx#:[id number] Oral 0 / 0 Tube Feeding 456 / 456 901 / 901 Tube Irrigant 200 / 200 30 / 30 Water Bolus Amount 0 / 0 Other 60 / 60 Rbc As-3 Leukoreduced Unit 60 / 60 [id number] Intake (Blood Product) Amt 0 / 0 400 / 400 Rbc As-3 Leukoreduced Unit 0 / 0 400 / 400 [id number] Bladder Irrigation Fluid - 60 / 60 Amount Retained Coude 60 / 60 Output: Urine 0 / 0 Stool 0 / 0 300 / 300 Pleural Fluid 0 / 0 Hemodialysis Amount 0 / 0 Urine Amount (Catheter) 25 / 25 300 / 300 Coude 25 / 25 300 / 300 Gastric Drainage 0 / 0 Orogastric Tube 0 / 0 Chest Tube Drainage 0 / 0 #1 Right Anterior 0 / 0 Other: Bladder Irrigation Fluid - Amount Instilled Coude 420 Bladder Irrigation Fluid - Amount Drained Coude 560 Other Intake Source Rbc As-3 Leukoreduced Unit Saline Solution [id number] Date of Last Bowel Movement 02/14/18 02/15/18 # Bowel Movements 0 # Incontinent Bowel Movements 0 Weight On Admission 113 kg 02/15/18 02:25 Catheterized Urine Urine Culture - Pending 02/14/18 11:44 Sputum - Endotracheal Gram Stain - Pending 02/14/18 11:44 Sputum - Endotracheal Sputum Culture - Pending 02/11/18 04:50 Blood - Peripheral Aerobic Blood Culture - Preliminary No growth in 3 days 02/11/18 04:50 Blood - Peripheral Anaerobic Blood Culture - Preliminary No growth in 3 days 02/11/18 04:57 Blood - Peripheral Aerobic Blood Culture - Preliminary No growth in 3 days 02/11/18 04:57 Blood - Peripheral Anaerobic Blood Culture - Preliminary No growth in 3 days 02/14/18 10:10 Blood - Peripheral Aerobic Blood Culture - Pending 02/14/18 10:10 Blood - Peripheral Anaerobic Blood Culture - Pending 02/14/18 10:20 Blood - Peripheral Aerobic Blood Culture - Pending 02/14/18 10:20 Blood - Peripheral Anaerobic Blood Culture - Pending 02/08/18 14:02 Blood - Peripheral Aerobic Blood Culture - Final Staphylococcus epidermidis 02/08/18 14:02 Blood - Peripheral Anaerobic Blood Culture - Final No growth in 5 days 02/08/18 13:55 Blood - Peripheral Aerobic Blood Culture - Final Staphylococcus epidermidis 02/08/18 13:55 Blood - Peripheral Anaerobic Blood Culture - Final No growth in 5 days 02/07/18 03:59 Blood - Peripheral Aerobic Blood Culture - Final Staphylococcus aureus 02/07/18 03:59 Blood - Peripheral Anaerobic Blood Culture - Final No growth in 5 days Lab - Hematology Results 02/14/18 02/14/18 02/15/18 04:10 11:45 01:30 WBC 4.3 3.7 L 3.4 L RBC 2.30 L 2.14 L 2.43 L Hgb 7.1 L 6.6 L* 7.4 L Hct 21.5 L 19.9 L* 22.2 L MCV 93.6 92.7 91.5 MCH 30.8 30.9 30.5 MCHC 32.9 33.3 33.3 RDW 18.8 H 19.0 H 18.1 H Plt Count 139 L 128 L 133 L MPV 9.8 9.8 9.6 Neut % (Auto) 80.0 H Lymph % (Auto) 11.8 [place] % (Auto) 6.5 Eos % (Auto) 0.3 Baso % (Auto) 1.4 Neut # (Auto) 3.4 Lymph # (Auto) 0.5 L [place] # (Auto) 0.3 Eos # (Auto) 0.0 Baso # (Auto) 0.1 WBC Differential . Differential Comment Auto diff final Lab - Chemistry Results 02/13/18 02/13/18 02/14/18 11:44 17:29 00:30 Sodium Potassium Chloride Carbon Dioxide Anion Gap BUN Creatinine Estimated GFR POC Glucose 242 H 245 H 285 H Random Glucose Calcium Prot Corrected Calcium Total Bilirubin AST ALT Alkaline Phosphatase Lactate Dehydrogenase Total Protein Albumin 02/14/18 02/14/18 02/14/18 04:10 06:20 11:45 Sodium 142 Potassium 5.4 H D Chloride 106 Carbon Dioxide 16.9 L Anion Gap 19 H BUN 92 H Creatinine 6.40 H Estimated GFR 9 L POC Glucose 349 H Random Glucose 293 H Calcium 6.9 L* Prot Corrected Calcium 7.5 L Total Bilirubin 4.6 H AST 58 H ALT 25 Alkaline Phosphatase 377 H Lactate Dehydrogenase 451 H Total Protein 5.9 L 5.9 L Albumin 1.2 L 02/14/18 02/14/18 02/14/18 12:20 17:30 21:37 Sodium Potassium Chloride Carbon Dioxide Anion Gap BUN Creatinine Estimated GFR POC Glucose 333 H 181 H 201 H Random Glucose Calcium Prot Corrected Calcium Total Bilirubin AST ALT Alkaline Phosphatase Lactate Dehydrogenase Total Protein Albumin 02/15/18 02/15/18 00:07 05:56 Sodium Potassium Chloride Carbon Dioxide Anion Gap BUN Creatinine Estimated GFR POC Glucose 285 H 137 H Random Glucose Calcium Prot Corrected Calcium Total Bilirubin AST ALT Alkaline Phosphatase Lactate Dehydrogenase Total Protein Albumin Imaging: ITS Impressions Cholangiopancreatography MRI 02/10/18 00:00 CONCLUSION: No evidence of biliary obstruction Abdomen X-Ray 02/11/18 00:00 CONCLUSION: Nonspecific bowel gas pattern with some mildly dilated loops of colon. No definite mechanical obstruction is demonstrated. Abdomen Ultrasound 02/14/18 00:00 CONCLUSION: 1. Small volume ascites Chest X-Ray 02/14/18 06:00 CONCLUSION: 1. No significant interval change. 2. Stable tubes and lines. 3. Stable bilateral pleural effusions and associated lower lobe airspace disease. Physical Exam: GENERAL: Sedated, on the vent, NAD SKIN: Cool and dry, no generalized rash HEAD: Atraumatic. Normocephalic. No temporal or scalp tenderness. EYES: Pupils equal round and reactive. Scleral icterus. No injection or drainage. No petechia ENT: Orally intubated NECK: Trachea midline. Supple, nontender, no meningeal signs. CARDIOVASCULAR: HS audible. RESPIRATORY: AE decreased in the bases R>L. Right side CT with serous fluid noted GASTROINTESTINAL: Abdomen distended, some grimacing during palpation MUSCULOSKELETAL: Extremities without clubbing, cyanosis. Septic emboli to feet noted. Has a large hemorrhagic bullous lesion on L palm NEUROLOGICAL: Opens eyes, ?tracks, did not follow commands for me. Moves extremities spontaneously sometimes. Psych could not be assessed IV line sites ok. Assessment and Plan - Plan MSSA sepsis, Septic Shock, on pressors Right side Pulm Empyema, MSSA Rule out endocarditis. Polymicrobial PNA ( PSAE, second GNR, Staph aureus) also likely aspiration in setting of alcoholism Cardiomegaly: ? alcohol related vs CAD. MSSA in urine. Acute resp failure on vent Acute oliguric renal failure: prerenal, sepsis. - on CVVHD Acute metabolic encephalopathy: sepsis, metabolic. Leukocytosis Thrombocytopenia: sepsis, no DIC RECOMMENDATION Continue IV Oxacillin for MSSA Continue IV Cefepime for PSAE and E coli Continue Teflaro IV (as second MSSA agent pending clearance of bacteremia) Continue Micafungin IV Follow repeat cultures If goals remain aggressive would like to get CT C/A/P to look for evidence of further dissemination. troy Robb he informs me patient would like to transition to comfort care possibly today per his discussion with palliative care. troy Tomlinson will hold off CT imaging as well as MRI spine (concern for epidural abscess due to retention of urine) EMILY negative. Follow cultures. Monitor progress D/W RN Prognosis guarded.
[2018-02-15] MEDS: Chlorhexidine 0.12% Oral Kit 15 ML UDC OROPHARYNG SCH ×2 (09:22→21:49)
[2018-02-15] MEDS: Bisacodyl 10 MG Supp RECTAL SCH (09:22)
[2018-02-15] MEDS: Pantoprazole Inj 40 MG Vial IV.PUSH SCH (09:23)
[2018-02-15] MEDS: Insulin Detemir Inj 1,000 UNIT/10 ML Vial SQ SCH ×2 (09:23→21:49)
[2018-02-15] MEDS: rifAXIMin 550 MG Tablet PO SCH ×2 (09:24→21:50)
--- NOTE | 2018-02-15 10:38 | P.PNCC ---
Subjective Subjective Remarks/Hospital Course: 02/05: This is a 57-year-old male with a strong history of EtOH abuse, his family states that he drinks greater than a pint today times at least 25 years. He was found unresponsive at home this afternoon. The last time he was seen normal was 5 days ago. He was brought in by EMS and was severely altered. He was intubated for acute hypoxemia and hypercarbia. He was also in a supraventricular tachycardia with a heart rate greater than 200. In the emergency department he was electrically cardioverted 2 without success, and given 5 mill grams of IV Lopressor which caused severe hypotension, but did not resolve his tachycardia. Immediately upon being notified went down to the emergency department evaluated the patient and transported him up to the intensive care unit. Once in the intensive care unit, I placed arterial and central lines, see separate procedure note for details. I loaded the patient with 150 mg of amiodarone and 2 g magnesium. In addition, the patient has a blood gas with severe metabolic acidosis and a pH less than 7.2. I gave 4 A of sodium bicarbonate as well as 1 g of calcium chloride for severe hypocalcemia. After these interventions, the patient spontaneously converted to a sinus tachycardia. The patient was placed on norepinephrine for persistent hypotension and shock. The emergency department attempted to place a 16 [place] Ennis catheter and was unsuccessful with this. I attempted an additional time to place both an 18 [place] coud catheter as well as a 24 [place] three-way catheter, both which were unsuccessful and met significant resistance at approximately 10-12 cm. I consulted urology and discussed the case with Dr. Worley who agrees to Place Ennis catheter tonight for emergent urine output monitoring while in shock. The patient remains altered no additional information is available from patient. ROS is unobtainable. 02/03 Patient is intubated on Levoped 5 mics, Amio and bicarb drips. 16Fr catheter was placed by Urology. 02/04 Patient remains intubated and sedated with Diprivan. Off Levophed on Neosyn 60mics. Right sided pig tail catheter placed yesterday with removal 1100ml cloudy fluid fluid analysis c/w empyema. Renal function declining with Cr: 5.87 and UOP 120ml in 12 hrs. Tmax 102.2 02/05: remains intubated and critically ill. on CVVHD. per RN, net -300/hr on CVVHD. off vasopressors this AM. 02/06: Remains sedated, orally intubated on mechanical ventilation. CRRT clotted off last night. Nephrology planning HD 02/07 Patient remains intubated and sedated with Fentanyl infusion. Off Neosyn remains on Vasopressin and Amio drip. T;102 last night. 02/08 No events overnight. Intubated and on Fentanyl infusion for sedation. Afebrile. Off all pressors. s/p HD yesterday. On Amio drip. 02/09 Patient remains sedated and intubated. For HD today. On Amio drip, T:101.3 last night. 02/10 No events overnight. Sedated with Diprivan and Fentanyl drips. Afebrile. For possible EMILY today. 02/11 Patient remains intubated and sedated. Tmax 100.1. MRCP yesterday no biliary obstruction. On Amio drip. 02/12 Patient remains intubated, now on Precedex drip, Off Diprivan and Fentanyl drip. Tmax:99.7 02/13 No events overnight. Off Diprivan and Fentanyl drips on Precedex drip 0.5. Afebrile. 02/14: Remains on 1.5 mcg/kg/hr of Precedex, No spontaneous eye opening, do not follow commands. Urology reconsulted for persistent retention 02/15: Remains critical. Currently on 7 mcg/kg/h of Precedex. Follows simple commands for the RN not reproducible to me. Urology reconsulted for retentions. Had HD yesterday. No fever in the last 24 hours. Currently on CPAP slightly tachypneic Objective Vital Signs / I&O: Vital Signs 02/14/18 11:38 02/14/18 12:00 02/14/18 14:45 Temperature 99.1 F 98.3 F Pulse Rate 61 61 Respiratory Rate 18 18 20 Blood Pressure 96/54 L 96/54 L Pulse Oximetry 97 02/14/18 16:00 02/14/18 17:50 02/14/18 17:57 Temperature 98.5 F Pulse Rate 66 66 63 Respiratory Rate 18 18 Blood Pressure 96/57 L Pulse Oximetry 99 02/14/18 18:02 02/14/18 19:00 02/14/18 20:00 Temperature 98.2 F Pulse Rate 67 67 Respiratory Rate 18 18 18 Blood Pressure 94/53 L 92/52 L Pulse Oximetry 96 94 L 02/14/18 21:00 02/14/18 21:21 02/14/18 22:00 Temperature Pulse Rate 63 63 67 Respiratory Rate 18 18 19 Blood Pressure 96/55 L 92/53 L Pulse Oximetry 94 L 99 94 L 02/14/18 23:00 02/15/18 00:00 02/15/18 01:00 Temperature 99.0 F Pulse Rate 68 67 69 Respiratory Rate 19 20 20 Blood Pressure 98/57 L 97/54 L 105/61 Pulse Oximetry 95 94 L 96 02/15/18 02:00 02/15/18 02:19 02/15/18 03:00 Temperature Pulse Rate 67 67 Respiratory Rate 19 20 19 Blood Pressure 101/58 L 101/58 L Pulse Oximetry 96 97 96 02/15/18 04:00 02/15/18 05:00 02/15/18 05:41 Temperature 98.4 F Pulse Rate 66 65 Respiratory Rate 19 27 H 21 Blood Pressure 94/52 L 95/56 L Pulse Oximetry 96 97 98 02/15/18 06:00 02/15/18 07:00 02/15/18 07:55 Temperature 98.5 F Pulse Rate 64 61 62 Respiratory Rate 20 18 18 Blood Pressure 101/61 107/60 107/60 Pulse Oximetry 98 97 02/15/18 08:00 Temperature Pulse Rate Respiratory Rate 29 H Blood Pressure Pulse Oximetry 97 Intake & Output 02/14/18 02/15/18 02/15/18 18:59 06:59 18:59 Intake Total 1306 / 1306 1691 / 1691 963 / 963 Output Total 25 / 25 600 / 600 Balance 1281 / 1281 1091 / 1091 963 / 963 Weight 111.5 kg Intake: IV 650 / 650 700 / 700 503 / 503 Maxipime Inj 2,000 MG In NS Inj 100 / 100 100 ML @ 200 mls/hr IV.SIG Q24H LEROY Rx#:[id number] Teflaro Inj 600 MG In NS Inj 200 / 200 100 / 100 100 ML @ 100 mls/hr IV.SIG Q8H LEROY Rx#:[id number] Precedex Inj 1,000 MCG In NS 250 / 250 500 / 500 Inj 240 ML @ 0.2 MCG/KG/HR 5.35 mls/hr IV.SIG TITRATE PRN Rx#: [id number] Mycamine Inj 100 MG In NS Inj 100 / 100 100 ML @ 100 mls/hr IV.SIG Q24H LEROY Rx#:[id number] Prostaphlin Inj 2 GM In NS Inj 200 / 200 200 / 200 100 / 100 100 ML @ 200 mls/hr IV.SIG Q4H LEROY Rx#:[id number] Oral 0 / 0 Tube Feeding 456 / 456 901 / 901 Tube Irrigant 200 / 200 30 / 30 Water Bolus Amount 0 / 0 Other 60 / 60 Rbc As-3 Leukoreduced Unit 60 / 60 [id number] Intake (Blood Product) Amt 0 / 0 400 / 400 Rbc As-3 Leukoreduced Unit 0 / 0 400 / 400 [id number] Bladder Irrigation Fluid - 60 / 60 Amount Retained Coude 60 / 60 Output: Urine 0 / 0 Stool 0 / 0 300 / 300 Pleural Fluid 0 / 0 Hemodialysis Amount 0 / 0 Urine Amount (Catheter) 25 / 25 300 / 300 Coude 25 / 25 300 / 300 Gastric Drainage 0 / 0 Orogastric Tube 0 / 0 Chest Tube Drainage 0 / 0 #1 Right Anterior 0 / 0 Other: Bladder Irrigation Fluid - Amount Instilled Coude 420 Bladder Irrigation Fluid - Amount Drained Coude 560 Other Intake Source Rbc As-3 Leukoreduced Unit Saline Solution [id number] Date of Last Bowel Movement 02/14/18 02/15/18 # Bowel Movements 0 # Incontinent Bowel Movements 0 Weight On Admission 113 kg Result Diagrams: 02/15/18 01:30 02/14/18 04:10 Objective Remarks: GENERAL: Patient is 57 yo intubated and sedated with Precedex SKIN: Warm and dry. HEAD: Normocephalic. EYES: No scleral icterus. No injection or drainage. NECK: Supple, trachea midline. No JVD. CARDIOVASCULAR: Regular rate and rhythm. sinus. RESPIRATORY: Breath sounds equal bilaterally. No accessory muscle use. GASTROINTESTINAL: Abdomen soft, non-tender, nondistended. Significant scrotal edema MUSCULOSKELETAL: No cyanosis, +2 edema. Neuro: Intubated, sedated, did not follow commands for me, but did follow simple commands for ham trimmer and Plan - Assessment and Plan Plan: A/P Plan by systems: Neurologic: Acute metabolic encephalopathy Etoh abuse Monitor neuro status, on Thiamine/MVI/ On Precedex drip to facilitate with weaning trials. Will DC. Avoid all continuous sedation CT brain : No acute process on 02/02 EEG: Diffuse encephalopathy Slight improvement in neuro exam Respiratory: Acute hypoxic and hypercarbic respiratory failure Right sided empyema Continue with vent support keep sats >92%, vent day 14 Bronchodilates, ICU vent bundle, SBT daily as marquez, mental status will not permit extubation, but there is slight improvement in mentation Family leaning against trach/PEG s/p right pigtail catheter placement 02/03, dislodged 02/13 night Pleural fluid analysis c/w empyema CXR 02/10 unchanged in b/l pulm infiltrates, may need repeat CT of the chest Cardiovascular: Mixed hypovolemic and septic shock, resolved Atrial fibrillation with rapid ventricular response Monitor HR and BP keep MAP>65mmHg Cardizem 60mg QID, Status post 5 L crystalloid resuscitation in the emergency department Lactic acid is trending down Echo showed EF 60-65%, no RWMA s/p EMILY 02/10 : No vegetations, unremarkable Renal: Acute kidney injury-severe Acute rhabdomyolysis Obstructive uropathy BPH Monitor renal function, I/O's, avoid nephrotoxins, s/p HD 02/14 Urology is following- s/p 16Fr Ennis catheter placement, reconsulted due to obstruction-urology following Renal is following- Dr. Dinh. FEN/GI: Elevated LFT's with hyperbilirubinemia Acute protein calorie malnutrition: S KUB abdomen 02/11: Non specific bowel gas pattern, no def mechanical obstruction Tube feeds ( Nepro) as tolerated Ammonia level <10 on 02/02 Hepatitis profile: Non reactive, GI is following MRCP 02/10: No biliary obstruction. Bowel regimen with Lactulose, Colace and Senna. Heme/ID: Coagulopathy, probably secondary to end-stage liver disease Thrombocytopenia, secondary to shock Leukopenia, secondary septic shock On Teflaro, Cefepime, Oxacillin, micafungin Monitor for signs of infections ( Fever, WBC) Follow up on cultures on BC from 02/11 NGTD 02/08 BC coag negative staph bacteremia 02/02 Sputum cx: GNR 02/02 Urine cx: Staph Aureus 02/03 BC: GPC 08/12 bottles 02/03 Fluid cx: NGTD HIV ab: non reactive Monitor CBC, coags s/p transfusion 1u PRBC on 02/11 s/p transfusion 1u PLT pheresis 02/08 Endocrine: Hyperglycemia of critical illness -- SSI, TSH 1.6 Prophylaxis: GI Prophylaxis Protonix IV DVT Prophylaxis -- SCDs - Subcu heparin on hold for thrombocytopenia Palliative care is following Code status: Alternative code Lines: Right IJ vascath placed 02/08. Peripheral IV's Level 3
[2018-02-15 10:51] LABS: Alanine Aminotransferase 23 U/L (12-78); Albumin 1.5 g/dL (3.4-5.0); Anion Gap 18 meq/L (5-15); Aspartate Aminotransferase 52 U/L (15-37); Blood Urea Nitrogen 71 mg/dL (7-18); Calcium 7.9 mg/dL (8.5-10.1); Chloride 106 meq/L (98-107); Glomerular Filtration Rate 12 mL/min (>89); Glucose,Random 159 mg/dL (74-106); Potassium 4.6 meq/L (3.5-5.1); Sodium 144 meq/L (136-145)
[2018-02-15 11:00] LABS: Alkaline Phosphatase 464 U/L (45-117); Total Protein 5.6 g/dL (6.4-8.2)
--- NOTE | 2018-02-15 11:41 | XR ---
EXAM DATE: 02/15/2018 11:33 AM EDT AGE/SEX: 57 years / Male INDICATIONS: Respiratory Disease. CLINICAL DATA: This is the patient's subsequent encounter. Patient reports that signs and symptoms h ave been present for 1 week and indicates a pain score of Nonresponsive. MEDICAL/SURGICAL HISTORY: Hypertension. None. COMPARISON: C, CHEST 1V SINGLE AP, 02/14/2018. . FINDINGS: The appearance of the chest is unchanged. Significant opacity remains evident in both lung collins conrado ecially within the bases. Support devices which included an endotracheal tube, nasogastric tube and right jugular central venou s catheter remain in good position. Heart and mediastinal structures are stable. CONCLUSION: Persistent significant bilateral lung opacity characteristic of bilateral effusions with underlying a irspace disease. No significant change since prior study. Stable supportive devices. Electronically signed by: Leonidas Herrera MD 02/15/2018 11:40 AM EDT
--- NOTE | 2018-02-15 11:49 | P.PNPAL ---
Reason for Visit Reason for visit: a. To assist with evaluation and management of symptoms including: pain, anxiety b. To assist medical decision maker(s) with: better understanding of current medical conditions; weighing benefits/burdens of medical treatment options; making medical treatment decisions. Subjective Subjective/Interval History: Pt off sedation. Patient off pressors, continue to be on hemodialysis. Continue to be intubated. Afebrile. Family/Friend Interactions: Spoke with son Ronald who is amenable to wait until the end of this week before consideration transition to comfort. They did emphasize no trach or peg. Gave updates as to his clinical condition. Objective Vital Signs: Vital Signs 02/14/18 11:38 02/14/18 12:00 02/14/18 14:45 Temperature 99.1 F 98.3 F Pulse Rate 61 61 Respiratory Rate 18 18 20 Blood Pressure 96/54 L 96/54 L Pulse Oximetry 97 02/14/18 16:00 02/14/18 17:50 02/14/18 17:57 Temperature 98.5 F Pulse Rate 66 66 63 Respiratory Rate 18 18 Blood Pressure 96/57 L Pulse Oximetry 99 02/14/18 18:02 02/14/18 19:00 02/14/18 20:00 Temperature 98.2 F Pulse Rate 67 67 Respiratory Rate 18 18 18 Blood Pressure 94/53 L 92/52 L Pulse Oximetry 96 94 L 02/14/18 21:00 02/14/18 21:21 02/14/18 22:00 Temperature Pulse Rate 63 63 67 Respiratory Rate 18 18 19 Blood Pressure 96/55 L 92/53 L Pulse Oximetry 94 L 99 94 L 02/14/18 23:00 02/15/18 00:00 02/15/18 01:00 Temperature 99.0 F Pulse Rate 68 67 69 Respiratory Rate 19 20 20 Blood Pressure 98/57 L 97/54 L 105/61 Pulse Oximetry 95 94 L 96 02/15/18 02:00 02/15/18 02:19 02/15/18 03:00 Temperature Pulse Rate 67 67 Respiratory Rate 19 20 19 Blood Pressure 101/58 L 101/58 L Pulse Oximetry 96 97 96 02/15/18 04:00 02/15/18 05:00 02/15/18 05:41 Temperature 98.4 F Pulse Rate 66 65 Respiratory Rate 19 27 H 21 Blood Pressure 94/52 L 95/56 L Pulse Oximetry 96 97 98 02/15/18 06:00 02/15/18 07:00 02/15/18 07:55 Temperature 98.5 F Pulse Rate 64 61 62 Respiratory Rate 20 18 18 Blood Pressure 101/61 107/60 107/60 Pulse Oximetry 98 97 02/15/18 08:00 02/15/18 10:00 Temperature Pulse Rate 63 65 Respiratory Rate 29 H Blood Pressure Pulse Oximetry 97 Intake & Output 02/14/18 02/15/18 02/15/18 18:59 06:59 18:59 Intake Total 1306 / 1306 1691 / 1691 963 / 963 Output Total 600 / 600 Balance 1281 / 1281 1091 / 1091 963 / 963 Weight 111.5 kg Intake: IV 650 / 650 700 / 700 503 / 503 Maxipime Inj 2,000 MG In NS Inj 100 / 100 100 ML @ 200 mls/hr IV.SIG Q24H LEROY Rx#:[id number] Teflaro Inj 600 MG In NS Inj 200 / 200 100 / 100 100 ML @ 100 mls/hr IV.SIG Q8H LEROY Rx#:[id number] Precedex Inj 1,000 MCG In NS 250 / 250 500 / 500 Inj 240 ML @ 0.2 MCG/KG/HR 5.35 mls/hr IV.SIG TITRATE PRN Rx#: [id number] Mycamine Inj 100 MG In NS Inj 100 / 100 100 ML @ 100 mls/hr IV.SIG Q24H LEROY Rx#:[id number] Prostaphlin Inj 2 GM In NS Inj 200 / 200 200 / 200 100 / 100 100 ML @ 200 mls/hr IV.SIG Q4H LEROY Rx#:[id number] Oral 0 / 0 Tube Feeding 456 / 456 901 / 901 Tube Irrigant 200 / 200 30 / 30 Water Bolus Amount 0 / 0 Other 60 / 60 Rbc As-3 Leukoreduced Unit 60 / 60 [id number] Intake (Blood Product) Amt 0 / 0 400 / 400 Rbc As-3 Leukoreduced Unit 0 / 0 400 / 400 [id number] Bladder Irrigation Fluid - 60 / 60 Amount Retained Coude 60 / 60 Output: Urine 0 / 0 Stool 0 / 0 300 / 300 Pleural Fluid 0 / 0 Hemodialysis Amount 0 / 0 Urine Amount (Catheter) 25 / 25 300 / 300 Coude 25 / 25 300 / 300 Gastric Drainage 0 / 0 Orogastric Tube 0 / 0 Chest Tube Drainage 0 / 0 #1 Right Anterior 0 / 0 Other: Bladder Irrigation Fluid - Amount Instilled Coude 420 Bladder Irrigation Fluid - Amount Drained Coude 560 Other Intake Source Rbc As-3 Leukoreduced Unit Saline Solution [id number] Date of Last Bowel Movement 02/14/18 02/15/18 # Bowel Movements 0 # Incontinent Bowel Movements 0 Weight On Admission 113 kg Physical Exam: CONSTITUTIONAL/GENERAL: This is a critically ill 57 year old male, intubated TUBES/LINES/DRAINS: pigtail cathether, quezada, ET tube, central line. SKIN:jaundice HEAD: Atraumatic. Normocephalic. EYES: Pupils equal and round and reactive. Icteric scelera ENT: Hearing grossly normal. Nose without bleeding or purulent drainage. Throat ET tube present NECK: Trachea midline. Supple, nontender. No palpable thyroid enlargement or nodularity. CARDIOVASCULAR: Regular rate and rhythm without murmurs, gallops, or rubs. No JVD. RESPIRATORY/CHEST:Rhonchi bilaterally. GASTROINTESTINAL: Abdomen distended. soft. BS present. GENITOURINARY: Without palpable bladder distension. Quezada catheter in place. MUSCULOSKELETAL: Extremities without clubbing, cyanosis. 2+ edema LYMPHATICS: No palpable cervical or supraclavicular adenopathy. NEUROLOGICAL: Intubated PSYCHIATRIC: unable to elicit Diagnostic Tests Laboratory: Laboratory Results - last 72 hr 02/10/18 02/11/18 02/12/18 14:19 15:17 13:06 WBC RBC Hgb Hct MCV MCH MCHC RDW Plt Count MPV Neut % (Auto) Lymph % (Auto) Dixon % (Auto) Eos % (Auto) Baso % (Auto) Neut # (Auto) Lymph # (Auto) Dixon # (Auto) Eos # (Auto) Baso # (Auto) WBC Differential Differential Comment PT INR APTT Fibrinogen Sodium Potassium Chloride Carbon Dioxide Anion Gap BUN Creatinine Estimated GFR POC Glucose 233 H Random Glucose Calcium Prot Corrected Calcium Total Bilirubin AST ALT Alkaline Phosphatase Lactate Dehydrogenase Total Protein Albumin Urine Color Urine Clarity Urine pH Ur Specific [place] Urine Protein Urine Glucose (UA) Urine Ketones Urine Occult Blood Urine Nitrate Urine Bilirubin Urine Urobilinogen Ur Leukocyte Esterase Urine RBC Urine WBC Urine WBC Clumps Urine Bacteria Micro UA Comment Urine Culture Comments Urine Eosinophils Copper 79 Blood Type Antibody Screen MTS Gel Crossmatch See Detail 02/12/18 02/13/18 02/13/18 18:22 01:39 04:35 WBC 4.2 RBC 2.38 L Hgb 7.2 L Hct 21.7 L MCV 91.5 MCH 30.2 MCHC 32.9 RDW 18.4 H Plt Count 110 L D MPV 9.7 Neut % (Auto) 86.1 H Lymph % (Auto) 5.6 L Dixon % (Auto) 7.1 Eos % (Auto) 0.3 Baso % (Auto) 0.9 Neut # (Auto) 3.6 Lymph # (Auto) 0.2 L Dixon # (Auto) 0.3 Eos # (Auto) 0.0 Baso # (Auto) 0.0 WBC Differential . Differential Comment Auto diff final PT INR APTT Fibrinogen Sodium Potassium Chloride Carbon Dioxide Anion Gap BUN Creatinine Estimated GFR POC Glucose 227 H 312 H Random Glucose Calcium Prot Corrected Calcium Total Bilirubin AST ALT Alkaline Phosphatase Lactate Dehydrogenase Total Protein Albumin Urine Color Urine Clarity Urine pH Ur Specific [place] Urine Protein Urine Glucose (UA) Urine Ketones Urine Occult Blood Urine Nitrate Urine Bilirubin Urine Urobilinogen Ur Leukocyte Esterase Urine RBC Urine WBC Urine WBC Clumps Urine Bacteria Micro UA Comment Urine Culture Comments Urine Eosinophils Copper Blood Type Antibody Screen MTS Gel Crossmatch 02/13/18 02/13/18 02/13/18 04:35 05:34 11:44 WBC RBC Hgb Hct MCV MCH MCHC RDW Plt Count MPV Neut % (Auto) Lymph % (Auto) Dixon % (Auto) Eos % (Auto) Baso % (Auto) Neut # (Auto) Lymph # (Auto) Dixon # (Auto) Eos # (Auto) Baso # (Auto) WBC Differential Differential Comment PT INR APTT Fibrinogen Sodium 144 Potassium 4.6 Chloride 107 Carbon Dioxide 19.4 L Anion Gap 18 H BUN 81 H Creatinine 5.69 H Estimated GFR 10 L POC Glucose 232 H 242 H Random Glucose 213 H Calcium 6.6 L* Prot Corrected Calcium 7.4 L* Total Bilirubin 5.6 H AST 49 H ALT 23 Alkaline Phosphatase 278 H Lactate Dehydrogenase Total Protein 5.5 L Albumin 1.3 L Urine Color Urine Clarity Urine pH Ur Specific [place] Urine Protein Urine Glucose (UA) Urine Ketones Urine Occult Blood Urine Nitrate Urine Bilirubin Urine Urobilinogen Ur Leukocyte Esterase Urine RBC Urine WBC Urine WBC Clumps Urine Bacteria Micro UA Comment Urine Culture Comments Urine Eosinophils Copper Blood Type Antibody Screen MTS Gel Crossmatch 02/13/18 02/14/18 02/14/18 17:29 00:30 04:10 WBC 4.3 RBC 2.30 L Hgb 7.1 L Hct 21.5 L MCV 93.6 MCH 30.8 MCHC 32.9 RDW 18.8 H Plt Count 139 L MPV 9.8 Neut % (Auto) 80.0 H Lymph % (Auto) 11.8 Dixon % (Auto) 6.5 Eos % (Auto) 0.3 Baso % (Auto) 1.4 Neut # (Auto) 3.4 Lymph # (Auto) 0.5 L Dixon # (Auto) 0.3 Eos # (Auto) 0.0 Baso # (Auto) 0.1 WBC Differential . Differential Comment Auto diff final PT INR APTT Fibrinogen Sodium Potassium Chloride Carbon Dioxide Anion Gap BUN Creatinine Estimated GFR POC Glucose 245 H 285 H Random Glucose Calcium Prot Corrected Calcium Total Bilirubin AST ALT Alkaline Phosphatase Lactate Dehydrogenase Total Protein Albumin Urine Color Urine Clarity Urine pH Ur Specific [place] Urine Protein Urine Glucose (UA) Urine Ketones Urine Occult Blood Urine Nitrate Urine Bilirubin Urine Urobilinogen Ur Leukocyte Esterase Urine RBC Urine WBC Urine WBC Clumps Urine Bacteria Micro UA Comment Urine Culture Comments Urine Eosinophils Copper Blood Type Antibody Screen MTS Gel Crossmatch 02/14/18 02/14/18 02/14/18 04:10 06:20 11:45 WBC RBC Hgb Hct MCV MCH MCHC RDW Plt Count MPV Neut % (Auto) Lymph % (Auto) Dixon % (Auto) Eos % (Auto) Baso % (Auto) Neut # (Auto) Lymph # (Auto) Dixon # (Auto) Eos # (Auto) Baso # (Auto) WBC Differential Differential Comment PT INR APTT Fibrinogen Sodium 142 Potassium 5.4 H D Chloride 106 Carbon Dioxide 16.9 L Anion Gap 19 H BUN 92 H Creatinine 6.40 H Estimated GFR 9 L POC Glucose 349 H Random Glucose 293 H Calcium 6.9 L* Prot Corrected Calcium 7.5 L Total Bilirubin 4.6 H AST 58 H ALT 25 Alkaline Phosphatase 377 H Lactate Dehydrogenase 451 H Total Protein 5.9 L 5.9 L Albumin 1.2 L Urine Color Urine Clarity Urine pH Ur Specific [place] Urine Protein Urine Glucose (UA) Urine Ketones Urine Occult Blood Urine Nitrate Urine Bilirubin Urine Urobilinogen Ur Leukocyte Esterase Urine RBC Urine WBC Urine WBC Clumps Urine Bacteria Micro UA Comment Urine Culture Comments Urine Eosinophils [place]pper Blood Type Antibody Screen MTS Gel Crossmatch 02/14/18 02/14/18 02/14/18 11:45 11:45 12:20 WBC 3.7 L RBC 2.14 L Hgb 6.6 L* Hct 19.9 L* MCV 92.7 MCH 30.9 MCHC 33.3 RDW 19.0 H Plt Count 128 L MPV 9.8 Neut % (Auto) Lymph % (Auto) Dixon % (Auto) Eos % (Auto) Baso % (Auto) Neut # (Auto) Lymph # (Auto) Dixon # (Auto) Eos # (Auto) Baso # (Auto) WBC Differential Differential Comment PT 11.5 INR 1.1 APTT 28.0 Fibrinogen Sodium Potassium Chloride Carbon Dioxide Anion Gap BUN Creatinine Estimated GFR POC Glucose 333 H Random Glucose Calcium Prot Corrected Calcium Total Bilirubin AST ALT Alkaline Phosphatase Lactate Dehydrogenase Total Protein Albumin Urine Color Urine Clarity Urine pH Ur Specific [place] Urine Protein Urine Glucose (UA) Urine Ketones Urine Occult Blood Urine Nitrate Urine Bilirubin Urine Urobilinogen Ur Leukocyte Esterase Urine RBC Urine WBC Urine WBC Clumps Urine Bacteria Micro UA Comment Urine Culture Comments Urine Eosinophils [place]pper Blood Type Antibody Screen MTS Gel Crossmatch 02/14/18 02/14/18 02/14/18 13:00 17:30 21:37 WBC RBC Hgb Hct MCV MCH MCHC RDW Plt Count MPV Neut % (Auto) Lymph % (Auto) Dixon % (Auto) Eos % (Auto) Baso % (Auto) Neut # (Auto) Lymph # (Auto) Dixon # (Auto) Eos # (Auto) Baso # (Auto) WBC Differential Differential Comment PT INR APTT Fibrinogen Sodium Potassium Chloride Carbon Dioxide Anion Gap BUN Creatinine Estimated GFR POC Glucose 181 H 201 H Random Glucose Calcium Prot Corrected Calcium Total Bilirubin AST ALT Alkaline Phosphatase Lactate Dehydrogenase Total Protein Albumin Urine Color Urine Clarity Urine pH Ur Specific [place] Urine Protein Urine Glucose (UA) Urine Ketones Urine Occult Blood Urine Nitrate Urine Bilirubin Urine Urobilinogen Ur Leukocyte Esterase Urine RBC Urine WBC Urine WBC Clumps Urine Bacteria Micro UA Comment Urine Culture Comments Urine Eosinophils [place] Blood Type O Positive Antibody Screen Negative MTS Gel Crossmatch See Detail 02/15/18 02/15/18 02/15/18 00:07 01:30 01:30 WBC 3.4 L RBC 2.43 L Hgb 7.4 L Hct 22.2 L MCV 91.5 MCH 30.5 MCHC 33.3 RDW 18.1 H Plt Count 133 L MPV 9.6 Neut % (Auto) Lymph % (Auto) Dixon % (Auto) Eos % (Auto) Baso % (Auto) Neut # (Auto) Lymph # (Auto) Dixon # (Auto) Eos # (Auto) Baso # (Auto) WBC Differential Differential Comment PT 11.4 INR 1.1 APTT 27.9 Fibrinogen 401 H Sodium Potassium Chloride Carbon Dioxide Anion Gap BUN Creatinine Estimated GFR POC Glucose 285 H Random Glucose Calcium Prot Corrected Calcium Total Bilirubin AST ALT Alkaline Phosphatase Lactate Dehydrogenase Total Protein Albumin Urine Color Urine Clarity Urine pH Ur Specific [place] Urine Protein Urine Glucose (UA) Urine Ketones Urine Occult Blood Urine Nitrate Urine Bilirubin Urine Urobilinogen Ur Leukocyte Esterase Urine RBC Urine WBC Urine WBC Clumps Urine Bacteria Micro UA Comment Urine Culture Comments Urine Eosinophils [place]pper Blood Type Antibody Screen MTS Gel Crossmatch 02/15/18 02/15/18 02/15/18 02:25 02:25 05:56 WBC RBC Hgb Hct MCV MCH MCHC RDW Plt Count MPV Neut % (Auto) Lymph % (Auto) [place] % (Auto) Eos % (Auto) Baso % (Auto) Neut # (Auto) Lymph # (Auto) Dixon # (Auto) Eos # (Auto) Baso # (Auto) WBC Differential Differential Comment PT INR APTT Fibrinogen Sodium Potassium Chloride Carbon Dioxide Anion Gap BUN Creatinine Estimated GFR POC Glucose 137 H Random Glucose Calcium Prot Corrected Calcium Total Bilirubin AST ALT Alkaline Phosphatase Lactate Dehydrogenase Total Protein Albumin Urine Color Red Urine Clarity Cloudy H Urine pH 8.0 Ur Specific [place] 1.018 Urine Protein 500 or greater Urine Glucose (UA) 150 H Urine Ketones Negative Urine Occult Blood Large H Urine Nitrate Negative Urine Bilirubin Negative Urine Urobilinogen Less than 2 Ur Leukocyte Esterase Negative Urine RBC Urine WBC Urine WBC Clumps Many H Urine Bacteria Many H Micro UA Comment Cath-culture ind Urine Culture Comments Cath-cult indicated Urine Eosinophils None seen Copper Blood Type Antibody Screen MTS Gel Crossmatch 02/15/18 02/15/18 10:20 11:18 WBC RBC Hgb Hct MCV MCH MCHC RDW Plt Count MPV Neut % (Auto) Lymph % (Auto) [place] % (Auto) Eos % (Auto) Baso % (Auto) Neut # (Auto) Lymph # (Auto) [place] # (Auto) Eos # (Auto) Baso # (Auto) WBC Differential Differential Comment PT INR APTT Fibrinogen Sodium 144 Potassium 4.6 D Chloride 106 Carbon Dioxide 20.0 L Anion Gap 18 H BUN 71 H Creatinine 5.15 H Estimated GFR 12 L POC Glucose 165 H Random Glucose 159 H D Calcium 7.9 L D Prot Corrected Calcium Total Bilirubin 3.6 H AST 52 H ALT 23 Alkaline Phosphatase 464 H Lactate Dehydrogenase Total Protein 5.6 L Albumin 1.5 L Urine Color Urine Clarity Urine pH Ur Specific [place] Urine Protein Urine Glucose (UA) Urine Ketones Urine Occult Blood Urine Nitrate Urine Bilirubin Urine Urobilinogen Ur Leukocyte Esterase Urine RBC Urine WBC Urine WBC Clumps Urine Bacteria Micro UA Comment Urine Culture Comments Urine Eosinophils [place] Blood Type Antibody Screen MTS Gel Crossmatch Result Diagrams: 02/15/18 01:30 02/15/18 10:20 Microbiology: Microbiology 02/14/18 10:10 Aerobic Blood Culture - Preliminary Blood - Peripheral No growth in 1 day Anaerobic Blood Culture - Preliminary No growth in 1 day 02/14/18 10:20 Aerobic Blood Culture - Preliminary Blood - Peripheral No growth in 1 day Anaerobic Blood Culture - Preliminary No growth in 1 day 02/11/18 04:50 Aerobic Blood Culture - Preliminary Blood - Peripheral No growth in 4 days Anaerobic Blood Culture - Preliminary No growth in 4 days 02/11/18 04:57 Aerobic Blood Culture - Preliminary Blood - Peripheral No growth in 4 days Anaerobic Blood Culture - Preliminary No growth in 4 days 02/14/18 11:44 Gram Stain - Final Sputum - Endotracheal 02/08/18 14:02 Aerobic Blood Culture - Final Blood - Peripheral Staphylococcus epidermidis Anaerobic Blood Culture - Final No growth in 5 days 02/08/18 13:55 Aerobic Blood Culture - Final Blood - Peripheral Staphylococcus epidermidis Anaerobic Blood Culture - Final No growth in 5 days 02/07/18 03:59 Aerobic Blood Culture - Final Blood - Peripheral Staphylococcus aureus Anaerobic Blood Culture - Final No growth in 5 days Assessment and Plan - Disease Oriented Problem List (1) Acute renal failure (ARF) (2) Sepsis (3) Respiratory failure (4) Hypotension (5) Cholelithiasis Pertinent Non-Medical Issues: Psychosocial: Veteram. disablilty (back pain) and x 3. Have one son Ronald Forrester from 2nd marriage. Spiritual:shannon Legal:no known advacnce directive per bother. Ethical issues impacting care: Important Contacts: (Son/ health care proxy) [phone] (brother)Chris Forrester [phone] Prognosis: 57 year old hx of etoh abuse, came in with severe sepsis, tachycardia, respiratory failure. Pt continue to be in sepsis with pressor support, mechanically ventilated, on dialysis, encephalopathic, hepatic shock. Prognosis is guarded. Code Status: No Code DNR (no cpr/acls/shock) Plan: == capacity- does not have capacity to make medical decision. Critically ill, encephalopathic, multi-organ failure. I do not anticipate return to have capacity unless pt becomes non critical. There is a big potential that this may not happen. == health care decision maker: x 3, and x 3. Son from 2nd marriage Ronald Forrester is medical decision maker == code- DNR. No reintubation if medically extubated. Goals of care- I spoke with patient's son/ health care proxy. Pt would not want peg and trach. If he is not able to be medically extubated, amenable to transition to comfort. No symptom: pain- tachycardia, chronic back pain, found on the floor, hospitalize debility- fentanyl protocol placed anxiety- associated with dyspnea and discomfort. -no new med rec. == Palliative care will follow to make recommendation for symptom managment, and review goals of care as clinical conditions evolves. d/w with critical care and ID.
--- NOTE | 2018-02-15 15:29 | P.PNCA ---
<Brianda Lyn N - Last Filed: 02/15/18 15:21> Subjective Interval history: Pt is in no acute distress. Pt intubated and sedated. No improvement in patient status. Physical Exam Vital signs: Vital Signs 02/14/18 16:00 02/14/18 17:50 02/14/18 17:57 Temperature 98.5 F Pulse Rate 66 66 63 Respiratory Rate 18 18 Blood Pressure 96/57 L Pulse Oximetry 99 02/14/18 18:02 02/14/18 19:00 02/14/18 20:00 Temperature 98.2 F Pulse Rate 67 67 Respiratory Rate 18 18 18 Blood Pressure 94/53 L 92/52 L Pulse Oximetry 96 94 L 02/14/18 21:00 02/14/18 21:21 02/14/18 22:00 Temperature Pulse Rate 63 63 67 Respiratory Rate 18 18 19 Blood Pressure 96/55 L 92/53 L Pulse Oximetry 94 L 99 94 L 02/14/18 23:00 02/15/18 00:00 02/15/18 01:00 Temperature 99.0 F Pulse Rate 68 67 69 Respiratory Rate 19 20 20 Blood Pressure 98/57 L 97/54 L 105/61 Pulse Oximetry 95 94 L 96 02/15/18 02:00 02/15/18 02:19 02/15/18 03:00 Temperature Pulse Rate 67 67 Respiratory Rate 19 20 19 Blood Pressure 101/58 L 101/58 L Pulse Oximetry 96 97 96 02/15/18 04:00 02/15/18 05:00 02/15/18 05:41 Temperature 98.4 F Pulse Rate 66 65 Respiratory Rate 19 27 H 21 Blood Pressure 94/52 L 95/56 L Pulse Oximetry 96 97 98 02/15/18 06:00 02/15/18 07:00 02/15/18 07:55 Temperature 98.5 F Pulse Rate 64 61 62 Respiratory Rate 20 18 18 Blood Pressure 101/61 107/60 107/60 Pulse Oximetry 98 97 02/15/18 08:00 02/15/18 10:00 02/15/18 11:46 Temperature Pulse Rate 63 65 Respiratory Rate 29 H 36 H Blood Pressure Pulse Oximetry 97 95 02/15/18 12:00 Temperature 98.3 F Pulse Rate 62 Respiratory Rate 18 Blood Pressure 107/60 Pulse Oximetry Intake & Output 02/14/18 02/15/18 02/15/18 18:59 06:59 18:59 Intake Total 1306 / 1306 1691 / 1691 1363 / 1363 Output Total 25 / 600 / 600 Balance 1281 / 1281 1091 / 1091 1363 / 1363 Weight 111.5 kg Intake: IV 650 / 650 700 / 700 903 / 903 Maxipime Inj 2,000 MG In NS Inj 100 / 100 100 ML @ 200 mls/hr IV.SIG Q24H LEROY Rx#:[id number] Teflaro Inj 600 MG In NS Inj 200 / 200 200 / 200 100 ML @ 100 mls/hr IV.SIG Q8H LEROY Rx#:[id number] Precedex Inj 1,000 MCG In NS 250 / 250 500 / 500 200 / 200 Inj 240 ML @ 0.2 MCG/KG/HR 5.35 mls/hr IV.SIG TITRATE PRN Rx#: [id number] Mycamine Inj 100 MG In NS Inj 100 / 100 100 ML @ 100 mls/hr IV.SIG Q24H LEROY Rx#:[id number] Prostaphlin Inj 2 GM In NS Inj 200 / 200 200 / 200 200 / 200 100 ML @ 200 mls/hr IV.SIG Q4H LEROY Rx#:[id number] Oral 0 / 0 Tube Feeding 456 / 456 901 / 901 Tube Irrigant 200 / 200 30 / 30 Water Bolus Amount 0 / 0 Other 60 / 60 Rbc As-3 Leukoreduced Unit 60 / 60 [id number] Intake (Blood Product) Amt 0 / 0 400 / 400 Rbc As-3 Leukoreduced Unit 0 / 0 400 / 400 [id number] Bladder Irrigation Fluid - 60 / 60 Amount Retained Coude 60 / 60 Output: Urine 0 / 0 Stool 0 / 0 300 / 300 Pleural Fluid 0 / 0 Hemodialysis Amount 0 / 0 Urine Amount (Catheter) 25 / 25 300 / 300 Coude 25 / 25 300 / 300 Gastric Drainage 0 / 0 Orogastric Tube 0 / 0 Chest Tube Drainage 0 / 0 #1 Right Anterior 0 / 0 Other: Bladder Irrigation Fluid - Amount Instilled Coude 420 Bladder Irrigation Fluid - Amount Drained Coude 560 Other Intake Source Rbc As-3 Leukoreduced Unit Saline Solution [id number] Date of Last Bowel Movement 02/14/18 02/15/18 02/15/18 # Bowel Movements 0 # Incontinent Bowel Movements 0 Weight On Admission 113 kg - Constitutional no acute distress - Routine Respiratory Exam Present: rhonchi Comments: rhonchi noted throughout - Routine Cardiovascular Exam Present: RRR - Routine Extremities Exam Present: pulses intact - Routine Neurological Exam Pt sedated - Urinary Catheter Management Coude Cath placed during this visit: yes Urethral indwelling: Yes Reason for continuing: Other continuation reason Insertion date: 02/02/18 Assessment and Plan - Assessment (1) Encephalopathy Code(s): G93.40 - Encephalopathy, unspecified Status: Acute (2) Septic shock Code(s): A41.9 - Sepsis, unspecified organism; R65.21 - Severe sepsis with septic shock Status: Acute (3) Atrial flutter Code(s): I48.92 - Unspecified atrial flutter Status: Acute (4) ANIBAL (acute kidney injury) Code(s): N17.9 - Acute kidney failure, unspecified Status: Acute (5) Respiratory failure Code(s): J96.90 - Respiratory failure, unspecified, unspecified whether with hypoxia or hypercapnia Status: Acute - Plan No cardiac events noted per tele. Rhythm stable. Continue abxs as per ID. Pt not improving, possibly move to comfort care or palliative care. Continue with current cardiac treatment plan. The patient was seen and evaluated by Dr. Delcid who participated in care, management and decision making. <Kellen Delcid - Last Filed: 02/15/18 20:53> Physical Exam Vital signs: Vital Signs 02/14/18 21:00 02/14/18 21:15 02/14/18 21:21 Temperature Pulse Rate 63 62 63 Respiratory Rate 18 18 18 Blood Pressure 96/55 L 103/58 L Pulse Oximetry 94 L 94 L 99 02/14/18 21:30 02/14/18 21:45 02/14/18 22:00 Temperature Pulse Rate 64 66 67 Respiratory Rate 18 19 19 Blood Pressure 96/54 L 91/50 L 92/53 L Pulse Oximetry 94 L 94 L 94 L 02/14/18 22:15 02/14/18 23:00 02/15/18 00:00 Temperature 99.0 F Pulse Rate 68 68 67 Respiratory Rate 19 19 20 Blood Pressure 96/55 L 98/57 L 97/54 L Pulse Oximetry 94 L 95 94 L 02/15/18 01:00 02/15/18 02:00 02/15/18 02:19 Temperature Pulse Rate 69 67 Respiratory Rate 24 19 20 Blood Pressure 105/61 101/58 L Pulse Oximetry 96 96 97 02/15/18 03:00 02/15/18 04:00 02/15/18 05:00 Temperature 98.4 F Pulse Rate 67 66 65 Respiratory Rate 19 19 27 H Blood Pressure 101/58 L 94/52 L 95/56 L Pulse Oximetry 96 96 97 02/15/18 05:41 02/15/18 06:00 02/15/18 07:00 Temperature Pulse Rate 64 61 Respiratory Rate 21 20 18 Blood Pressure 101/61 107/60 Pulse Oximetry 98 98 97 02/15/18 07:55 02/15/18 08:00 02/15/18 09:00 Temperature 98.5 F Pulse Rate 62 63 65 Respiratory Rate 18 18 29 H Blood Pressure 107/60 101/57 L 94/55 L Pulse Oximetry 97 97 02/15/18 10:00 02/15/18 11:00 02/15/18 11:46 Temperature Pulse Rate 65 68 Respiratory Rate 29 H 36 H 36 H Blood Pressure 100/55 L 97/56 L Pulse Oximetry 96 97 95 02/15/18 12:00 02/15/18 13:00 02/15/18 14:00 Temperature 98.3 F Pulse Rate 72 77 82 Respiratory Rate 39 H 39 H 41 H Blood Pressure 101/57 L 101/58 L 107/56 L Pulse Oximetry 95 95 95 02/15/18 15:00 02/15/18 15:56 02/15/18 16:00 Temperature Pulse Rate 80 83 Respiratory Rate 23 24 32 H Blood Pressure 100/58 L 134/74 Pulse Oximetry 95 96 95 02/15/18 17:00 02/15/18 18:00 Temperature Pulse Rate 84 90 Respiratory Rate 23 25 H Blood Pressure 112/59 L 119/64 Pulse Oximetry 96 94 L Intake & Output 02/15/18 02/15/18 02/16/18 06:59 18:59 06:59 Intake Total 1691 / 1691 2047 / 2047 Output Total 600 / 600 900 / 900 Balance 1091 / 1091 1147 / 1147 Weight 245 lb 13.047 oz Intake: IV 700 / 700 1003 / 1003 Maxipime Inj 2,000 MG In NS Inj 100 / 100 100 ML @ 200 mls/hr IV.SIG Q24H [facility]EROY Rx#:[id number] Teflaro Inj 600 MG In NS Inj 200 / 200 100 ML @ 100 mls/hr IV.SIG Q8H [facility]ERO[facility] Rx#:[id number] Precedex Inj 1,000 MCG In NS 500 / 500 200 / 200 Inj 240 ML @ 0.2 MCG/KG/HR 5.35 mls/hr IV.SIG TITRATE PRN Rx#: [id number] Mycamine Inj 100 MG In NS Inj 100 / 100 100 ML @ 100 mls/hr IV.SIG Q24H [facility]ERO[facility] Rx#:[id number] Prostaphlin Inj 2 GM In NS Inj 200 / 200 300 / 300 100 ML @ 200 mls/hr IV.SIG Q4H LEROY Rx#:[id number] Tube Feeding 901 / 901 504 / 504 Tube Irrigant 30 / 30 30 / 30 Other 60 / 60 Rbc As-3 Leukoreduced Unit 60 / 60 [id number] Intake (Blood Product) Amt 400 / 400 Rbc As-3 Leukoreduced Unit 400 / 400 [id number] Bladder Irrigation Fluid - 60 / 60 50 / 50 Amount Retained Coude 60 / 60 50 / 50 Output: Urine 600 / 600 Stool 300 / 300 300 / 300 Urine Amount (Catheter) 300 / 300 Coude 300 / 300 Other: Bladder Irrigation Fluid - Amount Instilled Coude 420 650 Bladder Irrigation Fluid - Amount Drained Coude 560 600 Other Intake Source Rbc As-3 Leukoreduced Unit Saline Solution [id number] Date of Last Bowel Movement 02/15/18 02/15/18 Weight On Admission 249 lb 1.957 oz - Urinary Catheter Management Coude Cath placed during this visit: no Assessment and Plan - Assessment (1) Encephalopathy Code(s): G93.40 - Encephalopathy, unspecified Status: Acute (2) Septic shock Code(s): A41.9 - Sepsis, unspecified organism; R65.21 - Severe sepsis with septic shock Status: Acute (3) Atrial flutter Code(s): I48.92 - Unspecified atrial flutter Status: Acute (4) ANIBAL (acute kidney injury) Code(s): N17.9 - Acute kidney failure, unspecified Status: Acute (5) Respiratory failure Code(s): J96.90 - Respiratory failure, unspecified, unspecified whether with hypoxia or hypercapnia Status: Acute - Attending Attestation Patent seen and examined. I reviewed and agree with the findings and plan presented. Recommend palliative care evaluation.
--- NOTE | 2018-02-15 15:30 | P.PNGI ---
Subjective Interval history: Patient still remains on ventilator support some occasional random movement Still remains critically ill Current hemoglobin 7.4 <Brittany Willard M - Last Filed: 02/15/18 15:27> Physical Exam Vital signs: Vital Signs 02/14/18 16:00 02/14/18 17:50 02/14/18 17:57 Temperature 98.5 F Pulse Rate 66 66 63 Respiratory Rate 18 18 Blood Pressure 96/57 L Pulse Oximetry 99 02/14/18 18:02 02/14/18 19:00 02/14/18 20:00 Temperature 98.2 F Pulse Rate 67 67 Respiratory Rate 18 18 18 Blood Pressure 94/53 L 92/52 L Pulse Oximetry 96 94 L 02/14/18 21:00 02/14/18 21:21 02/14/18 22:00 Temperature Pulse Rate 63 63 67 Respiratory Rate 18 18 19 Blood Pressure 96/55 L 92/53 L Pulse Oximetry 94 L 99 94 L 02/14/18 23:00 02/15/18 00:00 02/15/18 01:00 Temperature 99.0 F Pulse Rate 68 67 69 Respiratory Rate 19 20 20 Blood Pressure 98/57 L 97/54 L 105/61 Pulse Oximetry 95 94 L 96 02/15/18 02:00 02/15/18 02:19 02/15/18 03:00 Temperature Pulse Rate 67 67 Respiratory Rate 19 20 19 Blood Pressure 101/58 L 101/58 L Pulse Oximetry 96 97 96 02/15/18 04:00 02/15/18 05:00 02/15/18 05:41 Temperature 98.4 F Pulse Rate 66 65 Respiratory Rate 19 27 H 21 Blood Pressure 94/52 L 95/56 L Pulse Oximetry 96 97 98 02/15/18 06:00 02/15/18 07:00 02/15/18 07:55 Temperature 98.5 F Pulse Rate 64 61 62 Respiratory Rate 20 18 18 Blood Pressure 101/61 107/60 107/60 Pulse Oximetry 98 97 02/15/18 08:00 02/15/18 10:00 02/15/18 11:46 Temperature Pulse Rate 63 65 Respiratory Rate 29 H 36 H Blood Pressure Pulse Oximetry 97 95 02/15/18 12:00 Temperature 98.3 F Pulse Rate 62 Respiratory Rate 18 Blood Pressure 107/60 Pulse Oximetry Intake & Output 07/04/2602/15/18 02/15/18 18:59 06:59 18:59 Intake Total 1306 / 1306 1691 / 1691 1363 / 1363 Output Total 25 / 25 600 / 600 Balance 1281 / 1281 1091 / 1091 1363 / 1363 Weight 111.5 kg Intake: IV 650 / 650 700 / 700 903 / 903 Maxipime Inj 2,000 MG In NS Inj 100 / 100 100 ML @ 200 mls/hr IV.SIG Q24H LEROY Rx#:[id number] Teflaro Inj 600 MG In NS Inj 200 / 200 200 / 200 100 ML @ 100 mls/hr IV.SIG Q8H LEROY Rx#:[id number] Precedex Inj 1,000 MCG In NS 250 / 250 500 / 500 200 / 200 Inj 240 ML @ 0.2 MCG/KG/HR 5.35 mls/hr IV.SIG TITRATE PRN Rx#: [id number] Mycamine Inj 100 MG In NS Inj 100 / 100 100 ML @ 100 mls/hr IV.SIG Q24H LEROY Rx#:[id number] Prostaphlin Inj 2 GM In NS Inj 200 / 200 200 / 200 200 / 200 100 ML @ 200 mls/hr IV.SIG Q4H LEROY Rx#:[id number] Oral 0 / 0 Tube Feeding 456 / 456 901 / 901 Tube Irrigant 200 / 200 30 / 30 Water Bolus Amount 0 / 0 Other 60 / 60 Rbc As-3 Leukoreduced Unit 60 / 60 [id number] Intake (Blood Product) Amt 0 / 0 400 / 400 Rbc As-3 Leukoreduced Unit 0 / 0 400 / 400 [id number] Bladder Irrigation Fluid - 60 / 60 Amount Retained Coude 60 / 60 Output: Urine 0 / 0 Stool 0 / 0 300 / 300 Pleural Fluid 0 / 0 Hemodialysis Amount 0 / 0 Urine Amount (Catheter) 25 / 25 300 / 300 Coude 25 / 25 300 / 300 Gastric Drainage 0 / 0 Orogastric Tube 0 / 0 Chest Tube Drainage 0 / 0 #1 Right Anterior 0 / 0 Other: Bladder Irrigation Fluid - Amount Instilled Coude 420 Bladder Irrigation Fluid - Amount Drained Coude 560 Other Intake Source Rbc As-3 Leukoreduced Unit Saline Solution [id number] Date of Last Bowel Movement 02/14/18 02/15/18 02/15/18 # Bowel Movements 0 # Incontinent Bowel Movements 0 Weight On Admission 113 kg - Routine HEENT Exam Head: Present: normocephalic, atraumatic ENT: Present: mucous membranes moist (Ventilator support) - Routine Neck Exam Present: supple - Routine Abdominal Exam Present: distended (Round, minimal soft bowel sounds, taut) - Routine Skin Exam Present: intact - Detailed Neurological Exam: Coma Scale Eye Opening: Spontaneous (But not tracking) - Urinary Catheter Management Coude Cath placed during this visit: yes Urethral indwelling: Yes Reason for continuing: Other continuation reason Insertion date: 02/02/18 <Brittany Willard - Last Filed: 02/15/18 15:27> Vital signs: Vital Signs 02/14/18 17:50 02/14/18 17:57 02/14/18 18:02 Temperature Pulse Rate 66 63 Respiratory Rate 18 18 Blood Pressure Pulse Oximetry 02/14/18 19:00 02/14/18 20:00 02/14/18 21:00 Temperature 98.2 F Pulse Rate 67 67 63 Respiratory Rate 18 18 18 Blood Pressure 94/53 L 92/52 L 96/55 L Pulse Oximetry 96 94 L 94 L 02/14/18 21:21 02/14/18 22:00 02/14/18 23:00 Temperature Pulse Rate 63 67 68 Respiratory Rate 18 19 19 Blood Pressure 92/53 L 98/57 L Pulse Oximetry 99 94 L 95 02/15/18 00:00 02/15/18 01:00 02/15/18 02:00 Temperature 99.0 F Pulse Rate 67 69 67 Respiratory Rate 20 20 19 Blood Pressure 97/54 L 105/61 101/58 L Pulse Oximetry 94 L 96 96 02/15/18 02:19 02/15/18 03:00 02/15/18 04:00 Temperature 98.4 F Pulse Rate 67 66 Respiratory Rate 20 19 19 Blood Pressure 101/58 L 94/52 L Pulse Oximetry 97 96 96 02/15/18 05:00 02/15/18 05:41 02/15/18 06:00 Temperature Pulse Rate 65 64 Respiratory Rate 27 H 21 20 Blood Pressure 95/56 L 101/61 Pulse Oximetry 97 98 98 02/15/18 07:00 02/15/18 07:55 02/15/18 08:00 Temperature 98.5 F Pulse Rate 61 62 63 Respiratory Rate 18 18 29 H Blood Pressure 107/60 107/60 Pulse Oximetry 97 97 02/15/18 10:00 02/15/18 11:46 02/15/18 12:00 Temperature 98.3 F Pulse Rate 65 62 Respiratory Rate 36 H 18 Blood Pressure 107/60 Pulse Oximetry 95 02/15/18 14:00 02/15/18 15:56 Temperature Pulse Rate 82 Respiratory Rate 24 Blood Pressure Pulse Oximetry 96 Intake & Output 02/14/18 02/15/18 02/15/18 18:59 06:59 18:59 Intake Total 1306 / 1306 1691 / 1691 1363 / 1363 Output Total 600 / 600 Balance 1281 / 1281 1091 / 1091 1363 / 1363 Weight 111.5 kg Intake: IV 650 / 650 700 / 700 903 / 903 Maxipime Inj 2,000 MG In NS Inj 100 / 100 100 ML @ 200 mls/hr IV.SIG Q24H LEROY Rx#:[id number] Teflaro Inj 600 MG In NS Inj 200 / 200 200 / 200 100 ML @ 100 mls/hr IV.SIG Q8H [facility]EROY Rx#:[id number] Precedex Inj 1,000 MCG In NS 250 / 250 500 / 500 200 / 200 Inj 240 ML @ 0.2 MCG/KG/HR 5.35 mls/hr IV.SIG TITRATE PRN Rx#: [id number] Mycamine Inj 100 MG In NS Inj 100 / 100 100 ML @ 100 mls/hr IV.SIG Q24H [facility]EROY Rx#:[id number] Prostaphlin Inj 2 GM In NS Inj 200 / 200 200 / 200 200 / 200 100 ML @ 200 mls/hr IV.SIG Q4H LEROY Rx#:[id number] Oral 0 / 0 Tube Feeding 456 / 456 901 / 901 Tube Irrigant 200 / 200 30 / 30 Water Bolus Amount 0 / 0 Other 60 / 60 Rbc As-3 Leukoreduced Unit 60 / 60 [id number] Intake (Blood Product) Amt 0 / 0 400 / 400 Rbc As-3 Leukoreduced Unit 0 / 0 400 / 400 [id number] Bladder Irrigation Fluid - 60 / 60 Amount Retained Coude 60 / 60 Output: Urine 0 / 0 Stool 0 / 0 300 / 300 Pleural Fluid 0 / 0 Hemodialysis Amount 0 / 0 Urine Amount (Catheter) 25 / 25 300 / 300 Coude 300 / 300 Gastric Drainage 0 / 0 Orogastric Tube 0 / 0 Chest Tube Drainage 0 / 0 #1 Right Anterior 0 / 0 Other: Bladder Irrigation Fluid - Amount Instilled Coude 420 Bladder Irrigation Fluid - Amount Drained Coude 560 Other Intake Source Rbc As-3 Leukoreduced Unit Saline Solution [id number] Date of Last Bowel Movement 02/14/18 02/15/18 02/15/18 # Bowel Movements 0 # Incontinent Bowel Movements 0 Weight On Admission 113 kg - Urinary Catheter Management Coude Cath placed during this visit: no <Evelyn Chapin A - Last Filed: 02/15/18 16:06> Results - Labs CBC & Chem 7: 02/15/18 01:30 02/15/18 10:20 Laboratory Results - last 24 hr 02/10/18 02/14/18 02/14/18 14:19 13:00 17:30 WBC RBC Hgb Hct MCV MCH MCHC RDW Plt Count MPV PT INR APTT Fibrinogen Sodium Potassium Chloride Carbon Dioxide Anion Gap BUN Creatinine Estimated GFR POC Glucose 181 H Random Glucose Calcium Total Bilirubin AST ALT Alkaline Phosphatase Total Protein Albumin Urine Color Urine Clarity Urine pH Ur Specific [place] Urine Protein Urine Glucose (UA) Urine Ketones Urine Occult Blood Urine Nitrate Urine Bilirubin Urine Urobilinogen Ur Leukocyte Esterase Urine RBC Urine WBC Urine WBC Clumps Urine Bacteria Micro UA Comment Urine Culture Comments Urine Eosinophils Copper 79 MTS Gel Crossmatch See Detail 02/14/18 02/15/18 02/15/18 21:37 00:07 01:30 WBC 3.4 L RBC 2.43 L Hgb 7.4 L Hct 22.2 L MCV 91.5 MCH 30.5 MCHC 33.3 RDW 18.1 H Plt Count 133 L MPV 9.6 PT INR APTT Fibrinogen Sodium Potassium Chloride Carbon Dioxide Anion Gap BUN Creatinine Estimated GFR POC Glucose 201 H 285 H Random Glucose Calcium Total Bilirubin AST ALT Alkaline Phosphatase Total Protein Albumin Urine Color Urine Clarity Urine pH Ur Specific [place] Urine Protein Urine Glucose (UA) Urine Ketones Urine Occult Blood Urine Nitrate Urine Bilirubin Urine Urobilinogen Ur Leukocyte Esterase Urine RBC Urine WBC Urine WBC Clumps Urine Bacteria Micro UA Comment Urine Culture Comments Urine Eosinophils Copper MTS Gel Crossmatch 07/10/18 07/10/18 07/10/18 01:30 02:25 02:25 WBC RBC Hgb Hct MCV MCH MCHC RDW Plt Count MPV PT 11.4 INR 1.1 APTT 27.9 Fibrinogen 401 H Sodium Potassium Chloride Carbon Dioxide Anion Gap BUN Creatinine Estimated GFR POC Glucose Random Glucose Calcium Total Bilirubin AST ALT Alkaline Phosphatase Total Protein Albumin Urine Color Red Urine Clarity Cloudy H Urine pH 8.0 Ur Specific [place] 1.018 Urine Protein 500 or greater Urine Glucose (UA) 150 H Urine Ketones Negative Urine Occult Blood Large H Urine Nitrate Negative Urine Bilirubin Negative Urine Urobilinogen Less than 2 Ur Leukocyte Esterase Negative Urine RBC Urine WBC Urine WBC Clumps Many H Urine Bacteria Many H Micro UA Comment Cath-culture ind Urine Culture Comments Cath-cult indicated Urine Eosinophils None seen Copper MTS Gel Crossmatch 02/15/18 02/15/18 02/15/18 05:56 10:20 11:18 WBC RBC Hgb Hct MCV MCH MCHC RDW Plt Count MPV PT INR APTT Fibrinogen Sodium 144 Potassium 4.6 D Chloride 106 Carbon Dioxide 20.0 L Anion Gap 18 H BUN 71 H Creatinine 5.15 H Estimated GFR 12 L POC Glucose 137 H 165 H Random Glucose 159 H D Calcium 7.9 L D Total Bilirubin 3.6 H AST 52 H ALT 23 Alkaline Phosphatase 464 H Total Protein 5.6 L Albumin 1.5 L Urine Color Urine Clarity Urine pH Ur Specific [place] Urine Protein Urine Glucose (UA) Urine Ketones Urine Occult Blood Urine Nitrate Urine Bilirubin Urine Urobilinogen Ur Leukocyte Esterase Urine RBC Urine WBC Urine WBC Clumps Urine Bacteria Micro UA Comment Urine Culture Comments Urine Eosinophils Copper MTS Gel Crossmatch Microbiology 02/14/18 11:44 Sputum - Endotracheal Gram Stain - Final 02/14/18 11:44 Sputum - Endotracheal Sputum Culture - Preliminary Heavy growth normal respiratory km at 24 hours 02/14/18 10:10 Blood - Peripheral Aerobic Blood Culture - Preliminary No growth in 1 day 02/14/18 10:10 Blood - Peripheral Anaerobic Blood Culture - Preliminary No growth in 1 day 02/14/18 10:20 Blood - Peripheral Aerobic Blood Culture - Preliminary No growth in 1 day 02/14/18 10:20 Blood - Peripheral Anaerobic Blood Culture - Preliminary No growth in 1 day 02/11/18 04:50 Blood - Peripheral Aerobic Blood Culture - Preliminary No growth in 4 days 02/11/18 04:50 Blood - Peripheral Anaerobic Blood Culture - Preliminary No growth in 4 days 02/11/18 04:57 Blood - Peripheral Aerobic Blood Culture - Preliminary No growth in 4 days 02/11/18 04:57 Blood - Peripheral Anaerobic Blood Culture - Preliminary No growth in 4 days - Imaging Impressions Chest X-Ray 02/15/18 10:41 CONCLUSION: Persistent significant bilateral lung opacity characteristic of bilateral effusions with underlying airspace disease. No significant change since prior study. Stable supportive devices. <Brittany Willard M - Last Filed: 02/15/18 15:27> - Labs CBC & Chem 7: 02/15/18 01:30 02/15/18 10:20 Laboratory Results - last 24 hr 02/14/18 02/14/18 02/14/18 13:00 17:30 21:37 WBC RBC Hgb Hct MCV MCH MCHC RDW Plt Count MPV PT INR APTT Fibrinogen Sodium Potassium Chloride Carbon Dioxide Anion Gap BUN Creatinine Estimated GFR POC Glucose 181 H 201 H Random Glucose Calcium Total Bilirubin AST ALT Alkaline Phosphatase Total Protein Albumin Urine Color Urine Clarity Urine pH Ur Specific [place] Urine Protein Urine Glucose (UA) Urine Ketones Urine Occult Blood Urine Nitrate Urine Bilirubin Urine Urobilinogen Ur Leukocyte Esterase Urine RBC Urine WBC Urine WBC Clumps Urine Bacteria Micro UA Comment Urine Culture Comments Urine Eosinophils MTS Gel Crossmatch See Detail 02/15/18 02/15/18 02/15/18 00:07 01:30 01:30 WBC 3.4 L RBC 2.43 L Hgb 7.4 L Hct 22.2 L MCV 91.5 MCH 30.5 MCHC 33.3 RDW 18.1 H Plt Count 133 L MPV 9.6 PT 11.4 INR 1.1 APTT 27.9 Fibrinogen 401 H Sodium Potassium Chloride Carbon Dioxide Anion Gap BUN Creatinine Estimated GFR POC Glucose 285 H Random Glucose Calcium Total Bilirubin AST ALT Alkaline Phosphatase Total Protein Albumin Urine Color Urine Clarity Urine pH Ur Specific [place] Urine Protein Urine Glucose (UA) Urine Ketones Urine Occult Blood Urine Nitrate Urine Bilirubin Urine Urobilinogen Ur Leukocyte Esterase Urine RBC Urine WBC Urine WBC Clumps Urine Bacteria Micro UA Comment Urine Culture Comments Urine Eosinophils MTS Gel Crossmatch 02/15/18 02/15/18 02/15/18 02:25 02:25 05:56 WBC RBC Hgb Hct MCV MCH MCHC RDW Plt Count MPV PT INR APTT Fibrinogen Sodium Potassium Chloride Carbon Dioxide Anion Gap BUN Creatinine Estimated GFR POC Glucose 137 H Random Glucose Calcium Total Bilirubin AST ALT Alkaline Phosphatase Total Protein Albumin Urine Color Red Urine Clarity Cloudy H Urine pH 8.0 Ur Specific [place] 1.018 Urine Protein 500 or greater Urine Glucose (UA) 150 H Urine Ketones Negative Urine Occult Blood Large H Urine Nitrate Negative Urine Bilirubin Negative Urine Urobilinogen Less than 2 Ur Leukocyte Esterase Negative Urine RBC Urine WBC Urine WBC Clumps Many H Urine Bacteria Many H Micro UA Comment Cath-culture ind Urine Culture Comments Cath-cult indicated Urine Eosinophils None seen MTS Gel Crossmatch 02/15/18 02/15/18 10:20 11:18 WBC RBC Hgb Hct MCV MCH MCHC RDW Plt Count MPV PT INR APTT Fibrinogen Sodium 144 Potassium 4.6 D Chloride 106 Carbon Dioxide 20.0 L Anion Gap 18 H BUN 71 H Creatinine 5.15 H Estimated GFR 12 L POC Glucose 165 H Random Glucose 159 H D Calcium 7.9 L D Total Bilirubin 3.6 H AST 52 H ALT 23 Alkaline Phosphatase 464 H Total Protein 5.6 L Albumin 1.5 L Urine Color Urine Clarity Urine pH Ur Specific [place] Urine Protein Urine Glucose (UA) Urine Ketones Urine Occult Blood Urine Nitrate Urine Bilirubin Urine Urobilinogen Ur Leukocyte Esterase Urine RBC Urine WBC Urine WBC Clumps Urine Bacteria Micro UA Comment Urine Culture Comments Urine Eosinophils MTS Gel Crossmatch Microbiology 02/14/18 11:44 Sputum - Endotracheal Gram Stain - Final 02/14/18 11:44 Sputum - Endotracheal Sputum Culture - Preliminary Heavy growth normal respiratory km at 24 hours 02/14/18 10:10 Blood - Peripheral Aerobic Blood Culture - Preliminary No growth in 1 day 02/14/18 10:10 Blood - Peripheral Anaerobic Blood Culture - Preliminary No growth in 1 day 02/14/18 10:20 Blood - Peripheral Aerobic Blood Culture - Preliminary No growth in 1 day 02/14/18 10:20 Blood - Peripheral Anaerobic Blood Culture - Preliminary No growth in 1 day 02/11/18 04:50 Blood - Peripheral Aerobic Blood Culture - Preliminary No growth in 4 days 02/11/18 04:50 Blood - Peripheral Anaerobic Blood Culture - Preliminary No growth in 4 days 02/11/18 04:57 Blood - Peripheral Aerobic Blood Culture - Preliminary No growth in 4 days 02/11/18 04:57 Blood - Peripheral Anaerobic Blood Culture - Preliminary No growth in 4 days - Imaging Impressions Chest X-Ray 02/15/18 10:41 CONCLUSION: Persistent significant bilateral lung opacity characteristic of bilateral effusions with underlying airspace disease. No significant change since prior study. Stable supportive devices. <Evelyn Chapin - Last Filed: 02/15/18 16:06> Assessment and Plan (1) Anemia Status: Acute Code(s): D64.9 - Anemia, unspecified (2) Leukocytosis Status: Acute Code(s): D72.829 - Elevated white blood cell count, unspecified (3) Cholelithiasis Status: Acute Code(s): K80.20 - Calculus of gallbladder without cholecystitis without obstruction - Plan Assessment: - Elevated LFTs likely secondary to shocked liver in background of ETOH abuse LFTs from ER visit 01/26 AST-99 ALT-46 Alk phos-108 T bili-1.4 Returned on 02/02 AST-[id number] ALT-307 Alk phos-66 T bili-1.7 Pt found unresponsive at home with known history of ETOH abuse, on admission pt was in SVT with noted extreme hypotension and valve mechanic noted persistent hypotension and shock requiring Levo gtt. Unable to obtain history from pt because he is orally intubated, on sedation but awake. According to notes pt was drinking greater than a pint daily. Abdomen US (02/04) Prominent gallbladder with small stones and minimal gallbladder wall thickening. Patient is not tender over the gallbladder. Echogenic liver. Small right pleural effusion. CT abdomen and pelvis WO IV contrast (02/03) Moderate-sized right pleural effusion. Two calcifications in the expected region of the distal common bile duct or pancreatic head measuring 3 mm each. Bibasilar atelectasis and/or infiltrates which are slightly worse on the right than the left. Cardiomegaly. Left adrenal nodule measuring 2.6 x 2.3 cm consistent with probable adrenal adenoma or cyst. Small amount of ascites. Probable 2.3 cm right renal cyst. Liver Work up: Hepatitis panel negative. GARY negative. AAT-433 Ceruloplasmin-69 AFP-0.8 Iron-30 TIBC-126 %Sat-23.8 Ferritin-2246 MRCP --> No evidence of biliary obstruction - Thrombocytopenia- secondary to liver disease - Hypoalbuminemia- albumin 1.5 - pt on replacement - ANIBAL, rhabdomyolysis, obstructive uropathy, BPH- Pt on HD- nephorlogy following - Anemia, probable acute on chronic but need to rule out any source of bleeding when patient is stable (02/14) Pt remains intubated and sedated. Per RN, urology consult placed, obstruction and pt is unable to void. LFTs trending down. Abdomen distended and firm- will order US for possible paracentesis 02/15/2018 patient remains on ventilator support. And critically ill. Currently patient is not stable for any further procedures and questionable whether he will recover from his critical illness. GI will sign off for now please call if needed Plan Diet n.p.o. Xifaxan Diet, tube feeds Bowel regimen Needs alcohol abstinence Supportive care Patient has been seen and examined by myself and Dr. Chapin and this note is written on his behalf <Brittany Willard - Last Filed: 02/15/18 15:27> (1) Anemia Status: Acute Code(s): D64.9 - Anemia, unspecified (2) Leukocytosis Status: Acute Code(s): D72.829 - Elevated white blood cell count, unspecified (3) Cholelithiasis Status: Acute Code(s): K80.20 - Calculus of gallbladder without cholecystitis without obstruction - Attending Attestation As above, please notify us if needed again.. <Evelyn Chapin - Last Filed: 02/15/18 16:06>
--- NOTE | 2018-02-15 15:58 | P.PNNP ---
Subjective Interval history: Intubated, fiO2 at 40 %. Opens eyes spontaneously. <NathalieluizJeanna - Last Filed: 02/15/18 15:48> Physical Exam Vital signs: Vital Signs 02/14/18 16:00 02/14/18 17:50 02/14/18 17:57 Temperature 98.5 F Pulse Rate 66 66 63 Respiratory Rate 18 18 Blood Pressure 96/57 L Pulse Oximetry 99 02/14/18 18:02 02/14/18 19:00 02/14/18 20:00 Temperature 98.2 F Pulse Rate 67 67 Respiratory Rate 18 18 18 Blood Pressure 94/53 L 92/52 L Pulse Oximetry 96 94 L 02/14/18 21:00 02/14/18 21:21 02/14/18 22:00 Temperature Pulse Rate 63 63 67 Respiratory Rate 18 18 19 Blood Pressure 96/55 L 92/53 L Pulse Oximetry 94 L 99 94 L 02/14/18 23:00 02/15/18 00:00 02/15/18 01:00 Temperature 99.0 F Pulse Rate 68 67 69 Respiratory Rate 19 20 20 Blood Pressure 98/57 L 97/54 L 105/61 Pulse Oximetry 95 94 L 96 02/15/18 02:00 02/15/18 02:19 02/15/18 03:00 Temperature Pulse Rate 67 67 Respiratory Rate 19 20 19 Blood Pressure 101/58 L 101/58 L Pulse Oximetry 96 97 96 02/15/18 04:00 02/15/18 05:00 02/15/18 05:41 Temperature 98.4 F Pulse Rate 66 65 Respiratory Rate 19 27 H 21 Blood Pressure 94/52 L 95/56 L Pulse Oximetry 96 97 98 02/15/18 06:00 02/15/18 07:00 02/15/18 07:55 Temperature 98.5 F Pulse Rate 64 61 62 Respiratory Rate 20 18 18 Blood Pressure 101/61 107/60 107/60 Pulse Oximetry 98 97 02/15/18 08:00 02/15/18 10:00 02/15/18 11:46 Temperature Pulse Rate 63 65 Respiratory Rate 29 H 36 H Blood Pressure Pulse Oximetry 97 95 02/15/18 12:00 Temperature 98.3 F Pulse Rate 62 Respiratory Rate 18 Blood Pressure 107/60 Pulse Oximetry Intake & Output 02/14/18 02/15/18 02/15/18 18:59 06:59 18:59 Intake Total 1306 / 1306 1691 / 1691 1363 / 1363 Output Total 25 / 25 600 / 600 Balance 1281 / 1281 1091 / 1091 1363 / 1363 Weight 111.5 kg Intake: IV 650 / 650 700 / 700 903 / 903 Maxipime Inj 2,000 MG In NS Inj 100 / 100 100 ML @ 200 mls/hr IV.SIG Q24H [facility] Rx#:[id number] Teflaro Inj 600 MG In NS Inj 200 / 200 200 / 200 100 ML @ 100 mls/hr IV.SIG Q8H [facility] Rx#:[id number] Precedex Inj 1,000 MCG In NS 250 / 250 500 / 500 200 / 200 Inj 240 ML @ 0.2 MCG/KG/HR 5.35 mls/hr IV.SIG TITRATE PRN Rx#: [id number] Mycamine Inj 100 MG In NS Inj 100 / 100 100 ML @ 100 mls/hr IV.SIG Q24H [facility] Rx#:[id number] Prostaphlin Inj 2 GM In NS Inj 200 / 200 200 / 200 200 / 200 100 ML @ 200 mls/hr IV.SIG Q4H [facility] Rx#:[id number] Oral 0 / 0 Tube Feeding 456 / 456 901 / 901 Tube Irrigant 200 / 200 30 / 30 Water Bolus Amount 0 / 0 Other 60 / 60 Rbc As-3 Leukoreduced Unit 60 / 60 [id number] Intake (Blood Product) Amt 0 / 0 400 / 400 Rbc As-3 Leukoreduced Unit 0 / 0 400 / 400 [id number] Bladder Irrigation Fluid - 60 / 60 Amount Retained Coude 60 / 60 Output: Urine 0 / 0 Stool 0 / 0 300 / 300 Pleural Fluid 0 / 0 Hemodialysis Amount 0 / 0 Urine Amount (Catheter) 25 / 25 300 / 300 Coude 25 / 25 300 / 300 Gastric Drainage 0 / 0 Orogastric Tube 0 / 0 Chest Tube Drainage 0 / 0 #1 Right Anterior 0 / 0 Other: Bladder Irrigation Fluid - Amount Instilled Coude 420 Bladder Irrigation Fluid - Amount Drained Coude 560 Other Intake Source Rbc As-3 Leukoreduced Unit Saline Solution [id number] Date of Last Bowel Movement 02/14/18 02/15/18 02/15/18 # Bowel Movements 0 # Incontinent Bowel Movements 0 Weight On Admission 113 kg - Constitutional no acute distress - Routine HEENT Exam Head: Present: normocephalic - Routine Neck Exam Present: supple. Absent: JVD - Routine Respiratory Exam Present: patient mechanically ventilated, decreased breath sounds, rhonchi - Routine Cardiovascular Exam Present: RRR. Absent: murmur - Routine Abdominal Exam Present: soft, normoactive bowel sounds - Routine Exam Scrotal: Present: swelling - Routine Extremities Exam Present: edema, vascular access - Routine Skin Exam Present: dry, warm - Urinary Catheter Management Coude Cath placed during this visit: yes Urethral indwelling: Yes Reason for continuing: Other continuation reason Insertion date: 02/02/18 <Jeanna Franz - Last Filed: 02/15/18 15:48> Vital signs: Vital Signs 02/14/18 20:00 02/14/18 21:00 02/14/18 21:15 Temperature 98.2 F Pulse Rate 67 63 62 Respiratory Rate 18 18 18 Blood Pressure 92/52 L 96/55 L 103/58 L Pulse Oximetry 94 L 94 L 94 L 02/14/18 21:21 02/14/18 21:30 02/14/18 21:45 Temperature Pulse Rate 63 64 66 Respiratory Rate 18 18 19 Blood Pressure 96/54 L 91/50 L Pulse Oximetry 99 94 L 94 L 02/14/18 22:00 02/14/18 22:15 02/14/18 23:00 Temperature Pulse Rate 67 68 68 Respiratory Rate 19 19 19 Blood Pressure 92/53 L 96/55 L 98/57 L Pulse Oximetry 94 L 94 L 95 02/15/18 00:00 02/15/18 01:00 02/15/18 02:00 Temperature 99.0 F Pulse Rate 67 69 67 Respiratory Rate 20 24 19 Blood Pressure 97/54 L 105/61 101/58 L Pulse Oximetry 94 L 96 96 02/15/18 02:19 02/15/18 03:00 02/15/18 04:00 Temperature 98.4 F Pulse Rate 67 66 Respiratory Rate 20 19 19 Blood Pressure 101/58 L 94/52 L Pulse Oximetry 97 96 96 02/15/18 05:00 02/15/18 05:41 02/15/18 06:00 Temperature Pulse Rate 65 64 Respiratory Rate 27 H 21 20 Blood Pressure 95/56 L 101/61 Pulse Oximetry 97 98 98 02/15/18 07:00 02/15/18 07:55 02/15/18 08:00 Temperature 98.5 F Pulse Rate 61 62 63 Respiratory Rate 18 18 18 Blood Pressure 107/60 107/60 101/57 L Pulse Oximetry 97 97 02/15/18 09:00 02/15/18 10:00 02/15/18 11:00 Temperature Pulse Rate 65 65 68 Respiratory Rate 29 H 29 H 36 H Blood Pressure 94/55 L 100/55 L 97/56 L Pulse Oximetry 97 96 97 02/15/18 11:46 02/15/18 12:00 02/15/18 13:00 Temperature 98.3 F Pulse Rate 72 77 Respiratory Rate 36 H 39 H 39 H Blood Pressure 101/57 L 101/58 L Pulse Oximetry 95 95 95 02/15/18 14:00 02/15/18 15:00 02/15/18 15:56 Temperature Pulse Rate 82 80 Respiratory Rate 41 H 23 24 Blood Pressure 107/56 L 100/58 L Pulse Oximetry 95 95 96 02/15/18 16:00 02/15/18 17:00 02/15/18 18:00 Temperature Pulse Rate 83 84 90 Respiratory Rate 32 H 23 25 H Blood Pressure 134/74 112/59 L 119/64 Pulse Oximetry 95 96 94 L Intake & Output 02/15/18 02/15/18 02/16/18 06:59 18:59 06:59 Intake Total 1691 / 1691 2294 / 2294 Output Total 600 / 600 300 / 300 Balance 1091 / 1091 1993 / 1993 Weight 111.5 kg Intake: IV 700 / 700 903 / 903 Maxipime Inj 2,000 MG In NS Inj 100 / 100 100 ML @ 200 mls/hr IV.SIG Q24H [facility] Rx#:[id number] Teflaro Inj 600 MG In NS Inj 200 / 200 100 ML @ 100 mls/hr IV.SIG Q8H [facility] Rx#:[id number] Precedex Inj 1,000 MCG In NS 500 / 500 200 / 200 Inj 240 ML @ 0.2 MCG/KG/HR 5.35 mls/hr IV.SIG TITRATE PRN Rx#: [id number] Mycamine Inj 100 MG In NS Inj 100 / 100 100 ML @ 100 mls/hr IV.SIG Q24H [facility] Rx#:[id number] Prostaphlin Inj 2 GM In NS Inj 200 / 200 200 / 200 100 ML @ 200 mls/hr IV.SIG Q4H [facility] Rx#:[id number] Tube Feeding 901 / 901 901 / 901 Tube Irrigant 30 / 30 30 / 30 Other 60 / 60 Rbc As-3 Leukoreduced Unit 60 / 60 [id number] Intake (Blood Product) Amt 400 / 400 Rbc As-3 Leukoreduced Unit 400 / 400 [id number] Bladder Irrigation Fluid - 60 / 60 Amount Retained Coude 60 / 60 Output: Stool 300 / 300 300 / 300 Urine Amount (Catheter) 300 / 300 Coude 300 / 300 Other: Bladder Irrigation Fluid - Amount Instilled Coude 420 Bladder Irrigation Fluid - Amount Drained Coude 560 Other Intake Source Rbc As-3 Leukoreduced Unit Saline Solution [id number] Date of Last Bowel Movement 02/15/18 02/15/18 Weight On Admission 113 kg - Urinary Catheter Management Coude Cath placed during this visit: no <Melvi Edwards - Last Filed: 02/15/18 19:12> Assessment and Plan - Assessment (1) Acute renal failure (ARF) Code(s): N17.9 - Acute kidney failure, unspecified Status: Acute (2) Sepsis Code(s): A41.9 - Sepsis, unspecified organism Status: Acute (3) Respiratory failure Code(s): J96.90 - Respiratory failure, unspecified, unspecified whether with hypoxia or hypercapnia Status: Acute (4) Hypotension Code(s): I95.9 - Hypotension, unspecified Status: Acute Plan: Acute renal failure Anemia ICD Codes: N17.9 - Acute kidney failure, unspecified Plan: Patient has minimal UOP Initially on CRRT started on 02/04 for acute renal failure Vascath was removed, and re inserted. HD yesterday with removal of 3 liters. Continue antibiotics. Creatinine at 5.15 Will monitor urinary output, renal panel, and watch for renal recovery. Will continue hemodialysis on Wednesday/Wednesday/Wednesday Hemodialysis tomorrow. Respiratory failure Management per CC Anemia Respiratory failure Transfused Wednesday, HGb 7.4 Epogen added with dilaysis Sepsis ICD Codes: A41.9 - Sepsis, unspecified organism Plan: ID following EMILY negative, antibiotics per ID Rhabdomyolysis ICD Codes: M62.82 - Rhabdomyolysis Plan: Monitor CPK UTI (lower urinary tract infection) ICD Codes: N39.0 - Urinary tract infection, site not specified Plan: Patient has MSSA and ID is following Pneumonia ICD Codes: J18.9 - Pneumonia, unspecified organism Plan: Pleural effusion drained <Jeanna Franz - Last Filed: 02/15/18 15:48> - Assessment (1) Acute renal failure (ARF) Code(s): N17.9 - Acute kidney failure, unspecified Status: Acute (2) Sepsis Code(s): A41.9 - Sepsis, unspecified organism Status: Acute (3) Respiratory failure Code(s): J96.90 - Respiratory failure, unspecified, unspecified whether with hypoxia or hypercapnia Status: Acute (4) Hypotension Code(s): I95.9 - Hypotension, unspecified Status: Acute - Attending Attestation Patient seen and examined, agree with above. Has hematuria, catheter placed by urology. Creatinine still elevated, Continue HD as needed. <Melvi Edwards - Last Filed: 02/15/18 19:12>
--- NOTE | 2018-02-15 20:23 | P.PNURO ---
Subjective Patient symptoms today: Contacted by nurse for poorly draining Ennis catheter despite attempts to irrigate. Bladder scan demonstrated greater than 450 cc of urine. Objective Vital Signs: Vital Signs 02/14/18 21:00 02/14/18 21:15 02/14/18 21:21 Temperature Pulse Rate 63 62 63 Respiratory Rate 18 18 18 Blood Pressure 96/55 L 103/58 L Pulse Oximetry 94 L 94 L 99 02/14/18 21:30 02/14/18 21:45 02/14/18 22:00 Temperature Pulse Rate 64 66 67 Respiratory Rate 18 19 19 Blood Pressure 96/54 L 91/50 L 92/53 L Pulse Oximetry 94 L 94 L 94 L 02/14/18 22:15 02/14/18 23:00 02/15/18 00:00 Temperature 99.0 F Pulse Rate 68 68 67 Respiratory Rate 19 19 20 Blood Pressure 96/55 L 98/57 L 97/54 L Pulse Oximetry 94 L 95 94 L 02/15/18 01:00 02/15/18 02:00 02/15/18 02:19 Temperature Pulse Rate 69 67 Respiratory Rate 24 19 20 Blood Pressure 105/61 101/58 L Pulse Oximetry 96 96 97 02/15/18 03:00 02/15/18 04:00 02/15/18 05:00 Temperature 98.4 F Pulse Rate 67 66 65 Respiratory Rate 19 19 27 H Blood Pressure 101/58 L 94/52 L 95/56 L Pulse Oximetry 96 96 97 02/15/18 05:41 02/15/18 06:00 02/15/18 07:00 Temperature Pulse Rate 64 61 Respiratory Rate 21 20 18 Blood Pressure 101/61 107/60 Pulse Oximetry 98 98 97 02/15/18 07:55 02/15/18 08:00 02/15/18 09:00 Temperature 98.5 F Pulse Rate 62 63 65 Respiratory Rate 18 18 29 H Blood Pressure 107/60 101/57 L 94/55 L Pulse Oximetry 97 97 02/15/18 10:00 02/15/18 11:00 02/15/18 11:46 Temperature Pulse Rate 65 68 Respiratory Rate 29 H 36 H 36 H Blood Pressure 100/55 L 97/56 L Pulse Oximetry 96 97 95 02/15/18 12:00 02/15/18 13:00 02/15/18 14:00 Temperature 98.3 F Pulse Rate 72 77 82 Respiratory Rate 39 H 39 H 41 H Blood Pressure 101/57 L 101/58 L 107/56 L Pulse Oximetry 95 95 95 02/15/18 15:00 02/15/18 15:56 02/15/18 16:00 Temperature Pulse Rate 80 83 Respiratory Rate 23 24 32 H Blood Pressure 100/58 L 134/74 Pulse Oximetry 95 96 95 02/15/18 17:00 02/15/18 18:00 Temperature Pulse Rate 84 90 Respiratory Rate 23 25 H Blood Pressure 112/59 L 119/64 Pulse Oximetry 96 94 L Intake & Output 02/15/18 02/15/18 02/16/18 06:59 18:59 06:59 Intake Total 1691 / 1691 2047 / 2047 Output Total 600 / 600 900 / 900 Balance 1091 / 1091 1147 / 1147 Weight 111.5 kg Intake: IV 700 / 700 1003 / 1003 Maxipime Inj 2,000 MG In NS Inj 100 / 100 100 ML @ 200 mls/hr IV.SIG Q24H [facility] Rx#:[id number] Teflaro Inj 600 MG In NS Inj 200 / 200 100 ML @ 100 mls/hr IV.SIG Q8H [facility] Rx#:[id number] Precedex Inj 1,000 MCG In NS 500 / 500 200 / 200 Inj 240 ML @ 0.2 MCG/KG/HR 5.35 mls/hr IV.SIG TITRATE PRN Rx#: [id number] Mycamine Inj 100 MG In NS Inj 100 / 100 100 ML @ 100 mls/hr IV.SIG Q24H [facility] Rx#:[id number] Prostaphlin Inj 2 GM In NS Inj 200 / 200 300 / 300 100 ML @ 200 mls/hr IV.SIG Q4H [facility] Rx#:[id number] Tube Feeding 901 / 901 504 / 504 Tube Irrigant 30 / 30 30 / 30 Other 60 / 60 Rbc As-3 Leukoreduced Unit 60 / 60 [id number] Intake (Blood Product) Amt 400 / 400 Rbc As-3 Leukoreduced Unit 400 / 400 [id number] Bladder Irrigation Fluid - 60 / 60 50 / 50 Amount Retained Coude 60 / 60 50 / 50 Output: Urine 600 / 600 Stool 300 / 300 300 / 300 Urine Amount (Catheter) 300 / 300 Coude 300 / 300 Other: Bladder Irrigation Fluid - Amount Instilled Coude 420 650 Bladder Irrigation Fluid - Amount Drained Coude 560 600 Other Intake Source Rbc As-3 Leukoreduced Unit Saline Solution [id number] Date of Last Bowel Movement 02/15/18 02/15/18 Weight On Admission 113 kg Result Diagrams: 02/15/18 01:30 02/15/18 10:20 Other Results: [address] without any output despite attempts to irrigate. Bladder moderately distended. Imaging: Impressions Chest X-Ray 02/15/18 10:41 CONCLUSION: Persistent significant bilateral lung opacity characteristic of bilateral effusions with underlying airspace disease. No significant change since prior study. Stable supportive devices. Procedures: Ennis catheter replaced with a 20 [place]ian silicone Ennis however this did not alleviate the retention despite attempts to irrigate. The Ennis was then upsized to a 26 [place]ian catheter with evacuation greater than 350 cc medium red urine with multiple small clots. Medications and IVs: Active Medications Generic Name Dose Route Start Last Admin Trade Name Freq PRN Reason Stop Dose Admin Albuterol 1 ampul 02/06/18 00:00 02/14/18 21:20 Duoneb Neb (Prn) NEB 1 ampul Q2HR NEB PRN Administration WHEEZING Bisacodyl 10 mg 02/12/18 09:00 02/15/18 09:22 Dulcolax Supp RECTAL Not Given DAILY [facility] Chlorhexidine Gluconate 15 ml 02/06/18 08:00 02/15/18 09:22 Peridex 0.12% Oral Kit OROPHARYNG 15 ml BID@0800,2000 [facility] Administration Chlorhexidine Gluconate 3 pack 02/06/18 00:00 Chlorhexidine 2% Cloth TOPICAL UNSCH PRN HYGIENIC CARE Clonidine HCl 0.1 mg 02/06/18 13:57 Catapres PO UNSCH PRN SEE LABEL COMMENTS Dextrose 50 ml 02/10/18 14:22 D50w Vial IV.PUSH UNSCH PRN PER HYPOGLYCEMIA PROTOCOL Diltiazem HCl 60 mg 02/10/18 18:00 02/13/18 08:10 Cardizem PO Not Given QID [facility] Epoetin Ulysses 10,000 unit 02/15/18 16:00 Epogen Inj SQ WITH DIALYSIS [facility] Gelatin 1 foam 02/06/18 13:57 Gelfoam 12 Mm/7 Mm Topical TOPICAL PRN PRN help stop bleeding from site Gentamicin Sulfate 20 mg 02/06/18 13:57 02/14/18 16:30 Gentamicin Inj OTHER 20 mg WITH DIALYSIS PRN Administration Dwell Gentamycin Lock Glucagon 1 mg 02/10/18 14:22 Glucagon Inj OTHER PRN PRN for Hypoglycemia Protocol Heparin Sodium (Porcine) 1,000 units 02/06/18 13:57 02/14/18 16:31 Heparin Inj OTHER 1,000 units WITH DIALYSIS PRN Administration Dwell Heparin to Fill Catheter Heparin Sodium (Porcine) 8,000 units 02/06/18 00:00 Heparin Inj IV.PUSH WITH DIALYSIS PRN WITH DIALYSIS Sodium Chloride 1,000 mls @ 0 mls/hr 02/06/18 13:57 Ns Inj IV.CONT .Q0M PRN hypotension / volume replace As Directed Sodium Chloride 1,000 mls @ 0 mls/hr 02/06/18 13:57 Ns Inj OTHER .Q0M PRN for prime and rinse back As Directed Oxacillin Sodium 2 gm/ Sodium 100 mls @ 200 mls/hr 02/06/18 18:00 02/15/18 19 :36 Chloride IV.SIG 200 mls/hr Q4H [facility] Administration Cefepime HCl 2,000 mg/ Sodium 100 mls @ 200 mls/hr 02/06/18 18:00 02/15/18 19 :36 Chloride IV.SIG 100 mls/hr Q24H [facility] Administration Albumin Human 100 mls @ 60 mls/hr 02/07/18 12:00 02/11/18 08:06 Flexbumin 25% Inj IV.SIG Infused WITH DIALYSIS [facility] Infusion Ceftaroline Fosamil 600 mg/ 100 mls @ 100 mls/hr 02/07/18 16:00 02/15/18 16: 09 Sodium Chloride IV.SIG 200 mls/hr Q8H [facility] Administration Micafungin Sodium 100 mg/ 100 mls @ 100 mls/hr 02/14/18 20:00 02/15/18 07:07 Sodium Chloride IV.SIG Infused Q24H [facility] Infusion Sodium Chloride 1,000 mls @ 0 mls/hr 02/06/18 00:00 Ns Inj IV.SIG .Q0M PRN SEE LABEL COMMENTS As Directed Protamine Sulfate 25 mg/ 252.5 mls @ 5 mls/hr 02/06/18 00:00 Sodium Chloride IV.CONT TITRATE PRN HEPARINIZATION PROTOCOL Heparin Sodium/Dextrose 25,000 unit in 250 mls @ 0 mls/hr 02/06/18 00:00 Heparin/D5w 25,000 U/250 Ml IV.CONT TITRATE PRN PROTOCOL Protocol Per Protocol Insulin Aspart 0 unit 02/10/18 18:00 02/15/18 19:36 Novolog Insulin Suppl Scale Inj SQ Not Given Q6HR [facility] Protocol Insulin Detemir 10 unit 02/14/18 21:00 02/15/18 09:23 Levemir Inj SQ 10 unit BID [facility] Administration Mannitol 12.5 gm 02/06/18 13:57 02/11/18 07:08 Mannitol Inj IV.PUSH 12.5 gm PRN PRN Administration hypotension / volume replace Miscellaneous Information 0 each 02/06/18 00:00 Mis Nursing Information OTHER UNSCH [facility] Miscellaneous Information 1 each 01/27/19 00:00 Mis Information OTHER Q361D [facility] Multivitamins 1 tab 02/06/18 09:00 02/15/18 09:24 Theragran PO 1 tab DAILY [facility] Administration Nitroglycerin 0.4 mg 02/06/18 13:57 Nitrostat Sl SL Q5M PRN CHEST PAIN Ondansetron HCl 4 mg 02/06/18 00:00 Zofran Odt PO Q6H PRN NAUSEA OR VOMITING Pantoprazole Sodium 40 mg 02/06/18 09:00 02/15/18 09:23 Protonix Inj IV.PUSH 40 mg DAILY [facility] Administration Rifaximin 550 mg 02/11/18 21:00 02/15/18 09:24 Xifaxan PO 550 mg Q12HR [facility] Administration Sodium Chloride 2 ml 02/06/18 00:00 02/14/18 10:14 Ns Flush IV.FLUSH 2 ml UNSCH PRN Administration FLUSH AFTER USING IV ACCESS Thiamine HCl 100 mg 02/06/18 09:00 02/15/18 09:24 Vitamin B1 PO 100 mg DAILY [facility] Administration Objective Remarks: Intubated RRR Ennis is in place Assessment and Plan - Assessment (1) Gross hematuria Code(s): R31.0 - Gross hematuria Status: Acute - Plan Continue care and current management plan as per primary team No additional intervention needed Perform bladder scan 1-2 times a day and if retaining > 300cc RN can irrigate and drain urine manually with 60cc syringe Urology remains available as needed Further urologic management as per recommendations listed above.
[2018-02-16] MEDS: Insulin NovoLOG Aspart Correctional Sugar Inj SQ SCH ×4 (00:40→21:07)
[2018-02-16] MEDS ORDERED: Morphine Inj 4 MG/ML Vial IV.PUSH PRN (02:43)
[2018-02-16 04:42] LABS: Eos % (Auto) 0.3 % (0.0-4.0); Lymph # (Auto) 0.4 th/mm3 (1.0-4.8); Lymph % (Auto) 8.6 % (9.0-44.0); Mean Corpuscular HGB Conc 32.9 % (32.0-36.0); Mean Corpuscular Hemoglobin 30.4 pg (27.0-34.0); Mean Corpuscular Volume 92.2 fL (80.0-100.0); Mean Platelet Volume 9.8 fL (7.0-11.0); Mono # (Auto) 0.4 th/mm3 (0.0-0.9); Mono % (Auto) 8.1 % (0.0-8.0); Neut # (Auto) 4.1 th/mm3 (1.8-7.7); Platelet Count 166 th/mm3 (150-450); Red Blood Count 2.05 mil/mm3 (4.50-5.90); Red Cell Distribution Width 18.7 % (11.6-17.2)
[2018-02-16 04:50] LABS: Hematocrit 18.9 % (39.0-51.0); Hemoglobin 6.2 gm/dL (13.0-17.0)
[2018-02-16 04:57] LABS: Activated Partial Thrombo Time 28.7 sec (24.3-30.1); INR 1.1 Ratio; Prothrombin Time 11.4 sec (9.8-11.6)
[2018-02-16 05:09] LABS: Calcium 7.9 mg/dL (8.5-10.1); Carbon Dioxide 18.5 meq/L (21.0-32.0); Magnesium 2.4 mg/dL (1.5-2.5); Potassium 4.3 meq/L (3.5-5.1)
[2018-02-16 05:29] LABS: Stomatocytes 1+
--- NOTE | 2018-02-16 08:53 | P.PNCA ---
<RikiBrianda N - Last Filed: 02/16/18 08:47> Subjective Interval history: Pt intubated, opens eyes to voice. No acute distress noted. Physical Exam Vital signs: Vital Signs 02/15/18 09:00 02/15/18 10:00 02/15/18 11:00 Temperature Pulse Rate 65 65 68 Respiratory Rate 29 H 29 H 36 H Blood Pressure 94/55 L 100/55 L 97/56 L Pulse Oximetry 97 96 97 02/15/18 11:46 02/15/18 12:00 02/15/18 13:00 Temperature 98.3 F Pulse Rate 72 77 Respiratory Rate 36 H 39 H 39 H Blood Pressure 101/57 L 101/58 L Pulse Oximetry 95 95 95 02/15/18 14:00 02/15/18 15:00 02/15/18 15:56 Temperature Pulse Rate 82 80 Respiratory Rate 41 H 23 24 Blood Pressure 107/56 L 100/58 L Pulse Oximetry 95 95 96 02/15/18 16:00 02/15/18 17:00 02/15/18 18:00 Temperature Pulse Rate 83 84 90 Respiratory Rate 32 H 23 25 H Blood Pressure 134/74 112/59 L 119/64 Pulse Oximetry 95 96 94 L 02/15/18 20:00 02/15/18 21:00 02/15/18 21:02 Temperature 100.5 F H Pulse Rate 96 H 97 H Respiratory Rate 20 21 27 H Blood Pressure 115/77 125/67 Pulse Oximetry 97 97 96 02/15/18 22:00 02/15/18 23:00 02/16/18 00:00 Temperature 99.9 F H Pulse Rate 93 H 93 H 91 H Respiratory Rate 23 23 24 Blood Pressure 114/64 120/63 107/59 L Pulse Oximetry 96 97 95 02/16/18 00:58 02/16/18 01:00 02/16/18 01:05 Temperature Pulse Rate 90 88 Respiratory Rate 20 22 20 Blood Pressure 114/62 Pulse Oximetry 99 97 02/16/18 02:00 02/16/18 03:00 02/16/18 04:00 Temperature 98.9 F Pulse Rate 86 86 86 Respiratory Rate 25 H 21 23 Blood Pressure 108/58 L 113/62 107/59 L Pulse Oximetry 95 97 97 02/16/18 05:00 02/16/18 05:46 02/16/18 06:00 Temperature Pulse Rate 82 84 Respiratory Rate 20 21 22 Blood Pressure 110/60 108/63 Pulse Oximetry 97 98 98 02/16/18 06:20 Temperature 98.8 F Pulse Rate 80 Respiratory Rate 22 Blood Pressure 104/61 Pulse Oximetry 98 Intake & Output 02/15/18 02/16/18 02/16/18 18:59 06:59 18:59 Intake Total 2147 / 2147 1150 / 1150 Output Total 900 / 900 800 / 800 Balance 1247 / 1247 350 / 350 Weight 111.5 kg Intake: IV 1103 / 1103 300 / 300 Maxipime Inj 2,000 MG In NS Inj 100 / 100 100 ML @ 200 mls/hr IV.SIG Q24H LEROY Rx#:[id number] Teflaro Inj 600 MG In NS Inj 300 / 300 100 ML @ 100 mls/hr IV.SIG Q8H LEROY Rx#:[id number] Precedex Inj 1,000 MCG In NS 200 / 200 Inj 240 ML @ 0.2 MCG/KG/HR 5.35 mls/hr IV.SIG TITRATE PRN Rx#: [id number] Mycamine Inj 100 MG In NS Inj 100 / 100 100 ML @ 100 mls/hr IV.SIG Q24H LEROY Rx#:[id number] Prostaphlin Inj 2 GM In NS Inj 300 / 300 300 / 300 100 ML @ 200 mls/hr IV.SIG Q4H LEROY Rx#:[id number] Tube Feeding 504 / 504 730 / 730 Tube Irrigant 30 / 30 60 / 60 Other 60 / 60 Rbc As-3 Leukoreduced Unit 60 / 60 [id number] Intake (Blood Product) Amt 400 / 400 0 / 0 Rbc As-3 Leukoreduced Unit 0 / 0 [id number] Rbc As-3 Leukoreduced Unit 400 / 400 [id number] Bladder Irrigation Fluid - 50 / 50 60 / 60 Amount Retained Coude 50 / 50 Indwelling Urethral Catheter 60 / 60 Output: Urine 600 / 600 Stool 300 / 300 600 / 600 Urine Amount (Catheter) 200 / 200 Indwelling Urethral Catheter 200 / 200 Other: Bladder Irrigation Fluid - Amount Instilled Coude 650 Indwelling Urethral Catheter 360 Bladder Irrigation Fluid - Amount Drained Coude 600 Indwelling Urethral Catheter 300 Other Intake Source Rbc As-3 Leukoreduced Unit Saline Solution [id number] Date of Last Bowel Movement 02/15/18 02/16/18 - Constitutional no acute distress - Routine HEENT Exam Head: Present: normocephalic Eye: Present: PERRL ENT: Present: mucous membranes moist - Routine Respiratory Exam Present: patient mechanically ventilated, rhonchi Comments: rhonchi noted throughout all lobes. - Routine Cardiovascular Exam Present: RRR - Routine Abdominal Exam Present: soft - Routine Extremities Exam Present: edema, pulses intact Comments: Pt has 3+ edema bilateral LE. - Routine Neurological Exam Pt opens eyes to voice but does not follow any commands. - Detailed Neurological Exam: Coma Scale Eye Opening: To sound Verbal Response: None Motor Response: None Rona Coma Scale Total: 5 - Urinary Catheter Management Coude Cath placed during this visit: yes, but has since been removed by the nurse Urethral indwelling: Yes Reason for continuing: Acute urinary retention Insertion date: 02/02/18 Removal date: 02/15/18 Removal time: 19:45 Indwelling Urethral Catheter Cath placed during this visit: yes Reason for continuing: Acute urinary retention Insertion date: 02/15/18 Insertion time: 20:00 Assessment and Plan - Assessment (1) Encephalopathy Code(s): G93.40 - Encephalopathy, unspecified Status: Acute (2) Septic shock Code(s): A41.9 - Sepsis, unspecified organism; R65.21 - Severe sepsis with septic shock Status: Acute (3) Atrial flutter Code(s): I48.92 - Unspecified atrial flutter Status: Acute (4) ANIBAL (acute kidney injury) Code(s): N17.9 - Acute kidney failure, unspecified Status: Acute (5) Respiratory failure Code(s): J96.90 - Respiratory failure, unspecified, unspecified whether with hypoxia or hypercapnia Status: Acute - Plan No cardiac events noted per tele. SR on monitor, VSS. Pt currently receiving a blood transfusion for a Hgb of 6.2. Continue with current cardiac treatment plan. The patient was seen and evaluated by Dr. Delcid who participated in care, management and decision making. <Kellen Delcid - Last Filed: 02/16/18 15:10> Physical Exam Vital signs: Vital Signs 02/15/18 15:56 02/15/18 16:00 02/15/18 17:00 Temperature Pulse Rate 83 84 Respiratory Rate 24 32 H 23 Blood Pressure 134/74 112/59 L Pulse Oximetry 96 95 96 02/15/18 18:00 02/15/18 20:00 02/15/18 21:00 Temperature 100.5 F H Pulse Rate 90 96 H 97 H Respiratory Rate 25 H 20 21 Blood Pressure 119/64 115/77 125/67 Pulse Oximetry 94 L 97 97 02/15/18 21:02 02/15/18 22:00 02/15/18 23:00 Temperature Pulse Rate 93 H 93 H Respiratory Rate 27 H 23 23 Blood Pressure 114/64 120/63 Pulse Oximetry 96 96 97 02/16/18 00:00 02/16/18 00:58 02/16/18 01:00 Temperature 99.9 F H Pulse Rate 91 H 90 Respiratory Rate 24 20 22 Blood Pressure 107/59 L 114/62 Pulse Oximetry 95 99 97 02/16/18 01:05 02/16/18 02:00 02/16/18 03:00 Temperature Pulse Rate 88 86 86 Respiratory Rate 20 25 H 21 Blood Pressure 108/58 L 113/62 Pulse Oximetry 95 97 02/16/18 04:00 02/16/18 05:00 02/16/18 05:46 Temperature 98.9 F Pulse Rate 86 82 Respiratory Rate 23 20 21 Blood Pressure 107/59 L 110/60 Pulse Oximetry 97 97 98 02/16/18 06:00 02/16/18 06:20 02/16/18 07:00 Temperature 98.8 F 98.1 F Pulse Rate 84 80 80 Respiratory Rate 22 22 22 Blood Pressure 108/63 104/61 115/63 Pulse Oximetry 98 98 94 L 02/16/18 08:00 02/16/18 09:52 02/16/18 11:39 Temperature 98.2 F Pulse Rate 78 Respiratory Rate 27 H 28 H 24 Blood Pressure 115/63 Pulse Oximetry 94 L 96 94 L Intake & Output 02/15/18 02/16/18 02/16/18 18:59 06:59 18:59 Intake Total 2147 / 2147 1250 / 1250 400 / 400 Output Total 900 / 900 800 / 800 3500 / 3500 Balance 1247 / 1247 450 / 450 -3100 / -3100 Weight 245 lb 13.047 oz Intake: IV 1103 / 1103 400 / 400 Maxipime Inj 2,000 MG In NS Inj 100 / 100 100 ML @ 200 mls/hr IV.SIG Q24H LEROY Rx#:[id number] Teflaro Inj 600 MG In NS Inj 300 / 300 100 ML @ 100 mls/hr IV.SIG Q8H LEROY Rx#:[id number] Precedex Inj 1,000 MCG In NS 200 / 200 Inj 240 ML @ 0.2 MCG/KG/HR 5.35 mls/hr IV.SIG TITRATE PRN Rx#: [id number] Mycamine Inj 100 MG In NS Inj 100 / 100 100 ML @ 100 mls/hr IV.SIG Q24H LEROY Rx#:[id number] Prostaphlin Inj 2 GM In NS Inj 300 / 300 400 / 400 100 ML @ 200 mls/hr IV.SIG Q4H LEROY Rx#:[id number] Tube Feeding 504 / 504 730 / 730 Tube Irrigant 30 / 30 60 / 60 Other 60 / 60 Rbc As-3 Leukoreduced Unit 60 / 60 [id number] Intake (Blood Product) Amt 400 / 400 0 / 0 400 / 400 Rbc As-3 Leukoreduced Unit 0 / 0 400 / 400 [id number] Rbc As-3 Leukoreduced Unit 400 / 400 [id number] Bladder Irrigation Fluid - 50 / 50 60 / 60 Amount Retained Coude 50 / 50 Indwelling Urethral Catheter 60 / 60 Output: Urine 600 / 600 Stool 300 / 300 600 / 600 Hemodialysis Amount 3500 / 3500 Urine Amount (Catheter) 200 / 200 Indwelling Urethral Catheter 200 / 200 Other: Bladder Irrigation Fluid - Amount Instilled Coude 650 Indwelling Urethral Catheter 360 Bladder Irrigation Fluid - Amount Drained Coude 600 Indwelling Urethral Catheter 300 Other Intake Source Rbc As-3 Leukoreduced Unit Saline Solution [id number] Date of Last Bowel Movement 02/15/18 02/16/18 02/16/18 - Urinary Catheter Management Coude Cath placed during this visit: no Indwelling Urethral Catheter Cath placed during this visit: no Assessment and Plan - Assessment (1) Encephalopathy Code(s): G93.40 - Encephalopathy, unspecified Status: Acute (2) Septic shock Code(s): A41.9 - Sepsis, unspecified organism; R65.21 - Severe sepsis with septic shock Status: Acute (3) Atrial flutter Code(s): I48.92 - Unspecified atrial flutter Status: Acute (4) ANIBAL (acute kidney injury) Code(s): N17.9 - Acute kidney failure, unspecified Status: Acute (5) Respiratory failure Code(s): J96.90 - Respiratory failure, unspecified, unspecified whether with hypoxia or hypercapnia Status: Acute - Attending Attestation Patient seen and examined. I reviewed and agree with the findings and plan presented. Recommend palliative care and the consideration of care withdrawal.
[2018-02-16] MEDS: Heparin 10,000 UNITS/10 ML Vial (for IV use) OTHER PRN (08:59)
--- NOTE | 2018-02-16 09:59 | P.PNCC ---
Subjective Subjective Remarks/Hospital Course: 02/05: This is a 57-year-old male with a strong history of EtOH abuse, his family states that he drinks greater than a pint today times at least 25 years. He was found unresponsive at home this afternoon. The last time he was seen normal was 5 days ago. He was brought in by EMS and was severely altered. He was intubated for acute hypoxemia and hypercarbia. He was also in a supraventricular tachycardia with a heart rate greater than 200. In the emergency department he was electrically cardioverted 2 without success, and given 5 mill grams of IV Lopressor which caused severe hypotension, but did not resolve his tachycardia. Immediately upon being notified went down to the emergency department evaluated the patient and transported him up to the intensive care unit. Once in the intensive care unit, I placed arterial and central lines, see separate procedure note for details. I loaded the patient with 150 mg of amiodarone and 2 g magnesium. In addition, the patient has a blood gas with severe metabolic acidosis and a pH less than 7.2. I gave 4 A of sodium bicarbonate as well as 1 g of calcium chloride for severe hypocalcemia. After these interventions, the patient spontaneously converted to a sinus tachycardia. The patient was placed on norepinephrine for persistent hypotension and shock. The emergency department attempted to place a 16 Congolese Ennis catheter and was unsuccessful with this. I attempted an additional time to place both an 18 Congolese coud catheter as well as a 24 Congolese three-way catheter, both which were unsuccessful and met significant resistance at approximately 10-12 cm. I consulted urology and discussed the case with Dr. Worley who agrees to Place Ennis catheter tonight for emergent urine output monitoring while in shock. The patient remains altered no additional information is available from patient. ROS is unobtainable. 02/03 Patient is intubated on Levoped 5 mics, Amio and bicarb drips. 16Fr catheter was placed by Urology. 02/04 Patient remains intubated and sedated with Diprivan. Off Levophed on Neosyn 60mics. Right sided pig tail catheter placed yesterday with removal 1100ml cloudy fluid fluid analysis c/w empyema. Renal function declining with Cr: 5.87 and UOP 120ml in 12 hrs. Tmax 102.2 02/05: remains intubated and critically ill. on CVVHD. per RN, net -300/hr on CVVHD. off vasopressors this AM. 02/06: Remains sedated, orally intubated on mechanical ventilation. CRRT clotted off last night. Nephrology planning HD 02/07 Patient remains intubated and sedated with Fentanyl infusion. Off Neosyn remains on Vasopressin and Amio drip. T;102 last night. 02/08 No events overnight. Intubated and on Fentanyl infusion for sedation. Afebrile. Off all pressors. s/p HD yesterday. On Amio drip. 02/09 Patient remains sedated and intubated. For HD today. On Amio drip, T:101.3 last night. 02/10 No events overnight. Sedated with Diprivan and Fentanyl drips. Afebrile. For possible EMILY today. 02/11 Patient remains intubated and sedated. Tmax 100.1. MRCP yesterday no biliary obstruction. On Amio drip. 02/12 Patient remains intubated, now on Precedex drip, Off Diprivan and Fentanyl drip. Tmax:99.7 02/13 No events overnight. Off Diprivan and Fentanyl drips on Precedex drip 0.5. Afebrile. 02/14: Remains on 1.5 mcg/kg/hr of Precedex, No spontaneous eye opening, do not follow commands. Urology reconsulted for persistent retention 02/15: Remains critical. Currently on 7 mcg/kg/h of Precedex. Follows simple commands for the RN not reproducible to me. Urology reconsulted for retentions. Had HD yesterday. No fever in the last 24 hours. Currently on CPAP slightly tachypneic 02/16: Patient remains lethargic encephalopathic critical. Despite upsizing Ennis to 26 Congolese, patient continues to have hematuria and urinary retention. Hemoglobin dropped to 6.[address] Jones, urology planning for OR intervention today. Hemoglobin dropped to 6.2 getting 1 unit PRBC Objective Vital Signs / I&O: Vital Signs 02/15/18 10:00 02/15/18 11:00 02/15/18 11:46 Temperature Pulse Rate 65 68 Respiratory Rate 29 H 36 H 36 H Blood Pressure 100/55 L 97/56 L Pulse Oximetry 96 97 95 02/15/18 12:00 02/15/18 13:00 02/15/18 14:00 Temperature 98.3 F Pulse Rate 72 77 82 Respiratory Rate 39 H 39 H 41 H Blood Pressure 101/57 L 101/58 L 107/56 L Pulse Oximetry 95 95 95 02/15/18 15:00 02/15/18 15:56 02/15/18 16:00 Temperature Pulse Rate 80 83 Respiratory Rate 23 24 32 H Blood Pressure 100/58 L 134/74 Pulse Oximetry 95 96 95 02/15/18 17:00 02/15/18 18:00 02/15/18 20:00 Temperature 100.5 F H Pulse Rate 84 90 96 H Respiratory Rate 23 25 H 20 Blood Pressure 112/59 L 119/64 115/77 Pulse Oximetry 96 94 L 97 02/15/18 21:00 02/15/18 21:02 02/15/18 22:00 Temperature Pulse Rate 97 H 93 H Respiratory Rate 21 27 H 23 Blood Pressure 125/67 114/64 Pulse Oximetry 97 96 96 02/15/18 23:00 02/16/18 00:00 02/16/18 00:58 Temperature 99.9 F H Pulse Rate 93 H 91 H Respiratory Rate 23 24 20 Blood Pressure 120/63 107/59 L Pulse Oximetry 97 95 99 02/16/18 01:00 02/16/18 01:05 02/16/18 02:00 Temperature Pulse Rate 90 88 86 Respiratory Rate 22 20 25 H Blood Pressure 114/62 108/58 L Pulse Oximetry 97 95 02/16/18 03:00 02/16/18 04:00 02/16/18 05:00 Temperature 98.9 F Pulse Rate 86 86 82 Respiratory Rate 21 23 20 Blood Pressure 113/62 107/59 L 110/60 Pulse Oximetry 97 97 97 02/16/18 05:46 02/16/18 06:00 02/16/18 06:20 Temperature 98.8 F Pulse Rate 84 80 Respiratory Rate 21 22 22 Blood Pressure 108/63 104/61 Pulse Oximetry 98 98 98 Intake & Output 02/15/18 02/16/18 02/16/18 18:59 06:59 18:59 Intake Total 2147 / 2147 1150 / 1150 Output Total 900 / 900 800 / 800 Balance 1247 / 1247 350 / 350 Weight 111.5 kg Intake: IV 1103 / 1103 300 / 300 Maxipime Inj 2,000 MG In NS Inj 100 / 100 100 ML @ 200 mls/hr IV.SIG Q24H LEROY Rx#:[id number] Teflaro Inj 600 MG In NS Inj 300 / 300 100 ML @ 100 mls/hr IV.SIG Q8H LEROY Rx#:[id number] Precedex Inj 1,000 MCG In NS 200 / 200 Inj 240 ML @ 0.2 MCG/KG/HR 5.35 mls/hr IV.SIG TITRATE PRN Rx#: [id number] Mycamine Inj 100 MG In NS Inj 100 / 100 100 ML @ 100 mls/hr IV.SIG Q24H LEROY Rx#:[id number] Prostaphlin Inj 2 GM In NS Inj 300 / 300 300 / 300 100 ML @ 200 mls/hr IV.SIG Q4H LEROY Rx#:[id number] Tube Feeding 504 / 504 730 / 730 Tube Irrigant 30 / 30 60 / 60 Other 60 / 60 Rbc As-3 Leukoreduced Unit 60 / 60 [id number] Intake (Blood Product) Amt 400 / 400 0 / 0 Rbc As-3 Leukoreduced Unit 0 / 0 [id number] Rbc As-3 Leukoreduced Unit 400 / 400 [id number] Bladder Irrigation Fluid - 50 / 50 60 / 60 Amount Retained Coude 50 / 50 Indwelling Urethral Catheter 60 / 60 Output: Urine 600 / 600 Stool 300 / 300 600 / 600 Urine Amount (Catheter) 200 / 200 Indwelling Urethral Catheter 200 / 200 Other: Bladder Irrigation Fluid - Amount Instilled Coude 650 Indwelling Urethral Catheter 360 Bladder Irrigation Fluid - Amount Drained Coude 600 Indwelling Urethral Catheter 300 Other Intake Source Rbc As-3 Leukoreduced Unit Saline Solution [id number] Date of Last Bowel Movement 02/15/18 02/16/18 Result Diagrams: 02/16/18 04:20 02/16/18 04:20 Objective Remarks: GENERAL: Patient is 57 yo intubated tachypneic encephalopathic, appears to be in pain SKIN: Warm and dry. HEAD: Normocephalic. EYES: No scleral icterus. No injection or drainage. NECK: Supple, trachea midline. No JVD. CARDIOVASCULAR: Regular rate and rhythm. sinus. RESPIRATORY: Breath sounds equal bilaterally. No accessory muscle use. Air entry diminished at the bases GASTROINTESTINAL: Abdomen soft, slightly distended lower abdomen. Significant scrotal edema. Ennis catheter with hematuria MUSCULOSKELETAL: No cyanosis, +2 edema. Neuro: Intubated, do not follow commands for me, eyes spontaneously open. Moves extremities weakly Assessment and Plan - Assessment and Plan Plan: A/P Plan by systems: Neurologic: Acute metabolic encephalopathy Etoh abuse Monitor neuro status, on Thiamine/MVI/ Start fentanyl infusion as the patient appears to be in pain. Avoid all other sedation CT brain : No acute process on 02/02 EEG: Diffuse encephalopathy Neuro exam slightly improved but now patient appears to be in pain most likely from urinary retention Respiratory: Acute hypoxic and hypercarbic respiratory failure Right sided empyema Continue with vent support keep sats >92%, vent day 15. Bronchodilates, ICU vent bundle, SBT daily as marquez, mental status will not permit extubation Family leaning against trach/PEG. Palliative care following s/p right pigtail catheter placement 02/03, dislodged 02/13 night Pleural fluid analysis c/w empyema CXR 02/10 unchanged in b/l pulm infiltrates, may need repeat CT of the chest if further aggressive care desired Cardiovascular: Mixed hypovolemic and septic shock, resolved Atrial fibrillation with rapid ventricular response Monitor HR and BP keep MAP>65mmHg Cardizem 60mg QID, heart rate controlled Status post 5 L crystalloid resuscitation in the emergency department. Now on HD for fluid removal Echo showed EF 60-65%, no RWMA s/p EMILY 02/10 : No vegetations, unremarkable Renal: Acute kidney injury-severe Acute rhabdomyolysis Obstructive uropathy Hematuria BPH Monitor renal function, I/O's, avoid nephrotoxins, s/p HD 02/14 Urology is following- s/p despite upsizing Ennis to 26 Congolese, patient continues to have severe hematuria and bladder obstruction Dr. Lopez planning on OR intervention today Renal is following- Dr. Dinh. FEN/GI: Elevated LFT's with hyperbilirubinemia Acute protein calorie malnutrition: S KUB abdomen 02/11: Non specific bowel gas pattern, no def mechanical obstruction Tube feeds ( Nepro) as tolerated, hold for OR Ammonia level <10 on 02/02 Hepatitis profile: Non reactive, GI is following MRCP 02/10: No biliary obstruction. Bowel regimen with Lactulose, Colace and Senna. Heme/ID: Coagulopathy, probably secondary to end-stage liver disease Thrombocytopenia, secondary to shock Leukopenia, secondary septic shock Anemia requiring transfusion-due to severe hematuria Transfuse 1 unit PRBC today, repeat CBC in the afternoon On Teflaro, Cefepime, Oxacillin, micafungin per ID Monitor for signs of infections ( Fever, WBC) Follow up on cultures on BC from 02/11 NGTD 02/08 BC coag negative staph bacteremia 02/02 Sputum cx: GNR 02/02 Urine cx: Staph Aureus 02/03 BC: GPC 08/12 bottles 02/03 Fluid cx: NGTD HIV ab: non reactive Monitor CBC, coags s/p transfusion 1u PRBC on 02/11 s/p transfusion 1u PLT pheresis 02/08 Endocrine: Hyperglycemia of critical illness -- SSI, TSH 1.6 Prophylaxis: GI Prophylaxis Protonix IV DVT Prophylaxis -- SCDs - Subcu heparin on hold for thrombocytopenia, anemia requiring transfusion Palliative care is following Code status: Alternative code Lines: Right IJ vascath placed 02/08. Peripheral IV's CCT 35. Patient is critically ill again with severe encephalopathy worsening hematuria and urinary obstruction, and anemia requiring transfusion. Prognosis remains poor however obstructive uropathy is causing patient a lot of pain. Or intervention at this time to relieve obstruction is appropriate from a comfort standpoint also. And this is emergently required due to life-threatening hematuria and also severe pain
[2018-02-16] MEDS ORDERED: Phenylephrine/NS 1000 MCG/10ML Syringe IV.PUSH ONE (12:00)
[2018-02-16] MEDS ORDERED: Sodium Chlor 0.9% Inj 1,000 ML IV.SIG ONE (12:00)
[2018-02-16] MEDS: Chlorhexidine 0.12% Oral Kit 15 ML UDC OROPHARYNG SCH ×2 (12:13→21:07)
[2018-02-16] MEDS: Pantoprazole Inj 40 MG Vial IV.PUSH SCH (12:17)
[2018-02-16] MEDS: rifAXIMin 550 MG Tablet PO SCH ×2 (12:21→21:07)
[2018-02-16] MEDS ORDERED: Sodium Chloride 0.9% Irr Bag 3,000 ML, Aminocaproic Acid Inj 3,000 MG IRRIGATION SCH ×4 (17:00→17:15)
--- NOTE | 2018-02-16 17:01 | P.OP ---
- Preoperative Diagnosis (1) Clot retention of urine - Postoperative Diagnosis (1) Clot retention of urine Date of procedure: 02/16/18 Procedure: Cystoscopy with clot evacuation with fulguration Anesthesia: CHRISTINAA Surgeon: Soren Fang DO Estimated blood loss (mL): 100 Operation and Findings: 57-year-old male with history of ongoing gross hematuria he developed clot retention within the last 48 hours. Decision was made to bring the patient to the operating room emergently performed clot evacuation with fulguration of bleeding. Patient's hematocrit had been dropping during the last few days. Patient was brought to the operating room and identified by myself as Saurabh Forrester. He was placed in the dorsal lithotomy position, prepped and draped in usual sterile fashion, received preprocedure antibiotics and general anesthesia was administered. Please note the patient was brought down on a ventilator from the ICU. 24 Hungarian resectoscope sheath with the visual obturator was passed into the bladder and a large amount o'clock was visualized. Using the iliac evacuator multiple clots were then removed. Bleeding was noted to be coming from throughout the bladder and no specific area of bleeding could be identified. There was some traces of bleeding at the dome and this area was fulgurated with the rollerball. The rollerball was then used throughout the entire bladder. Care was taken to avoid both right and left ureteral orifices. The bladder neck was also fulgurated. Once the urine was pink with all the clots removed a 24 Hungarian hematuria catheter was then placed and the patient was started on CBI. The patient will return now to the ICU and be started on Amicar CBI with manual irrigation performed by the nurse every hour. The patient tolerated the procedure well and was stable throughout the entire case.
[2018-02-16] MEDS ORDERED: Bupivacaine Liposomal PF 1.3% Inj 20 ML Vial ONE (17:29)
[2018-02-16] MEDS ORDERED: Lidocaine PF 1% Inj 5 ML Vial ONE (17:31)
[2018-02-16] MEDS ORDERED: fentaNYL Citrate Inj 100 MCG/2 ML Ampul ONE (17:41)
--- NOTE | 2018-02-16 18:45 | P.PNNP ---
Subjective Interval history: Patient seen in AM, remain on the vent. and sedated. Physical Exam Vital signs: Vital Signs 02/15/18 20:00 02/15/18 21:00 02/15/18 21:02 Temperature 100.5 F H Pulse Rate 96 H 97 H Respiratory Rate 20 21 27 H Blood Pressure 115/77 125/67 Pulse Oximetry 97 97 96 02/15/18 22:00 02/15/18 23:00 02/16/18 00:00 Temperature 99.9 F H Pulse Rate 93 H 93 H 91 H Respiratory Rate 23 23 24 Blood Pressure 114/64 120/63 107/59 L Pulse Oximetry 96 97 95 02/16/18 00:58 02/16/18 01:00 02/16/18 01:05 Temperature Pulse Rate 90 88 Respiratory Rate 20 22 20 Blood Pressure 114/62 Pulse Oximetry 99 97 02/16/18 02:00 02/16/18 03:00 02/16/18 04:00 Temperature 98.9 F Pulse Rate 86 86 86 Respiratory Rate 25 H 21 23 Blood Pressure 108/58 L 113/62 107/59 L Pulse Oximetry 95 97 97 02/16/18 05:00 02/16/18 05:46 02/16/18 06:00 Temperature Pulse Rate 82 84 Respiratory Rate 20 21 22 Blood Pressure 110/60 108/63 Pulse Oximetry 97 98 98 02/16/18 06:20 02/16/18 07:00 02/16/18 08:00 Temperature 98.8 F 98.1 F 98.1 F Pulse Rate 80 80 78 Respiratory Rate 22 22 27 H Blood Pressure 104/61 115/63 115/63 Pulse Oximetry 98 94 L 94 L 02/16/18 09:52 02/16/18 11:39 02/16/18 12:00 Temperature Pulse Rate 80 Respiratory Rate 28 H 24 Blood Pressure Pulse Oximetry 96 94 L 02/16/18 14:00 02/16/18 15:24 Temperature 98.7 F Pulse Rate 78 80 Respiratory Rate 27 H Blood Pressure 123/60 Pulse Oximetry Intake & Output 02/15/18 02/16/18 02/16/18 18:59 06:59 18:59 Intake Total 2147 / 2147 1350 / 1350 1100 / 1100 Output Total 900 / 900 800 / 800 3600 / 3600 Balance 1247 / 1247 550 / 550 -2500 / -2500 Weight 111.5 kg Intake: IV 1103 / 1103 500 / 500 100 / 100 Maxipime Inj 2,000 MG In NS Inj 100 / 100 100 ML @ 200 mls/hr IV.SIG Q24H [facility] Rx#:[id number] Teflaro Inj 600 MG In NS Inj 300 / 300 100 / 100 100 ML @ 100 mls/hr IV.SIG Q8H [facility] Rx#:[id number] Precedex Inj 1,000 MCG In NS 200 / 200 Inj 240 ML @ 0.2 MCG/KG/HR 5.35 mls/hr IV.SIG TITRATE PRN Rx#: [id number] Mycamine Inj 100 MG In NS Inj 100 / 100 100 ML @ 100 mls/hr IV.SIG Q24H [facility] Rx#:[id number] Prostaphlin Inj 2 GM In NS Inj 300 / 300 400 / 400 100 / 100 100 ML @ 200 mls/hr IV.SIG Q4H [facility] Rx#:[id number] Tube Feeding 504 / 504 730 / 730 Tube Irrigant 30 / 30 60 / 60 Anesthesia Amount 600 / 600 Other 60 / 60 Rbc As-3 Leukoreduced Unit 60 / 60 [id number] Intake (Blood Product) Amt 400 / 400 0 / 0 400 / 400 Rbc As-3 Leukoreduced Unit 0 / 0 400 / 400 [id number] Rbc As-3 Leukoreduced Unit 400 / 400 [id number] Bladder Irrigation Fluid - 50 / 50 60 / 60 Amount Retained Coude 50 / 50 Indwelling Urethral Catheter 60 / 60 Output: Urine 600 / 600 Stool 300 / 300 600 / 600 Hemodialysis Amount 3500 / 3500 Estimated Blood Loss 100 / 100 Urine Amount (Catheter) 200 / 200 Indwelling Urethral Catheter 200 / 200 Other: Bladder Irrigation Fluid - Amount Instilled Coude 650 Indwelling Urethral Catheter 360 Bladder Irrigation Fluid - Amount Drained Coude 600 Indwelling Urethral Catheter 300 Other Intake Source Rbc As-3 Leukoreduced Unit Saline Solution [id number] Date of Last Bowel Movement 02/15/18 02/16/18 02/16/18 Narrative: GENERAL: Intubated, on the vent, sedated SKIN: Warm and dry. NECK: 2+ carotid upstrokes. CARDIOVASCULAR: Regular rate and rhythm without murmurs, gallops or rubs. RESPIRATORY: Normal breath sounds - equal bilaterally, with wheezes, rales or rubs. PERIPHERY: No cyanosis, trace edema. - Urinary Catheter Management Coude Cath placed during this visit: yes, but has since been removed by the nurse Urethral indwelling: Yes Reason for continuing: Acute urinary retention Insertion date: 02/02/18 Removal date: 02/15/18 Removal time: 19:45 Indwelling Urethral Catheter Cath placed during this visit: yes Reason for continuing: Acute urinary retention Insertion date: 02/15/18 Insertion time: 20:00 Assessment and Plan - Assessment (1) Acute renal failure (ARF) Code(s): N17.9 - Acute kidney failure, unspecified Status: Acute (2) Sepsis Code(s): A41.9 - Sepsis, unspecified organism Status: Acute (3) Respiratory failure Code(s): J96.90 - Respiratory failure, unspecified, unspecified whether with hypoxia or hypercapnia Status: Acute (4) Hypotension Code(s): I95.9 - Hypotension, unspecified Status: Acute Plan: Acute renal failure Anemia ICD Codes: N17.9 - Acute kidney failure, unspecified Plan: Patient has minimal UOP Initially on CRRT started on 02/04 for acute renal failure Vascath was removed, and re inserted. HD yesterday with removal of 3 liters. Continue antibiotics. Creatinine remain elevated. Will monitor urinary output, renal panel, and watch for renal recovery. Will continue hemodialysis on Wednesday/Wednesday/Wednesday Hemodialysis done in AM. Respiratory failure Management per CC Anemia Respiratory failure Epogen with dialysis . Hgb. remain low, has hematuria, For cystoscopy, to go to OR. Sepsis ICD Codes: A41.9 - Sepsis, unspecified organism Plan: ID following EMILY negative, antibiotics per ID Rhabdomyolysis ICD Codes: M62.82 - Rhabdomyolysis Plan: Monitor CPK UTI (lower urinary tract infection) ICD Codes: N39.0 - Urinary tract infection, site not specified Plan: Patient has MSSA and ID is following Pneumonia ICD Codes: J18.9 - Pneumonia, unspecified organism Plan: Pleural effusion drained
[2018-02-16 18:50] LABS: Hematocrit 21.4 % (39.0-51.0); Mean Corpuscular HGB Conc 32.9 % (32.0-36.0); Mean Corpuscular Hemoglobin 29.8 pg (27.0-34.0); Mean Corpuscular Volume 90.6 fL (80.0-100.0); Mean Platelet Volume 9.4 fL (7.0-11.0); Platelet Count 133 th/mm3 (150-450); Red Blood Count 2.36 mil/mm3 (4.50-5.90); Red Cell Distribution Width 21.8 % (11.6-17.2); White Blood Count 3.3 th/mm3 (4.0-11.0)
[2018-02-16] MEDS: fentaNYL 10 mcg/mL Premix Drip 2,500 MCG/250 ML BAG IV.SIG PRN (20:59)
[2018-02-16] MEDS: Insulin Detemir Inj 1,000 UNIT/10 ML Vial SQ SCH ×2 (21:06)
[2018-02-16] MEDS: Bisacodyl 10 MG Supp RECTAL SCH (21:07)
[2018-02-16] MEDS: Sodium Chloride 0.9% Irr Bag 3,000 ML, Aminocaproic Acid Inj 3,000 MG IRRIGATION SCH ×2 (21:09)
[2018-02-16] MEDS ORDERED: Sodium Chlor 0.9% Inj 250 ML IV.SIG SCH (23:45)
[2018-02-17] MEDS: Insulin NovoLOG Aspart Correctional Sugar Inj SQ SCH ×4 (04:22→17:12)
--- NOTE | 2018-02-17 05:14 | XR ---
EXAM DATE: 02/17/2018 4:55 AM EDT AGE/SEX: 57 years / Male INDICATIONS: Short of breath. CLINICAL DATA: This is the patient's subsequent encounter. Patient reports that signs and symptoms h ave been present for 4 - 6 days and indicates a pain score of 0/10. MEDICAL/SURGICAL HISTORY: Hypertension. Non-responsive. COMPARISON: [facility], CHEST 1V SINGLE AP, 02/15/2018. . FINDINGS: Stable ETT and right IJ central line. NGT has been removed. Stable small right pleural effusion and a ssociated lower lung zone airspace disease. Stable left lower lung zone airspace disease. Cardiomedia stinal contours are stable. Remainder of exam is unchanged. CONCLUSION: 1. Interval removal of NGT. 2. Stable small right pleural effusion and associated right lower lobe airspace disease. 3. Stable mild left lower lung zone airspace disease. Electronically signed by: Sushant Leal MD 02/17/2018 5:12 AM EDT
[2018-02-17 06:55] LABS: Baso % (Auto) 0.6 % (0.0-2.0); Eos % (Auto) 0.2 % (0.0-4.0); Hematocrit 23.1 % (39.0-51.0); Hemoglobin 7.7 gm/dL (13.0-17.0); Lymph # (Auto) 0.6 th/mm3 (1.0-4.8); Lymph % (Auto) 9.9 % (9.0-44.0); Mean Corpuscular HGB Conc 33.4 % (32.0-36.0); Mean Corpuscular Hemoglobin 29.3 pg (27.0-34.0); Mean Corpuscular Volume 87.6 fL (80.0-100.0); Mean Platelet Volume 9.6 fL (7.0-11.0); Mono # (Auto) 0.3 th/mm3 (0.0-0.9); Mono % (Auto) 4.6 % (0.0-8.0); Neut # (Auto) 5.2 th/mm3 (1.8-7.7); Neut % (Auto) 84.7 % (16.0-70.0); Platelet Count 128 th/mm3 (150-450); Red Blood Count 2.64 mil/mm3 (4.50-5.90); Red Cell Distribution Width 20.2 % (11.6-17.2); White Blood Count 6.1 th/mm3 (4.0-11.0)
[2018-02-17 07:06] LABS: Alanine Aminotransferase 23 U/L (12-78); Albumin 1.2 g/dL (3.4-5.0); Anion Gap 18 meq/L (5-15); Aspartate Aminotransferase 51 U/L (15-37); Blood Urea Nitrogen 69 mg/dL (7-18); Calcium 7.9 mg/dL (8.5-10.1); Carbon Dioxide 18.2 meq/L (21.0-32.0); Chloride 104 meq/L (98-107); Glomerular Filtration Rate 12 mL/min (>89); Glucose,Random 129 mg/dL (74-106); Phosphorus 7.3 mg/dL (2.5-4.9); Potassium 4.6 meq/L (3.5-5.1); Sodium 140 meq/L (136-145)
[2018-02-17 07:08] LABS: Alkaline Phosphatase 446 U/L (45-117); Total Protein 5.9 g/dL (6.4-8.2)
[2018-02-17] MEDS: Chlorhexidine 0.12% Oral Kit 15 ML UDC OROPHARYNG SCH ×2 (08:36→21:20)
[2018-02-17] MEDS: rifAXIMin 550 MG Tablet PO SCH ×2 (08:38→21:20)
[2018-02-17] MEDS: Pantoprazole Inj 40 MG Vial IV.PUSH SCH (08:38)
[2018-02-17] MEDS: Insulin Detemir Inj 1,000 UNIT/10 ML Vial SQ SCH (08:38)
[2018-02-17 09:36] LABS: Lymphocytes 3 % (9-44); Monocytes 8 % (0-8); Myelocytes 2 % (0-0); Tallied Nucleated RBC 1 (0-0)
[2018-02-17 09:37] LABS: Platelet Morphology Normal (Normal); Toxic Granulation 1+
[2018-02-17] MEDS: Bisacodyl 10 MG Supp RECTAL SCH (09:49)
--- NOTE | 2018-02-17 10:17 | P.PNURO ---
Subjective Patient symptoms today: Pt seen and examined. Urine now clear. On slow Amicar CBI. Objective Vital Signs: Vital Signs 02/16/18 11:39 02/16/18 12:00 02/16/18 14:00 Temperature Pulse Rate 80 78 Respiratory Rate 24 Blood Pressure Pulse Oximetry 94 L 02/16/18 15:24 02/16/18 18:00 02/16/18 19:00 Temperature 98.7 F 99.1 F 98.9 F Pulse Rate 80 70 70 Respiratory Rate 27 H 26 H 31 H Blood Pressure 123/60 112/66 112/66 Pulse Oximetry 97 99 02/16/18 20:00 02/16/18 21:00 02/16/18 22:00 Temperature 98.9 F 97.9 F Pulse Rate 76 68 76 Respiratory Rate 31 H 31 H 31 H Blood Pressure 111/67 100/58 L 97/51 L Pulse Oximetry 98 97 100 02/16/18 23:00 02/16/18 23:37 02/16/18 23:48 Temperature 97.7 F Pulse Rate 77 70 82 Respiratory Rate 30 H 30 H Blood Pressure 92/53 L 94/54 L Pulse Oximetry 100 98 02/17/18 00:00 02/17/18 00:17 02/17/18 01:00 Temperature 97.9 F 97.7 F Pulse Rate 76 77 76 Respiratory Rate 30 H 31 H 30 H Blood Pressure 88/54 L 94/54 L 94/51 L Pulse Oximetry 100 97 100 02/17/18 02:00 02/17/18 02:31 02/17/18 03:00 Temperature 98.3 F Pulse Rate 77 75 Respiratory Rate 29 H 29 H 28 H Blood Pressure 91/77 L 99/58 L Pulse Oximetry 100 98 100 02/17/18 04:00 02/17/18 05:00 02/17/18 05:30 Temperature Pulse Rate 73 72 Respiratory Rate 28 H 28 H 27 H Blood Pressure 95/59 L 92/59 L Pulse Oximetry 100 100 96 02/17/18 05:56 02/17/18 06:00 02/17/18 06:53 Temperature Pulse Rate 71 68 74 Respiratory Rate 28 H 24 Blood Pressure 101/56 L 97/59 L Pulse Oximetry 100 100 02/17/18 08:27 Temperature Pulse Rate Respiratory Rate 29 H Blood Pressure Pulse Oximetry 96 Intake & Output 02/16/18 02/17/18 02/17/18 18:59 06:59 18:59 Intake Total 2019 1136 / 1136 Output Total 7600 / 7600 4750 / 4750 Balance -5580 / -5580 -3614 / -3614 Intake: IV 300 / 300 900 / 900 Maxipime Inj 2,000 MG In NS Inj 200 / 200 100 ML @ 200 mls/hr IV.SIG Q24H [facility] Rx#:[id number] Teflaro Inj 600 MG In NS Inj 100 / 100 200 / 200 100 ML @ 100 mls/hr IV.SIG Q8H [facility] Rx#:[id number] Mycamine Inj 100 MG In NS Inj 100 / 100 100 ML @ 100 mls/hr IV.SIG Q24H [facility] Rx#:[id number] Prostaphlin Inj 2 GM In NS Inj 200 / 200 400 / 400 100 ML @ 200 mls/hr IV.SIG Q4H [facility] Rx#:[id number] Oral 0 / 0 Tube Feeding 60 / 60 116 / 116 Tube Irrigant 60 / 60 120 / 120 Water Bolus Amount 0 / 0 Anesthesia Amount 1200 / 1200 Intake (Blood Product) Amt 400 / 400 0 / 0 Rbc As-3 Leukoreduced Unit 400 / 400 [id number] Rbc As-3 Leukoreduced Unit 0 / 0 [id number] Bladder Irrigation Fluid - 0 / 0 Amount Retained Coude 0 / 0 Output: Urine 0 / 0 Stool 400 / 400 Pleural Fluid 0 / 0 Hemodialysis Amount 7000 / 7000 Estimated Blood Loss 200 / 200 Urine Amount (Catheter) 4750 / 4750 Indwelling Urethral Catheter 4750 / 4750 Gastric Drainage 0 / 0 Orogastric Tube 0 / 0 Chest Tube Drainage 0 / 0 #1 Right Anterior 0 / 0 Other: Bladder Irrigation Fluid - Amount Instilled Coude 450 Indwelling Urethral Catheter 3,500 Bladder Irrigation Fluid - Amount Drained Coude 3,600 Indwelling Urethral Catheter 3,500 Date of Last Bowel Movement 02/16/18 02/17/18 # Bowel Movements 0 2 # Incontinent Bowel Movements 0 2 Result Diagrams: 02/17/18 06:00 02/17/18 06:00 Imaging: Impressions Chest X-Ray 02/17/18 06:00 CONCLUSION: 1. Interval removal of NGT. 2. Stable small right pleural effusion and associated right lower lobe airspace disease. 3. Stable mild left lower lung zone airspace disease. Procedures: Quezada catheter replaced with a 20 Malagasy silicone Quezada however this did not alleviate the retention despite attempts to irrigate. The Quezada was then upsized to a 26 Malagasy catheter with evacuation greater than 350 cc medium red urine with multiple small clots. Medications and IVs: Active Medications Generic Name Dose Route Start Last Admin Trade Name Freq PRN Reason Stop Dose Admin Albuterol 1 ampul 02/06/18 00:00 02/16/18 20:02 Duoneb Neb (Prn) NEB 1 ampul Q2HR NEB PRN Administration WHEEZING Bisacodyl 10 mg 02/12/18 09:00 02/17/18 09:49 Dulcolax Supp RECTAL Not Given DAILY [facility] Chlorhexidine Gluconate 15 ml 02/06/18 08:00 02/17/18 08:36 Peridex 0.12% Oral Kit OROPHARYNG 15 ml BID@0800,2000 L[facility] Administration Chlorhexidine Gluconate 3 pack 02/06/18 00:00 Chlorhexidine 2% Cloth TOPICAL UNSCH PRN HYGIENIC CARE Clonidine HCl 0.1 mg 02/06/18 13:57 Catapres PO UNSCH PRN SEE LABEL COMMENTS Sodium Chloride 3,000 ml/ 0 ml 02/16/18 18:00 02/16/18 21:09 Aminocaproic Acid 3,000 mg IRRIGATION 3,000 irrig.soln Q24H [facility] Administration Dextrose 50 ml 02/10/18 14:22 D50w Vial IV.PUSH UNSCH PRN PER HYPOGLYCEMIA PROTOCOL Diltiazem HCl 60 mg 02/10/18 18:00 02/13/18 08:10 Cardizem PO Not Given QID [facility] Epoetin Ulysses 10,000 unit 02/15/18 16:00 02/16/18 08:59 Epogen Inj SQ 10,000 unit WITH DIALYSIS [facility] Administration Gelatin 1 foam 02/06/18 13:57 Gelfoam 12 Mm/7 Mm Topical TOPICAL PRN PRN help stop bleeding from site Gentamicin Sulfate 20 mg 02/06/18 13:57 02/16/18 08:59 Gentamicin Inj OTHER 20 mg WITH DIALYSIS PRN Administration Dwell Gentamycin Lock Glucagon 1 mg 02/10/18 14:22 Glucagon Inj OTHER PRN PRN for Hypoglycemia Protocol Heparin Sodium (Porcine) 1,000 units 02/06/18 13:57 02/16/18 08:59 Heparin Inj OTHER 1,000 units WITH DIALYSIS PRN Administration Dwell Heparin to Fill Catheter Heparin Sodium (Porcine) 8,000 units 02/06/18 00:00 Heparin Inj IV.PUSH WITH DIALYSIS PRN WITH DIALYSIS Sodium Chloride 1,000 mls @ 0 mls/hr 02/06/18 13:57 Ns Inj IV.CONT .Q0M PRN hypotension / volume replace As Directed Sodium Chloride 1,000 mls @ 0 mls/hr 02/06/18 13:57 Ns Inj OTHER .Q0M PRN for prime and rinse back As Directed Oxacillin Sodium 2 gm/ Sodium 100 mls @ 200 mls/hr 02/06/18 18:00 02/17/18 06 :41 Chloride IV.SIG Infused Q4H [facility] Infusion Cefepime HCl 2,000 mg/ Sodium 100 mls @ 200 mls/hr 02/06/18 18:00 02/16/18 23 :43 Chloride IV.SIG Infused Q24H [facility] Infusion Albumin Human 100 mls @ 60 mls/hr 02/07/18 12:00 02/11/18 08:06 Flexbumin 25% Inj IV.SIG Infused WITH DIALYSIS [facility] Infusion Ceftaroline Fosamil 600 mg/ 100 mls @ 100 mls/hr 02/07/18 16:00 02/17/18 08: 36 Sodium Chloride IV.SIG 100 mls/hr Q8H [facility] Administration Micafungin Sodium 100 mg/ 100 mls @ 100 mls/hr 02/14/18 20:00 02/16/18 22:07 Sodium Chloride IV.SIG Infused Q24H [facility] Infusion Fentanyl 2,500 mcg in 250 mls @ 5 mls/hr 02/16/18 09:53 02/16/18 20:59 Fentanyl 10 Mcg/Ml Premix Drip IV.SIG 50 mcg/hr TITRATE PRN 5 mls/hr Per Protocol Administration Protocol 50 MCG/HR Sodium Chloride 250 mls @ 15 mls/hr 02/16/18 23:45 02/17/18 02:53 Ns Inj IV.SIG 02/17/18 16:24 15 mls/hr ONCE [facility] Administration Sodium Chloride 1,000 mls @ 0 mls/hr 02/06/18 00:00 Ns Inj IV.SIG .Q0M PRN SEE LABEL COMMENTS As Directed Protamine Sulfate 25 mg/ 252.5 mls @ 5 mls/hr 02/06/18 00:00 Sodium Chloride IV.CONT TITRATE PRN HEPARINIZATION PROTOCOL Heparin Sodium/Dextrose 25,000 unit in 250 mls @ 0 mls/hr 02/06/18 00:00 Heparin/D5w 25,000 U/250 Ml IV.CONT TITRATE PRN PROTOCOL Protocol Per Protocol Insulin Aspart 0 unit 02/10/18 18:00 02/17/18 05:45 Novolog Insulin Suppl Scale Inj SQ Not Given Q6HR [facility] Protocol Insulin Detemir 10 unit 02/14/18 21:00 02/17/18 08:38 Levemir Inj SQ 10 unit BID [facility] Administration Mannitol 12.5 gm 02/06/18 13:57 02/11/18 07:08 Mannitol Inj IV.PUSH 12.5 gm PRN PRN Administration hypotension / volume replace Miscellaneous Information 0 each 02/06/18 00:00 Misc Nursing Information OTHER UNSCH [facility] Miscellaneous Information 1 each 01/27/19 00:00 Mis Information OTHER [id number] [facility] Morphine Sulfate 2 mg 02/16/18 02:43 02/16/18 03:40 Morphine Inj IV.PUSH 2 mg Q4H PRN Administration PAIN SCALE 1 TO 10 Multivitamins 1 tab 02/06/18 09:00 02/17/18 08:38 Theragran PO 1 tab DAILY [facility] Administration Nitroglycerin 0.4 mg 02/06/18 13:57 Nitrostat Sl SL Q5M PRN CHEST PAIN Ondansetron HCl 4 mg 02/06/18 00:00 Zofran Odt PO Q6H PRN NAUSEA OR VOMITING Pantoprazole Sodium 40 mg 02/06/18 09:00 02/17/18 08:38 Protonix Inj IV.PUSH 40 mg DAILY [facility] Administration Rifaximin 550 mg 02/11/18 21:00 02/17/18 08:38 Xifaxan PO 550 mg Q12HR [facility] Administration Sodium Chloride 2 ml 02/06/18 00:00 02/14/18 10:14 Ns Flush IV.FLUSH 2 ml UNSCH PRN Administration FLUSH AFTER USING IV ACCESS Thiamine HCl 100 mg 02/06/18 09:00 02/17/18 08:38 Vitamin B1 PO 100 mg DAILY [facility] Administration Objective Remarks: Intubated RRR Quezada is in place 02/17 Abd:soft,nt,nd Quezada with clear urine. Now on gentle Amicar CBI. Assessment and Plan - Assessment (1) Gross hematuria Code(s): R31.0 - Gross hematuria Status: Acute - Plan Continue care and current management plan as per primary team No additional intervention needed Perform bladder scan 1-2 times a day and if retaining > 300cc RN can irrigate and drain urine manually with 60cc syringe Urology remains available as needed Further urologic management as per recommendations listed above. 02/17 57 y.o. male with gross hematuria/clot retention s/p cysto with fulguration and clot evacuation Maintain quezada catheter Can titrate Amicar CBI to off once urine has remained clear for [address] catheter plug in CBI port once Amicar CBI is d/c'd.
[2018-02-17 10:59] LABS: Specimen HFE WB Whole Blood
--- NOTE | 2018-02-17 11:19 | P.PNID ---
Subjective Remarks: ID COVERAGE Most of the history of optimal review of medical records. is a 57-year-old male with very strong current history of alcohol abuse. His brother and [id number] were in the room report that he drinks greater than a pint for at least 25 years. Patient is a resident of [place] and reportedly moved here to be close to his brother. [facility]. Patient's brother reports that they often go to patient's house for safety checks. The last time he was reportedly normal was 5 days prior to him coming to the hospital. When patient' s brother went to visit him on the day of admission patient was markedly obtunded and difficult to arouse and had some matting of his eyelids and brother called EMS reportedly. When patient was seen by EMS she was found to be significantly encephalopathic and there was a concern for airway protection and therefore he was intubated for acute hypoxemia and hypercarbia. Reportedly was also an SVT with a heart rate greater than 200. In the emergency department he was cardioverted and was hypotensive requiring pressors. Patient was admitted to the ICU under critical care team. Patient is currently on vasopressors Larry-Synephrine at 100 mics, he is also on a propofol drip for sedation. He is currently on a ventilator with AC 50% FiO2, PEEP of 5 not much respiratory secretions noted. He also has a right-sided chest tube which was placed when a large effusion was noted on the CT scan. Per description by RN there was a lot of yellow looking purulent material noted when the chest tube was placed. Urology has been consulted because [place] was difficult to be placed. Patient does not have much in terms of her urine output and is currently at 50 cc. GI is following patient as well. Sepsis workup was initiated on admission infectious diseases consulted for evaluation and management of septic shock secondary to possibly right-sided empyema. Overnight events reviewed with RN. No fevers Urology following for blood clots. Urine now clear with blood tinge or clots. s/p PRBC infusion yday. Secretions syed small to moderate. Sputum Cultures sent. On Precedex: opens eyes, ? tracks. Did not follow commands for me. Off pressors. No generalized rash No diarrhea. No BM. All lines changed recently. A line DCed. Antibiotics: Cefepime IV Oxacillin IV Teflaro IV MicafungiN IV Lines: Line sites ok Past Medical History: Diabetes Hypertension Significant EtOH history some shoulder surgery Allergies/Adverse Reactions: Allergies lisinopril Allergy (Severe, Verified 02/05/18 06:22) airway edema Sulfa (Sulfonamide Antibiotics) Allergy (Severe, Verified 02/05/18 06:22) Edema, Localized AIRWAY EDEMA Objective Vital Signs 02/16/18 11:39 02/16/18 12:00 02/16/18 14:00 Temperature Pulse Rate 80 78 Respiratory Rate 24 Blood Pressure Pulse Oximetry 94 L 02/16/18 15:24 02/16/18 18:00 02/16/18 19:00 Temperature 98.7 F 99.1 F 98.9 F Pulse Rate 80 70 70 Respiratory Rate 27 H 26 H 31 H Blood Pressure 123/60 112/66 112/66 Pulse Oximetry 97 99 02/16/18 20:00 02/16/18 21:00 02/16/18 22:00 Temperature 98.9 F 97.9 F Pulse Rate 76 68 76 Respiratory Rate 31 H 31 H 31 H Blood Pressure 111/67 100/58 L 97/51 L Pulse Oximetry 98 97 100 02/16/18 23:00 02/16/18 23:37 02/16/18 23:48 Temperature 97.7 F Pulse Rate 77 70 82 Respiratory Rate 30 H 30 H Blood Pressure 92/53 L 94/54 L Pulse Oximetry 100 98 02/17/18 00:00 02/17/18 00:17 02/17/18 01:00 Temperature 97.9 F 97.7 F Pulse Rate 76 77 76 Respiratory Rate 30 H 31 H 30 H Blood Pressure 88/54 L 94/54 L 94/51 L Pulse Oximetry 100 97 100 02/17/18 02:00 02/17/18 02:31 02/17/18 03:00 Temperature 98.3 F Pulse Rate 77 75 Respiratory Rate 29 H 29 H 28 H Blood Pressure 91/77 L 99/58 L Pulse Oximetry 100 98 100 02/17/18 04:00 02/17/18 05:00 02/17/18 05:15 Temperature Pulse Rate 73 72 73 Respiratory Rate 28 H 29 H 29 H Blood Pressure 95/59 L 99/55 L 97/52 L Pulse Oximetry 100 96 95 02/17/18 05:30 02/17/18 05:45 02/17/18 05:56 Temperature Pulse Rate 71 70 71 Respiratory Rate 28 H 28 H Blood Pressure 101/57 L 93/51 L Pulse Oximetry 96 95 02/17/18 06:00 02/17/18 06:15 02/17/18 06:30 Temperature Pulse Rate 71 67 68 Respiratory Rate 29 H 27 H 29 H Blood Pressure 95/53 L 100/56 L 101/56 L Pulse Oximetry 96 100 96 02/17/18 06:45 02/17/18 06:53 02/17/18 07:00 Temperature Pulse Rate 67 74 73 Respiratory Rate 29 H 24 29 H Blood Pressure 97/55 L 97/59 L 102/61 Pulse Oximetry 96 100 98 02/17/18 07:15 02/17/18 07:30 02/17/18 07:45 Temperature Pulse Rate 69 68 71 Respiratory Rate 28 H 28 H 29 H Blood Pressure 92/50 L 97/54 L 101/55 L Pulse Oximetry 97 97 97 02/17/18 08:00 02/17/18 08:15 02/17/18 08:27 Temperature 98.3 F Pulse Rate 68 69 Respiratory Rate 29 H 29 H 29 H Blood Pressure 98/57 L 99/54 L Pulse Oximetry 96 96 96 02/17/18 08:30 02/17/18 08:45 02/17/18 09:00 Temperature Pulse Rate 69 69 66 Respiratory Rate 30 H 29 H 27 H Blood Pressure 95/51 L 92/51 L 95/53 L Pulse Oximetry 96 96 96 02/17/18 09:15 02/17/18 09:30 02/17/18 09:45 Temperature Pulse Rate 67 67 68 Respiratory Rate 26 H 27 H 27 H Blood Pressure 94/51 L 93/51 L 92/52 L Pulse Oximetry 96 97 97 02/17/18 10:00 02/17/18 10:15 02/17/18 10:30 Temperature Pulse Rate 68 69 72 Respiratory Rate 26 H 26 H 19 Blood Pressure 95/52 L 93/51 L 90/51 L Pulse Oximetry 97 97 99 02/17/18 10:45 02/17/18 11:00 Temperature Pulse Rate 80 82 Respiratory Rate 29 H 27 H Blood Pressure 101/57 L 99/54 L Pulse Oximetry 97 97 Intake & Output 02/16/18 02/17/18 02/17/18 18:59 06:59 18:59 Intake Total 2019 1136 / 1136 Output Total 7600 / 7600 4750 / 4750 Balance -5580 / -5580 -3614 / -3614 Intake: IV 300 / 300 900 / 900 Maxipime Inj 2,000 MG In NS Inj 200 / 200 100 ML @ 200 mls/hr IV.SIG Q24H LEROY Rx#:[id number] Teflaro Inj 600 MG In NS Inj 100 / 100 200 / 200 100 ML @ 100 mls/hr IV.SIG Q8H LEROY Rx#:[id number] Mycamine Inj 100 MG In NS Inj 100 / 100 100 ML @ 100 mls/hr IV.SIG Q24H LEROY Rx#:[id number] Prostaphlin Inj 2 GM In NS Inj 200 / 200 400 / 400 100 ML @ 200 mls/hr IV.SIG Q4H LEROY Rx#:[id number] Oral 0 / 0 Tube Feeding 60 / 60 116 / 116 Tube Irrigant 60 / 60 120 / 120 Water Bolus Amount 0 / 0 Anesthesia Amount 1200 / 1200 Intake (Blood Product) Amt 400 / 400 0 / 0 Rbc As-3 Leukoreduced Unit 400 / 400 [id number] Rbc As-3 Leukoreduced Unit 0 / 0 [id number] Bladder Irrigation Fluid - 0 / 0 Amount Retained Coude 0 / 0 Output: Urine 0 / 0 Stool 400 / 400 Pleural Fluid 0 / 0 Hemodialysis Amount 7000 / 7000 Estimated Blood Loss 200 / 200 Urine Amount (Catheter) 4750 / 4750 Indwelling Urethral Catheter 4750 / 4750 Gastric Drainage 0 / 0 Orogastric Tube 0 / 0 Chest Tube Drainage 0 / 0 #1 Right Anterior 0 / 0 Other: Bladder Irrigation Fluid - Amount Instilled Coude 450 Indwelling Urethral Catheter 3,500 Bladder Irrigation Fluid - Amount Drained Coude 3,600 Indwelling Urethral Catheter 3,500 Date of Last Bowel Movement 02/16/18 02/17/18 02/17/18 # Bowel Movements 0 2 # Incontinent Bowel Movements 0 2 02/14/18 10:10 Blood - Peripheral Aerobic Blood Culture - Preliminary No growth in 3 days 02/14/18 10:10 Blood - Peripheral Anaerobic Blood Culture - Preliminary No growth in 3 days 02/14/18 10:20 Blood - Peripheral Aerobic Blood Culture - Preliminary No growth in 3 days 02/14/18 10:20 Blood - Peripheral Anaerobic Blood Culture - Preliminary No growth in 3 days 02/15/18 02:25 Catheterized Urine Urine Culture - Final No growth in 48 hours 02/14/18 11:44 Sputum - Endotracheal Gram Stain - Final 02/14/18 11:44 Sputum - Endotracheal Sputum Culture - Final Heavy growth normal respiratory km 02/11/18 04:50 Blood - Peripheral Aerobic Blood Culture - Final No growth in 5 days 02/11/18 04:50 Blood - Peripheral Anaerobic Blood Culture - Final No growth in 5 days 02/11/18 04:57 Blood - Peripheral Aerobic Blood Culture - Final No growth in 5 days 02/11/18 04:57 Blood - Peripheral Anaerobic Blood Culture - Final No growth in 5 days Lab - Hematology Results 02/16/18 02/16/18 02/17/18 04:20 18:08 06:00 WBC 5.0 3.3 L 6.1 D RBC 2.05 L 2.36 L 2.64 L Hgb 6.2 L* 7.0 L 7.7 L Hct 18.9 L* 21.4 L 23.1 L MCV 92.2 90.6 87.6 MCH 30.4 29.8 29.3 MCHC 32.9 32.9 33.4 RDW 18.7 H 21.8 H D 20.2 H Plt Count 166 133 L 128 L MPV 9.8 9.4 9.6 Prelim Diff (Auto) Slide review pending Slide review pending Neut % (Auto) 82.0 H 84.7 H Lymph % (Auto) 8.6 L 9.9 [place] % (Auto) 8.1 H 4.6 Eos % (Auto) 0.3 0.2 Baso % (Auto) 1.0 0.6 Neut # (Auto) 4.1 5.2 Lymph # (Auto) 0.4 L 0.6 L [place] # (Auto) 0.4 0.3 Eos # (Auto) 0.0 0.0 Baso # (Auto) 0.0 0.0 WBC Differential . Manual diff final Diff Scan Auto diff confirmed Seg Neuts % (Manual) 68 Band Neuts % (Manual) 19 H Lymphocytes % (Manual) 3 L Monocytes % (Manual) 8 Myelocytes % (Man) 2 H Abs Neuts (Manual) 5.4 Nucleated RBCs/100 WBC 1 H Differential Comment . . Toxic Granulation 1+ H Platelet Estimate Low L Platelet Morphology Normal Stomatocytes 1+ H Lab - Chemistry Results 02/15/18 02/15/18 02/15/18 11:18 17:59 21:53 Sodium Potassium Chloride Carbon Dioxide Anion Gap BUN Creatinine Estimated GFR POC Glucose 165 H 149 H 199 H Random Glucose Lactic Acid Calcium Phosphorus Magnesium Total Bilirubin AST ALT Alkaline Phosphatase Total Protein Albumin 02/16/18 02/16/18 02/16/18 00:32 04:20 04:20 Sodium 145 Potassium 4.3 Chloride 107 Carbon Dioxide 18.5 L Anion Gap 20 H BUN 85 H Creatinine 5.91 H Estimated GFR 10 L POC Glucose 213 H Random Glucose 196 H Lactic Acid 1.8 Calcium 7.9 L Phosphorus 8.0 H Magnesium 2.4 Total Bilirubin AST ALT Alkaline Phosphatase Total Protein Albumin 02/16/18 02/16/18 02/16/18 05:25 12:37 15:11 Sodium Potassium Chloride Carbon Dioxide Anion Gap BUN Creatinine Estimated GFR POC Glucose 201 H 155 H 154 H Random Glucose Lactic Acid Calcium Phosphorus Magnesium Total Bilirubin AST ALT Alkaline Phosphatase Total Protein Albumin 02/16/18 02/16/18 02/17/18 18:49 21:05 05:44 Sodium Potassium Chloride Carbon Dioxide Anion Gap BUN Creatinine Estimated GFR POC Glucose 165 H 164 H 142 H Random Glucose Lactic Acid Calcium Phosphorus Magnesium Total Bilirubin AST ALT Alkaline Phosphatase Total Protein Albumin 02/17/18 06:00 Sodium 140 Potassium 4.6 Chloride 104 Carbon Dioxide 18.2 L Anion Gap 18 H BUN 69 H Creatinine 5.09 H Estimated GFR 12 L POC Glucose Random Glucose 129 H Lactic Acid Calcium 7.9 L Phosphorus 7.3 H Magnesium 2.0 Total Bilirubin 3.4 H AST 51 H ALT 23 Alkaline Phosphatase 446 H Total Protein 5.9 L Albumin 1.2 L Imaging: ITS Impressions Cholangiopancreatography MRI 02/10/18 00:00 CONCLUSION: No evidence of biliary obstruction Abdomen X-Ray 02/11/18 00:00 CONCLUSION: Nonspecific bowel gas pattern with some mildly dilated loops of colon. No definite mechanical obstruction is demonstrated. Abdomen Ultrasound 02/14/18 00:00 CONCLUSION: 1. Small volume ascites Chest X-Ray 02/17/18 06:00 CONCLUSION: 1. Interval removal of NGT. 2. Stable small right pleural effusion and associated right lower lobe airspace disease. 3. Stable mild left lower lung zone airspace disease. Physical Exam: GENERAL: Sedated, on the vent, NAD SKIN: Cool and dry, no generalized rash HEAD: Atraumatic. Normocephalic. No temporal or scalp tenderness. EYES: Pupils equal round and reactive. Scleral icterus. No injection or drainage. No petechia ENT: Orally intubated NECK: Trachea midline. Supple, nontender, no meningeal signs. CARDIOVASCULAR: HS audible. RESPIRATORY: AE decreased in the bases R>L. Right side CT with serous fluid noted GASTROINTESTINAL: Abdomen distended, some grimacing during palpation MUSCULOSKELETAL: Extremities without clubbing, cyanosis. Septic emboli to feet noted. Has a large hemorrhagic bullous lesion on L palm NEUROLOGICAL: Opens eyes, ?tracks, did not follow commands for me. Moves extremities spontaneously sometimes. Psych could not be assessed IV line sites ok. Assessment and Plan - Plan MSSA sepsis, Septic Shock, on pressors Right side Pulm Empyema, MSSA Rule out endocarditis. Polymicrobial PNA ( PSAE, second GNR, Staph aureus) also likely aspiration in setting of alcoholism Cardiomegaly: ? alcohol related vs CAD. MSSA in urine. Acute resp failure on vent Acute oliguric renal failure: prerenal, sepsis. - on CVVHD Acute metabolic encephalopathy: sepsis, metabolic. Leukocytosis Thrombocytopenia: sepsis, no DIC RECOMMENDATION Continue IV Oxacillin for MSSA Continue Teflaro IV (as second MSSA agent pending clearance of bacteremia) DC Cefepime DC Micafungin IV Follow cultures If goals remain aggressive would like to get CT C/A/P to look for evidence of further dissemination. troy Robb he informs me patient would like to transition to comfort care possibly today per his discussion with palliative care. troy Tomlinson will hold off CT imaging as well as MRI spine (concern for epidural abscess due to retention of urine) EMILY negative. Follow cultures. Monitor progress D/W RN Prognosis guarded. troy Lazar
--- NOTE | 2018-02-17 12:55 | P.DIET ---
Nutritional Evaluation Type of nutrition evaluation: follow-up Nutrition consult regarding: Tube Feeding Objective - Diagnosis AMS, Intubated - Objective % IBW: 127 Body Weight Used for Calculations: IBW (70kg) Energy Needs - Lower Range (kCal/kg): 28 Energy Needs - Upper Range (kCal/kg): 33 Lower Limit kCal/kg (kCals): 1,960 Upper Limit kCal/kg (kCals): 2,310 Lower Limit Protein Factor (Grams per Kg): 1.2 Upper Limit Protein Factor (Grams per Kg): 1.5 Lower Protein Needs (Protein): 84 Upper Protein Needs (Protein): 105 Dietitian Reviewed in Medical Record: Curent medications, Intake & Output, Labs , Tube feeding Diet Order: TF only Objective Comments: PMH: Chronic back pain, Depression, DM, Diverticulitis, ETOH Abuse Meds include: Theragran, Vit B1, Fentanyl, Levemir, Xifaxan Labs include: Hgb 7.7, Hct 23.1, Cr 5.09, Glu 129, T Bili 3.4, elevated LFT's HD 02/16 7L removed, +2 BM's Feeding - Current Tube Feeding Tube Feeding Product: Nepro Tube Feeding Method: Pump Tube Feeding Rate: 40 Current kCals Provided by Tube Feedin,728 Current Protein Provided by Tube Feeding (gPRO): 78 Current Free H2O Provided (m/l): 698 Assessment Assessment: Pt at nutritional risk r/t dx and need for a TF for nutrition support. Pt remains intubated and sedated on Fentanyl. Pt with acute kidney failure with tubular necrosis, is on HD. TF Nepro is running at 40 ml/hr and pt is tolerating it well.. P't's nutritional needs as assessed above. To meet his needs, a goal rate of 50 ml/hr is necessary which provides 2160 kcals, 97 gms protein and 872 mls free water. Will monitor TF tolerance, clinical course. Recommendations: TF Nepro with goal rate 50 ml/hr to meet pt's nutritional needs Dietitian to monitor TF tolerance, clinica course. Dietitian to Monitor: Lab values, Renal labs, Intake & Output, Tube feeding tolerance, Weight change, Medical course
--- NOTE | 2018-02-17 15:01 | P.PNCC ---
Subjective Subjective Remarks/Hospital Course: This is a 57-year-old male with a strong history of EtOH abuse, his family states that he drinks greater than a pint today times at least 25 years. He was found unresponsive at home this afternoon. The last time he was seen normal was 5 days ago. He was brought in by EMS and was severely altered. He was intubated for acute hypoxemia and hypercarbia. He was also in a supraventricular tachycardia with a heart rate greater than 200. In the emergency department he was electrically cardioverted 2 without success, and given 5 mill grams of IV Lopressor which caused severe hypotension, but did not resolve his tachycardia. Immediately upon being notified went down to the emergency department evaluated the patient and transported him up to the intensive care unit. Once in the intensive care unit, I placed arterial and central lines, see separate procedure note for details. I loaded the patient with 150 mg of amiodarone and 2 g magnesium. In addition, the patient has a blood gas with severe metabolic acidosis and a pH less than 7.2. I gave 4 A of sodium bicarbonate as well as 1 g of calcium chloride for severe hypocalcemia. After these interventions, the patient spontaneously converted to a sinus tachycardia. The patient was placed on norepinephrine for persistent hypotension and shock. The emergency department attempted to place a 16 Algerian Ennis catheter and was unsuccessful with this. I attempted an additional time to place both an 18 Algerian coud catheter as well as a 24 Algerian three-way catheter, both which were unsuccessful and met significant resistance at approximately 10-12 cm. I consulted urology and discussed the case with Dr. Worley who agrees to Place Ennis catheter tonight for emergent urine output monitoring while in shock. The patient remains altered no additional information is available from patient. ROS is unobtainable. 02/03 Patient is intubated on Levoped 5 mics, Amio and bicarb drips. 16Fr catheter was placed by Urology. 02/04 Patient remains intubated and sedated with Diprivan. Off Levophed on Neosyn 60mics. Right sided pig tail catheter placed yesterday with removal 1100ml cloudy fluid fluid analysis c/w empyema. Renal function declining with Cr: 5.87 and UOP 120ml in 12 hrs. Tmax 102.2 02/05: remains intubated and critically ill. on CVVHD. per RN, net -300/hr on CVVHD. off vasopressors this AM. 02/06: Remains sedated, orally intubated on mechanical ventilation. CRRT clotted off last night. Nephrology planning HD 02/07 Patient remains intubated and sedated with Fentanyl infusion. Off Neosyn remains on Vasopressin and Amio drip. T;102 last night. 02/08 No events overnight. Intubated and on Fentanyl infusion for sedation. Afebrile. Off all pressors. s/p HD yesterday. On Amio drip. 02/09 Patient remains sedated and intubated. For HD today. On Amio drip, T:101.3 last night. 02/10 No events overnight. Sedated with Diprivan and Fentanyl drips. Afebrile. For possible EMILY today. 02/11 Patient remains intubated and sedated. Tmax 100.1. MRCP yesterday no biliary obstruction. On Amio drip. 02/12 Patient remains intubated, now on Precedex drip, Off Diprivan and Fentanyl drip. Tmax:99.7 02/13 No events overnight. Off Diprivan and Fentanyl drips on Precedex drip 0.5. Afebrile. 02/14: Remains on 1.5 mcg/kg/hr of Precedex, No spontaneous eye opening, do not follow commands. Urology reconsulted for persistent retention 02/15: Remains critical. Currently on 7 mcg/kg/h of Precedex. Follows simple commands for the RN not reproducible to me. Urology reconsulted for retentions. Had HD yesterday. No fever in the last 24 hours. Currently on CPAP slightly tachypneic 02/16: Patient remains lethargic encephalopathic critical. Despite upsizing Ennis to 26 Algerian, patient continues to have hematuria and urinary retention. Hemoglobin dropped to 6.[address] Jones, urology planning for OR intervention today. Hemoglobin dropped to 6.2 getting 1 unit PRBC Subjective 02/17: Currently afebrile. Currently on continuous bladder irrigations with hematuria resolving. Hemoglobin appears stable currently. Failed PSV trial today. -7 L with hemodialysis 02/16 Objective Vital Signs / I&O: Vital Signs 02/16/18 15:24 02/16/18 18:00 02/16/18 19:00 Temperature 98.7 F 99.1 F 98.9 F Pulse Rate 80 70 70 Respiratory Rate 27 H 26 H 31 H Blood Pressure 123/60 112/66 112/66 Pulse Oximetry 97 99 02/16/18 20:00 02/16/18 21:00 02/16/18 22:00 Temperature 98.9 F 97.9 F Pulse Rate 76 68 76 Respiratory Rate 31 H 31 H 31 H Blood Pressure 111/67 100/58 L 97/51 L Pulse Oximetry 98 97 100 02/16/18 23:00 02/16/18 23:37 02/16/18 23:48 Temperature 97.7 F Pulse Rate 77 70 82 Respiratory Rate 30 H 30 H Blood Pressure 92/53 L 94/54 L Pulse Oximetry 100 98 02/17/18 00:00 02/17/18 00:17 02/17/18 01:00 Temperature 97.9 F 97.7 F Pulse Rate 76 77 76 Respiratory Rate 30 H 31 H 30 H Blood Pressure 88/54 L 94/54 L 94/51 L Pulse Oximetry 100 97 100 02/17/18 02:00 02/17/18 02:31 02/17/18 03:00 Temperature 98.3 F Pulse Rate 77 75 Respiratory Rate 29 H 29 H 28 H Blood Pressure 91/77 L 99/58 L Pulse Oximetry 100 98 100 02/17/18 04:00 02/17/18 05:00 02/17/18 05:15 Temperature Pulse Rate 73 72 73 Respiratory Rate 28 H 29 H 29 H Blood Pressure 95/59 L 99/55 L 97/52 L Pulse Oximetry 100 96 95 02/17/18 05:30 02/17/18 05:45 02/17/18 05:56 Temperature Pulse Rate 71 70 71 Respiratory Rate 28 H 28 H Blood Pressure 101/57 L 93/51 L Pulse Oximetry 96 95 02/17/18 06:00 02/17/18 06:15 02/17/18 06:30 Temperature Pulse Rate 71 67 68 Respiratory Rate 29 H 27 H 29 H Blood Pressure 95/53 L 100/56 L 101/56 L Pulse Oximetry 96 100 96 02/17/18 06:45 02/17/18 06:53 02/17/18 07:00 Temperature Pulse Rate 67 74 73 Respiratory Rate 29 H 24 29 H Blood Pressure 97/55 L 97/59 L 102/61 Pulse Oximetry 96 100 98 02/17/18 07:15 02/17/18 07:30 02/17/18 07:45 Temperature Pulse Rate 69 68 71 Respiratory Rate 28 H 28 H 29 H Blood Pressure 92/50 L 97/54 L 101/55 L Pulse Oximetry 97 97 97 02/17/18 08:00 02/17/18 08:15 02/17/18 08:27 Temperature 98.3 F Pulse Rate 69 69 Respiratory Rate 29 H 29 H 29 H Blood Pressure 98/57 L 99/54 L Pulse Oximetry 96 96 96 02/17/18 08:30 02/17/18 08:45 02/17/18 09:00 Temperature Pulse Rate 69 69 66 Respiratory Rate 30 H 29 H 27 H Blood Pressure 95/51 L 92/51 L 95/53 L Pulse Oximetry 96 96 96 02/17/18 09:15 02/17/18 09:30 02/17/18 09:45 Temperature Pulse Rate 67 67 68 Respiratory Rate 26 H 27 H 27 H Blood Pressure 94/51 L 93/51 L 92/52 L Pulse Oximetry 96 97 97 02/17/18 10:00 02/17/18 10:15 02/17/18 10:30 Temperature Pulse Rate 80 69 72 Respiratory Rate 26 H 26 H 19 Blood Pressure 95/52 L 93/51 L 90/51 L Pulse Oximetry 97 97 99 02/17/18 10:45 02/17/18 11:00 02/17/18 11:15 Temperature Pulse Rate 80 82 79 Respiratory Rate 29 H 27 H 28 H Blood Pressure 101/57 L 99/54 L 97/56 L Pulse Oximetry 97 97 97 02/17/18 11:30 02/17/18 11:45 02/17/18 12:00 Temperature 98.6 F Pulse Rate 80 79 74 Respiratory Rate 29 H 28 H 29 H Blood Pressure 93/55 L 93/52 L 93/53 L Pulse Oximetry 97 98 97 02/17/18 12:15 02/17/18 12:30 02/17/18 12:45 Temperature Pulse Rate 75 74 77 Respiratory Rate 27 H 25 H 22 Blood Pressure 91/51 L 94/54 L 98/54 L Pulse Oximetry 97 97 97 02/17/18 13:00 02/17/18 13:02 02/17/18 13:15 Temperature 98.8 F Pulse Rate 77 78 Respiratory Rate 20 18 21 Blood Pressure 98/53 L 98/54 L Pulse Oximetry 97 97 97 02/17/18 13:30 02/17/18 13:45 02/17/18 14:00 Temperature Pulse Rate 77 77 77 Respiratory Rate 21 19 18 Blood Pressure 99/57 L 92/53 L 94/53 L Pulse Oximetry 98 98 97 Intake & Output 02/16/18 02/17/18 02/17/18 18:59 06:59 18:59 Intake Total 2019 1136 / 1136 200 / 200 Output Total 7600 / 7600 4750 / 4750 Balance -5580 / -5580 -3614 / -3614 200 / 200 Intake: IV 300 / 300 900 / 900 200 / 200 Maxipime Inj 2,000 MG In NS Inj 200 / 200 100 ML @ 200 mls/hr IV.SIG Q24H LEROY Rx#:[id number] Teflaro Inj 600 MG In NS Inj 100 / 100 200 / 200 100 / 100 100 ML @ 100 mls/hr IV.SIG Q8H LEROY Rx#:[id number] Mycamine Inj 100 MG In NS Inj 100 / 100 100 ML @ 100 mls/hr IV.SIG Q24H [facility]EROY Rx#:[id number] Prostaphlin Inj 2 GM In NS Inj 200 / 200 400 / 400 100 / 100 100 ML @ 200 mls/hr IV.SIG Q4H LEROY Rx#:[id number] Oral 0 / 0 Tube Feeding 60 / 60 116 / 116 Tube Irrigant 60 / 60 120 / 120 Water Bolus Amount 0 / 0 Anesthesia Amount 1200 / 1200 Intake (Blood Product) Amt 400 / 400 0 / 0 Rbc As-3 Leukoreduced Unit 400 / 400 [id number] Rbc As-3 Leukoreduced Unit 0 / 0 [id number] Bladder Irrigation Fluid - 0 / 0 Amount Retained Coude 0 / 0 Output: Urine 0 / 0 Stool 400 / 400 Pleural Fluid 0 / 0 Hemodialysis Amount 7000 / 7000 Estimated Blood Loss 200 / 200 Urine Amount (Catheter) 4750 / 4750 Indwelling Urethral Catheter 4750 / 4750 Gastric Drainage 0 / 0 Orogastric Tube 0 / 0 Chest Tube Drainage 0 / 0 #1 Right Anterior 0 / 0 Other: Bladder Irrigation Fluid - Amount Instilled Coude 450 Indwelling Urethral Catheter 3,500 Bladder Irrigation Fluid - Amount Drained Coude 3,600 Indwelling Urethral Catheter 3,500 Date of Last Bowel Movement 02/16/18 02/17/18 02/17/18 # Bowel Movements 0 2 # Incontinent Bowel Movements 0 2 Result Diagrams: 02/17/18 06:00 02/17/18 06:00 Other Results: Microbiology 02/14/18 10:10 Blood - Peripheral Aerobic Blood Culture - Preliminary No growth in 3 days 02/14/18 10:10 Blood - Peripheral Anaerobic Blood Culture - Preliminary No growth in 3 days 02/14/18 10:20 Blood - Peripheral Aerobic Blood Culture - Preliminary No growth in 3 days 02/14/18 10:20 Blood - Peripheral Anaerobic Blood Culture - Preliminary No growth in 3 days 02/15/18 02:25 Catheterized Urine Urine Culture - Final No growth in 48 hours 02/14/18 11:44 Sputum - Endotracheal Gram Stain - Final 02/14/18 11:44 Sputum - Endotracheal Sputum Culture - Final Heavy growth normal respiratory km 02/11/18 04:50 Blood - Peripheral Aerobic Blood Culture - Final No growth in 5 days 02/11/18 04:50 Blood - Peripheral Anaerobic Blood Culture - Final No growth in 5 days 02/11/18 04:57 Blood - Peripheral Aerobic Blood Culture - Final No growth in 5 days 02/11/18 04:57 Blood - Peripheral Anaerobic Blood Culture - Final No growth in 5 days 02/08/18 14:02 Blood - Peripheral Aerobic Blood Culture - Final Staphylococcus epidermidis 02/08/18 14:02 Blood - Peripheral Anaerobic Blood Culture - Final No growth in 5 days 02/08/18 13:55 Blood - Peripheral Aerobic Blood Culture - Final Staphylococcus epidermidis 02/08/18 13:55 Blood - Peripheral Anaerobic Blood Culture - Final No growth in 5 days 02/07/18 03:59 Blood - Peripheral Aerobic Blood Culture - Final Staphylococcus aureus 02/07/18 03:59 Blood - Peripheral Anaerobic Blood Culture - Final No growth in 5 days 02/06/18 10:59 Blood - Peripheral Aerobic Blood Culture - Final Staphylococcus aureus 02/06/18 10:59 Blood - Peripheral Anaerobic Blood Culture - Final No growth in 5 days 02/08/18 12:30 Catheter Tip - Central Venous Line Wound Culture - Final No growth in 48 hours Imaging: ITS Impressions Cholangiopancreatography MRI 02/10/18 00:00 CONCLUSION: No evidence of biliary obstruction Abdomen X-Ray 02/11/18 00:00 CONCLUSION: Nonspecific bowel gas pattern with some mildly dilated loops of colon. No definite mechanical obstruction is demonstrated. Abdomen Ultrasound 02/14/18 00:00 CONCLUSION: 1. Small volume ascites Chest X-Ray 02/17/18 06:00 CONCLUSION: 1. Interval removal of NGT. 2. Stable small right pleural effusion and associated right lower lobe airspace disease. 3. Stable mild left lower lung zone airspace disease. Objective Remarks: GENERAL: Patient is 57 yo male currently orotracheally intubated SKIN: Warm and dry. Stage 0 DTI HEAD: Normocephalic. EYES: No scleral icterus. No injection or drainage. NECK: Supple, trachea midline. No JVD. CARDIOVASCULAR: Regular rate and rhythm. sinus. RESPIRATORY: Breath sounds equal bilaterally. No accessory muscle use. Air entry diminished at the bases GASTROINTESTINAL: Abdomen soft, slightly distended lower abdomen. Significant scrotal edema. Ennis catheter with hematuria MUSCULOSKELETAL: Trace with 2+ upper lower extremity edema. Neuro: Intubated, do not follow commands for me, eyes spontaneously open. Moves extremities weakly grimaces with suctioning. Withdraws to pain bilateral upper and lower extremities Assessment and Plan - Assessment and Plan Plan: Neuro/Psych Acute metabolic encephalopathy Etoh abuse Currently on fentanyl drip at 250 mcg/h for sedation while intubated Goal RASS -[address] brain : No acute process on 02/02 EEG: Diffuse encephalopathy Continue thiamine daily, multivitamin daily and folic acid 1 mg daily Respiratory: Acute hypoxic and hypercarbic respiratory failure Right sided empyema PRVC 18/650/1/5/40 Ventilator bundle Albuterol/ipratropium aerosols every 4 hours with albuterol aerosols every 2 hours. Dyspnea Continue with vent support keep sats >92%, vent day 16. SBT daily as marquez, mental status will not permit extubation Family leaning against trach/PEG. Palliative care following s/p right pigtail catheter placement 02/03, dislodged 02/13 night Pleural fluid analysis c/w empyema Cardiovascular: Mixed hypovolemic and septic shock, resolved Atrial fibrillation with rapid ventricular response Monitor HR and BP keep MAP>65mmHg Diltiazem 60mg QID currently on hold secondary to low blood pressures Status post 5 L crystalloid resuscitation in the emergency department. Now on HD for fluid removal Echo showed EF 60-65%, no RWMA s/p EMILY 02/10 : No vegetations, unremarkable Renal: Acute kidney injury-severe Acute rhabdomyolysis Obstructive uropathy Hematuria BPH Monitor renal function, I/O's, avoid nephrotoxins, s/p HD 02/14 Dr. Lopez intervention 02/16.. Currently with continuous bladder irrigations. Renal is following- Dr. Dinh. Hemodialysis per nephrology FEN/GI: Elevated LFT's with hyperbilirubinemia Acute protein calorie malnutrition: With hypoalbuminemia KUB abdomen 02/11: Non specific bowel gas pattern, no def mechanical obstruction Tube feeds ( Nepro) early at 50 cc an hour. Dietary consultation Ammonia level <10 on 02/02 Hepatitis profile: Non reactive, GI has followed. MRCP 02/10: No biliary obstruction. Lansoprazole 30 mg daily for GI prophylaxis Bowel regimen is currently been discontinued Currently on Xifaxan 550 twice daily. Heme/ID: Coagulopathy, probably secondary to end-stage liver disease Thrombocytopenia, secondary to shock Anemia requiring transfusion-due to severe hematuria Transfuse 1 unit PRBC today, repeat CBC in the afternoon On Ceftaroline, Cefepime, Oxacillin, micafungin per ID Monitor for signs of infections ( Fever, WBC) Follow up on cultures on BC from 02/11 NGTD 02/08 BC coag negative staph bacteremia 02/02 Sputum cx: GNR 02/02 Urine cx: Staph Aureus 02/03 BC: GPC / bottles 02/03 Fluid cx: NGTD HIV ab: non reactive Monitor CBC, coags s/p transfusion 1u PRBC on 02/11 s/p transfusion 1u PLT pheresis 02/08 Endocrine: Hyperglycemia of critical illness -- SSI with insulin aspart, TSH 1.6 Prophylaxis: GI Prophylaxis Lansoprazole DVT Prophylaxis -- SCDs - Subcu heparin on hold for thrombocytopenia, anemia requiring transfusion and gross hematuria Palliative care is following Lines: Right IJ vascath placed 02/08. Peripheral IV's Level 2 follow-up
--- NOTE | 2018-02-17 16:23 | P.PNPAL ---
Reason for Visit Reason for visit: a. To assist with evaluation and management of symptoms including: pain, anxiety b. To assist medical decision maker(s) with: better understanding of current medical conditions; weighing benefits/burdens of medical treatment options; making medical treatment decisions. Subjective Subjective/Interval History: Pt since last visit had anemia and hgb dropped. Urology saw pt and undervent cyctoscopy with clot removal yesterday. Pt bladder is being irrigated. Pt Failed PSV trial. Had hemodialysis. Pt on my visit is sedated for anxiety and pain. He remains intubated. Family/Friend Interactions: I left a voicemail for pt's brother, awaiting voicemail. I spoke with pt's son, Ronald. I explained pt has not been able to be weaned of ventilatory. Ronald who is the Health Care Proxy maintains that pt does not want peg or trach at this point. He is amenable to withdrawl and transition to comfort care. He wants to wait until I speak with his uncle. Objective Vital Signs: Vital Signs 02/16/18 18:00 02/16/18 19:00 02/16/18 20:00 Temperature 99.1 F 98.9 F 98.9 F Pulse Rate 70 70 76 Respiratory Rate 26 H 31 H 31 H Blood Pressure 112/66 112/66 111/67 Pulse Oximetry 97 99 98 02/16/18 21:00 02/16/18 22:00 02/16/18 23:00 Temperature 97.9 F Pulse Rate 68 76 77 Respiratory Rate 31 H 31 H 30 H Blood Pressure 100/58 L 97/51 L 92/53 L Pulse Oximetry 97 100 100 02/16/18 23:37 02/16/18 23:48 02/17/18 00:00 Temperature 97.7 F 97.9 F Pulse Rate 70 82 76 Respiratory Rate 30 H 30 H Blood Pressure 94/54 L 88/54 L Pulse Oximetry 98 100 02/17/18 00:17 02/17/18 01:00 02/17/18 02:00 Temperature 97.7 F 98.3 F Pulse Rate 77 76 77 Respiratory Rate 31 H 30 H 29 H Blood Pressure 94/54 L 94/51 L 91/77 L Pulse Oximetry 97 100 100 02/17/18 02:31 02/17/18 03:00 02/17/18 04:00 Temperature Pulse Rate 75 73 Respiratory Rate 29 H 28 H 28 H Blood Pressure 99/58 L 95/59 L Pulse Oximetry 98 100 100 02/17/18 05:00 02/17/18 05:15 02/17/18 05:30 Temperature Pulse Rate 72 73 71 Respiratory Rate 29 H 29 H 28 H Blood Pressure 99/55 L 97/52 L 101/57 L Pulse Oximetry 96 95 96 02/17/18 05:45 02/17/18 05:56 02/17/18 06:00 Temperature Pulse Rate 70 71 71 Respiratory Rate 28 H 29 H Blood Pressure 93/51 L 95/53 L Pulse Oximetry 95 96 02/17/18 06:15 02/17/18 06:30 02/17/18 06:45 Temperature Pulse Rate 67 68 67 Respiratory Rate 27 H 29 H 29 H Blood Pressure 100/56 L 101/56 L 97/55 L Pulse Oximetry 100 96 96 02/17/18 06:53 02/17/18 07:00 02/17/18 07:15 Temperature Pulse Rate 74 73 69 Respiratory Rate 24 29 H 28 H Blood Pressure 97/59 L 102/61 92/50 L Pulse Oximetry 100 98 97 02/17/18 07:30 02/17/18 07:45 02/17/18 08:00 Temperature 98.3 F Pulse Rate 68 71 69 Respiratory Rate 28 H 29 H 29 H Blood Pressure 97/54 L 101/55 L 98/57 L Pulse Oximetry 97 97 96 02/17/18 08:15 02/17/18 08:27 02/17/18 08:30 Temperature Pulse Rate 69 69 Respiratory Rate 29 H 29 H 30 H Blood Pressure 99/54 L 95/51 L Pulse Oximetry 96 96 96 02/17/18 08:45 02/17/18 09:00 02/17/18 09:15 Temperature Pulse Rate 69 66 67 Respiratory Rate 29 H 27 H 26 H Blood Pressure 92/51 L 95/53 L 94/51 L Pulse Oximetry 96 96 96 02/17/18 09:30 02/17/18 09:45 02/17/18 10:00 Temperature Pulse Rate 67 68 80 Respiratory Rate 27 H 27 H 26 H Blood Pressure 93/51 L 92/52 L 95/52 L Pulse Oximetry 97 97 97 02/17/18 10:15 02/17/18 10:30 02/17/18 10:45 Temperature Pulse Rate 69 72 80 Respiratory Rate 26 H 19 29 H Blood Pressure 93/51 L 90/51 L 101/57 L Pulse Oximetry 97 99 97 02/17/18 11:00 02/17/18 11:15 02/17/18 11:30 Temperature Pulse Rate 82 79 80 Respiratory Rate 27 H 28 H 29 H Blood Pressure 99/54 L 97/56 L 93/55 L Pulse Oximetry 97 97 97 02/17/18 11:45 02/17/18 12:00 02/17/18 12:15 Temperature 98.6 F Pulse Rate 79 74 75 Respiratory Rate 28 H 29 H 27 H Blood Pressure 93/52 L 93/53 L 91/51 L Pulse Oximetry 98 97 97 02/17/18 12:30 02/17/18 12:45 02/17/18 13:00 Temperature 98.8 F Pulse Rate 74 77 77 Respiratory Rate 25 H 22 20 Blood Pressure 94/54 L 98/54 L 98/53 L Pulse Oximetry 97 97 97 02/17/18 13:02 02/17/18 13:15 02/17/18 13:30 Temperature Pulse Rate 78 77 Respiratory Rate 18 21 21 Blood Pressure 98/54 L 99/57 L Pulse Oximetry 97 97 98 02/17/18 13:45 02/17/18 14:00 02/17/18 14:15 Temperature Pulse Rate 77 77 77 Respiratory Rate 19 18 18 Blood Pressure 92/53 L 94/53 L 99/56 L Pulse Oximetry 98 97 97 02/17/18 14:30 02/17/18 14:45 02/17/18 15:00 Temperature Pulse Rate 78 77 77 Respiratory Rate 19 18 18 Blood Pressure 98/55 L 99/56 L 99/55 L Pulse Oximetry 96 98 97 02/17/18 15:15 Temperature Pulse Rate 76 Respiratory Rate 18 Blood Pressure 96/55 L Pulse Oximetry 97 Intake & Output 02/16/18 02/17/18 02/17/18 18:59 06:59 18:59 Intake Total 2019 1136 / 1136 300 / 300 Output Total 7600 / 7600 4750 / 4750 Balance -5580 / -5580 -3614 / -3614 300 / 300 Intake: IV 300 / 300 900 / 900 300 / 300 Maxipime Inj 2,000 MG In NS Inj 200 / 200 100 ML @ 200 mls/hr IV.SIG Q24H LEROY Rx#:[id number] Teflaro Inj 600 MG In NS Inj 100 / 100 200 / 200 100 / 100 100 ML @ 100 mls/hr IV.SIG Q8H LEROY Rx#:[id number] Mycamine Inj 100 MG In NS Inj 100 / 100 100 ML @ 100 mls/hr IV.SIG Q24H LEROY Rx#:[id number] Prostaphlin Inj 2 GM In NS Inj 200 / 200 400 / 400 200 / 200 100 ML @ 200 mls/hr IV.SIG Q4H LEROY Rx#:[id number] Oral 0 / 0 Tube Feeding 60 / 60 116 / 116 Tube Irrigant 60 / 60 120 / 120 Water Bolus Amount 0 / 0 Anesthesia Amount 1200 / 1200 Intake (Blood Product) Amt 400 / 400 0 / 0 Rbc As-3 Leukoreduced Unit 400 / 400 [id number] Rbc As-3 Leukoreduced Unit 0 / 0 [id number] Bladder Irrigation Fluid - 0 / 0 Amount Retained Coude 0 / 0 Output: Urine 0 / 0 Stool 400 / 400 Pleural Fluid 0 / 0 Hemodialysis Amount 7000 / 7000 Estimated Blood Loss 200 / 200 Urine Amount (Catheter) 4750 / 4750 Indwelling Urethral Catheter 4750 / 4750 Gastric Drainage 0 / 0 Orogastric Tube 0 / 0 Chest Tube Drainage 0 / 0 #1 Right Anterior 0 / 0 Other: Bladder Irrigation Fluid - Amount Instilled Coude 450 Indwelling Urethral Catheter 3,500 Bladder Irrigation Fluid - Amount Drained Coude 3,600 Indwelling Urethral Catheter 3,500 Date of Last Bowel Movement 02/16/18 02/17/18 02/17/18 # Bowel Movements 0 2 # Incontinent Bowel Movements 0 2 Physical Exam: CONSTITUTIONAL/GENERAL: This is a critically ill 57 year old male, intubated TUBES/LINES/DRAINS: pigtail cathether, quezada, ET tube irrigation, central line. SKIN:jaundice HEAD: Atraumatic. Normocephalic. EYES: Pupils equal and round and reactive. Icteric scelera ENT: Hearing grossly normal. Nose without bleeding or purulent drainage. Throat ET tube present NECK: Trachea midline. Supple, nontender. No palpable thyroid enlargement or nodularity. CARDIOVASCULAR: Regular rate and rhythm without murmurs, gallops, or rubs. No JVD. RESPIRATORY/CHEST:Rhonchi bilaterally. GASTROINTESTINAL: Abdomen distended. soft. BS present. GENITOURINARY: Without palpable bladder distension. Quezada catheter in place. MUSCULOSKELETAL: Extremities without clubbing, cyanosis. 2+ edema LYMPHATICS: No palpable cervical or supraclavicular adenopathy. NEUROLOGICAL: Intubated PSYCHIATRIC: unable to elicit Diagnostic Tests Laboratory: Laboratory Results - last 72 hr 02/10/18 02/10/18 02/14/18 14:19 14:19 13:00 WBC RBC Hgb Hct MCV MCH MCHC RDW Plt Count MPV Prelim Diff (Auto) Neut % (Auto) Lymph % (Auto) [place] % (Auto) Eos % (Auto) Baso % (Auto) Neut # (Auto) Lymph # (Auto) [place] # (Auto) Eos # (Auto) Baso # (Auto) WBC Differential Diff Scan Seg Neuts % (Manual) Band Neuts % (Manual) Lymphocytes % (Manual) Monocytes % (Manual) Myelocytes % (Man) Abs Neuts (Manual) Nucleated RBCs/100 WBC Differential Comment Toxic Granulation Platelet Estimate Platelet Morphology Stomatocytes PT INR APTT Fibrinogen Sodium Potassium Chloride Carbon Dioxide Anion Gap BUN Creatinine Estimated GFR POC Glucose Random Glucose Lactic Acid Calcium Phosphorus Magnesium Total Bilirubin AST ALT Alkaline Phosphatase Total Protein Albumin Urine Color Urine Clarity Urine pH Ur Specific [place] Urine Protein Urine Glucose (UA) Urine Ketones Urine Occult Blood Urine Nitrate Urine Bilirubin Urine Urobilinogen Ur Leukocyte Esterase Urine RBC Urine WBC Urine WBC Clumps Urine Bacteria Micro UA Comment Urine Culture Comments Urine Eosinophils Mitochondria M2 IgG Ab Less than 20.0 Hemochromatosis Source Not Reportable Hemochromat Specimen Wb whole blood Hemochromatosis Method . Heredit Hemochromatosis See below Hemochromatosis Results . Hemochromatosis Interp . Hemochromatosis Review See below MTS Gel Crossmatch See Detail Bld Prod Order Comment 02/14/18 02/14/18 02/15/18 17:30 21:37 00:07 WBC RBC Hgb Hct MCV MCH MCHC RDW Plt Count MPV Prelim Diff (Auto) Neut % (Auto) Lymph % (Auto) [place] % (Auto) Eos % (Auto) Baso % (Auto) Neut # (Auto) Lymph # (Auto) [place] # (Auto) Eos # (Auto) Baso # (Auto) WBC Differential Diff Scan Seg Neuts % (Manual) Band Neuts % (Manual) Lymphocytes % (Manual) Monocytes % (Manual) Myelocytes % (Man) Abs Neuts (Manual) Nucleated RBCs/100 WBC Differential Comment Toxic Granulation Platelet Estimate Platelet Morphology Stomatocytes PT INR APTT Fibrinogen Sodium Potassium Chloride Carbon Dioxide Anion Gap BUN Creatinine Estimated GFR POC Glucose 181 H 201 H 285 H Random Glucose Lactic Acid Calcium Phosphorus Magnesium Total Bilirubin AST ALT Alkaline Phosphatase Total Protein Albumin Urine Color Urine Clarity Urine pH Ur Specific [place] Urine Protein Urine Glucose (UA) Urine Ketones Urine Occult Blood Urine Nitrate Urine Bilirubin Urine Urobilinogen Ur Leukocyte Esterase Urine RBC Urine WBC Urine WBC Clumps Urine Bacteria Micro UA Comment Urine Culture Comments Urine Eosinophils Mitochondria M2 IgG Ab Hemochromatosis Source Hemochromat Specimen Hemochromatosis Method Heredit Hemochromatosis Hemochromatosis Results Hemochromatosis Interp Hemochromatosis Review [facility] Gel Crossmatch Bld Prod Order Comment 02/15/18 02/15/18 02/15/18 01:30 01:30 02:25 WBC 3.4 L RBC 2.43 L Hgb 7.4 L Hct 22.2 L MCV 91.5 MCH 30.5 MCHC 33.3 RDW 18.1 H Plt Count 133 L MPV 9.6 Prelim Diff (Auto) Neut % (Auto) Lymph % (Auto) [place] % (Auto) Eos % (Auto) Baso % (Auto) Neut # (Auto) Lymph # (Auto) [place] # (Auto) Eos # (Auto) Baso # (Auto) WBC Differential Diff Scan Seg Neuts % (Manual) Band Neuts % (Manual) Lymphocytes % (Manual) Monocytes % (Manual) Myelocytes % (Man) Abs Neuts (Manual) Nucleated RBCs/100 WBC Differential Comment Toxic Granulation Platelet Estimate Platelet Morphology Stomatocytes PT 11.4 INR 1.1 APTT 27.9 Fibrinogen 401 H Sodium Potassium Chloride Carbon Dioxide Anion Gap BUN Creatinine Estimated GFR POC Glucose Random Glucose Lactic Acid Calcium Phosphorus Magnesium Total Bilirubin AST ALT Alkaline Phosphatase Total Protein Albumin Urine Color Urine Clarity Urine pH Ur Specific [place] Urine Protein Urine Glucose (UA) Urine Ketones Urine Occult Blood Urine Nitrate Urine Bilirubin Urine Urobilinogen Ur Leukocyte Esterase Urine RBC Urine WBC Urine WBC Clumps Urine Bacteria Micro UA Comment Urine Culture Comments Urine Eosinophils None seen Mitochondria M2 IgG Ab Hemochromatosis Source Hemochromat Specimen Hemochromatosis Method Heredit Hemochromatosis Hemochromatosis Results Hemochromatosis Interp Hemochromatosis Review [facility] Gel Crossmatch Bld Prod Order Comment 02/15/18 02/15/18 02/15/18 02:25 05:56 10:20 WBC RBC Hgb Hct MCV MCH MCHC RDW Plt Count MPV Prelim Diff (Auto) Neut % (Auto) Lymph % (Auto) [place] % (Auto) Eos % (Auto) Baso % (Auto) Neut # (Auto) Lymph # (Auto) [place] # (Auto) Eos # (Auto) Baso # (Auto) WBC Differential Diff Scan Seg Neuts % (Manual) Band Neuts % (Manual) Lymphocytes % (Manual) Monocytes % (Manual) Myelocytes % (Man) Abs Neuts (Manual) Nucleated RBCs/100 WBC Differential Comment Toxic Granulation Platelet Estimate Platelet Morphology Stomatocytes PT INR APTT Fibrinogen Sodium 144 Potassium 4.6 D Chloride 106 Carbon Dioxide 20.0 L Anion Gap 18 H BUN 71 H Creatinine 5.15 H Estimated GFR 12 L POC Glucose 137 H Random Glucose 159 H D Lactic Acid Calcium 7.9 L D Phosphorus Magnesium Total Bilirubin 3.6 H AST 52 H ALT 23 Alkaline Phosphatase 464 H Total Protein 5.6 L Albumin 1.5 L Urine Color Red Urine Clarity Cloudy H Urine pH 8.0 Ur Specific [place] 1.018 Urine Protein 500 or greater Urine Glucose (UA) 150 H Urine Ketones Negative Urine Occult Blood Large H Urine Nitrate Negative Urine Bilirubin Negative Urine Urobilinogen Less than 2 Ur Leukocyte Esterase Negative Urine RBC Urine WBC Urine WBC Clumps Many H Urine Bacteria Many H Micro UA Comment Cath-culture ind Urine Culture Comments Cath-cult indicated Urine Eosinophils Mitochondria M2 IgG Ab Hemochromatosis Source Hemochromat Specimen Hemochromatosis Method Heredit Hemochromatosis Hemochromatosis Results Hemochromatosis Interp Hemochromatosis Review MTS Gel Crossmatch Bld Prod Order Comment 02/15/18 02/15/18 02/15/18 11:18 17:59 21:53 WBC RBC Hgb Hct MCV MCH MCHC RDW Plt Count MPV Prelim Diff (Auto) Neut % (Auto) Lymph % (Auto) [place] % (Auto) Eos % (Auto) Baso % (Auto) Neut # (Auto) Lymph # (Auto) [place] # (Auto) Eos # (Auto) Baso # (Auto) WBC Differential Diff Scan Seg Neuts % (Manual) Band Neuts % (Manual) Lymphocytes % (Manual) Monocytes % (Manual) Myelocytes % (Man) Abs Neuts (Manual) Nucleated RBCs/100 WBC Differential Comment Toxic Granulation Platelet Estimate Platelet Morphology Stomatocytes PT INR APTT Fibrinogen Sodium Potassium Chloride Carbon Dioxide Anion Gap BUN Creatinine Estimated GFR POC Glucose 165 H 149 H 199 H Random Glucose Lactic Acid Calcium Phosphorus Magnesium Total Bilirubin AST ALT Alkaline Phosphatase Total Protein Albumin Urine Color Urine Clarity Urine pH Ur Specific [place] Urine Protein Urine Glucose (UA) Urine Ketones Urine Occult Blood Urine Nitrate Urine Bilirubin Urine Urobilinogen Ur Leukocyte Esterase Urine RBC Urine WBC Urine WBC Clumps Urine Bacteria Micro UA Comment Urine Culture Comments Urine Eosinophils Mitochondria M2 IgG Ab Hemochromatosis Source Hemochromat Specimen Hemochromatosis Method Heredit Hemochromatosis Hemochromatosis Results Hemochromatosis Interp Hemochromatosis Review MTS Gel Crossmatch Bld Prod Order Comment 02/16/18 02/16/18 02/16/18 00:32 04:20 04:20 WBC 5.0 RBC 2.05 L Hgb 6.2 L* Hct 18.9 L* MCV 92.2 MCH 30.4 MCHC 32.9 RDW 18.7 H Plt Count 166 MPV 9.8 Prelim Diff (Auto) Slide review pending Neut % (Auto) 82.0 H Lymph % (Auto) 8.6 L [place] % (Auto) 8.1 H Eos % (Auto) 0.3 Baso % (Auto) 1.0 Neut # (Auto) 4.1 Lymph # (Auto) 0.4 L [place] # (Auto) 0.4 Eos # (Auto) 0.0 Baso # (Auto) 0.0 WBC Differential . Diff Scan Auto diff confirmed Seg Neuts % (Manual) Band Neuts % (Manual) Lymphocytes % (Manual) Monocytes % (Manual) Myelocytes % (Man) Abs Neuts (Manual) Nucleated RBCs/100 WBC Differential Comment . Toxic Granulation Platelet Estimate Platelet Morphology Stomatocytes 1+ H PT INR APTT Fibrinogen Sodium 145 Potassium 4.3 Chloride 107 Carbon Dioxide 18.5 L Anion Gap 20 H BUN 85 H Creatinine 5.91 H Estimated GFR 10 L POC Glucose 213 H Random Glucose 196 H Lactic Acid Calcium 7.9 L Phosphorus 8.0 H Magnesium 2.4 Total Bilirubin AST ALT Alkaline Phosphatase Total Protein Albumin Urine Color Urine Clarity Urine pH Ur Specific [place] Urine Protein Urine Glucose (UA) Urine Ketones Urine Occult Blood Urine Nitrate Urine Bilirubin Urine Urobilinogen Ur Leukocyte Esterase Urine RBC Urine WBC Urine WBC Clumps Urine Bacteria Micro UA Comment Urine Culture Comments Urine Eosinophils Mitochondria M2 IgG Ab Hemochromatosis Source Hemochromat Specimen Hemochromatosis Method Heredit Hemochromatosis Hemochromatosis Results Hemochromatosis Interp Hemochromatosis Review MTS Gel Crossmatch Bld Prod Order Comment 02/16/18 02/16/18 02/16/18 04:20 04:30 05:02 WBC RBC Hgb Hct MCV MCH MCHC RDW Plt Count MPV Prelim Diff (Auto) Neut % (Auto) Lymph % (Auto) [place] % (Auto) Eos % (Auto) Baso % (Auto) Neut # (Auto) Lymph # (Auto) [place] # (Auto) Eos # (Auto) Baso # (Auto) WBC Differential Diff Scan Seg Neuts % (Manual) Band Neuts % (Manual) Lymphocytes % (Manual) Monocytes % (Manual) Myelocytes % (Man) Abs Neuts (Manual) Nucleated RBCs/100 WBC Differential Comment Toxic Granulation Platelet Estimate Platelet Morphology Stomatocytes PT 11.4 INR 1.1 APTT 28.7 Fibrinogen Sodium Potassium Chloride Carbon Dioxide Anion Gap BUN Creatinine Estimated GFR POC Glucose Random Glucose Lactic Acid 1.8 Calcium Phosphorus Magnesium Total Bilirubin AST ALT Alkaline Phosphatase Total Protein Albumin Urine Color Urine Clarity Urine pH Ur Specific [place] Urine Protein Urine Glucose (UA) Urine Ketones Urine Occult Blood Urine Nitrate Urine Bilirubin Urine Urobilinogen Ur Leukocyte Esterase Urine RBC Urine WBC Urine WBC Clumps Urine Bacteria Micro UA Comment Urine Culture Comments Urine Eosinophils Mitochondria M2 IgG Ab Hemochromatosis Source Hemochromat Specimen Hemochromatosis Method Heredit Hemochromatosis Hemochromatosis Results Hemochromatosis Interp Hemochromatosis Review MTS Gel Crossmatch See Detail Bld Prod Order Comment 02/16/18 02/16/18 02/16/18 05:25 12:37 15:11 WBC RBC Hgb Hct MCV MCH MCHC RDW Plt Count MPV Prelim Diff (Auto) Neut % (Auto) Lymph % (Auto) [place] % (Auto) Eos % (Auto) Baso % (Auto) Neut # (Auto) Lymph # (Auto) [place] # (Auto) Eos # (Auto) Baso # (Auto) WBC Differential Diff Scan Seg Neuts % (Manual) Band Neuts % (Manual) Lymphocytes % (Manual) Monocytes % (Manual) Myelocytes % (Man) Abs Neuts (Manual) Nucleated RBCs/100 WBC Differential Comment Toxic Granulation Platelet Estimate Platelet Morphology Stomatocytes PT INR APTT Fibrinogen Sodium Potassium Chloride Carbon Dioxide Anion Gap BUN Creatinine Estimated GFR POC Glucose 201 H 155 H 154 H Random Glucose Lactic Acid Calcium Phosphorus Magnesium Total Bilirubin AST ALT Alkaline Phosphatase Total Protein Albumin Urine Color Urine Clarity Urine pH Ur Specific [place] Urine Protein Urine Glucose (UA) Urine Ketones Urine Occult Blood Urine Nitrate Urine Bilirubin Urine Urobilinogen Ur Leukocyte Esterase Urine RBC Urine WBC Urine WBC Clumps Urine Bacteria Micro UA Comment Urine Culture Comments Urine Eosinophils Mitochondria M2 IgG Ab Hemochromatosis Source Hemochromat Specimen Hemochromatosis Method Heredit Hemochromatosis Hemochromatosis Results Hemochromatosis Interp Hemochromatosis Review MTS Gel Crossmatch Bld Prod Order Comment 02/16/18 02/16/18 02/16/18 15:23 18:08 18:49 WBC 3.3 L RBC 2.36 L Hgb 7.0 L Hct 21.4 L MCV 90.6 MCH 29.8 MCHC 32.9 RDW 21.8 H D Plt Count 133 L MPV 9.4 Prelim Diff (Auto) Neut % (Auto) Lymph % (Auto) [place] % (Auto) Eos % (Auto) Baso % (Auto) Neut # (Auto) Lymph # (Auto) [place] # (Auto) Eos # (Auto) Baso # (Auto) WBC Differential Diff Scan Seg Neuts % (Manual) Band Neuts % (Manual) Lymphocytes % (Manual) Monocytes % (Manual) Myelocytes % (Man) Abs Neuts (Manual) Nucleated RBCs/100 WBC Differential Comment Toxic Granulation Platelet Estimate Platelet Morphology Stomatocytes PT INR APTT Fibrinogen Sodium Potassium Chloride Carbon Dioxide Anion Gap BUN Creatinine Estimated GFR POC Glucose 165 H Random Glucose Lactic Acid Calcium Phosphorus Magnesium Total Bilirubin AST ALT Alkaline Phosphatase Total Protein Albumin Urine Color Urine Clarity Urine pH Ur Specific [place] Urine Protein Urine Glucose (UA) Urine Ketones Urine Occult Blood Urine Nitrate Urine Bilirubin Urine Urobilinogen Ur Leukocyte Esterase Urine RBC Urine WBC Urine WBC Clumps Urine Bacteria Micro UA Comment Urine Culture Comments Urine Eosinophils Mitochondria M2 IgG Ab Hemochromatosis Source Hemochromat Specimen Hemochromatosis Method Heredit Hemochromatosis Hemochromatosis Results Hemochromatosis Interp Hemochromatosis Review MTS Gel Crossmatch See Detail Bld Prod Order Comment 02/16/18 02/16/18 02/17/18 21:05 23:58 05:44 WBC RBC Hgb Hct MCV MCH MCHC RDW Plt Count MPV Prelim Diff (Auto) Neut % (Auto) Lymph % (Auto) [place] % (Auto) Eos % (Auto) Baso % (Auto) Neut # (Auto) Lymph # (Auto) [place] # (Auto) Eos # (Auto) Baso # (Auto) WBC Differential Diff Scan Seg Neuts % (Manual) Band Neuts % (Manual) Lymphocytes % (Manual) Monocytes % (Manual) Myelocytes % (Man) Abs Neuts (Manual) Nucleated RBCs/100 WBC Differential Comment Toxic Granulation Platelet Estimate Platelet Morphology Stomatocytes PT INR APTT Fibrinogen Sodium Potassium Chloride Carbon Dioxide Anion Gap BUN Creatinine Estimated GFR POC Glucose 164 H 142 H Random Glucose Lactic Acid Calcium Phosphorus Magnesium Total Bilirubin AST ALT Alkaline Phosphatase Total Protein Albumin Urine Color Urine Clarity Urine pH Ur Specific [place] Urine Protein Urine Glucose (UA) Urine Ketones Urine Occult Blood Urine Nitrate Urine Bilirubin Urine Urobilinogen Ur Leukocyte Esterase Urine RBC Urine WBC Urine WBC Clumps Urine Bacteria Micro UA Comment Urine Culture Comments Urine Eosinophils Mitochondria M2 IgG Ab Hemochromatosis Source Hemochromat Specimen Hemochromatosis Method Heredit Hemochromatosis Hemochromatosis Results Hemochromatosis Interp Hemochromatosis Review MTS Gel Crossmatch See Detail Bld Prod Order Comment Cancelled 02/17/18 02/17/18 02/17/18 06:00 06:00 11:21 WBC 6.1 D RBC 2.64 L Hgb 7.7 L Hct 23.1 L MCV 87.6 MCH 29.3 MCHC 33.4 RDW 20.2 H Plt Count 128 L MPV 9.6 Prelim Diff (Auto) Slide review pending Neut % (Auto) 84.7 H Lymph % (Auto) 9.9 [place] % (Auto) 4.6 Eos % (Auto) 0.2 Baso % (Auto) 0.6 Neut # (Auto) 5.2 Lymph # (Auto) 0.6 L [place] # (Auto) 0.3 Eos # (Auto) 0.0 Baso # (Auto) 0.0 WBC Differential Manual diff final Diff Scan Seg Neuts % (Manual) 68 Band Neuts % (Manual) 19 H Lymphocytes % (Manual) 3 L Monocytes % (Manual) 8 Myelocytes % (Man) 2 H Abs Neuts (Manual) 5.4 Nucleated RBCs/100 WBC 1 H Differential Comment . Toxic Granulation 1+ H Platelet Estimate Low L Platelet Morphology Normal Stomatocytes PT INR APTT Fibrinogen Sodium 140 Potassium 4.6 Chloride 104 Carbon Dioxide 18.2 L Anion Gap 18 H BUN 69 H Creatinine 5.09 H Estimated GFR 12 L POC Glucose 113 H Random Glucose 129 H Lactic Acid Calcium 7.9 L Phosphorus 7.3 H Magnesium 2.0 Total Bilirubin 3.4 H AST 51 H ALT 23 Alkaline Phosphatase 446 H Total Protein 5.9 L Albumin 1.2 L Urine Color Urine Clarity Urine pH Ur Specific [place] Urine Protein Urine Glucose (UA) Urine Ketones Urine Occult Blood Urine Nitrate Urine Bilirubin Urine Urobilinogen Ur Leukocyte Esterase Urine RBC Urine WBC Urine WBC Clumps Urine Bacteria Micro UA Comment Urine Culture Comments Urine Eosinophils Mitochondria M2 IgG Ab Hemochromatosis Source Hemochromat Specimen Hemochromatosis Method Heredit Hemochromatosis Hemochromatosis Results Hemochromatosis Interp Hemochromatosis Review MTS Gel Crossmatch Bld Prod Order Comment 02/17/18 02/17/18 15:19 15:48 WBC RBC Hgb Hct MCV MCH MCHC RDW Plt Count MPV Prelim Diff (Auto) Neut % (Auto) Lymph % (Auto) [place] % (Auto) Eos % (Auto) Baso % (Auto) Neut # (Auto) Lymph # (Auto) [place] # (Auto) Eos # (Auto) Baso # (Auto) WBC Differential Diff Scan Seg Neuts % (Manual) Band Neuts % (Manual) Lymphocytes % (Manual) Monocytes % (Manual) Myelocytes % (Man) Abs Neuts (Manual) Nucleated RBCs/100 WBC Differential Comment Toxic Granulation Platelet Estimate Platelet Morphology Stomatocytes PT INR APTT Fibrinogen Sodium Potassium Chloride Carbon Dioxide Anion Gap BUN Creatinine Estimated GFR POC Glucose 56 L 124 H Random Glucose Lactic Acid Calcium Phosphorus Magnesium Total Bilirubin AST ALT Alkaline Phosphatase Total Protein Albumin Urine Color Urine Clarity Urine pH Ur Specific [place] Urine Protein Urine Glucose (UA) Urine Ketones Urine Occult Blood Urine Nitrate Urine Bilirubin Urine Urobilinogen Ur Leukocyte Esterase Urine RBC Urine WBC Urine WBC Clumps Urine Bacteria Micro UA Comment Urine Culture Comments Urine Eosinophils Mitochondria M2 IgG Ab Hemochromatosis Source Hemochromat Specimen Hemochromatosis Method Heredit Hemochromatosis Hemochromatosis Results Hemochromatosis Interp Hemochromatosis Review MTS Gel Crossmatch Bld Prod Order Comment Result Diagrams: 02/17/18 06:00 02/17/18 06:00 Microbiology: Microbiology 02/14/18 10:10 Aerobic Blood Culture - Preliminary Blood - Peripheral No growth in 3 days Anaerobic Blood Culture - Preliminary No growth in 3 days 02/14/18 10:20 Aerobic Blood Culture - Preliminary Blood - Peripheral No growth in 3 days Anaerobic Blood Culture - Preliminary No growth in 3 days 02/15/18 02:25 Urine Culture - Final Catheterized Urine No growth in 48 hours 02/14/18 11:44 Gram Stain - Final Sputum - Endotracheal Sputum Culture - Final Heavy growth normal respiratory km 02/11/18 04:50 Aerobic Blood Culture - Final Blood - Peripheral No growth in 5 days Anaerobic Blood Culture - Final No growth in 5 days 02/11/18 04:57 Aerobic Blood Culture - Final Blood - Peripheral No growth in 5 days Anaerobic Blood Culture - Final No growth in 5 days Assessment and Plan - Disease Oriented Problem List (1) Acute renal failure (ARF) (2) Sepsis (3) Respiratory failure (4) Hypotension (5) Cholelithiasis Pertinent Non-Medical Issues: Psychosocial: Veteram. disablilty (back pain) and x 3. Have one son Ronald Forrester from 2nd marriage. Spiritual:chrisitan Legal:no known advacnce directive per bother. Ethical issues impacting care: Important Contacts: (Son/ health care proxy) [phone] (brother)Chris Forrester [phone] Prognosis: 57 year old hx of etoh abuse, came in with severe sepsis, tachycardia, respiratory failure. Pt continue to be in sepsis with pressor support, mechanically ventilated, on dialysis, encephalopathic, hepatic shock. Prognosis is guarded. Code Status: No Code DNR (no cpr/acls/shock) Plan: == capacity- does not have capacity to make medical decision. Critically ill, encephalopathic, multi-organ failure. I do not anticipate return to have capacity unless pt becomes non critical. == health care decision maker: x 3, and x 3. Son from 2nd marriage Ronald Forrester is medical decision maker == code- DNR. No reintubation if medically extubated. Goals of care- I left a voicemail for pt's brother, awaiting voicemail. I spoke with pt's son, Ronald. I explained pt has not been able to be weaned of ventilatory. Ronald who is the Health Care Proxy maintains that pt does not want peg or trach at this point. He is amenable to withdrawal and transition to comfort care. He wants to wait until I speak with his uncle before we proceed. Timing is pending. symptom: pain- tachycardia, chronic back pain, found on the floor, hospitalize debility- fentanyl protocol placed anxiety- associated with dyspnea and discomfort. -no new med rec. == Palliative care will follow to make recommendation for symptom managment, and review goals of care as clinical conditions evolves. d/w with critical care Dr. Hughes. Attestation Attestation: To help prompt me to consider important information that might be impacting today's encounter and assessment, information from prior notes written by myself or my colleagues may have been "brought forward" into today's note. My signature on this note, however, is an attestation that I personally performed the exam, history, and/or decision-making noted today, and, unless otherwise indicated, the interactions with patient, family, and staff as well as the review of records all occurred today. I also attest that the listed assessment and stated plan reflect my best clinical judgment today based on the combination of historical information, prior notes, and today's exam/ interactions. When time spent is documented, it refers only to time spent today by the signer, or if indicated, combined time spent today by collaborating physician/nurse practitioner.
[2018-02-17] MEDS: Hypromellose 0.3% Opth Gel 10 GM Bottle EACH EYE SCH (16:48)
--- NOTE | 2018-02-17 17:20 | P.PNNP ---
Subjective Interval history: Sedated on ventilator. Continuous bladder irrigation discontinued, urine clear. <GabrieldejaJeanna - Last Filed: 02/17/18 17:13> Physical Exam Vital signs: Vital Signs 02/16/18 18:00 02/16/18 19:00 02/16/18 20:00 Temperature 99.1 F 98.9 F 98.9 F Pulse Rate 70 70 76 Respiratory Rate 26 H 31 H 31 H Blood Pressure 112/66 112/66 111/67 Pulse Oximetry 97 99 98 02/16/18 21:00 02/16/18 22:00 02/16/18 23:00 Temperature 97.9 F Pulse Rate 68 76 77 Respiratory Rate 31 H 31 H 30 H Blood Pressure 100/58 L 97/51 L 92/53 L Pulse Oximetry 97 100 100 02/16/18 23:37 02/16/18 23:48 02/17/18 00:00 Temperature 97.7 F 97.9 F Pulse Rate 70 82 76 Respiratory Rate 30 H 30 H Blood Pressure 94/54 L 88/54 L Pulse Oximetry 98 100 02/17/18 00:17 02/17/18 01:00 02/17/18 02:00 Temperature 97.7 F 98.3 F Pulse Rate 77 76 77 Respiratory Rate 31 H 30 H 29 H Blood Pressure 94/54 L 94/51 L 91/77 L Pulse Oximetry 97 100 100 02/17/18 02:31 02/17/18 03:00 02/17/18 04:00 Temperature Pulse Rate 75 73 Respiratory Rate 29 H 28 H 28 H Blood Pressure 99/58 L 95/59 L Pulse Oximetry 98 100 100 02/17/18 05:00 02/17/18 05:15 02/17/18 05:30 Temperature Pulse Rate 72 73 71 Respiratory Rate 29 H 29 H 28 H Blood Pressure 99/55 L 97/52 L 101/57 L Pulse Oximetry 96 95 96 02/17/18 05:45 02/17/18 05:56 02/17/18 06:00 Temperature Pulse Rate 70 71 71 Respiratory Rate 28 H 29 H Blood Pressure 93/51 L 95/53 L Pulse Oximetry 95 96 02/17/18 06:15 02/17/18 06:30 02/17/18 06:45 Temperature Pulse Rate 67 68 67 Respiratory Rate 27 H 29 H 29 H Blood Pressure 100/56 L 101/56 L 97/55 L Pulse Oximetry 100 96 96 02/17/18 06:53 02/17/18 07:00 02/17/18 07:15 Temperature Pulse Rate 74 73 69 Respiratory Rate 24 29 H 28 H Blood Pressure 97/59 L 102/61 92/50 L Pulse Oximetry 100 98 97 02/17/18 07:30 02/17/18 07:45 02/17/18 08:00 Temperature 98.3 F Pulse Rate 68 71 69 Respiratory Rate 28 H 29 H 29 H Blood Pressure 97/54 L 101/55 L 98/57 L Pulse Oximetry 97 97 96 02/17/18 08:15 02/17/18 08:27 02/17/18 08:30 Temperature Pulse Rate 69 69 Respiratory Rate 29 H 29 H 30 H Blood Pressure 99/54 L 95/51 L Pulse Oximetry 96 96 96 02/17/18 08:45 02/17/18 09:00 02/17/18 09:15 Temperature Pulse Rate 69 66 67 Respiratory Rate 29 H 27 H 26 H Blood Pressure 92/51 L 95/53 L 94/51 L Pulse Oximetry 96 96 96 02/17/18 09:30 02/17/18 09:45 02/17/18 10:00 Temperature Pulse Rate 67 68 80 Respiratory Rate 27 H 27 H 26 H Blood Pressure 93/51 L 92/52 L 95/52 L Pulse Oximetry 97 97 97 02/17/18 10:15 02/17/18 10:30 02/17/18 10:45 Temperature Pulse Rate 69 72 80 Respiratory Rate 26 H 19 29 H Blood Pressure 93/51 L 90/51 L 101/57 L Pulse Oximetry 97 99 97 02/17/18 11:00 02/17/18 11:15 02/17/18 11:30 Temperature Pulse Rate 82 79 80 Respiratory Rate 27 H 28 H 29 H Blood Pressure 99/54 L 97/56 L 93/55 L Pulse Oximetry 97 97 97 02/17/18 11:45 02/17/18 12:00 02/17/18 12:15 Temperature 98.6 F Pulse Rate 79 74 75 Respiratory Rate 28 H 29 H 27 H Blood Pressure 93/52 L 93/53 L 91/51 L Pulse Oximetry 98 97 97 02/17/18 12:30 02/17/18 12:45 02/17/18 13:00 Temperature 98.8 F Pulse Rate 74 77 77 Respiratory Rate 25 H 22 20 Blood Pressure 94/54 L 98/54 L 98/53 L Pulse Oximetry 97 97 97 02/17/18 13:02 02/17/18 13:15 02/17/18 13:30 Temperature Pulse Rate 78 77 Respiratory Rate 18 21 21 Blood Pressure 98/54 L 99/57 L Pulse Oximetry 97 97 98 02/17/18 13:45 02/17/18 14:00 02/17/18 14:15 Temperature Pulse Rate 77 77 77 Respiratory Rate 19 18 18 Blood Pressure 92/53 L 94/53 L 99/56 L Pulse Oximetry 98 97 97 02/17/18 14:30 02/17/18 14:45 02/17/18 15:00 Temperature Pulse Rate 78 77 77 Respiratory Rate 19 18 18 Blood Pressure 98/55 L 99/56 L 99/55 L Pulse Oximetry 96 98 97 02/17/18 15:15 02/17/18 15:30 02/17/18 15:45 Temperature Pulse Rate 76 77 76 Respiratory Rate 18 18 18 Blood Pressure 96/55 L 96/55 L 99/58 L Pulse Oximetry 97 96 96 02/17/18 16:00 02/17/18 16:15 02/17/18 16:30 Temperature 98.6 F Pulse Rate 76 76 75 Respiratory Rate 18 18 19 Blood Pressure 97/55 L 98/54 L 108/61 Pulse Oximetry 96 96 96 02/17/18 16:45 Temperature Pulse Rate 74 Respiratory Rate 18 Blood Pressure 94/50 L Pulse Oximetry 97 Intake & Output 02/16/18 02/17/18 02/17/18 18:59 06:59 18:59 Intake Total 2019 / 2019 1136 / 1136 400 / 400 Output Total 7600 / 7600 4750 / 4750 Balance -5580 / -5580 -3614 / -3614 400 / 400 Intake: IV 300 / 300 900 / 900 400 / 400 Maxipime Inj 2,000 MG In NS Inj 200 / 200 100 ML @ 200 mls/hr IV.SIG Q24H LEROY Rx#:[id number] Teflaro Inj 600 MG In NS Inj 100 / 100 200 / 200 200 / 200 100 ML @ 100 mls/hr IV.SIG Q8H LEROY Rx#:[id number] Mycamine Inj 100 MG In NS Inj 100 / 100 100 ML @ 100 mls/hr IV.SIG Q24H LEROY Rx#:[id number] Prostaphlin Inj 2 GM In NS Inj 200 / 200 400 / 400 200 / 200 100 ML @ 200 mls/hr IV.SIG Q4H LEROY Rx#:[id number] Oral 0 / 0 Tube Feeding 60 / 60 116 / 116 Tube Irrigant 60 / 60 120 / 120 Water Bolus Amount 0 / 0 Anesthesia Amount 1200 / 1200 Intake (Blood Product) Amt 400 / 400 0 / 0 Rbc As-3 Leukoreduced Unit 400 / 400 [id number] Rbc As-3 Leukoreduced Unit 0 / 0 [id number] Bladder Irrigation Fluid - 0 / 0 Amount Retained Coude 0 / 0 Output: Urine 0 / 0 Stool 400 / 400 Pleural Fluid 0 / 0 Hemodialysis Amount 7000 / 7000 Estimated Blood Loss 200 / 200 Urine Amount (Catheter) 4750 / 4750 Indwelling Urethral Catheter 4750 / 4750 Gastric Drainage 0 / 0 Orogastric Tube 0 / 0 Chest Tube Drainage 0 / 0 #1 Right Anterior 0 / 0 Other: Bladder Irrigation Fluid - Amount Instilled Coude 450 Indwelling Urethral Catheter 3,500 Bladder Irrigation Fluid - Amount Drained Coude 3,600 Indwelling Urethral Catheter 3,500 Date of Last Bowel Movement 02/16/18 02/17/18 02/17/18 # Bowel Movements 0 2 # Incontinent Bowel Movements 0 2 - Constitutional no acute distress - Routine HEENT Exam Head: Present: normocephalic ENT: Present: mucous membranes moist - Routine Neck Exam Absent: JVD - Routine Respiratory Exam Present: patient mechanically ventilated. Absent: rhonchi, wheezes, crackles - Routine Cardiovascular Exam Present: RRR - Routine Abdominal Exam Present: soft, normoactive bowel sounds - Routine Exam Scrotal: Present: swelling - Routine Extremities Exam Present: vascular access - Routine Skin Exam Present: dry, warm - Urinary Catheter Management Coude Cath placed during this visit: yes, but has since been removed by the nurse Urethral indwelling: Yes Reason for continuing: Hourly intake/output Insertion date: 02/02/18 Removal date: 02/15/18 Removal time: 19:45 Indwelling Urethral Catheter Cath placed during this visit: yes Reason for continuing: Acute urinary retention Insertion date: 02/15/18 Insertion time: 20:00 <Jeanna Franz - Last Filed: 02/17/18 17:13> Vital signs: Vital Signs 02/16/18 19:00 02/16/18 20:00 02/16/18 21:00 Temperature 98.9 F 98.9 F 97.9 F Pulse Rate 70 76 68 Respiratory Rate 31 H 31 H 31 H Blood Pressure 112/66 111/67 100/58 L Pulse Oximetry 99 98 97 02/16/18 22:00 02/16/18 23:00 02/16/18 23:37 Temperature Pulse Rate 76 77 70 Respiratory Rate 31 H 30 H Blood Pressure 97/51 L 92/53 L Pulse Oximetry 100 100 02/16/18 23:48 02/17/18 00:00 02/17/18 00:17 Temperature 97.7 F 97.9 F 97.7 F Pulse Rate 82 76 77 Respiratory Rate 30 H 30 H 31 H Blood Pressure 94/54 L 88/54 L 94/54 L Pulse Oximetry 98 100 97 02/17/18 01:00 02/17/18 02:00 02/17/18 02:31 Temperature 98.3 F Pulse Rate 76 77 Respiratory Rate 30 H 29 H 29 H Blood Pressure 94/51 L 91/77 L Pulse Oximetry 100 100 98 02/17/18 03:00 02/17/18 04:00 02/17/18 05:00 Temperature Pulse Rate 75 73 72 Respiratory Rate 28 H 28 H 29 H Blood Pressure 99/58 L 95/59 L 99/55 L Pulse Oximetry 100 100 96 02/17/18 05:15 02/17/18 05:30 02/17/18 05:45 Temperature Pulse Rate 73 71 70 Respiratory Rate 29 H 28 H 28 H Blood Pressure 97/52 L 101/57 L 93/51 L Pulse Oximetry 95 96 95 02/17/18 05:56 02/17/18 06:00 02/17/18 06:15 Temperature Pulse Rate 71 71 67 Respiratory Rate 29 H 27 H Blood Pressure 95/53 L 100/56 L Pulse Oximetry 96 100 02/17/18 06:30 02/17/18 06:45 02/17/18 06:53 Temperature Pulse Rate 68 67 74 Respiratory Rate 29 H 29 H 24 Blood Pressure 101/56 L 97/55 L 97/59 L Pulse Oximetry 96 96 100 02/17/18 07:00 02/17/18 07:15 02/17/18 07:30 Temperature Pulse Rate 73 69 68 Respiratory Rate 29 H 28 H 28 H Blood Pressure 102/61 92/50 L 97/54 L Pulse Oximetry 98 97 97 02/17/18 07:45 02/17/18 08:00 02/17/18 08:15 Temperature 98.3 F Pulse Rate 71 69 69 Respiratory Rate 29 H 29 H 29 H Blood Pressure 101/55 L 98/57 L 99/54 L Pulse Oximetry 97 96 96 02/17/18 08:27 02/17/18 08:30 02/17/18 08:45 Temperature Pulse Rate 69 69 Respiratory Rate 29 H 30 H 29 H Blood Pressure 95/51 L 92/51 L Pulse Oximetry 96 96 96 02/17/18 09:00 02/17/18 09:15 02/17/18 09:30 Temperature Pulse Rate 66 67 67 Respiratory Rate 27 H 26 H 27 H Blood Pressure 95/53 L 94/51 L 93/51 L Pulse Oximetry 96 96 97 02/17/18 09:45 02/17/18 10:00 02/17/18 10:15 Temperature Pulse Rate 68 80 69 Respiratory Rate 27 H 26 H 26 H Blood Pressure 92/52 L 95/52 L 93/51 L Pulse Oximetry 97 97 97 02/17/18 10:30 02/17/18 10:45 02/17/18 11:00 Temperature Pulse Rate 72 80 82 Respiratory Rate 19 29 H 27 H Blood Pressure 90/51 L 101/57 L 99/54 L Pulse Oximetry 99 97 97 02/17/18 11:15 02/17/18 11:30 02/17/18 11:45 Temperature Pulse Rate 79 80 79 Respiratory Rate 28 H 29 H 28 H Blood Pressure 97/56 L 93/55 L 93/52 L Pulse Oximetry 97 97 98 02/17/18 12:00 02/17/18 12:15 02/17/18 12:30 Temperature 98.6 F Pulse Rate 74 75 74 Respiratory Rate 29 H 27 H 25 H Blood Pressure 93/53 L 91/51 L 94/54 L Pulse Oximetry 97 97 97 02/17/18 12:45 02/17/18 13:00 02/17/18 13:02 Temperature 98.8 F Pulse Rate 77 77 Respiratory Rate 22 20 18 Blood Pressure 98/54 L 98/53 L Pulse Oximetry 97 97 97 02/17/18 13:15 02/17/18 13:30 02/17/18 13:45 Temperature Pulse Rate 78 77 77 Respiratory Rate 21 21 19 Blood Pressure 98/54 L 99/57 L 92/53 L Pulse Oximetry 97 98 98 02/17/18 14:00 02/17/18 14:15 02/17/18 14:30 Temperature Pulse Rate 77 77 78 Respiratory Rate 18 18 19 Blood Pressure 94/53 L 99/56 L 98/55 L Pulse Oximetry 97 97 96 02/17/18 14:45 02/17/18 15:00 02/17/18 15:15 Temperature Pulse Rate 77 77 76 Respiratory Rate 18 18 18 Blood Pressure 99/56 L 99/55 L 96/55 L Pulse Oximetry 98 97 97 02/17/18 15:30 02/17/18 15:45 02/17/18 16:00 Temperature 98.6 F Pulse Rate 77 76 76 Respiratory Rate 18 18 18 Blood Pressure 96/55 L 99/58 L 97/55 L Pulse Oximetry 96 96 96 02/17/18 16:15 02/17/18 16:30 02/17/18 16:45 Temperature Pulse Rate 76 75 74 Respiratory Rate 18 19 18 Blood Pressure 98/54 L 108/61 94/50 L Pulse Oximetry 96 96 97 02/17/18 17:00 02/17/18 17:15 02/17/18 17:30 Temperature Pulse Rate 74 73 71 Respiratory Rate 18 18 18 Blood Pressure 92/50 L 93/52 L 93/53 L Pulse Oximetry 97 97 97 Intake & Output 02/16/18 02/17/18 02/17/18 18:59 06:59 18:59 Intake Total 2019 1136 / 1136 400 / 400 Output Total 7600 / 7600 4750 / 4750 Balance -5580 / -5580 -3614 / -3614 400 / 400 Intake: IV 300 / 300 900 / 900 400 / 400 Maxipime Inj 2,000 MG In NS Inj 200 / 200 100 ML @ 200 mls/hr IV.SIG Q24H LERYO Rx#:[id number] Teflaro Inj 600 MG In NS Inj 100 / 100 200 / 200 200 / 200 100 ML @ 100 mls/hr IV.SIG Q8H LEROY Rx#:[id number] Mycamine Inj 100 MG In NS Inj 100 / 100 100 ML @ 100 mls/hr IV.SIG Q24H LEROY Rx#:[id number] Prostaphlin Inj 2 GM In NS Inj 200 / 200 400 / 400 200 / 200 100 ML @ 200 mls/hr IV.SIG Q4H LEROY Rx#:[id number] Oral 0 / 0 Tube Feeding 60 / 60 116 / 116 Tube Irrigant 60 / 60 120 / 120 Water Bolus Amount 0 / 0 Anesthesia Amount 1200 / 1200 Intake (Blood Product) Amt 400 / 400 0 / 0 Rbc As-3 Leukoreduced Unit 400 / 400 [id number] Rbc As-3 Leukoreduced Unit 0 / 0 [id number] Bladder Irrigation Fluid - 0 / 0 Amount Retained Coude 0 / 0 Output: Urine 0 / 0 Stool 400 / 400 Pleural Fluid 0 / 0 Hemodialysis Amount 7000 / 7000 Estimated Blood Loss 200 / 200 Urine Amount (Catheter) 4750 / 4750 Indwelling Urethral Catheter 4750 / 4750 Gastric Drainage 0 / 0 Orogastric Tube 0 / 0 Chest Tube Drainage 0 / 0 #1 Right Anterior 0 / 0 Other: Bladder Irrigation Fluid - Amount Instilled Coude 450 Indwelling Urethral Catheter 3,500 Bladder Irrigation Fluid - Amount Drained Coude 3,600 Indwelling Urethral Catheter 3,500 Date of Last Bowel Movement 02/16/18 02/17/18 02/17/18 # Bowel Movements 0 2 # Incontinent Bowel Movements 0 2 - Urinary Catheter Management Coude Cath placed during this visit: no Indwelling Urethral Catheter Cath placed during this visit: no <Melvi Edwards - Last Filed: 02/17/18 18:03> Assessment and Plan - Assessment (1) Acute renal failure (ARF) Code(s): N17.9 - Acute kidney failure, unspecified Status: Acute (2) Sepsis Code(s): A41.9 - Sepsis, unspecified organism Status: Acute (3) Respiratory failure Code(s): J96.90 - Respiratory failure, unspecified, unspecified whether with hypoxia or hypercapnia Status: Acute (4) Hypotension Code(s): I95.9 - Hypotension, unspecified Status: Acute Plan: Acute renal failure Anemia ICD Codes: N17.9 - Acute kidney failure, unspecified Plan: Patient has minimal UOP Initially on CRRT started on 02/04 for acute renal failure Vascath was removed, and re inserted. HD yesterday tolerated well Continue antibiotics. Creatinine remains elevated. Will monitor urinary output, renal panel, and watch for renal recovery. Will continue hemodialysis on Wednesday/Wednesday/Wednesday CBI has been discontinued and urine is clear with good output Hemodialysis tomorrow Labs in am Respiratory failure Management per CC Anemia Respiratory failure Epogen with dialysis . Hgb. remain low, has hematuria, For cystoscopy, to go to OR. Sepsis ICD Codes: A41.9 - Sepsis, unspecified organism Plan: ID following EMILY negative, antibiotics per ID Rhabdomyolysis ICD Codes: M62.82 - Rhabdomyolysis Plan: Monitor CPK UTI (lower urinary tract infection) ICD Codes: N39.0 - Urinary tract infection, site not specified Plan: Patient has MSSA and ID is following Pneumonia ICD Codes: J18.9 - Pneumonia, unspecified organism Plan: Pleural effusion drained Family meeting with palliative care with possible withdrawal to comfort care <Jeanna Franz - Last Filed: 02/17/18 17:13> - Assessment (1) Acute renal failure (ARF) Code(s): N17.9 - Acute kidney failure, unspecified Status: Acute (2) Sepsis Code(s): A41.9 - Sepsis, unspecified organism Status: Acute (3) Respiratory failure Code(s): J96.90 - Respiratory failure, unspecified, unspecified whether with hypoxia or hypercapnia Status: Acute (4) Hypotension Code(s): I95.9 - Hypotension, unspecified Status: Acute - Attending Attestation Patient seen and examined, agree with above. Hematuria is better, post clot evacuation, on CBI. <Melvi Edwards - Last Filed: 02/17/18 18:03>
[2018-02-17] MEDS: fentaNYL 10 mcg/mL Premix Drip 2,500 MCG/250 ML BAG IV.SIG PRN (18:44)
[2018-02-17] MEDS: Sodium Chloride 0.9% Irr Bag 3,000 ML, Aminocaproic Acid Inj 3,000 MG IRRIGATION SCH ×2 (21:19)
[2018-02-18] MEDS: Insulin Detemir Inj 1,000 UNIT/10 ML Vial SQ SCH ×2 (00:23→08:22)
[2018-02-18] MEDS: Insulin NovoLOG Aspart Correctional Sugar Inj SQ SCH ×3 (00:42→12:08)
[2018-02-18] MEDS: Hypromellose 0.3% Opth Gel 10 GM Bottle EACH EYE SCH ×2 (03:32→08:06)
[2018-02-18 04:29] LABS: Baso % (Auto) 0.5 % (0.0-2.0); Eos # (Auto) 0.1 th/mm3 (0.0-0.4); Hematocrit 21.7 % (39.0-51.0); Hemoglobin 7.2 gm/dL (13.0-17.0); Lymph % (Auto) 13.6 % (9.0-44.0); Mean Corpuscular HGB Conc 33.2 % (32.0-36.0); Mean Corpuscular Hemoglobin 29.6 pg (27.0-34.0); Mean Corpuscular Volume 89.3 fL (80.0-100.0); Mean Platelet Volume 9.4 fL (7.0-11.0); Mono # (Auto) 0.3 th/mm3 (0.0-0.9); Mono % (Auto) 4.6 % (0.0-8.0); Neut # (Auto) 5.9 th/mm3 (1.8-7.7); Neut % (Auto) 80.3 % (16.0-70.0); Platelet Count 119 th/mm3 (150-450); Red Blood Count 2.43 mil/mm3 (4.50-5.90); Red Cell Distribution Width 20.8 % (11.6-17.2); White Blood Count 7.3 th/mm3 (4.0-11.0)
[2018-02-18] MEDS: fentaNYL 10 mcg/mL Premix Drip 2,500 MCG/250 ML BAG IV.SIG PRN ×2 (04:30→16:37)
[2018-02-18 04:43] LABS: Activated Partial Thrombo Time 32.3 sec (24.3-30.1); INR 1.1 Ratio; Prothrombin Time 10.9 sec (9.8-11.6)
[2018-02-18 04:52] LABS: Alanine Aminotransferase 21 U/L (12-78); Albumin 1.2 g/dL (3.4-5.0); Alkaline Phosphatase 499 U/L (45-117); Anion Gap 17 meq/L (5-15); Aspartate Aminotransferase 42 U/L (15-37); Blood Urea Nitrogen 74 mg/dL (7-18); Calcium 7.7 mg/dL (8.5-10.1); Carbon Dioxide 19.7 meq/L (21.0-32.0); Chloride 104 meq/L (98-107); Glomerular Filtration Rate 11 mL/min (>89); Glucose,Random 113 mg/dL (74-106); Phosphorus 8.7 mg/dL (2.5-4.9); Potassium 4.6 meq/L (3.5-5.1); Sodium 141 meq/L (136-145)
--- NOTE | 2018-02-18 05:04 | XR ---
EXAM DATE: 02/18/2018 4:17 AM EDT AGE/SEX: 57 years / Male INDICATIONS: Shortness of breath. CLINICAL DATA: This is the patient's subsequent encounter. Patient reports that signs and symptoms h ave been present for 4 - 6 days and indicates a pain score of Nonresponsive. MEDICAL/SURGICAL HISTORY: Hypertension. Non-responsive. [place] [facility] [place]. . FINDINGS: A single AP view of the chest demonstrates diminished lung volumes and bibasilar airspace disease and probable right pleural effusion. Endotracheal tube and right jugular central line stable position. N asogastric tube with tip in stomach. The cardiomediastinal contours are unremarkable. Osseous struc tures are intact. Left humeral prosthesis. CONCLUSION: Bibasilar airspace disease and probable small right pleural effusion Electronically signed by: Joshua Crocker MD 02/18/2018 5:02 AM EDT
[2018-02-18 05:16] LABS: Stomatocytes 1+
[2018-02-18] MEDS: rifAXIMin 550 MG Tablet PO SCH (08:06)
[2018-02-18] MEDS: Bisacodyl 10 MG Supp RECTAL SCH (08:06)
[2018-02-18] MEDS: Chlorhexidine 0.12% Oral Kit 15 ML UDC OROPHARYNG SCH (08:17)
[2018-02-18] MEDS ORDERED: Folic Acid 1 MG Tablet PO SCH (09:00)
--- NOTE | 2018-02-18 09:17 | P.PNCC ---
Subjective Subjective Remarks/Hospital Course: This is a 57-year-old male with a strong history of EtOH abuse, his family states that he drinks greater than a pint today times at least 25 years. He was found unresponsive at home this afternoon. The last time he was seen normal was 5 days ago. He was brought in by EMS and was severely altered. He was intubated for acute hypoxemia and hypercarbia. He was also in a supraventricular tachycardia with a heart rate greater than 200. In the emergency department he was electrically cardioverted 2 without success, and given 5 mill grams of IV Lopressor which caused severe hypotension, but did not resolve his tachycardia. Immediately upon being notified went down to the emergency department evaluated the patient and transported him up to the intensive care unit. Once in the intensive care unit, I placed arterial and central lines, see separate procedure note for details. I loaded the patient with 150 mg of amiodarone and 2 g magnesium. In addition, the patient has a blood gas with severe metabolic acidosis and a pH less than 7.2. I gave 4 A of sodium bicarbonate as well as 1 g of calcium chloride for severe hypocalcemia. After these interventions, the patient spontaneously converted to a sinus tachycardia. The patient was placed on norepinephrine for persistent hypotension and shock. The emergency department attempted to place a 16 Welsh Ennis catheter and was unsuccessful with this. I attempted an additional time to place both an 18 Welsh coud catheter as well as a 24 Welsh three-way catheter, both which were unsuccessful and met significant resistance at approximately 10-12 cm. I consulted urology and discussed the case with Dr. Worley who agrees to Place Ennis catheter tonight for emergent urine output monitoring while in shock. The patient remains altered no additional information is available from patient. ROS is unobtainable. 02/03 Patient is intubated on Levoped 5 mics, Amio and bicarb drips. 16Fr catheter was placed by Urology. 02/04 Patient remains intubated and sedated with Diprivan. Off Levophed on Neosyn 60mics. Right sided pig tail catheter placed yesterday with removal 1100ml cloudy fluid fluid analysis c/w empyema. Renal function declining with Cr: 5.87 and UOP 120ml in 12 hrs. Tmax 102.2 02/05: remains intubated and critically ill. on CVVHD. per RN, net -300/hr on CVVHD. off vasopressors this AM. 02/06: Remains sedated, orally intubated on mechanical ventilation. CRRT clotted off last night. Nephrology planning HD 02/07 Patient remains intubated and sedated with Fentanyl infusion. Off Neosyn remains on Vasopressin and Amio drip. T;102 last night. 02/08 No events overnight. Intubated and on Fentanyl infusion for sedation. Afebrile. Off all pressors. s/p HD yesterday. On Amio drip. 02/09 Patient remains sedated and intubated. For HD today. On Amio drip, T:101.3 last night. 02/10 No events overnight. Sedated with Diprivan and Fentanyl drips. Afebrile. For possible EMILY today. 02/11 Patient remains intubated and sedated. Tmax 100.1. MRCP yesterday no biliary obstruction. On Amio drip. 02/12 Patient remains intubated, now on Precedex drip, Off Diprivan and Fentanyl drip. Tmax:99.7 02/13 No events overnight. Off Diprivan and Fentanyl drips on Precedex drip 0.5. Afebrile. 02/14: Remains on 1.5 mcg/kg/hr of Precedex, No spontaneous eye opening, do not follow commands. Urology reconsulted for persistent retention 02/15: Remains critical. Currently on 7 mcg/kg/h of Precedex. Follows simple commands for the RN not reproducible to me. Urology reconsulted for retentions. Had HD yesterday. No fever in the last 24 hours. Currently on CPAP slightly tachypneic 02/16: Patient remains lethargic encephalopathic critical. Despite upsizing Ennis to 26 Welsh, patient continues to have hematuria and urinary retention. Hemoglobin dropped to 6.[address] Jones, urology planning for OR intervention today. Hemoglobin dropped to 6.2 getting 1 unit PRBC Subjective 02/17: Currently afebrile. Currently on continuous bladder irrigations with hematuria resolving. Hemoglobin appears stable currently. Failed PSV trial today. -7 L with hemodialysis 02/16 02/18 No events overnight. Sedated with Fentanyl drip and intubated. Afebrile. For HD today. Objective Vital Signs / I&O: Vital Signs 02/17/18 09:15 02/17/18 09:30 02/17/18 09:45 Temperature Pulse Rate 67 67 68 Respiratory Rate 26 H 27 H 27 H Blood Pressure 94/51 L 93/51 L 92/52 L Pulse Oximetry 96 97 97 02/17/18 10:00 02/17/18 10:15 02/17/18 10:30 Temperature Pulse Rate 80 69 72 Respiratory Rate 26 H 26 H 19 Blood Pressure 95/52 L 93/51 L 90/51 L Pulse Oximetry 97 97 99 02/17/18 10:45 02/17/18 11:00 02/17/18 11:15 Temperature Pulse Rate 80 82 79 Respiratory Rate 29 H 27 H 28 H Blood Pressure 101/57 L 99/54 L 97/56 L Pulse Oximetry 97 97 97 02/17/18 11:30 02/17/18 11:45 02/17/18 12:00 Temperature 98.6 F Pulse Rate 80 79 74 Respiratory Rate 29 H 28 H 29 H Blood Pressure 93/55 L 93/52 L 93/53 L Pulse Oximetry 97 98 97 02/17/18 12:15 02/17/18 12:30 02/17/18 12:45 Temperature Pulse Rate 75 74 77 Respiratory Rate 27 H 25 H 22 Blood Pressure 91/51 L 94/54 L 98/54 L Pulse Oximetry 97 97 97 02/17/18 13:00 02/17/18 13:02 02/17/18 13:15 Temperature 98.8 F Pulse Rate 77 78 Respiratory Rate 20 18 21 Blood Pressure 98/53 L 98/54 L Pulse Oximetry 97 97 97 02/17/18 13:30 02/17/18 13:45 02/17/18 14:00 Temperature Pulse Rate 77 77 77 Respiratory Rate 21 19 18 Blood Pressure 99/57 L 92/53 L 94/53 L Pulse Oximetry 98 98 97 02/17/18 14:15 02/17/18 14:30 02/17/18 14:45 Temperature Pulse Rate 77 78 77 Respiratory Rate 18 19 18 Blood Pressure 99/56 L 98/55 L 99/56 L Pulse Oximetry 97 96 98 02/17/18 15:00 02/17/18 15:15 02/17/18 15:30 Temperature Pulse Rate 77 76 77 Respiratory Rate 18 18 18 Blood Pressure 99/55 L 96/55 L 96/55 L Pulse Oximetry 97 97 96 02/17/18 15:45 02/17/18 16:00 02/17/18 16:15 Temperature 98.6 F Pulse Rate 76 76 76 Respiratory Rate 18 18 18 Blood Pressure 99/58 L 97/55 L 98/54 L Pulse Oximetry 96 96 96 02/17/18 16:30 02/17/18 16:45 02/17/18 17:00 Temperature Pulse Rate 75 74 74 Respiratory Rate 19 18 18 Blood Pressure 108/61 94/50 L 92/50 L Pulse Oximetry 96 97 97 02/17/18 17:15 02/17/18 17:30 02/17/18 17:45 Temperature Pulse Rate 73 71 71 Respiratory Rate 18 18 18 Blood Pressure 93/52 L 93/53 L 93/52 L Pulse Oximetry 97 97 97 02/17/18 18:00 02/17/18 19:00 02/17/18 20:00 Temperature 98.3 F 98.6 F Pulse Rate 72 72 71 Respiratory Rate 18 18 18 Blood Pressure 91/51 L 91/51 L 91/54 L Pulse Oximetry 97 100 100 02/17/18 20:51 02/17/18 21:00 02/17/18 22:00 Temperature Pulse Rate 73 72 Respiratory Rate 18 18 18 Blood Pressure 96/53 L 100/55 L Pulse Oximetry 98 100 100 02/17/18 23:00 02/18/18 00:00 02/18/18 00:31 Temperature 97.9 F Pulse Rate 72 71 Respiratory Rate 18 18 19 Blood Pressure 101/58 L 104/58 L Pulse Oximetry 100 100 02/18/18 01:00 02/18/18 01:15 02/18/18 01:30 Temperature Pulse Rate 73 72 71 Respiratory Rate 18 18 18 Blood Pressure 100/56 L 106/59 L 107/58 L Pulse Oximetry 100 97 97 02/18/18 01:45 02/18/18 02:00 02/18/18 02:15 Temperature Pulse Rate 71 68 70 Respiratory Rate 18 18 18 Blood Pressure 107/57 L 102/58 L 106/59 L Pulse Oximetry 97 97 97 02/18/18 02:30 02/18/18 02:45 02/18/18 03:00 Temperature Pulse Rate 69 69 68 Respiratory Rate 18 18 18 Blood Pressure 105/59 L 105/58 L 109/59 L Pulse Oximetry 97 97 97 02/18/18 03:15 02/18/18 03:30 02/18/18 03:45 Temperature Pulse Rate 70 71 70 Respiratory Rate 18 18 18 Blood Pressure 111/59 L 106/60 105/61 Pulse Oximetry 97 97 97 02/18/18 04:00 02/18/18 04:15 02/18/18 04:20 Temperature 98.5 F Pulse Rate 74 86 87 Respiratory Rate 31 H 19 18 Blood Pressure 113/66 116/65 Pulse Oximetry 96 95 96 02/18/18 04:30 02/18/18 04:45 02/18/18 05:00 Temperature Pulse Rate 85 81 79 Respiratory Rate 18 18 18 Blood Pressure 107/57 L 108/58 L 107/58 L Pulse Oximetry 96 96 97 02/18/18 05:15 02/18/18 05:30 02/18/18 05:45 Temperature Pulse Rate 77 75 75 Respiratory Rate 18 18 18 Blood Pressure 106/58 L 107/59 L 110/60 Pulse Oximetry 96 96 96 02/18/18 06:00 02/18/18 06:15 02/18/18 06:30 Temperature Pulse Rate 75 75 74 Respiratory Rate 18 18 18 Blood Pressure 111/60 108/58 L 112/60 Pulse Oximetry 96 95 96 02/18/18 06:45 02/18/18 07:00 02/18/18 07:15 Temperature Pulse Rate 73 74 72 Respiratory Rate 18 18 18 Blood Pressure 110/60 110/60 107/57 L Pulse Oximetry 95 95 96 02/18/18 08:34 Temperature Pulse Rate 73 Respiratory Rate 18 Blood Pressure Pulse Oximetry 96 Intake & Output 02/17/18 02/18/18 02/18/18 18:59 06:59 18:59 Intake Total 801 / 801 1119 / 1119 100 / 100 Output Total 200 / 200 100 / 100 Balance 601 / 601 1019 / 1019 100 / 100 Weight 110.5 kg Intake: IV 650 / 650 644 / 644 100 / 100 Teflaro Inj 600 MG In NS Inj 200 / 200 100 / 100 100 ML @ 100 mls/hr IV.SIG Q8H LEROY Rx#:[id number] Prostaphlin Inj 2 GM In NS Inj 200 / 200 300 / 300 100 / 100 100 ML @ 200 mls/hr IV.SIG Q4H LEROY Rx#:[id number] fentaNYL 10 mcg/mL Premix Drip 250 / 250 244 / 244 2,500 mcg In 250 ml @ 50 MCG/HR 5 mls/hr IV.SIG TITRATE PRN Rx #:[id number] Oral 151 / 151 Tube Feeding 355 / 355 Tube Irrigant 120 / 120 Output: Urine Amount (Catheter) 200 / 200 100 / 100 Indwelling Urethral Catheter 200 / 200 100 / 100 Other: Bladder Irrigation Fluid - Amount Instilled Indwelling Urethral Catheter 1,700 Bladder Irrigation Fluid - Amount Drained Indwelling Urethral Catheter 1,900 Date of Last Bowel Movement 02/17/18 02/18/18 # Bowel Movements 1 # Incontinent Bowel Movements 1 Result Diagrams: 02/18/18 10:45 02/18/18 04:01 Other Results: Abnormal Lab Results 02/10/18 02/17/18 02/17/18 14:19 06:00 11:21 WBC RBC Hgb Hct MCV MCH MCHC RDW Plt Count MPV Prelim Diff (Auto) Neut % (Auto) Lymph % (Auto) Isabella % (Auto) Eos % (Auto) Baso % (Auto) Neut # (Auto) Lymph # (Auto) Isabella # (Auto) Eos # (Auto) Baso # (Auto) WBC Differential Manual diff final Diff Scan Seg Neuts % (Manual) 68 Band Neuts % (Manual) 19 H Lymphocytes % (Manual) 3 L Monocytes % (Manual) 8 Myelocytes % (Man) 2 H Abs Neuts (Manual) 5.4 Nucleated RBCs/100 WBC 1 H Differential Comment Toxic Granulation 1+ H Platelet Estimate Low L Platelet Morphology Normal Stomatocytes PT INR APTT Fibrinogen Sodium Potassium Chloride Carbon Dioxide Anion Gap BUN Creatinine Estimated GFR POC Glucose 113 H Random Glucose Lactic Acid Calcium Phosphorus Magnesium Total Bilirubin AST ALT Alkaline Phosphatase Ammonia Total Protein Albumin Hemochromatosis Source Not Reportable Hemochromat Specimen Wb whole blood Hemochromatosis Method . Heredit Hemochromatosis See below Hemochromatosis Results . Hemochromatosis Interp . Hemochromatosis Review See below 02/17/18 02/17/18 02/17/18 15:19 15:48 16:05 WBC RBC Hgb Hct MCV MCH MCHC RDW Plt Count MPV Prelim Diff (Auto) Neut % (Auto) Lymph % (Auto) Isabella % (Auto) Eos % (Auto) Baso % (Auto) Neut # (Auto) Lymph # (Auto) Isabella # (Auto) Eos # (Auto) Baso # (Auto) WBC Differential Diff Scan Seg Neuts % (Manual) Band Neuts % (Manual) Lymphocytes % (Manual) Monocytes % (Manual) Myelocytes % (Man) Abs Neuts (Manual) Nucleated RBCs/100 WBC Differential Comment Toxic Granulation Platelet Estimate Platelet Morphology Stomatocytes PT INR APTT Fibrinogen Sodium Potassium Chloride Carbon Dioxide Anion Gap BUN Creatinine Estimated GFR POC Glucose 56 L 124 H Random Glucose Lactic Acid 2.1 H Calcium Phosphorus Magnesium Total Bilirubin AST ALT Alkaline Phosphatase Ammonia Total Protein Albumin Hemochromatosis Source Hemochromat Specimen Hemochromatosis Method Heredit Hemochromatosis Hemochromatosis Results Hemochromatosis [facility] Hemochromatosis Review 02/17/18 02/17/18 02/18/18 17:07 21:18 00:34 WBC RBC Hgb Hct MCV MCH MCHC RDW Plt Count MPV Prelim Diff (Auto) Neut % (Auto) Lymph % (Auto) Isabella % (Auto) Eos % (Auto) Baso % (Auto) Neut # (Auto) Lymph # (Auto) Isabella # (Auto) Eos # (Auto) Baso # (Auto) WBC Differential Diff Scan Seg Neuts % (Manual) Band Neuts % (Manual) Lymphocytes % (Manual) Monocytes % (Manual) Myelocytes % (Man) Abs Neuts (Manual) Nucleated RBCs/100 WBC Differential Comment Toxic Granulation Platelet Estimate Platelet Morphology Stomatocytes PT INR APTT Fibrinogen Sodium Potassium Chloride Carbon Dioxide Anion Gap BUN Creatinine Estimated GFR POC Glucose 78 100 130 H Random Glucose Lactic Acid Calcium Phosphorus Magnesium Total Bilirubin AST ALT Alkaline Phosphatase Ammonia Total Protein Albumin Hemochromatosis Source Hemochromat Specimen Hemochromatosis Method Heredit Hemochromatosis Hemochromatosis Results Hemochromatosis [facility] Hemochromatosis Review 02/18/18 02/18/18 02/18/18 04:01 04:01 04:01 WBC 7.3 RBC 2.43 L Hgb 7.2 L Hct 21.7 L MCV 89.3 MCH 29.6 MCHC 33.2 RDW 20.8 H Plt Count 119 L MPV 9.4 Prelim Diff (Auto) Slide review pending Neut % (Auto) 80.3 H Lymph % (Auto) 13.6 Isabella % (Auto) 4.6 Eos % (Auto) 1.0 Baso % (Auto) 0.5 Neut # (Auto) 5.9 Lymph # (Auto) 1.0 Isabella # (Auto) 0.3 Eos # (Auto) 0.1 Baso # (Auto) 0.0 WBC Differential . Diff Scan Auto diff confirmed Seg Neuts % (Manual) Band Neuts % (Manual) Lymphocytes % (Manual) Monocytes % (Manual) Myelocytes % (Man) Abs Neuts (Manual) Nucleated RBCs/100 WBC Differential Comment . Toxic Granulation Platelet Estimate Platelet Morphology Stomatocytes 1+ H PT INR APTT Fibrinogen Sodium 141 Potassium 4.6 Chloride 104 Carbon Dioxide 19.7 L Anion Gap 17 H BUN 74 H Creatinine 5.55 H Estimated GFR 11 L POC Glucose Random Glucose 113 H Lactic Acid Calcium 7.7 L Phosphorus 8.7 H D Magnesium 2.0 Total Bilirubin 2.8 H AST 42 H ALT 21 Alkaline Phosphatase 499 H Ammonia Less than 10 L Total Protein 6.0 L Albumin 1.2 L Hemochromatosis Source Hemochromat Specimen Hemochromatosis Method Heredit Hemochromatosis Hemochromatosis Results Hemochromatosis Inter Hemochromatosis Review 02/18/18 02/18/18 04:01 06:09 WBC RBC Hgb Hct MCV MCH MCHC RDW Plt Count MPV Prelim Diff (Auto) Neut % (Auto) Lymph % (Auto) Isabella % (Auto) Eos % (Auto) Baso % (Auto) Neut # (Auto) Lymph # (Auto) Isabella # (Auto) Eos # (Auto) Baso # (Auto) WBC Differential Diff Scan Seg Neuts % (Manual) Band Neuts % (Manual) Lymphocytes % (Manual) Monocytes % (Manual) Myelocytes % (Man) Abs Neuts (Manual) Nucleated RBCs/100 WBC Differential Comment Toxic Granulation Platelet Estimate Platelet Morphology Stomatocytes PT 10.9 INR 1.1 APTT 32.3 H Fibrinogen 657 H Sodium Potassium Chloride Carbon Dioxide Anion Gap BUN Creatinine Estimated GFR POC Glucose 148 H Random Glucose Lactic Acid Calcium Phosphorus Magnesium Total Bilirubin AST ALT Alkaline Phosphatase Ammonia Total Protein Albumin Hemochromatosis Source Hemochromat Specimen Hemochromatosis Method Heredit Hemochromatosis Hemochromatosis Results Hemochromatosis Interp Hemochromatosis Review Imaging: Cholangiopancreatography MRI 02/10/18 00:00 CONCLUSION: No evidence of biliary obstruction Abdomen X-Ray 02/11/18 00:00 CONCLUSION: Nonspecific bowel gas pattern with some mildly dilated loops of colon. No definite mechanical obstruction is demonstrated. Abdomen Ultrasound 02/14/18 00:00 CONCLUSION: 1. Small volume ascites Chest X-Ray 02/18/18 06:00 CONCLUSION: Bibasilar airspace disease and probable small right pleural effusion Objective Remarks: GENERAL: Patient is 57 yo male currently orotracheally intubated SKIN: Warm and dry. Stage 0 DTI HEAD: Normocephalic. EYES: No scleral icterus. No injection or drainage. NECK: Supple, trachea midline. No JVD. CARDIOVASCULAR: Regular rate and rhythm. sinus. RESPIRATORY: Breath sounds equal bilaterally. No accessory muscle use. Air entry diminished at the bases GASTROINTESTINAL: Abdomen soft, slightly distended lower abdomen. Significant scrotal edema. Ennis catheter with hematuria MUSCULOSKELETAL: Trace with 2+ upper lower extremity edema. Neuro: Intubated, do not follow commands for me, eyes spontaneously open. Moves extremities weakly grimaces with suctioning. Withdraws to pain bilateral upper and lower extremities Assessment and Plan - Assessment and Plan Plan: Neuro/Psych Acute metabolic encephalopathy Etoh abuse Currently on fentanyl drip at 250 mcg/h for sedation while intubated Goal RASS -[address] brain : No acute process on 02/02 EEG: Diffuse encephalopathy Continue thiamine daily, multivitamin daily and folic acid 1 mg daily Respiratory: Acute hypoxic and hypercarbic respiratory failure Right sided empyema PRVC 18/650/40 Ventilator bundle Albuterol/ipratropium aerosols every 4 hours with albuterol aerosols every 2 hours. Dyspnea Continue with vent support keep sats >92%, vent day 16. SBT daily as marquez, mental status will not permit extubation Family leaning against trach/PEG. Palliative care following s/p right pigtail catheter placement 02/03, dislodged 02/13 night Pleural fluid analysis c/w empyema Cardiovascular: Mixed hypovolemic and septic shock, resolved Atrial fibrillation with rapid ventricular response Monitor HR and BP keep MAP>65mmHg Status post 5 L crystalloid resuscitation in the emergency department. Now on HD for fluid removal Echo showed EF 60-65%, no RWMA s/p EMILY 02/10 : No vegetations, unremarkable Renal: Acute kidney injury-severe Acute rhabdomyolysis Obstructive uropathy Hematuria BPH Monitor renal function, I/O's, avoid nephrotoxins, s/p HD 02/14 Dr. Lopez intervention 02/16..s/p continuous bladder irrigations. Renal is following- Dr. Dinh. Hemodialysis per nephrology FEN/GI: Elevated LFT's with hyperbilirubinemia Acute protein calorie malnutrition: With hypoalbuminemia KUB abdomen 02/11: Non specific bowel gas pattern, no def mechanical obstruction Tube feeds ( Nepro)with goal rate 50 cc an hour. Dietary consultation Ammonia level <10 on 02/02 Hepatitis profile: Non reactive, GI has followed. MRCP 02/10: No biliary obstruction. Lansoprazole 30 mg daily for GI prophylaxis Bowel regimen is currently been discontinued Currently on Xifaxan 550 twice daily. Heme/ID: Coagulopathy, probably secondary to end-stage liver disease Thrombocytopenia, secondary to shock Anemia requiring transfusion-due to severe hematuria On Teflaro, Oxacillin per ID Monitor for signs of infections ( Fever, WBC) Follow up on cultures on BC from 02/11 NGTD 02/08 BC coag negative staph bacteremia 02/02 Sputum cx: GNR 02/02 Urine cx: Staph Aureus 02/03 BC: GPC 08/12 bottles 02/03 Fluid cx: NGT HIV ab: non reactive Monitor CBC, coags s/p transfusion 1u PRBC on 02/11 s/p transfusion 1u PLT pheresis 02/08 Endocrine: Hyperglycemia of critical illness -- SSI with insulin aspart, TSH 1.6 Prophylaxis: GI Prophylaxis Lansoprazole DVT Prophylaxis -- SCDs - Subcu heparin on hold for thrombocytopenia, anemia requiring transfusion and gross hematuria Palliative care is following Lines: Right IJ vascath placed 02/08. Peripheral IV's Had extensive discussed with patient's son on phone and spoke with patient's brother at bedside updated them on his condition. All questions answered and they voiced understanding of his condition. The son requested to proceed with withdrawal life support and transition to comfort care. Also discussed with Dr. Chavez from palliative care. Level 3 follow-up
--- NOTE | 2018-02-18 10:14 | P.PNPAL ---
Reason for Visit Reason for visit: a. To assist with evaluation and management of symptoms including: pain, anxiety, dyspnea b. To assist medical decision maker(s) with: better understanding of current medical conditions; weighing benefits/burdens of medical treatment options; making medical treatment decisions. Subjective Subjective/Interval History: Patient remains intubated and sedated, hgb is 7.2 and hct is 21.7 this morning. Irrigation has stoped, pt is making urine. Cr. 5.55. He remains dialysis dependant. Family/Friend Interactions: I have spoken to both Ronald(health care proxy), and Chris Forrester (pt's brother and medical care manager while in [place]). They feel patient would not want peg/ trach and are amenable to transition to comfort measure only. In addition they have spoken with attending physician. Exhibits B and C has been signed. Discussed with them about comfort meds for pain, dyspnea, anxiety for compassionate extubation in which they are amenable Objective Vital Signs: Vital Signs 02/17/18 10:00 02/17/18 10:15 02/17/18 10:30 Temperature Pulse Rate 80 69 72 Respiratory Rate 26 H 26 H 19 Blood Pressure 95/52 L 93/51 L 90/51 L Pulse Oximetry 97 97 99 02/17/18 10:45 02/17/18 11:00 02/17/18 11:15 Temperature Pulse Rate 80 82 79 Respiratory Rate 29 H 27 H 28 H Blood Pressure 101/57 L 99/54 L 97/56 L Pulse Oximetry 97 97 97 02/17/18 11:30 02/17/18 11:45 02/17/18 12:00 Temperature 98.6 F Pulse Rate 80 79 74 Respiratory Rate 29 H 28 H 29 H Blood Pressure 93/55 L 93/52 L 93/53 L Pulse Oximetry 97 98 97 02/17/18 12:15 02/17/18 12:30 02/17/18 12:45 Temperature Pulse Rate 75 74 77 Respiratory Rate 27 H 25 H 22 Blood Pressure 91/51 L 94/54 L 98/54 L Pulse Oximetry 97 97 97 02/17/18 13:00 02/17/18 13:02 02/17/18 13:15 Temperature 98.8 F Pulse Rate 77 78 Respiratory Rate 20 18 21 Blood Pressure 98/53 L 98/54 L Pulse Oximetry 97 97 97 02/17/18 13:30 02/17/18 13:45 02/17/18 14:00 Temperature Pulse Rate 77 77 77 Respiratory Rate 21 19 18 Blood Pressure 99/57 L 92/53 L 94/53 L Pulse Oximetry 98 98 97 02/17/18 14:15 02/17/18 14:30 02/17/18 14:45 Temperature Pulse Rate 77 78 77 Respiratory Rate 18 19 18 Blood Pressure 99/56 L 98/55 L 99/56 L Pulse Oximetry 97 96 98 02/17/18 15:00 02/17/18 15:15 02/17/18 15:30 Temperature Pulse Rate 77 76 77 Respiratory Rate 18 18 18 Blood Pressure 99/55 L 96/55 L 96/55 L Pulse Oximetry 97 97 96 02/17/18 15:45 02/17/18 16:00 02/17/18 16:15 Temperature 98.6 F Pulse Rate 76 76 76 Respiratory Rate 18 18 18 Blood Pressure 99/58 L 97/55 L 98/54 L Pulse Oximetry 96 96 96 02/17/18 16:30 02/17/18 16:45 02/17/18 17:00 Temperature Pulse Rate 75 74 74 Respiratory Rate 19 18 18 Blood Pressure 108/61 94/50 L 92/50 L Pulse Oximetry 96 97 97 02/17/18 17:15 02/17/18 17:30 02/17/18 17:45 Temperature Pulse Rate 73 71 71 Respiratory Rate 18 18 18 Blood Pressure 93/52 L 93/53 L 93/52 L Pulse Oximetry 97 97 97 02/17/18 18:00 02/17/18 19:00 02/17/18 20:00 Temperature 98.3 F 98.6 F Pulse Rate 72 72 71 Respiratory Rate 18 18 18 Blood Pressure 91/51 L 91/51 L 91/54 L Pulse Oximetry 97 100 100 02/17/18 20:51 02/17/18 21:00 02/17/18 22:00 Temperature Pulse Rate 73 72 Respiratory Rate 18 18 18 Blood Pressure 96/53 L 100/55 L Pulse Oximetry 98 100 100 02/17/18 23:00 02/18/18 00:00 02/18/18 00:31 Temperature 97.9 F Pulse Rate 72 71 Respiratory Rate 18 18 19 Blood Pressure 101/58 L 104/58 L Pulse Oximetry 100 100 02/18/18 01:00 02/18/18 01:15 02/18/18 01:30 Temperature Pulse Rate 73 72 71 Respiratory Rate 18 18 18 Blood Pressure 100/56 L 106/59 L 107/58 L Pulse Oximetry 100 97 97 02/18/18 01:45 02/18/18 02:00 02/18/18 02:15 Temperature Pulse Rate 71 68 70 Respiratory Rate 18 18 18 Blood Pressure 107/57 L 102/58 L 106/59 L Pulse Oximetry 97 97 97 02/18/18 02:30 02/18/18 02:45 02/18/18 03:00 Temperature Pulse Rate 69 69 68 Respiratory Rate 18 18 18 Blood Pressure 105/59 L 105/58 L 109/59 L Pulse Oximetry 97 97 97 02/18/18 03:15 02/18/18 03:30 02/18/18 03:45 Temperature Pulse Rate 70 71 70 Respiratory Rate 18 18 18 Blood Pressure 111/59 L 106/60 105/61 Pulse Oximetry 97 97 97 02/18/18 04:00 02/18/18 04:15 02/18/18 04:20 Temperature 98.5 F Pulse Rate 74 86 87 Respiratory Rate 31 H 19 18 Blood Pressure 113/66 116/65 Pulse Oximetry 96 95 96 02/18/18 04:30 02/18/18 04:45 02/18/18 05:00 Temperature Pulse Rate 85 81 79 Respiratory Rate 18 18 18 Blood Pressure 107/57 L 108/58 L 107/58 L Pulse Oximetry 96 96 97 02/18/18 05:15 02/18/18 05:30 02/18/18 05:45 Temperature Pulse Rate 77 75 75 Respiratory Rate 18 18 18 Blood Pressure 106/58 L 107/59 L 110/60 Pulse Oximetry 96 96 96 02/18/18 06:00 02/18/18 06:15 02/18/18 06:30 Temperature Pulse Rate 75 75 74 Respiratory Rate 18 18 18 Blood Pressure 111/60 108/58 L 112/60 Pulse Oximetry 96 95 96 02/18/18 06:45 02/18/18 07:00 02/18/18 07:15 Temperature Pulse Rate 73 74 72 Respiratory Rate 18 18 18 Blood Pressure 110/60 110/60 107/57 L Pulse Oximetry 95 95 96 02/18/18 07:30 02/18/18 08:00 02/18/18 08:30 Temperature 97.4 F L Pulse Rate 74 73 73 Respiratory Rate 18 18 18 Blood Pressure 110/60 106/57 L 106/58 L Pulse Oximetry 96 96 96 02/18/18 08:34 02/18/18 09:00 Temperature Pulse Rate 73 74 Respiratory Rate 18 18 Blood Pressure 106/58 L Pulse Oximetry 96 95 Intake & Output 02/17/18 02/18/18 02/18/18 18:59 06:59 18:59 Intake Total 801 / 801 1119 / 1119 200 / 200 Output Total 200 / 200 100 / 100 Balance 601 / 601 1019 / 1019 200 / 200 Weight 110.5 kg Intake: IV 650 / 650 644 / 644 200 / 200 Teflaro Inj 600 MG In NS Inj 200 / 200 100 / 100 100 / 100 100 ML @ 100 mls/hr IV.SIG Q8H LEROY Rx#:[id number] Prostaphlin Inj 2 GM In NS Inj 200 / 200 300 / 300 100 / 100 100 ML @ 200 mls/hr IV.SIG Q4H LEROY Rx#:[id number] fentaNYL 10 mcg/mL Premix Drip 250 / 250 244 / 244 2,500 mcg In 250 ml @ 50 MCG/HR 5 mls/hr IV.SIG TITRATE PRN Rx #:[id number] Oral 151 / 151 Tube Feeding 355 / 355 Tube Irrigant 120 / 120 Output: Urine Amount (Catheter) 200 / 200 100 / 100 Indwelling Urethral Catheter 200 / 200 100 / 100 Other: Bladder Irrigation Fluid - Amount Instilled Indwelling Urethral Catheter 1,700 Bladder Irrigation Fluid - Amount Drained Indwelling Urethral Catheter 1,900 Date of Last Bowel Movement 02/17/18 02/18/18 02/18/18 # Bowel Movements 1 # Incontinent Bowel Movements 1 Physical Exam: CONSTITUTIONAL/GENERAL: This is a critically ill 57 year old male, intubated, sedated TUBES/LINES/DRAINS: pigtail cathether, quezada, ET tube irrigation, central line. SKIN:jaundice HEAD: Atraumatic. Normocephalic. EYES: Pupils equal and round and reactive. Icteric scelera ENT: Hearing grossly normal. Nose without bleeding or purulent drainage. Throat ET tube present NECK: Trachea midline. Supple, nontender. No palpable thyroid enlargement or nodularity. CARDIOVASCULAR: Regular rate and rhythm without murmurs, gallops, or rubs. No JVD. RESPIRATORY/CHEST:Rhonchi bilaterally. GASTROINTESTINAL: Abdomen distended. soft. BS present. GENITOURINARY: Without palpable bladder distension. Quezada catheter in place. MUSCULOSKELETAL: Extremities without clubbing, cyanosis. 2+ edema LYMPHATICS: No palpable cervical or supraclavicular adenopathy. NEUROLOGICAL: Intubated PSYCHIATRIC: unable to elicit Diagnostic Tests Laboratory: Laboratory Results - last 72 hr 02/10/18 02/10/18 02/14/18 14:19 14:19 13:00 WBC RBC Hgb Hct MCV MCH MCHC RDW Plt Count MPV Prelim Diff (Auto) Neut % (Auto) Lymph % (Auto) Posey % (Auto) Eos % (Auto) Baso % (Auto) Neut # (Auto) Lymph # (Auto) Posey # (Auto) Eos # (Auto) Baso # (Auto) WBC Differential Diff Scan Seg Neuts % (Manual) Band Neuts % (Manual) Lymphocytes % (Manual) Monocytes % (Manual) Myelocytes % (Man) Abs Neuts (Manual) Nucleated RBCs/100 WBC Differential Comment Toxic Granulation Platelet Estimate Platelet Morphology Stomatocytes PT INR APTT Fibrinogen Sodium Potassium Chloride Carbon Dioxide Anion Gap BUN Creatinine Estimated GFR POC Glucose Random Glucose Lactic Acid Calcium Phosphorus Magnesium Total Bilirubin AST ALT Alkaline Phosphatase Ammonia Total Protein Albumin Mitochondria M2 IgG Ab Less than 20.0 Hemochromatosis Source Not Reportable Hemochromat Specimen Wb whole blood Hemochromatosis Method . Heredit Hemochromatosis See below Hemochromatosis Results . Hemochromatosis Interp . Hemochromatosis Review See below MTS Gel Crossmatch See Detail Bld Prod Order Comment 02/15/18 02/15/18 02/15/18 10:20 11:18 17:59 WBC RBC Hgb Hct MCV MCH MCHC RDW Plt Count MPV Prelim Diff (Auto) Neut % (Auto) Lymph % (Auto) Posey % (Auto) Eos % (Auto) Baso % (Auto) Neut # (Auto) Lymph # (Auto) Posey # (Auto) Eos # (Auto) Baso # (Auto) WBC Differential Diff Scan Seg Neuts % (Manual) Band Neuts % (Manual) Lymphocytes % (Manual) Monocytes % (Manual) Myelocytes % (Man) Abs Neuts (Manual) Nucleated RBCs/100 WBC Differential Comment Toxic Granulation Platelet Estimate Platelet Morphology Stomatocytes PT INR APTT Fibrinogen Sodium 144 Potassium 4.6 D Chloride 106 Carbon Dioxide 20.0 L Anion Gap 18 H BUN 71 H Creatinine 5.15 H Estimated GFR 12 L POC Glucose 165 H 149 H Random Glucose 159 H D Lactic Acid Calcium 7.9 L D Phosphorus Magnesium Total Bilirubin 3.6 H AST 52 H ALT 23 Alkaline Phosphatase 464 H Ammonia Total Protein 5.6 L Albumin 1.5 L Mitochondria M2 IgG Ab Hemochromatosis Source Hemochromat Specimen Hemochromatosis Method Heredit Hemochromatosis Hemochromatosis Results Hemochromatosis Interp Hemochromatosis Review [facility] Gel Crossmatch Bld Prod Order Comment 02/15/18 02/16/18 02/16/18 21:53 00:32 04:20 WBC 5.0 RBC 2.05 L Hgb 6.2 L* Hct 18.9 L* MCV 92.2 MCH 30.4 MCHC 32.9 RDW 18.7 H Plt Count 166 MPV 9.8 Prelim Diff (Auto) Slide review pending Neut % (Auto) 82.0 H Lymph % (Auto) 8.6 L Posey % (Auto) 8.1 H Eos % (Auto) 0.3 Baso % (Auto) 1.0 Neut # (Auto) 4.1 Lymph # (Auto) 0.4 L Posey # (Auto) 0.4 Eos # (Auto) 0.0 Baso # (Auto) 0.0 WBC Differential . Diff Scan Auto diff confirmed Seg Neuts % (Manual) Band Neuts % (Manual) Lymphocytes % (Manual) Monocytes % (Manual) Myelocytes % (Man) Abs Neuts (Manual) Nucleated RBCs/100 WBC Differential Comment . Toxic Granulation Platelet Estimate Platelet Morphology Stomatocytes 1+ H PT INR APTT Fibrinogen Sodium Potassium Chloride Carbon Dioxide Anion Gap BUN Creatinine Estimated GFR POC Glucose 199 H 213 H Random Glucose Lactic Acid Calcium Phosphorus Magnesium Total Bilirubin AST ALT Alkaline Phosphatase Ammonia Total Protein Albumin Mitochondria M2 IgG Ab Hemochromatosis Source Hemochromat Specimen Hemochromatosis Method Heredit Hemochromatosis Hemochromatosis Results Hemochromatosis Interp Hemochromatosis Review [facility] Gel Crossmatch Bld Prod Order Comment 02/16/18 02/16/18 02/16/18 04:20 04:20 04:30 WBC RBC Hgb Hct MCV MCH MCHC RDW Plt Count MPV Prelim Diff (Auto) Neut % (Auto) Lymph % (Auto) Posey % (Auto) Eos % (Auto) Baso % (Auto) Neut # (Auto) Lymph # (Auto) Posey # (Auto) Eos # (Auto) Baso # (Auto) WBC Differential Diff Scan Seg Neuts % (Manual) Band Neuts % (Manual) Lymphocytes % (Manual) Monocytes % (Manual) Myelocytes % (Man) Abs Neuts (Manual) Nucleated RBCs/100 WBC Differential Comment Toxic Granulation Platelet Estimate Platelet Morphology Stomatocytes PT 11.4 INR 1.1 APTT 28.7 Fibrinogen Sodium 145 Potassium 4.3 Chloride 107 Carbon Dioxide 18.5 L Anion Gap 20 H BUN 85 H Creatinine 5.91 H Estimated GFR 10 L POC Glucose Random Glucose 196 H Lactic Acid 1.8 Calcium 7.9 L Phosphorus 8.0 H Magnesium 2.4 Total Bilirubin AST ALT Alkaline Phosphatase Ammonia Total Protein Albumin Mitochondria M2 IgG Ab Hemochromatosis Source Hemochromat Specimen Hemochromatosis Method Heredit Hemochromatosis Hemochromatosis Results Hemochromatosis Interp Hemochromatosis Review MTS Gel Crossmatch Bld Prod Order Comment 02/16/18 02/16/18 02/16/18 05:02 05:25 12:37 WBC RBC Hgb Hct MCV MCH MCHC RDW Plt Count MPV Prelim Diff (Auto) Neut % (Auto) Lymph % (Auto) Posey % (Auto) Eos % (Auto) Baso % (Auto) Neut # (Auto) Lymph # (Auto) Posey # (Auto) Eos # (Auto) Baso # (Auto) WBC Differential Diff Scan Seg Neuts % (Manual) Band Neuts % (Manual) Lymphocytes % (Manual) Monocytes % (Manual) Myelocytes % (Man) Abs Neuts (Manual) Nucleated RBCs/100 WBC Differential Comment Toxic Granulation Platelet Estimate Platelet Morphology Stomatocytes PT INR APTT Fibrinogen Sodium Potassium Chloride Carbon Dioxide Anion Gap BUN Creatinine Estimated GFR POC Glucose 201 H 155 H Random Glucose Lactic Acid Calcium Phosphorus Magnesium Total Bilirubin AST ALT Alkaline Phosphatase Ammonia Total Protein Albumin Mitochondria M2 IgG Ab Hemochromatosis Source Hemochromat Specimen Hemochromatosis Method Heredit Hemochromatosis Hemochromatosis Results Hemochromatosis Interp Hemochromatosis Review MTS Gel Crossmatch See Detail Bld Prod Order Comment 02/16/18 02/16/18 02/16/18 15:11 15:23 18:08 WBC 3.3 L RBC 2.36 L Hgb 7.0 L Hct 21.4 L MCV 90.6 MCH 29.8 MCHC 32.9 RDW 21.8 H D Plt Count 133 L MPV 9.4 Prelim Diff (Auto) Neut % (Auto) Lymph % (Auto) Posey % (Auto) Eos % (Auto) Baso % (Auto) Neut # (Auto) Lymph # (Auto) Posey # (Auto) Eos # (Auto) Baso # (Auto) WBC Differential Diff Scan Seg Neuts % (Manual) Band Neuts % (Manual) Lymphocytes % (Manual) Monocytes % (Manual) Myelocytes % (Man) Abs Neuts (Manual) Nucleated RBCs/100 WBC Differential Comment Toxic Granulation Platelet Estimate Platelet Morphology Stomatocytes PT INR APTT Fibrinogen Sodium Potassium Chloride Carbon Dioxide Anion Gap BUN Creatinine Estimated GFR POC Glucose 154 H Random Glucose Lactic Acid Calcium Phosphorus Magnesium Total Bilirubin AST ALT Alkaline Phosphatase Ammonia Total Protein Albumin Mitochondria M2 IgG Ab Hemochromatosis Source Hemochromat Specimen Hemochromatosis Method Heredit Hemochromatosis Hemochromatosis Results Hemochromatosis Interp Hemochromatosis Review MTS Gel Crossmatch See Detail Bld Prod Order Comment 02/16/18 02/16/18 02/16/18 18:49 21:05 23:58 WBC RBC Hgb Hct MCV MCH MCHC RDW Plt Count MPV Prelim Diff (Auto) Neut % (Auto) Lymph % (Auto) Posey % (Auto) Eos % (Auto) Baso % (Auto) Neut # (Auto) Lymph # (Auto) Posey # (Auto) Eos # (Auto) Baso # (Auto) WBC Differential Diff Scan Seg Neuts % (Manual) Band Neuts % (Manual) Lymphocytes % (Manual) Monocytes % (Manual) Myelocytes % (Man) Abs Neuts (Manual) Nucleated RBCs/100 WBC Differential Comment Toxic Granulation Platelet Estimate Platelet Morphology Stomatocytes PT INR APTT Fibrinogen Sodium Potassium Chloride Carbon Dioxide Anion Gap BUN Creatinine Estimated GFR POC Glucose 165 H 164 H Random Glucose Lactic Acid Calcium Phosphorus Magnesium Total Bilirubin AST ALT Alkaline Phosphatase Ammonia Total Protein Albumin Mitochondria M2 IgG Ab Hemochromatosis Source Hemochromat Specimen Hemochromatosis Method Heredit Hemochromatosis Hemochromatosis Results Hemochromatosis Interp Hemochromatosis Review MTS Gel Crossmatch See Detail Bld Prod Order Comment Cancelled 02/17/18 02/17/18 02/17/18 05:44 06:00 06:00 WBC 6.1 D RBC 2.64 L Hgb 7.7 L Hct 23.1 L MCV 87.6 MCH 29.3 MCHC 33.4 RDW 20.2 H Plt Count 128 L MPV 9.6 Prelim Diff (Auto) Slide review pending Neut % (Auto) 84.7 H Lymph % (Auto) 9.9 Posey % (Auto) 4.6 Eos % (Auto) 0.2 Baso % (Auto) 0.6 Neut # (Auto) 5.2 Lymph # (Auto) 0.6 L Posey # (Auto) 0.3 Eos # (Auto) 0.0 Baso # (Auto) 0.0 WBC Differential Manual diff final Diff Scan Seg Neuts % (Manual) 68 Band Neuts % (Manual) 19 H Lymphocytes % (Manual) 3 L Monocytes % (Manual) 8 Myelocytes % (Man) 2 H Abs Neuts (Manual) 5.4 Nucleated RBCs/100 WBC 1 H Differential Comment . Toxic Granulation 1+ H Platelet Estimate Low L Platelet Morphology Normal Stomatocytes PT INR APTT Fibrinogen Sodium 140 Potassium 4.6 Chloride 104 Carbon Dioxide 18.2 L Anion Gap 18 H BUN 69 H Creatinine 5.09 H Estimated GFR 12 L POC Glucose 142 H Random Glucose 129 H Lactic Acid Calcium 7.9 L Phosphorus 7.3 H Magnesium 2.0 Total Bilirubin 3.4 H AST 51 H ALT 23 Alkaline Phosphatase 446 H Ammonia Total Protein 5.9 L Albumin 1.2 L Mitochondria M2 IgG Ab Hemochromatosis Source Hemochromat Specimen Hemochromatosis Method Heredit Hemochromatosis Hemochromatosis Results Hemochromatosis Interp Hemochromatosis Review MTS Gel Crossmatch Bld Prod Order Comment 02/17/18 02/17/18 02/17/18 11:21 15:19 15:48 WBC RBC Hgb Hct MCV MCH MCHC RDW Plt Count MPV Prelim Diff (Auto) Neut % (Auto) Lymph % (Auto) Posey % (Auto) Eos % (Auto) Baso % (Auto) Neut # (Auto) Lymph # (Auto) Posey # (Auto) Eos # (Auto) Baso # (Auto) WBC Differential Diff Scan Seg Neuts % (Manual) Band Neuts % (Manual) Lymphocytes % (Manual) Monocytes % (Manual) Myelocytes % (Man) Abs Neuts (Manual) Nucleated RBCs/100 WBC Differential Comment Toxic Granulation Platelet Estimate Platelet Morphology Stomatocytes PT INR APTT Fibrinogen Sodium Potassium Chloride Carbon Dioxide Anion Gap BUN Creatinine Estimated GFR POC Glucose 113 H 56 L 124 H Random Glucose Lactic Acid Calcium Phosphorus Magnesium Total Bilirubin AST ALT Alkaline Phosphatase Ammonia Total Protein Albumin Mitochondria M2 IgG Ab Hemochromatosis Source Hemochromat Specimen Hemochromatosis Method Heredit Hemochromatosis Hemochromatosis Results Hemochromatosis Interp Hemochromatosis Review [facility] Gel Crossmatch Bld Prod Order Comment 02/17/18 02/17/18 02/17/18 16:05 17:07 21:18 WBC RBC Hgb Hct MCV MCH MCHC RDW Plt Count MPV Prelim Diff (Auto) Neut % (Auto) Lymph % (Auto) Posey % (Auto) Eos % (Auto) Baso % (Auto) Neut # (Auto) Lymph # (Auto) Posey # (Auto) Eos # (Auto) Baso # (Auto) WBC Differential Diff Scan Seg Neuts % (Manual) Band Neuts % (Manual) Lymphocytes % (Manual) Monocytes % (Manual) Myelocytes % (Man) Abs Neuts (Manual) Nucleated RBCs/100 WBC Differential Comment Toxic Granulation Platelet Estimate Platelet Morphology Stomatocytes PT INR APTT Fibrinogen Sodium Potassium Chloride Carbon Dioxide Anion Gap BUN Creatinine Estimated GFR POC Glucose 78 100 Random Glucose Lactic Acid 2.1 H Calcium Phosphorus Magnesium Total Bilirubin AST ALT Alkaline Phosphatase Ammonia Total Protein Albumin Mitochondria M2 IgG Ab Hemochromatosis Source Hemochromat Specimen Hemochromatosis Method Heredit Hemochromatosis Hemochromatosis Results Hemochromatosis Interp Hemochromatosis Review [facility] Gel Crossmatch Bld Prod Order Comment 02/18/18 02/18/18 02/18/18 00:34 04:01 04:01 WBC 7.3 RBC 2.43 L Hgb 7.2 L Hct 21.7 L MCV 89.3 MCH 29.6 MCHC 33.2 RDW 20.8 H Plt Count 119 L MPV 9.4 Prelim Diff (Auto) Slide review pending Neut % (Auto) 80.3 H Lymph % (Auto) 13.6 Posey % (Auto) 4.6 Eos % (Auto) 1.0 Baso % (Auto) 0.5 Neut # (Auto) 5.9 Lymph # (Auto) 1.0 Posey # (Auto) 0.3 Eos # (Auto) 0.1 Baso # (Auto) 0.0 WBC Differential . Diff Scan Auto diff confirmed Seg Neuts % (Manual) Band Neuts % (Manual) Lymphocytes % (Manual) Monocytes % (Manual) Myelocytes % (Man) Abs Neuts (Manual) Nucleated RBCs/100 WBC Differential Comment . Toxic Granulation Platelet Estimate Platelet Morphology Stomatocytes 1+ H PT INR APTT Fibrinogen Sodium 141 Potassium 4.6 Chloride 104 Carbon Dioxide 19.7 L Anion Gap 17 H BUN 74 H Creatinine 5.55 H Estimated GFR 11 L POC Glucose 130 H Random Glucose 113 H Lactic Acid Calcium 7.7 L Phosphorus 8.7 H D Magnesium 2.0 Total Bilirubin 2.8 H AST 42 H ALT 21 Alkaline Phosphatase 499 H Ammonia Total Protein 6.0 L Albumin 1.2 L Mitochondria M2 IgG Ab Hemochromatosis Source Hemochromat Specimen Hemochromatosis Method Heredit Hemochromatosis Hemochromatosis Results Hemochromatosis Interp Hemochromatosis Review MTS Gel Crossmatch Bld Prod Order Comment 02/18/18 02/18/18 02/18/18 04:01 04:01 06:09 WBC RBC Hgb Hct MCV MCH MCHC RDW Plt Count MPV Prelim Diff (Auto) Neut % (Auto) Lymph % (Auto) Posey % (Auto) Eos % (Auto) Baso % (Auto) Neut # (Auto) Lymph # (Auto) Posey # (Auto) Eos # (Auto) Baso # (Auto) WBC Differential Diff Scan Seg Neuts % (Manual) Band Neuts % (Manual) Lymphocytes % (Manual) Monocytes % (Manual) Myelocytes % (Man) Abs Neuts (Manual) Nucleated RBCs/100 WBC Differential Comment Toxic Granulation Platelet Estimate Platelet Morphology Stomatocytes PT 10.9 INR 1.1 APTT 32.3 H Fibrinogen 657 H Sodium Potassium Chloride Carbon Dioxide Anion Gap BUN Creatinine Estimated GFR POC Glucose 148 H Random Glucose Lactic Acid Calcium Phosphorus Magnesium Total Bilirubin AST ALT Alkaline Phosphatase Ammonia Less than 10 L Total Protein Albumin Mitochondria M2 IgG Ab Hemochromatosis Source Hemochromat Specimen Hemochromatosis Method Heredit Hemochromatosis Hemochromatosis Results Hemochromatosis Interp Hemochromatosis Review MTS Gel Crossmatch Bld Prod Order Comment Result Diagrams: 02/18/18 10:45 02/18/18 04:01 Microbiology: Microbiology 02/14/18 10:10 Aerobic Blood Culture - Preliminary Blood - Peripheral No growth in 3 days Anaerobic Blood Culture - Preliminary No growth in 3 days 02/14/18 10:20 Aerobic Blood Culture - Preliminary Blood - Peripheral No growth in 3 days Anaerobic Blood Culture - Preliminary No growth in 3 days 02/15/18 02:25 Urine Culture - Final Catheterized Urine No growth in 48 hours 02/14/18 11:44 Gram Stain - Final Sputum - Endotracheal Sputum Culture - Final Heavy growth normal respiratory km 02/11/18 04:50 Aerobic Blood Culture - Final Blood - Peripheral No growth in 5 days Anaerobic Blood Culture - Final No growth in 5 days 02/11/18 04:57 Aerobic Blood Culture - Final Blood - Peripheral No growth in 5 days Anaerobic Blood Culture - Final No growth in 5 days Imaging: ITS Impressions Cholangiopancreatography MRI 02/10/18 00:00 CONCLUSION: No evidence of biliary obstruction Abdomen X-Ray 02/11/18 00:00 CONCLUSION: Nonspecific bowel gas pattern with some mildly dilated loops of colon. No definite mechanical obstruction is demonstrated. Abdomen Ultrasound 02/14/18 00:00 CONCLUSION: 1. Small volume ascites Chest X-Ray 02/18/18 06:00 CONCLUSION: Bibasilar airspace disease and probable small right pleural effusion Assessment and Plan - Disease Oriented Problem List (1) Acute renal failure (ARF) (2) Sepsis (3) Respiratory failure (4) Hypotension (5) Cholelithiasis - Symptom Scale (1) Pain 0-10 Scale: Unable to quantify (2) Anxiety 0-10 Scale: Unable to quantify (3) Dyspnea 0-10 Scale: Unable to quantify Pertinent Non-Medical Issues: Psychosocial: Veteram. disablilty (back pain) and x 3. Have one son Ronald Forrester from 2nd marriage. [facility] Legal:no known advacnce directive per bother. Ethical issues impacting care: Important Contacts: (Son/ health care proxy) [phone] (brother)Chris Forrester [phone] Prognosis: 57 year old hx of etoh abuse, came in with severe sepsis, tachycardia, respiratory failure. Pt mechanically ventilated, on dialysis, encephalopathic , Prognosis is guarded. Overall prognosis for functional recover is poor. Code Status: No Code DNR (no cpr/acls/shock) Plan: == capacity- does not have capacity to make medical decision. Critically ill, encephalopathic, multi-organ failure. I do not anticipate return to have capacity unless pt becomes non critical. == health care decision maker: x 3, and x 3. Son from 2nd marriage Ronald Forrester is medical decision maker == code- DNR. No reintubation if medically extubated. Goals of care- I have spoken to both Ronald(health care proxy), and Chris Forrester (pt's brother and medical care manager while in [place]). They feel patient would not want peg/trach and are amenable to transition to comfort measure only. In addition they have spoken with attending physician. Exhibits B and C has been signed. == symptoms: compasionnate extubation and withdraw of life support, ativan, morphine and other comfort meds will be available for dyspnea, pain, anxiety. == Palliative care will follow to make recommendation for symptom managment, and review goals of care as clinical conditions evolves. d/w with critical care Dr. Bell. Attestation Attestation: To help prompt me to consider important information that might be impacting today's encounter and assessment, information from prior notes written by myself or my colleagues may have been "brought forward" into today's note. My signature on this note, however, is an attestation that I personally performed the exam, history, and/or decision-making noted today, and, unless otherwise indicated, the interactions with patient, family, and staff as well as the review of records all occurred today. I also attest that the listed assessment and stated plan reflect my best clinical judgment today based on the combination of historical information, prior notes, and today's exam/ interactions. When time spent is documented, it refers only to time spent today by the signer, or if indicated, combined time spent today by collaborating physician/nurse practitioner.
[2018-02-18 11:02] LABS: Hemoglobin 7.1 gm/dL (13.0-17.0)
--- NOTE | 2018-02-18 11:15 | P.PNID ---
Subjective Remarks: ID COVERAGE Most of the history of optimal review of medical records. is a 57-year-old male with very strong current history of alcohol abuse. His brother and [id number] were in the room report that he drinks greater than a pint for at least 25 years. Patient is a resident of [place] and reportedly moved here to be close to his brother. [facility]. Patient's brother reports that they often go to patient's house for safety checks. The last time he was reportedly normal was 5 days prior to him coming to the hospital. When patient' s brother went to visit him on the day of admission patient was markedly obtunded and difficult to arouse and had some matting of his eyelids and brother called EMS reportedly. When patient was seen by EMS she was found to be significantly encephalopathic and there was a concern for airway protection and therefore he was intubated for acute hypoxemia and hypercarbia. Reportedly was also an SVT with a heart rate greater than 200. In the emergency department he was cardioverted and was hypotensive requiring pressors. Patient was admitted to the ICU under critical care team. Patient is currently on vasopressors Larry-Synephrine at 100 mics, he is also on a propofol drip for sedation. He is currently on a ventilator with AC 50% FiO2, PEEP of 5 not much respiratory secretions noted. He also has a right-sided chest tube which was placed when a large effusion was noted on the CT scan. Per description by RN there was a lot of yellow looking purulent material noted when the chest tube was placed. Urology has been consulted because Ennis was difficult to be placed. Patient does not have much in terms of her urine output and is currently at 50 cc. GI is following patient as well. Sepsis workup was initiated on admission infectious diseases consulted for evaluation and management of septic shock secondary to possibly right-sided empyema. Overnight events reviewed with RN. No fevers Secretions syed small to moderate. Sputum Cultures sent. On Fentanyl: opens eyes, ? tracks. Did not follow commands for me. Off pressors. No generalized rash No diarrhea. No BM. All lines changed recently. A line DCed. Antibiotics: Cefepime IV Oxacillin IV Teflaro IV MicafungiN IV Lines: Line sites ok Past Medical History: Diabetes Hypertension Significant EtOH history some shoulder surgery Allergies/Adverse Reactions: Allergies lisinopril Allergy (Severe, Verified 02/05/18 06:22) airway edema Sulfa (Sulfonamide Antibiotics) Allergy (Severe, Verified 02/05/18 06:22) Edema, Localized AIRWAY EDEMA Objective Vital Signs 02/17/18 11:15 02/17/18 11:30 02/17/18 11:45 Temperature Pulse Rate 79 80 79 Respiratory Rate 28 H 29 H 28 H Blood Pressure 97/56 L 93/55 L 93/52 L Pulse Oximetry 97 97 98 02/17/18 12:00 02/17/18 12:15 02/17/18 12:30 Temperature 98.6 F Pulse Rate 74 75 74 Respiratory Rate 29 H 27 H 25 H Blood Pressure 93/53 L 91/51 L 94/54 L Pulse Oximetry 97 97 97 02/17/18 12:45 02/17/18 13:00 02/17/18 13:02 Temperature 98.8 F Pulse Rate 77 77 Respiratory Rate 22 20 18 Blood Pressure 98/54 L 98/53 L Pulse Oximetry 97 97 97 02/17/18 13:15 02/17/18 13:30 02/17/18 13:45 Temperature Pulse Rate 78 77 77 Respiratory Rate 21 21 19 Blood Pressure 98/54 L 99/57 L 92/53 L Pulse Oximetry 97 98 98 02/17/18 14:00 02/17/18 14:15 02/17/18 14:30 Temperature Pulse Rate 77 77 78 Respiratory Rate 18 18 19 Blood Pressure 94/53 L 99/56 L 98/55 L Pulse Oximetry 97 97 96 02/17/18 14:45 02/17/18 15:00 02/17/18 15:15 Temperature Pulse Rate 77 77 76 Respiratory Rate 18 18 18 Blood Pressure 99/56 L 99/55 L 96/55 L Pulse Oximetry 98 97 97 02/17/18 15:30 02/17/18 15:45 02/17/18 16:00 Temperature 98.6 F Pulse Rate 77 76 76 Respiratory Rate 18 18 18 Blood Pressure 96/55 L 99/58 L 97/55 L Pulse Oximetry 96 96 96 02/17/18 16:15 02/17/18 16:30 02/17/18 16:45 Temperature Pulse Rate 76 75 74 Respiratory Rate 18 19 18 Blood Pressure 98/54 L 108/61 94/50 L Pulse Oximetry 96 96 97 02/17/18 17:00 02/17/18 17:15 02/17/18 17:30 Temperature Pulse Rate 74 73 71 Respiratory Rate 18 18 18 Blood Pressure 92/50 L 93/52 L 93/53 L Pulse Oximetry 97 97 97 02/17/18 17:45 02/17/18 18:00 02/17/18 19:00 Temperature 98.3 F Pulse Rate 71 72 72 Respiratory Rate 18 18 18 Blood Pressure 93/52 L 91/51 L 91/51 L Pulse Oximetry 97 97 100 02/17/18 20:00 02/17/18 20:51 02/17/18 21:00 Temperature 98.6 F Pulse Rate 71 73 Respiratory Rate 18 18 18 Blood Pressure 91/54 L 96/53 L Pulse Oximetry 100 98 100 02/17/18 22:00 02/17/18 23:00 02/18/18 00:00 Temperature 97.9 F Pulse Rate 72 72 71 Respiratory Rate 18 18 18 Blood Pressure 100/55 L 101/58 L 104/58 L Pulse Oximetry 100 100 100 02/18/18 00:31 02/18/18 01:00 02/18/18 01:15 Temperature Pulse Rate 73 72 Respiratory Rate 19 18 18 Blood Pressure 100/56 L 106/59 L Pulse Oximetry 100 97 02/18/18 01:30 02/18/18 01:45 02/18/18 02:00 Temperature Pulse Rate 71 71 68 Respiratory Rate 18 18 18 Blood Pressure 107/58 L 107/57 L 102/58 L Pulse Oximetry 97 97 97 02/18/18 02:15 02/18/18 02:30 02/18/18 02:45 Temperature Pulse Rate 70 69 69 Respiratory Rate 18 18 18 Blood Pressure 106/59 L 105/59 L 105/58 L Pulse Oximetry 97 97 97 02/18/18 03:00 02/18/18 03:15 02/18/18 03:30 Temperature Pulse Rate 68 70 71 Respiratory Rate 18 18 18 Blood Pressure 109/59 L 111/59 L 106/60 Pulse Oximetry 97 97 97 02/18/18 03:45 02/18/18 04:00 02/18/18 04:15 Temperature 98.5 F Pulse Rate 70 74 86 Respiratory Rate 18 31 H 19 Blood Pressure 105/61 113/66 116/65 Pulse Oximetry 97 96 95 02/18/18 04:20 02/18/18 04:30 02/18/18 04:45 Temperature Pulse Rate 87 85 81 Respiratory Rate 18 18 18 Blood Pressure 107/57 L 108/58 L Pulse Oximetry 96 96 96 02/18/18 05:00 02/18/18 05:15 02/18/18 05:30 Temperature Pulse Rate 79 77 75 Respiratory Rate 18 18 18 Blood Pressure 107/58 L 106/58 L 107/59 L Pulse Oximetry 97 96 96 02/18/18 05:45 02/18/18 06:00 02/18/18 06:15 Temperature Pulse Rate 75 75 75 Respiratory Rate 18 18 18 Blood Pressure 110/60 111/60 108/58 L Pulse Oximetry 96 96 95 02/18/18 06:30 02/18/18 06:45 02/18/18 07:00 Temperature Pulse Rate 74 73 74 Respiratory Rate 18 18 18 Blood Pressure 112/60 110/60 110/60 Pulse Oximetry 96 95 95 02/18/18 07:15 02/18/18 07:30 02/18/18 08:00 Temperature 97.4 F L Pulse Rate 72 74 73 Respiratory Rate 18 18 18 Blood Pressure 107/57 L 110/60 106/57 L Pulse Oximetry 96 96 96 02/18/18 08:30 02/18/18 08:34 02/18/18 09:00 Temperature Pulse Rate 73 73 74 Respiratory Rate 18 18 18 Blood Pressure 106/58 L 106/58 L Pulse Oximetry 96 96 95 02/18/18 09:30 02/18/18 10:00 Temperature Pulse Rate 74 76 Respiratory Rate 18 18 Blood Pressure 103/59 L 101/55 L Pulse Oximetry 97 95 Intake & Output 02/17/18 02/18/18 02/18/18 18:59 06:59 18:59 Intake Total 801 / 801 1119 / 1119 200 / 200 Output Total 200 / 200 100 / 100 Balance 601 / 601 1019 / 1019 200 / 200 Weight 110.5 kg Intake: IV 650 / 650 644 / 644 200 / 200 Teflaro Inj 600 MG In NS Inj 200 / 200 100 / 100 100 / 100 100 ML @ 100 mls/hr IV.SIG Q8H LEROY Rx#:[id number] Prostaphlin Inj 2 GM In NS Inj 200 / 200 300 / 300 100 / 100 100 ML @ 200 mls/hr IV.SIG Q4H LEROY Rx#:[id number] fentaNYL 10 mcg/mL Premix Drip 250 / 250 244 / 244 2,500 mcg In 250 ml @ 50 MCG/HR 5 mls/hr IV.SIG TITRATE PRN Rx #:[id number] Oral 151 / 151 Tube Feeding 355 / 355 Tube Irrigant 120 / 120 Output: Urine Amount (Catheter) 200 / 200 100 / 100 Indwelling Urethral Catheter 200 / 200 100 / 100 Other: Bladder Irrigation Fluid - Amount Instilled Indwelling Urethral Catheter 1,700 Bladder Irrigation Fluid - Amount Drained Indwelling Urethral Catheter 1,900 Date of Last Bowel Movement 02/17/18 02/18/18 02/18/18 # Bowel Movements 1 # Incontinent Bowel Movements 1 02/14/18 10:10 Blood - Peripheral Aerobic Blood Culture - Preliminary No growth in 4 days 02/14/18 10:10 Blood - Peripheral Anaerobic Blood Culture - Preliminary No growth in 4 days 02/14/18 10:20 Blood - Peripheral Aerobic Blood Culture - Preliminary No growth in 4 days 02/14/18 10:20 Blood - Peripheral Anaerobic Blood Culture - Preliminary No growth in 4 days 02/15/18 02:25 Catheterized Urine Urine Culture - Final No growth in 48 hours 02/14/18 11:44 Sputum - Endotracheal Gram Stain - Final 02/14/18 11:44 Sputum - Endotracheal Sputum Culture - Final Heavy growth normal respiratory km 02/11/18 04:50 Blood - Peripheral Aerobic Blood Culture - Final No growth in 5 days 02/11/18 04:50 Blood - Peripheral Anaerobic Blood Culture - Final No growth in 5 days 02/11/18 04:57 Blood - Peripheral Aerobic Blood Culture - Final No growth in 5 days 02/11/18 04:57 Blood - Peripheral Anaerobic Blood Culture - Final No growth in 5 days Lab - Hematology Results 02/16/18 02/17/18 02/18/18 18:08 06:00 04:01 WBC 3.3 L 6.1 D 7.3 RBC 2.36 L 2.64 L 2.43 L Hgb 7.0 L 7.7 L 7.2 L Hct 21.4 L 23.1 L 21.7 L MCV 90.6 87.6 89.3 MCH 29.8 29.3 29.6 MCHC 32.9 33.4 33.2 RDW 21.8 H D 20.2 H 20.8 H Plt Count 133 L 128 L 119 L MPV 9.4 9.6 9.4 Prelim Diff (Auto) Slide review pending Slide review pending Neut % (Auto) 84.7 H 80.3 H Lymph % (Auto) 9.9 13.6 [place] % (Auto) 4.6 4.6 Eos % (Auto) 0.2 1.0 Baso % (Auto) 0.6 0.5 Neut # (Auto) 5.2 5.9 Lymph # (Auto) 0.6 L 1.0 [place] # (Auto) 0.3 0.3 Eos # (Auto) 0.0 0.1 Baso # (Auto) 0.0 0.0 WBC Differential Manual diff final . Diff Scan Auto diff confirmed Seg Neuts % (Manual) 68 Band Neuts % (Manual) 19 H Lymphocytes % (Manual) 3 L Monocytes % (Manual) 8 Myelocytes % (Man) 2 H Abs Neuts (Manual) 5.4 Nucleated RBCs/100 WBC 1 H Differential Comment . . Toxic Granulation 1+ H Platelet Estimate Low L Platelet Morphology Normal Stomatocytes 1+ H 02/18/18 10:45 WBC RBC Hgb 7.1 L Hct 22.0 L MCV MCH MCHC RDW Plt Count MPV Prelim Diff (Auto) Neut % (Auto) Lymph % (Auto) [place] % (Auto) Eos % (Auto) Baso % (Auto) Neut # (Auto) Lymph # (Auto) [place] # (Auto) Eos # (Auto) Baso # (Auto) WBC Differential Diff Scan Seg Neuts % (Manual) Band Neuts % (Manual) Lymphocytes % (Manual) Monocytes % (Manual) Myelocytes % (Man) Abs Neuts (Manual) Nucleated RBCs/100 WBC Differential Comment Toxic Granulation Platelet Estimate Platelet Morphology Stomatocytes Lab - Chemistry Results 02/16/18 02/16/18 02/16/18 12:37 15:11 18:49 Sodium Potassium Chloride Carbon Dioxide Anion Gap BUN Creatinine Estimated GFR POC Glucose 155 H 154 H 165 H Random Glucose Lactic Acid Calcium Phosphorus Magnesium Total Bilirubin AST ALT Alkaline Phosphatase Ammonia Total Protein Albumin 02/16/18 02/17/18 02/17/18 21:05 05:44 06:00 Sodium 140 Potassium 4.6 Chloride 104 Carbon Dioxide 18.2 L Anion Gap 18 H BUN 69 H Creatinine 5.09 H Estimated GFR 12 L POC Glucose 164 H 142 H Random Glucose 129 H Lactic Acid Calcium 7.9 L Phosphorus 7.3 H Magnesium 2.0 Total Bilirubin 3.4 H AST 51 H ALT 23 Alkaline Phosphatase 446 H Ammonia Total Protein 5.9 L Albumin 1.2 L 02/17/18 02/17/18 02/17/18 11:21 15:19 15:48 Sodium Potassium Chloride Carbon Dioxide Anion Gap BUN Creatinine Estimated GFR POC Glucose 113 H 56 L 124 H Random Glucose Lactic Acid Calcium Phosphorus Magnesium Total Bilirubin AST ALT Alkaline Phosphatase Ammonia Total Protein Albumin 02/17/18 02/17/18 02/17/18 16:05 17:07 21:18 Sodium Potassium Chloride Carbon Dioxide Anion Gap BUN Creatinine Estimated GFR POC Glucose 78 100 Random Glucose Lactic Acid 2.1 H Calcium Phosphorus Magnesium Total Bilirubin AST ALT Alkaline Phosphatase Ammonia Total Protein Albumin 02/18/18 02/18/18 02/18/18 00:34 04:01 04:01 Sodium 141 Potassium 4.6 Chloride 104 Carbon Dioxide 19.7 L Anion Gap 17 H BUN 74 H Creatinine 5.55 H Estimated GFR 11 L POC Glucose 130 H Random Glucose 113 H Lactic Acid Calcium 7.7 L Phosphorus 8.7 H D Magnesium 2.0 Total Bilirubin 2.8 H AST 42 H ALT 21 Alkaline Phosphatase 499 H Ammonia Less than 10 L Total Protein 6.0 L Albumin 1.2 L 02/18/18 06:09 Sodium Potassium Chloride Carbon Dioxide Anion Gap BUN Creatinine Estimated GFR POC Glucose 148 H Random Glucose Lactic Acid Calcium Phosphorus Magnesium Total Bilirubin AST ALT Alkaline Phosphatase Ammonia Total Protein Albumin Imaging: ITS Impressions Cholangiopancreatography MRI 02/10/18 00:00 CONCLUSION: No evidence of biliary obstruction Abdomen X-Ray 02/11/18 00:00 CONCLUSION: Nonspecific bowel gas pattern with some mildly dilated loops of colon. No definite mechanical obstruction is demonstrated. Abdomen Ultrasound 02/14/18 00:00 CONCLUSION: 1. Small volume ascites Chest X-Ray 02/18/18 06:00 CONCLUSION: Bibasilar airspace disease and probable small right pleural effusion Physical Exam: GENERAL: Sedated, on the vent, NAD SKIN: Cool and dry, no generalized rash HEAD: Atraumatic. Normocephalic. No temporal or scalp tenderness. EYES: Pupils equal round and reactive. Scleral icterus. No injection or drainage. No petechia ENT: Orally intubated NECK: Trachea midline. Supple, nontender, no meningeal signs. CARDIOVASCULAR: HS audible. RESPIRATORY: AE decreased in the bases R>L. Right side CT with serous fluid noted GASTROINTESTINAL: Abdomen distended, some grimacing during palpation MUSCULOSKELETAL: Extremities without clubbing, cyanosis. Septic emboli to feet noted. Has a large hemorrhagic bullous lesion on L palm NEUROLOGICAL: Opens eyes, ?tracks, did not follow commands for me. Moves extremities spontaneously sometimes. Psych could not be assessed IV line sites ok. Assessment and Plan - Plan MSSA sepsis, Septic Shock, on pressors Right side Pulm Empyema, MSSA Rule out endocarditis. Polymicrobial PNA ( PSAE, second GNR, Staph aureus) also likely aspiration in setting of alcoholism Cardiomegaly: ? alcohol related vs CAD. MSSA in urine. Acute resp failure on vent Acute oliguric renal failure: prerenal, sepsis. - on CVVHD Acute metabolic encephalopathy: sepsis, metabolic. Leukocytosis Thrombocytopenia: sepsis, no DIC RECOMMENDATION Continue IV Oxacillin for MSSA Continue Teflaro IV (as second MSSA agent pending clearance of bacteremia) Follow cultures If goals remain aggressive would like to get CT C/A/P to look for evidence of further dissemination. troy AGUERO Cezar he informs me patient would like to transition to comfort care possibly today per his discussion with palliative care. troy Tomlinson will hold off CT imaging as well as MRI spine (concern for epidural abscess due to retention of urine) EMILY negative. Follow cultures. Monitor progress D/W RN Prognosis guarded. I will be OOT from 02/19/2018. covering for me this weekend.
[2018-02-18] MEDS ORDERED: Bisacodyl 10 MG Supp RECTAL PRN (16:03)
[2018-02-18] MEDS ORDERED: Acetaminophen 650 MG Supp RECTAL PRN (16:03)
[2018-02-18] MEDS ORDERED: HYDROmorphone PF Inj 2 MG/ML Vial IV.PUSH ONE ×2 (16:03)
[2018-02-18] MEDS ORDERED: HYDROmorphone PF Inj 2 MG/ML Vial IV.PUSH PRN ×2 (16:03)
--- NOTE | 2018-02-18 16:25 | P.PNNP ---
Subjective Interval history: Patient remain on the vent. and clinically same. Physical Exam Vital signs: Vital Signs 02/17/18 16:30 02/17/18 16:45 02/17/18 17:00 Temperature Pulse Rate 75 74 74 Respiratory Rate 19 18 18 Blood Pressure 108/61 94/50 L 92/50 L Pulse Oximetry 96 97 97 02/17/18 17:15 02/17/18 17:30 02/17/18 17:45 Temperature Pulse Rate 73 71 71 Respiratory Rate 18 18 18 Blood Pressure 93/52 L 93/53 L 93/52 L Pulse Oximetry 97 97 97 02/17/18 18:00 02/17/18 19:00 02/17/18 20:00 Temperature 98.3 F 98.6 F Pulse Rate 72 72 71 Respiratory Rate 18 18 18 Blood Pressure 91/51 L 91/51 L 91/54 L Pulse Oximetry 97 100 100 02/17/18 20:51 02/17/18 21:00 02/17/18 22:00 Temperature Pulse Rate 73 72 Respiratory Rate 18 18 18 Blood Pressure 96/53 L 100/55 L Pulse Oximetry 98 100 100 02/17/18 23:00 02/18/18 00:00 02/18/18 00:31 Temperature 97.9 F Pulse Rate 72 71 Respiratory Rate 18 18 19 Blood Pressure 101/58 L 104/58 L Pulse Oximetry 100 100 02/18/18 01:00 02/18/18 01:15 02/18/18 01:30 Temperature Pulse Rate 73 72 71 Respiratory Rate 18 18 18 Blood Pressure 100/56 L 106/59 L 107/58 L Pulse Oximetry 100 97 97 02/18/18 01:45 02/18/18 02:00 02/18/18 02:15 Temperature Pulse Rate 71 68 70 Respiratory Rate 18 18 18 Blood Pressure 107/57 L 102/58 L 106/59 L Pulse Oximetry 97 97 97 02/18/18 02:30 02/18/18 02:45 02/18/18 03:00 Temperature Pulse Rate 69 69 68 Respiratory Rate 18 18 18 Blood Pressure 105/59 L 105/58 L 109/59 L Pulse Oximetry 97 97 97 02/18/18 03:15 02/18/18 03:30 02/18/18 03:45 Temperature Pulse Rate 70 71 70 Respiratory Rate 18 18 18 Blood Pressure 111/59 L 106/60 105/61 Pulse Oximetry 97 97 97 02/18/18 04:00 02/18/18 04:15 02/18/18 04:20 Temperature 98.5 F Pulse Rate 74 86 87 Respiratory Rate 31 H 19 18 Blood Pressure 113/66 116/65 Pulse Oximetry 96 95 96 02/18/18 04:30 02/18/18 04:45 02/18/18 05:00 Temperature Pulse Rate 85 81 79 Respiratory Rate 18 18 18 Blood Pressure 107/57 L 108/58 L 107/58 L Pulse Oximetry 96 96 97 02/18/18 05:15 02/18/18 05:30 02/18/18 05:45 Temperature Pulse Rate 77 75 75 Respiratory Rate 18 18 18 Blood Pressure 106/58 L 107/59 L 110/60 Pulse Oximetry 96 96 96 02/18/18 06:00 02/18/18 06:15 02/18/18 06:30 Temperature Pulse Rate 75 75 74 Respiratory Rate 18 18 18 Blood Pressure 111/60 108/58 L 112/60 Pulse Oximetry 96 95 96 02/18/18 06:45 02/18/18 07:00 02/18/18 07:15 Temperature Pulse Rate 73 74 72 Respiratory Rate 18 18 18 Blood Pressure 110/60 110/60 107/57 L Pulse Oximetry 95 95 96 02/18/18 07:30 02/18/18 08:00 02/18/18 08:30 Temperature 97.4 F L Pulse Rate 74 73 73 Respiratory Rate 18 18 18 Blood Pressure 110/60 106/57 L 106/58 L Pulse Oximetry 96 96 96 02/18/18 08:34 02/18/18 09:00 02/18/18 09:30 Temperature Pulse Rate 73 74 74 Respiratory Rate 18 18 18 Blood Pressure 106/58 L 103/59 L Pulse Oximetry 96 95 97 02/18/18 10:00 02/18/18 10:30 02/18/18 11:00 Temperature Pulse Rate 76 75 76 Respiratory Rate 18 18 18 Blood Pressure 101/55 L 100/56 L 99/56 L Pulse Oximetry 95 95 95 02/18/18 11:30 02/18/18 11:34 02/18/18 12:00 Temperature 97.9 F Pulse Rate 78 77 76 Respiratory Rate 18 18 18 Blood Pressure 108/58 L 107/59 L Pulse Oximetry 95 95 96 02/18/18 12:30 02/18/18 13:00 02/18/18 13:30 Temperature Pulse Rate 79 78 76 Respiratory Rate 18 18 18 Blood Pressure 116/59 L 115/60 112/60 Pulse Oximetry 95 96 96 02/18/18 14:00 02/18/18 14:30 02/18/18 15:00 Temperature Pulse Rate 77 78 82 Respiratory Rate 18 18 18 Blood Pressure 111/60 119/59 L 123/64 Pulse Oximetry 95 96 94 L 02/18/18 15:30 02/18/18 16:00 Temperature 98.3 F Pulse Rate 80 80 Respiratory Rate 18 18 Blood Pressure 115/59 L 113/60 Pulse Oximetry 95 95 Intake & Output 02/17/18 02/18/18 02/18/18 18:59 06:59 18:59 Intake Total 801 / 801 1119 / 1119 400 / 400 Output Total 200 / 200 100 / 100 Balance 601 / 601 1019 / 1019 400 / 400 Weight 110.5 kg Intake: IV 650 / 650 644 / 644 400 / 400 Teflaro Inj 600 MG In NS Inj 200 / 200 100 / 100 100 / 100 100 ML @ 100 mls/hr IV.SIG Q8H LEROY Rx#:[id number] Prostaphlin Inj 2 GM In NS Inj 200 / 200 300 / 300 300 / 300 100 ML @ 200 mls/hr IV.SIG Q4H LEROY Rx#:[id number] fentaNYL 10 mcg/mL Premix Drip 250 / 250 244 / 244 2,500 mcg In 250 ml @ 50 MCG/HR 5 mls/hr IV.SIG TITRATE PRN Rx #:[id number] Oral 151 / 151 Tube Feeding 355 / 355 Tube Irrigant 120 / 120 Output: Urine Amount (Catheter) 200 / 200 100 / 100 Indwelling Urethral Catheter 200 / 200 100 / 100 Other: Bladder Irrigation Fluid - Amount Instilled Indwelling Urethral Catheter 1,700 Bladder Irrigation Fluid - Amount Drained Indwelling Urethral Catheter 1,900 Date of Last Bowel Movement 02/17/18 02/18/18 02/18/18 # Bowel Movements 1 # Incontinent Bowel Movements 1 Narrative: GENERAL: Intubated, on the vent, remain unresponsive. SKIN: Warm and dry. NECK: 2+ carotid upstrokes. CARDIOVASCULAR: Regular rate and rhythm without murmurs, gallops or rubs. RESPIRATORY: Normal breath sounds - equal bilaterally, with wheezes, rales or rubs. PERIPHERY: No cyanosis, trace edema. - Urinary Catheter Management Coude Cath placed during this visit: yes, but has since been removed by the nurse Urethral indwelling: Yes Reason for continuing: Hourly intake/output Insertion date: 02/02/18 Removal date: 02/15/18 Removal time: 19:45 Indwelling Urethral Catheter Cath placed during this visit: yes Reason for continuing: Chronic Urinary Retention Insertion date: 02/15/18 Insertion time: 20:00 Assessment and Plan - Assessment (1) Acute renal failure (ARF) Code(s): N17.9 - Acute kidney failure, unspecified Status: Acute (2) Sepsis Code(s): A41.9 - Sepsis, unspecified organism Status: Acute (3) Respiratory failure Code(s): J96.90 - Respiratory failure, unspecified, unspecified whether with hypoxia or hypercapnia Status: Acute (4) Hypotension Code(s): I95.9 - Hypotension, unspecified Status: Acute Plan: Acute renal failure Anemia ICD Codes: N17.9 - Acute kidney failure, unspecified Plan: Patient has minimal UOP Initially on CRRT started on 02/04 for acute renal failure Vascath was removed, and re inserted. HD yesterday tolerated well Continue antibiotics. Creatinine remains elevated. Family now decided for no HD and with drawl of the treatment. I will sign off from Nephrology. Respiratory failure Management per CC Anemia Respiratory failure Epogen with dialysis . Hgb. remain low, has hematuria, For cystoscopy, to go to OR. Sepsis ICD Codes: A41.9 - Sepsis, unspecified organism Plan: ID following EMILY negative, antibiotics per ID Rhabdomyolysis ICD Codes: M62.82 - Rhabdomyolysis Plan: Monitor CPK UTI (lower urinary tract infection) ICD Codes: N39.0 - Urinary tract infection, site not specified Plan: Patient has MSSA and ID is following Pneumonia ICD Codes: J18.9 - Pneumonia, unspecified organism Plan: Pleural effusion drained Family meeting with palliative care with possible withdrawal to comfort care
--- NOTE | 2018-03-03 12:20 | MD ---
cc: Donna Bell MD DATE OF DISCHARGE: 02/18/2018 SUMMARY HOSPITAL COURSE: The patient is a 57-year-old male with a history of ETOH abuse. According to family, he drinks greater than a pint a day for at least 25 years. He was found unresponsive at home and he was last seen normal 5 days prior to admission. Per EMS, the patient was severely altered. He was intubated for acute hypoxemia and hypercarbia. The patient also was found to be in SVT with heart rate greater than 200. In the ED, he was cardioverted x 2 and was given Lopressor 5 mg, which did not resolve his tachycardia. The patient was given amiodarone ,magnesium and his blood gas showed severe metabolic acidosis with a pH of less than 7.2. The patient was given bicarbonate and calcium chloride for hypocalcemia. In addition, he was started on norepinephrine for persistent hypotension and shock. He was placed on fentanyl infusion for sedation and vent synchrony. He had a CT scan of the brain on 02/02/2018, which showed no acute process. EEG showed diffuse encephalopathy. The patient was placed on thiamine, multivitamins and folic acid. He had a right pigtail catheter placed on 02/03/2018 for right pleural effusion, and the pleural fluid analysis was compatible with empyema. The pigtail catheter was discontinued the night of 02/13/2018. Echocardiogram showed an EF of 60-65% with no regional wall motion abnormalities. He also underwent EMILY on 02/10/2018 which showed no vegetations. The patient also had acute renal failure as stated above, in addition to acute rhabdomyolysis, obstructive uropathy and hematuria. The patient was followed by Dr. Dinh from nephrology service and underwent hemodialysis. Also, the patient was seen by Dr. Lopez and had continuous bladder irrigation. Due to elevated liver enzymes with hyperbilirubinemia, the patient was seen by GI service and underwent MRCP on 02/10/2018, which showed no biliary obstruction. Nutrition support was provided through tube feeds where patient was receiving Nepro with a goal rate of 50 mL an hour. He had a KUB of the abdomen on 02/11/2018, which showed no definite mechanical obstruction. The patient also noted to be anemic requiring blood transfusions, thrombocytopenic and coagulopathic. He received a blood transfusion on 02/08/2018 and 02/11/2018, and he was also followed by infectious disease service and was on broad spectrum antibiotics. He had a coagulase-negative Staphylococcus bacteremia on 02/08/2018, gram-negative rods in the sputum on 02/02/2018, Staphylococcus aureus in the urine on 02/02/2018. The patient was placed on sliding scale insulin with Accu-Cheks to maintain euglycemia and was on Prevacid for GI prophylaxis. Subcutaneous heparin was held due to anemia requiring blood transfusion, thrombocytopenia and hematuria. Palliative care was following. After extensive discussion with the patient's son on the phone, along with the patient's brother at the bedside, they all were in agreement to proceed with withdrawal of life support per son's request and transition to comfort care. Case was discussed with Dr. Story from palliative care, who also spoke to the family and the patient on 02/18/2018. MD URBAN Littlejohn/DENZEL , 11:51 AM , 12:03 PM
== END 2018-02-18 19:45 | disposition expired ==
LOC: HIMC 17:21
PROVIDERS: ADMIT Internal Medicine Critical Care Medicine; ATTEND Internal Medicine Critical Care Medicine